=== PATIENT | male | born 1955 | race Caucasian/White ===

== ENCOUNTER 2023-03-07 08:36 | Outpatient (OUT) | payer OTHER, SELFPAY ==
[2023-03-07 09:35] LABS: Basophils Absolute Auto 0.1 10^3/uL (0.0-0.1); Basophils Percent Auto 0.9 % (0.2-2.0); Eosinophils Absolute Auto 0.2 10^3/uL (0.0-0.7); Hematocrit 38.3 % (42.0-54.0); Immature Granulocytes Abs Auto 0.07 10^3/uL (0.00-0.03); Immature Granulocytes Pct Auto 1.1 % (0.0-0.5); Lymphocytes Percent Auto 15.1 % (20.5-60.0); Mean Corpuscular HGB Conc 33.9 g/dL (29.9-35.2); Mean Platelet Volume 9.9 fL (9.5-13.5); Monocytes Absolute Auto 0.5 10^3/uL (0.3-0.8); Monocytes Percent Auto 7.1 % (1.7-12.0); Neutrophils Absolute Auto 4.6 10^3/uL (1.4-6.5); Neutrophils Percent Auto 72.8 % (43.0-75.0); Platelet Count 285 10^3/uL (150-450); Red Blood Count 3.61 10^6/uL (4.70-6.10); Red Cell Distribution Width 15.2 % (11.0-15.0); White Blood Count 6.4 10^3/uL (4.0-11.0)
[2023-03-07 09:38] LABS: Alanine Aminotransferase 27 U/L (16-63); Albumin Globulin Ratio 1.1; Albumin Level 3.9 g/dL (3.4-5.0); Alkaline Phosphatase 72 U/L (46-116); Anion Gap 14.7; Aspartate Amino Transferase 13 U/L (15-37); BUN Creatinine Ratio 16.1; Bilirubin Total 0.4 mg/dL (0.2-1.0); Calcium 9.3 mg/dL (8.5-10.1); Carbon Dioxide 23.6 mmol/L (21.0-32.0); Chloride 109 mmol/L (98-107); Estimated GFR (African America 48 (>=60); Estimated GFR (Non-African Ame 39 (>=60); Globulin 3.7 g/dL; Glucose 125 mg/dL (74-106); Potassium 4.3 mmol/L (3.5-5.1); Sodium 143 mmol/L (136-145); Total Protein 7.6 g/dL (6.4-8.2)
[2023-03-07 09:53] LABS: Mean Corpuscular Volume 106.1 fL (80.0-94.0)
[2023-03-08 16:09] LABS: Alpha-1-Globulin 0.2 g/dL (0.0-0.4); Alpha-2-Globulin 0.7 g/dL (0.4-1.0); Erythropoietin (EPO), Serum 23.6 mIU/mL (2.6-18.5); Free Kappa Lt Chains,S 57.7 mg/L (3.3-19.4); Free Lambda Lt Chains,S 39.2 mg/L (5.7-26.3); Immunoglobulin A, Qn, Serum 250 mg/dL (61-437); Immunoglobulin G, Qn, Serum 1051 mg/dL (603-1613); Immunoglobulin M, Qn, Serum 97 mg/dL (20-172); Kappa/Lambda Ratio,S 1.47 (0.26-1.65); Protein, Total 6.8 g/dL (6.0-8.5)
== END 2023-03-07 08:37 | disposition home or self-care (01) ==
LOC: LAB 08:41
PROVIDERS: PCP Family Medicine
DX: D64.9 Anemia, unspecified (principal); D75.89 Other specified diseases of blood and blood-forming organs; E11.9 Type 2 diabetes mellitus without complications
CPT/HCPCS: 36415; 80053; 82668; 82784; 84155; 84165; 85025; 86334

== ENCOUNTER 2023-10-26 14:44 | Outpatient (OUT) | payer OTHER, SELFPAY ==
[2023-10-26 15:14] LABS: Potassium 4.4 mmol/L (3.5-5.1)
== END 2023-10-26 14:45 | disposition home or self-care (01) ==
LOC: LAB 14:45
PROVIDERS: PCP Family Medicine; Visit Provider Family Medicine
DX: N18.32 Chronic kidney disease, stage 3b (principal)
CPT/HCPCS: 36415; 84132

== ENCOUNTER 2023-12-03 18:34 | Emergency (ER) | payer OTHER, SELFPAY ==
[2023-12-03] VITALS (8 sets, daily range): BP systolic 126–179; BP diastolic 64–80; PULSE 69–88; TEMP 36.7; O2SAT 93–98; BMI 32.7
--- OUTSIDE RECORDS SUMMARY | 2023-12-03 18:42 | XMS_ITS | CCD ---
Author Organization [facility] Care Team Providers Care Apprentice Carpenter Name Role Phone MARIA ALEJANDRA ANDREA Attending Unavailable MARIA ALEJANDRA ANDREA Admitting Unavailable FAWWAD, NEVILLE Primary Care Unavailable MARIA ALEJANDRA ANDREA Consulting Unavailable MARKER, DR DRUMMOND Admitting Unavailable FAWWAD, NEVILLE Primary Care Unavailable MARKER, DR DRUMMOND Consulting Unavailable MARKER, DR DRUMMOND Attending Unavailable AHDOJOHN PAUL, LINDA Consulting Unavailable King WilliamJhon vazquez Consulting Unavailable FAWWAD, NEVILLE Admitting Unavailable FAWWAD, NEVILLE Primary Care Unavailable RADHA, DR GALILEO Bueno Consulting Unavailable FAWWAD, NEVILLE Attending Unavailable FAWWAD, NEVILLE Consulting Unavailable RAUL BYRD Admitting Unavailable RAUL BYRD Consulting Unavailable FAWWAD, NEVILLE Primary Care Unavailable RAUL BYRD Attending Unavailable RAUL BYRD Attending Unavailable RAUL BYRD Admitting Unavailable RAUL BYRD Primary Care Unavailable RAUL BYRD Consulting Unavailable Raul Byrd Primary Care Physician [phone] Raul Byrd Primary Care Physician Al-Marrawi, Yamilethd Yaser Attending Unavailabl e Al-Marrawi, Mhd Yaser Admitting Unavailabl e Al-Marrawi, Mhd Yaser Attending Unavailabl e Al-Marrawi, Mhd Yaser Admitting Unavailabl e Al-Marrawi, Mhd Yaser Attending Unavailabl e Al-Marrawi, Mhd Yaser Admitting Unavailabl e Al-Marrawi, Mhd Yaser Attending Unavailabl e Al-Marrawi, Mhd Yaser Admitting Unavailabl e Al-Marrawi, Mhd Yaser Attending Unavailabl e Al-Marrawi, Mhd Yaser Attending Unavailabl e Al-Marrawi, Mhd Yaser Admitting Unavailabl e Al-Marrawi, Mhd Yaser Attending Unavailabl Yariel Nguyen Attending Unavailabl e Rox, Camille Child Attending Unavailable Yariel Sethi Attending Unavailsimon e Rox, Camille Child Attending Unavailable Raul Byrd Referring Unavailable Raul Byrd Attending Unavailable Raul Byrd Admitting Unavailable Raul Byrd Attending Unavailable SHARI TURNER Attending Unavailable Raul Byrd Attending Unavailable Raul Byrd Attending Unavailable Raul Byrd Attending Unavailable Allergies Allergy Classification Reported Allergen(s) Allergy Type Date of Onset Reaction(s) Facility (2 sources) Amino Acids; 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: [lisinopril] Drug Allergy [facility] Repository (2 sources) Dextroamphetamin e; 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: [Lipitor] Drug Allergy [facility] Rep[facility] (2 sources) Losartan; 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: [losartan] Drug Allergy 2 [facility] Rep[facility] (2 sources) Simvastatin; 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: [simvastatin] Drug Allergy [facility] Rep[facility] (13 sources) atorvastatin; 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: [atorvastatin] Drug Allergy Cramp (finding) [facility] (14 sources) Dextroamphetamin e; 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: [dextroamphetami ne] Drug Allergy Cramp (finding) [facility] (14 sources) Isoleucine / Leucine / Valine; 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: [parenteral nutrition solution] Drug Allergy Cramp (finding) [facility] (13 sources) Lisinopril; 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: [lisinopril] Drug Allergy Cramp (finding) [facility] (13 sources) Losartan; 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: [losartan] Drug Allergy 2 Other: See Comments [facility] (13 sources) Simvastatin; 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: [simvastatin] Drug Allergy Cramp (finding) [facility] Medications Current Medications Medication Drug Class(es) Dates Sig (Normalized) Sig (Original) 0.5 ML semaglutide 2 MG/ML Auto-Injector (2 sources) Start: 10-10-2023 inject 1 mg by subcutaneous injection every week semaglutide 1 mg/0.5 mL (1 mg dose) subcutaneous solution 1 mg, SubCutaneous, qWeek, # 4 EA, Refills(s) 0, Pharmacy: [facility]/pharmacy #[id number], 172, cm, 10/10/23 13:06:00 EST, Height/Length Dosing, 103.5, kg, 10/10/23 13:10:00 EST, Weight Dosing Start Date: 10/10/23 Status: Ordered 1 mg dose 1.5 ml semaglutide 1.34 mg/ml pen injector (14 sources) Start: 04-11-2023 inject 1 mg by subcutaneous injection every week Ozempic 2 mg/1.5 mL (1 mg dose) subcutaneous solution 1 mg, SubCutaneous, qWeek, 3 EA, Refill(s) 3, [facility] [id number], 172, cm, 05/31/23 15:29:00 EDT, Height/Length Dosing, 102.6, kg, 05/31/23 15:29:00 EDT, Weight Dosing Start Date: 06/08/23 Status: Ordered Start: 01-10-2023 inject 1 mg by subcu taneous injection every week Ozempic 2 mg/1.5 mL (1 mg dose) subcutaneous solution 1 mg, SubCutaneous, qWeek, 3 EA, Refill(s) 3, [facility]/pharmacy #[id number], 172, cm, 01/10/23 14:25:00 EDT, Height/Length Dosing, 102.5, kg, 01/10/23 14:25:00 EDT, Weight Dosing Start Date: 01/10/23 Status: Ordered Start: 09-09-2022 inject 0.5 mg by sub cutaneous injection every week Ozempic 2 mg/1.5 mL (0.25 mg or 0.5 mg dose) subcutaneous solution 0.5 mg, SubCutaneous, qWeek, 9 mL, Refill(s) 1, 90 day supply, [facility]/pharmacy #[id number], 172, cm, 09/09/22 15:33:00 EST, Height/Length Dosing, 104.4, kg, 09/09/22 15:33:00 EST, Weight Dosing Start Date: 09/09/22 Status: Ordered Start: 03-16-2022 inject 0.25 mg by velazco bcutaneous injection every week Ozempic 2 mg/1.5 mL (0.25 mg or 0.5 mg dose) subcutaneous solution 0.25 mg, SubCutaneous, qWeek, 9 mL, Refill(s) 1, 90 day supply, [facility]/pharmacy #[id number], 172, cm, 02/11/22 15:55:00 EDT, Height/Length Dosing, 110.5, kg, 02/11/22 15:55:00 EDT, Weight Dosing Start Date: 03/16/22 Status: Ordered Start: 02-11-2022 End: 03-11-2022 inject 0.25 mg by subcutaneous injection every week Ozempic 2 mg/1.5 mL (0.25 mg or 0.5 mg dose) subcutaneous solution 0.25 mg, SubCutaneous, qWeek for 4 week(s), 2 EA, Refill(s) 0, [facility]/pharmacy #[id number], 172, cm, 02/11/22 15:55:00 EDT, Height/Length Dosing, 110.5, kg, 02/11/22 15:55:00 EDT, Weight Dosing Start Date: 02/11/22 Stop Date: 03/11/22 Status: Ordered valsartan 160 mg oral tablet (13 sources) Angiotensin 2 Receptor Mac Start: 10-10-2023 take 1 tablet by mouth once daily valsartan 160 mg Tab 160 mg = 1 tab(s), Oral, Daily, # 90 tab(s), Refills(s) 3, Pharmacy: [facility]/pharmacy #[id number], 172, cm, 10/10/23 13:06:00 EST, Height/Length Dosing, 103.5, kg, 10/10/23 13:10:00 EST, Weight Dosing Start Date: 10/10/23 Status: Ordered Start: 01-10-2023 take 1 tablet by demetrius th once daily valsartan 160 mg Tab 160 mg = 1 tab(s), Oral, Daily, # 90 tab(s), Refills(s) 3, Pharmacy: [facility]/pharmacy #[id number], 172, cm, 01/10/23 14:25:00 EDT, Height/Length Dosing, 102.5, kg, 01/10/23 14:25:00 EDT, Weight Dosing Start Date: 01/10/23 Status: Ordered Start: 09-09-2022 take 1 tablet by demetrius th once daily valsartan 160 mg Tab 160 mg = 1 tab(s), Oral, Daily, # 90 tab(s), Refills(s) 3, Pharmacy: [facility]/pharmacy #[id number], 172, cm, 09/09/22 15:33:00 EST, Height/Length Dosing, 104.4, kg, 09/09/22 15:33:00 EST, Weight Dosing Start Date: 09/09/22 Status: Ordered Start: 02-11-2022 End: 08-10-2022 take 1 tablet by mouth once daily valsartan 160 mg Tab 160 mg = 1 tab(s), Oral, Daily, X 90 day(s), # 90 tab(s), Refills(s) 1, Pharmacy: [facility]/pharmacy #[id number], 172, cm, 02/11/22 15:55:00 EDT, Height/Length Dosing, 110.5, kg, 02/11/22 15:55:00 EDT, Weight Dosing Start Date: 02/11/22 Stop Date: 08/10/22 Status: Ordered vitamin b12 1 mg/ml injectable solution (6 sources) Vitamin B12 Start: 10-03-2023 inject 1000 ug by intramuscular injection every other week cyanocobalamin 1000 mcg/mL Inj 1,000 mcg, IntraMuscular, q2wk, # 30 mL, Refills(s) 5, Pharmacy: [facility]/pharmacy #[id number], 172, cm, 10/03/23 15:12:00 EST, Height/Length Dosing, 102.3, kg, 10/03/23 15:12:00 EST, Weight Dosing Start Date: 10/03/23 Status: Ordered Start: 10-03-2023 inject 1000 ug by in tramuscular injection every other week cyanocobalamin 1000 mcg/mL Inj 1,000 mcg, IntraMuscular, q2wk, # 30 mL, Refills(s) 5, Pharmacy: [facility]/pharmacy #[id number], 172, cm, 10/03/23 15:12:00 EST, Height/Length Dosing, 102.3, kg, 10/03/23 15:12:00 EST, Weight Dosing Start Date: 10/03/23 Status: Ordered Start: 05-31-2023 inject 1000 ug by in tramuscular injection every other week cyanocobalamin 1000 mcg/mL Inj 1,000 mcg, IntraMuscular, q2wk, # 30 mL, Refills(s) 5, Pharmacy: [facility]/pharmacy #[id number], 172, cm, 05/31/23 15:29:00 EDT, Height/Length Dosing, 102.6, kg, 05/31/23 15:29:00 EDT, Weight Dosing Start Date: 05/31/23 Status: Ordered Problems Active Problems Problem Classification Problem Date Documented Da te Episodic/Chronic Abdominal pain (5 sources) Unspecified abdominal pain; 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: [Lower abdominal pain, unspecified] Onset: 10-30-2021 Episodic Acute and unspecified renal failure (1 source) Acute kidney failure, unspecified; 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: [ACUTE KIDNEY FAILURE UNSPECIFIED] Onset: 11-05-2021 Episodic Cancer of prostate (13 sources) Malignant tumor of prostate Onset: 11-04-2021 11-12-2021 Chronic Cancer of prostate (1 source) Personal history of malignant neoplasm of prostate; 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: [PERSONAL HX MALIG NEOPLASM PROSTATE] Onset: 10-30-2021 Episodic Chronic kidney disease (16 sources) Chronic kidney disease, unspecified; 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: [Chronic kidney disease stage 3] Onset: 10-30-2021 Chronic Deficiency and other anemia (11 sources) Macrocytic anemia 02-16-2022 Episodic Deficiency and other anemia (2 sources) Nutritional anemia; 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: [Nutritional anemia, unspecified] Onset: 09-09-2022 Episodic Diabetes mellitus with complications (20 sources) Type 2 diabetes mellitus with diabetic chronic kidney disease; 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: [Type 2 diabetes mellitus with diabetic nephropathy] Onset: 10-15-2021 Chronic Diabetes mellitus without complication (6 sources) Type 2 diabetes mellitus without complications; 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: [Type 2 diabetes mellitus] Onset: 11-05-2021 11-12-2021 Chronic E Codes: Adverse effects of medical drugs (1 source) Adverse effect of other opioids, initial encounter; 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: [ADVERSE EFF OTH OPIOIDS INITIAL ENC] Onset: 11-05-2021 Episodic Essential hypertension (15 sources) Essential (primary) hypertension; 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: [Essential hypertension] Onset: 11-04-2021 Chronic Other aftercare (1 source) Other group home (current) drug therapy; 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: [OTH PENITENTIARY CURRENT DRUG THERAPY] Onset: 11-05-2021 Episodic Other gastrointestinal disorders (1 source) Drug induced constipation; 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: [DRUG INDUCED CONSTIPATION] Onset: 11-05-2021 Episodic Other gastrointestinal disorders (6 sources) Constipation 04-11-2023 Episodic Other male genital disorders (3 sources) Testicular pain, unspecified; 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: [TESTICULAR PAIN UNSPECIFIED] Onset: 10-28-2021 Episodic Other male genital disorders (1 source) Hydrocele, unspecified; 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: [HYDROCELE UNSPECIFIED] Onset: 10-30-2021 Episodic Other nutritional; endocrine; and metabolic disorders (1 source) Obese class I; 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: [Body mass index (BMI) 34.0-34.9, adult] Onset: 05-17-2022 Chronic Other nutritional; endocrine; and metabolic disorders (1 source) Obese class II; 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: [Body mass index (BMI) 35.0-35.9, adult] Onset: 09-09-2022 Chronic Other nutritional; endocrine; and metabolic disorders (1 source) Overweight in adulthood with body mass index of 25 or more but less than 30; 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: [Body mass index (BMI) 25.0-25.9, adult] Onset: 02-11-2022 Episodic Other screening for suspected conditions (not mental disorders or infectious disease) (1 source) Encounter for screening for malignant neoplasm of prostate; 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: [ENC SCREEN MALIG NEOPLASM PROSTATE] Onset: 10-15-2021 Episodic Residual codes; unclassified (1 source) Acquired absence of other genital organ(s); 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: [ACQUIRED ABSENCE OTH GENITAL ORGANS] Onset: 10-30-2021 Episodic Residual codes; unclassified (1 source) Patient encounter status; 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: [Other specified health status] Onset: 02-11-2022 Episodic Screening and history of mental health and substance abuse codes (3 sources) Personal history of nicotine dependence; 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: [H/O: Disorder] Onset: 10-30-2021 Episodic Spondylosis; intervertebral disc disorders; other back problems (1 source) Radiculopathy, lumbar region; 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: [RADICULOPATHY LUMBAR REGION] Onset: 11-05-2021 Episodic Sprains and strains (1 source) Strain of muscle, fascia and tendon of abdomen, initial encounter; 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: [STRAIN MUSC FASCIA TENDON ABD INIT] Onset: 11-05-2021 Episodic Unclassified (3 sources) LOW BACK PAIN, UNSPECIFIED; 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: [LOW BACK PAIN, UNSPECIFIED] Onset: 11-05-2021 Unclassified (1 source) CONTACT W/AND (SUSP) EXPOS COVID-19; 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: [CONTACT W/AND (SUSP) EXPOS COVID-19] Onset: 11-05-2021 Unclassified (13 sources) Non-smoker 11-12-2021 Unclassified (7 sources) Patient encounter status 02-11-2022 Past or Other Problems Problem Classification Problem Date Documented Da te Episodic/Chronic Inflammatory conditions of male genital organs (5 sources) Epididymitis Onset: 05-17-2022 05-17-2022 Episodic Other connective tissue disease (1 source) Myositis Onset: 11-12-2021 05-17-2022 Episodic Unclassified (1 source) LOW BACK PAIN, UNSPECIFIED; 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: [LOW BACK PAIN, UNSPECIFIED] Onset: 11-02-2021 Results Test Name Value Interpretation Reference Range Facility Ambulatory Visit Summaryon 0 11-29-2023 Ambulatory Visit Summary KENYETTA SCHUMACHER I :1955 Visit Date:11/29/2023 Ambulatory Visit Instructions Your Diagnosis BMI 33.0-33.9,adult Nasal congestion Your Care Team Attending Physician - SHARI TURNER CNP Primary Care Physician - Raul Byrd MD This Is Your Medications List [facility] Prescription (IM 3ml syringes/needles 25gauge, 1 ) cyanocobalamin (cyanocobalamin 1000 mcg/mL Inj) semaglutide (semaglutide 1 mg/0.5 mL (1 mg dose) subcutaneous solution) valsartan (valsartan 160 mg Tab) Procedures Performed Colonoscopy (2018), Endoscopic prostatectomy (2005), Transurethral prostatectomy (2005), History of tonsillectomy (1962), Repair of tendo achilles. Discharge Vitals Temperature (Temporal Artery) 37 ?C Heart Rate (Peripheral) 79 Blood Pressure 120/70 Height 172 cm Height 68 in Weight 99.4 kg Weight 218.68 lb BMI 33.6 What to do next Scheduled Follow-Up Appointments Tuesday 1:00 PM EDT With: Sb LUNDY, Raul Preston Where: [facility] [place] Normal [facility] Family Medicine Office/Clini c Noteon 11-29-2023 Family Medicine Office/Clinic Note Chief Complaint cold like symptoms HPI Staff Patient of Dr. Byrd presents for acute visit. Respiratory C/O: Duration: today Body aches: yes Chest congestion: no Chills: yes Cough: yes Ear complaints: no Eye itching/watering: no Fever: no Headache: yes Nasal congestion: no Nasal discharge: yes clear Poor appetite: no Reduced activity: yes Sinus pain/pressure: no Sneezing: no Sputum production: no Wheezing: no Ill contacts: no Remedies tried: OTC cold medicine Negative COVID test at home. History of Present Illness 68 [address] old patient of Dr. Byrd presents for evaluation of URI.He reports he went to his son's for [facility] and yesterday he started with a sore throat. He reports he took a COVID 19 test yesterday which was negative. He reports this AM he had some chills, headache, nasal drainage, cough, and body aches. He reports he had a mild fever this AM, less than 100 degrees. He reports he is a diabetic and his blood sugars have been under 100. His last HgbA1C was 5.9% in September 2023. He states his symptoms remind him of when he has had bronchitis and COVID in the past. 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 He reports in the past when this has happened, he received a Z-pack and that took care of the symptoms. Review of Systems PHQ Score Initial Depression Screen Score: 0 SCORE Constitutional: no fever, mild chills, no sweats, no weakness Skin: no Jaundice, no rash, no lesions, nopetechiae ENMT: no ear pain, moderate sore throat, no congestion, no hoarseness Respiratory: no shortness of breath, mild cough, no orthopnea, no wheezing Cardiovascular: no chest pain, no palpitations, no edema Musculoskeletal: no back pain, no trauma Neurologic: no headache, no dizziness, no numbness, no weakness Psychiatric: no sleeping problems, no irritability, no mood swings/depression. Additional ROS info: Except as noted in the above Review of Systems and in the History of Present Illness all other systems have been reviewed and are negative or noncontributory. Physical Exam Vitals & Measurements T: 37 ?C(Temporal Artery) HR: 79(Peripheral) BP: 120/70 SpO2: 95% HT: 68 in HT: 172 cm WT: 99.4 kg WT: 218.68 lb BMI: 33.6 General: alert, no acute distress ENMT: TM's clear, oral mucosa moist, yes mild, pharyngeal erythema or exudate Cardiovascular: regular rate and rhythm, normal peripheral perfusion Respiratory: Lungs CTA, respirations non labored Extremities: no deformity, no trauma Neurological: oriented x 4, LOC appropriate for age, CN II-XII intact, motor strength equal & normal bilaterally, sensation equal & normal bilaterally, speech normal Assessment/Plan 1. Respiratory infection (J98.8: Other specified respiratory disorders) Discussed viral vs bacterial infections with patient Explained that patient should take a second COVID test tomorrow as the recommendation is to wait 48-72 hours after symptoms start Discussed waiting until after the second COVID test to start the ATB monitor blood sugar f/u if no improvement in 3-5 days Ordered: azithromycin, = 1 packet(s), Oral, As Directed, as directed on package labeling, X 5 day(s), # 6 tab(s), Refills(s) 0, Pharmacy: [facility]/pharmacy #[id number], 172, cm, 11/29/23 10:49:00 EDT, Height/Length Dosing, 99.4, kg, 11/29/23 10:49:00 EDT, Weight Dosing 2. BMI 33.0-33.9,adult (Z68.33: Body mass index [BMI] 33.0-33.9, adult) The standard range for ages 18 and older is >=18.5 and < 25 kg/m2. Your BMI today was above this range, this falls in the overweight to obese category and there are medical benefits to weight loss. We can offer counselling, referral, and/or medical support in addressing this problem. Your BMI and weight management will be followed at subsequent visits. 3. Nasal congestion (R09.81: Nasal congestion) Discussed viral vs bacterial infections with patient Explained that patient should take a second COVID test tomorrow as the recommendation is to wait 48-72 hours after symptoms start Discussed waiting until after the second COVID test to start the ATB f/u if no improvement in 3-5 days Ordered: azithromycin, = 1 packet(s), Oral, As Directed, as directed on package labeling, X 5 day(s), # 6 tab(s), Refills(s) 0, Pharmacy: [facility]/pharmacy #[id number], 172, cm, 11/29/23 10:49:00 EDT, Height/Length Dosing, 99.4, kg, 11/29/23 10:49:00 EDT, Weight Dosing Influenza Type A&B POC 14242 Follow-up No qualifying data available Problem List/Past Medical History Ongoing Constipation Diabetic nephropathy associated with type 2 diabetes mellitus Epididymitis Essential hypertension Hydrocele of testis Hypertensive disorder Macrocytic anemia Malignant tumor of prostate Non-smoker Physical exam Proteinuria Stage 3b chronic kidney disease Type 2 diabetes mellitus with stage 3b chronic kidney disease, without long-term current use of insulin Historical No qualifying data Procedure (more content not included)... Normal [facility] Comment on above: Result Comment: Elec tronically Signed By: SHARI TURNER CNP\.br\Date and Time Signed: 11/29/23 12:05 EDT Physician Orderon 11-21-2023 Physician Order [id number] Normal [facility] U Microalbon 11-15-2023 Albumin DL <= 20 mg/L (U) [Mass/Vol] 71.0 mg/dL High 0.0-1.9 [facility] Comment on above: Result Comment: This result was corrected due to a unit change error. Please see rachael for further explanation. Performed By: #### [id number] ####[facility] [id number] [place] [address] Physician Orderon 11-03-2023 Physician Order [id number] Normal [facility] Lab Reportson 11-01-2023 Lab Reports [id number] Normal [facility] Consent for Treatmenton 030 Consent for Treatment [id number] Normal [facility] Oncology Progress Noteon Oncology Progress Note Diagnoses 1. Macrocytic anemia (D53.9: Nutritional anemia, unspecified) 2. Stage 3b chronic kidney disease (N18.32: Chronic kidney disease, stage 3b) Oncological History/ROS/PE/Assessment and Plan Chief Complaint Follow-up for macrocytosis history and lab results. History of Present Illness Mr. Schumacher is a 68 year old male former smoker with a history of prostate cancer, HTN, diabetes, stage 3b CKD, macrocytic anemia, epididymitis. Surgical history includes prostatectomy and tonsillectomy. No family history of cancer. He is referred by Dr. Byrd for his macrocytic anemia. Most recent labs reveal hgb 13.4 with elevated MCV, MCH and RDW. Wbc and platelets WNL. Creatinine is elevated at 1.9, calcium ok. Total protein 8, albumin WNL. Prostate cancer. Had surgery and no recurrence since then, followed up for 10 years in [place] and no longer is followed, was about 17 years ago now. Initial consult exam 02/03/23 energy is good, he feels great. Denies sob, chest pain, fevers, chills, sweats, n/v/d/c states he has always been told he has large red cells for as long as he can remember has no pain anywhere. does not drink 03/22/2023 visit: Patient is here for the lab results. He is here for follow-up for his chronic macrocytosis which she was told he has had for like over 20 to 30 years. He denied drinking alcohol more than once a month. He denied being ever alcoholic or has any history of alcohol abuse. He is not on any seizure medications. Current medication which I reviewed with cause macrocytosis. Patient denied ever having history of jaundice. No history of autoimmune diseases to his knowledge that lupus or Raynaud's phenomenon or rheumatoid arthritis and no hematuria or red urine at night or in cold weather. Patient denies any major bruises otherwise. He is not aware of having any family history with hereditary spherocytosis. His review of 12 systems was reviewed and are negative. 05/31/23: he is here for 9 weeks follow-up for his macrocytosis, and B12 deficiency. He also has a history of elevated free light chains which need to be followed in the next 2 to 3 months. He denies any new complaints. He denies any B symptoms. He has been getting the B12 IM injections in his deltoid muscles weekly for the last 8 weeks. He is here for the results of the labs to further outline the plan of care for his B12 deficiency and macrocytosis. He denies any jaundice and denies any abdominal pain or nausea or vomiting or fevers. He denies any bone pain as well. His labs on 05/23/2023 revealed normal haptoglobin of 121. B12 improved to 1120 from 236. His direct Lazaro test was negative also. His LDH was normal 157 in February 2023. Labs from 05/23/2023 revealed hemoglobin stable 13.2 MCV improved from 116 to 105. WBC 9.0 and platelet count of 360,000. 10/03/2023 He is here for 4 months follow-up for his macrocytosis with B12 deficiency. He is taking his B12 injection every other week and is feeling fine. He denies any jaundice or hemolysis symptoms of chills or rigors or fevers and denied any shortness of breath or chest pain or dizziness. The he denied any need for blood transfusion and here he is here for the lab results which revealed normal B12 level normal WBC of 6.9 hemoglobin 12.8 MCV of 106 RDW 16.7 platelet of 336 with normal B12 991, folate 12.4, ferritin 225 and normal M spike or no M spike observed. Immunoglobulins levels are within normal and the free kappa light chains are mildly elevated 71 and 45 with a ratio was normal 1.58. And total bilirubin is actually also normal. 10/31/23: He is here for the results of peripheral blood flow cytometry for hereditary spherocytosis and for the MDS FISH. He denies any bleeding from any source and denies using any seizure medications however he still using the B12 injection every 2 weeks. He denies any enlarged lymph nodes or B symptoms and denies any jaundice. On 10/05/2023 he had peripheral blood flow cytometry for hereditary spherocytosis using the RBC band 3 protein reduction technique revealed no reduction in the RBC cell surface band 3 fluorescence was detected. This reduces, but does not eliminate the possibility of hereditary spherocytosis. His peripheral blood FISH for MDS done on 10/05/2023 revealed normal FISH for 5 q., 7 q., 8 q., and 20 q. So the study was normal for those 5 chromosomal abnormalities but this does not rule out MDS associated with other signal or chromosomal abnormalities. 12 point systems were reviewed and are negative Review of Systems Constitutional: Negative. Eye: Negative. Ear/Nose/Mouth/Throat: Negative. Respiratory: Negative. Cardiovascular: Negative. Gastrointestinal: Negative. Genitourinary: Negative. Hematology/Lymphatics: Negative. Endocrine: Negative. Immunologic: Negative. Musculoskeletal: Negative. Integumentary: Negative. Neurologic: Negative. Psychiatric: Negative. Physical Examination General: Alert and oriented, No acute distress. Eye: Pupils are equa (more content not included)... Normal [facility] Lab Miscellaneous-LCon 10-13 Lab Miscellaneous See Ref Report Invalid Interpretation Code [facility] Comment on above: Order Comment: this test is to be sent to [facility]. and they will forward this test to [facility] for testing. Account bill sent to [employer] on manual req. Lab Mis #[id number] and add to req for test to be forwarded to [facility] test number is [id number]. Per onc. patient to go to OP for testing. Copy of papers were sent to out patient so they know what to draw. [email or web address] 10/05/2023 09:40:45 EST Result Comment: Perf ormed at: [address] [id number] PhD Celestine Bone Performed at: [address] [id number] PhD Celestine Bone See scanned report Performed By: #### 1 [id number] ####[facility] [place] [address] Physician Orderon 10-13-2023 Physician Order [id number]#1.00TIFF Normal [facility] Reference Lab Reporton 10-13 Reference Lab Report [id number]#1.00TIFF Normal [facility] Reference Lab Reporton 10-12 Reference Lab Report [id number]#1.00TIFF Normal [facility] [id number] 10-11-2023 HbA1c (Bld) [Mass fraction] 5.9 % Normal <=5.9 [facility] Comment on above: Performed By: #### 2 589316, 9902352, [id number], [id number] ####[facility] [address] [place] [address] CHEMISTRYOrdered By: SYSTEM SYSTEM on 10-10-2023 Albumin [Mass/Vol] 4.5 g/dL Normal 3.3 - 5.0 gm/dL [facility] Albumin/Globulin [Mass ratio] 1.5 {ratio} Normal 1.1 - 2.2 [facility] Alk Phos 61 [iU]/d Normal 21 - 98 Int._Unit/L [facility] ALT 16 [iU]/d Normal 6 - 46 Int._Unit/L [facility] Anion gap [Moles/Vol] 14 mmol/L Normal 6 - 16 mEq/L [facility] AST 17 [iU]/d Normal 5 - 43 Int._Unit/L [facility] Bili Total 0.4 mg/dL Normal 0.0 - 1.1 mg/dL [facility] Calcium [Mass/Vol] 9.4 mg/dL Normal 8.9 - 11. 1 mg/dL [facility] Chloride [Moles/Vol] 109 mmol/L Normal 101 - 111 mmol/L [facility] Cholesterol [Mass/Vol] 107 mg/dL Low 120 - 200 mg/dL [facility] Cholesterol in HDL [Mass/Vol] 21 mg/dL Invalid Interpretation Code [facility] Comment on above: Result Comment: '>= 60 LOW RISK' '<= 40 HIGH RISK' Cholesterol in LDL [Mass/Vol] 51 mg/dL Normal <=129mg/dL [facility] CO2 [Moles/Vol] 23 mmol/L Normal 21 - 31 mmol/L [facility] Creatinine [Mass/Vol] 1.9 mg/dL High 0.5 - 1.3 mg/dL [facility] eGFR 38 mL/min/1.73 m2 Low >=59mL/min / 1.73 m2 [facility] Globulin (S) [Mass/Vol] 3.0 g/dL Normal 1.4 - 4.0 gm/dL [facility] Glucose [Mass/Vol] 112 mg/dL Normal 55 - 199 mg/dL [facility] Potassium [Moles/Vol] 5.4 mmol/L High 3.5 - 5.3 mmol/L [facility] Protein [Mass/Vol] 7.5 g/dL Normal 6.0 - 7.8 gm/dL [facility] Sodium [Moles/Vol] 141 mmol/L Normal 135 - 145 mmol/L [facility] Triglyceride [Mass/Vol] 429 mg/dL High <=149mg/dL [facility] U Microalb 71.0 microgram/mL High 0.0 - 19.0 mcg/mL [facility] Urea nitrogen [Mass/Vol] 34 mg/dL High 5 - 21 mg/dL [facility] Urea nitrogen/Creatinine [Mass ratio] 18 mg/mg Normal 10 - 20 [facility] VLDL Unable to Calculate mg/dL Invali d Interpretation Code 7 - 40 mg/dL [facility] Comment on above: Result Comment: 'FELY BLE TO REPORT. TRIG > 400 mg/dl' CMPon 10-10-2023 Albumin [Mass/Vol] 4.5 g/dL Normal 3.3-5.0 [facility] Comment on above: Performed By: #### 2 085719, 1960686, 84749407, [id number] ####[facility] [address] [place] [address] Albumin/Globulin [Mass ratio] 1.5 {ratio} Normal 1.1-2.2 [facility] Comment on above: Performed By: #### 2 520468, 1228934, 39904563, [id number] ####[facility] [address] [place] [address] Alk Phos 61 Int._Unit/L Normal 21-98 [facility] Comment on above: Performed By: #### 2 410672, 4772044, 79552737, [id number] ####[facility] [address] [place] [address] ALT 16 Int._Unit/L Normal 6-46 [facility] Comment on above: Performed By: #### 2 281823, 9714486, 26467544, [id number] ####[facility] [address] [place] [address] Anion gap [Moles/Vol] 14 mmol/L Normal 6-16 [facility] Comment on above: Performed By: #### 2 805884, 9186607, 89096444, 707656711 ####[address] [place] [address] AST 17 Int._Unit/L Normal 5-43 [facility] Comment on above: Performed By: #### 2 134473, 4723068, 50002814, [id number] ####[address] [address] Bili Total 0.4 mg/dL Normal 0.0-1.1 [facility] Comment on above: Performed By: #### 2 827892, 0055186, 53542875, [id number] ####[address] [place] [address] BUN/Creat Ratio 18 No Units Normal 10-20 [facility] Comment on above: Performed By: #### 2 873264, 9211210, 02189062, 856024032 ####[facility] [address] [place] [address] Calcium [Mass/Vol] 9.4 mg/dL Normal 8.9-11.1 [facility] Comment on above: Performed By: #### 2 340179, 1699956, 90115869, 582375846 ####[facility] [address] [place] [address] Chloride [Moles/Vol] 109 mmol/L Normal 101-111 [facility] Comment on above: Performed By: #### 2 710721, 6308627, 83393981, [id number] ####[facility] [address] [place] [address] CO2 [Moles/Vol] 23 mmol/L Normal 21-31 [facility] Comment on above: Performed By: #### 2 937518, 7133091, 51887006, [id number] ####[facility] [address] [place] [address] Creatinine [Mass/Vol] 1.9 mg/dL High 0.5-1.3 [facility] Comment on above: Performed By: #### 2 154741, 6359629, 60435630, 846196941 ####[facility] [address] [place] [address] Globulin (S) [Mass/Vol] 3.0 g/dL Normal 1.4-4.0 [facility] Comment on above: Performed By: #### 2 906158, 6636626, 67924525, 143488567 ####[facility] [address] [facility] [place] [address] Glucose [Mass/Vol] 112 mg/dL Normal 55-199 [facility] Comment on above: Performed By: #### 2 912967, 5769974, 95588269, 049321771 ####[facility] [address] [facility] [place] [address] Potassium [Moles/Vol] 5.4 mmol/L High 3.5-5.3 [facility] Comment on above: Performed By: #### 2 269398, 2315847, 02321535, 906439627 ####[facility] [address] [place] [address] Protein [Mass/Vol] 7.5 g/dL Normal 6.0-7.8 [facility] Comment on above: Performed By: #### 2 787727, 9748166, 03661451, 793290951 ####[facility] [address] [facility] [place] [address] Sodium [Moles/Vol] 141 mmol/L Normal 135-145 [facility] Comment on above: Performed By: #### 2 126561, 8999157, 60967707, 177809989 ####[facility] [address] [place] [address] Urea nitrogen [Mass/Vol] 34 mg/dL High 5-21 [facility] Comment on above: Performed By: #### 2 640903, 0264380, 01574993, 022608526 ####[facility] [address] [place] [address] Family Medicine Office/Clini c Noteon 10-10-2023 Family Medicine Office/Clinic Note HPI Staff Kenyetta is a 68 year old male presenting for 6 month follow up DM and htn Do you have any of the following symptoms? Foot Exam: Eye Exam: Last A1C: Hgb A1C %: 5.9 % (09/09/22 16:18:00) Statin: none Patient is here for follow up on hypertension. How often are you checking your blood pressure? _ What are your average readings? _ Yearly BMP: 09/09/22 flu: UTD 05/14/23 History of Present Illness - Here for follow up and CPE - No issues. Physical Exam Vitals & Measurements HR: 86(Peripheral) BP: 138/82 SpO2: 96% HT: 68 in HT: 172 cm WT: 103.5 kg WT: 227.7 lb BMI: 34.99 General: alert, no acute distress ENMT: oral mucosa moist, Cardiovascular: regular rate and rhythm, normal peripheral perfusion Respiratory: Lungs CTA, respirations non labored Extremities: no deformity, no trauma Neurological: oriented x 4, LOC appropriate for age, CN II-XII intact, motor strength equal & normal bilaterally, speech normal Abdomen: Soft, Nontender, Non-distended, + BS Assessment/Plan 1. Physical exam (Z00.00: Encounter for general adult medical examination without abnormal findings) Anticipatory guidance given. Discussed diet and exercise. Discussed immunizations. Ordered: Comprehensive Metabolic Panel HgbA1c Lipid Panel Microalbumin Level Urine 2. Type 2 diabetes mellitus with stage 3b chronic kidney disease, without long-term current use of insulin (E11.22: Type 2 diabetes mellitus with diabetic chronic kidney disease) Well controlled. - A1c today Ordered: Comprehensive Metabolic Panel HgbA1c Lipid Panel Microalbumin Level Urine 3. Stage 3b chronic kidney disease (N18.32: Chronic kidney disease, stage 3b) - Will recheck today - Has improved Ordered: Comprehensive Metabolic Panel HgbA1c Lipid Panel Microalbumin Level Urine 4. Essential hypertension (I10: Essential (primary) hypertension) - At goal Ordered: Comprehensive Metabolic Panel HgbA1c Lipid Panel Microalbumin Level Urine 5. Malignant tumor of prostate (C61: Malignant neoplasm of prostate) - Sees oncology - No issues Ordered: Comprehensive Metabolic Panel HgbA1c Lipid Panel Microalbumin Level Urine 6. BMI 34.0-34.9,adult (Z68.34: Body mass index [BMI] 34.0-34.9, adult) - BMI education given Ordered: Comprehensive Metabolic Panel HgbA1c Lipid Panel Microalbumin Level Urine 7. Non-smoker (Z78.9: Other specified health status) - Please continue to not smoke. Ordered: Comprehensive Metabolic Panel HgbA1c Lipid Panel Microalbumin Level Urine Orders: semaglutide, 1 mg, SubCutaneous, qWeek, # 4 EA, Refills(s) 0, Pharmacy: [facility]/pharmacy #[id number], 172, cm, 10/10/23 13:06:00 EST, Height/Length Dosing, 103.5, kg, 10/10/23 13:10:00 EST, Weight Dosing valsartan, 160 mg = 1 tab(s), Oral, Daily, # 90 tab(s), Refills(s) 3, Pharmacy: [facility]/pharmacy #[id number], 172, cm, 10/10/23 13:06:00 EST, Height/Length Dosing, 103.5, kg, 10/10/23 13:10:00 EST, Weight Dosing Follow-up No qualifying data available Problem List/Past Medical History Ongoing Constipation Diabetic nephropathy associated with type 2 diabetes mellitus Essential hypertension Macrocytic anemia Malignant tumor of prostate Non-smoker Physical exam Stage 3b chronic kidney disease Type 2 diabetes mellitus with stage 3b chronic kidney disease, without long-term current use of insulin Historical No qualifying data Procedure/Surgical History Colonoscopy (2018), Endoscopic prostatectomy (2006), History of tonsillectomy (1962). Medications cyanocobalamin 1000 mcg/mL Inj, 1000 mcg, IntraMuscular, q2wk, 5 refills IM 3ml syringes/needles 25gauge, 1 , See Instructions, 5 refills semaglutide 1 mg/0.5 mL (1 mg dose) subcutaneous solution, 1 mg, SubCutaneous, qWeek valsartan 160 mg Tab, 160 mg= 1 tab(s), Oral, Daily, 3 refills Allergies Amino Acid (Muscle cramps) Lipitor (Muscle cramps) dextroamphetamine (Muscle cramps, Unknown) lisinopril (Muscle cramps) losartan (Other: See Comments) simvastatin (Muscle cramps, Unknown) Social History Alcohol Past, Previous treatment: None., 11/12/2021 Substance Abuse Previous treatment: None., 11/12/2021 Tobacco Former smoker, quit more than 30 days ago Tobacco Use:. Never Smokeless Tobacco Use:. Cigarettes, Started age 27.0 Years. Stopped age 54 Years. Household tobacco concerns: No., 10/10/2023 Family History Acute myocardial infarction: Mother and Father. Immunizations Vaccine Date Status influenza virus vaccine, inactivated 05/14/2023 Recorded influenza virus vaccine, inactivated 05/17/2022 Given influenza virus vaccine, inactivated 05/17/2022 Recorded SARS-CoV-2 (COVID-19) mRNA-1273 vaccine 04/03/2022 Recorded SARS-CoV-2 (COVID-19) mRNA-1273 vaccine 10/04/2021 Recorded SARS-CoV-2 (COVID-19) mRNA-1273 vaccine 07/11/2021 Recorded zoster vaccine live 06/12/2021 Recorded influenza virus vaccine, inactivated 06/01/2021 Recorded zoster vaccin (more content not included)... Normal [facility] Comment on above: Result Comment: Elec tronically Signed By: Sb LUNDY, Raul Preston\.br\Date and Time Signed: 10/10/23 13:35 EST Lipid Panelon 10-10-2023 VLDL UTC Abnormal 7-40 [facility] Comment on above: Result Comment: 'FELY BLE TO REPORT. TRIG > 400 mg/dl' Result verified by Discern Rule. Performed result [facility] (Unable to Calculate) was sent as an Alpha code due the inability to calculate a valid numeric value. Performed By: #### 2 631006, 8808093, 89813658, [id number] ####[address] [place] [address] Cholesterol [Mass/Vol] 107 mg/dL Low 120-200 [facility] Comment on above: Performed By: #### 2 461983, 7107639, 83525635, [id number] ####[facility] [address] [place] [address] Cholesterol in HDL [Mass/Vol] 21 mg/dL Invalid Interpretation Code [facility] Comment on above: Result Comment: '>= 60 LOW RISK' '<= 40 HIGH RISK' Performed By: #### 2 933929, 5030637, 27439334, [id number] ####[facility] [address] [place] [address] Cholesterol in LDL [Mass/Vol] 51 mg/dL Normal <=129 [facility] Comment on above: Performed By: #### 2 432504, 6224879, 30592982, 734632666 ####[facility] [address] [place] [address] Triglyceride [Mass/Vol] 429 mg/dL High <=149 [facility] Comment on above: Performed By: #### 2 687423, 3864762, 54624796, [id number] ####[facility] [address] [place] [address] eGFRon 10-10-2023 eGFR 38 mL/min/1.73 m2 Low >=59 [facility] Comment on above: Order Comment: Order added by Discern Expert. Performed By: #### 2 838491, 7700656, 73259493, [id number] ####[facility] [address] [place] [address] Lab Miscellaneous-LCon 10-07 Lab Miscellaneous COMMENT Invalid Interpretation Code [facility] Comment on above: Result Comment: Test Ordered: [id number] MDS FISH Panel Cells Counted Comment: NAVEED 200/PROBE Cells Analyzed Comment: NAVEED 200/PROBE FISH Result Comment: NAVEED NORMAL MDS PANEL Interpretation Comment: NAVEED The fluorescence in situ hybridization (FISH) analysis of MDS specific chromosome changes was normal. DNA probes specific for chromosome regions 5q33, 7q31, 8q24, and 20q12 showed normal signals in all interphase cells examined. No deletion or trisomy associated with MDS was observed. SPECIFIC PROBE RESULTS: 5q: NORMAL . nuc rhina 5q33(CSF1R,RPS14)x2[200]. 7q: NORMAL. nuc rhina 7q31(MDFICx2)[200]. 8q: NORMAL. nuc rhina 8q24(MYCx2)[200]. 20q: NORMAL. nuc rhina 20q12(PTPRTx2)[200] This analysis is limited to abnormalities detectable by the specific probes included in the study. FISH results should be interpreted within the context of a full cytogenetic analysis and hematologic evaluation. References: Payam Blake (2013) Hematology Am Soc Hematol Educ Program 2013:504-10. PMID: 93073281 Wanda Arriola and Shawnee Shah, (2011) Hematology 16(3):131-8. PMID: 85941034 This test was developed and its performance characteristics determined by [employer] ([employer] It has not been cleared or approved by the U.S. Food and Drug Administration. The DNA probe vendor for this study was [employer] ([employer] Specimen Type Comment: BLOOD Director Review: Comment: NAVEED ABDULLAHI, PHD, FACMG Performed at: [facility] [id number] PhD Celestine Bone Performed By: #### 1 [id number] ####[address] [place] [address] Consent for Treatmenton Consent for Treatment [id number]#1.00TIFF Normal [facility] Lab Miscellaneous-LCon 10-05 Test Code TBD Invalid Interpretation Code [facility] Comment on above: Order Comment: this test is to be sent to [employer]. and they will forward this test to [facility] for testing. Account bill sent to [employer] on manual req. Lab Mis #[id number] and add to req for test to be forwarded to [facility] test number is [id number]. Per onc. patient to go to OP for testing. Copy of papers were sent to out patient so they know what to draw. [email or web address] 10/05/2023 09:40:45 EST Performed By: #### 1 [id number] ####[facility] [address] [place] [address] Test Name spherocytosis Invalid Interpretation Code [facility] Comment on above: Order Comment: this test is to be sent to [facility] and they will forward this test to [facility] for testing. Account bill sent to [facility] on manual req. Lab Misc #[id number] and add to req for test to be forwarded to [facility] test number is [id number]. Per onc. patient to go to OP for testing. Copy of papers were sent to out patient so they know what to draw. [email or web address] 10/05/2023 09:40:45 EST Performed By: #### 1 [id number] ####[address] [place] [address] Reference Laboratory Testing Ordered By: Vandana Sanchez on 10-05-2023 Test Code TBD Invalid Interpretation Code [facility] [facility] Test Name spherocytosis Invalid Interpretation Code [facility] Consent for Treatmenton Consent for Treatment [id number]#1.00TIFF Normal [facility] Consent for Treatment [id number]#1.00TIFF Normal [facility] Immunoglobs. A/E/G/Mon 10-03 IgA Quant duplt test Invalid Interpretation Code [facility] Comment on above: Performed By: #### 2 397311, 17458085, 75647765, 385001589, 87084638, 9520008, 40772880, 4810837, 2563458, 0824165, 2041256, 7073630, 2661308, 7980271, 3691367 ####[facility] [address] [place] [address] IgG Quant duplt test Invalid Interpretation Code [facility] Comment on above: Performed By: #### 2 840798, 33065958, 19068801, 384416862, 19466370, 6943957, 30158382, 6656230, 0814210, 5240837, 7928886, 9425513, 7478875, 5660990, 8952369 ####[facility] [address] [place] [address] IgM Quant duplt test Invalid Interpretation Code [facility] Comment on above: Performed By: #### 2 633973, 12748270, 71443261, 096183374, 00645723, 3569435, 84220691, 2793335, 4573748, 4431658, 4859211, 0747105, 9408311, 7839177, 7038418 ####[address] [address] Lab Miscellaneous-LCon 10-03 Test Code [id number] Invalid Interpretation Code [facility] Comment on above: Performed By: #### 1 [id number] ####[address] [address] Test Name MDS FISH Invalid Interpretation Code [facility] Comment on above: Performed By: #### 1 [id number] ####[address] [address] Oncology Progress Noteon Oncology Progress Note Diagnoses Macrocytosis (D75.89: Other specified diseases of blood and blood-forming organs) Ordered: Immunoglobs. A/E/G/M Lab Miscellaneous- ONC Office Visit 30 Min Orders: cyanocobalamin, 1,000 mcg, IntraMuscular, q2wk, # 30 mL, Refills(s) 5, Pharmacy: [facility]/pharmacy #[id number], 172, cm, 05/31/23 15:29:00 EDT, Height/Length Dosing, 102.6, kg, 05/31/23 15:29:00 EDT, Weight Dosing cyanocobalamin, 1,000 mcg, IntraMuscular, q2wk, # 30 mL, Refills(s) 5, Pharmacy: [facility]/pharmacy #3471, 172, cm, 10/03/23 15:12:00 EST, Height/Length Dosing, 102.3, kg, 10/03/23 15:12:00 EST, Weight Dosing Misc Prescription, IM 3ml syringes/needles 25gauge, 1 , See Instructions, 1 kit(s), 5, IM syringes/needles for B12 injections every 2 weeks, [facility]/pharmacy #3471, Supply, 172, cm, 05/31/23 15:29:00 EDT, Height/Length Dosing, 102.6, kg, 05/31/23 15:29:00 EDT, Weight Dosing Misc Prescription, IM 3ml syringes/needles 25gauge, 1 , See Instructions, 1 kit(s), 5, IM syringes/needles for B12 injections every 2 weeks, [facility]/pharmacy #3471, Supply, 172, cm, 10/03/23 15:12:00 EST, Height/Length Dosing, 102.3, kg, 10/03/23 15:12:00 EST, Weight Dosing Chief Complaint Anemia Per patient no questions or concerns. Oncological History/ROS/PE/Assessment and Plan Chief Complaint Follow-up for macrocytosis history and lab results. History of Present Illness Mr. Schumacher is a 68 year old male former smoker with a history of prostate cancer, HTN, diabetes, stage 3b CKD, macrocytic anemia, epididymitis. Surgical history includes prostatectomy and tonsillectomy. No family history of cancer. He is referred by Dr. Byrd for his macrocytic anemia. Most recent labs reveal hgb 13.4 with elevated MCV, MCH and RDW. Wbc and platelets WNL. Creatinine is elevated at 1.9, calcium ok. Total protein 8, albumin WNL. Prostate cancer. Had surgery and no recurrence since then, followed up for 10 years in [place] and no longer is followed, was about 17 years ago now. Initial consult exam 02/03/23 energy is good, he feels great. Denies sob, chest pain, fevers, chills, sweats, n/v/d/c states he has always been told he has large red cells for as long as he can remember has no pain anywhere. does not drink 03/22/2023 visit: Patient is here for the lab results. He is here for follow-up for his chronic macrocytosis which she was told he has had for like over 20 to 30 years. He denied drinking alcohol more than once a month. He denied being ever alcoholic or has any history of alcohol abuse. He is not on any seizure medications. Current medication which I reviewed with cause macrocytosis. Patient denied ever having history of jaundice. No history of autoimmune diseases to his knowledge that lupus or Raynaud's phenomenon or rheumatoid arthritis and no hematuria or red urine at night or in cold weather. Patient denies any major bruises otherwise. He is not aware of having any family history with hereditary spherocytosis. His review of 12 systems was reviewed and are negative. 05/31/23: he is here for 9 weeks follow-up for his macrocytosis, and B12 deficiency. He also has a history of elevated free light chains which need to be followed in the next 2 to 3 months. He denies any new complaints. He denies any B symptoms. He has been getting the B12 IM injections in his deltoid muscles weekly for the last 8 weeks. He is here for the results of the labs to further outline the plan of care for his B12 deficiency and macrocytosis. He denies any jaundice and denies any abdominal pain or nausea or vomiting or fevers. He denies any bone pain as well. His labs on 05/23/2023 revealed normal haptoglobin of 121. B12 improved to 1120 from 236. His direct Lazaro test was negative also. His LDH was normal 157 in February 2023. Labs from 05/23/2023 revealed hemoglobin stable 13.2 MCV improved from 116 to 105. WBC 9.0 and platelet count of 360,000. 10/03/2023 He is here for 4 months follow-up for his macrocytosis with B12 deficiency. He is taking his B12 injection every other week and is feeling fine. He denies any jaundice or hemolysis symptoms of chills or rigors or fevers and denied any shortness of breath or chest pain or dizziness. The he denied any need for blood transfusion and here he is here for the lab results which revealed normal B12 level normal WBC of 6.9 hemoglobin 12.8 MCV of 106 RDW 16.7 platelet of 336 with normal B12 991, folate 12.4, ferritin 225 and normal M spike or no M spike observed. Immunoglobulins levels are within normal and the free kappa light chains are mildly elevated 71 and 45 with a ratio was normal 1.58. And total bilirubin is actually also normal. Review of Systems Constitutional: Negative. Eye: Negative. Ear/Nose/Mouth/Throat: Negative. Respiratory: Negative. Cardiovascular: Negative. Gastrointestinal: Negative. Genitourinary: Negative. Hematology/Lymphatics: Negative. Endocrine: Negative. Immunologic: Negative. Musculoskeletal: Negative. Integumentary: Negative. Neurologic: Negative. (more content not included)... Normal [facility] Reference Laboratory Testing Ordered By: Susana Lucas on 10-03-2023 Test Code 917734 1 Invalid Interpretation [place] [facility] [place] Name SHERIE FISH Invalid Interpretation Code [facility] [place] [facility] Free K+L Lt Chains,Qn,Son Immunoglobulin light chains.kappa.free (S) [Mass/Vol] 71.1 mg/L High 3.3-19.4 [facility] Comment on above: Performed By: #### 2 999036, 13319607, 30472233, 495508522, 20722180, 9276246, 58932548, 8560304, 5423745, 6419193, 3458398, 2139055, 0743050, 8225372, 6671115 ####[facility] [address] [place] [address] Immunoglobulin light chains.kappa.free/I mmunoglobulin light chains.lambda.free (S) [Mass ratio] 1.58 Invalid Interpretation Code 0.26-1.65 [facility] Comment on above: Result Comment: Perf ormed at: [facility] [address] [id number] PhD Celestine Bone Performed By: #### 2 783096, 21627905, 90216630, 628261734, 90614082, 5631844, 88428902, 8925280, 9340240, 8842788, 9675744, 5221290, 6659583, 3412196, 2998987 ####[facility] [address] [place] [address] Immunoglobulin light chains.lambda.free [Mass/Vol] 45.0 mg/L High 5.7-26.3 [facility] Comment on above: Performed By: #### 2 223391, 27133749, 97641282, 521376643, 24672054, 0184806, 26120920, 1856314, 4125355, 2106308, 7071436, 5172026, 2350421, 6036114, 0815837 ####[facility] [address] [place] [address] REBECCA and PE, Serumon 09-28-19 24 Albumin [Mass/Vol] 3.9 g/dL Invalid Interpretation Code 2.9-4.4 [facility] Comment on above: Performed By: #### 2 953448, 78394309, 00448249, 250652997, 52330273, 7876346, 43924712, 9346301, 5952997, 0155175, 4050982, 5154395, 7252098, 6433978, 7980339 ####[address] [place] [address] Albumin/Globulin [Mass ratio] 1.3 {ratio} Invalid Interpretation Code 0.7-1.7 [facility] Comment on above: Performed By: #### 2 954125, 52915781, 63672359, 898063803, 10857842, 1235614, 74216054, 2464852, 3440524, 6005842, 2310692, 0379133, 8542805, 8592352, 5980247 ####[address] [place] [address] Alpha 1 globulin Elph [Mass/Vol] 0.2 g/dL Invalid Interpretation Code 0.0-0.4 [facility] Comment on above: Performed By: #### 2 770358, 33427198, 36646732, 126802611, 22578969, 4131869, 11777274, 9398643, 4703520, 0936341, 7598394, 0988058, 9966196, 8462456, 7348281 ####[address] [place] [address] Alpha 2 globulin Elph [Mass/Vol] 0.7 g/dL Invalid Interpretation Code 0.4-1.0 [facility] Comment on above: Performed By: #### 2 274968, 63658086, 11069009, 634947844, 54079019, 4055080, 74455219, 4907701, 4415115, 8191157, 2567874, 1304238, 3198468, 0222934, 6802438 ####[facility] [address] [place] [address] Beta globulin Elph [Mass/Vol] 1.0 g/dL Invalid Interpretation Code 0.7-1.3 [facility] Comment on above: Performed By: #### 2 566481, 31511099, 50382689, 242165587, 28769255, 9648225, 31169193, 3461181, 1047542, 2769870, 2619431, 4504510, 7642146, 9788973, 0714715 ####[address] [place] [address] Gamma globulin Elph [Mass/Vol] 1.1 g/dL Invalid Interpretation Code 0.4-1.8 [facility] Comment on above: Performed By: #### 2 311420, 27410192, 45559196, 886891870, 01167599, 4004760, 15030854, 7071145, 9860724, 8038089, 3101347, 7903790, 3807299, 8125641, 8219081 ####[address] [place] [address] Globulin (S) [Mass/Vol] 3.1 g/dL Invalid Interpretation Code 2.2-3.9 [facility] Comment on above: Performed By: #### 2 514385, 79051446, 62401408, 762692695, 68173136, 1658200, 85252104, 6165590, 4884416, 7567519, 0588116, 5725145, 6959151, 7284255, 5498117 ####[address] [place] [address] IgA [Mass/Vol] 253 mg/dL Invalid Interpretation Code 17-685 [facility] Comment on above: Performed By: #### 2 501532, 23277268, 04015294, 882598891, 40677436, 9006405, 45502351, 2448872, 7027622, 1720349, 8261194, 2468562, 4825296, 6286150, 1911462 ####[facility] [address] [place] [address] IgG [Mass/Vol] 1185 mg/dL Invalid Interpretation Code 698-3182 [facility] Comment on above: Performed By: #### 2 948026, 92591802, 58957290, 813866275, 71832023, 8825048, 32214631, 1135050, 3595583, 9168770, 0799243, 8137685, 5822646, 3860952, 6815521 ####[facility] [address] [place] [address] IgM [Mass/Vol] 95 mg/dL Invalid Interpretation Code 75-736 [facility] Comment on above: Performed By: #### 2 442936, 63066117, 27554682, 977346962, 57336210, 4653466, 57053313, 8677162, 7415664, 1562908, 9017575, 1276423, 2999885, 0345797, 1149633 ####[facility] [address] [place] [address] Interpretation IEP [Interp] Comment Invalid Interpretation Code [facility] Comment on above: Result Comment: No m onoclonality detected. Performed By: #### 2 054339, 16572620, 33927858, 190744255, 96871284, 0824872, 74253410, 6971450, 2773758, 7918194, 9813837, 2191559, 1393851, 3379094, 5226425 ####[facility] [address] [place] [address] Laboratory comment Christopher (Report) Comment Invalid Interpretation Code [facility] Comment on above: Result Comment: Prot ein electrophoresis scan will follow via computer, mail, or driving instructor delivery. Performed at: [facility] [id number] [place], [place] [id number] PhD Celestine Bone Performed By: #### 2 915305, 26701190, 32691757, 870405756, 14588021, 9838628, 25744206, 0549653, 5735263, 9554079, 2269884, 2233884, 1789585, 9423200, 3203787 ####[facility] [address] [place] [address] Protein [Mass/Vol] 7.0 g/dL Invalid Interpretation Code 6.0-8.5 [facility] Comment on above: Performed By: #### 2 323488, 99749967, 46940468, 502465991, 93031972, 4516594, 26674424, 8564040, 7045766, 9662776, 6148414, 8447053, 8759022, 0599415, 5726073 ####[facility] [address] [place] [address] Protein.monoclonal Elph [Mass/Vol] Not Observed Invalid Interpretation Code Not Observed [facility] Comment on above: Performed By: #### 2 867147, 36091573, 06668688, 238295026, 96408665, 0011598, 84033453, 5350583, 4102171, 6227606, 5658505, 6776014, 6083591, 0856645, 1646632 ####[facility] [address] [place] [address] Immunoglobs. A/E/G/Mon 09-28 IgE Qn 96 International_Unit/mL Invalid Interpretation Code 6495 [facility] Comment on above: Result Comment: Perf ormed at: [facility] [address] [id number] MD Modesto Robertson Performed By: #### 2 185110, 16623457, 25527551, 435186444, 46640196, 5249917, 06480145, 5199973, 6144735, 7482353, 5099248, 7648314, 9755530, 4749164, 9320434 ####[facility] [address] [place] [address] Path. Reviewon 09-26-2023 Path Review No increase of reticulocytes, schistocytes or hypersegmented granulocytes. Invalid Interpretation Code [facility] Comment on above: Order Comment: Order added by Discern Expert Performed By: #### 2 716523, 62028710, 83465600, 513683079, 01602599, 5117374, 77461332, 8691996, 0549947, 3105248, 1271148, 5350081, 8474554, 0624725, 2174824 ####[facility] [address] [place] [address] Path. Review No increase of reticulocytes, schistocytes or hypersegmented granulocytes. CPT 10963 Invalid Interpretation Code [facility] Comment on above: Other Comment: Order added by Discern Expert CBC w/ Auto Diffon Anisocytosis Ql (Bld) PRESENT Invalid Interpretation Code [facility] Comment on above: Performed By: #### 2 384882, 92297319, 00944129, 070035835, 76592874, 4330004, 09944500, 0913916, 0293135, 0571603, 2254825, 0254856, 7311707, 5300946, 8073732 ####[facility] [address] [place] [address] Band form neutrophils/100 WBC (Bld) 3 % Normal 0-6 [facility] Comment on above: Performed By: #### 2 078700, 73690540, 40702521, 078152320, 39317745, 8762461, 75048369, 5893699, 7023973, 9131754, 0535848, 5231553, 6549646, 4439224, 6325731 ####[address] [place] [address] Basophils/100 WBC (Bld) 1 % Normal 0-1 [facility] Comment on above: Performed By: #### 2 554433, 02279994, 12966719, 274944190, 55799549, 9685839, 64125791, 8836194, 0454093, 6151090, 7483899, 3209830, 8583912, 2606421, 0561025 ####[facility] [address] [place] [address] Eosinophils/100 WBC (Bld) 1 % Normal 0-5 [facility] Comment on above: Performed By: #### 2 049412, 33729440, 53465040, 846167510, 77851683, 6807430, 75662047, 1445942, 1210350, 9257302, 9914504, 4158216, 4728967, 5521816, 7023151 ####[facility] [address] [place] [address] Lymphocytes/100 WBC (Bld) 18 % Normal 14-48 [facility] Comment on above: Performed By: #### 2 976794, 52425129, 77796789, 527208435, 77353611, 5408625, 23887687, 9328677, 2587924, 1581357, 7088700, 0926724, 6908035, 2979523, 9205375 ####[address] [place] [address] Macrocyte PRESENT Invalid Interpretation Code [facility] Comment on above: Performed By: #### 2 807617, 38580344, 46859410, 304122734, 41353738, 3560690, 78716356, 5119247, 1335245, 7257449, 5081045, 4545753, 3938069, 4971551, 8362690 ####[facility] [address] [place] [address] Monocytes/100 WBC (Bld) 8 % Normal 1-11 [facility] Comment on above: Performed By: #### 2 672720, 17320056, 47465054, 057311551, 95804251, 5697942, 56739220, 4219603, 2785418, 8844672, 6267129, 1183155, 0768613, 7848487, 1176309 ####[facility] [address] [place] [address] RBC morphology finding Nom (Bld) SEE MORPHOLOGY Invalid Interpretation Code [facility] Comment on above: Performed By: #### 2 548233, 04730461, 92807604, 887658042, 40697140, 6936627, 93270432, 0843804, 7013745, 9227721, 1888766, 2143834, 8373179, 1355265, 4796521 ####[facility] [address] [place] [address] Segs Man 69 % Normal 50-70 [facility] Comment on above: Performed By: #### 2 347114, 53390124, 66812761, 586874711, 45732713, 9422592, 99968525, 3459204, 9017534, 8312114, 2336041, 7812040, 9187824, 7016071, 6203767 ####[facility] [address] [place] [address] Basophil Absolute 0.1 E9/L Normal 0.0-0.2 [facility] Comment on above: Performed By: #### 2 499173, 08693431, 39392349, 302766828, 29504258, 7938533, 87950119, 0416027, 6979653, 3689714, 6800361, 7353051, 2870605, 0856157, 7256872 ####[facility] [address] [place] [address] Basophils/100 WBC (Bld) 0.9 % Normal 0.0-2.0 [facility] Comment on above: Performed By: #### 2 400177, 23899016, 85972462, 160264811, 01667952, 4618442, 42372773, 6737959, 7922457, 9581656, 6810797, 0536879, 0559733, 5990106, 5276090 ####[facility] [address] [place] [address] Eos Absolute 0.2 E9/L Normal 0.0-0.5 [facility] Comment on above: Performed By: #### 2 721920, 71046477, 31733934, 970329072, 66001469, 8183380, 74668357, 3434227, 5089299, 5860486, 4475628, 5062467, 6852492, 1772868, 1507834 ####[facility] [address] [place] [address] Eosinophils/100 WBC (Bld) 3.2 % Normal 0.0-8.0 [facility] Comment on above: Performed By: #### 2 471568, 77548212, 14695414, 032518122, 80525706, 4994289, 77521441, 1718063, 7800971, 3564421, 2096574, 1291966, 8088323, 2206613, 7705126 ####[facility] [address] [place] [address] Erythrocyte distribution width (RBC) [Ratio] 16.7 % High 10.9-14.2 [facility] Comment on above: Performed By: #### 2 329613, 28579477, 04060466, 176339519, 24360533, 4298782, 51598641, 3774414, 9605852, 5339569, 8813776, 6157111, 1506203, 4937659, 9457043 ####[facility] [address] [place] [address] Hematocrit (Bld) [Volume fraction] 39.0 % Normal 37.7-49.0 [facility] Comment on above: Performed By: #### 2 564992, 11091585, 98473464, 404182497, 12555332, 5074927, 51377468, 6047361, 3113669, 0769332, 8972499, 6865617, 3731051, 0203875, 5718932 ####[facility] [address] [place] [address] Hemoglobin (Bld) [Mass/Vol] 12.8 g/dL Low 13.5-17.5 [facility] Comment on above: Performed By: #### 2 836666, 28137791, 31760868, 829638323, 68242195, 2140347, 18445413, 5547980, 0913312, 1990409, 1249226, 0510073, 8614827, 1247961, 1779661 ####[facility] [address] [place] [address] Lymph Absolute 1.0 E9/L Normal 1.0-4.0 [facility] Comment on above: Performed By: #### 2 663135, 08032129, 84656494, 898347742, 23135672, 1750140, 50564735, 6460875, 2251956, 5679964, 2527778, 0084905, 3132186, 2760881, 0623684 ####[facility] [address] [place] [address] Lymphocytes/100 WBC (Bld) 14.5 % Normal 14.0-50.0 [facility] Comment on above: Performed By: #### 2 418340, 88442332, 19406676, 642160986, 20150467, 8522886, 86749518, 3785602, 0755676, 2699243, 3074712, 0339427, 6184378, 8303691, 5581040 ####[facility] [address] [place] [address] MCH (RBC) [Entitic mass] 35.2 pg High 27.0-34.0 [facility] Comment on above: Performed By: #### 2 719685, 31816286, 90022179, 809086621, 56881952, 2087623, 47616616, 2003067, 9084989, 8022999, 8168048, 4799144, 6127601, 4802170, 2463868 ####[facility] [address] [place] [address] MCHC (RBC) [Mass/Vol] 33.0 g/dL Normal 31.4-36.0 [facility] Comment on above: Performed By: #### 2 299158, 17722307, 80040170, 966466648, 93483150, 4900123, 95021489, 9800046, 7187066, 0130081, 9623581, 7613285, 6999231, 1365664, 0257459 ####[facility] [address] [place] [address] MCV (RBC) [Entitic vol] 106.9 fL High 80.0-100.0 [facility] Comment on above: Performed By: #### 2 802180, 58888883, 33444740, 021591796, 55676221, 2482244, 11996423, 2033585, 8715956, 0639554, 5513912, 1154446, 0647577, 5031912, 6288536 ####[facility] [address] [place] [address] [place]ue Absolute 0.6 E9/L Normal 0.2-1.0 [facility] Comment on above: Performed By: #### 2 514974, 43269598, 24172626, 826709942, 80261740, 0186952, 03363505, 6207083, 1163480, 3631542, 4303013, 1494654, 6195529, 2672516, 9108979 ####[facility] [address] [place] [address] Monocytes/100 WBC (Bld) 8.8 % Normal 4.0-14.0 [facility] Comment on above: Performed By: #### 2 901421, 69888352, 74056479, 094207387, 73594990, 7681928, 65784067, 5980826, 4547354, 2378146, 2370954, 6790175, 8912406, 4472456, 1466523 ####[address] [place] [address] Neutro Absolute 5.0 E9/L Normal 2.0-7.5 [facility] Comment on above: Performed By: #### 2 587744, 58237015, 32538618, 905485087, 71791658, 0817153, 77327115, 3757516, 4408137, 9027728, 6726810, 3356927, 9423852, 8765589, 6685242 ####[address] [address] Neutro Auto 72.6 % Normal 36.0-75.0 [facility] Comment on above: Performed By: #### 2 944797, 37345144, 67826665, 893753419, 65612438, 4508225, 48821840, 5049482, 0353021, 6801223, 8426082, 2427583, 3510532, 7593074, 1921352 ####[address] [address] Platelet 336.0 E9/L Normal 150.0-500.0 [facility] Comment on above: Performed By: #### 2 915544, 64962816, 41033414, 969293555, 65090705, 1579031, 33005376, 1443918, 3033446, 4110757, 7472661, 8943672, 0746556, 4335002, 9693083 ####[address] [place] [address] Platelet mean volume (Bld) [Entitic vol] 7.5 fL Normal 6.4-10.8 [facility] Comment on above: Performed By: #### 2 657530, 87993017, 92916765, 090953369, 17704462, 9741759, 86564978, 8516354, 0591846, 1872562, 0672532, 6456176, 5497966, 4096421, 0768055 ####[facility] [address] [place] [address] RBC 3.6 E12/L Low 4.3-5.9 [facility] Comment on above: Performed By: #### 2 247161, 80765495, 51292500, 038262043, 67675264, 6742094, 05435469, 1093327, 5653132, 2711622, 4785888, 1885367, 2072786, 2533488, 4174073 ####[facility] [address] [place] [address] WBC 6.9 E9/L Normal 4.0-11.0 [facility] Comment on above: Performed By: #### 2 185065, 67117216, 74037645, 929464230, 53274157, 4232489, 98232801, 0137911, 4396593, 9202805, 4997119, 2912498, 9898221, 6471357, 4021250 ####[facility] [address] [place] [address] CHEMISTRYOrdered By: SYSTEM SYSTEM on 09-24-2023 Albumin [Mass/Vol] 4.3 g/dL Normal 3.3 - 5.0 gm/dL [facility] Albumin/Globulin [Mass ratio] 1.6 {ratio} Normal 1.1 - 2.2 [facility] Alk Phos 54 [iU]/d Normal 21 - 98 Int._Unit/L [facility] ALT 17 [iU]/d Normal 6 - 46 Int._Unit/L [facility] Anion gap [Moles/Vol] 12 mmol/L Normal 6 - 16 mEq/L [facility] AST 13 [iU]/d Normal 5 - 43 Int._Unit/L [facility] Bili Total 0.4 mg/dL Normal 0.0 - 1.1 mg/dL [facility] Calcium [Mass/Vol] 9.5 mg/dL Normal 8.9 - 11. 1 mg/dL [facility] Chloride [Moles/Vol] 111 mmol/L Normal 101 - 111 mmol/L [facility] CO2 [Moles/Vol] 26 mmol/L Normal 21 - 31 mmol/L [facility] Cobalamin (Vitamin B12) [Mass/Vol] 991 pg/mL Normal 50 - 1500 pg/mL [facility] Creatinine [Mass/Vol] 1.9 mg/dL High 0.5 - 1.3 mg/dL [facility] eGFR 38 mL/min/1.73 m2 Low >=59mL/min / 1.73 m2 [facility] Ferritin Lvl 225 ng/mL Normal 24 - 336 ng/mL [facility] Folate Lvl 12.4 ng/mL Normal >=6.7ng/mL [facility] Globulin (S) [Mass/Vol] 2.7 g/dL Normal 1.4 - 4.0 gm/dL [facility] Glucose [Mass/Vol] 121 mg/dL Normal 55 - 199 mg/dL [facility] Iron [Mass/Vol] 104 ug/dL Normal 35 - 153 mcg/dL [facility] Iron Sat 32 % Normal 20 - 50 % [facility] LDH 142 [iU]/d Normal 93 - 218 Int._Unit/L [facility] Potassium [Moles/Vol] 4.9 mmol/L Normal 3.5 - 5.3 mmol/L [facility] Protein [Mass/Vol] 7.0 g/dL Normal 6.0 - 7.8 gm/dL [facility] Sodium [Moles/Vol] 144 mmol/L Normal 135 - 145 mmol/L [facility] TIBC 321 ug/dL Normal 250 - 400 mcg/dL [facility] Transferrin [Mass/Vol] 229 mg/dL Normal 200 - 370 mg/dL [facility] CHEMISTRYOrdered By: Staci Youngblood on 09-24-2023 Urea nitrogen [Mass/Vol] 40 mg/dL High 5 - 21 mg/dL [facility] Urea nitrogen/Creatinine [Mass ratio] 21 mg/mg High 10 - 20 [facility] CMPon 09-24-2023 BUN/Creat Ratio 21 No Units High 10-20 [facility] Comment on above: Performed By: #### 2 477140, 56115319, 49961543, 973884325, 35578150, 6996479, 82428164, 0747282, 9782599, 0165138, 8551316, 5388884, 6454186, 0038946, 7294202 ####[facility] [address] [place] [address] Urea nitrogen [Mass/Vol] 40 mg/dL High 5-21 [facility] Comment on above: Performed By: #### 2 653709, 46778504, 33034889, 251796453, 94465662, 8821932, 28243352, 6955689, 8543699, 8335693, 9710406, 3524636, 2856616, 0223902, 6913093 ####[facility] [address] [place] [address] Albumin [Mass/Vol] 4.3 g/dL Normal 3.3-5.0 [facility] Comment on above: Performed By: #### 2 334598, 24954114, 52587765, 499433240, 74115833, 3172483, 45294014, 4915253, 6382904, 9326234, 7685345, 6205886, 3590411, 2585976, 0666602 ####[facility] [address] [place] [address] Albumin/Globulin [Mass ratio] 1.6 {ratio} Normal 1.1-2.2 [facility] Comment on above: Performed By: #### 2 527012, 51076487, 39762737, 908416662, 70894100, 5305381, 43278419, 5983646, 3977792, 6822725, 4795241, 7809112, 4079814, 3888629, 8205405 ####[facility] [address] [place] [address] Alk Phos 54 Int._Unit/L Normal 21-98 [facility] Comment on above: Performed By: #### 2 254159, 50827709, 81578441, 558198490, 75008314, 4339481, 12168390, 5879658, 4075257, 3353636, 7218978, 0834813, 7816650, 1175812, 2490090 ####[facility] [address] [place] [address] ALT 17 Int._Unit/L Normal 6-46 [facility] Comment on above: Performed By: #### 2 170016, 05354930, 32115453, 977572128, 48104744, 8080395, 28452268, 9481686, 6965002, 7307863, 8987299, 3984977, 6977223, 7574382, 7729609 ####[facility] [address] [place] [address] Anion gap [Moles/Vol] 12 mmol/L Normal 6-16 [facility] Comment on above: Performed By: #### 2 544994, 80194367, 48721422, 954207442, 23323152, 9940711, 61086067, 7473300, 7100069, 4512339, 8097326, 6597757, 9925854, 7782027, 6737911 ####[facility] [address] [place] [address] AST 13 Int._Unit/L Normal 5-43 [facility] Comment on above: Performed By: #### 2 459200, 99439702, 48095748, 084298944, 01075924, 1531863, 28137553, 0972568, 4744052, 8253925, 1369140, 4355943, 6513409, 3637966, 0257905 ####[facility] [address] [place] [address] Bili Total 0.4 mg/dL Normal 0.0-1.1 [facility] Comment on above: Performed By: #### 2 805558, 83040858, 90353893, 027850971, 41198418, 8215340, 97545251, 6893952, 3023692, 7787345, 0575694, 5042849, 9408192, 3830612, 5936566 ####[facility] [address] [place] [address] Calcium [Mass/Vol] 9.5 mg/dL Normal 8.9-11.1 [facility] Comment on above: Performed By: #### 2 426692, 73667333, 79665495, 377981984, 39402039, 4514199, 60382853, 6087552, 9274185, 8994655, 0834817, 0813854, 6738035, 9516789, 4642845 ####[facility] [address] [place] [address] Chloride [Moles/Vol] 111 mmol/L Normal 101-111 [facility] Comment on above: Performed By: #### 2 224638, 87062420, 10662462, 497626589, 61871646, 3987183, 75692139, 1587834, 4740357, 4377379, 5083245, 8687297, 6270595, 1983236, 4219916 ####[facility] [address] [place] [address] CO2 [Moles/Vol] 26 mmol/L Normal 21-31 [facility] Comment on above: Performed By: #### 2 393604, 40641868, 49675278, 120518516, 95490473, 7710935, 80629157, 7715354, 8314419, 4474799, 3522970, 6927060, 8830958, 0085100, 4132788 ####[facility] [address] [place] [address] Creatinine [Mass/Vol] 1.9 mg/dL High 0.5-1.3 [facility] Comment on above: Performed By: #### 2 167274, 01111501, 56190465, 832237942, 79550110, 3654876, 19793677, 4523412, 3871430, 8168294, 2676660, 0228810, 7677720, 4637029, 7241632 ####[facility] [address] [place] [address] Globulin (S) [Mass/Vol] 2.7 g/dL Normal 1.4-4.0 [facility] Comment on above: Performed By: #### 2 546626, 11473918, 62828417, 390559432, 46006920, 2106331, 38620183, 5021660, 0730994, 0828223, 3760900, 7063135, 2850100, 0489423, 6952155 ####[facility] [address] [place] [address] Glucose [Mass/Vol] 121 mg/dL Normal 55-199 [facility] Comment on above: Performed By: #### 2 733775, 42912319, 17126666, [id number], 93821332, 9237326, 01392655, 1100882, 8207914, 4893229, 4518196, 7388065, 2092835, 8558907, 0577452 ####[facility] [address] [place] [address] Potassium [Moles/Vol] 4.9 mmol/L Normal 3.5-5.3 [facility] Comment on above: Performed By: #### 2 341431, 31302623, 07871662, 939314773, 75170471, 9356672, 60547458, 3222431, 1968966, 6862684, 8252455, 1577233, 6275933, 5322528, 2397821 ####[facility] [address] [place] [address] Protein [Mass/Vol] 7.0 g/dL Normal 6.0-7.8 [facility] Comment on above: Performed By: #### 2 473307, 99442201, 75514826, 450646791, 18234683, 9795256, 08156156, 8167091, 8012044, 8664703, 3016947, 7822147, 3514185, 9618867, 2596128 ####[facility] [address] [place] [address] Sodium [Moles/Vol] 144 mmol/L Normal 135-145 [facility] Comment on above: Performed By: #### 2 051657, 46473780, 22154561, 827664638, 50738902, 9446123, 03979331, 6560880, 0452336, 5173960, 3792420, 5123633, 7785180, 2785406, 5080564 ####[facility] [address] [place] [address] Consent for Treatmenton 08-30 Consent for Treatment [id number] Normal [facility] Ferritinon 09-24-2023 Ferritin Lvl 225 ng/mL Normal 24-336 [facility] Comment on above: Performed By: #### 2 997438, 61873062, 71520524, 947888663, 09300204, 5963940, 14986064, 3911457, 9409463, 7448381, 3770610, 7784129, 3741643, 8256690, 0989227 ####[facility] [address] [place] [address] Folateon 09-24-2023 Folate Lvl 12.4 ng/mL Normal >=6.7 [facility] Comment on above: Performed By: #### 2 832937, 02854756, 90781247, 695337579, 84832631, 7661802, 27233855, 9547312, 9707763, 0923840, 7352838, 1243135, 1009057, 4347907, 0739802 ####[facility] [address] [place] [address] HEMATOLOGYOrdered By: SYSTEM SYSTEM on 09-24-2023 Basophil Absolute 0.1 E9/L Normal 0.0 - 0.2 E9/L Remisol Heme Basophils/100 WBC (Bld) 0.9 % Normal 0.0 - 2.0 % Remisol Heme Eos Absolute 0.2 E9/L Normal 0.0 - 0.5 E9/L Remisol Heme Eosinophils/100 WBC (Bld) 3.2 % Normal 0.0 - 8.0 % Remisol Heme Erythrocyte distribution width (RBC) [Ratio] 16.7 % High 10.9 - 14.2 % Remisol Heme Hematocrit (Bld) [Volume fraction] 39.0 % Normal 37.7 - 49.0 % Remisol Heme Hemoglobin (Bld) [Mass/Vol] 12.8 g/dL Low 13.5 - 17.5 gm/dL Remisol Heme Lymph Absolute 1.0 E9/L Normal 1.0 - 4.0 E9/L Remisol Heme Lymphocytes/100 WBC (Bld) 14.5 % Normal 14.0 - 50.0 % Remisol Heme MCH (RBC) [Entitic mass] 35.2 pg High 27.0 - 34.0 pg Remisol Heme MCHC (RBC) [Mass/Vol] 33.0 g/dL Normal 31.4 - 36.0 gm/dL Remisol Heme MCV (RBC) [Entitic vol] 106.9 fL High 80.0 - 100.0 fL Remisol Heme [place] Absolute 0.6 E9/L Normal 0.2 - 1.0 E9/L Remisol Heme Monocytes/100 WBC (Bld) 8.8 % Normal 4.0 - 14.0 % Remisol Heme Neutro Absolute 5.0 E9/L Normal 2.0 - 7.5 E9/L Remisol Heme Neutro Auto 72.6 % Normal 36.0 - 75.0 % Remisol Heme Platelet 336.0 E9/L Normal 150.0 - 500.0 E9/L Remisol Heme Platelet mean volume (Bld) [Entitic vol] 7.5 fL Normal 6.4 - 10.8 fL Remisol Heme RBC 3.6 E12/L Low 4.3 - 5.9 E12/L Remisol Heme Reticulocyte 2.5 % High 0.5 - 2.2 % Remisol Hem e WBC 6.9 E9/L Normal 4.0 - 11.0 E9/L Remisol Heme HEMATOLOGYOrdered By: Lavern Pedro on 09-24-2023 Anisocytosis Ql (Bld) PRESENT Invalid Interpretation Code Remisol Heme Band form neutrophils/100 WBC (Bld) 3 % Normal 0 - 6 % Remisol Heme Basophils/100 WBC (Bld) 1 % Normal 0 - 1 % Remisol Heme Eosinophils/100 WBC (Bld) 1 % Normal 0 - 5 % Remisol Heme Lymphocytes/100 WBC (Bld) 18 % Normal 14 - 48 % Remisol Heme Macrocyte PRESENT Invalid Interpretation Code Remisol Heme Monocytes/100 WBC (Bld) 8 % Normal 1 - 11 % Remisol Heme RBC morphology finding Nom (Bld) SEE MORPHOLOGY Invalid Interpretation Code Remisol Heme Segs Man 69 % Normal 50 - 70 % Remisol Heme Ironon 09-24-2023 Iron 104 microgram/dL Normal 35-153 [facility] Comment on above: Performed By: #### 2 997306, 43060534, 46437173, 674264409, 77786603, 9822547, 42709377, 0340679, 1621983, 9993163, 1009246, 5731247, 8711461, 5532640, 8044261 ####[facility] [address] [place] [address] Iron Saturationon 09-24-2023 Iron Sat 32 % Normal 20-50 [facility] Comment on above: Performed By: #### 2 800104, 27578427, 95947069, 088374092, 84777184, 4544716, 94819302, 0255457, 5780047, 3979765, 5851079, 2205106, 2629129, 1781231, 4113684 ####[facility] [address] [place] [address] TIBC 321 microgram/dL Normal 250-400 [facility] Comment on above: Performed By: #### 2 136127, 55697371, 89574842, 098367367, 75649309, 2599179, 44433905, 9145394, 0256035, 6425837, 3146589, 7952208, 6459915, 6790424, 0774425 ####[facility] [address] [place] [address] LDHon 09-24-2023 LDH 142 Int._Unit/L Normal 93-218 [facility] Comment on above: Performed By: #### 2 261898, 22520030, 19915728, 060442269, 04590172, 8984856, 21419773, 9632350, 0313548, 0525553, 4309294, 1482787, 1780522, 6581535, 6037995 ####[facility] [address] [place] [address] Retic Counton 09-24-2023 Reticulocyte 2.5 % High .5-2.2 [facility] Comment on above: Performed By: #### 2 280144, 09178400, 39731006, 210601960, 55191805, 2549706, 88507501, 5278401, 4306894, 7276472, 7906738, 5538943, 8872412, 6373274, 9894680 ####[facility] [address] [place] [address] Transferrinon 09-24-2023 Transferrin [Mass/Vol] 229 mg/dL Normal 200-370 [facility] Comment on above: Performed By: #### 2 621382, 15443153, 85800339, 856875984, 78452809, 6717245, 08502933, 6903927, 3074162, 1716440, 8277937, 2676277, 1739819, 6457919, 7354493 ####[facility] [address] [place] [address] Vit B12on 09-24-2023 Cobalamin (Vitamin B12) [Mass/Vol] 991 pg/mL Normal 50-1500 [facility] Comment on above: Performed By: #### 2 561944, 49424641, 54661409, 132835908, 26982688, 0690463, 44735187, 6236954, 3614717, 9715238, 8228076, 1011439, 2152990, 6115282, 4937294 ####[facility] [address] [place] [address] eGFRon 09-24-2023 eGFR 38 mL/min/1.73 m2 Low >=59 [facility] Comment on above: Order Comment: Order added by Discern Expert. Performed By: #### 2 645713, 71232024, 17057367, 060413789, 41341580, 8144626, 64298100, 7737101, 7717248, 8302418, 8499733, 5195060, 9294125, 4995469, 1358903 ####[facility] [address] [place] [address] Consent for Treatmenton Consent for Treatment [id number]:127 Normal [facility] Oncology Progress Noteon Oncology Progress Note Patient: KENYETTA SCHUMACHER I Age: 68 years Sex: Male : 1955 Associated Diagnoses: None Author: Navdeep LUNDY, Yariel Jin Chief Complaint Follow-up for macrocytosis history and lab results. History of Present Illness Mr. Schumacher is a 68 year old male former smoker with a history of prostate cancer, HTN, diabetes, stage 3b CKD, macrocytic anemia, epididymitis. Surgical history includes prostatectomy and tonsillectomy. No family history of cancer. He is referred by Dr. Byrd for his macrocytic anemia. Most recent labs reveal hgb 13.4 with elevated MCV, MCH and RDW. Wbc and platelets WNL. Creatinine is elevated at 1.9, calcium ok. Total protein 8, albumin WNL. Prostate cancer. Had surgery and no recurrence since then, followed up for 10 years in [place] and no longer is followed, was about 17 years ago now. Initial consult exam 02/03/23 energy is good, he feels great. Denies sob, chest pain, fevers, chills, sweats, n/v/d/c states he has always been told he has large red cells for as long as he can remember has no pain anywhere. does not drink 03/22/2023 visit: Patient is here for the lab results. He is here for follow-up for his chronic macrocytosis which she was told he has had for like over 20 to 30 years. He denied drinking alcohol more than once a month. He denied being ever alcoholic or has any history of alcohol abuse. He is not on any seizure medications. Current medication which I reviewed with cause macrocytosis. Patient denied ever having history of jaundice. No history of autoimmune diseases to his knowledge that lupus or Raynaud's phenomenon or rheumatoid arthritis and no hematuria or red urine at night or in cold weather. Patient denies any major bruises otherwise. He is not aware of having any family history with hereditary spherocytosis. His review of 12 systems was reviewed and are negative. 05/31/23: he is here for 9 weeks follow-up for his macrocytosis, and B12 deficiency. He also has a history of elevated free light chains which need to be followed in the next 2 to 3 months. He denies any new complaints. He denies any B symptoms. He has been getting the B12 IM injections in his deltoid muscles weekly for the last 8 weeks. He is here for the results of the labs to further outline the plan of care for his B12 deficiency and macrocytosis. He denies any jaundice and denies any abdominal pain or nausea or vomiting or fevers. He denies any bone pain as well. His labs on 05/23/2023 revealed normal haptoglobin of 121. B12 improved to 1120 from 236. His direct Lazaro test was negative also. His LDH was normal 157 in February 2023. Labs from 05/23/2023 revealed hemoglobin stable 13.2 MCV improved from 116 to 105. WBC 9.0 and platelet count of 360,000. Review of Systems Constitutional: Negative. Eye: Negative. Ear/Nose/Mouth/Throat: Negative. Respiratory: Negative. Cardiovascular: Negative. Gastrointestinal: Negative. Genitourinary: Negative. Hematology/Lymphatics: Negative. Endocrine: Negative. Immunologic: Negative. Musculoskeletal: Negative. Integumentary: Negative. Neurologic: Negative. Psychiatric: Negative. Health Status Allergies: Allergic Reactions (Selected) Severity Not Documented Amino Acid- Muscle cramps. Dextroamphetamine- Muscle cramps and unknown. Lipitor- Muscle cramps. Lisinopril- Muscle cramps. Losartan- Other: see comments. Simvastatin- Muscle cramps and unknown. Current medications: Home Medications (2) Active Ozempic 2 mg/1.5 mL (1 mg dose) subcutaneous solution 1 mg, SubCutaneous, qWeek valsartan 160 mg Tab 160 mg = 1 tab(s), Oral, Daily , No qualifying data available Problem list: All Problems Stage 3b chronic kidney disease / ICD-10-CM N18.32 / Confirmed Constipation / SNOMED CT 41005447 / Confirmed Essential hypertension / SNOMED CT 78604362 / Confirmed Macrocytic anemia / SNOMED CT 266000575 / Confirmed Malignant tumor of prostate / SNOMED CT 0833375870 / Confirmed Non-smoker / SNOMED CT 86758206 / Confirmed Diabetic nephropathy associated with type 2 diabetes mellitus / SNOMED CT 8322799701 / Confirmed Type 2 diabetes mellitus with stage 3b chronic kidney disease, without long-term current use of insulin / ICD-10-CM E11.22 / Confirmed Canceled: Annual physical exam / IMO 811086 Canceled: Epididymitis / SNOMED CT 78555378 Canceled: Epididymitis / IMO 99683 Canceled: Myositis / SNOMED CT 89187845 Canceled: Myositis of thigh / SNOMED CT 91326143 Canceled: Type 2 diabetes mellitus / SNOMED CT 293050668 Histories Past Medical History: No active or resolved past medical history items have been selected or recorded. Family History: Acute myocardial infarction Father () Mother () Procedure history: Colonoscopy (SNOMED CT 746120656) in 2019 at 64 Years. Endoscopic prostatectomy (SNOMED CT 356401171) in 2005 at 51 Years. History of tonsillectomy (SNOMED CT 6732019471) in 1962 at 8 Years (more content not included)... Normal [facility] Haptoglobinon 05-25-2023 Haptoglobin [Mass/Vol] 121 mg/dL Invalid Interpretation Code 93-779 [facility] Comment on above: Result Comment: Perf ormed at: [facility] [address] [place] [address] [id number] PhD Celestine Bone Performed By: #### 2 365729, 2986676, 4158384, 0378808, 9879665 ####[facility] [address] [place] [address] Auto Diffon 05-23-2023 Basophils/100 WBC (Bld) 0.5 % Normal 0.0-2.0 [facility] Comment on above: Order Comment: Order Added by Discern Expert. Performed By: #### 2 176854, 4766593, 6503037, 4746756, 6124207 ####[address] [place] [address] Basophils/Leukocyte s Auto (Bld) [Pure # fraction] 0.0 E9/L Normal 0.0-0.2 [facility] Comment on above: Order Comment: Order Added by Discern Expert. Performed By: #### 2 822388, 0472387, 2823253, 2556011, 7534294 ####[address] [place] [address] Eosinophils/100 WBC (Bld) 2.3 % Normal 0.0-8.0 [facility] Comment on above: Order Comment: Order Added by Jenelle Expert. Performed By: #### 2 026361, 6042319, 1645493, 1062997, 7238728 ####[address] [address] Eosinophils/Leukocy lorelei Auto (Bld) [Pure # fraction] 0.2 E9/L Normal 0.0-0.5 [facility] Comment on above: Order Comment: Order Added by Jenelle Expert. Performed By: #### 2 320566, 5941023, 0363001, 5446826, 0024448 ####[address] [address] Lymphocytes/100 WBC (Bld) 10.6 % Low 14.0-50.0 [facility] Comment on above: Order Comment: Order Added by Discern Expert. Performed By: #### 2 893548, 4825498, 3403155, 7735475, 9194117 ####[address] [address] Lymphocytes/Leukocy lorelei Auto (Bld) [Pure # fraction] 1.0 E9/L Normal 1.0-4.0 [facility] Comment on above: Order Comment: Order Added by Jenelle Expert. Performed By: #### 2 112152, 7109679, 2226643, 7004193, 1178745 ####[facility] [address] [place] [address] Monocytes/100 WBC (Bld) 6.9 % Normal 4.0-14.0 [facility] Comment on above: Order Comment: Order Added by Discern Expert. Performed By: #### 2 426974, 5197055, 5355707, 7981673, 2522343 ####[address] [place] [address] Monocytes/Leukocyte s Auto (Bld) [Pure # fraction] 0.6 E9/L Normal 0.2-1.0 [facility] Comment on above: Order Comment: Order Added by Discern Expert. Performed By: #### 2 465484, 5958612, 1567922, 2972758, 5524346 ####[address] [address] Neutrophils/100 WBC (Bld) 79.7 % High 36.0-75.0 [facility] Comment on above: Order Comment: Order Added by Discern Expert. Performed By: #### 2 036942, 3237615, 2760634, 5562283, 9790049 ####[address] [address] Neutrophils/Leukocy lorelei Auto (Bld) [Pure # fraction] 7.2 E9/L Normal 2.0-7.5 [facility] Comment on above: Order Comment: Order Added by Discern Expert. Performed By: #### 2 868838, 2726670, 7764960, 3484738, 5400117 ####[address] [place] [address] CBC w/ Auto Diffon 3 Erythrocyte distribution width (RBC) [Ratio] 16.9 % High 10.9-14.2 [facility] Comment on above: Performed By: #### 2 779391, 1597452, 1269123, 8989952, 8617900 ####[address] [address] Hematocrit (Bld) [Volume fraction] 38.5 % Normal 37.7-49.0 [facility] Comment on above: Performed By: #### 2 056770, 7994553, 0593076, 5897544, 1543480 ####[facility] [address] [place] [address] Hemoglobin (Bld) [Mass/Vol] 13.2 g/dL Low 13.5-17.5 [facility] Comment on above: Performed By: #### 2 054554, 3230790, 7047806, 2285352, 1964903 ####[facility] [address] [place] [address] MCH (RBC) [Entitic mass] 36.2 pg High 27.0-34.0 [facility] Comment on above: Performed By: #### 2 916042, 1491940, 6346258, 2887517, 0040242 ####[address] [address] MCHC (RBC) [Mass/Vol] 34.4 g/dL Normal 31.4-36.0 [facility] Comment on above: Performed By: #### 2 023452, 4589967, 2436297, 5471981, 9036518 ####[address] [address] MCV (RBC) [Entitic vol] 105.3 fL High 80.0-100.0 [facility] Comment on above: Performed By: #### 2 735029, 6367872, 1690110, 7071239, 4225256 ####[address] [address] Platelet mean volume (Bld) [Entitic vol] 7.7 fL Normal 6.4-10.8 [facility] Comment on above: Performed By: #### 2 800604, 5569843, 7343855, 5882431, 1957480 ####[address] [address] Platelets (Bld) [#/Vol] 360.0 E9/L Normal 150.0-500.0 [facility] Comment on above: Performed By: #### 2 247837, 4490889, 3811905, 6600904, 2346890 ####[address] [place] [address] RBC (Bld) [#/Vol] 3.7 E12/L Low 4.3-5.9 [facility] Comment on above: Performed By: #### 2 741065, 9937595, 0086322, 5392695, 2730222 ####[address] [address] WBC corrected for nucl RBC Auto (Bld) [#/Vol] 9.0 E9/L Normal 4.0-11.0 [facility] Comment on above: Performed By: #### 2 936316, 1776884, 3424171, 3866123, 6462821 ####[address] [address] Consent for Treatmenton 04-30 Consent for Treatment [id number]:127 Normal [facility] DATon 05-23-2023 WILTON IgG/C3d Gel Interp Negative Normal [facility] Comment on above: Performed By: #### 1 1140804 ####[address] [address] Retic Counton 05-23-2023 Reticulocytes/100 RBC (Bld) 2.0 % High 0.5-1.5 [facility] Comment on above: Performed By: #### 2 236805, 0035855, 8125373, 7356829, 4067705 ####[address] [place] [address] Vit B12on 05-23-2023 Cobalamin (Vitamin B12) [Mass/Vol] 1120 pg/mL Normal 50-1500 [facility] Comment on above: Performed By: #### 2 631669, 5250273, 0618056, 1596430, 7045228 ####[facility] [address] [place] [address] Ambulatory Visit Summaryon 0 04-11-2023 Ambulatory Visit Summary KENYETTA SCHUMACHER I :1955 Visit Date:04/11/2023 Ambulatory Visit Instructions Your Diagnosis Essential hypertension Type 2 diabetes mellitus with stage 3b chronic kidney disease, without long-term current use of insulin BMI 33.0-33.9,adult Class 1 obesity due to excess calories in adult Chronic kidney disease, stage 3b Your Care Team Attending Physician - Raul Byrd MD Primary Care Physician - Raul Byrd MD This Is Your Medications List cyanocobalamin (cyanocobalamin 1000 mcg/mL Inj) semaglutide (Ozempic 2 mg/1.5 mL (1 mg dose) subcutaneous solution) valsartan (valsartan 160 mg Tab) Procedures Performed Colonoscopy (2018), Endoscopic prostatectomy (2005), History of tonsillectomy (1962). Discharge Vitals Temperature (Oral) 36.2 ?C Heart Rate (Peripheral) 84 Respiratory Rate 16 Blood Pressure 126/80 Height 172 cm Height 68 in Weight 100 kg Weight 220 lb BMI 33.8 What to do next Scheduled Follow-Up Appointments Tuesday 3:30 PM EDT With: Where: Oncology Tuesday 1:20 PM EST With: Raul Byrd MD Where: [facility] Normal [facility] Family Medicine Office/Clini c Noteon 04-11-2023 Family Medicine Office/Clinic Note Chief Complaint 3 month follow up htn and diabetes HPI Staff Patient presents for one month follow up dm and htn Do you have any of the following symptoms? Foot Exam: UTD Eye Exam: about year and a half ago, due Last A1C: Hgb A1C %: 5.9 % (09/09/22 16:18:00) Statin: none Patient is here for follow up on hypertension. How often are you checking your blood pressure? every day_ What are your average readings? 128/72 _ Yearly BMP: 03/08/23 questions/concerns: one month of ozempic left He takes a daily multivitamin and mirilax both OTC can he get them as prescriptions for insurance purposes History of Present Illness - Here for follow up. - Doing well - Loosing weight - BS are well controlled. - Continues to feel amazing. Review of Systems PHQ Score Initial Depression Screen Score: 0 Physical Exam Vitals & Measurements T: 36.2 ?C(Oral) HR: 84(Peripheral) RR: 16 BP: 126/80 SpO2: 97% HT: 68 in HT: 172 cm WT: 100 kg WT: 220 lb BMI: 33.8 General: alert, no acute distress ENMT: oral mucosa moist, Cardiovascular: regular rate and rhythm, normal peripheral perfusion Respiratory: Lungs CTA, respirations non labored Extremities: no deformity, no trauma Neurological: oriented x 4, LOC appropriate for age, CN II-XII intact, motor strength equal & normal bilaterally, speech normal Abdomen: Soft, Nontender, Non-distended, + BS Assessment/Plan 1. Essential hypertension (I10: Essential (primary) hypertension) - At goal. No issues. - Will refill when needed. 2. Type 2 diabetes mellitus with stage 3b chronic kidney disease, without long-term current use of insulin (E11.22: Type 2 diabetes mellitus with diabetic chronic kidney disease) - Well controlled. Will refill. 3. BMI 33.0-33.9,adult (Z68.33: Body mass index [BMI] 33.0-33.9, adult) - BMI education given 4. Class 1 obesity due to excess calories in adult (E66.09: Other obesity due to excess calories) - As above 5. Macrocytic anemia (D53.9: Nutritional anemia, unspecified) - Continue seeing Hematology 6. Chronic kidney disease, stage 3b (N18.32: Chronic kidney disease, stage 3b) - Will continue to monitor. 7. Constipation (K59.00: Constipation, unspecified) - Please increase hydration and fiber. - If no improvement, we will send in Miralax. Orders: semaglutide, 1 mg, SubCutaneous, qWeek, 3 EA, Refill(s) 3, [id number], 172, cm, 04/11/23 14:24:00 EDT, Height/Length Dosing, 100, kg, 04/11/23 14:24:00 EDT, Weight Dosing Follow-up No qualifying data available Problem List/Past Medical History Ongoing Constipation Diabetic nephropathy associated with type 2 diabetes mellitus Essential hypertension Macrocytic anemia Malignant tumor of prostate Non-smoker Stage 3b chronic kidney disease Type 2 diabetes mellitus with stage 3b chronic kidney disease, without long-term current use of insulin Historical No qualifying data Procedure/Surgical History Colonoscopy (2018), Endoscopic prostatectomy (2005), History of tonsillectomy (1962). Medications cyanocobalamin 1000 mcg/mL Inj, 1000 mcg= 1 mL, IntraMuscular, qWeek, 1 refills Ozempic 2 mg/1.5 mL (1 mg dose) subcutaneous solution, 1 mg, SubCutaneous, qWeek, 3 refills valsartan 160 mg Tab, 160 mg= 1 tab(s), Oral, Daily, 3 refills Allergies Amino Acid (Muscle cramps) Lipitor (Muscle cramps) dextroamphetamine (Muscle cramps, Unknown) lisinopril (Muscle cramps) losartan (Other: See Comments) simvastatin (Muscle cramps, Unknown) Social History Alcohol Past, Previous treatment: None., 11/12/2021 Substance Abuse Previous treatment: None., 11/12/2021 Tobacco Former smoker, quit more than 30 days ago Tobacco Use:. Never Smokeless Tobacco Use:. Cigarettes, Started age 27.0 Years. Stopped age 54 Years. Household tobacco concerns: No., 04/11/2023 Family History Acute myocardial infarction: Mother and Father. Immunizations Vaccine Date Status influenza virus vaccine, inactivated 05/17/2022 Given influenza virus vaccine, inactivated 05/17/2022 Recorded SARS-CoV-2 (COVID-19) mRNA-1273 vaccine 10/04/2021 Recorded zoster vaccine live 06/12/2021 Recorded influenza virus vaccine, inactivated 06/01/2021 Recorded zoster vaccine live 02/05/2021 Recorded SARS-CoV-2 (COVID-19) mRNA-1273 vaccine 12/03/2020 Recorded SARS-CoV-2 (COVID-19) mRNA-1273 vaccine 11/04/2020 Recorded pneumococcal 13-valent vaccine 05/13/2020 Recorded Normal [facility] Comment on above: Result Comment: Elec tronically Signed By: Sb LUNDY, Raul Nielsen.br\Date and Time Signed: 04/11/23 14:44 EDT Consent for Treatmenton 02-27 Consent for Treatment [id number]:127 Normal [facility] Oncology Noteon 03-22-2023 Oncology Note Oncology Care Coordi nator Office Visit/Treatment Note Current Patient Status/Reason: Pt in for scheduled clinic visit with . I accompanied Dr. Sethi in room. explained lab value result, with further testing options, treatment options. Treatment Plan: B12 inj. weekly x 8, will do today and then is a nurse who will do at home. labs in 8 weeks. Follow-Up Appointment Info/Referrals: F/U in 9 weeks. Resources Offered: Pt/ voiced no questions or concerns to me when I asked. I instructed in outpt labs when and where with understanding voiced. Normal [facility] Comment on above: Result Comment: Elec tronically Signed By: Jessica PARHAM, Emiliana\.br\Date and Time Signed: 03/22/23 15:54 EDT Oncology Progress Noteon Oncology Progress Note Patient: KENYETTA SCHUMACHER I Age: 68 years Sex: Male : 1955 Associated Diagnoses: None Author: Navdeep LUNDY, Yariel Jin Chief Complaint Follow-up for macrocytosis history and lab results. History of Present Illness Mr. Schumacher is a 67 year old male former smoker with a history of prostate cancer, HTN, diabetes, stage 3b CKD, macrocytic anemia, epididymitis. Surgical history includes prostatectomy and tonsillectomy. No family history of cancer. He is referred by Dr. Byrd for his macrocytic anemia. Most recent labs reveal hgb 13.4 with elevated MCV, MCH and RDW. Wbc and platelets WNL. Creatinine is elevated at 1.9, calcium ok. Total protein 8, albumin WNL. Prostate cancer. Had surgery and no recurrence since then, followed up for 10 years in [place] and no longer is followed, was about 17 years ago now. Initial consult exam 02/03/23 energy is good, he feels great. Denies sob, chest pain, fevers, chills, sweats, n/v/d/c states he has always been told he has large red cells for as long as he can remember has no pain anywhere. does not drink 03/22/2023 visit: Patient is here for the lab results. He is here for follow-up for his chronic macrocytosis which she was told he has had for like over 20 to 30 years. He denied drinking alcohol more than once a month. He denied being ever alcoholic or has any history of alcohol abuse. He is not on any seizure medications. Current medication which I reviewed with cause macrocytosis. Patient denied ever having history of jaundice. No history of autoimmune diseases to his knowledge that lupus or Raynaud's phenomenon or rheumatoid arthritis and no hematuria or red urine at night or in cold weather. Patient denies any major bruises otherwise. He is not aware of having any family history with hereditary spherocytosis. His review of 12 systems was reviewed and are negative Review of Systems Constitutional: Negative. Eye: Negative. Ear/Nose/Mouth/Throat: Negative. Respiratory: Negative. Cardiovascular: Negative. Gastrointestinal: Negative. Genitourinary: Negative. Hematology/Lymphatics: Negative. Endocrine: Negative. Immunologic: Negative. Musculoskeletal: Negative. Integumentary: Negative. Neurologic: Negative. Psychiatric: Negative. Health Status Allergies: Allergic Reactions (Selected) Severity Not Documented Amino Acid- Muscle cramps. Dextroamphetamine- Muscle cramps and unknown. Lipitor- Muscle cramps. Lisinopril- Muscle cramps. Losartan- Other: see comments. Simvastatin- Muscle cramps and unknown. Current medications: Home Medications (2) Active Ozempic 2 mg/1.5 mL (1 mg dose) subcutaneous solution 1 mg, SubCutaneous, qWeek valsartan 160 mg Tab 160 mg = 1 tab(s), Oral, Daily , No qualifying data available Problem list: All Problems Stage 3b chronic kidney disease / ICD-10-CM N18.32 / Confirmed Epididymitis / SNOMED CT 71664232 / Confirmed Essential hypertension / SNOMED CT 97014518 / Confirmed Macrocytic anemia / SNOMED CT 090309553 / Confirmed Malignant tumor of prostate / SNOMED CT 2226888710 / Confirmed Non-smoker / SNOMED CT 31193944 / Confirmed Diabetic nephropathy associated with type 2 diabetes mellitus / SNOMED CT 4121048161 / Confirmed Type 2 diabetes mellitus with stage 3b chronic kidney disease, without long-term current use of insulin / ICD-10-CM E11.22 / Confirmed Canceled: Annual physical exam / IMO 633271 Canceled: Epididymitis / SNOMED CT 00110312 Canceled: Myositis / SNOMED CT 41122882 Canceled: Myositis of thigh / SNOMED CT 73402512 Canceled: Type 2 diabetes mellitus / SNOMED CT 552849636 Histories Past Medical History: No active or resolved past medical history items have been selected or recorded. Family History: Acute myocardial infarction Father () Mother () Procedure history: Colonoscopy (SNOMED CT 689357504) in 2019 at 64 Years. Endoscopic prostatectomy (SNOMED CT 978579529) in 2005 at 51 Years. History of tonsillectomy (SNOMED CT 6464516690) in 1962 at 8 Years. Social History Social & Psychosocial Habits Alcohol 11/12/2021 Use: Past Previous treatment: None Substance Abuse 11/12/2021 Previous treatment: None Tobacco 01/10/2023 Tobacco Use: Former smoker, quit more Smokeless tobacco use: Never Type: Cigarettes Started at age: 27.0 Years Stopped at age: 54 Years Concerns about tobacco use in household: No . Physical Examination Vital Signs 03/22/2023 15:00 EDT Temperature Oral 36.5 DegC Peripheral Pulse Rate 80 bpm Respiratory Rate 16 br/min Systolic Blood Pressure 146 mmHg HI Diastolic Blood Pressure 81 mmHg Blood Pressure Location Left arm Mean Arterial Pressure, Cuff 103 mmHg SpO2 95 % General: Alert and oriented, No acute distress. Eye: Pupils are equal, round and reactive to light, Extraocular movements are intact, Normal conjunctiva. HENT: Normocephalic, Normal hearing. Neck: Supple, (more content not included)... Normal [facility] Physician Orderon 03-22-2023 Physician Order [id number]#[id number]:127 Normal [facility] Physician Order [id number]#1.00CD:127 Normal [facility] Outside [facility] 03-21-2023 Outside Labs [id number]#1.00CD:127 Normal [facility] 03-18-2023 Outside Labs [id number]#[id number]:127 Normal [facility] Copper Lvlon 03-12-2023 Copper [Mass/Vol] 111 microgram/dL Invalid Interpretation Code 69-132 [facility] Comment on above: Result Comment: This test was developed and its performance characteristics determined by [facility]. It has not been cleared or approved by the Food and Drug Administration. Detection Limit = 5 Performed at: Lab[address] [id number] MD Modesto Robertson Performed By: #### 1 5456689, 5832590, 6107306, 2908447, 5506008, 3698352, 3352124, 5818154 ####[facility] [address] [place] [address] CHEMISTRYOrdered By: SYSTEM SYSTEM on 03-08-2023 Cobalamin (Vitamin B12) [Mass/Vol] 236 pg/mL Normal 50 - 1500 pg/mL [facility] Remisol Ferritin [Mass/Vol] 232 ng/mL Normal 24 - 336 ng/mL [facility] Remisol Folate [Mass/Vol] ng/mL Normal >=6.7ng/mL [facility] Re misol Iron [Mass/Vol] 59 ug/dL Normal 35 - 153 mcg/dL [facility] Remisol Iron binding capacity [Mass/Vol] 320 ug/dL Normal 250 - 400 mcg/dL [facility] Remisol Iron saturation [Mass fraction] 18 % Low 20 - 50 % [facility] Remisol LDH [Catalytic activity/Vol] 157 [iU]/d Normal 93 - 218 Int._Unit/L [facility] Remisol Transferrin [Mass/Vol] 229 mg/dL Normal 200 - 370 mg/dL [facility] Remisol Consent for Treatmenton 02-26 Consent for Treatment [id number]#1.00CD:127 Normal [facility] Consent for Treatment [id number]#1.00CD:127 Normal [facility] Ferritinon 03-08-2023 Ferritin [Mass/Vol] 232 ng/mL Normal 24-336 [facility] Comment on above: Result Comment: NORM ALS MEN <30 YRS 16-132 ng/mL MEN >30 YRS 8-338 ng/mL WOMEN (PREMEN) 6-104 ng/mL WOMEN (POSTMEN) 12-210 ng/mL Performed By: #### 1 3782173, 6713072, 2832589, 1834442, 0645182, 6509305, 8605680, 9296211 ####[facility] [address] [place] [address] Folateon 03-08-2023 Folate [Mass/Vol] ng/mL Normal >=6.7 [facility] Comment on above: Performed By: #### 1 7122798, 0698845, 3681011, 3100043, 9484463, 0300940, 0399684, 2280700 ####[facility] [address] [place] [address] Ironon 03-08-2023 Iron [Mass/Vol] 59 microgram/dL Normal 35-153 [facility] Comment on above: Performed By: #### 1 7190889, 6512911, 8764246, 0594792, 4158550, 2900121, 0652145, 3171554 ####[facility] [address] [place] [address] Iron Saturationon 03-08-2023 Iron binding capacity [Mass/Vol] 320 microgram/dL Normal 250-400 [facility] Comment on above: Performed By: #### 1 9809786, 1300452, 8832285, 4619565, 5656975, 3869053, 7819664, 0019049 ####[facility] [address] [place] [address] Iron saturation [Mass fraction] 18 % Low 20-50 [facility] Comment on above: Performed By: #### 1 5461124, 1751737, 7073305, 4120991, 6161728, 9539096, 5504790, 0476919 ####[facility] [address] [place] [address] LDHon 03-08-2023 LDH [Catalytic activity/Vol] 157 Int._Unit/L Normal 93-218 [facility] Comment on above: Performed By: #### 1 6678666, 1503973, 9026177, 1445684, 5766446, 9934312, 3660802, 7644817 ####[facility] [address] [place] [address] Oncology Noteon 03-08-2023 Oncology Note Patient was here for scheduled clinic visit - labs were done at [facility] but were not all resulted. This office visit was cancelled per Dr. Sethi but wanted some additional labs ordered. Patient [place] [facility] [place] for B12, Folate, Copper, Iron Studies and LDH. Patient's appointment will be rescheduled for 2 weeks to allow time for labs to be resulted. Normal [facility] Comment on above: Result Comment: Elec tronically Signed By: Ivana PARHAM, Cammie Guzman\.br\Date and Time Signed: 03/08/23 15:40 EDT Outside [facility] 03-08-2023 Outside Labs [id number]#[id number]:127 Normal [facility] Outside Labs [id number]#[id number]:127 Normal [facility] Transferrinon 03-08-2023 Transferrin [Mass/Vol] 229 mg/dL Normal 200-370 [facility] Comment on above: Performed By: #### 1 0608825, 9943610, 7146098, 8420389, 8517531, 7725338, 7071551, 9984411 ####[facility] [address] [place] [address] Vit B12on 03-08-2023 Cobalamin (Vitamin B12) [Mass/Vol] 236 pg/mL Normal 50-1500 [facility] Comment on above: Performed By: #### 1 6596971, 2318198, 9317280, 5512708, 3485733, 3740837, 5449221, 1083379 ####[facility] [address] [place] [address] Consenton 02-23-2023 Consent [id number]#[id number]:127 Normal [facility] Oncology Progress Noteon Oncology Progress Note Patient: KENYETTA SCHUMACHER I Age: 67 years Sex: Male : 1955 Associated Diagnoses: None Author: Rox LUO-, Camille Child History of Present Illness Mr. Schumacher is a 67 year old male former smoker with a history of prostate cancer, HTN, diabetes, stage 3b CKD, macrocytic anemia, epididymitis. Surgical history includes prostatectomy and tonsillectomy. No family history of cancer. He is referred by Dr. Byrd for his macrocytic anemia. Most recent labs reveal hgb 13.4 with elevated MCV, MCH and RDW. Wbc and platelets WNL. Creatinine is elevated at 1.9, calcium ok. Total protein 8, albumin WNL. Prostate cancer. Had surgery and no recurrence since then, followed up for 10 years in [place] and no longer is followed, was about 17 years ago now. Initial consult exam 02/03/23 energy is good, he feels great. Denies sob, chest pain, fevers, chills, sweats, n/v/d/c states he has always been told he has large red cells for as long as he can remember has no pain anywhere. does not drink Review of Systems Constitutional: Negative. Eye: Negative. Ear/Nose/Mouth/Throat: Negative. Respiratory: Negative. Cardiovascular: Negative. Gastrointestinal: Negative. Genitourinary: Negative. Hematology/Lymphatics: Negative. Endocrine: Negative. Immunologic: Negative. Musculoskeletal: Negative. Integumentary: Negative. Neurologic: Negative. Psychiatric: Negative. Health Status Allergies: Allergic Reactions (Selected) Severity Not Documented Amino Acid- Muscle cramps. Dextroamphetamine- Muscle cramps and unknown. Lipitor- Muscle cramps. Lisinopril- Muscle cramps. Losartan- Other: see comments. Simvastatin- Muscle cramps and unknown. Current medications: Home Medications (2) Active Ozempic 2 mg/1.5 mL (1 mg dose) subcutaneous solution 1 mg, SubCutaneous, qWeek valsartan 160 mg Tab 160 mg = 1 tab(s), Oral, Daily , No qualifying data available Problem list: All Problems Stage 3b chronic kidney disease / ICD-10-CM N18.32 / Confirmed Epididymitis / SNOMED CT 05791852 / Confirmed Essential hypertension / SNOMED CT 84544447 / Confirmed Macrocytic anemia / SNOMED CT 934414740 / Confirmed Malignant tumor of prostate / SNOMED CT 0434443156 / Confirmed Non-smoker / SNOMED CT 40590871 / Confirmed Diabetic nephropathy associated with type 2 diabetes mellitus / SNOMED CT 1221953512 / Confirmed Type 2 diabetes mellitus with stage 3b chronic kidney disease, without long-term current use of insulin / ICD-10-CM E11.22 / Confirmed Canceled: Annual physical exam / IMO 637523 Canceled: Epididymitis / SNOMED CT 21724557 Canceled: Myositis / SNOMED CT 05741245 Canceled: Myositis of thigh / SNOMED CT 94941710 Canceled: Type 2 diabetes mellitus / SNOMED CT 744570964 Histories Past Medical History: No active or resolved past medical history items have been selected or recorded. Family History: Acute myocardial infarction Father () Mother () Procedure history: Colonoscopy (955967028) in 2019 at 64 Years. Endoscopic prostatectomy (405676489) in 2005 at 51 Years. History of tonsillectomy (9905512443) in 1962 at 8 Years. Social History Social & Psychosocial Habits Alcohol 11/12/2021 Use: Past Previous treatment: None Substance Abuse 11/12/2021 Previous treatment: None Tobacco 01/10/2023 Tobacco Use: Former smoker, quit more Smokeless tobacco use: Never Type: Cigarettes Started at age: 27.0 Years Stopped at age: 54 Years Concerns about tobacco use in household: No . Physical Examination Vital Signs 02/03/2023 9:00 EDT Temperature Oral 36.5 DegC Peripheral Pulse Rate 77 bpm Respiratory Rate 16 br/min Systolic Blood Pressure 141 mmHg HI Diastolic Blood Pressure 77 mmHg Blood Pressure Location Right arm Mean Arterial Pressure, Cuff 98 mmHg SpO2 94 % Measurements from flowsheet : Measurements 02/03/2023 9:00 EDT Height/Length Measured 172 cm Height/Length Dosing 172.0 cm Weight Dosing 102.9 kg Weight Measured 102.9 kg General: Alert and oriented, No acute distress. Eye: Pupils are equal, round and reactive to light, Extraocular movements are intact, Normal conjunctiva. HENT: Normocephalic, Normal hearing. Neck: Supple, Non-tender, No jugular venous distention. Cardiovascular: Normal rate, Regular rhythm, No murmur, No edema. Gastrointestinal: Soft, Non-tender, Non-distended, Normal bowel sounds, No organomegaly. Musculoskeletal Normal range of motion. Integumentary: Warm, Dry, Schurz, No pallor, No rash. Neurologic: Alert, Oriented, Normal sensory, Cranial Nerves II-XII are grossly intact. Psychiatric: Cooperative, Appropriate mood & affect. Review / Management Results review: No qualifying data available . Impression and Plan Diagnosis Macrocytic anemia (WHU88-DX D53.9, Working, Medical). Education and Follow-up: Discharge Planning: Jared Manzano cbc, cmp, peripheral bloo (more content not included)... Normal [facility] Physician Orderon 02-04-2023 Physician Order [id number]#1.00CD:127 [facility] Consent for Treatmenton Consent for Treatment [id number]:127 [facility] Family Medicine Office/Clini c Noteon 01-12-2023 Family Medicine Office/Clinic Note Chief Complaint follow up htn and dm HPI Staff Follow up diabetes and htn Patient is here for follow up on Diabetes. How often are you checking your blood sugars? daily times per day What are your average readings? 97 Do you have any of the following symptoms? Foot Exam: year ago Eye Exam: little over a year ago Microalbumin: unsure Last A1C: 5.9 09/09/22 Last Chronic Labs: 09/09/22 Patient is here for follow up on hypertension. How often are you checking your blood pressure? Daily What are your average readings? 123/74 Do you have any of the following symptoms? Chest Pain? no Palpitations? no FRANKLIN/SOB? no Headache? no Peripheral Edema? no Light Headedness? no Yearly BMP: 09/09/22_ Refill needed?: _ Health Maintenance: Colon: per pt [address] [place] [address] PSA: <0.1 09/09/22 and free psa < 0.1- continues to follow Urology, Hx of Prostates [place] 2006 covid: UTD questions/concerns: valsartan and ozempic on auto refills at [facility] so not sure on the ozempic if will need a new rx History of Present Illness Kenyetta Schumacher presents today for a follow-up evaluation. The patient is doing well. His blood pressure is within normal limits in the office today. The patient has a history of type 2 diabetes. His weight has stayed steady between 220 and 225 pounds. He would like to lose about 10 more pounds, but he is happy with his current weight. He is currently taking Ozempic 0.5 mg, which he is tolerating well; however, he notes that his appetite is starting to return. He is agreeable to increasing his dose at this time. The patient has a history of macrocytic anemia. His B12 level has been checked in the past and it was normal at that time. He is agreeable to a referral to oncology hematology. He has a [facility] physical on 01/12/2023. At that time, he will have complete metabolic blood work and a GFR completed. He notes that his kidney function was unchanged/stable for approximately 4 years. He will have these sent to me. Review of Systems PHQ Score Initial Depression Screen Score: 0 Physical Exam Vitals & Measurements HR: 65(Peripheral) RR: 16 BP: 118/72 SpO2: 93% HT: 68 in HT: 172 cm WT: 102.55 kg WT: 225.61 lb BMI: 34.66 General: alert, no acute distress ENMT: oral mucosa moist, no pharyngeal erythema or exudate Cardiovascular: regular rate and rhythm, normal peripheral perfusion Respiratory: Lungs CTA, respirations non labored Extremities: no deformity, no trauma Neurological: oriented x 4, LOC appropriate for age, CN II-XII intact, motor strength equal & normal bilaterally, speech normal Assessment/Plan 1. Type 2 diabetes mellitus with stage 3b chronic kidney disease, without long-term current use of insulin (E11.22: Type 2 diabetes mellitus with diabetic chronic kidney disease) The patient has been controlled on Ozempic. We will go up to help with a little bit more weight loss. The patient is still at 5.9 percent compared to 7.1 percent a year ago. The patient is improving significantly. We will continue to monitor on the semaglutide. 2. Macrocytic anemia (D53.9: Nutritional anemia, unspecified) At this time, we are going to send the patient to oncology hematology given that the patient has had normal B12 and folates in the past. I want to make sure that we are not missing something in this patient. 3. Malignant tumor of prostate (C61: Malignant neoplasm of prostate) The patient is seeing urology. No concerns at this time. The patient's last PSA was undetectable. 4. BMI 24.0-24.9, adult (Z68.24: Body mass index [BMI] 24.0-24.9, adult) BMI education given. 5. Stage 3b chronic kidney disease (N18.32: Chronic kidney disease, stage 3b) The patient is getting lab work at work next week. We will have the patient send us his lab work so that we can review. 6. Essential hypertension (I10: Essential (primary) hypertension) The patient is at goal on valsartan. No other issues. We will see the patient back in 3 months. ATTESTATION: Documentation services were performed after patient or guardian consented to allow [facility] to record this visit. LANCE catalog specialist and provider reviewed before signing. LANCE: Ivania Mckeon. Follow-up No qualifying data available Problem List/Past Medical History Ongoing Diabetic nephropathy associated with type 2 diabetes mellitus Epididymitis Essential hypertension Macrocytic anemia Malignant tumor of prostate Non-smoker Stage 3b chronic kidney disease Type 2 diabetes mellitus with stage 3b chronic kidney disease, without long-term current use of insulin Historical No qualifying data Procedure/Surgical History Colonoscopy (2018), Endoscopic prostatectomy (2005), History of tonsillectomy (1962). Medications Ozempic 2 mg/1.5 mL (1 mg dose) subcutaneous solution, 1 mg, SubCutaneous, qWeek, 3 refills valsartan 160 mg Tab, 160 mg= 1 tab(s), Oral, Daily, 3 refills Allergies Amino Acid (Muscle cramps) Li (more content not included)... Normal [facility] Comment on above: Result Comment: Elec tronically Signed By: Raul Byrd MD\.br\Date and Time Signed: 01/12/23 15:12 EDT\.br\Electronically Co-Signed By: Ivania Mckeon\Date and Time Co-Signed: 01/10/23 15:31 EDT Ambulatory Visit Summaryon 0 01-10-2023 Ambulatory Visit Summary KENYETTA SCHUMACHER I :1955 Visit Date:01/10/2023 Ambulatory Visit Instructions Your Diagnosis Type 2 diabetes mellitus with stage 3b chronic kidney disease, without long-term current use of insulin Macrocytic anemia Malignant tumor of prostate BMI 24.0-24.9, adult Stage 3b chronic kidney disease Essential hypertension Your Care Team Attending Physician - Raul Byrd MD Primary Care Physician - Raul Byrd MD This Is Your Medications List semaglutide (Ozempic 2 mg/1.5 mL (1 mg dose) subcutaneous solution) valsartan (valsartan 160 mg Tab) Procedures Performed Colonoscopy (2018), Endoscopic prostatectomy (2005), History of tonsillectomy (1962). Discharge Vitals Heart Rate (Peripheral) 65 Respiratory Rate 16 Blood Pressure 118/72 Height 172 cm Height 68 in Weight 102.55 kg Weight 225.61 lb BMI 34.66 What to do next Scheduled Follow-Up Appointments Tuesday 2:20 PM EDT With: Raul Byrd MD Where: [facility] CBC W Auto Differential pane l (Bld)on 11-11-2021 Basophils/100 WBC (Bld) 2.0 % Normal [facility] Comment on above: Order Comment: Speci men Type: BLOOD SPECIMEN Ordering Facility: [facility] Address: [address] [place] [address] Performed By: #### 5 7021-8 #### [facility] CLIA [id number] [address] [place] [id number] [place] [address] LAB CLIA [id number] [address] [place] [address] [place] Differential cell count method Nom (Bld) Manual Normal [facility] Comment on above: Order Comment: Speci men Type: BLOOD SPECIMEN Ordering Facility: [facility] Address: [address] [place] [address] Performed By: #### 5 7021-8 #### [facility] CLIA [id number] [address] [place] [address] LAB CLIA [id number] [address] [place] [address] [place] Eosinophils (Bld) [#/Vol] 0.00 10*3/uL Normal <0.46 [facility] Comment on above: Order Comment: Speci men Type: BLOOD SPECIMEN Ordering Facility: [facility] Address: [address] [place], [place] [address] Performed By: #### 5 7021-8 #### [facility] CLIA [id number] [address] [place] [address] LAB CLIA [id number] [address] [place] [address] [place] Eosinophils/100 WBC (Bld) 0.0 % Normal [facility] Comment on above: Order Comment: Speci men Type: BLOOD SPECIMEN Ordering Facility: [facility] Address: [address] [place], [place] [address] Performed By: #### 5 7021-8 #### [facility] CLIA [id number] [address] [place] [address] LAB CLIA [id number] [address] [place] [address] [place] Erythrocyte distribution width (RBC) [Ratio] 14.5 % Normal 11.5-15.0 [facility] Comment on above: Order Comment: Speci men Type: BLOOD SPECIMEN Ordering Facility: [facility] Address: [address] [place] [address] Performed By: #### 5 7021-8 #### [facility] CLIA [id number] [address] [place] [address] LAB CLIA [id number] [address] [place] [address] [place] Hematocrit (Bld) [Volume fraction] 36.2 % Low 39.0-51.0 [facility] Comment on above: Order Comment: Speci men Type: BLOOD SPECIMEN Ordering Facility: [facility] Address: [address] [place] [address] Performed By: #### 5 7021-8 #### [facility] CLIA [id number] [address] [place] [address] LAB CLIA [id number] [address] [place] [address] [place] Hemoglobin (Bld) [Mass/Vol] 12.0 g/dL Low 13.0-17.0 [facility] Comment on above: Order Comment: Speci men Type: BLOOD SPECIMEN Ordering Facility: [facility] Address: [address] [place] [address] Performed By: #### 5 7021-8 #### [facility] CLIA [id number] [address] [place] [address] LAB CLIA [id number] [address] [place] [address] [place] Lymphocytes (Bld) [#/Vol] 1.54 10*3/uL Normal 1.00-4.00 [facility] Comment on above: Order Comment: Speci men Type: BLOOD SPECIMEN Ordering Facility: [facility] Address: [address] [place], [place] [address] Performed By: #### 5 7021-8 #### [facility] CLIA [id number] [address] [place] [address] LAB CLIA [id number] [address] [place] [address] [place] Lymphocytes/100 WBC (Bld) 10.0 % Normal [facility] Comment on above: Order Comment: Speci men Type: BLOOD SPECIMEN Ordering Facility: [facility] Address: [address] [place], [place] [address] Performed By: #### 5 7021-8 #### [facility] CLIA [id number] [address] [place] [address] LAB CLIA [id number] [address] [place] [address] [place] MCH (RBC) [Entitic mass] 34.8 pg High 26.0-34.0 [facility] Comment on above: Order Comment: Speci men Type: BLOOD SPECIMEN Ordering Facility: [facility] Address: [address] [place] [address] Performed By: #### 5 7021-8 #### [facility] CLIA [id number] [address] [place] [address] LAB CLIA [id number] [address] [place] [address] [place] MCHC (RBC) [Mass/Vol] 33.1 g/dL Normal 30.5-36.0 [facility] Comment on above: Order Comment: Speci men Type: BLOOD SPECIMEN Ordering Facility: [facility] Address: [address] [place], [place] [address] Performed By: #### 5 7021-8 #### [facility] CLIA [id number] [address] [place] [address] LAB CLIA [id number] [address] [place] [address] [place] MCV (RBC) [Entitic vol] 104.9 fL High 80.0-100.0 [facility] Comment on above: Order Comment: Speci men Type: BLOOD SPECIMEN Ordering Facility: [facility] Address: [address] [place] [address] Performed By: #### 5 7021-8 #### [facility] CLIA [id number] [address] [place] [address] LAB CLIA [id number] [address] [place] [address] [place] MYELO% 1.0 % Normal [facility] Comment on above: Order Comment: Speci men Type: BLOOD SPECIMEN Ordering Facility: [facility] Address: [address] [place] [address] Performed By: #### 5 7021-8 #### [facility] CLIA [id number] [address] [place] [address] LAB CLIA [id number] [address] [place] [address] [place] Neutrophils (Bld) [#/Vol] 12.49 10*3/uL High 1.45-7.50 [facility] Comment on above: Order Comment: Speci men Type: BLOOD SPECIMEN Ordering Facility: [facility] Address: [address] [place] [address] Performed By: #### 5 7021-8 #### [facility] CLIA [id number] [address] [place] [address] LAB CLIA [id number] [address] [place] [address] [place] Neutrophils/100 WBC (Bld) 81.0 % Normal [facility] Comment on above: Order Comment: Speci men Type: BLOOD SPECIMEN Ordering Facility: [facility] Address: [address] [place], [place] [address] Performed By: #### 5 7021-8 #### [facility] CLIA [id number] [address] [place] [address] LAB CLIA [id number] [address] [place] [address] [place] Nucleated RBC/100 WBC (Bld) [Ratio] 0.0 /100 WBC Normal [facility] Comment on above: Order Comment: Speci men Type: BLOOD SPECIMEN Ordering Facility: [facility] Address: [address] [place], [place] [address] Performed By: #### 5 7021-8 #### [facility] CLIA [id number] [address] [place] [address] LAB CLIA [id number] [address] [place] [address] [place] Ovalocytes LM Ql (Bld) Few Normal [facility] Comment on above: Order Comment: Speci men Type: BLOOD SPECIMEN Ordering Facility: [facility] Address: [address] [place] [address] Performed By: #### 5 7021-8 #### [facility] CLIA [id number] [address] [place] [address] LAB CLIA [id number] [address] [place] [address] [place] PLATELET ESTIMATE Increased Normal [facility] Comment on above: Order Comment: Speci men Type: BLOOD SPECIMEN Ordering Facility: [facility] Address: [address] [place] [address] Performed By: #### 5 7021-8 #### [facility] CLIA [id number] [address] [place] [address] LAB CLIA [id number] [address] [place] [address] [place] Platelet mean volume (Bld) [Entitic vol] 9.3 fL Normal 9.0-12.7 [facility] Comment on above: Order Comment: Speci men Type: BLOOD SPECIMEN Ordering Facility: [facility] Address: [address] [place] [address] Performed By: #### 5 7021-8 #### [facility] CLIA [id number] [address] [place] [address] LAB CLIA [id number] [address] [place] [address] [place] Platelets (Bld) [#/Vol] 451 10*3/uL High 150-400 [facility] Comment on above: Order Comment: Speci men Type: BLOOD SPECIMEN Ordering Facility: [facility] Address: [address] [place] [address] Performed By: #### 5 7021-8 #### [facility] CLIA [id number] [address] [place] [address] LAB CLIA [id number] [address] [place] [address] [place] Polychromasia LM Ql (Bld) Slight Normal [facility] Comment on above: Order Comment: Speci men Type: BLOOD SPECIMEN Ordering Facility: [facility] Address: [address] [place] [address] Performed By: #### 5 7021-8 #### [facility] CLIA [id number] [address] [place] [address] LAB CLIA [id number] [address] [place] [address] [place] RBC (Bld) [#/Vol] 3.45 10*6/uL Low 4.20-6.00 [facility] Comment on above: Order Comment: Speci men Type: BLOOD SPECIMEN Ordering Facility: [facility] Address: [address] [place] [address] Performed By: #### 5 7021-8 #### [facility] CLIA [id number] [address] [place] [address] LAB CLIA [id number] [address] [place] [address] [place] RED CELL MORPH Reviewed Normal [facility] Comment on above: Order Comment: Speci men Type: BLOOD SPECIMEN Ordering Facility: [facility] Address: [address] [place] [address] Performed By: #### 5 7021-8 #### [facility] CLIA [id number] [address] [place] [address] LAB CLIA [id number] [address] [place] [address] [place] WAM - ABS BASO 0.31 k/uL High <0.11 [facility] Comment on above: Order Comment: Speci men Type: BLOOD SPECIMEN Ordering Facility: [facility] Address: [address] [place], [place] [address] Performed By: #### 5 7021-8 #### [facility] CLIA [id number] [address] [place] [address] LAB CLIA [id number] [address] [place] [address] [place] WAM - ABS MONO 0.93 k/uL High <0.87 [facility] Comment on above: Order Comment: Speci men Type: BLOOD SPECIMEN Ordering Facility: [facility] Address: [address] [place] [address] Performed By: #### 5 7021-8 #### [facility] CLIA [id number] [address] [place] [address] LAB CLIA [id number] [address] [place] [address] [place] WAM - MONO% 6.0 % Normal [facility] Comment on above: Order Comment: Speci men Type: BLOOD SPECIMEN Ordering Facility: [facility] Address: [address] [place] [address] Performed By: #### 5 7021-8 #### [facility] CLIA [id number] [address] [place] [address] LAB CLIA [id number] [address] [place] [address] [place] WAM ABSOLUTE NRBC <0.01 Normal <0.01 [facility] Comment on above: Order Comment: Speci men Type: BLOOD SPECIMEN Ordering Facility: [facility] Address: [address] [place] [address] Performed By: #### 5 7021-8 #### [facility] CLIA [id number] [address] [place] [address] LAB CLIA [id number] [address] [place] [address] [place] WBC (Bld) [#/Vol] 15.42 10*3/uL High 3.70-11.00 [facility] Comment on above: Order Comment: Speci men Type: BLOOD SPECIMEN Ordering Facility: [facility] Address: [address] [place] [address] Performed By: #### 5 7021-8 #### [facility] CLIA [id number] [address] [place] [address] LAB CLIA [id number] [address] [place] [address] [place] WBC Left Shift Ql (Bld) Present Normal [facility] Comment on above: Order Comment: Speci men Type: BLOOD SPECIMEN Ordering Facility: [facility] Address: [address] [place] [address] Performed By: #### 5 7021-8 #### [facility] CLIA [id number] [address] [place] [address] LAB CLIA [id number] [address] [place] [address] [place] CRP SerPl-mCncon 11-11-2021 CRP [Mass/Vol] 0.4 mg/dL Normal <0.9 [facility] Comment on above: Order Comment: Speci men Type: BLOOD SPECIMEN Ordering Facility: [facility] Address: [address] [place] [address] Performed By: #### 1 988-5 #### [facility] CLIA [id number] [address] [place] [address] [place] Comprehensive metabolic 2000 panelon 11-11-2021 Albumin [Mass/Vol] 4.4 g/dL Normal 3.9-4.9 [facility] Comment on above: Order Comment: Speci men Type: BLOOD SPECIMENOrdering Facility: [facility] Address: [address] [place] [address] Performed By: #### 2 4323-8 ####[facility] [id number] [place] [address] ALP [Catalytic activity/Vol] 53 U/L Normal 38-113 [facility] Comment on above: Order Comment: Speci men Type: BLOOD SPECIMENOrdering Facility: [facility] Address: [address] [place] [address] Performed By: #### 2 4323-8 ####[facility] [id number] [place] [address] ALT [Catalytic activity/Vol] 34 U/L Normal 10-54 [facility] Comment on above: Order Comment: Speci men Type: BLOOD SPECIMENOrdering Facility: [facility] Address: [address] [place] [address] Performed By: #### 2 4323-8 ####[facility] [id number] [place] [address] Anion gap [Moles/Vol] 10 mmol/L Normal 9-18 [facility] Comment on above: Order Comment: Speci men Type: BLOOD SPECIMENOrdering Facility: [facility] Address: [address] [place] [address] Performed By: #### 2 4323-8 ####[facility] [id number] [place] [address] AST [Catalytic activity/Vol] 18 U/L Normal 14-40 [facility] Comment on above: Order Comment: Speci men Type: BLOOD SPECIMENOrdering Facility: [facility] Address: [address] [place] [address] Performed By: #### 2 4323-8 ####[facility]CL[facility] [id number] [place] [address] Bilirubin [Mass/Vol] 0.2 mg/dL Normal 0.2-1.3 [facility] Comment on above: Order Comment: Speci men Type: BLOOD SPECIMENOrdering Facility: [facility] Address: [address] [place] [address] Performed By: #### 2 4323-8 ####[facility] [id number] [place] [address] Calcium [Mass/Vol] 10.0 mg/dL Normal 8.5-10.2 [facility] Comment on above: Order Comment: Speci men Type: BLOOD SPECIMENOrdering Facility: [facility] Address: [address] [place] [address] Performed By: #### 2 4323-8 ####[facility] LAB[facility]IA [id number] [place] [address] Chloride [Moles/Vol] 105 mmol/L Normal 97-105 [facility] Comment on above: Order Comment: Speci men Type: BLOOD SPECIMENOrdering Facility: [facility] Address: [address] [place] [address] Performed By: #### 2 4323-8 ####[facility] LABCLIA [id number] [place] [address] CO2 [Moles/Vol] 20 mmol/L Low 22-30 [facility] Comment on above: Order Comment: Speci men Type: BLOOD SPECIMENOrdering Facility: [facility] Address: [address] [place] [address] Performed By: #### 2 4323-8 ####[facility] LABCLIA [id number] [place] [address] Creatinine [Mass/Vol] 1.69 mg/dL High 0.73-1.22 [facility] Comment on above: Order Comment: Speci men Type: BLOOD SPECIMENOrdering Facility: [facility] Address: [address] [place] [address] Performed By: #### 2 4323-8 ####[facility] LABCLIA [id number] [place] [address] ESTIMATED GLOMERULAR FILTRATION RATE 44 mL/min/1.73m??? Low >=60 [facility] Comment on above: Order Comment: Speci men Type: BLOOD SPECIMENOrdering Facility: [facility] Address: [address] [place] [address] Result Comment: Sara mated Glomerular Filtration Rate (eGFR) is calculated using the 2020 CKD-EPI creatinine equation. This equation utilizes serum creatinine, sex, and age as parameters. The creatinine assay has traceable calibration to isotope dilution-mass spectrometry. Refer to KDIGO guidelines for clinical interpretation. In patients with unstable renal function, e.g. those with acute kidney injury, the eGFR may not accurately reflect actual GFR. Performed By: #### 2 4323-8 ####[facility] LAB[facility] [id number] [place] [address] Glucose [Mass/Vol] 249 mg/dL High 74-99 [facility] Comment on above: Order Comment: Normai bennie Type: BLOOD SPECIMENOrdering Facility: [facility] Address: [address] [place] [address] Result Comment: The [place] [employer] (ADA) provides guidance for cutoff values for fasting glucose and random glucose. The ADA defines fasting as no caloric intake for at least 8 hours. Fasting plasma glucose results between 100 to 125 mg/dL indicate increased risk for diabetes (prediabetes). Fasting plasma glucose results greater than or equal to 126 mg/dL meet the criteria for diagnosis of diabetes. In the absence of unequivocal hyperglycemia, results should be confirmed by repeat testing. In a patient with classic symptoms of hyperglycemia or hyperglycemic crisis, random plasma glucose results greater than or equal to 200 mg/dL meet the criteria for diagnosis of diabetes. Reference: Standards of Medical Care in Diabetes 2016, [place] Diabetes Association. Diabetes Care. 2016.39(Suppl 1). Performed By: #### 2 4323-8 ####[facility] LAB[facility] [id number] [place] [address] Potassium [Moles/Vol] 5.3 mmol/L High 3.7-5.1 [facility] Comment on above: Order Comment: Speci men Type: BLOOD SPECIMENOrdering Facility: [facility] Address: [address] [place] [address] Performed By: #### 2 4323-8 ####[facility] LABCLIA [id number] [place] [address] Protein [Mass/Vol] 7.4 g/dL Normal 6.3-8.0 [facility] Comment on above: Order Comment: Speci men Type: BLOOD SPECIMENOrdering Facility: [facility] Address: [address] [place] [address] Performed By: #### 2 4323-8 ####[facility] LABCLIA [id number] [place] [address] Sodium [Moles/Vol] 135 mmol/L Low 136-144 [facility] Comment on above: Order Comment: Speci men Type: BLOOD SPECIMENOrdering Facility: [facility] Address: [address] [place] [address] Performed By: #### 2 4323-8 ####[facility] LABCLIA [id number] [place] [address] Urea nitrogen [Mass/Vol] 57 mg/dL High 9-24 [facility] Comment on above: Order Comment: Speci men Type: BLOOD SPECIMENOrdering Facility: [facility] Address: [address] [place] [address] Performed By: #### 2 4323-8 ####[facility] LABCLIA [id number] [place] [address] ESR Westergren method (Bld) [Velocity]on 11-11-2021 ESR (Bld) [Velocity] 48 mm/h High 0-15 [facility] Comment on above: Order Comment: Speci men Type: BLOOD SPECIMENOrdering Facility: [facility] Address: [address] [place], [place] [address] Performed By: #### 4 537-7 ####[facility] LABCLIA [id number] [address] IMMUNOFIXATION SCREEN, SERUM on 11-11-2021 MPA RESULT No M protein is identified. Normal No M protein is identified. [facility] Comment on above: Order Comment: Speci men Type: BLOOD SPECIMEN Ordering Facility: [facility] Address: [address] [place], [place] [address] Performed By: #### 1 988-5 #### [facility] CLIA [id number] [address] [place] [address] OF [facility] STAFF REVIEW (MPA) Reviewed by Ren Hooks MD, Ph.D ([id number]) Normal [facility] Comment on above: Order Comment: Speci men Type: BLOOD SPECIMEN Ordering Facility: [facility] Address: [address] [place], [place] [address] Performed By: #### 1 988-5 #### [facility] CLIA [id number] [address] [place] [address] [place] IMMUNOGLOBULINS GAMon 2021 IgA [Mass/Vol] 285 mg/dL Normal 70-400 [facility] Comment on above: Order Comment: Speci men Type: BLOOD SPECIMEN Ordering Facility: [facility] Address: [address] [place], [place] [address] Performed By: #### 1 988-5 #### [facility] CLIA [id number] [address] [place] [address] [place] IgG [Mass/Vol] 1053 mg/dL Normal 700-1,600 [facility] Comment on above: Order Comment: Speci men Type: BLOOD SPECIMEN Ordering Facility: [facility] Address: [address] [place], [place] [address] Performed By: #### 1 988-5 #### [facility] CLIA [id number] [address] [place] [address] [place] IgM [Mass/Vol] 101 mg/dL Normal 40-230 [facility] Comment on above: Order Comment: Speci men Type: BLOOD SPECIMEN Ordering Facility: [facility] Address: [address] [place] [address] Performed By: #### 1 988-5 #### [facility] CLIA [id number] [address] [place] [address] [place] KAPPA/NEWMAN,FREE,SERon 2021 Immunoglobulin light chains.kappa.free (S) [Mass/Vol] 32.4 mg/L High 3.3-19.4 [facility] Comment on above: Order Comment: Speci men Type: BLOOD SPECIMENOrdering Facility: [facility] Address: [address] [place] [address] Performed By: #### K LFRS ####[facility] LABCLIA [id number] [place] [address] [place] Immunoglobulin light chains.kappa/Immuno globulin light chains.lambda (S) [Mass ratio] 1.05 Normal 0.26-1.65 [facility] Comment on above: Order Comment: Speci men Type: BLOOD SPECIMENOrdering Facility: [facility] Address: [address] [place], [place] [address] Performed By: #### K LFRS ####[facility] LABCLIA [id number] [place] [address] [place] Immunoglobulin light chains.lambda.free [Mass/Vol] 31.0 mg/L High 5.7-26.3 [facility] Comment on above: Order Comment: Speci men Type: BLOOD SPECIMENOrdering Facility: [facility] Address: [address] [place] [address] Performed By: #### K LFRS ####[facility] LABCLIA [id number] [place] [address] [place] Basic metabolic 2000 panelon 11-07-2021 Anion gap [Moles/Vol] 11 mmol/L Normal 9-18 [facility] Comment on above: Order Comment: Speci men Type: BLOOD SPECIMEN Ordering Facility: [facility] Address: [address] [place], [place] [address] Performed By: #### 1 988-5 #### [facility] CLIA [id number] [address] [place] [address] [place] Calcium [Mass/Vol] 9.5 mg/dL Normal 8.5-10.2 [facility] Comment on above: Order Comment: Speci men Type: BLOOD SPECIMEN Ordering Facility: [facility] Address: [address] [place], [place] [address] Performed By: #### 1 988-5 #### [facility] CLIA [id number] [address] [place] [address] [place] Chloride [Moles/Vol] 103 mmol/L Normal 97-105 [facility] Comment on above: Order Comment: Speci men Type: BLOOD SPECIMEN Ordering Facility: [facility] Address: [address] [place] [address] Performed By: #### 1 988-5 #### [facility] CLIA [id number] [address] [place] [address] [place] CO2 [Moles/Vol] 21 mmol/L Low 22-30 [facility] Comment on above: Order Comment: Speci men Type: BLOOD SPECIMEN Ordering Facility: [facility] Address: [address] [place] [address] Performed By: #### 1 988-5 #### [facility] CLIA [id number] [address] [place], [place] [address] [place] Creatinine [Mass/Vol] 1.81 mg/dL High 0.73-1.22 [facility] Comment on above: Order Comment: Misty avery Type: BLOOD SPECIMEN Ordering Facility: [facility] Address: [address] [place], [place] [address] Performed By: #### 1 988-5 #### [facility] CLIA [id number] [address] [place] [address] [place] ESTIMATED GLOMERULAR FILTRATION RATE 41 mL/min/1.73m??? Low >=60 [facility] Comment on above: Order Comment: Misty avery Type: BLOOD SPECIMEN Ordering Facility: [facility] Address: [address] [place] [address] Result Comment: Sara mated Glomerular Filtration Rate (eGFR) is calculated using the 2020 CKD-EPI creatinine equation. This equation utilizes serum creatinine, sex, and age as parameters. The creatinine assay has traceable calibration to isotope dilution-mass spectrometry. Refer to KDIGO guidelines for clinical interpretation. In patients with unstable renal function, e.g. those with acute kidney injury, the eGFR may not accurately reflect actual GFR. Performed By: #### 1 988-5 #### [facility] CLIA [id number] [address] [place] [address] [place] Glucose [Mass/Vol] 179 mg/dL High 74-99 [facility] Comment on above: Order Comment: Misty bennie Type: BLOOD SPECIMEN Ordering Facility: [facility] Address: [address] [place] [address] Result Comment: The [place] Diabetes Association (ADA) provides guidance for cutoff values for fasting glucose and random glucose. The ADA defines fasting as no caloric intake for at least 8 hours. Fasting plasma glucose results between 100 to 125 mg/dL indicate increased risk for diabetes (prediabetes). Fasting plasma glucose results greater than or equal to 126 mg/dL meet the criteria for diagnosis of diabetes. In the absence of unequivocal hyperglycemia, results should be confirmed by repeat testing. In a patient with classic symptoms of hyperglycemia or hyperglycemic crisis, random plasma glucose results greater than or equal to 200 mg/dL meet the criteria for diagnosis of diabetes. Reference: Standards of Medical Care in Diabetes 2016, [place] Diabetes Association. Diabetes Care. 2016.39(Suppl 1). Performed By: #### 1 988-5 #### [facility] CLIA [id number] [address] [place] [address] [place] Potassium [Moles/Vol] 5.5 mmol/L High 3.7-5.1 [facility] Comment on above: Order Comment: Speci men Type: BLOOD SPECIMEN Ordering Facility: [facility] Address: [address] [place], [place] [address] Performed By: #### 1 988-5 #### [facility] CLIA [id number] [address] [place] [address] [place] Sodium [Moles/Vol] 135 mmol/L Low 136-144 [facility] Comment on above: Order Comment: Speci men Type: BLOOD SPECIMEN Ordering Facility: [facility] Address: [address] [place] [address] Performed By: #### 1 988-5 #### [facility] CLIA [id number] [address] [place] [address] [place] Urea nitrogen [Mass/Vol] 38 mg/dL High 9-24 [facility] Comment on above: Order Comment: Speci men Type: BLOOD SPECIMEN Ordering Facility: [facility] Address: [address] [place] [address] Performed By: #### 1 988-5 #### [facility] CLIA [id number] [address] [place] [address] [place] CBC panel Auto (Bld)on 11-07 Erythrocyte distribution width (RBC) [Ratio] 13.9 % Normal 11.5-15.0 [facility] Comment on above: Order Comment: Speci men Type: BLOOD SPECIMENOrdering Facility: [facility] Address: [address] [place] [address] Performed By: #### 5 8410-2 ####[facility] [id number] [address] [place] Hematocrit (Bld) [Volume fraction] 33.1 % Low 39.0-51.0 [facility] Comment on above: Order Comment: Speci men Type: BLOOD SPECIMENOrdering Facility: [facility] Address: [address] [place] [address] Performed By: #### 5 8410-2 ####[facility] [id number] [address] [place] Hemoglobin (Bld) [Mass/Vol] 10.9 g/dL Low 13.0-17.0 [facility] Comment on above: Order Comment: Speci men Type: BLOOD SPECIMENOrdering Facility: [facility] Address: [address] [place] [address] Performed By: #### 5 8410-2 ####[facility]IA [id number] [address] MCH (RBC) [Entitic mass] 35.3 pg High 26.0-34.0 [facility] Comment on above: Order Comment: Speci men Type: BLOOD SPECIMENOrdering Facility: [facility] Address: [address] [place] [address] Performed By: #### 5 8410-2 ####[facility] [id number] [address] [place] MCHC (RBC) [Mass/Vol] 32.9 g/dL Normal 30.5-36.0 [facility] Comment on above: Order Comment: Speci men Type: BLOOD SPECIMENOrdering Facility: [facility] Address: [address] [place], [place] [address] Performed By: #### 5 8410-2 ####[facility] [id number] [place] [address] [place] MCV (RBC) [Entitic vol] 107.1 fL High 80.0-100.0 [facility] Comment on above: Order Comment: Speci men Type: BLOOD SPECIMENOrdering Facility: [facility] Address: [address] [place] [address] Performed By: #### 5 8410-2 ####[facility]IA [id number] [place] [address] [place] Nucleated RBC (Bld) [#/Vol] 10*3/uL Normal <0.01 [facility] Comment on above: Order Comment: Speci men Type: BLOOD SPECIMENOrdering Facility: [facility] Address: [address] [place], [place] [address] Performed By: #### 5 8410-2 ####[facility]IA [id number] [place] [address] [place] Platelet mean volume (Bld) [Entitic vol] 9.5 fL Normal 9.0-12.7 [facility] Comment on above: Order Comment: Speci men Type: BLOOD SPECIMENOrdering Facility: [facility] Address: [address] [place], [place] [address] Performed By: #### 5 8410-2 ####[facility]IA [id number] [place] [address] [place] Platelets (Bld) [#/Vol] 354 10*3/uL Normal 150-400 [facility] Comment on above: Order Comment: Speci men Type: BLOOD SPECIMENOrdering Facility: [facility] Address: [address] [place] [address] Performed By: #### 5 8410-2 ####[facility] [id number] [place] [address] [place] RBC (Bld) [#/Vol] 3.09 10*6/uL Low 4.20-6.00 [facility] Comment on above: Order Comment: Speci men Type: BLOOD SPECIMENOrdering Facility: [facility] Address: [address] [place] [address] Performed By: #### 5 8410-2 ####[facility] [id number] [place] [address] [place] WBC (Bld) [#/Vol] 5.89 10*3/uL Normal 3.70-11.00 [facility] Comment on above: Order Comment: Speci men Type: BLOOD SPECIMENOrdering Facility: [facility] Address: [address] [place], [place] [address] Performed By: #### 5 8410-2 ####[facility] [id number] [address] [place] CNDSon 11-07-2021 CNDS HNO ID: [id number] Author: Ida Lo MD Service: General Internal Medicine Author Type: Physician Type: Discharge Summary Filed: 11/07/2021 2:07 PM Note Text: DISCHARGE SUMMARY PATIENT NAME: Kenyetta Schumacher ADMISSION DATE: 11/04/2021 DISCHARGE DATE: 11/07/2021 ATTENDING PHYSICIAN: Ida Lo MD Code Status: Full Code Highest Readmission Risk Score: 17 The 30 day readmissions risk score is derived from an internally validated risk model which evaluates patient level characteristics, utilization history, medication orders and lab results up until the day of discharge. Patients with a score of 40 or above are considered highest risk for readmission. Specific patient level drivers will be listed at the bottom of the summary. CONSULTING TEAMS DURING HOSPITALIZATION: Rheumatology: Urology: Treatment Team: Attending Provider: Ida Lo MD Primary Service: Gi 3 REASON FOR HOSPITALIZATION: Left groin pain DIAGNOSIS: Active Problems: Groin pain POA: Unknown Right epididymitis POA: Unknown Primary hypertension POA: Unknown Type 2 diabetes mellitus with other specified complication (HCC) POA: Unknown Stage 3 chronic kidney disease (HCC) POA: Unknown Prostate cancer (HCC) POA: Unknown Epididymitis POA: Yes Obesity, Class I, BMI 30-34.9 POA: Unknown Resolved Problems: * No resolved hospital problems. * OPERATIONS DURING HOSPITALIZATION: None PROCEDURES DURING HOSPITALIZATION: 1. Ultrasound scrotum on 11/04/2021: Findings suggestive of right epididymitis. Small left varicocele. Normal sonographic appearance of the testes with normal arterial and venous flow. 2. CT abdomen pelvis with IV contrast on 11/04/2021: NO ACUTE PROCESS. SMALL LEFT ADRENAL NODULE LIKELY AN ADENOMA. 3. MRI thoracic and lumbar spine with and without contrast on 11/05/2021: Mild thoracic spondylosis without high-grade canal narrowing or cord compression, abnormal cord signal, or abnormal enhancement. Lumbar spondylosis as described worst at L4-5 with mild to moderate canal narrowing, and at L5-S1 with a right sided synovial cyst causing mild mass effect on the exiting right L5 nerve root. ?No abnormal laryngeal enhancement. T2 intermediate lesion in the midpole the right kidney, and retrospect had intermediate attenuation on the recent CT abdomen and pelvis, measuring up to 1.5 cm. While this may be due to a hemorrhagic cyst, consider follow-up renal ultrasound for further evaluation if clinically indicated. Anatomic Thoracic/Lumbar Variant: None. ?L4-5 is considered the level of the iliac crest and assume there are 5 lumbar-type vertebrae 4. MRI pelvis with and without contrast on 11/05/2021: Nonspecific edema like signal within the proximal adductor compartments may represent myositis versus low-grade strain; correlate with history. No discrete mass or marrow replacing lesion. HOSPITAL COURSE: Mr. Kenyetta Schumacher is a 66 year old male?with PMHx of HTN, CKD 3, diabetes, prostate cancer, left adrenal nodule, nicotine dependence, bilateral hydroceles,?presented?to ER?with left groin pain?that started all of a sudden on 10/28/21 . ? Active Problems: Groin pain, left more than right. Mid-lower back pain Inability to ambulate - Presented to [facility] on 10/28/21 with groin pain, workup at that time including CT A/P, MRI lumbar spine, scrotal US, CRP, UA were negative. At [facility] -CT abdomen and pelvis did not show any evidence of acute findings. -MRI pelvis showed findings suggestive of myositis in proximal adductor compartments and L5-S1 with a right sided synovial cyst causing mild mass effect on the exiting right L5 nerve root (question if clinically relevant). CK level was normal. Evaluated by rheumatology. Recommended prednisone based on MRI findings. With 2 doses of prednisone 40 mg daily, patient experienced significant relief in pain and started ambulating with walker. Rheumatology recommended tapering dose of prednisone: 30 mg daily for 2 days, 20 mg daily for 2 days, 10 mg daily for 2 days and then stop. Rheumatology will arrange follow-up appointment after discharge. Unfortunately, there was no definitive diagnosis though patient showed significant improvement in left groin pain with prednisone. Initially PT/OT recommended home PT/OT. But with significant improvement in ambulation, patient was provided with outpatient prescription for PT and OT. -?US?scrotum?showed findings suggestive of right?epididimitis.?CRP 14.2, ESR 117. No leukocytosis. Negative UA. CT A/P without acute process. Patient was started on Bactrim. Urology evaluated but based on physical exam and ultrasound findings, determined that patient did not have epididymis. Bactrim was stopped prior to discharge. CRP improved from 14.2 to 4.6 prior to discharge.CRP likely improved due to prednisone. Urine cultures, blood cultures did not show (more content not included)... Normal [facility] CONSULT PROGon 11-07-2021 CONSULT PROG HNO ID: [id number] Author: Quinton Bhatt MD Service: Rheumatology Author Type: Physician Type: Consult Progress Note Filed: 11/07/2021 4:30 PM Note Text: Rheumatology Consult Progress Note Patient name: Kenyetta Schumacher Requesting provider: Hanny Alcala MD Reason for consult: Groin pain, back pain SUBJECTIVE Interval events: - Received prednisone 40 mg x 2 doses (yesterday and today) - Feels significantly better today, able to ambulate with much reduced pain Medical History: PAST MEDICAL HISTORY Diagnosis Date - Adrenal nodule (HCC) - Primary hypertension - Prostate cancer (HCC) - Stage 3 chronic kidney disease (HCC) - Type 2 diabetes mellitus with other specified complication (HCC) History reviewed. No pertinent surgical history. Social History Tobacco Use - Smoking status: Not on file - Smokeless tobacco: Not on file Substance Use Topics - Alcohol use: Not on file - Drug use: Not on file No family history on file. ALLERGIES Allergen Reactions - Amino Acids Other: See Comments - Dextroamphetamine Other: See Comments - Losartan Other: See Comments - Simvastatin Other: See Comments Current Facility-Administered Medications Medication Dose Route Frequency - sodium chloride 0.9 % (flush) 3-5 mL (BD POSIFLUSH) 3-5 mL INTRAVENOUS q 12 H - NaCl 0.9% iv flush bag 20 mL INTRAVENOUS PRN - acetaminophen 650 mg tab(s) (TYLENOL) 650 mg ORAL q 6 H PRN - polyethylene glycol 3350 17 g packet (MIRALAX, GLYCOLAX) 17 g ORAL DAILY - heparin 5,000 Units injection 5,000 Units SUBCUTANEOUS q 12 H - oxyCODONE IR 5 mg tab(s) (ROXICODONE) 5 mg ORAL q 3 H PRN - lidocaine 4 % 1 Patch (SALONPAS) 1 Patch TRANSDERMAL DAILY AT 9 PM And - lidocaine patch - REMOVE OTHER DAILY And - lidocaine - VERIFY PATCH OTHER q 8 H - morphine 4 mg injection 4 mg INTRAVENOUS q 8 H PRN - dextrose 40 % 15 g 15 g ORAL PRN Or - glucagon 1 mg injection 1 mg INTRAMUSCULAR PRN Or - dextrose 50% in water 25 mL syringe 12.5 g INTRAVENOUS PRN - insulin lispro injection (rapid acting) (HumaLOG) SUBCUTANEOUS w MEALS AND HS - ondansetron orally disintegrating 4 mg tab(s) (ZOFRAN ODT) 4 mg ORAL q 6 H PRN Or - ondansetron (PF) 4 mg injection (ZOFRAN) 4 mg INTRAVENOUS q 6 H PRN - senna 8.6 mg tab(s) (SENOKOT) 8.6 mg ORAL BID Review of Systems: Positives in bold. GENERAL: weight loss, fevers, chills, or sweats. fatigue or lightheadedness RESPIRATORY: Cough, SOB, or wheezing CARDIOVASCULAR: Chest pain, leg swelling or palpitations GI: Nausea, vomiting, diarrhea, constipation, melena, hematochezia : Burning with urination, dysuria, hematuria SKIN: Rash OBJECTIVE 11/06/21199911/06/21 2323 11/07/21 0408 11/07/21 0810 BP: 112/50 120/53 122/56 111/53 Pulse: 80 78 74 73 Resp: 20 20 20 16 Temp: 36.7 ?C (98.1 ?F) 36.9 ?C (98.4 ?F) 36.7 ?C (98.1 ?F) 36.4 ?C (97.5 ?F) TempSrc: Oral Oral Oral Oral SpO2: 93% 92% 91% 92% Weight: Height: Intake/Output Summary (Last 24 hours) at 11/07/2021 1055 Last data filed at 11/07/2021 1000 Gross per 24 hour Intake 1190 ml Output 1975 ml Net -785 ml Exam: General Appearance: alert, in no acute distress Skin: Skin color, texture, turgor normal, no suspicious rashes or lesions Head: Normocephalic, atraumatic Eyes: Anicteric sclera. Pupils are equally round Lung: breathing comfortably on room air Extremities: No deformities, edema, skin discoloration, clubbing or cyanosis Neuro: grossly intact Hips: External rotation ROM intact. Internal rotation of the hips and hip roll are both not limited by pain today, and there is no pain with resisted adduction of the hips. Recent Labs 11/07/21 0556 11/06/21 0550 11/05/21 1223 11/05/21 1030 11/04/21 1422 11/04/21 1225 WBC 5.89 5.43 -- 8.50 < > 8.95 HB 10.9* 10.3* -- 10.7* < > 12.5* HCT 33.1* 32.3* -- 33.1* < > 37.8* PLT 354 289 -- 322 < > 310 NA 135* 140 137 138 -- 139 K 5.5* 5.2* 5.3* 5.5* -- 4.9 CHLOR 103 105 104 105 -- 106* CO2 21* 23 18* 19* -- 21* CREAT 1.81* 2.03* 1.97* 1.97* -- 1.80* BUN 38* 38* 40* 38* -- 44* GLUC 179* 114* 137* 164* -- 135* TPROT -- -- -- -- -- 7.7 ALB -- -- -- -- -- 4.3 CA 9.5 8.8 9.5 9.2 -- 9.6 ALKPHOS -- -- -- -- -- 61 TBILI -- -- -- -- -- 0.3 AST -- -- -- -- -- 10* ALT -- -- -- -- -- 16 CRP 4.6* -- 9.9* -- -- 14.2* < > = values in this interval not displayed. Imaging: MRI Pelvis IMPRESSION: Nonspecific edema like signal within the proximal adductor compartments may represent myositis versus low-grade strain; correlate with history. No discrete mass or marrow replacing lesion. MRI T/L spine Mild thoracic spondylosis without high-grade canal narrowing or cord compression, abnormal cord signal, or abnormal enhancement. Lumbar spondylosis as described worst at L4-5 with mild to moderate canal narrowing, and at L5-S1 with a right sided synovial cyst causing mild mass effect on the exiting (more content not included)... Normal [facility] CRP SerPl-mCncon 11-07-2021 CRP [Mass/Vol] 4.6 mg/dL High <0.9 [facility] Comment on above: Order Comment: Speci men Type: BLOOD SPECIMEN Ordering Facility: [facility] Address: [address] [place] [address] Performed By: #### 1 988-5 #### [facility] CLIA [id number] [address] [place] [address] [place] ALLIED HEALTHon 11-06-2021 ALLIED HEALTH HNO ID: [id number] Author: RT Krista(R) Service: Radiology Author Type: Technologist Type: Allied Health Filed: 11/05/2021 10:26 PM Note Text: Radiology Service Progress Note PATIENT NAME: Kenyetta Schumacher DATE OF SERVICE: November 05, 2021 TIME: 10:26 PM PATIENT IDENTITY VERIFICATION COMPLETED USING TWO (2) IDENTIFIERS: Name and Date of confirmed by patient verbally and Name and Date of confirmed by identification band. FALL SCREENING: Has the patient had 2 falls in the last year or 1 fall with injury or currently using an Ambulatory Assistive Device (Walker, Cane, Wheelchair, Crutches, etc.)? Inpatient: Screened on floor PATIENT GENDER DATA: Male PATIENT RELEVANT IMPLANT DATA REVIEWED: Yes RADIOLOGY DEPARTMENT: MR; Exam(s) Completed: Lower MSK: Pelvis, bilateral Spine: Thoracic spine and Lumbar spine PERIPHERAL IV DATA: Inpatient: see LDA documentation SIGNED BY: IESHA VelascoR) November 05, 2021 10:26 PM Normal [facility] Basic metabolic 2000 panelon 11-06-2021 Anion gap [Moles/Vol] 12 mmol/L Normal 9-18 [facility] Comment on above: Order Comment: Speci men Type: BLOOD SPECIMEN Ordering Facility: [facility] Address: [address] [place] [address] Performed By: #### 1 988-5 #### [facility] CLIA [id number] [address] [place] [address] [place] Calcium [Mass/Vol] 8.8 mg/dL Normal 8.5-10.2 [facility] Comment on above: Order Comment: Speci men Type: BLOOD SPECIMEN Ordering Facility: [facility] Address: [address] [place] [address] Performed By: #### 1 988-5 #### [facility] CLIA [id number] [address] [place] [address] [place] Chloride [Moles/Vol] 105 mmol/L Normal 97-105 [facility] Comment on above: Order Comment: Speci men Type: BLOOD SPECIMEN Ordering Facility: [facility] Address: [address] [place], [place] [address] Performed By: #### 1 988-5 #### [facility] CLIA [id number] [address] [place] [address] [place] CO2 [Moles/Vol] 23 mmol/L Normal 22-30 [facility] Comment on above: Order Comment: Speci men Type: BLOOD SPECIMEN Ordering Facility: [facility] Address: [address] [place], [place] [address] Performed By: #### 1 988-5 #### [facility] CLIA [id number] [address] [place] [address] [place] Creatinine [Mass/Vol] 2.03 mg/dL High 0.73-1.22 [facility] Comment on above: Order Comment: Misty avery Type: BLOOD SPECIMEN Ordering Facility: [facility] Address: [address] [place], [place] [id number] Performed By: #### 1 988-5 #### [facility] CLIA [id number] [address] [place] [address] [place] ESTIMATED GLOMERULAR FILTRATION RATE 36 mL/min/1.73m??? Low >=60 [facility] Comment on above: Order Comment: Misty avery Type: BLOOD SPECIMEN Ordering Facility: [facility] Address: [address] [place] [address] Result Comment: Sara mated Glomerular Filtration Rate (eGFR) is calculated using the 2020 CKD-EPI creatinine equation. This equation utilizes serum creatinine, sex, and age as parameters. The creatinine assay has traceable calibration to isotope dilution-mass spectrometry. Refer to KDIGO guidelines for clinical interpretation. In patients with unstable renal function, e.g. those with acute kidney injury, the eGFR may not accurately reflect actual GFR. Performed By: #### 1 988-5 #### [facility] CLIA [id number] [address] [place] [address] [place] Glucose [Mass/Vol] 114 mg/dL High 74-99 [facility] Comment on above: Order Comment: Misty bennie Type: BLOOD SPECIMEN Ordering Facility: [facility] Address: [address] [place] [address] Result Comment: The [place] Diabetes Association (ADA) provides guidance for cutoff values for fasting glucose and random glucose. The ADA defines fasting as no caloric intake for at least 8 hours. Fasting plasma glucose results between 100 to 125 mg/dL indicate increased risk for diabetes (prediabetes). Fasting plasma glucose results greater than or equal to 126 mg/dL meet the criteria for diagnosis of diabetes. In the absence of unequivocal hyperglycemia, results should be confirmed by repeat testing. In a patient with classic symptoms of hyperglycemia or hyperglycemic crisis, random plasma glucose results greater than or equal to 200 mg/dL meet the criteria for diagnosis of diabetes. Reference: Standards of Medical Care in Diabetes 2016, [place] Diabetes [employer]. Diabetes Care. 2016.39(Suppl 1). Performed By: #### 1 988-5 #### [facility] CLIA [id number] [address] [place] [address] [place] Potassium [Moles/Vol] 5.2 mmol/L High 3.7-5.1 [facility] Comment on above: Order Comment: Speci men Type: BLOOD SPECIMEN Ordering Facility: [facility] Address: [address] [place] [address] Performed By: #### 1 988-5 #### [facility] CLIA [id number] [address] [place] [address] [place] Sodium [Moles/Vol] 140 mmol/L Normal 136-144 [facility] Comment on above: Order Comment: Speci men Type: BLOOD SPECIMEN Ordering Facility: [facility] Address: [address] [place] [address] Performed By: #### 1 988-5 #### [facility] CLIA [id number] [address] [place] [address] [place] Urea nitrogen [Mass/Vol] 38 mg/dL High 9-24 [facility] Comment on above: Order Comment: Speci men Type: BLOOD SPECIMEN Ordering Facility: [facility] Address: [address] [place] [address] Performed By: #### 1 988-5 #### [facility] CLIA [id number] [address] [place] [address] [place] CASE MANAGEMon 11-06-2021 CASE MANAGEM HNO ID: [id number] Author: Galileo Rubalcava RN Service: ? Author Type: Registered Nurse Type: Care Mgt Progress Note Filed: 11/06/2021 2:09 PM Note Text: CARE MANAGEMENT WEEKEND PLANNING NOTE NO WEEKEND DISCHARGE Disposition: CASE MANAGMENT PROVIDER LIST: Home Care Anticipated Discharge Date: early next week Weekend Vessel [employer] Se[employer] Pager #: For weekend CM needs, please contact on-call CM at: G Building - [address] H Building - [address] J Building - [address] [facility] - [address] Needs accepting [facility], multiple referrals sent. SIGNATURE: Galileo Rubalcava RN PATIENT NAME: Kenyetta Schumacher DATE: November 06, 2021 TIME: 2:09 PM PAGER/CONTACT #: [phone] Normal [facility] CBC panel Auto (Bld)on 11-06 Erythrocyte distribution width (RBC) [Ratio] 14.4 % Normal 11.5-15.0 [facility] [facility] Comment on above: Order Comment: Speci men Type: BLOOD SPECIMENOrdering Facility: [facility] Address: [address] [place] [address] Performed By: #### 5 8410-2 ####[facility] [id number] [place] [address] [place] Hematocrit (Bld) [Volume fraction] 32.3 % Low 39.0-51.0 [facility] Comment on above: Order Comment: Speci men Type: BLOOD SPECIMENOrdering Facility: [facility] Address: [address] [place] [address] Performed By: #### 5 8410-2 ####[facility] LABIA [id number] [place] [address] [place] Hemoglobin (Bld) [Mass/Vol] 10.3 g/dL Low 13.0-17.0 [facility] Comment on above: Order Comment: Speci men Type: BLOOD SPECIMENOrdering Facility: [facility] Address: [address] [place] [address] Performed By: #### 5 8410-2 ####[facility] LABIA [id number] [place] [address] [place] MCH (RBC) [Entitic mass] 35.4 pg High 26.0-34.0 [facility] Comment on above: Order Comment: Speci men Type: BLOOD SPECIMENOrdering Facility: [facility] Address: [address] [place] [address] Performed By: #### 5 8410-2 ####[facility] LABIA [id number] [address] [place] [facility] MCHC (RBC) [Mass/Vol] 31.9 g/dL Normal 30.5-36.0 [facility] Comment on above: Order Comment: Speci men Type: BLOOD SPECIMENOrdering Facility: [facility] Address: [address] [place], [place] [id number] Performed By: #### 5 8410-2 ####[facility] LABIA [id number] [address] [place] MCV (RBC) [Entitic vol] 111.0 fL High 80.0-100.0 [facility] Comment on above: Order Comment: Speci men Type: BLOOD SPECIMENOrdering Facility: [facility] Address: [address] [place], [place] [id number] Performed By: #### 5 8410-2 ####[facility] LABIA [id number] [place] [address] [place] Nucleated RBC (Bld) [#/Vol] 10*3/uL Normal <0.01 [facility] Comment on above: Order Comment: Speci men Type: BLOOD SPECIMENOrdering Facility: [facility] Address: [address] [place] [id number] Performed By: #### 5 8410-2 ####[facility] LABIA [id number] [address] [place] Platelet mean volume (Bld) [Entitic vol] 9.5 fL Normal 9.0-12.7 [facility] Comment on above: Order Comment: Speci men Type: BLOOD SPECIMENOrdering Facility: [facility] Address: [address] [place], [place] [id number] Performed By: #### 5 8410-2 ####[facility] LABIA [id number] [place] [address] [place] Platelets (Bld) [#/Vol] 289 10*3/uL Normal 150-400 [facility] Comment on above: Order Comment: Speci men Type: BLOOD SPECIMENOrdering Facility: [facility] Address: [address] [place] [address] Performed By: #### 5 8410-2 ####[facility] LABCLIA [id number] [place] [address] [place] RBC (Bld) [#/Vol] 2.91 10*6/uL Low 4.20-6.00 [facility] Comment on above: Order Comment: Speci men Type: BLOOD SPECIMENOrdering Facility: [facility] Address: [address] [place] [address] Performed By: #### 5 8410-2 ####[facility] LABCLIA [id number] [place] [address] [place] [facility] WBC (Bld) [#/Vol] 5.43 10*3/uL Normal 3.70-11.00 [facility] Comment on above: Order Comment: Speci men Type: BLOOD SPECIMENOrdering Facility: [facility] Address: [address] [place] [address] Performed By: #### 5 8410-2 ####[facility] LABCLIA [id number] [place] [address] [place] CK CREATINE KINASEon 022 CK [Catalytic activity/Vol] 30 U/L Low 51-298 [facility] Comment on above: Order Comment: Speci men Type: BLOOD SPECIMENOrdering Facility: [facility] Address: [address] [place], [place] [address] Performed By: #### 2 284-8, CK, 15110-0 ####[facility] LABCLIA [id number] [place] [address] [place] CONSULT PROGon 11-06-2021 CONSULT PROG HNO ID: [id number] Author: Quinton Bhatt MD Service: Rheumatology Author Type: Physician Type: Consult Progress Note Filed: 11/06/2021 6:58 PM Note Text: Rheumatology Consult Progress Note Patient name: Kenyetta Schumacher Requesting provider: Hanny Alcala MD Reason for consult: Groin pain, back pain SUBJECTIVE Interval events: - pt feels symptomatically better. Able to walk with assistance - CRP down trending, ESR slightly lower - MRI T/L, pelvis findings noted. Medical History: PAST MEDICAL HISTORY Diagnosis Date - Adrenal nodule (HCC) - Primary hypertension - Prostate cancer (HCC) - Stage 3 chronic kidney disease (HCC) - Type 2 diabetes mellitus with other specified complication (HCC) History reviewed. No pertinent surgical history. Social History Tobacco Use - Smoking status: Not on file - Smokeless tobacco: Not on file Substance Use Topics - Alcohol use: Not on file - Drug use: Not on file No family history on file. ALLERGIES Allergen Reactions - Amino Acids Other: See Comments - Dextroamphetamine Other: See Comments - Losartan Other: See Comments - Simvastatin Other: See Comments Current Facility-Administered Medications Medication Dose Route Frequency - sodium chloride 0.9 % (flush) 3-5 mL (BD POSIFLUSH) 3-5 mL INTRAVENOUS q 12 H - NaCl 0.9% iv flush bag 20 mL INTRAVENOUS PRN - acetaminophen 650 mg tab(s) (TYLENOL) 650 mg ORAL q 6 H PRN - polyethylene glycol 3350 17 g packet (MIRALAX, GLYCOLAX) 17 g ORAL DAILY - heparin 5,000 Units injection 5,000 Units SUBCUTANEOUS q 12 H - oxyCODONE IR 5 mg tab(s) (ROXICODONE) 5 mg ORAL q 3 H PRN - lidocaine 4 % 1 Patch (SALONPAS) 1 Patch TRANSDERMAL DAILY AT 9 PM And - lidocaine patch - REMOVE OTHER DAILY And - lidocaine - VERIFY PATCH OTHER q 8 H - morphine 4 mg injection 4 mg INTRAVENOUS q 8 H PRN - sulfamethoxazole-trimethop rim 800-160 mg 1 tablet (BACTRIM DS,SEPTRA DS) 1 tablet ORAL q 12 H - dextrose 40 % 15 g 15 g ORAL PRN Or - glucagon 1 mg injection 1 mg INTRAMUSCULAR PRN Or - dextrose 50% in water 25 mL syringe 12.5 g INTRAVENOUS PRN - insulin lispro injection (rapid acting) (HumaLOG) SUBCUTANEOUS w MEALS AND HS - ondansetron orally disintegrating 4 mg tab(s) (ZOFRAN ODT) 4 mg ORAL q 6 H PRN Or - ondansetron (PF) 4 mg injection (ZOFRAN) 4 mg INTRAVENOUS q 6 H PRN - senna 8.6 mg tab(s) (SENOKOT) 8.6 mg ORAL BID Review of Systems: Positives in bold. GENERAL: weight loss, fevers, chills, or sweats. fatigue or lightheadedness RESPIRATORY: Cough, SOB, or wheezing CARDIOVASCULAR: Chest pain, leg swelling or palpitations GI: Nausea, vomiting, diarrhea, constipation, melena, hematochezia : Burning with urination, dysuria, hematuria SKIN: Rash OBJECTIVE 11/05/21 1951 11/06/21 0351 11/06/21 0811 11/06/21 1148 BP: 113/57 109/51 105/50 (!) 107/49 Pulse: 89 68 76 75 Resp: Temp: 36.4 ?C (97.5 ?F) 36.7 ?C (98.1 ?F) 36.2 ?C (97.2 ?F) 36.5 ?C (97.7 ?F) TempSrc: Oral Oral Oral Oral SpO2: 93% 94% 94% 93% Weight: Height: Intake/Output Summary (Last 24 hours) at 11/06/2021 1538 Last data filed at 11/06/2021 1400 Gross per 24 hour Intake 1010 ml Output 1900 ml Net -890 ml Exam: General Appearance: alert, in no acute distress Skin: Skin color, texture, turgor normal, no suspicious rashes or lesions Head: Normocephalic, atraumatic Eyes: Anicteric sclera. Pupils are equally round Oropharynx: Lips, mucosa, and tongue normal Lung: lungs clear to auscultation, no wheezing or rhonchi Heart: RRR without murmur, gallop, or rubs Abdomen: soft, non tender BS present. Abdomen mildly distended. Extremities: No deformities, edema, skin discoloration, clubbing or cyanosis Neuro: Grossly intact. : No scrotal tenderness or denis swelling. Back: TTP in the lower back at the midline. Hips: External rotation ROM intact. Limited ROM d/t pain with internal rotation/adduction bilaterally, overall improving. Recent Labs 11/06/21 0550 11/05/21 1223 11/05/21 1030 11/04/21 1422 11/04/21 1225 WBC 5.43 -- 8.50 9.33 8.95 HB 10.3* -- 10.7* 11.2* 12.5* HCT 32.3* -- 33.1* 33.5* 37.8* PLT 289 -- 322 297 310 NA 140 137 138 -- 139 K 5.2* 5.3* 5.5* -- 4.9 CHLOR 105 104 105 -- 106* CO2 23 18* 19* -- 21* CREAT 2.03* 1.97* 1.97* -- 1.80* BUN 38* 40* 38* -- 44* GLUC 114* 137* 164* -- 135* TPROT -- -- -- -- 7.7 ALB -- -- -- -- 4.3 CA 8.8 9.5 9.2 -- 9.6 ALKPHOS -- -- -- -- 61 TBILI -- -- -- -- 0.3 AST -- -- -- -- 10* ALT -- -- -- -- 16 CRP -- 9.9* -- -- 14.2* Imaging: MRI Pelvis IMPRESSION: Nonspecific edema like signal within the proximal adductor compartments may represent myositis versus low-grade strain; correlate with history. No discrete mass or marrow replacing lesion. MRI T/L spine Mild thoracic spondylosis without high-grade canal narrowing or cord compression, abnormal cord signal, or abnormal enhanc (more content not included)... Normal [facility] ESR Westergren method (Bld) [Velocity]on 11-06-2021 ESR (Bld) [Velocity] 114 mm/h High 0-15 [facility] Comment on above: Order Comment: Speci men Type: BLOOD SPECIMEN [facility]: [facility] Address: [address] [place] [phone] Performed By: #### 1 988-5 #### [facility] CLIA [id number] [address] [place] [address] [place] [address] [place] Folate SerPl-mCncon 11-07-19 Folate [Mass/Vol] 11.6 ng/mL Normal >4.7 [facility] Comment on above: Order Comment: Speci men Type: BLOOD SPECIMEN [facility] Address: [address] [place] [address] Performed By: #### 1 988-5 #### [facility] CLIA [id number] [address] [place] [address] [place] [address] [place] MRI LUMBAR SPINE WO/W IVCONo n 11-06-2021 MRI LUMBAR SPINE WO/W IVCON * * *Final Report* * * DATE OF EXAM: Nov 05 2021 10:50PM QBM 0304 - MRI LUMBAR SPINE WO/W IVCON / PROCEDURE REASON: Back pain, cancer or infection suspected * * * * Physician Interpretation * * * * EXAMINATION: MRI THORACIC SPINE WO/W IVCON, MRI LUMBAR SPINE WO/W IVCON CLINICAL HISTORY: Back pain, cancer or infection suspected TECHNIQUE: Routine lumbosacral and thoracic spine MR protocol without and with intravenous gadolinium. MQ: [id number] Contrast: Dotarem. Contrast Dose: 20 cc Route of Administration: IV COMPARISON: CT abdomen and pelvis 10/07/21 RESULT: THORACIC: Counting reference: Lumbosacral junction. For the purposes of this report, L4-5 is considered the level of the iliac crest and assume there are 5 lumbar-type vertebrae. Anatomic variant: None. Localizer images: There is a T2 intermediate lesion in the midpole the right kidney, measuring up to 1.5 cm, with intermediate Hounsfield units. This may be due to hemorrhagic cyst. Consider follow-up MRI of the kidneys without and with contrast for further evaluation if clinically indicated. Alignment: Alignment is anatomic. Cord: The thoracic spinal cord is within normal limits of signal intensity and morphology. No abnormal cord or leptomeningeal enhancement. Bone marrow signal/fracture: No evidence of pathologic marrow infiltration. No evidence of prior fracture. Thoracic soft tissues: The paraspinal soft tissues are within normal limits. Canal and foramina: Central disc protrusion at T6-T7 causes mild canal narrowing and abuts the ventral cord without cord compression. Minimal disc bulges are also noted at T2-T3 and T5-T6. The thoracic canal and foramina are otherwise patent within the constraints of the study. LUMBAR: Counting reference: Lumbosacral junction. For the purposes of this report, L4-5 is considered the level of the iliac crest and assume there are 5 lumbar-type vertebrae. Anatomic variant: None. Localizer images: No significant findings. Alignment: Alignment is anatomic. Bone marrow signal/fracture: No evidence of pathologic marrow infiltration. No evidence of prior fracture. Conus: The conus is within normal limits of signal intensity and morphology. No abnormal leptomeningeal enhancement. Paraspinal soft tissues: Paraspinal soft tissues are within normal limits. T12-L1: Canal and foramina are patent. L1-L2: Canal and foramina are patent. L2-L3: Canal and foramina are patent. Facet arthropathy is noted. L3-L4: There is disc degeneration with diffuse disc bulge and facet arthropathy accentuated by epidural lipomatosis causing mild canal narrowing, and mild bilateral foraminal stenosis. L4-L5: There is disc degeneration with diffuse disc bulge and facet arthropathy accentuated by epidural lipomatosis causing mild to moderate canal narrowing, without significant foraminal stenosis. L5-S1: There is disc degeneration with mild diffuse disc bulge and facet arthropathy, without significant canal narrowing. There is a right-sided synovial cyst as seen on image 21 of series 22 measuring up to 4 mm which causes moderate to severe right foraminal stenosis with mild mass effect on the exiting right L5 nerve root. Sacrum and iliac wings: The visualized sacrum and iliac wings are within normal limits. The presacral soft tissues are normal in appearance. IMPRESSION: Mild thoracic spondylosis without high-grade canal narrowing or cord compression, abnormal cord signal, or abnormal enhancement. Lumbar spondylosis as described worst at L4-5 with mild to moderate canal narrowing, and at L5-S1 with a right sided synovial cyst causing mild mass effect on the exiting right L5 nerve root. No abnormal laryngeal enhancement. T2 intermediate lesion in the midpole the right kidney, and retrospect had intermediate attenuation on the recent CT abdomen and pelvis, measuring up to 1.5 cm. While this may be due to a hemorrhagic cyst, consider follow-up renal ultrasound for further evaluation if clinically indicated. Anatomic Thoracic/Lumbar Variant: None. L4-5 is considered the level of the iliac crest and assume there are 5 lumbar-type vertebrae. ACTIONABLE RESULT: FOLLOW-UP Acuity: Actionable Findings: Kidneys/Ureters/Bladder Routing Code: GU_1 Recommendation: US KIDNEY/BLADDER Time Frame: At the discretion of the clinical team. COMMUNICATION: Results will be communicated with the ordering provider via [employer] staff message or phone message by [facility] within 2 business days of report finalization. Algorithms for management of incidental imaging findings can be found on the [facility] Intranet Sharepoint site at: [email or web address]%20Findi ngs%20at%20Imaging/Forms/A llItems.aspx Security Assessor: KAHLIL Transcribe Date/Time: Nov 05 2021 10:51P Dictated by : KATIE (more content not included)... Invalid Interpretation Code [facility] MRI PELVIS ORTHO GEN WO/W IV CONon 11-06-2021 MRI PELVIS ORTHO GEN WO/W IVCON * * *Final Report* * * DATE OF EXAM: Nov 05 2021 10:50PM QBM 0230 - MRI PELVIS ORTHO GEN WO/W IVCON / PROCEDURE REASON: Joint pain, hip * * * * Physician Interpretation * * * * EXAMINATION: MRI PELVIS ORTHO GEN WO/W IVCON HISTORY: Joint pain, hip . History of prostate cancer. assess the pelvic musculature and bony structures TECHNIQUE: Routine multiplanar MRI of the pelvis without and with contrast; 20 Dotarem IV COMPARISON: CT abdomen pelvis dated 11/04/2021. RESULT: Bone Marrow: No fractures or suspicious marrow replacing lesions. Hip joints: Large [id number] images of the hips are unremarkable. Evaluation of articular cartilage and labrum is limited. Sacroiliac joints: Within normal limits. Pubic symphysis: Minimal edema like signal, possibly mechanical/degenerative. Tendons: The iliopsoas, hamstring, gluteal, and rectus femoris tendons are intact. Muscles: Small amount of edema-like signal within the bilateral adductor compartments near the pubic symphysis origin. No focal fatty atrophy of the remaining musculature. Other: Postsurgical changes related to prostatectomy with foci of metallic artifact along the anterior pelvis. No discrete enhancing mass or fluid collection. Localizer images: No significant additional findings. IMPRESSION: Nonspecific edema like signal within the proximal adductor compartments may represent myositis versus low-grade strain; correlate with history. No discrete mass or marrow replacing lesion. Security Assessor: PSCDangelo Transcribe Date/Time: Nov 06 2021 7:55A Dictated by : QUINTON PELAEZ MD This examination was interpreted and the report reviewed and electronically signed by: SUSAN YI MD on Nov 06 2021 8:32AM EST [id number] Normal [facility] MRI THORACIC SPINE WO/W IVCO Non 11-06-2021 MRI THORACIC SPINE WO/W IVCON * * *Final Report* * * DATE OF EXAM: Nov 05 2021 10:50PM QBM 0326 - MRI THORACIC SPINE WO/W IVCON / PROCEDURE REASON: Back pain, cancer or infection suspected * * * * Physician Interpretation * * * * EXAMINATION: MRI THORACIC SPINE WO/W IVCON, MRI LUMBAR SPINE WO/W IVCON CLINICAL HISTORY: Back pain, cancer or infection suspected TECHNIQUE: Routine lumbosacral and thoracic spine MR protocol without and with intravenous gadolinium. MQ: [id number]_3 Contrast: Dotarem. Contrast Dose: 20 cc Route of Administration: IV COMPARISON: CT abdomen and pelvis 10/07/21 RESULT: THORACIC: Counting reference: Lumbosacral junction. For the purposes of this report, L4-5 is considered the level of the iliac crest and assume there are 5 lumbar-type vertebrae. Anatomic variant: None. Localizer images: There is a T2 intermediate lesion in the midpole the right kidney, measuring up to 1.5 cm, with intermediate Hounsfield units. This may be due to hemorrhagic cyst. Consider follow-up MRI of the kidneys without and with contrast for further evaluation if clinically indicated. Alignment: Alignment is anatomic. Cord: The thoracic spinal cord is within normal limits of signal intensity and morphology. No abnormal cord or leptomeningeal enhancement. Bone marrow signal/fracture: No evidence of pathologic marrow infiltration. No evidence of prior fracture. Thoracic soft tissues: The paraspinal soft tissues are within normal limits. Canal and foramina: Central disc protrusion at T6-T7 causes mild canal narrowing and abuts the ventral cord without cord compression. Minimal disc bulges are also noted at T2-T3 and T5-T6. The thoracic canal and foramina are otherwise patent within the constraints of the study. LUMBAR: Counting reference: Lumbosacral junction. For the purposes of this report, L4-5 is considered the level of the iliac crest and assume there are 5 lumbar-type vertebrae. Anatomic variant: None. Localizer images: No significant findings. Alignment: Alignment is anatomic. Bone marrow signal/fracture: No evidence of pathologic marrow infiltration. No evidence of prior fracture. Conus: The conus is within normal limits of signal intensity and morphology. No abnormal leptomeningeal enhancement. Paraspinal soft tissues: Paraspinal soft tissues are within normal limits. T12-L1: Canal and foramina are patent. L1-L2: Canal and foramina are patent. L2-L3: Canal and foramina are patent. Facet arthropathy is noted. L3-L4: There is disc degeneration with diffuse disc bulge and facet arthropathy accentuated by epidural lipomatosis causing mild canal narrowing, and mild bilateral foraminal stenosis. L4-L5: There is disc degeneration with diffuse disc bulge and facet arthropathy accentuated by epidural lipomatosis causing mild to moderate canal narrowing, without significant foraminal stenosis. L5-S1: There is disc degeneration with mild diffuse disc bulge and facet arthropathy, without significant canal narrowing. There is a right-sided synovial cyst as seen on image 21 of series 22 measuring up to 4 mm which causes moderate to severe right foraminal stenosis with mild mass effect on the exiting right L5 nerve root. Sacrum and iliac wings: The visualized sacrum and iliac wings are within normal limits. The presacral soft tissues are normal in appearance. IMPRESSION: Mild thoracic spondylosis without high-grade canal narrowing or cord compression, abnormal cord signal, or abnormal enhancement. Lumbar spondylosis as described worst at L4-5 with mild to moderate canal narrowing, and at L5-S1 with a right sided synovial cyst causing mild mass effect on the exiting right L5 nerve root. No abnormal laryngeal enhancement. T2 intermediate lesion in the midpole the right kidney, and retrospect had intermediate attenuation on the recent CT abdomen and pelvis, measuring up to 1.5 cm. While this may be due to a hemorrhagic cyst, consider follow-up renal ultrasound for further evaluation if clinically indicated. Anatomic Thoracic/Lumbar Variant: None. L4-5 is considered the level of the iliac crest and assume there are 5 lumbar-type vertebrae. ACTIONABLE RESULT: FOLLOW-UP Acuity: Actionable Findings: Kidneys/Ureters/Bladder Routing Code: GU_1 Recommendation: US KIDNEY/BLADDER Time Frame: At the discretion of the clinical team. COMMUNICATION: Results will be communicated with the ordering provider via [employer] staff message or phone message by [facility] within 2 business days of report finalization. Algorithms for management of incidental imaging findings can be found on the [facility] Intranet Sharepoint site at: [email or web address] [email or web address]%[email or web address]/A llItems.aspx Security Assessor: KAHLIL Transcribe Date/Time: Nov 05 2021 10:51P Dictated by : JANETTE (more content not included)... Invalid Interpretation Code [facility] THERAPY NTon 11-06-2021 THERAPY NT HNO ID: [id number] Author: Angela Velasquez OT/L Service: Occupational Therapy Author Type: Occupational Therapist Type: Therapy (PT/OT/Speech/Resp) Filed: 11/06/2021 1:58 PM Note Text: Occupational Therapy Treatment SERVICE DATE: 11/06/2021 SERVICE TIME: 1306 to 1347 ROOM: [place] [id number] Recommended Discharge Disposition: Home OT Recommended Discharge Disposition Comments: Once pt medically stable anticipate safe d/c to home with OT to further assess adaptive equipment needs, improve overall strength, and maximize IND with ADLs/IADLs. He may require assistance to complete IADLs due to pain. Pt could progress to outpatient OT services if pain is controlled. Pt is agreeable to plan. Anticipated Discharge Needs: Physical Assist at Home Physical Assist at Home for: Cleaning;Laundry;Meals;Gabriella f Care;Shopping;Transportati on OT 6 Clicks Score: 21 Precautions/Activity Restrictions: Fall Risk Current Hospital Course: 66 year old male here with chronic kidney disease, diabetes, hypertension on losartan, presenting with acute groin pain and back pain. Patient states approximately 10 days ago, started having mild left inguinal/groin pain. Over the left first 1 to 2 days, seem to worsen and spread to the right side as well. Went to outside ED, where CT scan and ultrasound were done, both unremarkable and discharged home. Return to ED several days after, his pain was significantly worse and having trouble ambulating as well. Repeat CT scan and ultrasound unremarkable. Did show hydroceles. Otherwise no acute emergent process on either imaging study. Was admitted at that time for MRI L-spine. MRI was negative as well for acute cord compression. Discharged home. These images were all completed yesterday. Now comes into the ED, stating he is still unable to walk and still has severe pain. States he has groin pain, that is radiating to his back. It is worsened significantly by walking, better with rest. States specifically has inner groin pain, that is worsened by adduction of the hips (bilat but worse on the left). No bowel or bladder incontinence. No sensation of urinary retention. No dysuria. Urinating normally. Normal bowel movements although recently has been constipated secondary to pain medication given at outside ED. Reason for Hospital Admission: back/groin pain Relevant Past Medical History: chronic kidney disease, diabetes, hypertension Response to Therapy Interventions: Good participation in activities, Improved tolerance for activity, On-track to achieve discharge goals, Low activity tolerance, Pain, Requires additional time to complete activities Occupational Therapy Problem List: Pain;Impaired Self Care;Decreased Activity Tolerance;Decreased Strength;Functional Mobility Impairment;Balance Impaired Treatment Interventions: Education;Self Care / Home Management;Functional Mobility Training;Balance Training;Joint Mobility Plan for next visit: Energy conservation, Exercise instruction/handout, Standing tolerance, Standing balance, Toileting instruction Home Environment Patient Lives With: Spouse Assistance Available: 24 Hour Entry To Home: Stairs Number Of Stairs Into Home: 2 Number Of Stairs To Bed/Bath: 0 Tub/Shower Type: tub shower on first floor; walk in shower in basement (pt typically uses walk in shower but is currently unable due to increased pain and decreased ability to ambulate) Laundry: in basement completes Equipment Owned: Rollator;Wheeled Walker;Wheelchair;Shower Chair;Hand Held Shower;Commode-3 in 1 Prior Functional Level: Within Functional Limits Prior Functional Level Comments: Pt reports he was IND with ADL/IADLs prior to increased levels of pain; he currently requires assitance to complete ADLs/IADLs due to limited functional mobility; driving; no falls; he reports walking with a rollator at home the past 10 days and resorted to using wheelchair as needed Patient Report: I still have a twing when I first stand CURRENT FUNCTIONAL STATUS: Most recent performance Current Activities of Daily Living Assist Level Additional Information Feeding Independent Grooming Set Up Bathing Upper Body Minimal Assistance Bathing Lower Body Maximal Assistance Dressing Upper Body Set Up Dressing Lower Body Minimal Assistance Toileting Stand By Assistance Instrumental Activities of Daily Living Assist Level Additional Information Meal/Beverage Prep Cleaning Laundry Medication Management with Strategies Functional Mobility Assist Level Additional Information Rolling Supine to Sit Independent Sit to Supine Minimal Assistance Scooting Independent Sit to Stand Stand By Assistance Stand to Sit Stand By Assistance Bed to Chair Stand By Assistance Stepping Wheeled Walker;Gait Belt Toilet/Commode Contact Guard Assistance Shower Functional Mobility Stand By Assistance Wheeled Walker Blank thorpe indicate activity not attempted Tra (more content not included)... Normal [facility] Basic metabolic 2000 panelon 11-05-2021 Anion gap [Moles/Vol] 15 mmol/L Normal 9-18 [facility] Comment on above: Order Comment: Speci men Type: BLOOD SPECIMENOrdering Facility: [facility] Address: [address] [place] [address] Performed By: #### Isaiah Corcoran, 45058-6, , 1987-12, B12 ####[facility] LABCLIA [id number] [place] [address] [place] Calcium [Mass/Vol] 9.5 mg/dL Normal 8.5-10.2 [facility] Comment on above: Order Comment: Speci men Type: BLOOD SPECIMENOrdering Facility: [facility] Address: [address] [place] [address] Performed By: #### Isaiah Corcoran, 87802-6, 26304-5, 1987-12, B12 ####[facility] LABCLIA [id number] [place] [address] [place] Chloride [Moles/Vol] 104 mmol/L Normal 97-105 [facility] Comment on above: Order Comment: Speci men Type: BLOOD SPECIMENOrdering Facility: [facility] Address: [address] [place] [address] Performed By: #### C K, 29737-4, 79520-5, 1987-12, B12 ####[facility] LABCLIA [id number] [address] [place] CO2 [Moles/Vol] 18 mmol/L Low 22-30 [facility] Comment on above: Order Comment: Speci men Type: BLOOD SPECIMENOrdering Facility: [facility] Address: [address] [place] [address] Performed By: #### C K, 21367-4, 09812-6, 1987-12, B12 ####[facility] LABIA [id number] [address] [place] Creatinine [Mass/Vol] 1.97 mg/dL High 0.73-1.22 [facility] Comment on above: Order Comment: Speci men Type: BLOOD SPECIMENOrdering Facility: [facility] Address: [address] [place] [address] Performed By: #### Isaiah K, 81010-6, , 1987-12, B12 ####[facility] LABIA [id number] [place] [address] [place] ESTIMATED GLOMERULAR FILTRATION RATE 37 mL/min/1.73m??? Low >=60 [facility] Comment on above: Order Comment: Speci men Type: BLOOD SPECIMENOrdering Facility: [facility] Address: [address] [place] [address] Result Comment: Sara mated Glomerular Filtration Rate (eGFR) is calculated using the 2020 CKD-EPI creatinine equation. This equation utilizes serum creatinine, sex, and age as parameters. The creatinine assay has traceable calibration to isotope dilution-mass spectrometry. Refer to KDIGO guidelines for clinical interpretation. In patients with unstable renal function, e.g. those with acute kidney injury, the eGFR may not accurately reflect actual GFR. Performed By: #### Isaiah Corcoran, 38610-3, , 1987-12, B12 ####[facility] LABCLIA [id number] [address] [address] [place] Glucose [Mass/Vol] 137 mg/dL High 74-99 [facility] Comment on above: Order Comment: Misty avery Type: BLOOD SPECIMENOrdering Facility: [facility] Address: [address] [place] [address] Result Comment: The [place] Diabetes Association (ADA) provides guidance for cutoff values for fasting glucose and random glucose. The ADA defines fasting as no caloric intake for at least 8 hours. Fasting plasma glucose results between 100 to 125 mg/dL indicate increased risk for diabetes (prediabetes). Fasting plasma glucose results greater than or equal to 126 mg/dL meet the criteria for diagnosis of diabetes. In the absence of unequivocal hyperglycemia, results should be confirmed by repeat testing. In a patient with classic symptoms of hyperglycemia or hyperglycemic crisis, random plasma glucose results greater than or equal to 200 mg/dL meet the criteria for diagnosis of diabetes. Reference: Standards of Medical Care in Diabetes 2016, [place] Diabetes Association. Diabetes Care. 2016.39(Suppl 1). Performed By: #### Isaiah Corcoran, 80988-1, , 1987-12, B12 ####[facility] LABCLIA [id number] [place] [id number] [place] Potassium [Moles/Vol] 5.3 mmol/L High 3.7-5.1 [facility] Comment on above: Order Comment: Misty avery Type: BLOOD SPECIMENOrdering Facility: [facility] Address: [address] [place] [address] Performed By: #### Isaiah Corcoran, 65229-2, , 1987-12, B12 ####[facility] LABCLIA [id number] [address] [address] [place] Sodium [Moles/Vol] 137 mmol/L Normal 136-144 [facility] Comment on above: Order Comment: Speci men Type: BLOOD SPECIMENOrdering Facility: [facility] Address: [address] [place] [address] Performed By: #### C Nilo, 81872-1, 62483-9, 1987-12, B12 ####[facility] LABCLIA [id number] [place] [address] [place] Urea nitrogen [Mass/Vol] 40 mg/dL High 9-24 [facility] Comment on above: Order Comment: Speci men Type: BLOOD SPECIMENOrdering Facility: [facility] Address: [address] [place], [place] [address] Performed By: #### Isaiah Corcoran, 52248-5, 16806-3, 1987-12, B12 ####[facility] LABCLIA [id number] [place] [address] [place] Anion gap [Moles/Vol] 14 mmol/L Normal 9-18 [facility] Comment on above: Order Comment: Speci men Type: BLOOD SPECIMENOrdering Facility: [facility] Address: [address] [place], [place] [address] Performed By: #### 2 4321-2 ####[facility] LABCLIA [id number] [place] [address] [place] Calcium [Mass/Vol] 9.2 mg/dL Normal 8.5-10.2 [facility] Comment on above: Order Comment: Speci men Type: BLOOD SPECIMENOrdering Facility: [facility] Address: [address] [place], [place] [address] Performed By: #### 2 4321-2 ####[facility] LABCLIA [id number] [place] [address] [place] Chloride [Moles/Vol] 105 mmol/L Normal 97-105 [facility] Comment on above: Order Comment: Speci men Type: BLOOD SPECIMENOrdering Facility: [facility] Address: [address] [place] [address] Performed By: #### 2 4321-2 ####[facility] LABCLIA [id number] [place] [address] [place] CO2 [Moles/Vol] 19 mmol/L Low 22-30 [facility] Comment on above: Order Comment: Speci men Type: BLOOD SPECIMENOrdering Facility: [facility] Address: [address] [place] [address] Performed By: #### 2 4321-2 ####[facility] LABIA [id number] [place] [address] [place] Creatinine [Mass/Vol] 1.97 mg/dL High 0.73-1.22 [facility] Comment on above: Order Comment: Speci men Type: BLOOD SPECIMENOrdering Facility: [facility] Address: [address] [place] [address] Performed By: #### 2 4321-2 ####[facility] LABIA [id number] [place] [address] [place] ESTIMATED GLOMERULAR FILTRATION RATE 37 mL/min/1.73m??? Low >=60 [facility] Comment on above: Order Comment: Speci men Type: BLOOD SPECIMENOrdering Facility: [facility] Address: [address] [place] [address] Result Comment: Sara mated Glomerular Filtration Rate (eGFR) is calculated using the 2020 CKD-EPI creatinine equation. This equation utilizes serum creatinine, sex, and age as parameters. The creatinine assay has traceable calibration to isotope dilution-mass spectrometry. Refer to KDIGO guidelines for clinical interpretation. In patients with unstable renal function, e.g. those with acute kidney injury, the eGFR may not accurately reflect actual GFR. Performed By: #### 2 4321-2 ####[facility] LABCLIA [id number] [place] [address] [place] Glucose [Mass/Vol] 164 mg/dL High 74-99 [facility] Comment on above: Order Comment: Speci men Type: BLOOD SPECIMENOrdering Facility: [facility] Address: [address] [place] [address] Result Comment: The [place] Diabetes Association (ADA) provides guidance for cutoff values for fasting glucose and random glucose. The ADA defines fasting as no caloric intake for at least 8 hours. Fasting plasma glucose results between 100 to 125 mg/dL indicate increased risk for diabetes (prediabetes). Fasting plasma glucose results greater than or equal to 126 mg/dL meet the criteria for diagnosis of diabetes. In the absence of unequivocal hyperglycemia, results should be confirmed by repeat testing. In a patient with classic symptoms of hyperglycemia or hyperglycemic crisis, random plasma glucose results greater than or equal to 200 mg/dL meet the criteria for diagnosis of diabetes. Reference: Standards of Medical Care in Diabetes 2016, [place] Diabetes Association. Diabetes Care. 2016.39(Suppl 1). Performed By: #### 2 4321-2 ####[facility] LABCLIA [id number] [place] [address] [place] Potassium [Moles/Vol] 5.5 mmol/L High 3.7-5.1 [facility] Comment on above: Order Comment: Speci men Type: BLOOD SPECIMENOrdering Facility: [facility] Address: [address] [place] [address] Performed By: #### 2 4321-2 ####[facility] LABCLIA [id number] [place] [address] [place] Sodium [Moles/Vol] 138 mmol/L Normal 136-144 [facility] Comment on above: Order Comment: Speci men Type: BLOOD SPECIMENOrdering Facility: [facility] Address: [address] [place] [address] Performed By: #### 2 4321-2 ####[facility] LABCLIA [id number] [place] [address] [place] Urea nitrogen [Mass/Vol] 38 mg/dL High 9-24 [facility] Comment on above: Order Comment: Speci men Type: BLOOD SPECIMENOrdering Facility: [facility] Address: [address] [place] [address] Performed By: #### 2 4321-2 ####[facility] LABCLIA [id number] [place] [address] [place] CBC panel Auto (Bld)on 11-05 Erythrocyte distribution width (RBC) [Ratio] 14.7 % Normal 11.5-15.0 [facility] Comment on above: Order Comment: Speci men Type: BLOOD SPECIMENOrdering Facility: [facility] Address: [address] [place] [address] Performed By: #### 5 8410-2 ####[facility] LABIA [id number] [place] [address] [place] Hematocrit (Bld) [Volume fraction] 33.1 % Low 39.0-51.0 [facility] Comment on above: Order Comment: Speci men Type: BLOOD SPECIMENOrdering Facility: [facility] Address: [address] [place] [address] Performed By: #### 5 8410-2 ####[facility] LABIA [id number] [place] [address] [place] Hemoglobin (Bld) [Mass/Vol] 10.7 g/dL Low 13.0-17.0 [facility] Comment on above: Order Comment: Speci men Type: BLOOD SPECIMENOrdering Facility: [facility] Address: [address] [place] [address] Performed By: #### 5 8410-2 ####[facility] LABIA [id number] [place] [address] [place] MCH (RBC) [Entitic mass] 35.3 pg High 26.0-34.0 [facility] Comment on above: Order Comment: Speci men Type: BLOOD SPECIMENOrdering Facility: [facility] Address: [address] [place], [place] [address] Performed By: #### 5 8410-2 ####[facility] LABIA [id number] [address] [place] [facility] MCHC (RBC) [Mass/Vol] 32.3 g/dL Normal 30.5-36.0 [facility] Comment on above: Order Comment: Speci men Type: BLOOD SPECIMENOrdering Facility: [facility] Address: [address] [place], [place] [address] Performed By: #### 5 8410-2 ####[facility] LABIA [id number] [place] [address] [place] MCV (RBC) [Entitic vol] 109.2 fL High 80.0-100.0 [facility] Comment on above: Order Comment: Speci men Type: BLOOD SPECIMENOrdering Facility: [facility] Address: [address] [place], [place] [address] Performed By: #### 5 8410-2 ####[facility] [id number] [place] [address] [place] Nucleated RBC (Bld) [#/Vol] 10*3/uL Normal <0.01 [facility] Comment on above: Order Comment: Speci men Type: BLOOD SPECIMENOrdering Facility: [facility] Address: [address] [place] [address] Performed By: #### 5 8410-2 ####[facility] LABIA [id number] [place] [address] [place] Platelet mean volume (Bld) [Entitic vol] 9.4 fL Normal 9.0-12.7 [facility] Comment on above: Order Comment: Speci men Type: BLOOD SPECIMENOrdering Facility: [facility] Address: [address] [place], [place] [address] Performed By: #### 5 8410-2 ####[facility] LABCLIA [id number] [place] [address] [place] Platelets (Bld) [#/Vol] 322 10*3/uL Normal 150-400 [facility] Comment on above: Order Comment: Speci men Type: BLOOD SPECIMENOrdering Facility: [facility] Address: [address] [place], [place] [address] Performed By: #### 5 8410-2 ####[facility] LABCLIA [id number] [place] [address] [place] RBC (Bld) [#/Vol] 3.03 10*6/uL Low 4.20-6.00 [facility] Comment on above: Order Comment: Speci men Type: BLOOD SPECIMENOrdering Facility: [facility] Address: [address] [place] [address] Performed By: #### 5 8410-2 ####[facility] LABCLIA [id number] [place] [address] [place] WBC (Bld) [#/Vol] 8.50 10*3/uL Normal 3.70-11.00 [facility] Comment on above: Order Comment: Speci men Type: BLOOD SPECIMENOrdering Facility: [facility] Address: [address] [place], [place] [address] Performed By: #### 5 8410-2 ####[facility] LABCLIA [id number] [address] STATES OF [facility] CK CREATINE KINASEon 022 CK [Catalytic activity/Vol] 36 U/L Low 51-298 [facility] Comment on above: Order Comment: Speci men Type: BLOOD SPECIMENOrdering Facility: [facility] Address: [address] [place], [place] [address] Performed By: #### C K, 41700-3, 28246-3, 1987-, B12 ####[facility] LABCLIA [id number] [place] [id number] [place] CONSULTon 11-05-2021 CONSULT HNO ID: [id number] Author: Quinton Bhatt MD Service: Rheumatology Author Type: Physician Type: Consults Filed: 11/05/2021 5:22 PM Note Text: Rheumatology Consult History AND Physical Patient name: Kenyetta Schumacher Requesting provider: Hanny Alcala MD Reason for consult: Groin pain, back pain SUBJECTIVE History of Present Illness: This is a 66 year old male with PMHx of HTN, CKD 3, diabetes, prostate cancer, left adrenal nodule, nicotine dependence, bilateral hydroceles, who presented to the ER on 11/04 with groin pain and back pain with inability to ambulate, found to have R epididymitis with elevated inflammatory markers, admitted for further mgmt. Rheumatology consulted to assist with diagnosis and management of the same. Per admission HANDP:? He first developed bilateral groin pain 10 days ago, while he was seated, worse on the left, for which he was evaluated in [facility] ER on 10/28/21. CT A/P WO contrast and MRI lumbar spine with no definitive diagnosis. Revealed only constipation and minimal disc desiccation L4-L5. Scrotal US with small b/l septated debris-filled hydroceles, moderate sized left varicocele. No evidence of testicular torsion or epididymoorchitis. CRP was normal at that time. ? He reports inability to walk since then, he has been having to use a walker, whereas previously walked without support. Also reports mid-lower back pain, denies radicular symptoms. Denies dysuria, frequency, urgency, fever/ chills, saddle anesthesia, sensory loss, paresthesia, penile discharge. Has been having constipation and small amount of urine incontinence. Denies risk factors for STI, monogamous with . ? ED course HDS, afebrile, on RA ? CBC without leukocytosis, mild anemia, MCV 109 sCr 1.8 (baseline sCr 1.6-1.8. sCr 2 on 10/28/21), BUN 44 HCO3 21 CRP 14.2 ESR 117 UA with 2+ protein and 1-2 casts, otherwise negative UCx in process CT A/P w/ IV contrast - no acute process. Small 1.8cm left adrenal nodule, likely adenoma. US scrotum showing right epididymitis. Normal blood flow. Started on bactrim and admitted. On interview, pt is AOx3 in NAD; HDS on RA. Reports the history above. He indicates that he feels that he is already improving since he was started on abx. Last sexual encounter 4 months ago, monogamous with . No hx of STI. Main issue is bilateral groin pain and across to his pubic bone that shoots to his lower back, only upon attempt to stand/walk. No pain when lying in bed or sitting, only with weight bearing. All his sx started 10 days ago, entirely in his usual state of health prior. Denies weight loss, poor appetite, joint pain, skin rash, oral/genital ulcers, scrotal pain, urinary or GI sx.UTD on colonoscopy (unremarkable per his report 3 years ago), PSA checks yearly with his PCP have been normal per patient. Former smoker, quit 12 years ago (1 PPD for ~30 years prior). Denies drug use or excessive drinking. 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 Medical History: PAST MEDICAL HISTORY Diagnosis Date - Adrenal nodule (HCC) - Primary hypertension - Prostate cancer (HCC) - Stage 3 chronic kidney disease (HCC) - Type 2 diabetes mellitus with other specified complication (HCC) History reviewed. No pertinent surgical history. Social History Tobacco Use - Smoking status: Not on file - Smokeless tobacco: Not on file Substance Use Topics - Alcohol use: Not on file - Drug use: Not on file No family history on file. ALLERGIES Allergen Reactions - Amino Acids Other: See Comments - Dextroamphetamine Other: See Comments - Losartan Other: See Comments - Simvastatin Other: See Comments Current Facility-Administered Medications Medication Dose Route Frequency - iv contrast (radiology procedure) INTRAVENOUS DIRECTED PRN - valsartan 160 mg tab(s) (DIOVAN) 160 mg ORAL DAILY - sodium chloride 0.9 % (flush) 3-5 mL (BD POSIFLUSH) 3-5 mL INTRAVENOUS q 12 H - NaCl 0.9% iv flush bag 20 mL INTRAVENOUS PRN - acetaminophen 650 mg tab(s) (TYLENOL) 650 mg ORAL q 6 H PRN - polyethylene glycol 3350 17 g packet (MIRALAX, GLYCOLAX) 17 g ORAL DAILY - heparin 5,000 Units injection 5,000 Units SUBCUTANEOUS q 12 H - oxyCODONE IR 5 mg tab(s) (ROXICODONE) 5 mg ORAL q 3 H PRN - lidocaine 4 % 1 Patch (SALONPAS) 1 Patch TRANSDERMAL DAILY AT 9 PM And - lidocaine patch - REMOVE OTHER DAILY And - lidocaine - VERIFY PATCH OTHER q 8 H - morphine 4 mg injection 4 mg INTRAVENOUS q 8 H PRN - sulfamethoxazole-trimethop rim 800-160 mg 1 tablet (BACTRIM DS,SEPTRA DS) 1 tablet ORAL q 12 H - dextrose 40 % 15 g 15 g ORAL PRN Or - glucagon 1 mg injection 1 mg INTRAMUSCULAR PRN Or - dextrose 50% in water 25 mL syringe 12.5 g INTRAVENOUS PRN - insulin lispro injection (rapid acting) (HumaLOG) SUBCUTANEOUS w MEALS AND HS - iv contrast (radiology procedure) INTRAVENOUS DIRECTED PRN - iv contrast (radiology procedure) INTRAVENOUS A (more content not included)... Normal [facility] CONSULT HNO ID: [id number] Author: Willie Foster MD Service: Urology Author Type: Physician Type: Consults Filed: 11/06/2021 12:04 PM Note Text: UROLOGY SERVICE CONSULT NOTE PATIENT NAME: Kenyetta Schumacher ASSESSMENT AND PLAN: Kenyetta Schumacher is a 66 year old male with a PMHx of HTN, T2DM, CKD, Prostate Ca s/p RALP (15 years ago, [place]) that presented to the ED with black and bilateral groin pain with ambulation. Urology is consulted regarding groin pain. Vital signs are stable. Labs without leukocytosis, hemoglobin stable, creatinine at 1.97 (unclear baseline). UA negative. Urine culture in process. US with mildly enlarged epididymis with increased flow. CT scan without hydronephrosis, no pelvic fluid collection. Recommendations - No urologic source to explain thoracic/lumbar/bilateral groin pain - No acute urological intervention - Suspect penis pain 2/2 referred pain from groin - Non-tender testes on physical exam and UA neg- no clinical suspicion for epididymitis at the moment - Recommend PT eval and pelvic floor physical therapy - APMS consult for pain management - Elevated Sed rate and CRP levels, along with degenerative bone changes - recommend Rheumatology consult To be discussed staff Dr. Foster. Plans are not considered final until note co-signed by Dr. Foster. HPI Kenyetta Schumacher is a 66 year old male with a PMHx of HTN, T2DM, CKD, Prostate Ca s/p RALP (15 years ago, [place]) that presented to the ED with black and bilateral groin pain with ambulation. Urology is consulted regarding groin pain. Pt refers that since last Tuesday he had left groin pain, like he pulled a muscle that gradually progressed to back pain and bilateral groin scrotal pain that radiates down tip of his penis. Pt refers he is s/p RALP 15 years ago and very happy with results. He has mild stress incontinence since surgery, otherwise voiding well with good stream. Denies UTIs, gross hematuria, dysuria, nephrolithiasis. All PSAs have been undetectable. No history of radiation. Pt has had constipation for the past week, but last bowel movement yesterday. Pain is 10/10 when ever he is weight baring, reliefs with rest. Refers nausea and feeling anxious when he has the pain. Otherwise denies fever, chills, penile discharge, foul-smelling urine. PAST MEDICAL HISTORY Diagnosis Date - Adrenal nodule (HCC) - Primary hypertension - Prostate cancer (HCC) - Stage 3 chronic kidney disease (HCC) - Type 2 diabetes mellitus with other specified complication (HCC) History reviewed. No pertinent surgical history. No family history on file. Social History Tobacco Use - Smoking status: Not on file - Smokeless tobacco: Not on file Substance Use Topics - Alcohol use: Not on file - Drug use: Not on file MEDICATIONS: Prior to Admission Medications: glipiZIDE (GLUCOTROL) 5 mg tablet Take 5 mg by mouth once daily. valsartan (DIOVAN) 160 mg tablet Take 160 mg by mouth once daily. Current Facility-Administered Medications Medication Dose Route Frequency - iv contrast (radiology procedure) INTRAVENOUS DIRECTED PRN - valsartan 160 mg tab(s) (DIOVAN) 160 mg ORAL DAILY - sodium chloride 0.9 % (flush) 3-5 mL (BD POSIFLUSH) 3-5 mL INTRAVENOUS q 12 H - NaCl 0.9% iv flush bag 20 mL INTRAVENOUS PRN - acetaminophen 650 mg tab(s) (TYLENOL) 650 mg ORAL q 6 H PRN - polyethylene glycol 3350 17 g packet (MIRALAX, GLYCOLAX) 17 g ORAL DAILY - heparin 5,000 Units injection 5,000 Units SUBCUTANEOUS q 12 H - oxyCODONE IR 5 mg tab(s) (ROXICODONE) 5 mg ORAL q 3 H PRN - lidocaine 4 % 1 Patch (SALONPAS) 1 Patch TRANSDERMAL DAILY AT 9 PM And - lidocaine patch - REMOVE OTHER DAILY And - lidocaine - VERIFY PATCH OTHER q 8 H - morphine 4 mg injection 4 mg INTRAVENOUS q 8 H PRN - sulfamethoxazole-trimethop rim 800-160 mg 1 tablet (BACTRIM DS,SEPTRA DS) 1 tablet ORAL q 12 H - dextrose 40 % 15 g 15 g ORAL PRN Or - glucagon 1 mg injection 1 mg INTRAMUSCULAR PRN Or - dextrose 50% in water 25 mL syringe 12.5 g INTRAVENOUS PRN - insulin lispro injection (rapid acting) (HumaLOG) SUBCUTANEOUS w MEALS AND HS - iv contrast (radiology procedure) INTRAVENOUS DIRECTED PRN - iv contrast (radiology procedure) INTRAVENOUS DIRECTED PRN ALLERGIES: Amino Acids, Dextroamphetamine, Losartan, and Simvastatin COMPLETE REVIEW OF SYSTEMS: GEN: (-)Fevers, weight loss CV: denies chest pain PULM: No cough or difficulty breathing GI: (+) constipation : See HPI HEME: no famhx of abnormal bleeding or bruising SKIN: (-)new rashes ID: (-)recent illness All other relevant ROS reviewed and otherwise negative unless documented above PHYSICAL EXAM: BP 123/57 Pulse 96 Temp 36.7 ?C (98.1 ?F) (Oral) Resp 17 Ht 175.3 cm (5' 9.02 ) Wt 106.9 kg (235 lb 10.8 oz) SpO2 94% BMI 34.79 kg/m? Gen: No apparent distress, well-nourishe (more content not included)... Normal [facility] CRP SerPl-ncon 11-05-2021 CRP [Mass/Vol] 9.9 mg/dL High <0.9 [facility] Comment on above: Order Comment: Speci men Type: BLOOD SPECIMENOrdering Facility: [facility] Address: [address] [place] [id number] Performed By: #### Isaiah Corcoran, 25333-7, 78189-8, 1987-12, B12 ####[facility] LABIA [id number] [place] [address] [place] Free PSA [Mass/Vol]on 2021 Free PSA/Total PSA [Mass fraction] Normal [facility] Comment on above: Order Comment: Speci men Type: BLOOD SPECIMENOrdering Facility: [facility] Address: [address] [place], [place] [id number] Result Comment: Perc ent free not reported when Total and/or Free PSA value is below the lower limit of detection. Unable to calculate because free PSA is below assay range of 0.02 ng/mL. Total and free PSA test methodology used is the Electrochemiluminescence Immunoassay by [employer]. Total or free PSA values by differing methodologies cannot be interchanged. The below table lists the probability of finding prostate cancer upon needle biopsy, for men 50 years or older and total PSA concentrations from 4.0-10.0 ng/mL. Results should be interpreted within the broader clinical context. Free PSA(%) 50-59 years 60-69 years >69 years <11 49.2% 57.5% 64.5% 11-18 26.9% 33.9% 40.8% 19-25 18.3% 23.9% 29.7% >25 9.1% 12.2% 15.8% Performed By: #### Isaiah Corcoran, 32590-8, 84716-0, 1987-12, B12 ####[facility] LABIA [id number] [place] [id number] [place] Prostate specific Ag [Mass/Vol] ng/mL Normal <2.60 [facility] Comment on above: Order Comment: Speci men Type: BLOOD SPECIMENOrdering Facility: [facility] Address: [address] [place] [address] Result Comment: Tota l PSA test methodology used is the Electrochemiluminescence Immunoassay by [employer]. Total PSA values by differing methodologies cannot be interchanged. Performed By: #### Isaiah Corcoran, 74620-8, 25683-6, 1988-5, B12 ####[facility] LABCLIA [id number] [address] [place] GC AMPLIFICATION, URINEon GC AMPLIFICATION, URINE GC AMPLIFICATION: Negative for Neisseria gonorrhoeae by amplification Normal [facility] Comment on above: Performed By: #### U GC ####[facility] LABCLIA [id number] [address] [place] GC/CHLAMYDIA AMPLIF, URINEon 11-05-2021 GC/CHLAMYDIA AMPLIF, URINE GC AMPLIFICATION: Negative for Neisseria gonorrhoeae by amplification CHLAMYDIA AMPLIFICATION: Negative for Chlamydia trachomatis by amplification Normal [facility] Comment on above: Performed By: #### U GCCT ####[facility] LABCLIA [id number] [address] [place] GC/CHLAMYDIA AMPLIF, URINE GC AMPLIFICATION: Negative for Neisseria gonorrhoeae by amplification CHLAMYDIA AMPLIFICATION: Negative for Chlamydia trachomatis by amplification Normal [facility] Comment on above: Performed By: #### U GCCT ####[facility] LABCLIA [id number] [address] [place] NURSING PROGon 11-05-2021 NURSING PROG HNO ID: [id number] Author: Lala Awad RN Service: Radiology Author Type: Registered Nurse Type: Nursing Progress Note Filed: 11/05/2021 9:03 PM Note Text: Radiology Service Progress Note DATE OF SERVICE: November 05, 2021 TIME: 9:03 PM PATIENT WEIGHT: 235LBS PATIENT IDENTITY VERIFICATION COMPLETED USING TWO (2) STANDARD IDENTIFIERS: Name and Date of confirmed by patient verbally and Name and Date of confirmed by identification band. FALL SCREENING: Has the patient had 2 falls in the last year or 1 fall with injury or currently using an Ambulatory Assistive Device (Walker, Cane, Wheelchair, Crutches, etc.)? Inpatient: Screened on floor PATIENT GENDER DATA: Male ALLERGIES: Reviewed and unchanged CONTRAST ALLERGY: No EXAM: MRI - CONTRAST TYPE: GROUP II IV SITE: Inpatient - refer to LDA documentation IV SITE APPEARANCE: Clean,Dry and Intact SIGNATURE: Lala Awad RN PATIENT NAME: Kenyetta Schumacher DATE: November 05, 2021 TIME: 9:03 PM [facility] NURSING PROG HNO ID: [id number] Author: Thais De La Vega RN Service: ? Author Type: Registered Nurse Type: Nursing Progress Note Filed: 11/04/2021 11:41 PM Note Text: Nursing Progress Note Patient Name: Kenyetta Schumacher Patient Location: [place] [address] Transfer Note: Patient transferred into room/unit h81-21 in stable condition. Actions taken: No futher actions taken at this time. Will continue to monitor and check with patient. This note was completed by: Thais De La Vega [facility] NURSING PROG HNO ID: [id number] Author: Val Bruce RN Service: Nursing Author Type: Registered Nurse Type: Nursing Progress Note Filed: 11/04/2021 10:31 PM Note Text: Nursing Progress Note Patient Name: Kenyetta Schumacher Patient Location: [place] [address]/[facility] Daily Note: 2212: Report given to Yandy PARHAM on 2229: Patient left unit at this time via wheelchair in stable condition. Patient transferred to H81-21 with all belongings. This note was completed by: Val Brcue [facility] THERAPY NTon 11-05-2021 THERAPY NT HNO ID: [id number] Author: Luis Carlos Maher PT Service: Physical Therapy Author Type: Physical Therapist Type: Therapy (PT/OT/Speech/Resp) Filed: 11/05/2021 11:43 AM Note Text: Physical Therapy Evaluation SERVICE DATE: 11/05/2021 SERVICE TIME: 1108 to 1132 [facility] Recommended Discharge Disposition: Home PT Recommended Discharge Disposition Comments: Pt appropriate for d/c to home PT with 24h physical assistance once medically ready - pt agreeable. Anticipated Discharge Needs: Physical Assist at Home Physical Assist at Home for: Cleaning;Laundry;Meals;Gabriella f Care;Shopping;Transportati on Recommended Discharge Equipment: No equipment needs anticipated PT 6 Clicks Score: 19 Precautions/Activity Restrictions: Fall Risk Current Hospital Course: 66 year old male here with chronic kidney disease, diabetes, hypertension on losartan, presenting with acute groin pain and back pain. Patient states approximately 10 days ago, started having mild left inguinal/groin pain. Over the left first 1 to 2 days, seem to worsen and spread to the right side as well. Went to outside ED, where CT scan and ultrasound were done, both unremarkable and discharged home. Return to ED several days after, his pain was significantly worse and having trouble ambulating as well. Repeat CT scan and ultrasound unremarkable. Did show hydroceles. Otherwise no acute emergent process on either imaging study. Was admitted at that time for MRI L-spine. MRI was negative as well for acute cord compression. Discharged home. These images were all completed yesterday. Now comes into the ED, stating he is still unable to walk and still has severe pain. States he has groin pain, that is radiating to his back. It is worsened significantly by walking, better with rest. States specifically has inner groin pain, that is worsened by adduction of the hips (bilat but worse on the left). No bowel or bladder incontinence. No sensation of urinary retention. No dysuria. Urinating normally. Normal bowel movements although recently has been constipated secondary to pain medication given at outside ED. Reason for Hospital Admission: back/groin pain Relevant Past Medical History: chronic kidney disease, diabetes, hypertension Response to Therapy Interventions: Good participation in activities, Low activity tolerance, Pain, Requires additional time to complete activities Continue skilled needs due to: Continued monitoring of vital signs during mobility required, Functional mobility/skill impairments, Safety concerns Physical Therapy Problem List: Pain;Safety Deficits;Impaired Self Care;Decreased Activity Tolerance;Decreased Range Of Motion;Decreased Strength;Functional Mobility Impairment;Balance Impaired;Education Deficit Treatment Interventions: Education;Self Care / Home Management;Energy Conservation Training;Joint Mobility;Strengthening;Fun ctional Mobility Training;Balance Training;Neuromuscular Re-education Plan for next visit: Gait training, Standing Balance, Standing Tolerance Home Environment Patient Lives With: Spouse Assistance Available: 24 Hour Entry To Home: Stairs Number Of Stairs Into Home: 2 Number Of Stairs To Bed/Bath: 0 Tub/Shower Type: tub shower on first floor; walk in shower in basement (pt typically uses walk in shower but is currently unable due to increased pain and decreased ability to ambulate) Laundry: in basement completes Equipment Owned: Rollator;Wheeled Walker;Wheelchair;Shower Chair;Hand Held Shower;Commode-3 in 1 Prior Functional Level: Within Functional Limits Prior Functional Level Comments: Pt reports he was IND with ADL/IADLs prior to increased levels of pain; he currently requires assitance to complete ADLs/IADLs due to limited functional mobility; driving; no falls; he reports walking with a rollator at home the past 10 days and resorted to using wheelchair as needed Patient Report: agreeable to Pt CURRENT FUNCTIONAL STATUS: Most recent performance Current Functional Mobility Assist Level Additional Information Rolling Stand By Assistance Supine to Sit Stand By Assistance (HOB elevated) Sit to Supine Stand By Assistance Scooting Stand By Assistance Sit to Stand Contact Guard Assistance Stand to Sit Contact Guard Assistance Bed to Chair Toilet/Commode Gait Contact Guard Assistance Gait Device: Wheeled Walker Gait Distance (feet): 2x20' Stairs Curb Step Car Transfer Blank thorpe indicate activity not attempted General Deviations/Observations: Naty decreased;Difficulty changing direction/turning;Flexed trunk posture;Step length decreased;UE weight bearing on assistive device excessive JH-HLM: 6: Walk 10 steps or more Learning/Educational Needs: Discharge Plan;Equipment;Family Education/Training;Functio nal Activities/Mobility;Plan of Care;PT In-Hospital Exercise Program;Rehabilitation Techniques and Procedures;Safety Goals for Plan of Care: (more content not included)... Normal [facility] THERAPY NT HNO ID: [id number] Author: Luis Carlos Maher, PT Service: Physical Therapy Author Type: Physical Therapist Type: Therapy (PT/OT/Speech/Resp) Filed: 11/05/2021 10:04 AM Note Text: PHYSICAL THERAPY MISSED VISIT SERVICE DATE: 11/05/2021 SERVICE TIME: 1003 to 1003 ROOM: [place] [address] Patient not seen due to Illness (per OT and RN pt having N/V d/t back pain from ambulating). Will re-attempt as appropriate/able. SIGNATURE: Luis Carlos Maher PT PATIENT NAME: Kenyetta Schumacher DATE: November 05, 2021 TIME: 10:04 AM Normal [facility] THERAPY NT HNO ID: [id number] Author: Angela Velasquez OT/L Service: Occupational Therapy Author Type: Occupational Therapist Type: Therapy (PT/OT/Speech/Resp) Filed: 11/05/2021 9:33 AM Note Text: Occupational Therapy Evaluation SERVICE DATE: 11/05/2021 SERVICE TIME: 0807 to 0916 ROOM: [place] [address] Recommended Discharge Disposition: Home OT Recommended Discharge Disposition Comments: Once pt medically stable anticipate safe d/c to home with OT to further assess adaptive equipment needs, improve overall strength, and maximize IND with ADLs/IADLs. He may require assistance to complete IADLs due to pain. Pt could progress to outpatient OT services if pain is controlled. Pt is agreeable to plan. Anticipated Discharge Needs: Physical Assist at Home Physical Assist at Home for: Cleaning;Laundry;Meals;Tra nsportation;Shopping;Self Care OT 6 Clicks Score: 19 Precautions/Activity Restrictions: Fall Risk Current Hospital Course: 66 year old male here with chronic kidney disease, diabetes, hypertension on losartan, presenting with acute groin pain and back pain. Patient states approximately 10 days ago, started having mild left inguinal/groin pain. Over the left first 1 to 2 days, seem to worsen and spread to the right side as well. Went to outside ED, where CT scan and ultrasound were done, both unremarkable and discharged home. Return to ED several days after, his pain was significantly worse and having trouble ambulating as well. Repeat CT scan and ultrasound unremarkable. Did show hydroceles. Otherwise no acute emergent process on either imaging study. Was admitted at that time for MRI L-spine. MRI was negative as well for acute cord compression. Discharged home. These images were all completed yesterday. Now comes into the ED, stating he is still unable to walk and still has severe pain. States he has groin pain, that is radiating to his back. It is worsened significantly by walking, better with rest. States specifically has inner groin pain, that is worsened by adduction of the hips (bilat but worse on the left). No bowel or bladder incontinence. No sensation of urinary retention. No dysuria. Urinating normally. Normal bowel movements although recently has been constipated secondary to pain medication given at outside ED. Reason for Hospital Admission: back/groin pain Relevant Past Medical History: chronic kidney disease, diabetes, hypertension Response to Therapy Interventions: Good participation in activities, Low activity tolerance, Multiple ongoing medical issues, Pain, Requires additional time to complete activities Assessment Comments: Pt completed functional mobility this AM from EOB>bathroom>chair. Pain increased with functional mobility and pt became nauseated due to increased pain. Continue skilled needs due to: Functional impairment, Safety concerns Occupational Therapy Problem List: Pain;Impaired Self Care;Decreased Activity Tolerance;Decreased Strength;Functional Mobility Impairment;Balance Impaired Cognition/Communication Deficits Responsiveness: Alert, Awake Follows Commands: 3-step Commands Cognitive Clinical Tests and Screens: 4AT Screening 4AT Screening Is there any confusion or change in mental status or behavior in the last 2 weeks?: No Assess alertness (ask patient to state their name and address): Normal (fully alert, but not agitated, throughout assessment) Ask patient: age, date of , current year, and current location: No mistakes Ask patient to tell me the months of the year backwards order, starting with July : Able to state 7+ months correctly Acute change or fluctuating mental status: No 4AT Score: 0 Delirium Positive/Negative: Negative Treatment Interventions: Education;Self Care / Home Management;Joint Mobility;Functional Mobility Training;Balance Training Plan for next visit: Chair/commode transfer training, Energy conservation, Equipment needed (specify), Exercise instruction/handout, Sit to stand transfers, Standing balance, Standing tolerance, Toileting instruction, Dressing training Home Environment Patient Lives With: Spouse Assistance Available: 24 Hour Entry To Home: Stairs Number Of Stairs Into Home: 2 Number Of Stairs To Bed/Bath: 0 Tub/Shower Type: tub shower on first floor; walk in shower in basement (pt typically uses walk in shower but is currently unable due to increased pain and decreased ability to ambulate) Laundry: in basement completes Equipment Owned: Rollator;Wheeled Walker;Wheelchair;Shower Chair;Hand Held Shower;Commode-3 in 1 Prior Functional Level: Within Functional Limits Prior Functional Level Comments: Pt reports he was IND with ADL/IADLs prior to increased levels of pain; he currently requires assitance to complete ADLs/IADLs due to limited functional mobility; driving; no falls; he reports walking with a rollator at home the past 10 days and resorted to using wheelchair as n (more content not included)... Normal [facility] VITAMIN B12 BLOODon 11-06-19 22 Cobalamin (Vitamin B12) [Mass/Vol] 483 pg/mL Normal 232-1,245 [facility] Comment on above: Order Comment: Speci men Type: BLOOD SPECIMENOrdering Facility: [facility] Address: [address] [place], [place] [id number] Performed By: #### C K, 23864-7, 81763-0, 1987-12, B12 ####[facility] LABCLIA [id number] [place] [address] [place] Bacteria Bld Culton 11-05-19 22 Bacteria identified Cx Nom (Bld) CULTURE, BLOOD: No growth 5 days Normal [facility] Comment on above: Performed By: #### 6 00-7 ####[facility] LABCLIA [id number] [place] [address] [place] Bacteria Ur Culton 2 Bacteria identified Cx Nom (U) CULTURE, URINE: No growth (<1,000 CFU/ml) Normal [facility] Comment on above: Performed By: #### 6 30-4 ####[facility] LABCLIA [id number] [place] [address] [place] CBC panel Auto (Bld)on 11-04 Erythrocyte distribution width (RBC) [Ratio] 14.5 % Normal 11.5-15.0 [facility] Comment on above: Order Comment: Speci men Type: BLOOD SPECIMEN Ordering Facility: [facility] Address: [address] [place] [address] Performed By: #### 1 988-5 #### [facility] CLIA [id number] [address] [place] [address] [place] Hematocrit (Bld) [Volume fraction] 33.5 % Low 39.0-51.0 [facility] Comment on above: Order Comment: Speci men Type: BLOOD SPECIMEN Ordering Facility: [facility] Address: [address] [place], [place] [id number] Performed By: #### 1 988-5 #### [facility] CLIA [id number] [address] [place] [address] [place] Hemoglobin (Bld) [Mass/Vol] 11.2 g/dL Low 13.0-17.0 [facility] Comment on above: Order Comment: Speci men Type: BLOOD SPECIMEN Ordering Facility: [facility] Address: [address] [place], [place] [id number] Performed By: #### 1 988-5 #### [facility] CLIA [id number] [address] [place] [address] [place] MCH (RBC) [Entitic mass] 36.4 pg High 26.0-34.0 [facility] Comment on above: Order Comment: Speci men Type: BLOOD SPECIMEN Ordering Facility: [facility] Address: [address] [place], [place] [id number] Performed By: #### 1 988-5 #### [facility] CLIA [id number] [address] [place] [address] [place] MCHC (RBC) [Mass/Vol] 33.4 g/dL Normal 30.5-36.0 [facility] Comment on above: Order Comment: Speci men Type: BLOOD SPECIMEN Ordering Facility: [facility] Address: [address] [place], [place] [address] Performed By: #### 1 988-5 #### [facility] CLIA [id number] [address] [place] [address] [place] MCV (RBC) [Entitic vol] 108.8 fL High 80.0-100.0 [facility] Comment on above: Order Comment: Speci men Type: BLOOD SPECIMEN Ordering Facility: [facility] Address: [address] [place], [place] [address] Performed By: #### 1 988-5 #### [facility] CLIA [id number] [address] [place] [address] [place] Nucleated RBC (Bld) [#/Vol] 10*3/uL Normal <0.01 [facility] Comment on above: Order Comment: Speci men Type: BLOOD SPECIMEN Ordering Facility: [facility] Address: [address] [place], [place] [id number] Performed By: #### 1 988-5 #### [facility] CLIA [id number] [address] [place] [address] [place] Platelet mean volume (Bld) [Entitic vol] 9.5 fL Normal 9.0-12.7 [facility] Comment on above: Order Comment: Speci men Type: BLOOD SPECIMEN Ordering Facility: [facility] Address: [address] [place] [address] Performed By: #### 1 988-5 #### [facility] CLIA [id number] [address] [place] [address] [place] Platelets (Bld) [#/Vol] 297 10*3/uL Normal 150-400 [facility] Comment on above: Order Comment: Speci men Type: BLOOD SPECIMEN Ordering Facility: [facility] Address: [address] [place] [address] Performed By: #### 1 988-5 #### [facility] CLIA [id number] [address] [place] [address] [place] RBC (Bld) [#/Vol] 3.08 10*6/uL Low 4.20-6.00 [facility] Comment on above: Order Comment: Speci men Type: BLOOD SPECIMEN Ordering Facility: [facility] Address: [address] [place] [address] Performed By: #### 1 988-5 #### [facility] CLIA [id number] [address] [place] [address] [place] WBC (Bld) [#/Vol] 9.33 10*3/uL Normal 3.70-11.00 [facility] Comment on above: Order Comment: Speci men Type: BLOOD SPECIMEN Ordering Facility: [facility] Address: [address] [place] [address] Performed By: #### 1 988-5 #### [facility] CLIA [id number] [address] [place] [address] [place] Erythrocyte distribution width (RBC) [Ratio] 14.6 % Normal 11.5-15.0 [facility] Comment on above: Order Comment: Speci men Type: BLOOD SPECIMENOrdering Facility: [facility] Address: [address] [place] [address] Performed By: #### 5 8410-2 ####[facility] [id number] [place] [address] [place] Hematocrit (Bld) [Volume fraction] 37.8 % Low 39.0-51.0 [facility] Comment on above: Order Comment: Speci men Type: BLOOD SPECIMENOrdering Facility: [facility] Address: [address] [place], [place] [address] Performed By: #### 5 8410-2 ####[facility] [id number] [place] [address] [place] Hemoglobin (Bld) [Mass/Vol] 12.5 g/dL Low 13.0-17.0 [facility] Comment on above: Order Comment: Speci men Type: BLOOD SPECIMENOrdering Facility: [facility] Address: [address] [place], [place] [address] Performed By: #### 5 8410-2 ####[facility] [id number] [address] MCH (RBC) [Entitic mass] 36.0 pg High 26.0-34.0 [facility] Comment on above: Order Comment: Speci men Type: BLOOD SPECIMENOrdering Facility: [facility] Address: [address] [place], [place] [address] Performed By: #### 5 8410-2 ####[facility] [id number] [address] [place] MCHC (RBC) [Mass/Vol] 33.1 g/dL Normal 30.5-36.0 [facility] Comment on above: Order Comment: Speci men Type: BLOOD SPECIMENOrdering Facility: [facility] Address: [address] [place], [place] [address] Performed By: #### 5 8410-2 ####[facility] [id number] [address] [place] MCV (RBC) [Entitic vol] 108.9 fL High 80.0-100.0 [facility] Comment on above: Order Comment: Speci men Type: BLOOD SPECIMENOrdering Facility: [facility] Address: [address] [place], [place] [address] Performed By: #### 5 8410-2 ####[facility] [id number] [address] [place] Nucleated RBC (Bld) [#/Vol] 10*3/uL Normal <0.01 [facility] Comment on above: Order Comment: Speci men Type: BLOOD SPECIMENOrdering Facility: [facility] Address: [address] [place], [place] [address] Performed By: #### 5 8410-2 ####[facility] [id number] [place] [address] [place] Platelet mean volume (Bld) [Entitic vol] 9.8 fL Normal 9.0-12.7 [facility] Comment on above: Order Comment: Speci men Type: BLOOD SPECIMENOrdering Facility: [facility] Address: [address] [place], [place] [address] Performed By: #### 5 8410-2 ####[facility] [id number] [place] [address] [place] Platelets (Bld) [#/Vol] 310 10*3/uL Normal 150-400 [facility] Comment on above: Order Comment: Speci men Type: BLOOD SPECIMENOrdering Facility: [facility] Address: [address] [place], [place] [address] Performed By: #### 5 8410-2 ####[facility] [id number] [place] [address] [place] RBC (Bld) [#/Vol] 3.47 10*6/uL Low 4.20-6.00 [facility] Comment on above: Order Comment: Speci men Type: BLOOD SPECIMENOrdering Facility: [facility] Address: [address] [place], [place] [address] Performed By: #### 5 8410-2 ####[facility] [id number] [place] [address] [place] WBC (Bld) [#/Vol] 8.95 10*3/uL Normal 3.70-11.00 [facility] Comment on above: Order Comment: Speci men Type: BLOOD SPECIMENOrdering Facility: [facility] Address: [address] [place], [place] [address] Performed By: #### 5 8410-2 ####[facility]CLIA [id number] [place] [id number] [place] CONSULTon 11-04-2021 CONSULT HNO ID: [id number] Author: Eugene Kaminski MD Service: Geriatrics Author Type: Physician Type: Consults Filed: 11/04/2021 6:52 PM Note Text: Geriatric Medicine Service: Emergency Department Evaluation Consultation requested by the Emergency Department, who will receive Geriatric Medicine recommendations by way of the electronic medical record HISTORY OF PRESENT ILLNESS - 66 years old gentleman with ?Essential hypertension?takes valsartan 160 mg every day ?Type 2 diabetes?previously it was diet controlled, 2 weeks ago was started on glipizide 5 mg every day, as per patient last hemoglobin A1c was 7.9. ?History of CA prostate?15 years ago had surgery ?Chronic kidney disease?as per patient is stable for last 4 years Concerns from Patient -patient is currently in ER with difficulty walking because of the pain in his groin area. Pain started in the left groin 10 days ago while he was sitting and since then it has been getting worse. Patient describes the pain as sharp going across his pelvis and in the back as well. Patient also complains of significant worsening of understanding. Patient has been to the emergency room twice and was admitted once. Patient has required oxycodone 5/325 every 8 hours for pain control, in addition diazepam and Robaxin was prescribed as well. Patient had work-up which included CT of abdomen pelvis, testicular ultrasound and MRI of LS-spine?which showed constipation and a minimal L4-L5 disc disease. Concerns from Emergency Department -mobility limitation Social History/ Social Support: What is your living situation?: Family If you are living at home, do you have any assistance?: Yes Insurance/ACO - Insurance: Payor: [employer] / Plan: C[employer] OAP / Product Type: Open Access / Previous Admissions: Any admissions or ED visits in the last six months?: Yes Number of admissions or ED visits in the last six months: 2 Mobility: Number of falls in the past 12 months: 0 Amount of physical activity: Fair to good prior to the pain started Medications: Number of medications: less than 5 medications Patient is compliant with medications?: Yes Functional Evaluation: (I= independent, A= assistance, D= dependent) ? B-ADLs: Bathing: I, Dressing: I, Toileting: I, Transferring: I, Continence: I, Feeding: I (Carmen Index): 6 I-ADLs: Ability to use phone: I, Shopping: I, Cooking: I, Housekeeping: I, Laundry: I, Transportation: I, Medications: I, Handle Finances: I (Ledy scale): 8 Cognitive Status: No concerns Depression: No flowsheet data found. No concerns Weight Loss: Weight loss is present?: No Current appetite: Good The patient's allergies, current medications, past medical history, past surgical history, social history, and family history have been reviewed with the patient and have been updated as appropriate. Please see the relevant sections in [facility] EHR for appropriate details. ALLERGIES Allergen Reactions - Amino Acids Other: See Comments - Dextroamphetamine Other: See Comments - Losartan Other: See Comments - Simvastatin Other: See Comments Current Facility-Administered Medications Medication Dose Route Frequency - iv contrast (radiology procedure) INTRAVENOUS DIRECTED PRN No current outpatient medications on file. History reviewed. No pertinent past medical history. In addition please see HPI History reviewed. No pertinent surgical history. In addition please see HPI Social History Tobacco Use - Smoking status: Not on file - Smokeless tobacco: Not on file Substance Use Topics - Alcohol use: Not on file - Drug use: Not on file Smoking - Denies No family history on file. Dementia - Denies Review of Systems: Constipation, diarrhea, or change in bowel habits: Reports Incontinence: Denies Sleep difficulties: Denies Dizziness/ headache: Denies Weakness: Denies Vision difficulties: Denies Hearing difficulties: Denies Chewing or swallowing difficulties: Denies Dyspnea: Denies Edema: Denies Chest pain: Denies Abdominal pain: Denies Back pain: Reports The remainder of the review of systems as above is negative. Diagnostic Evaluation: Glucose (mg/dL) Date Value 11/04/2021 135 Potassium (mmol/L) Date Value 11/04/2021 4.9 Sodium (mmol/L) Date Value 11/04/2021 139 Chloride (mmol/L) Date Value 11/04/2021 106 CO2 (mmol/L) Date Value 11/04/2021 21 Creatinine (mg/dL) Date Value 11/04/2021 1.80 BUN (mg/dL) Date Value 11/04/2021 44 Anion Gap (mmol/L) Date Value 11/04/2021 12 Calcium, Total (mg/dL) Date Value 11/04/2021 9.6 Protein, Total (g/dL) Date Value 11/04/2021 7.7 Albumin (g/dL) Date Value 11/04/2021 4.3 Bilirubin, Total (mg/dL) Date Value 11/04/2021 0.3 Alkaline Phosphatase (U/L) Date Value 11/04/2021 61 AST (U/L) Date Value 11/04/2021 10 ALT (U/L) Date Value 11/04/2021 16 CBC: Hemoglobin (g/dL) Date Value (more content not included)... Normal [facility] CRP SerPl-mCncon 11-04-2021 CRP [Mass/Vol] 14.2 mg/dL High <0.9 [facility] Comment on above: Order Comment: Speci men Type: BLOOD SPECIMENOrdering Facility: [facility] Address: [address] [place] [address] Performed By: #### 2 4323-8, 1987-12 ####[facility] [id number] [address] [place] CT ABD/PEL W IVCONon 022 CT ABD/PEL W IVCON * * *Final Report* * * DATE OF EXAM: Nov 04 2021 3:11PM [facility] 0530 - CT ABD/PEL W IVCON / PROCEDURE REASON: Abd pain, diverticulitis suspected * * * * Physician Interpretation * * * * EXAMINATION: CT ABDOMEN AND PELVIS WITH IV CONTRAST CLINICAL HISTORY: Presenting with groin and back pain, reportedly evaluated at outside hospital with no findings. TECHNIQUE: CT of the abdomen and pelvis was performed using standard technique, scanning from just above the dome of the diaphragm to the symphysis pubis. MQ: CTAP_3 Contrast: IV: 150 ml of Omnipaque 300 CT Radiation dose: Integrated Dose-length product (DLP) for this visit = 1132 mGy*cm. CT Dose Reduction Employed: Automated exposure control (AEC) COMPARISON: None. RESULT: Liver: No mass. Biliary: No bile duct dilation. Gallbladder is unremarkable. Spleen: No mass. No splenomegaly. Pancreas: No mass or duct dilation. Adrenals: * 1.8 cm LEFT adrenal nodule (2:40). * No RIGHT adrenal mass Kidneys: Cyst measuring up to 3.6 cm in the right lower pole. Additional subcentimeter low-attenuation lesions are too small to characterize but likely benign. No calculus or hydronephrosis. GI tract: No dilation or wall thickening. Normal appendix. Lymph nodes: No abdominal or pelvic lymphadenopathy. Mesentery/Peritoneum: No ascites or mass. Retroperitoneum: No mass. Bilateral iliopsoas are unremarkable. Vasculature: - Abdominal aorta and iliac arteries: Atherosclerotic calcifications without aneurysm. - Celiac and SMA: Patent without stenosis. - Portal venous system (SMV, splenic vein, portal vein and branches): Patent. - Hepatic veins: Patent. Pelvis: No mass, ascites or fluid collection. Bones/Soft Tissues: Degenerative changes. Lower thorax: Calcified granuloma in the left lower lobe. Core Winding Operator (topogram) images: No additional findings. IMPRESSION: NO ACUTE PROCESS. SMALL LEFT ADRENAL NODULE LIKELY AN ADENOMA. Security Assessor: PSCDangelo Transcribe Date/Time: Nov 04 2021 3:18P Dictated by : DEMI JOHNSTON, This examination was interpreted and the report reviewed and electronically signed by: KODI MOORE MD on Nov 04 2021 3:32PM EST [id number] Normal [facility] Comprehensive metabolic 2000 panelon 11-04-2021 Albumin [Mass/Vol] 4.3 g/dL Normal 3.9-4.9 [facility] Comment on above: Order Comment: Speci men Type: BLOOD SPECIMENOrdering Facility: [facility] Address: [address] [place] [address] Performed By: #### 2 1987-12 ####[facility] [id number] [facility] [place] [address] [place] ALP [Catalytic activity/Vol] 61 U/L Normal 38-113 [facility] Comment on above: Order Comment: Speci men Type: BLOOD SPECIMENOrdering Facility: [facility] Address: [address] [place] [address] Performed By: #### 2 1987-12 ####[facility]IA [id number] [place] [id number] [place] ALT [Catalytic activity/Vol] 16 U/L Normal 10-54 [facility] Comment on above: Order Comment: Speci men Type: BLOOD SPECIMENOrdering Facility: [facility] Address: [address] [place], [place] [address] Performed By: #### 2 4323-03, 1987-12 ####[facility]CLIA [id number] [place] [address] [place] Anion gap [Moles/Vol] 12 mmol/L Normal 9-18 [facility] Comment on above: Order Comment: Speci men Type: BLOOD SPECIMENOrdering Facility: [facility] Address: [address] [place] [address] Performed By: #### 2 4323-03, 1987-12 ####[facility]CLIA [id number] [place] [address] [place] AST [Catalytic activity/Vol] 10 U/L Low 14-40 [facility] Comment on above: Order Comment: Speci men Type: BLOOD SPECIMENOrdering Facility: [facility] Address: [address] [place], [place] [address] Performed By: #### 2 4323-03, 1987-12 ####[facility]CLIA [id number] [place] [address] [place] Bilirubin [Mass/Vol] 0.3 mg/dL Normal 0.2-1.3 [facility] Comment on above: Order Comment: Speci men Type: BLOOD SPECIMENOrdering Facility: [facility] Address: [address] [place] [address] Performed By: #### 2 43211-03, 1987-12 ####[facility]CLIA [id number] [place] [address] [place] Calcium [Mass/Vol] 9.6 mg/dL Normal 8.5-10.2 [facility] Comment on above: Order Comment: Speci men Type: BLOOD SPECIMENOrdering Facility: [facility] Address: [address] [place], [place] [id number] Performed By: #### 2 4323-03, 1987-12 ####[facility]CLIA [id number] [facility] [place] [address] [place] Chloride [Moles/Vol] 106 mmol/L High 97-105 [facility] Comment on above: Order Comment: Speci men Type: BLOOD SPECIMENOrdering Facility: [facility] Address: [address] [place], [place] [address] Performed By: #### 2 4323-03, 1987-12 ####[facility]CLIA [id number] [place] [address] [place] CO2 [Moles/Vol] 21 mmol/L Low 22-30 [facility] Comment on above: Order Comment: Speci men Type: BLOOD SPECIMENOrdering Facility: [facility] Address: [address] [place], [place] [address] Performed By: #### 2 4323-03, 1987-12 ####[facility]CLIA [id number] [place] [address] [place] Creatinine [Mass/Vol] 1.80 mg/dL High 0.73-1.22 [facility] Comment on above: Order Comment: Speci men Type: BLOOD SPECIMENOrdering Facility: [facility] Address: [address] [place] [address] Performed By: #### 2 4323-03, 1987-12 ####[facility]CLIA [id number] [place] [address] [place] ESTIMATED GLOMERULAR FILTRATION RATE 41 mL/min/1.73m??? Low >=60 [facility] Comment on above: Order Comment: Speci men Type: BLOOD SPECIMENOrdering Facility: [facility] Address: [address] [place] [address] Result Comment: Sara mated Glomerular Filtration Rate (eGFR) is calculated using the 2020 CKD-EPI creatinine equation. This equation utilizes serum creatinine, sex, and age as parameters. The creatinine assay has traceable calibration to isotope dilution-mass spectrometry. Refer to KDIGO guidelines for clinical interpretation. In patients with unstable renal function, e.g. those with acute kidney injury, the eGFR may not accurately reflect actual GFR. Performed By: #### 2 4323-03, 1987-12 ####[facility] LABIA [id number] [place] [address] [place] Glucose [Mass/Vol] 135 mg/dL High 74-99 [facility] Comment on above: Order Comment: Specjoe avery Type: BLOOD SPECIMENOrdering Facility: [facility] Address: [address] [place] [address] Result Comment: The [place] Diabetes Association (ADA) provides guidance for cutoff values for fasting glucose and random glucose. The ADA defines fasting as no caloric intake for at least 8 hours. Fasting plasma glucose results between 100 to 125 mg/dL indicate increased risk for diabetes (prediabetes). Fasting plasma glucose results greater than or equal to 126 mg/dL meet the criteria for diagnosis of diabetes. In the absence of unequivocal hyperglycemia, results should be confirmed by repeat testing. In a patient with classic symptoms of hyperglycemia or hyperglycemic crisis, random plasma glucose results greater than or equal to 200 mg/dL meet the criteria for diagnosis of diabetes. Reference: Standards of Medical Care in Diabetes 2016, [place] Diabetes Association. Diabetes Care. 2016.39(Suppl 1). Performed By: #### 2 4323-03, 1987-12 ####[facility] LABIA [id number] [place] [id number] [place] Potassium [Moles/Vol] 4.9 mmol/L Normal 3.7-5.1 [facility] Comment on above: Order Comment: Specjoe men Type: BLOOD SPECIMENOrdering Facility: [facility] Address: [address] [place] [id number] Performed By: #### 2 4323-03, 1987-12 ####[facility] LABCLIA [id number] [place] [address] [place] Protein [Mass/Vol] 7.7 g/dL Normal 6.3-8.0 [facility] Comment on above: Order Comment: Speci men Type: BLOOD SPECIMENOrdering Facility: [facility] Address: [address] [place] [address] Performed By: #### 2 43211-03, 1987-12 ####[facility] LABCLIA [id number] [place] [address] [place] Sodium [Moles/Vol] 139 mmol/L Normal 136-144 [facility] Comment on above: Order Comment: Speci men Type: BLOOD SPECIMENOrdering Facility: [facility] Address: [address] [place] [address] Performed By: #### 2 43211-03, 1987-12 ####[facility] LABCLIA [id number] [place] [address] [place] Urea nitrogen [Mass/Vol] 44 mg/dL High 9-24 [facility] Comment on above: Order Comment: Speci men Type: BLOOD SPECIMENOrdering Facility: [facility] Address: [address] [place] [address] Performed By: #### 2 43211-03, 1987-12 ####[facility] LABIA [id number] [place] [id number] [place] ED NOTEon 11-04-2021 ED NOTE HNO ID: [id number] Author: Sylvia Bull RN Service: ? Author Type: Registered Nurse Type: ED Notes Filed: 11/04/2021 7:51 PM Note Text: Report to Brett HEIN [facility] ED NOTE HNO ID: [id number] Author: Simón Yoder RN Service: Emergency Medicine Author Type: Registered Nurse Type: ED Notes Filed: 11/04/2021 10:05 AM Note Text: Pt presented to ED for back and groin pain. Pt states I was seen for this and they did scans, but they can't figure out what is going on . NAD noted at this time. Normal [facility] ED PROV NOTEon 11-04-2021 ED PROV NOTE HNO ID: [id number] Author: Eugene Seo MD Service: Emergency Medicine Author Type: Physician Type: ED Provider Notes Filed: 11/04/2021 7:00 PM Note Text: ED Provider Note Patient Name: Kenyetta Schumacher : 1955 SERVICE DATE: 11/04/21 History Patient presents with: Groin Pain Back Pain HPI 66 year old male here with chronic kidney disease, diabetes, hypertension on losartan, presenting with acute groin pain and back pain. Patient states approximately 10 days ago, started having mild left inguinal/groin pain. Over the left first 1 to 2 days, seem to worsen and spread to the right side as well. Went to outside ED, where CT scan and ultrasound were done, both unremarkable and discharged home. Return to ED several days after, his pain was significantly worse and having trouble ambulating as well. Repeat CT scan and ultrasound unremarkable. Did show hydroceles. Otherwise no acute emergent process on either imaging study. Was admitted at that time for MRI L-spine. MRI was negative as well for acute cord compression. Discharged home. These images were all completed yesterday. Now comes into the ED, stating he is still unable to walk and still has severe pain. States he has groin pain, that is radiating to his back. It is worsened significantly by walking, better with rest. States specifically has inner groin pain, that is worsened by adduction of the hips (bilat but worse on the left). No bowel or bladder incontinence. No sensation of urinary retention. No dysuria. Urinating normally. Normal bowel movements although recently has been constipated secondary to pain medication given at outside ED. No chest pain or shortness of breath. No fevers or chills. PMH: as above Meds: Losartan No family history on file. Social History Tobacco Use - Smoking status: Not on file - Smokeless tobacco: Not on file Substance and Sexual Activity - Alcohol use: Not on file - Drug use: Not on file - Sexual activity: Not on file ALLERGIES Allergen Reactions - Amino Acids Other: See Comments - Dextroamphetamine Other: See Comments - Losartan Other: See Comments - Simvastatin Other: See Comments Review of Systems Constitutional: Negative for fever. Respiratory: Negative for shortness of breath. Cardiovascular: Negative for chest pain. Gastrointestinal: Positive for constipation. Negative for abdominal pain. Genitourinary: See hpi Musculoskeletal: Positive for back pain. Negative for neck pain and neck stiffness. Skin: Negative for rash and wound. Neurological: Negative for headaches. All other systems reviewed and are negative. Physical Exam Vitals [11/04/21 0958] BP Pulse Temp Temp src Resp SpO2 Weight Height 143/77 (!) 99 36.6 ?C (97.8 ?F) Oral 18 95 % 105.7 kg (233 lb) 1.753 m (5' 9 ) Physical Exam Vitals reviewed. Constitutional: General: He is not in acute distress. Appearance: He is not toxic-appearing. Eyes: Conjunctiva/sclera: Conjunctivae normal. Cardiovascular: Rate and Rhythm: Normal rate. Pulses: Normal pulses. Pulmonary: Effort: No respiratory distress. Breath sounds: Normal breath sounds. No wheezing. Abdominal: General: There is no distension. Palpations: Abdomen is soft. Tenderness: There is no abdominal tenderness. There is no guarding or rebound. Genitourinary: Comments: Testes nontender. Scrotum nontender, not erythematous. No inguinal hernia noted. Musculoskeletal: Cervical back: Neck supple. Legs: Comments: Mild tenderness over bilateral vastus medialis tendons, at the site of insertion. Abduction of the thighs well-tolerated bilaterally, but significant pain with abduction of the thighs (left greater than right). Distal pulses intact, no leg edema noted. No calf tenderness. Cap refill normal. C-spine nontender in the midline or paraspinal regions. L-spine nontender in the midline or paraspinal regions. Significant T-spine tenderness in the area of T9-T10 in the midline. No rashes. Neurological: Mental Status: He is alert. Comments: Awake, alert, appropriately oriented. Intact strength and sensation in all 4 extremities. Normal speech. Psychiatric: Mood and Affect: Mood normal. Diagnostic Testing ED Labs Ordered and Reviewed CBC - Abnormal; Notable for the following components: Result Value Ref Range RBC 3.47 (*) 4.20 - 6.00 m/uL Hemoglobin 12.5 (*) 13.0 - 17.0 g/dL Hematocrit 37.8 (*) 39.0 - 51.0 % MCV 108.9 (*) 80.0 - 100.0 fL MCH 36.0 (*) 26.0 - 34.0 pg All other components within normal limits COMP METABOLIC PANEL - Abnormal; Notable for the following components: AST 10 (*) 14 - 40 U/L Glucose 135 (*) 74 - 99 mg/dL BUN 44 (*) 9 - 24 mg/dL Creatinine 1.80 (*) 0.73 - 1.22 mg/dL Chloride 106 (*) 97 - 105 mmol/L CO2 21 (*) 22 - 30 mmol/L Estimated Glomerular Filtration Rate 41 (*) >=60 mL/min/1.73m? All other components within normal limits U (more content not included)... Normal [facility] ESR Westergren method (Bld) [Velocity]on 11-04-2021 ESR (Bld) [Velocity] 117 mm/h High 0-15 [facility] Comment on above: Order Comment: Speci men Type: BLOOD SPECIMENOrdering Facility: [facility] Address: [address] [place] [address] Performed By: #### 4 537-7 ####[facility] LABCLIA [id number] [address] STATES OF [facility] HISTORY PHYSICALon 2 HISTORY PHYSICAL HNO ID: [id number] Author: Beverly Noel MD Service: Hospital Medicine Author Type: Physician Type: HANDP Filed: 11/04/2021 9:32 PM Note Text: DEPARTMENT OF HOSPITAL MEDICINE HISTORY AND PHYSICAL EXAM SERVICE DATE: 11/04/2021 SERVICE TIME: 6:10 PM Primary Care Physician: Shaikh Quinton MD NIGHT AND WEEKEND COVERAGE: For issues tonight, please page [phone]. After 7:30am please page updated treatment team in Epic. Subjective CHIEF COMPLAINT: groin pain HPI: This is a 66 year old male with PMHx of HTN, CKD 3, diabetes, prostate cancer, left adrenal nodule, nicotine dependence, bilateral hydroceles, who presents to the ER with groin pain. He first developed bilateral groin pain 10 days ago, while he was seated, worse on the left, for which he was evaluated in [facility]SH ER on 10/28/21. CT A/P WO contrast and MRI lumbar spine with no definitive diagnosis. Revealed only constipation and minimal disc desiccation L4-L5. Scrotal US with small b/l septated debris-filled hydroceles, moderate sized left varicocele. No evidence of testicular torsion or epididymoorchitis. CRP was normal at that time. He reports inability to walk since then, he has been having to use a walker, whereas previously walked without support. Also reports mid-lower back pain, denies radicular symptoms. Denies dysuria, frequency, urgency, fever/ chills, saddle anesthesia, sensory loss, paresthesia, penile discharge. Has been having constipation and small amount of urine incontinence. Denies risk factors for STI, monogamous with . ED course HDS, afebrile, on RA CBC without leukocytosis, mild anemia, MCV 109 sCr 1.8 (baseline sCr 1.6-1.8. sCr 2 on 10/28/21), BUN 44 HCO3 21 CRP 14.2 ESR 117 UA with 2+ protein and 1-2 casts, otherwise negative UCx in process CT A/P w/ IV contrast - no acute process. Small 1.8cm left adrenal nodule, likely adenoma. US scrotum showing right epididymitis. Normal blood flow. Given 500 LRB, IV morphine and bactrim PO. Admitted to [facility] for further management. PAST MEDICAL HISTORY Diagnosis Date - Adrenal nodule (HCC) - Primary hypertension - Prostate cancer (HCC) - Stage 3 chronic kidney disease (HCC) - Type 2 diabetes mellitus with other specified complication (HCC) History reviewed. No pertinent surgical history. No family history on file. Social History Tobacco Use - Smoking status: Not on file - Smokeless tobacco: Not on file Substance Use Topics - Alcohol use: Not on file - Drug use: Not on file MEDICATIONS: Reviewed glipiZIDE (GLUCOTROL) 5 mg tablet, Take 5 mg by mouth once daily. , Disp: , Rfl: valsartan (DIOVAN) 160 mg tablet, Take 160 mg by mouth once daily., Disp: , Rfl: ALLERGIES Allergen Reactions - Amino Acids Other: See Comments - Dextroamphetamine Other: See Comments - Losartan Other: See Comments - Simvastatin Other: See Comments REVIEW OF SYSTEM: Negative except for as given above in HPI Objective PHYSICAL EXAM: BP 140/57 Pulse 102 Temp (Src) 97.9 (Oral) Resp 19 Ht 5' 9.016 (1.75m) Wt 235 lb 10.8 oz (106.9kg) SpO2 95% BMI 34.79 kg/(m2). O2 Therapy: Room Air Physical Exam Performed: GENERAL: Alert, no distress, cooperative EYES: EOMI LUNGS: Lungs clear to auscultation, Good diaphragmatic excursion CARDIAC: Normal S1 and S2; no rubs, murmurs, or gallops ABDOMEN: Abdomen soft, non-tender, BS normal, No masses or organomegaly Genital exam: non tender groin, testes, scrotum, no penile discharge EXTREMITIES:no edema Back: TTP around T10 NEURO: AxOx3, Cranial nerves II-XII intact. LE: b/l foot strength 5/5, right leg flexion limited due to exacerbation of left groin pain, ext 5/5. Strength 5/5 left leg, though somewhat limited due to pain. No sensory deficit The remainder of the physical exam is noncontributory. Lines, Drains, and Airways Line Peripheral 11/04/21 1246 Right Antecubital 20 Gauge <1 day DATA: Diagnostic tests reviewed for today's visit: Most recent labs and imaging results. Assessment/Plan This is a 66 year old male with PMHx of HTN, CKD 3, diabetes, prostate cancer, left adrenal nodule, nicotine dependence, bilateral hydroceles, who presents to the ER with groin pain that started all of a sudden on 10/28/21. Denies LUTS except for small amount of urine leakage. Also has severe mid to lower back pain and inability to ambulate due to severe left groin pain on walking. Groin pain, L > R Right epididymitis Mid-lower back pain Inability to ambulate Presented to OSH ER on 10/28/21 with groin pain, workup at that time including CT A/P, MRI lumbar spine, scrotal US, CRP, UA were negative. Workup in ER today with US scrotum showing right epididimitis. CRP 14.2, ESR 117. No leukocytosis. Negative UA. CT A/P without acute process. Interesting he has pain in the left groin. Plan - continue empiric bactrim for epididymitis. Avoid FQ due to concern in ER for ?tendonitis (more content not included)... Normal [facility] NURSING PROGon 11-04-2021 NURSING PROG HNO ID: [id number] Author: Val Bruce, RN Service: Nursing Author Type: Registered Nurse Type: Nursing Progress Note Filed: 11/04/2021 8:35 PM Note Text: Nursing Progress Note Patient Name: Kenyetta Schumacher Patient Location: AT 005/ATU05 Transfer Note: Patient transferred into room/unit ATU-05 from ED Actions taken: bed in lowest position, call light within reach This note was completed by: Val Bruce [facility] SARS-CoV-2 RNA Resp Ql ANDREA+p robeon 11-04-2021 SARS-CoV-2 (COVID-19) RNA ANDREA+probe Ql (Resp) COVID 19 RESULT: SARS-CoV-2 (Agent of COVID-19) Not Detected by RT-PCR or equivalent method. This test has been authorized by FDA under an Emergency Use Authorization (EUA). [facility] Comment on above: Performed By: #### 9 4500-6 ####[facility] LABIA [id number] [place] [address] [place] US DOPPLER COMPLETEon 2021 US DOPPLER COMPLETE * * *Final Report* * * DATE OF EXAM: Nov 04 2021 2:58PM [facility] - US DOPPLER COMPLETE / PROCEDURE REASON: Pelvic pain, male * * * * Physician Interpretation * * * * EXAMINATION: SCROTAL ULTRASOUND WITH DOPPLER IMAGING CLINICAL HISTORY: Left groin and back pain TECHNIQUE: Sonography of the scrotal contents with color flow and spectral Doppler imaging of the testicular vasculature was performed. Images were obtained and stored in a permanent archive. M: USC_2 COMPARISON: None RESULT: RIGHT SCROTUM: Right testis: 4.3 x 2.2 x 3.1 cm. Homogeneous with no calcifications or mass. Normal intratesticular arterial and venous flow with normal spectral waveforms. Epididymis: Mildly enlarged along the body and tail with asymmetrically increased color Doppler flow. Hydrocele: physiologic fluid present Varicocele: absent LEFT SCROTUM: Left testis: 4.5 x 2.1 x 2.5 cm. Homogeneous with no calcifications or mass. Normal intratesticular arterial and venous flow with normal spectral waveforms. Epididymis: Normal. Vascular flow on Color Doppler is symmetric to the contralateral side. Hydrocele: none Varicocele: present IMPRESSION: Findings suggestive of right epididymitis. Small left varicocele. Normal sonographic appearance of the testes with normal arterial and venous flow. Security Assessor: KAHLIL Transcribe Date/Time: Nov 04 2021 3:11P Dictated by : DEMI JOHNSTON DO This examination was interpreted and the report reviewed and electronically signed by: ADALID EPPS MD on Nov 04 2021 3:19PM EST [id number] Normal [facility] US SCROTUM AND CONTENTSon US SCROTUM AND CONTENTS * * *Final Report* * * DATE OF EXAM: Nov 04 2021 2:50PM [facility] [place] [facility] - US SCROTUM AND CONTENTS / PROCEDURE REASON: Testicular torsion * * * * Physician Interpretation * * * * EXAMINATION: SCROTAL ULTRASOUND WITH DOPPLER IMAGING CLINICAL HISTORY: Left groin and back pain TECHNIQUE: Sonography of the scrotal contents with color flow and spectral Doppler imaging of the testicular vasculature was performed. Images were obtained and stored in a permanent archive. M: USC_2 COMPARISON: None RESULT: RIGHT SCROTUM: Right testis: 4.3 x 2.2 x 3.1 cm. Homogeneous with no calcifications or mass. Normal intratesticular arterial and venous flow with normal spectral waveforms. Epididymis: Mildly enlarged along the body and tail with asymmetrically increased color Doppler flow. Hydrocele: physiologic fluid present Varicocele: absent LEFT SCROTUM: Left testis: 4.5 x 2.1 x 2.5 cm. Homogeneous with no calcifications or mass. Normal intratesticular arterial and venous flow with normal spectral waveforms. Epididymis: Normal. Vascular flow on Color Doppler is symmetric to the contralateral side. Hydrocele: none Varicocele: present IMPRESSION: Findings suggestive of right epididymitis. Small left varicocele. Normal sonographic appearance of the testes with normal arterial and venous flow. Security Assessor: KAHLIL Transcribe Date/Time: Nov 04 2021 3:11P Dictated by : DEMI JOHNSTON DO This examination was interpreted and the report reviewed and electronically signed by: ADALID EPPS MD on Nov 04 2021 3:19PM EST [id number] Normal [facility] Urinalysis complete panel (U )on 11-04-2021 Bilirubin Ql (U) Negative Normal Negative [facility] Comment on above: Order Comment: Speci men Type: URINE SPECIMENOrdering Facility: [facility] Address: [address] [place] [address] Performed By: #### 2 4356-8 ####[facility] LABIA [id number] [place] [address] [place] Clarity (Unsp spec) Clear Normal Clear [facility] Comment on above: Order Comment: Speci men Type: URINE SPECIMENOrdering Facility: [facility] Address: [address] [place] [address] Performed By: #### 2 4356-8 ####[facility] LABCLIA [id number] [place] [address] [place] Color (U) Light Yellow Normal Yellow [facility] Comment on above: Order Comment: Speci men Type: URINE SPECIMENOrdering Facility: [facility] Address: [address] [address] Performed By: #### 2 4356-8 ####[facility] LABIA [id number] [place] [address] [place] Glucose Test strip (U) [Mass/Vol] Negative Normal Negative [facility] Comment on above: Order Comment: Speci men Type: URINE SPECIMENOrdering Facility: [facility] Address: [address] [address] Performed By: #### 2 4356-8 ####[facility] LABCLIA [id number] [place] [address] [place] Hemoglobin Ql (U) Negative Normal Negative [facility] Comment on above: Order Comment: Speci men Type: URINE SPECIMENOrdering Facility: [facility] Address: [address] [place], [place] [id number] Performed By: #### 2 4356-8 ####[facility] LABCLIA [id number] [place] [address] [place] Hyaline casts (Urine sed) [#/Area] 1-3 /LPF Abnormal 0 /LPF [facility] Comment on above: Order Comment: Speci men Type: URINE SPECIMENOrdering Facility: [facility] Address: [address] [place] [address] Performed By: #### 2 4356-8 ####[facility] LABCLIA [id number] [place] [address] [place] Ketones Ql (U) Negative Normal Negative [facility] Comment on above: Order Comment: Speci men Type: URINE SPECIMENOrdering Facility: [facility] Address: [address] [place], [place] [id number] Performed By: #### 2 4356-8 ####[facility] LABCLIA [id number] [place] [address] [place] Leukocyte esterase Test strip Ql (U) Negative Normal Negative [facility] Comment on above: Order Comment: Speci men Type: URINE SPECIMENOrdering Facility: [facility] Address: [address] [place], [place] [id number] Performed By: #### 2 4356-8 ####[facility] LABCLIA [id number] [place] [address] [place] Nitrite Ql (U) Negative Normal Negative [facility] Comment on above: Order Comment: Speci men Type: URINE SPECIMENOrdering Facility: [facility] Address: [address] [place], [place] [id number] Performed By: #### 2 4356-8 ####[facility] LABIA [id number] [address] [place] [facility] pH (U) 5.0 [pH] Normal 5.0-8.0 [facility] Comment on above: Order Comment: Speci men Type: URINE SPECIMENOrdering Facility: [facility] Address: [address] [place], [place] [id number] Performed By: #### 2 4356-8 ####[facility] LABIA [id number] [place] [address] [place] Protein (U) [Mass/Vol] 2+ Abnormal Negative [facility] Comment on above: Order Comment: Speci men Type: URINE SPECIMENOrdering Facility: [facility] Address: [address] [place], [place] [id number] Performed By: #### 2 4356-8 ####[facility] LABIA [id number] [place] [address] [place] RBC LM.HPF (Urine sed) [#/Area] 0-3 /HPF Normal 0-3 /HPF [facility] Comment on above: Order Comment: Speci men Type: URINE SPECIMENOrdering Facility: [facility] Address: [address] [place], [place] [id number] Performed By: #### 2 4356-8 ####[facility] LABIA [id number] [place] [address] [place] Specific gravity (U) [Rel density] 1.023 Normal 1.005-1.030 [facility] Comment on above: Order Comment: Speci men Type: URINE SPECIMENOrdering Facility: [facility] Address: [address] [place], [place] [id number] Performed By: #### 2 4356-8 ####[facility] LABCLIA [id number] [place] [address] [place] Urobilinogen Ql (U) Negative Normal Negative [facility] Comment on above: Order Comment: Speci men Type: URINE SPECIMENOrdering Facility: [facility] Address: [address] [place] [address] Performed By: #### 2 4356-8 ####[facility] LABCLIA [id number] [place] [address] [place] WBC LM.HPF (Urine sed) [#/Area] 0-5 /HPF Normal 0-5 /HPF [facility] Comment on above: Order Comment: Speci men Type: URINE SPECIMENOrdering Facility: [facility] Address: [address] [place] [address] Performed By: #### 2 4356-8 ####[facility] LABIA [id number] [place] [address] [place] [address] ABD/PELVIS WO CONon 11-03 CT ABD/PELVIS WO CON EXAMINATION: CT ABD/PELVIS WO CON, 11/03/2021 1:28 PM EST HISTORY: CALCULUS OF KIDNEY , bilateral groin pain, left testicular pain COMPARISON: 10/28/2021 TECHNIQUE: CT scan of the abdomen and pelvis was performed without IV contrast. CT dose reduction technique was used, including Automated Exposure Control. FINDINGS: LUNG BASES: No visible pulmonary or pleural disease. Small amount of pericardial fluid felt to be within normal limits LIVER: No enlargement, atrophy, abnormal density, or significant focal lesion. BILIARY: Diffuse hypoattenuation suggesting hepatic steatosis. PANCREAS: No lesion, fluid collection, ductal dilatation, or atrophy. SPLEEN: No enlargement or focal lesion. ADRENALS: Normal right. 1.9 cm left adrenal nodule, stable KIDNEYS: Bilateral adrenal hypodensities, cysts are favored. Stable 6 mm right renal cortical hypodensity axial image 58. No hydronephrosis or obstructing nephrolithiasis . BOWEL/MESENTERY: moderate amount of stool in the colon and rectum. Nonobstructive bowel gas pattern. Normal appendix AORTA/VASCULAR: No aortic aneurysm. Moderate diffuse atherosclerosis RETROPERITONEUM: No mass or adenopathy. LYMPH NODES: No adenopathy. URINARY BLADDER: No visible focal wall thickening, lesion, or calculus. PELVIC ORGANS: Prostate gland is not visualized ABDOMINAL WALL: No mass or hernia. BONES: No bony lesion or fracture. OTHER: Negative. IMPRESSION: Moderate amount of stool throughout the colon No obstructive uropathy Electronically authenticated by: GALILEO GARCIA Date: 2021-11-03 14:22 Normal [facility] Covid-19 PCR (CVDTBH)on SARS-CoV-2 (COVID-19) RNA ANDREA+probe Ql (Unsp spec) Not detected Normal NOT DETECTED [facility] Comment on above: Result Comment: This test is not yet approved or cleared by the [place] FDA. When there are no FDA-approved or cleared tests available, and other criteria are met, FDA can make tests available under an emergency access mechanism called an Emergency Use Authorization (EUA). The EUA for this test is supported by the Product Development Ecologist of Health and Human Service's (HHS's) declaration that circumstances exist to justify the emergency use of in vitro diagnostics for the detection and/or diagnosis of the virus that causes COVID-19. This EUA will remain in effect (meaning this test can be used) for the duration of the COVID-19 declaration justifying emergency of IVDs, unless it is terminated or revoked by FDA (after which the test may no longer be used). When diagnostic testing is negative, the possibility of a false negative should be considered in the context of a patient's recent exposures and the presence of clinical signs and symptoms consistent with SARS-CoV-2. Performed By: #### S EDR #### [facility] [address] [place] [address] Dr. Mary Lee MRI LSPINE WO CONon 11-04-19 MRI LSPINE WO CON EXAMINATION: MRI LSP INE WO CON HISTORY: Low back pain COMPARISON: CT exam 10/28/2021 TECHNIQUE: A variety of imaging planes and parameters were utilized for visualization of suspected pathology. FINDINGS: For the purposes of numbering, sagittal T2 image # 8 extends from the T11-T12 vertebral body superiorly to the S3 level inferiorly. PARASPINAL AREA: Normal with no visible mass. Ectasia of the infrarenal aorta up to 2.6 cm in diameter BONES: Normal alignment with no acute fracture or spondylolisthesis. No bone edema. CORD/CAUDA EQUINA: Normal caliber, contour, and signal intensity. DISC LEVELS: 12-L1: No significant disc/facet abnormality, spinal stenosis, or foraminal stenosis. L1-L2: No significant disc/facet abnormality, spinal stenosis, or foraminal stenosis. L2-L3: No significant disc/facet abnormality, spinal stenosis, or foraminal stenosis. L3-L4: No significant disc/facet abnormality, spinal stenosis, or foraminal stenosis. L4-L5: Early degenerative disc disease is present without focal protrusion or neural impingement. L5-S1: No significant disc/facet abnormality, spinal stenosis, or foraminal stenosis. IMPRESSION: Minimal disc desiccation L4-L5 No disc bulge or herniation. No central or foraminal stenosis Electronically authenticated by: GALILEO GARCIA Date: 2021-11-03 13:16 Normal [facility] POINT OF CARE GLUCOSEon 03-0 Glucose [Mass/Vol] 181 mg/dL Critically high 74-106 T [facility] Comment on above: Performed By: #### C RP, CMP #### [facility] [address] [place] [address] Dr. Mary Lee US SCROTUM W VASCULAR ORGANo n 11-03-2021 US SCROTUM W VASCULAR ORGAN EXAMINATION: US SCROTUM W VASCULAR ORGAN HISTORY: Inguinal pain COMPARISON: 10/28/2021 TECHNIQUE: High-resolution sonographic imaging of the scrotum and contents was performed. FINDINGS: The right testicle is normal in size, contour and homogeneous echotexture measuring 4.0 x 2.8 x 2.4 cm. Normal color and Doppler flow. The right epididymis is normal in appearance. The left testicle is normal in size, contour and homogeneous echotexture measuring 3.7 x 2.6 x 2.4 cm. Normal color and Doppler flow. The left epididymis is normal in appearance. Small bilateral septated debris-filled hydroceles No right varicocele. Moderate left varicocele IMPRESSION: No evidence of testicular torsion or epididymoorchitis Small bilateral septated debris-filled hydroceles Moderate sized left varicocele Electronically authenticated by: GALILEO GARCIA Date: 2021-11-03 14:55 Normal [facility] CBC AUTO DIFFon 11-02-2021 BASO # 0.1 103/ul Normal 0.0-0.1 [facility] Comment on above: Performed By: #### C RP, CMP #### [facility] [address] [place] [address] Dr. Mary Lee Basophils/100 WBC (Bld) 0.6 % Normal 0.2-2.0 [facility] Comment on above: Performed By: #### C RP, CMP #### [facility] [address] [place] [address] Dr. Mary Lee EO # 0.2 103/ul Normal 0.0-0.7 [facility] Comment on above: Performed By: #### C RP, CMP #### [facility] [address] [place] [address] Dr. Mary Lee Eosinophils/100 WBC (Bld) 1.9 % Normal 0.9-7.0 [facility] Comment on above: Performed By: #### C RP, CMP #### [facility] [address] [place] [address] Dr. Mary Lee Erythrocyte distribution width (RBC) [Ratio] 14.7 % Normal 11.0-15.0 [facility] Comment on above: Performed By: #### C RP, CMP #### [facility] [address] [place] [address] Dr. Mary Lee Hematocrit (Bld) [Volume fraction] 35.9 % Critically low 42.0-54.0 [facility] Comment on above: Performed By: #### C RP, CMP #### [facility] [address] [place] [address] Dr. Mary Lee Hemoglobin (Bld) [Mass/Vol] 11.9 g/dL Critically low 14.0-18.0 [facility] Comment on above: Performed By: #### C RP, CMP #### [facility] [address] [place] [address] Dr. Mary Lee IG # 0.04 10e3/ul Critically high 0.00-0.03 [facility] Comment on above: Performed By: #### C RP, CMP #### [facility] [address] [address] [address] Mary Lee IG % 0.5 % Normal 0.0-0.5 [facility] Comment on above: Performed By: #### C RP, CMP #### [facility] [address] [address] [address] Mary Lee LYMPH # 0.8 103/ul Critically low 1.2-3.8 [facility] Comment on above: Performed By: #### C RP, CMP #### [facility] [address] [address] [address] Mary Lee Lymphocytes/100 WBC (Bld) 10.1 % Critically low 20.5-60.0 [facility] Comment on above: Performed By: #### C RP, CMP #### [facility] [address] [address] [address] Mary Lee MANUAL DIFF REQ NO Normal [facility] Comment on above: Performed By: #### C RP, CMP #### [facility] [address] [address] [address] Mary Lee MCH (RBC) [Entitic mass] 36.1 pg Critically high 25.9-34.0 [facility] Comment on above: Performed By: #### C RP, CMP #### [facility] [address] [address] [address] Mary Lee MCHC (RBC) [Mass/Vol] 33.1 g/dL Normal 29.9-35.2 [facility] Comment on above: Performed By: #### C RP, CMP #### [facility] [address] [address] [address] Mary Lee MCV (RBC) [Entitic vol] 108.8 fL Critically high 80.0-94.0 [facility] Comment on above: Performed By: #### C RP, CMP #### [facility] [address] [address] [address] Mary Lee MONO # 0.7 103/ul Normal 0.3-0.8 [facility] Comment on above: Performed By: #### C RP, CMP #### [facility] [address] [place] [address] Dr. Mary Lee Monocytes/100 WBC (Bld) 8.1 % Normal 1.7-12.0 [facility] Comment on above: Performed By: #### C RP, CMP #### [facility] [address] [place] [address] Dr. Mary Lee NEUT # 6.6 103/ul Critically high 1.4-6.5 [facility] Comment on above: Performed By: #### C RP, CMP #### [facility] [address] [place] [address] Dr. Mary Lee Neutrophils/100 WBC (Bld) 78.8 % Critically high 43.0-75.0 [facility] Comment on above: Performed By: #### C RP, CMP #### [facility] [address] [place] [address] Dr. Mary Lee Platelet mean volume (Bld) [Entitic vol] 9.3 fL Critically low 9.5-13.5 [facility] Comment on above: Performed By: #### C RP, CMP #### [facility] [address] [place] [address] Dr. Mary Lee PLT 268 103/ul Normal 150-450 [facility] Comment on above: Performed By: #### C RP, CMP #### [facility] [address] [place] [address] Dr. Mary Lee RBC 3.30 106/ul Critically low 4.70-6.10 [facility] Comment on above: Performed By: #### C RP, CMP #### [facility] [address] [place] [address] Dr. Mary Lee WBC 8.3 103/ul Normal 4.0-11.0 [facility] Comment on above: Performed By: #### C RP, CMP #### [facility] [address] [place] [address] Dr. Mary Lee POINT OF CARE GLUCOSEon 03-0 Glucose [Mass/Vol] 135 mg/dL Critically high 74-106 T [facility] Comment on above: Performed By: #### S EDR #### [facility] [address] [place] [address] Dr. Mary Lee PROF 14(COMP METB)on 022 Albumin [Mass/Vol] 3.5 g/dL Normal 3.5-5.0 [facility] Comment on above: Performed By: #### C MP #### [facility] [address] [place] [address] Dr. Mary Lee Albumin/Globulin [Mass ratio] 0.8 {ratio} Normal [facility] Comment on above: Performed By: #### C MP #### [facility] [address] [place] [address] Dr. Mary Lee ALP [Catalytic activity/Vol] 65 U/L Normal 38-126 [facility] Comment on above: Performed By: #### C MP #### [facility] [address] [place] [address] Dr. Mary Lee ALT [Catalytic activity/Vol] 22 U/L Normal 21-72 [facility] Comment on above: Performed By: #### C MP #### [facility] [address] [place] [address] Dr. Mary Lee Anion gap [Moles/Vol] 12.7 mmol/L Normal [facility] Comment on above: Performed By: #### C MP #### [facility] [address] [place] [address] Dr. Mary Lee AST [Catalytic activity/Vol] 12 U/L Critically low 17-59 [facility] Comment on above: Performed By: #### C MP #### [facility] [address] [place] [address] Dr. Mary Lee Bilirubin [Mass/Vol] 0.4 mg/dL Normal 0.2-1.3 [facility] Comment on above: Performed By: #### C MP #### [facility] [address] [place] [address] Dr. Mary Lee Calcium [Mass/Vol] 8.9 mg/dL Normal 8.4-10.2 [facility] Comment on above: Performed By: #### C MP #### [facility] [address] [place] [address] Dr. Mary Lee Chloride [Moles/Vol] 101 mmol/L Normal 98-107 [facility] Comment on above: Performed By: #### C MP #### [facility] [address] [address] [address] Mary Lee CO2 [Moles/Vol] 24.8 mmol/L Normal 22.0-30.0 [facility] Comment on above: Performed By: #### C MP #### [facility] [address] [place] [address] Dr. Mary Lee Creatinine [Mass/Vol] 2.03 mg/dL Critically high 0.66-1.25 [facility] Comment on above: Performed By: #### C MP #### [facility] [address] [place] [address] Dr. Mary Lee EGFR-AF CYMRAES 40 mL/min/1.73m2 Critically low >=60 [facility] Comment on above: Performed By: #### C MP #### [facility] [address] [place] [address] Dr. Mary Lee EGFR-NON AF CYMRAES 33 mL/min/1.73m2 Critically low >=60 [facility] Comment on above: Performed By: #### C MP #### [facility] [address] [place] [address] Dr. Mary Lee Globulin (S) [Mass/Vol] 4.3 g/dL Normal [facility] Comment on above: Performed By: #### C MP #### [facility] [address] [address] [address] Mary Lee Glucose [Mass/Vol] 175 mg/dL Critically high 74-106 [facility] Comment on above: Performed By: #### C MP #### [facility] [address] [place] [address] Dr. Mary Lee Potassium [Moles/Vol] 4.5 mmol/L Normal 3.4-5.0 [facility] Comment on above: Performed By: #### C MP #### [facility] [address] [place] [address] Dr. Mary Lee Protein [Mass/Vol] 7.8 g/dL Normal 6.1-8.2 [facility] Comment on above: Performed By: #### C MP #### [facility] [address] [address] [address] Mary Lee Sodium [Moles/Vol] 134 mmol/L Critically low 137-145 Th [facility] Comment on above: Performed By: #### C MP #### [facility] [address] [place] [address] Dr. Mary Lee Urea nitrogen [Mass/Vol] 48.0 mg/dL Critically high 9.0-20.0 [facility] Comment on above: Performed By: #### C MP #### [facility] [address] [place] [address] Dr. Mary Lee Urea nitrogen/Creatinine [Mass ratio] 23.6 mg/mg Normal [facility] Comment on above: Performed By: #### C MP #### [facility] [address] [place] [address] Dr. Mary Lee ER URINE PROFILEon 2 Bilirubin Ql (U) Negative Normal NEGATIVE [facility] Comment on above: Performed By: #### C RP, CMP #### [facility] [address] [place] [address] Dr. Mary Lee Clarity (U) CLEAR Normal CLEAR [facility] Comment on above: Performed By: #### C RP, CMP #### [facility] [address] [place] [address] Dr. Mary Lee Color (U) LT. YELLOW Normal YELLOW [facility] Comment on above: Performed By: #### C RP, CMP #### [facility] [address] [place] [address] Dr. Mary Lee ERUAHD A micrscopic examina tion will be performed if indicated. Normal [facility] Comment on above: Performed By: #### C RP, CMP #### [facility] [address] [place] [address] Dr. Mary Lee Glucose Ql (U) 100 mg/dl Abnormal NEGATIVE [facility] Comment on above: Performed By: #### C RP, CMP #### [facility] [address] [place] [address] Dr. Mary Lee Hemoglobin Ql (U) TRACE-INTACT Abnormal NEGATIVE [facility] Comment on above: Performed By: #### C RP, CMP #### [facility] [address] [place] [address] Dr. Mary Lee Ketones Ql (U) Negative Normal NEGATIVE [facility] Comment on above: Performed By: #### C RP, CMP #### [facility] [address] [place] [address] Dr. Mary Lee LEUKOCYTES Negative Normal NEGATIVE [facility] Comment on above: Performed By: #### C RP, CMP #### [facility] [address] [place] [address] Dr. Mary Lee Nitrite Ql (U) Negative Normal NEGATIVE [facility] Comment on above: Performed By: #### C RP, CMP #### [facility] [address] [place] [address] Dr. Mary Lee pH (U) 5.5 [pH] Normal 5-9 [facility] Comment on above: Performed By: #### C RP, CMP #### [facility] [address] [place] [address] Dr. Mary Lee Protein (U) [Mass/Vol] 100 mg/dL Abnormal NEGATIVE/ TRACE [facility] Comment on above: Performed By: #### C RP, CMP #### [facility] [address] [place] [address] Dr. Mary Lee SPEC GRAVITY 1.025 Normal 1.005-<=1.0 25 [facility] Comment on above: Performed By: #### C RP, CMP #### [facility] [address] [place] [address] Dr. Mary Lee UR MICRO IND INDICATED Normal [facility] Comment on above: Performed By: #### C RP, CMP #### [facility] [address] [place] [address] Dr. Mary Lee Urobilinogen Qn (U) 0.2 {Ofelia'U}/dL Normal 0.2 - 1. 0 [facility] Comment on above: Performed By: #### C RP, CMP #### [facility] [address] [place] [address] Dr. Mary Lee URINE MICROSCOPIC ONLYon BACTERIA NONE SEEN Normal NONE SEEN [facility] Comment on above: Performed By: #### C RP, CMP #### [facility] [address] [place] [address] Dr. Mary Lee Bacteria identified Cx Nom (U) NOT INDICATED Normal [facility] Comment on above: Performed By: #### C RP, CMP #### [facility] [address] [place] [address] Dr. Mary Lee CAST SEEN Abnormal NONE SEEN [facility] Comment on above: Performed By: #### C RP, CMP #### [facility] [address] [place] [address] Dr. Mary Lee Crystals LM Nom (Urine sed) NONE SEEN Normal NONE SEEN [facility] Comment on above: Performed By: #### C RP, CMP #### [facility] [address] [place] [address] Dr. Mary Lee Epithelial cells LM Ql (Urine sed) RARE Normal NONE SEEN /RARE [facility] Comment on above: Performed By: #### C RP, CMP #### [facility] [address] [place] [address] Dr. Mary Lee MUCOUS TRACE Abnormal NONE SEEN [facility] Comment on above: Performed By: #### C RP, CMP #### [facility] [address] [place] [address] Dr. Mary Lee RBC NONE SEEN Abnormal 0-2 [facility] Comment on above: Performed By: #### C RP, CMP #### [facility] [address] [place] [address] Dr. Mary Lee WBC 0-2 Abnormal NONE SEEN [facility] Comment on above: Performed By: #### C , [facility] #### [facility] [address] [address] [address] ABD/PELVIS WO CONon 10-29 CT ABD/PELVIS WO CON EXAMINATION: CT ABD/PELVIS WO CON, 10/28/2021 9:50 PM EST HISTORY: Necrotizing fasciitis COMPARISON: CT lumbar spine dated 02/17/2019 and Report of prior CT of the abdomen/pelvis dated 02/15/2008 (images for this examination are not available for comparison) TECHNIQUE: CT scan of the abdomen and pelvis was performed without IV contrast. CT dose reduction technique was used, including Automated Exposure Control. FINDINGS: Benign calcified nodule is seen in the left lung base. The lung bases are otherwise clear. The heart size is normal. Tiny pericardial effusion versus pericardial thickening is seen. The liver, gallbladder, spleen, pancreas and the right adrenal gland appear unremarkable on this noncontrast examination. 2 cm mild heterogeneous left adrenal nodule is seen, which appears stable since prior CT lumbar spine dated 02/17/2019. 3.6 cm low density is seen in the inferior pole of the right kidney, as well as a 15 mm low density in the inferior pole of the left kidney, which can be better characterized with renal ultrasound, but which CT appearance can be seen with cystic structures. There is no evidence for nephrolithiasis or hydronephrosis bilaterally. No ureteral calculus is seen bilaterally. The urinary bladder appears unremarkable. The stomach and duodenum appear unremarkable. Nonobstructive bowel pattern is seen. Normal-appearing appendix is visualized. No significant bowel wall thickening is seen. The urinary bladder appears unremarkable. No significant free fluid or abnormal fluid collection is seen in the abdomen and pelvis. Aortic and iliac arterial consolidation is seen without aneurysmal dilatation. No significant soft tissue gas is seen. No acute osseous abnormality is seen. IMPRESSION: Tiny pericardial effusion versus pericardial thickening is seen. 2 cm left adrenal nodule, stable since prior lumbar spine CT of 02/17/2019. No evidence for soft tissue gas. Normal-appearing appendix is visualized. Likely bilateral renal cysts. Electronically authenticated by: LINDA PEREZ Date: 2021-10-28 22:21 Normal [facility] CBC AUTO DIFFon 10-28-2021 BASO # 0.1 103/ul Normal 0.0-0.1 [facility] Comment on above: Performed By: #### S EDR #### [facility] [address] [address] [address] Mary Lee Basophils/100 WBC (Bld) 0.6 % Normal 0.2-2.0 [facility] Comment on above: Performed By: #### S EDR #### [facility] [address] [address] [address] Mary Lee EO # 0.2 103/ul Normal 0.0-0.7 [facility] Comment on above: Performed By: #### S EDR #### [facility] [address] [address] [address] Mary Lee Eosinophils/100 WBC (Bld) 1.5 % Normal 0.9-7.0 [facility] Comment on above: Performed By: #### S EDR #### [facility] [address] [place] [address] Dr. Mary Lee Erythrocyte distribution width (RBC) [Ratio] 15.0 % Normal 11.0-15.0 [facility] Comment on above: Performed By: #### S EDR #### [facility] [address] [place] [address] Dr. Mary Lee Hematocrit (Bld) [Volume fraction] 37.8 % Critically low 42.0-54.0 [facility] Comment on above: Performed By: #### S EDR #### [facility] [address] [place] [address] Dr. Mary Lee Hemoglobin (Bld) [Mass/Vol] 12.6 g/dL Critically low 14.0-18.0 [facility] Comment on above: Performed By: #### S EDR #### [facility] [address] [place] [address] Dr. Mary Lee IG # 0.11 10e3/ul Critically high 0.00-0.03 [facility] Comment on above: Performed By: #### S EDR #### [facility] [address] [place] [address] Dr. Mary Lee IG % 1.0 % Critically high 0.0-0.5 [facility] Comment on above: Performed By: #### S EDR #### [facility] [address] [place] [address] Dr. Mary Lee LYMPH # 1.2 103/ul Normal 1.2-3.8 [facility] Comment on above: Performed By: #### S EDR #### [facility] [address] [address] [address] Mary Lee Lymphocytes/100 WBC (Bld) 11.2 % Critically low 20.5-60.0 [facility] Comment on above: Performed By: #### S EDR #### [facility] [address] [place] [address] Dr. Mary Lee MANUAL DIFF REQ NO Normal [facility] Comment on above: Performed By: #### S EDR #### [facility] [address] [place] [address] Dr. Mary Lee MCH (RBC) [Entitic mass] 35.7 pg Critically high 25.9-34.0 [facility] Comment on above: Performed By: #### S EDR #### [facility] [address] [place] [address] Dr. Mary Lee MCHC (RBC) [Mass/Vol] 33.3 g/dL Normal 29.9-35.2 [facility] Comment on above: Performed By: #### S EDR #### [facility] [address] [place] [address] Dr. Mary Lee MCV (RBC) [Entitic vol] 107.1 fL Critically high 80.0-94.0 [facility] Comment on above: Performed By: #### S EDR #### [facility] [address] [place] [address] Dr. Mary Lee MONO # 0.9 103/ul Critically high 0.3-0.8 [facility] Comment on above: Performed By: #### S EDR #### [facility] [address] [place] [address] Dr. Mary Lee Monocytes/100 WBC (Bld) 8.1 % Normal 1.7-12.0 [facility] Comment on above: Performed By: #### S EDR #### [facility] [address] [place] [address] Dr. Mary Lee NEUT # 8.2 103/ul Critically high 1.4-6.5 [facility] Comment on above: Performed By: #### S EDR #### [facility] [address] [place] [address] Dr. Mary Lee Neutrophils/100 WBC (Bld) 77.6 % Critically high 43.0-75.0 [facility] Comment on above: Performed By: #### S EDR #### [facility] [address] [place] [address] Dr. Mary Lee Platelet mean volume (Bld) [Entitic vol] 9.7 fL Normal 9.5-13.5 [facility] Comment on above: Performed By: #### S EDR #### [facility] [address] [place] [address] Dr. Mary Lee PLT 265 103/ul Normal 150-450 [facility] Comment on above: Performed By: #### S EDR #### [facility] [address] [place] [address] Dr. Mary Lee RBC 3.53 106/ul Critically low 4.70-6.10 [facility] Comment on above: Performed By: #### S EDR #### [facility] [address] [place] [address] Dr. Mary Lee WBC 10.6 103/ul Normal 4.0-11.0 [facility] Comment on above: Performed By: #### S EDR #### [facility] [address] [place] [address] Dr. Mary Lee CRPon 10-28-2021 CRP 0.9 mg/dL Normal <=1.0 [facility] Comment on above: Performed By: #### C RP, CMP #### [facility] [address] [place] [address] Dr. Mary Lee CULTURE BLOODon 10-28-2021 Microscopic examination of blood, culture Culture Observations: NO GROWTH AT 5 DAYS. Normal [facility] Comment on above: Performed By: #### C RP, CMP #### [facility] [address] [place] [address] Dr. Mary Lee ER URINE PROFILEon 2 Bilirubin Ql (U) Negative Normal NEGATIVE [facility] Comment on above: Performed By: #### C RP, CMP #### [facility] [address] [place] [address] Dr. Mray Lee Clarity (U) CLEAR Normal CLEAR [facility] Comment on above: Performed By: #### C RP, CMP #### [facility] [address] [place] [address] Dr. Mary Lee Color (U) LT. YELLOW Normal YELLOW [facility] Comment on above: Performed By: #### C RP, CMP #### [facility] [address] [place] [address] Dr. Mary CRUZ A micrscopic examina tion will be performed if indicated. Normal [facility] Comment on above: Performed By: #### C RP, CMP #### [facility] [address] [place] [address] Dr. Mary Lee Glucose Ql (U) 250 mg/dl Abnormal NEGATIVE [facility] Comment on above: Performed By: #### C RP, CMP #### [facility] [address] [place] [address] Dr. Mary Lee Hemoglobin Ql (U) Negative Normal NEGATIVE [facility] Comment on above: Performed By: #### C RP, CMP #### [facility] [address] [place] [address] Dr. Mary Lee Ketones Ql (U) Negative Normal NEGATIVE [facility] Comment on above: Performed By: #### C RP, CMP #### [facility] [address] [place] [address] Dr. Mary Lee LEUKOCYTES Negative Normal NEGATIVE [facility] Comment on above: Performed By: #### C RP, CMP #### [facility] [address] [place] [address] Dr. Mary Lee Nitrite Ql (U) Negative Normal NEGATIVE [facility] Comment on above: Performed By: #### C RP, CMP #### [facility] [address] [place] [address] Dr. Mary Lee pH (U) 5.5 [pH] Normal 5-9 [facility] Comment on above: Performed By: #### C RP, CMP #### [facility] [address] [place] [address] Dr. Mary Lee Protein (U) [Mass/Vol] 100 mg/dL Abnormal NEGATIVE/ TRACE [facility] Comment on above: Performed By: #### C RP, CMP #### [facility] [address] [place] [address] Dr. Mary Lee SPEC GRAVITY 1.025 Normal 1.005-<=1.0 25 [facility] Comment on above: Performed By: #### C RP, CMP #### [facility] [address] [place] [address] Dr. Mary Lee UR MICRO IND INDICATED Normal [facility] Comment on above: Performed By: #### C RP, CMP #### [facility] [address] [place] [address] Dr. Mary Lee Urobilinogen Qn (U) 0.2 {Ofelia'U}/dL Normal 0.2 - 1. 0 [facility] Comment on above: Performed By: #### C RP, CMP #### [facility] [address] [place] [address] Dr. Mary Lee LACTATE/LACTIC ACIDon 2021 Lactate [Moles/Vol] mmol/L Critically low 0.7-2.0 [facility] Comment on above: Performed By: #### L ACT #### [facility] [address] [place] [address] Dr. Mary Lee PROF 14(COMP METB)on 022 Albumin [Mass/Vol] 3.9 g/dL Normal 3.5-5.0 [facility] Comment on above: Performed By: #### C RP, CMP #### [facility] [address] [place] [address] Dr. Mary Lee Albumin/Globulin [Mass ratio] 1.0 {ratio} Normal [facility] Comment on above: Performed By: #### C RP, CMP #### [facility] [address] [place] [address] Dr. Mary Lee ALP [Catalytic activity/Vol] 65 U/L Normal 38-126 [facility] Comment on above: Performed By: #### C RP, CMP #### [facility] [address] [place] [address] Dr. Mary Lee ALT [Catalytic activity/Vol] 32 U/L Normal 21-72 [facility] Comment on above: Performed By: #### C RP, CMP #### [facility] [address] [place] [address] Dr. Mary Lee Anion gap [Moles/Vol] 17.0 mmol/L Normal [facility] Comment on above: Performed By: #### C RP, CMP #### [facility] [address] [place] [address] Dr. Mary Lee AST [Catalytic activity/Vol] 18 U/L Normal 17-59 [facility] Comment on above: Performed By: #### C RP, CMP #### [facility] [address] [place] [address] Dr. Mary Lee Bilirubin [Mass/Vol] 0.4 mg/dL Normal 0.2-1.3 [facility] Comment on above: Performed By: #### C RP, CMP #### [facility] [address] [place] [address] Dr. Mary Lee Calcium [Mass/Vol] 9.7 mg/dL Normal 8.4-10.2 [facility] Comment on above: Performed By: #### C RP, CMP #### [facility] [address] [place] [address] Dr. Mary Lee Chloride [Moles/Vol] 105 mmol/L Normal 98-107 [facility] Comment on above: Performed By: #### C RP, CMP #### [facility] [address] [place] [address] Dr. Mary Lee CO2 [Moles/Vol] 19.9 mmol/L Critically low 22.0-30.0 [facility] Comment on above: Performed By: #### C RP, CMP #### [facility] [address] [address] [address] Mary Lee Creatinine [Mass/Vol] 2.12 mg/dL Critically high 0.66-1.25 [facility] Comment on above: Performed By: #### C RP, CMP #### [facility] [address] [address] [address] Mary Lee EGFR-AF CYMRAES 38 mL/min/1.73m2 Critically low >=60 [facility] Comment on above: Performed By: #### C RP, CMP #### [facility] [address] [place] [address] Dr. Mary Lee EGFR-NON AF CYMRAES 32 mL/min/1.73m2 Critically low >=60 [facility] Comment on above: Performed By: #### C RP, CMP #### [facility] [address] [place] [address] Dr. Mary Lee Globulin (S) [Mass/Vol] 4.0 g/dL Normal [facility] Comment on above: Performed By: #### C RP, CMP #### [facility] [address] [address] [address] Mary Lee Glucose [Mass/Vol] 156 mg/dL Critically high 74-106 [facility] Comment on above: Performed By: #### C RP, CMP #### [facility] [address] [place] [address] Dr. Mary Lee Potassium [Moles/Vol] 4.9 mmol/L Normal 3.4-5.0 [facility] Comment on above: Performed By: #### C RP, CMP #### [facility] [address] [place] [address] Dr. Mary Lee Protein [Mass/Vol] 7.9 g/dL Normal 6.1-8.2 [facility] Comment on above: Performed By: #### C RP, CMP #### [facility] [address] [place] [address] Dr. Mary Lee Sodium [Moles/Vol] 137 mmol/L Normal 137-145 [facility] Comment on above: Performed By: #### C RP, CMP #### [facility] [address] [place] [address] Dr. Mary Lee Urea nitrogen [Mass/Vol] 55.0 mg/dL Critically high 9.0-20.0 [facility] Comment on above: Performed By: #### C RP, CMP #### [facility] [address] [place] [address] Dr. Mary Lee Urea nitrogen/Creatinine [Mass ratio] 25.9 mg/mg Normal [facility] Comment on above: Performed By: #### C RP, CMP #### [facility] [address] [place] [address] Dr. Mary Lee [facility] 27 mm/hr Critically high <=20 [facility] Comment on above: Performed By: #### S EDR #### [facility] [address] [place] [address] Dr. Mary Lee URINE MICROSCOPIC ONLYon BACTERIA NONE SEEN Normal NONE SEEN [facility] Comment on above: Performed By: #### C RP, CMP #### [facility] [address] [place] [address] Dr. Mary Lee Bacteria identified Cx Nom (U) NOT INDICATED Normal [facility] Comment on above: Performed By: #### C RP, CMP #### [facility] [address] [place] [address] Dr. Mary Lee CAST NONE SEEN Normal NONE SEEN [facility] Comment on above: Performed By: #### C RP, CMP #### [facility] [address] [place] [address] Dr. Mary Lee Crystals LM Nom (Urine sed) NONE SEEN Normal NONE SEEN [facility] Comment on above: Performed By: #### C RP, CMP #### [facility] [address] [place] [address] Dr. Mary Lee Epithelial cells LM Ql (Urine sed) RARE Normal NONE SEEN /RARE [facility] Comment on above: Performed By: #### C RP, CMP #### [facility] [address] [place] [address] [address] [address] Mary Lee MUCOUS NONE SEEN Normal NONE SEEN [facility] Comment on above: Performed By: #### C RP, CMP #### [facility] [id number] Mary Lee RBC 0-2 Normal 0-2 [facility] Comment on above: Performed By: #### C RP, CMP #### [facility] [address] [place], [place] [address] Dr. Mary Lee WBC 0-2 Abnormal NONE SEEN [facility] Comment on above: Performed By: #### C RP, CMP #### [facility] [address] [place] [address] [address] [address] Mary Lee US SCROTUM W VASCULAR ORGANo n 10-28-2021 US SCROTUM W VASCULAR ORGAN EXAM: US SCROTUM W VASCULAR ORGAN, 10/28/2021 HISTORY: O/E - testicular swelling . Bilateral scrotal pain for one day. COMPARISON: None. TECHNIQUE: Sonographic images of the scrotum were obtained in standard projections with spectral Doppler and color flow imaging. FINDINGS: The right testicle appears normal and measures 4.1 x 2.3 x 3.1 cm. Normal right testicular arterial inflow and venous outflow is documented with a resistive index of 0.45. The right epididymis measures 0.8 cm and shows multiple ovoid subcentimeter hypoechoic foci with medium echoes, as on image [id number]. These are nonspecific. Normal color flow is noted. A septated hydrocele is seen in the inferior to the testicle. The left testicle appears normal and measures 3.8 x 2.2 x 2.3 cm. Normal left testicular arterial inflow and venous outflow is documented. The left epididymis measures 1.2 cm and appears unremarkable. A complex septated left hydrocele is seen inferior to the testicle. Left varicocele is noted with veins measuring up to 3.3 mm. IMPRESSION: 1. Unremarkable bilateral testicles. 2. Negative for epididymitis, orchitis, or testicular torsion. 3. Complex bilateral septated hydroceles. 4. Nonspecific heterogeneous right epididymis without epididymitis. Precautionary follow up recommended in 3-4 months to assess stability and exclude underlying mass. 5. Mild left varicocele. Electronically authenticated by: JHON STOUT Date: 2021-10-28 21:18 Normal [facility] CBC AUTO DIFFon 10-13-2021 BASO # 0.1 103/ul Normal 0.0-0.1 [facility] Comment on above: Performed By: #### C BC #### [facility] [address] [address] [address] Mary Lee Basophils/100 WBC (Bld) 0.9 % Normal 0.2-2.0 [facility] Comment on above: Performed By: #### C BC #### [facility] [address] [place] [address] Dr. Mary Lee EO # 0.1 103/ul Normal 0.0-0.7 [facility] Comment on above: Performed By: #### C BC #### [facility] [address] [address] [address] Mary Lee Eosinophils/100 WBC (Bld) 2.2 % Normal 0.9-7.0 [facility] Comment on above: Performed By: #### C BC #### [facility] [address] [place] [address] Dr. Mary Lee Erythrocyte distribution width (RBC) [Ratio] 15.1 % Critically high 11.0-15.0 [facility] Comment on above: Performed By: #### C BC #### [facility] [address] [address] [address] Mary Lee Hematocrit (Bld) [Volume fraction] 37.0 % Critically low 42.0-54.0 [facility] Comment on above: Performed By: #### C BC #### [facility] [address] [place] [address] Dr. Mary Lee Hemoglobin (Bld) [Mass/Vol] 12.4 g/dL Critically low 14.0-18.0 [facility] Comment on above: Performed By: #### C BC #### [facility] [address] [address] [address] Mary Lee IG # 0.05 10e3/ul Critically high 0.00-0.03 [facility] Comment on above: Performed By: #### C BC #### [facility] [address] [address] [address] Mary Lee IG % 0.9 % Critically high 0.0-0.5 [facility] [place] [facility] Comment on above: Performed By: #### C BC #### [facility] [address] [address] [address] Mary Lee LYMPH # 1.0 103/ul Critically low 1.2-3.8 [facility] Comment on above: Performed By: #### C BC #### [facility] [address] [place] [address] Dr. Mary Lee Lymphocytes/100 WBC (Bld) 16.9 % Critically low 20.5-60.0 [facility] Comment on above: Performed By: #### C BC #### [facility] [address] [address] [address] Mary Lee MANUAL DIFF REQ NO Normal [facility] Comment on above: Performed By: #### C BC #### [facility] [address] [address] [address] Mary Lee MCH (RBC) [Entitic mass] 35.6 pg Critically high 25.9-34.0 [facility] Comment on above: Performed By: #### C BC #### [facility] [address] [address] [address] Mary Lee MCHC (RBC) [Mass/Vol] 33.5 g/dL Normal 29.9-35.2 [facility] Comment on above: Performed By: #### C BC #### [facility] [address] [address] [address] Mary Lee MCV (RBC) [Entitic vol] 106.3 fL Critically high 80.0-94.0 [facility] Comment on above: Performed By: #### C BC #### [facility] [address] [address] [address] Mary Lee MONO # 0.5 103/ul Normal 0.3-0.8 [facility] Comment on above: Performed By: #### C BC #### [facility] [address] [place] [address] Dr. Mary Lee Monocytes/100 WBC (Bld) 8.4 % Normal 1.7-12.0 [facility] Comment on above: Performed By: #### C BC #### [facility] [address] [place] [address] Dr. Mary Lee NEUT # 4.1 103/ul Normal 1.4-6.5 [facility] Comment on above: Performed By: #### C BC #### [facility] [address] [place] [address] Dr. Mary Lee Neutrophils/100 WBC (Bld) 70.7 % Normal 43.0-75.0 [facility] Comment on above: Performed By: #### C BC #### [facility] [address] [place] [address] Dr. Mary Lee Platelet mean volume (Bld) [Entitic vol] 9.9 fL Normal 9.5-13.5 [facility] Comment on above: Performed By: #### C BC #### [facility] [address] [place] [address] Dr. Mary Lee PLT 248 103/ul Normal 150-450 [facility] Comment on above: Performed By: #### C BC #### [facility] [address] [place] [address] Dr. Mary Lee RBC 3.48 106/ul Critically low 4.70-6.10 [facility] Comment on above: Performed By: #### C BC #### [facility] [address] [place] [address] Dr. Mary Lee WBC 5.8 103/ul Normal 4.0-11.0 [facility] Comment on above: Performed By: #### C BC #### [facility] [address] [place] [address] Dr. Mary Lee DIRECT LDLon 10-13-2021 Cholesterol in LDL [Mass/Vol] 43 mg/dL Normal [facility] Comment on above: Performed By: #### D LDL, LIPID, CMP #### [facility] [address] [address] [address] Mary Lee DLDL NORMAL SEE BELOW Normal [facility] Comment on above: Result Comment: <100 mg/dl OPTIMAL 100 - 129 mg/dl NEAR OR ABOVE OPTIMAL 130 - 159 mg/dl BORDERLINE HIGH 160 - 189 mg/dl HIGH >190 mg/dl VERY HIGH Performed By: #### D LDL, LIPID, CMP #### [facility] [address] [address] [address] Mary Lee GLYCOHEMOGLOBIN A1Con 2021 ADA RECOMMENDATION ADA THERAPEUTIC TARG ET 6.0 - 7.0 ACTION SUGGESTED > 7.0 Normal [facility] Comment on above: Performed By: #### S EDR #### [facility] [address] [place] [address] Dr. Mary Lee Glucose [Mass/Vol] 237 mg/dL Normal [facility] Comment on above: Performed By: #### S EDR #### [facility] [address] [address] [address] Mary Lee HbA1c (Bld) [Mass fraction] 9.9 % Critically high <=6.0 [facility] Comment on above: Performed By: #### S EDR #### [facility] [address] [place] [address] Dr. Mary Lee LIPID PROFILEon 10-13-2021 CHOL-HDL RATIO NORM SEE BELOW Normal [facility] Comment on above: Result Comment: 3.3 - 4.4 LOW RISK 4.4 - 7.1 AVERAGE RISK 7.1 - 11.0 MODERATE RISK >11.0 HIGH RISK Performed By: #### D LDL, LIPID, CMP #### [facility] [address] [place] [address] Dr. Mary Lee Cholesterol [Mass/Vol] 147 mg/dL Normal <=200 [facility] Comment on above: Performed By: #### D LDL, LIPID, CMP #### [facility] [address] [address] [address] Mary Lee Cholesterol in HDL [Mass/Vol] 25 mg/dL Normal [facility] Comment on above: Performed By: #### D LDL, LIPID, CMP #### [facility] [address] [address] [address] Mary Lee Cholesterol.total/C holesterol in HDL [Mass ratio] 5.9 {ratio} Normal [facility] Comment on above: Performed By: #### D LDL, LIPID, CMP #### [facility] [address] [address] [address] Mary Lee HDL NORMAL > or = 60 mg/dl - LO W CARDIOVASCULAR RISK <40 mg/dl - HIGH CARDIOVASCULAR RISK Normal [facility] Comment on above: Performed By: #### D LDL, LIPID, CMP #### [facility] [address] [place] [address] Dr. Mary Lee LDL CALC NORMAL SEE BELOW Normal [facility] Comment on above: Result Comment: <100 mg/dl OPTIMAL 100 - 129 mg/dl NEAR OR ABOVE OPTIMAL 130 - 159 mg/dl BORDERLINE HIGH 160 - 189 mg/dl HIGH >190 mg/dl VERY HIGH Performed By: #### D LDL, LIPID, CMP #### [facility] [address] [address] [address] Mary Lee Triglyceride [Mass/Vol] 598 mg/dL Critically high <=150 [facility] Comment on above: Performed By: #### D LDL, LIPID, CMP #### [facility] [address] [address] [address] Mary Lee PROF 14(COMP METB)on 022 Albumin [Mass/Vol] 3.8 g/dL Normal 3.5-5.0 [facility] Comment on above: Performed By: #### D LDL, LIPID, CMP #### [facility] [address] [place] [address] Dr. Mary Lee Albumin/Globulin [Mass ratio] 0.9 {ratio} Normal [facility] Comment on above: Performed By: #### D LDL, LIPID, CMP #### [facility] [address] [address] [address] Mary Lee ALP [Catalytic activity/Vol] 71 U/L Normal 38-126 [facility] Comment on above: Performed By: #### D LDL, LIPID, CMP #### [facility] [address] [address] [address] Mary Lee ALT [Catalytic activity/Vol] 31 U/L Normal 21-72 [facility] Comment on above: Performed By: #### D LDL, LIPID, CMP #### [facility] [address] [address] [address] Mary Lee Anion gap [Moles/Vol] 12.2 mmol/L Normal [facility] Comment on above: Performed By: #### D LDL, LIPID, CMP #### [facility] [address] [place] [address] Dr. Mary Lee AST [Catalytic activity/Vol] 14 U/L Critically low 17-59 [facility] Comment on above: Performed By: #### D LDL, LIPID, CMP #### [facility] [address] [address] [address] Mary Lee Bilirubin [Mass/Vol] 0.5 mg/dL Normal 0.2-1.3 [facility] Comment on above: Performed By: #### D LDL, LIPID, CMP #### [facility] [address] [address] [address] Mary Lee Calcium [Mass/Vol] 9.3 mg/dL Normal 8.4-10.2 [facility] Comment on above: Performed By: #### D LDL, LIPID, CMP #### [facility] [address] [address] [address] Mary Lee Chloride [Moles/Vol] 105 mmol/L Normal 98-107 [facility] Comment on above: Performed By: #### D LDL, LIPID, CMP #### [facility] [address] [address] [address] Mary Lee CO2 [Moles/Vol] 23.7 mmol/L Normal 22.0-30.0 [facility] Comment on above: Performed By: #### D LDL, LIPID, CMP #### [facility] [address] [address] [address] Mary Lee Creatinine [Mass/Vol] 1.62 mg/dL Critically high 0.66-1.25 [facility] Comment on above: Performed By: #### D LDL, LIPID, CMP #### [facility] [address] [address] [address] Mary Lee EGFR-AF CYMRAES 52 mL/min/1.73m2 Critically low >=60 [facility] Comment on above: Performed By: #### D LDL, LIPID, CMP #### [facility] [address] [address] [address] Mary Lee EGFR-NON AF CYMRAES 43 mL/min/1.73m2 Critically low >=60 [facility] Comment on above: Performed By: #### D LDL, LIPID, CMP #### [facility] [address] [address] [address] Mary Lee Globulin (S) [Mass/Vol] 4.0 g/dL Normal [facility] Comment on above: Performed By: #### D LDL, LIPID, CMP #### [facility] [address] [address] [address] Mary Lee Glucose [Mass/Vol] 231 mg/dL Critically high 74-106 T [facility] Comment on above: Performed By: #### D LDL, LIPID, CMP #### [facility] [address] [address] [address] Mary Lee Potassium [Moles/Vol] 3.9 mmol/L Normal 3.4-5.0 [facility] Comment on above: Performed By: #### D LDL, LIPID, CMP #### [facility] [address] [address] [address] Mary Lee Protein [Mass/Vol] 7.8 g/dL Normal 6.1-8.2 [facility] Comment on above: Performed By: #### D LDL, LIPID, CMP #### [facility] [address] [address] [address] Mary Lee Sodium [Moles/Vol] 137 mmol/L Normal 137-145 [facility] Comment on above: Performed By: #### D LDL, LIPID, CMP #### [facility] [id number] Mary Lee Urea nitrogen [Mass/Vol] 30.0 mg/dL Critically high 9.0-20.0 [facility] Comment on above: Performed By: #### D LDL, LIPID, CMP #### [facility] [id number] Mary Lee Urea nitrogen/Creatinine [Mass ratio] 18.5 mg/mg Normal [facility] Comment on above: Performed By: #### D LDL, LIPID, CMP #### [facility] [id number] Mary Lee XR knee LT 4V*on 09-06-2021 XR knee LT 4V* [facility] [address] XRay Report Signed Patient: Kenyetta Schumacher MR#: [id number] [birth year] : 1955 Acct:[id number] Age/Sex: 66 / M ADM Date: 09/06/21 Loc: XDUCLY Room: Type: [facility] Attending Dr: Sharifa Traore APRN Ordering Provider: Sharifa Traore APRN Date of Service: 09/06/21 XR/XR knee LT 4V*: Acute pain of left knee Copies to: Sharifa Traore APRN LEFT KNEE - 4 views COMPARISON: None CLINICAL DATA: Patient hit patella on the corner of a table a few days ago and has continued pain. AP, lateral and both oblique views were obtained. No acute fracture or dislocation is identified. There may be slight narrowing at the patellofemoral joint space. There is mild tricompartment marginal spurring, greatest at the patella. There are enthesophytes at the insertion of quadriceps tendon and origin of the patellar tendon. There is no sizable knee effusion or soft tissue swelling. XR/XR knee LT 4V* IMPRESSION: MODERATE DEGENERATIVE CHANGES. NO ACUTE BONY INJURY. Impression dictated by: Alexandra Ojeda M.D.09/06/2021 10:44 AM Dictation Location: [place] [address] Transcribed By: [facility] 09/06/211043 Dictated By: Alexandra Ojeda MD 09/06/211041 Signed By: 09/06/21 104 [facility] CBC (INCLUDES DIFF/PLT)on Basophils (Bld) [#/Vol] 0.062 10*3/uL Normal 0-200 [facility] Comment on above: Performed By: #### 1 0231, 6399, 7600 #### [facility] of [address], [address] [place] [address] Account Manager: Cam Karimi MD Basophils/100 WBC (Bld) 1.0 % Normal [facility] Comment on above: Performed By: #### 1 0231, 63, 7600 #### [facility] [place] [address] Account Manager: Cam Karimi MD Eosinophils (Bld) [#/Vol] 0.18 10*3/uL Normal 15-500 [facility] Comment on above: Performed By: #### 1 0231, 6399, 7600 #### [facility] of [place] [address] Account Manager: Cam Karimi MD Eosinophils/100 WBC (Bld) 2.9 % Normal [facility] Comment on above: Performed By: #### 1 0231, 6399, 7600 #### [facility] of [place] [address] Account Manager: Cam Karimi MD Erythrocyte distribution width (RBC) [Ratio] 14.9 % Normal 11.0-15.0 [facility] Comment on above: Performed By: #### 1 0231, 6399, 7600 #### [facility] of [place] [address] Account Manager: Cam Karimi MD Hematocrit (Bld) [Volume fraction] 39.0 % Normal 38.5-50.0 [facility] Comment on above: Performed By: #### 1 0231, 63, 7600 #### [facility] of [place] [address] Account Manager: Cam Karimi MD Hemoglobin (Bld) [Mass/Vol] 13.7 g/dL Normal 13.2-17.1 [facility] Comment on above: Performed By: #### 1 0231, 6399, 7600 #### [facility] of [place] [address] Account Manager: Cam Karimi MD Lymphocytes (Bld) [#/Vol] 1.166 10*3/uL Normal 850-3900 [facility] Comment on above: Performed By: #### 1 0231, 63, 7600 #### [facility] of [place] [address] Account Manager: Cam Karimi MD Lymphocytes/100 WBC (Bld) 18.8 % Normal [facility] Comment on above: Performed By: #### 1 023, 63, 7600 #### [facility] of [place] [address] Account Manager: Cam Karimi MD MCH (RBC) [Entitic mass] 36.7 pg High 27.0-33.0 [facility] Comment on above: Performed By: #### 1 023, 63, 7600 #### [facility] of [place] [address] Account Manager: Cam Karimi MD MCHC (RBC) [Mass/Vol] 35.1 g/dL Normal 32.0-36.0 [facility] Comment on above: Performed By: #### 1 0231, 63, 7600 #### [facility] of [place] [address] Account Manager: Cam Karimi MD MCV (RBC) [Entitic vol] 104.6 fL High 80.0-100.0 [facility] Comment on above: Performed By: #### 1 0231, 63, 7600 #### [facility] of [address], [address] [place], [place] [id number] Account Manager: Cam Karimi MD Monocytes (Bld) [#/Vol] 0.626 10*3/uL Normal 200-950 [facility] Comment on above: Performed By: #### 1 0231, 6399, 7600 #### [facility] of [address], [address] [place] [address] Account Manager: Cam Karimi MD Monocytes/100 WBC (Bld) 10.1 % Normal [facility] Comment on above: Performed By: #### 1 0231, 63, 7600 #### [facility] of [address], [address] [place] [address] Account Manager: Cam Karimi MD Neutrophils (Bld) [#/Vol] 4.166 10*3/uL Normal 8604-7965 [facility] Comment on above: Performed By: #### 1 0231, 63, 7600 #### [facility] of [address], [address] [place] [address] Account Manager: Cam Karimi MD Neutrophils/100 WBC (Bld) 67.2 % Normal [facility] Comment on above: Performed By: #### 1 0231, 6399, 7600 #### [facility] of [address], [address] [place], [place] [id number] Account Manager: Cam Karimi MD Platelet mean volume (Bld) [Entitic vol] 10.6 fL Normal 7.5-12.5 [facility] Comment on above: Performed By: #### 1 0231, 6399, 7600 #### [facility] of [address], [address] [place] [address] Account Manager: Cam Karimi MD Platelets (Bld) [#/Vol] 260 10*3/uL Normal 140-400 [facility] Comment on above: Performed By: #### 1 0231, 6399, 7600 #### [facility] of [address], [address] [place] [address] Account Manager: Cam Karimi MD RBC (Bld) [#/Vol] 3.73 10*6/uL Low 4.20-5.80 [facility] Comment on above: Performed By: #### 1 0231, 6399, 7600 #### [facility] of [address], [address] [place] [address] Account Manager: Cam Karimi MD WBC (Bld) [#/Vol] 6.2 10*3/uL Normal 3.8-10.8 [facility] Comment on above: Performed By: #### 1 0231, 6399, 7600 #### [facility] of [address], [address] [place] [address] Account Manager: Cam Karimi MD COMPREHENSIVE METABOLIC PANE [facility] 01-13-2021 Albumin [Mass/Vol] 4.5 g/dL Normal 3.6-5.1 [facility] Comment on above: Performed By: #### 1 0231, 6399, 7600 #### [facility] of [address], [address] [place] [address] Account Manager: Cam Karimi MD Albumin/Globulin [Mass ratio] 1.5 {ratio} Normal 1.0-2.5 [facility] Comment on above: Performed By: #### 1 0231, 6399, 7600 #### [facility] of [address], [address] [place] [address] Account Manager: Cam Karimi MD ALP [Catalytic activity/Vol] 48 U/L Normal 35-144 [facility] Comment on above: Performed By: #### 1 0231, 6399, 7600 #### [facility] of [address], [address] [place] [address] Account Manager: Cam Karimi MD ALT [Catalytic activity/Vol] 19 U/L Normal 9-46 [facility] Comment on above: Performed By: #### 1 0231, 6399, 7600 #### [facility] of [address], [address] [place] [address] Account Manager: Cam Karimi MD AST [Catalytic activity/Vol] 15 U/L Normal 10-35 [facility] Comment on above: Performed By: #### 1 0231, 63, 7600 #### [facility] [address], [address] [place] [address] Account Manager: Cam Karimi MD Bilirubin [Mass/Vol] 0.5 mg/dL Normal 0.2-1.2 [facility] Comment on above: Performed By: #### 1 0231, 63, 7600 #### [facility] [address], [address] [place] [address] Account Manager: Cam Karimi MD Calcium [Mass/Vol] 9.6 mg/dL Normal 8.6-10.3 [facility] Comment on above: Performed By: #### 1 0231, 63, 7600 #### [facility] [place] [address] Account Manager: Cam Karimi MD Chloride [Moles/Vol] 111 mmol/L High 98-110 [facility] Comment on above: Performed By: #### 1 0231, 63, 7600 #### [facility] [place] [address] Account Manager: Cam Karimi MD CO2 [Moles/Vol] 19 mmol/L Low 20-32 [facility] Comment on above: Performed By: #### 1 0231, 63, 7600 #### [facility] [place] [address] Account Manager: Cam Karimi MD Creatinine [Mass/Vol] 1.69 mg/dL High 0.70-1.25 [facility] Comment on above: Result Comment: For patients >49 years of age, the reference limit for Creatinine is approximately 13% higher for people identified as -Austrian. Performed By: #### 1 0231, 6399, 7600 #### [facility] [address], [address] [place] [address] Account Manager: Cam Karimi MD eGFR NON-AFR. CYMRAES 42 mL/min/1.73m2 Low > OR = 60 [facility] Comment on above: Performed By: #### 1 230, 63, 7600 #### [facility] [place] [address] Account Manager: Cam Karimi MD GFR/1.73 sq M.predicted among blacks MDRD (S/P/Bld) [Vol rate/Area] 49 mL/min/{1.73_m2} Low > OR = 60 [facility] Comment on above: Performed By: #### 1 230, 63, 7600 #### [facility] [place] [address] Account Manager: Cam Karimi MD Globulin (S) [Mass/Vol] 3.0 g/dL Normal 1.9-3.7 [facility] Comment on above: Performed By: #### 1 230, 09, 8910 #### [facility] [place] [address] Account Manager: Cam Karimi MD Glucose [Mass/Vol] 147 mg/dL High 65-99 [facility] Comment on above: Result Comment: Fasting reference interval For someone without known diabetes, a glucose value >125 mg/dL indicates that they may have diabetes and this should be confirmed with a follow-up test. Performed By: #### 1 230, 51, 5060 #### [facility] [place] [address] Account Manager: Cam Karimi MD Potassium [Moles/Vol] 4.7 mmol/L Normal 3.5-5.3 [facility] Comment on above: Performed By: #### 1 230, 63, 7600 #### [facility] [place] [address] Account Manager: Cam Karimi MD Protein [Mass/Vol] 7.5 g/dL Normal 6.1-8.1 [facility] Comment on above: Performed By: #### 1 230, 6399, 7600 #### [facility] of [address], [address] [place] [address] Account Manager: Cam Karimi MD Sodium [Moles/Vol] 139 mmol/L Normal 135-146 [facility] Comment on above: Performed By: #### 1 0231, 6399, 7600 #### [facility] of [address], [address] [place] [address] Account Manager: Cam Karimi MD Urea nitrogen [Mass/Vol] 43 mg/dL High 7-25 [facility] Comment on above: Performed By: #### 1 0231, 6399, 7600 #### [facility] of [address], [address] [place] [address] Account Manager: Cam Karimi MD Urea nitrogen/Creatinine [Mass ratio] 25 mg/mg High 6-22 [facility] Comment on above: Performed By: #### 1 0231, 63, 7600 #### [facility] of [address], [address] [place] [address] Account Manager: Cam Karimi MD LIPID PANEL, [address] Cholesterol [Mass/Vol] 149 mg/dL Normal <200 [facility] Comment on above: Performed By: #### 1 0231, 6399, 7600 #### [facility] of [address], [address] [place] [address] Account Manager: Cam Karimi MD Cholesterol in HDL [Mass/Vol] 28 mg/dL Low > OR = 40 [facility] Comment on above: Performed By: #### 1 0231, 6399, 7600 #### [facility] of [place] [address] Account Manager: Cam Karimi MD Cholesterol in LDL [Mass/Vol] 78 mg/dL Normal [facility] Comment on above: Result Comment: Refe rence range: <100 Desirable range <100 mg/dL for primary prevention; <70 mg/dL for patients with CHD or diabetic patients with > or = 2 CHD risk factors. LDL-C is now calculated using the Jamey calculation, which is a validated novel method providing better accuracy than the Friedewald equation in the estimation of LDL-C. Sy SS et al. DAVID. 2013;310(19): 3605-8057 (http://education.[employer]/faq/RYQ732) Performed By: #### 1 0231, 6399, 7600 #### [facility] [address], [address] [place] [address] Account Manager: Cam Karimi MD Cholesterol.total/C holesterol in HDL [Mass ratio] 5.3 {ratio} High <5.0 [facility] Comment on above: Performed By: #### 1 0231, 5406, 7090 #### [facility] [address], [address] [place] [address] Account Manager: Cam Karimi MD NON HDL CHOLESTEROL 121 mg/dL (calc) Normal <130 [facility] Comment on above: Result Comment: For patients with diabetes plus 1 major ASCVD risk factor, treating to a non-HDL-C goal of <100 mg/dL (LDL-C of <70 mg/dL) is considered a therapeutic option. Performed By: #### 1 0231, 2896, 3160 #### [facility] [address], [address] [place] [address] Account Manager: Cam Karimi MD Triglyceride [Mass/Vol] 353 mg/dL High <150 [facility] Comment on above: Result Comment: If a non-fasting specimen was collected, consider repeat triglyceride testing on a fasting specimen if clinically indicated. Clifford et al. J. of Clin. Lipidol. 2015;9:129-169. Performed By: #### 1 0231, 3749, 6110 #### [facility] [address], [address] [place] [address] Account Manager: Cam Karimi MD CBC AUTO DIFFon 12-22-2020 BASO # 0.1 103/ul Normal 0.0-0.1 [facility] Comment on above: Performed By: #### C BC #### [facility] [address] [place], [place] [address] Tom Alexandra Basophils/100 WBC (Bld) 1.0 % Normal 0.2-2.0 [facility] Comment on above: Performed By: #### C BC #### [facility] [address] [place] [id number] Tom Alexandra EO # 0.2 103/ul Normal 0.0-0.7 [facility] Comment on above: Performed By: #### C BC #### [facility] [address] [place] [id number] Tom Alexandra Eosinophils/100 WBC (Bld) 2.3 % Normal 0.9-7.0 [facility] Comment on above: Performed By: #### C BC #### [facility] [address] [place] [id number] Tom Alexandra Erythrocyte distribution width (RBC) [Ratio] 14.8 % Normal 11.0-15.0 [facility] Comment on above: Performed By: #### C BC #### [facility] [address] [place] [id number] Tom Alexandra Hematocrit (Bld) [Volume fraction] 37.5 % Critically low 42.0-54.0 [facility] Comment on above: Performed By: #### C BC #### [facility] [address] [place], [place] [id number] Tom Alexandra Hemoglobin (Bld) [Mass/Vol] 12.8 g/dL Critically low 14.0-18.0 [facility] Comment on above: Performed By: #### C BC #### [facility] [address] [place] [id number] Tom Alexandra IG # 0.05 10e3/ul Critically high 0.00-0.03 [facility] Comment on above: Performed By: #### C BC #### [facility] [address] [place] [id number] Tom Alexandra IG % 0.7 % Critically high 0.0-0.5 [facility] Comment on above: Performed By: #### C BC #### [facility] [address] [place] [address] Tom Morris LYMPH # 1.3 103/ul Normal 1.2-3.8 [facility] Comment on above: Performed By: #### C BC #### [facility] [address] [place], [place] [id number] Tom Morris Lymphocytes/100 WBC (Bld) 17.9 % Critically low 20.5-60.0 [facility] Comment on above: Performed By: #### C BC #### [facility] [address] [place] [address] Tom Morris MANUAL DIFF REQ NO Normal [facility] [place] [facility] Comment on above: Performed By: #### C BC #### [facility] [address] [place], [place] [id number] Tom Morris MCH (RBC) [Entitic mass] 36.4 pg Critically high 25.9-34.0 [facility] Comment on above: Performed By: #### C BC #### [facility] [address] [place] [address] Tomalberto Morris MCHC (RBC) [Mass/Vol] 34.1 g/dL Normal 29.9-35.2 [facility] Comment on above: Performed By: #### C BC #### [facility] [address] [place] [address] Tom Morris MCV (RBC) [Entitic vol] 106.5 fL Critically high 80.0-94.0 [facility] Comment on above: Result Comment: macr ocytosis 3+; teardrop cells 1+ Performed By: #### C BC #### [facility] [address] [place] [address] Tom Morris MONO # 0.6 103/ul Normal 0.3-0.8 [facility] Comment on above: Performed By: #### C BC #### [facility] [address] [place], [place] [id number] Tom Morris Monocytes/100 WBC (Bld) 8.0 % Normal 1.7-12.0 [facility] Comment on above: Performed By: #### C BC #### [facility] [address] [place] [id number] Tom Morris NEUT # 4.9 103/ul Normal 1.4-6.5 [facility] Comment on above: Performed By: #### C BC #### [facility] [address] [place] [id number] Tom Morris Neutrophils/100 WBC (Bld) 70.1 % Normal 43.0-75.0 [facility] Comment on above: Performed By: #### C BC #### [facility] [address] [place] [id number] Tom Morris Platelet mean volume (Bld) [Entitic vol] 10.3 fL Normal 9.5-13.5 [facility] Comment on above: Performed By: #### C BC #### [facility] [address] [place], [place] [id number] Tom Morris PLT 257 103/ul Normal 150-450 [facility] Comment on above: Performed By: #### C BC #### [facility] [address] [place], [place] [id number] Tom Morris RBC 3.52 106/ul Critically low 4.70-6.10 [facility] Comment on above: Performed By: #### C BC #### [facility] [address] [place], [place] [id number] Tom Morris WBC 7.0 103/ul Normal 4.0-11.0 [facility] Comment on above: Performed By: #### C BC #### [facility] [address] [place], [place] [id number] Tom Morris DIRECT LDLon 12-22-2020 Cholesterol in LDL [Mass/Vol] 57 mg/dL Normal [facility] Comment on above: Performed By: #### S EDR #### [facility] [address] [place], [place] [id number] Dr. Mary Lee DLD NORMAL SEE BELOW Normal [facility] Comment on above: Result Comment: <100 mg/dl OPTIMAL 100 - 129 mg/dl NEAR OR ABOVE OPTIMAL 130 - 159 mg/dl BORDERLINE HIGH 160 - 189 mg/dl HIGH >190 mg/dl VERY HIGH Performed By: #### S EDR #### [facility] [address] [place] [address] [address] Mary Lee LIPID PROFILEon 12-22-2020 CHOL-HDL RATIO NORM SEE BELOW Normal [facility] Comment on above: Result Comment: 3.3 - 4.4 LOW RISK 4.4 - 7.1 AVERAGE RISK 7.1 - 11.0 MODERATE RISK >11.0 HIGH RISK Performed By: #### S EDR #### [facility] [address] [place] [address] [address] Mary Lee Cholesterol [Mass/Vol] 139 mg/dL Normal <=200 [facility] Comment on above: Performed By: #### S EDR #### [facility] [address] [place] [address] [address] Mary Lee Cholesterol in HDL [Mass/Vol] 21 mg/dL Normal [facility] Comment on above: Performed By: #### S EDR #### [facility] [address] [place] [address] [address] Mary Lee Cholesterol.total/C holesterol in HDL [Mass ratio] 6.6 {ratio} Normal [facility] Comment on above: Performed By: #### S EDR #### [facility] [address] [place] [address] [address] Mary Lee HDL NORMAL > or = 60 mg/dl - LO W CARDIOVASCULAR RISK <40 mg/dl - HIGH CARDIOVASCULAR RISK Normal [facility] Comment on above: Performed By: #### S EDR #### [facility] [address] [place] [address] [address] Mary Lee LDL CALC NORMAL SEE BELOW Normal [facility] [place] [facility] Comment on above: Result Comment: <100 mg/dl OPTIMAL 100 - 129 mg/dl NEAR OR ABOVE OPTIMAL 130 - 159 mg/dl BORDERLINE HIGH 160 - 189 mg/dl HIGH >190 mg/dl VERY HIGH Performed By: #### S EDR #### [facility] [address] [place] [address] [address] Mary Lee Triglyceride [Mass/Vol] 652 mg/dL Critically high <=150 [facility] Comment on above: Performed By: #### S EDR #### [facility] [address] [place] [address] Dr. Mary Lee PROF 14(COMP METB)on 021 Albumin [Mass/Vol] 3.9 g/dL Normal 3.5-5.0 [facility] Comment on above: Performed By: #### S EDR #### [facility] [address] [place] [address] Dr. Mary Lee Albumin/Globulin [Mass ratio] 1.0 {ratio} Normal [facility] Comment on above: Performed By: #### S EDR #### [facility] [address] [place] [address] Dr. Mary Lee ALP [Catalytic activity/Vol] 47 U/L Normal 38-126 [facility] Comment on above: Performed By: #### S EDR #### [facility] [address] [place] [address] Dr. Mary Lee ALT [Catalytic activity/Vol] 27 U/L Normal 21-72 [facility] Comment on above: Performed By: #### S EDR #### [facility] [address] [place] [address] Dr. Mary Lee Anion gap [Moles/Vol] 16.0 mmol/L Normal [facility] Comment on above: Performed By: #### S EDR #### [facility] [address] [place] [address] Dr. Mary Lee AST [Catalytic activity/Vol] 16 U/L Critically low 17-59 [facility] Comment on above: Performed By: #### S EDR #### [facility] [address] [place] [address] Dr. Mary Lee Bilirubin [Mass/Vol] 0.4 mg/dL Normal 0.2-1.3 [facility] Comment on above: Performed By: #### S EDR #### [facility] [address] [place] [address] Dr. Mary Lee Calcium [Mass/Vol] 9.1 mg/dL Normal 8.4-10.2 [facility] Comment on above: Performed By: #### S EDR #### [facility] [address] [place] [address] [address] Mary Lee Chloride [Moles/Vol] 108 mmol/L Critically high 98-107 [facility] Comment on above: Performed By: #### S EDR #### [facility] [address] [place] [address] [address] Mary Lee CO2 [Moles/Vol] 20.5 mmol/L Critically low 22.0-30.0 [facility] Comment on above: Performed By: #### S EDR #### [facility] [address] [place] [address] [address] Mary Lee Creatinine [Mass/Vol] 1.78 mg/dL Critically high 0.66-1.25 [facility] Comment on above: Performed By: #### S EDR #### [facility] [address] [place] [address] Dr. Mary Lee EGFR-AF CYMRAES 47 mL/min/1.73m2 Critically low >=60 [facility] Comment on above: Performed By: #### S EDR #### [facility] [address] [place] [address] Dr. Mary Lee EGFR-NON AF CYMRAES 39 mL/min/1.73m2 Critically low >=60 [facility] Comment on above: Performed By: #### S EDR #### [facility] [address] [place] [address] Dr. Mary Lee Globulin (S) [Mass/Vol] 4.0 g/dL Normal [facility] Comment on above: Performed By: #### S EDR #### [facility] [address] [place] [address] [address] Mary Lee Glucose [Mass/Vol] 131 mg/dL Critically high 74-106 [facility] Comment on above: Performed By: #### S EDR #### [facility] [address] [place] [address] [address] Mary Lee Potassium [Moles/Vol] 4.5 mmol/L Normal 3.4-5.0 [facility] Comment on above: Performed By: #### S EDR #### [facility] [address] [place] [address] [address] Mary Lee Protein [Mass/Vol] 7.9 g/dL Normal 6.1-8.2 [facility] Comment on above: Performed By: #### S EDR #### [facility] [address] [place] [address] [address] Mary Lee Sodium [Moles/Vol] 140 mmol/L Normal 137-145 [facility] Comment on above: Performed By: #### S EDR #### [facility] [address] [place] [address] [address] Mary Lee Urea nitrogen [Mass/Vol] 44.0 mg/dL Critically high 9.0-20.0 [facility] Comment on above: Performed By: #### S EDR #### [facility] [address] [place] [address] [address] Mary Lee Urea nitrogen/Creatinine [Mass ratio] 24.7 mg/mg Normal [facility] Comment on above: Performed By: #### S EDR #### [facility] [address] [place] [address] [address] Mary Lee Vital Signs Date Time Vital Sign Value Performing Clinician Michelle harvey 10-31-2023 15:01-0500 Body temperature 97.7 [degF] d Al-Marrawi [facility] 10-31-2023 15:01-0500 Diastolic blood pressure 77 mm[Hg] d Al-Marrawi [facility] 10-31-2023 15:01-0500 Heart rate 77 /min d Al-Marrawi [facility] 10-31-2023 15:01-0500 Mean blood pressure 96 mm[Hg] d Al-Marrawi [facility] 10-31-2023 15:01-0500 Respiratory rate 16 /min d Al-Marrawi [facility] 10-31-2023 15:01-0500 SaO2% (BldA) [Mass fraction] 95 % Mhd Al-Marrawi [facility] 10-31-2023 15:01-0500 Systolic blood pressure 133 mm[Hg] Mhd Al-Marrawi [facility] 05-31-2023 15:00-0400 Blood Pressure Location Mhd Al-Marrawi [facility] 05-31-2023 15:00-0400 Body temperature 97.88 [degF] Mhd Al-Marrawi [facility] 05-31-2023 15:00-0400 Diastolic blood pressure 81 mm[Hg] Mhd Al-Marrawi [facility] 05-31-2023 15:00-0400 Heart rate 77 /min Mhd Al-Marrawi [facility] 05-31-2023 15:00-0400 Mean blood pressure 102 mm[Hg] Mhd Al-Marrawi [facility] 05-31-2023 15:00-0400 Respiratory rate 14 /min Mhd Al-Marrawi [facility] 05-31-2023 15:00-0400 SaO2% (BldA) [Mass fraction] 97 % Mhd Al-Marrawi [facility] 05-31-2023 15:00-0400 Systolic blood pressure 145 mm[Hg] Mhd Al-Marrawi [facility] 03-08-2023 15:00-0400 Blood Pressure Location Camille Gramajo [facility] 03-08-2023 15:00-0400 Body temperature 98.06 [degF] Camille Gramajo [facility] 03-08-2023 15:00-0400 Diastolic blood pressure 84 mm[Hg] Camille Gramajo [facility] 03-08-2023 15:00-0400 Heart rate 82 /min Camille Gramajo [facility] 03-08-2023 15:00-0400 Mean blood pressure 104 mm[Hg] Camille Gramajo [facility] 03-08-2023 15:00-0400 Respiratory rate 16 /min Camille Gramajo [facility] 03-08-2023 15:00-0400 SaO2% (BldA) [Mass fraction] 95 % Camille Gramajo [facility] 03-08-2023 15:00-0400 Systolic blood pressure 145 mm[Hg] Camille Gramajo [facility] 09-09-2022 15:31-0500 Blood Pressure Location Raul Byrd [facility] 09-09-2022 15:31-0500 Diastolic blood pressure 76 mm[Hg] Raul Byrd [facility] 09-09-2022 15:31-0500 Heart rate 80 /min Raul Byrd [facility] 09-09-2022 15:31-0500 SaO2% (BldA) [Mass fraction] 98 % Raul Byrd [facility] 09-09-2022 15:31-0500 Systolic blood pressure 124 mm[Hg] Raul Byrd [facility] 05-17-2022 17:45-0400 Blood Pressure Location Raul Byrd [facility] 05-17-2022 17:45-0400 Diastolic blood pressure 76 mm[Hg] Raul Byrd [facility] 05-17-2022 17:45-0400 Heart rate 82 /min Raul Byrd [facility] 05-17-2022 17:45-0400 SaO2% (BldA) [Mass fraction] 96 % Raul Byrd [facility] 05-17-2022 17:45-0400 Systolic blood pressure 136 mm[Hg] Raul Byrd [facility] 02-11-2022 16:30-0400 Diastolic blood pressure 80 mm[Hg] Raul Byrd [facility] 02-11-2022 16:30-0400 Mean blood pressure 101 mm[Hg] Raul Byrd [facility] 02-11-2022 16:30-0400 Systolic blood pressure 142 mm[Hg] Raul Byrd [facility] 02-11-2022 15:51-0400 Blood Pressure Location Raul Byrd [facility] 02-11-2022 15:51-0400 Diastolic blood pressure 82 mm[Hg] Raul Byrd [facility] 02-11-2022 15:51-0400 Heart rate 95 /min Raul Byrd [facility] 02-11-2022 15:51-0400 SaO2% (BldA) [Mass fraction] 98 % Raul Byrd [facility] 02-11-2022 15:51-0400 Systolic blood pressure 146 mm[Hg] Raul Byrd [facility] Encounters Encounter Date Encounter Type Care Provider Facility Start: 11-29-2023 End: 11-30-2023 ambulatory SHARI TURNER Facility:[facility] Start: 11-01-2023 ambulatory Mhd Al[place]Marrawi [place] [place]: 10-31-2023 End: 11-01-2023 ambulatory Mhd Yaser Al-Marrawi [place] [place] Start: 10-31-2023 End: 10-31-2023 Patient encounter procedure Mhd Yaser Al-Marrawi [facility] Start: 10-10-2023 End: 10-11-2023 ambulatory Raul Byrd [place] [place]: 10-10-2023 End: 10-10-2023 Lab Drop off Raul Byrd [facility] Start: 10-05-2023 End: 10-06-2023 ambulatory Mhd Yaser Al-Marrawi [place] [place]: 10-05-2023 End: 10-05-2023 Patient encounter procedure Mhd Yaser Al-Marrawi [facility] Start: 10-03-2023 End: 10-04-2023 ambulatory Mhd Yaser Al-Marrawi [place] [place]: 10-03-2023 End: 10-04-2023 ambulatory Mhd Yaser Al-Marrawi [place] [place] Start: 10-03-2023 End: 10-03-2023 Patient encounter procedure Mhd Yaser Al-Marrawi [facility] Start: 09-24-2023 End: 09-25-2023 ambulatory Mhd Yaser Al-Marrawi [place] [place]: 09-24-2023 End: 09-24-2023 Patient encounter procedure Mhd Yaser Al-Marrawi [facility] Start: 05-31-2023 End: 06-01-2023 ambulatory Mhd Yaser Al-Marrawi [place] [place]: 05-31-2023 End: 05-31-2023 Patient encounter procedure Mhd Yaser Al-Marrawi [facility] Start: 05-23-2023 End: 05-24-2023 ambulatory Mhd Yaser Al-Marrawi [place] [place]: 04-11-2023 End: 04-12-2023 ambulatory [facility] Start: 03-22-2023 End: 03-23-2023 ambulatory Mhd Yaser Al-Marrawi [place] [place]: 03-08-2023 End: 03-09-2023 ambulatory Mhd Yaser Al-Marrawi [place] [place] Start: 03-08-2023 End: 03-08-2023 Patient encounter procedure Camille Child Rox [facility] Start: 02-03-2023 End: 02-04-2023 ambulatory Camille Danyell Gramajo [place] [place] Start: 01-10-2023 End: 01-11-2023 ambulatory Raul Byrd [facility] Start: 09-09-2022 End: 09-09-2022 Lab Drop off Raul Byrd [facility] Start: 09-09-2022 End: 09-09-2022 Patient encounter procedure Raul Byrd [facility] Start: 05-17-2022 End: 05-17-2022 Patient encounter procedure Raul Byrd [facility] Start: 02-11-2022 End: 02-11-2022 Lab Drop off Raul Byrd [facility] Start: 02-11-2022 End: 02-11-2022 Patient encounter procedure Raul Byrd [facility] Start: 02-11-2022 End: 02-11-2022 Well adult monitoring check done Raul Byrd [facility] Start: 11-02-2021 End: 11-03-2021 ambulatory SHAIKH QUINTON Facility:[facility] Start: 10-31-2021 End: 10-31-2021 ambulatory MARIA ALEJANDRA ANDREA Facility:[facility] Start: 10-28-2021 End: 10-29-[address] HODA SAUCEDO Facility:[facility] Start: 10-15-2021 Encounter for genera l adult medical examination without abnormal findings RAUL BYRD [facility] Start: 10-13-2021 End: 10-14-2021 ambulatory RAUL BYRD Facility:[facility] Start: 10-13-2021 End: 10-14-2021 Encounter for general adult medical examination without abnormal findings RAUL BYRD Facility:[facility] Start: 12-22-2020 End: 12-23-2020 ambulatory RAUL BYRD Facility:[facility] Procedures Date Procedure Procedure Detail Performing Clinician Start: 10-13-2021 PSA screening MARIA ALEJANDRA CAMPOS Comment on above: Performed By: #### C RP, CMP #### [facility] [address] [place] [address] Dr. Mary Lee Start: 08-29-2018 Colonoscopy Raul de la torre Start: 08-29-2005 Transurethral prostatectomy Raul Byrd Start: 08-29-1962 History of tonsillectomy Raul Byrd Plan of Treatment Date Care Activity Detail Author Start: 04-02-2024 ambulatory Ambulatory Facility:[facility] Immunizations Immunization Date Immunization Notes Care Provider [facility] 05-14-2023 influenza virus vaccine, unspecified formulation Mhd Al-Marrawi [facility] 05-17-2022 influenza, high dose seasonal, preservative-free Raul Byrd [facility] 05-17-2022 influenza virus vaccine, unspecified formulation Raul Byrd [facility] 04-03-2022 SARS-CoV-2 (COVID-19 ) mRNA-1273 vaccine Mhd Al-Marrawi [facility] 10-04-2021 SARS-CoV-2 (COVID-19 ) mRNA-1273 vaccine Raul Sb [facility] 07-11-2021 SARS-CoV-2 (COVID-19 ) mRNA-1273 vaccine Mhd Al-Marrawi [facility] 06-12-2021 zoster vaccine, live Raul Byrd [facility] 06-01-2021 influenza virus vaccine, unspecified formulation Raul Byrd [facility] 06-10-2021 zoster vaccine, live Raul Byrd [facility] 12-03-2020 SARS-CoV-2 (COVID-19 ) mRNA-1273 vaccine Raul Byrd [facility] 11-04-2020 SARS-CoV-2 (COVID-19 ) mRNA-1273 vaccine Raul Byrd [facility] 05-13-2020 influenza virus vaccine, unspecified formulation Mhd Al-Marrawi [facility] 05-13-2020 pneumococcal conjuga te vaccine, 13 valent Raul Byrd [facility] 06-28-2018 influenza virus vaccine, unspecified formulation Mhd Al-Marrawi [facility] 08-16-2017 influenza virus vaccine, unspecified formulation Mhd Al-Marrawi [facility] 07-05-2016 influenza virus vaccine, unspecified formulation Mhd Al-Marrawi [facility] 09-13-2013 influenza virus vaccine, unspecified formulation Mhd Al-Marrawi [facility] Payers Date Payer Category Payer Private Health Insurance [id number] 1955 Unknown [id number] 2.16.84 [id number] 1955 Unknown [id number] 2.16.84 0.1.672958.3.579.2.593 1955 Unknown [id number] 2.16.84 0.1.319309.3.579.2.593 1955 Unknown [id number] 2.16.84 0.1.501667.3.579.2.593 1956 Unknown [id number] 2.16.84 0.1.180077.3.579.2.593 1956 Unknown [id number] 2.16.8 40.1.158201.3.579.2.72 1956 Unknown [id number] 2.16.8 40.1.173283.3.579.2.72 1956 Unknown [id number] 2.16.8 40.1.264582.3.579.2.72 1956 Unknown [id number] 2.16.8 40.1.442923.3.579.2.727 1956 Unknown [id number] 2.16.8 40.1.697770.3.579.2.72 1956 Unknown [id number] 2.16.8 40.1.136620.3.579.2.72 1956 Unknown [id number] 2.16.8 40.1.400415.3.579.2.727 1956 Unknown [id number] 2.16.8 40.1.695167.3.579.2.727 1956 Unknown [id number] 2.16.8 40.1.854358.3.579.2.727 1956 Unknown [id number] 2.16.8 40.1.075959.3.579.2.727 1956 Unknown [id number] 2.16.8 40.1.256057.3.579.2.72 1956 Unknown [id number] 2.16.8 40.1.820471.3.579.2.727 1956 Unknown [id number] 2.16.8 40.1.225201.3.579.2.727 1956 Unknown [id number] 2.16.8 40.1.975120.3.579.2.727 1956 Unknown [id number] 2.16.8 40.1.839726.3.579.2.727 1956 Unknown [id number] 2.16.8 40.1.819127.3.579.2.72 1956 Unknown [id number] 2.16.8 40.1.312264.3.579.2.727 1956 Unknown [id number] 2.16.8 40.1.607220.3.579.2.727 Social History Date Type Detail Facility Start: 02-11-2022 End: 10-10-2023 Tobacco smoking status Ex-smoker (finding) [facility] Tobacco smoking status Never [facility] Sex Assigned At Male [facility] Medical Equipment Procedure Code Equipment Code Equipment Origin al Text Equipment Identifier Dates IM 3ml syringes/needles 25gauge, 1 , See Instructions, 1 kit(s), 5, IM syringes/needles for B12 injections every 2 weeks, [id number], Supply, 172, cm, 05/31/23 15:29:00 EDT, Height/Length Dosing, 102.6, kg, 05/31/23 15:29:00 EDT, Weight Dosing Start: 05-31-2023 IM 3ml syringes/needles 25gauge, 1 , See Instructions, 1 kit(s), 5, IM syringes/needles for B12 injections every 2 weeks, [id number], Supply, 172, cm, 05/31/23 15:29:00 EDT, Height/Length Dosing, 102.6, kg, 05/31/23 15:29:00 EDT, Weight Dosing Start: 05-31-2023 IM 3ml syringes/needles 25gauge, 1 , See Instructions, 1 kit(s), 5, IM syringes/needles for B12 injections every 2 weeks, [id number], Supply, 172, cm, 10/03/23 15:12:00 EST, Height/Length Dosing, 102.3, kg, 10/03/23 15:12:00 EST, Weight Dosing Start: 10-03-2023 IM 3ml syringes/needles 25gauge, 1 , See Instructions, 1 kit(s), 5, IM syringes/needles for B12 injections every 2 weeks, [id number], Supply, 172, cm, 10/03/23 15:12:00 EST, Height/Length Dosing, 102.3, kg, 10/03/23 15:12:00 EST, Weight Dosing Start: 10-03-2023 IM 3ml syringes/needles 25gauge, 1 , See Instructions, 1 kit(s), 5, IM syringes/needles for B12 injections every 2 weeks, [id number], Supply, 172, cm, 10/03/23 15:12:00 EST, Height/Length Dosing, 102.3, kg, 10/03/23 15:12:00 EST, Weight Dosing Start: 10-03-2023 IM 3ml syringes/needles 25gauge, 1 , See Instructions, 1 kit(s), 5, IM syringes/needles for B12 injections every 2 weeks, [id number], Supply, 172, cm, 10/03/23 15:12:00 EST, Height/Length Dosing, 102.3, kg, 10/03/23 15:12:00 EST, Weight Dosing Start: 10-03-2023 Functional Status Date Assessment Result Facility 09-09-2022 Functional Status N/A [facility] 05-17-2022 Functional Status N/A [facility] 02-11-2022 Functional Status N/A [facility] Clinical Notes 11-04-2021 to 10-03-2023 LaboratoryLaboratoryLaboratoryLaboratoryLaboratory Note Date & Type Note Facility 10-03-2023 Hospital Discharge instructions Follow Up Care 10/03/2023 15:37:58 With:Navdeep LUNDY, Yariel Jin MED, ONC Address: When: Unknown Comments:-Continue B12 IM injection every 2 weeks at home. Alternatively can use B12 sublingual at 2500 mcg once daily.- Labs in 6 months: CBCD, CMP, LDH. B12, folate, copper and iron studies.- Return in 6 months for results. [facility] 03-22-2023 Hospital Discharge instructions Follow Up Care 03/22/2023 16:06:20 With:Yariel Sethi Address: [facility] [place] [address] [phone] Business (1) When: Unknown Comments:Plan:- Change B12 IM injection from weekly to every 2 weeks at home.- Refill his B12 will be sent to [facility].- Labs in 3 months: Peripheral blood flow cytometry for hereditary spherocytosis, Myeloma labs, Iron studies, folate, B12 level, CBCD, CMP and Retic count (since it was 2.0) and LDH.- RTC in 3 months. [facility] 09-09-2022 Hospital Discharge instructions Patient Education 09/09/2022 15:40:48 BMI for Adults BMI for Adults Body mass index (BMI) is a number that is calculated from a person's weight and height. BMI may help to estimate how much of a person's weight is composed of fat. BMI can help identify those who may be at higher risk for certain medical problems. How is BMI used with adults? BMI is used as a screening tool to identify possible weight problems. It is used to check whether a person is obese, overweight, healthy weight, or underweight. How is BMI calculated? BMI measures your weight and compares it to your height. This can be done either in [place] ([place] or metric measurements. Note that charts are available to help you find your BMI quickly and easily without having to do these calculations yourself. To calculate your BMI in [place] measurements, your health care provider will: 1.Measure your weight in pounds (lb). 2.Multiply the number of pounds by 703. For example, for a person who weighs 180 lb, multiply that number by 703, which equals 126,540. 3.Measure your height in inches (in). Then multiply that number by itself to get a measurement called inches squared. For example, for a person who is 70 in tall, the inches squared measurement is 70 in x 70 in, which equals 4900 inches squared. 4.Divide the total from Step 2 (number of lb x 703) by the total from Step 3 (inches squared): 126,540 4900 = 25.8. This is your BMI. To calculate your BMI in metric measurements, your health care provider will: 1.Measure your weight in kilograms (kg). 2.Measure your height in meters (m). Then multiply that number by itself to get a measurement called meters squared. For example, for a person who is 1.75 m tall, the meters squared measurement is 1.75 m x 1.75 m, which is equal to 3.1 meters squared. 3.Divide the number of kilograms (your weight) by the meters squared number. In this example: 70 3.1 = 22.6. This is your BMI. How is BMI interpreted? To interpret your results, your health care provider will use BMI charts to identify whether you are underweight, normal weight, overweight, or obese. The following guidelines will be used: Underweight: BMI less than 18.5. Normal weight: BMI between 18.5 and 24.9. Overweight: BMI between 25 and 29.9. Obese: BMI of 30 and above. Please note: Weight includes both fat and muscle, so someone with a muscular build, such as an athlete, may have a BMI that is higher than 24.9. In cases like these, BMI is not an accurate measure of body fat. To determine if excess body fat is the cause of a BMI of 25 or higher, further assessments may need to be done by a health care provider. BMI is usually interpreted in the same way for men and women. Why is BMI a useful tool? BMI is useful in two ways: Identifying a weight problem that may be related to a medical condition, or that may increase the risk for medical problems. Promoting lifestyle and diet changes in order to reach a healthy weight. Summary Body mass index (BMI) is a number that is calculated from a person's weight and height. BMI may help to estimate how much of a person's weight is composed of fat. BMI can help identify those who may be at higher risk for certain medical problems. BMI can be measured using Lao measurements or metric measurements. To interpret your results, your health care provider will use BMI charts to identify whether you are underweight, normal weight, overweight, or obese. This information is not intended to replace advice given to you by your health care provider. Make sure you discuss any questions you have with your health care provider. Document Released: 04/26/2005 Document Revised: 07/28/2018 Document Reviewed: 06/28/2018 [employer] Patient Education 2020 [employer] [facility] 05-17-2022 Hospital Discharge instructions Patient Education 05/17/2022 18:03:15 BMI for Adults BMI for Adults Body mass index (BMI) is a number that is calculated from a person's weight and height. BMI may help to estimate how much of a person's weight is composed of fat. BMI can help identify those who may be at higher risk for certain medical problems. How is BMI used with adults? BMI is used as a screening tool to identify possible weight problems. It is used to check whether a person is obese, overweight, healthy weight, or underweight. How is BMI calculated? BMI measures your weight and compares it to your height. This can be done either in [place] ([place] or metric measurements. Note that charts are available to help you find your BMI quickly and easily without having to do these calculations yourself. To calculate your BMI in [place] ([place] measurements, your health care provider will: 1.Measure your weight in pounds (lb). 2.Multiply the number of pounds by 703. For example, for a person who weighs 180 lb, multiply that number by 703, which equals 126,540. 3.Measure your height in inches (in). Then multiply that number by itself to get a measurement called inches squared. For example, for a person who is 70 in tall, the inches squared measurement is 70 in x 70 in, which equals 4900 inches squared. 4.Divide the total from Step 2 (number of lb x 703) by the total from Step 3 (inches squared): 126,540 4900 = 25.8. This is your BMI. To calculate your BMI in metric measurements, your health care provider will: 1.Measure your weight in kilograms (kg). 2.Measure your height in meters (m). Then multiply that number by itself to get a measurement called meters squared. For example, for a person who is 1.75 m tall, the meters squared measurement is 1.75 m x 1.75 m, which is equal to 3.1 meters squared. 3.Divide the number of kilograms (your weight) by the meters squared number. In this example: 70 3.1 = 22.6. This is your BMI. How is BMI interpreted? To interpret your results, your health care provider will use BMI charts to identify whether you are underweight, normal weight, overweight, or obese. The following guidelines will be used: Underweight: BMI less than 18.5. Normal weight: BMI between 18.5 and 24.9. Overweight: BMI between 25 and 29.9. Obese: BMI of 30 and above. Please note: Weight includes both fat and muscle, so someone with a muscular build, such as an athlete, may have a BMI that is higher than 24.9. In cases like these, BMI is not an accurate measure of body fat. To determine if excess body fat is the cause of a BMI of 25 or higher, further assessments may need to be done by a health care provider. BMI is usually interpreted in the same way for men and women. Why is BMI a useful tool? BMI is useful in two ways: Identifying a weight problem that may be related to a medical condition, or that may increase the risk for medical problems. Promoting lifestyle and diet changes in order to reach a healthy weight. Summary Body mass index (BMI) is a number that is calculated from a person's weight and height. BMI may help to estimate how much of a person's weight is composed of fat. BMI can help identify those who may be at higher risk for certain medical problems. BMI can be measured using Lao measurements or metric measurements. To interpret your results, your health care provider will use BMI charts to identify whether you are underweight, normal weight, overweight, or obese. This information is not intended to replace advice given to you by your health care provider. Make sure you discuss any questions you have with your health care provider. Document Released: 04/26/2005 Document Revised: 07/28/2018 Document Reviewed: 06/28/2018 [employer] Patient Education 2019 [employer] [facility] 02-11-2022 Hospital Discharge instructions Patient Education 02/11/2022 16:35:12 BMI for Adults BMI for Adults Body mass index (BMI) is a number that is calculated from a person's weight and height. BMI may help to estimate how much of a person's weight is composed of fat. BMI can help identify those who may be at higher risk for certain medical problems. How is BMI used with adults? BMI is used as a screening tool to identify possible weight problems. It is used to check whether a person is obese, overweight, healthy weight, or underweight. How is BMI calculated? BMI measures your weight and compares it to your height. This can be done either in [place] ([place] or metric measurements. Note that charts are available to help you find your BMI quickly and easily without having to do these calculations yourself. To calculate your BMI in [place] ([place] measurements, your health care provider will: 1.Measure your weight in pounds (lb). 2.Multiply the number of pounds by 703. For example, for a person who weighs 180 lb, multiply that number by 703, which equals 126,540. 3.Measure your height in inches (in). Then multiply that number by itself to get a measurement called inches squared. For example, for a person who is 70 in tall, the inches squared measurement is 70 in x 70 in, which equals 4900 inches squared. 4.Divide the total from Step 2 (number of lb x 703) by the total from Step 3 (inches squared): 126,540 4900 = 25.8. This is your BMI. To calculate your BMI in metric measurements, your health care provider will: 1.Measure your weight in kilograms (kg). 2.Measure your height in meters (m). Then multiply that number by itself to get a measurement called meters squared. For example, for a person who is 1.75 m tall, the meters squared measurement is 1.75 m x 1.75 m, which is equal to 3.1 meters squared. 3.Divide the number of kilograms (your weight) by the meters squared number. In this example: 70 3.1 = 22.6. This is your BMI. How is BMI interpreted? To interpret your results, your health care provider will use BMI charts to identify whether you are underweight, normal weight, overweight, or obese. The following guidelines will be used: Underweight: BMI less than 18.5. Normal weight: BMI between 18.5 and 24.9. Overweight: BMI between 25 and 29.9. Obese: BMI of 30 and above. Please note: Weight includes both fat and muscle, so someone with a muscular build, such as an athlete, may have a BMI that is higher than 24.9. In cases like these, BMI is not an accurate measure of body fat. To determine if excess body fat is the cause of a BMI of 25 or higher, further assessments may need to be done by a health care provider. BMI is usually interpreted in the same way for men and women. Why is BMI a useful tool? BMI is useful in two ways: Identifying a weight problem that may be related to a medical condition, or that may increase the risk for medical problems. Promoting lifestyle and diet changes in order to reach a healthy weight. Summary Body mass index (BMI) is a number that is calculated from a person's weight and height. BMI may help to estimate how much of a person's weight is composed of fat. BMI can help identify those who may be at higher risk for certain medical problems. BMI can be measured using Lao measurements or metric measurements. To interpret your results, your health care provider will use BMI charts to identify whether you are underweight, normal weight, overweight, or obese. This information is not intended to replace advice given to you by your health care provider. Make sure you discuss any questions you have with your health care provider. Document Released: 04/26/2005 Document Revised: 07/28/2018 Document Reviewed: 06/28/2018 [employer] Patient Education 2020 [employer] 02/11/2022 16:35:03 Chronic Kidney Disease, Adult Chronic Kidney Disease, Adult Chronic kidney disease (CKD) occurs when the kidneys become damaged slowly over a long period of time. The kidneys are a pair of organs that do many important jobs in the body, including: Removing waste and extra fluid from the blood to make urine. Making hormones that maintain the amount of fluid in tissues and blood vessels. Maintaining the right amount of fluids and chemicals in the body. A small amount of kidney damage may not cause problems, but a large amount of damage may make it hard or impossible for the kidneys to work the way they should. If steps are not taken to slow down kidney damage or to stop it from getting worse, the kidneys may stop working permanently (end-stage renal disease or ESRD). Most of the time, CKD does not go away, but it can often be controlled. People who have CKD are usually able to live normal lives. What are the causes? The most common causes of this condition are diabetes and high blood pressure (hypertension). Other causes include: Heart and blood vessel (cardiovascular) disease. Kidney diseases, such as: ?Glomerulonephritis. ?Interstitial nephritis. ?Polycystic kidney disease. ?Renal vascular disease. Diseases that affect the immune system. Genetic diseases. Medicines that damage the kidneys, such as anti-inflammatory medicines. Being around or being in contact with poisonous (toxic) substances. A kidney or urinary infection that occurs again and again (recurs). Vasculitis. This is swelling or inflammation of the blood vessels. A problem with urine flow that may be caused by: ?Cancer. ?Having kidney stones more than one time. ?An enlarged prostate, in males. What increases the risk? You are more likely to develop this condition if you: Are older than age 60. Are female. Are -Austrian, , , , or . Are a current or former smoker. Are obese. Have a family history of kidney disease or failure. Often take medicines that are damaging to the kidneys. What are the signs or symptoms? Symptoms of this condition include: Swelling (edema) of the face, legs, ankles, or feet. Tiredness (lethargy) and having less energy. Nausea or vomiting. Confusion or trouble concentrating. Problems with urination, such as: ?Painful or burning feeling during urination. ?Decreased urine production. ?Frequent urination, especially at night. ?Bloody urine. Muscle twitches and cramps, especially in the legs. Shortness of breath. Weakness. Loss of appetite. Metallic taste in the mouth. Trouble sleeping. Dry, itchy skin. A low blood count (anemia). Pale lining of the eyelids and surface of the eye (conjunctiva). Symptoms develop slowly and may not be obvious until the kidney damage becomes severe. It is possible to have kidney disease for years without having any symptoms. How is this diagnosed? This condition may be diagnosed based on: Blood tests. Urine tests. Imaging tests, such as an ultrasound or CT scan. A test in which a sample of tissue is removed from the kidneys to be examined under a microscope (kidney biopsy). These test results will help your health care provider determine how serious the CKD is. How is this treated? There is no cure for most cases of this condition, but treatment usually relieves symptoms and prevents or slows the progression of the disease. Treatment may include: Making diet changes, which may require you to avoid alcohol, salty foods (sodium), and foods that are high in potassium, calcium, and protein. Medicines: ?To lower blood pressure. ?To control blood glucose. ?To relieve anemia. ?To relieve swelling. ?To protect your bones. ?To improve the balance of electrolytes in your blood. Removing toxic waste from the body through types of dialysis, if the kidneys can no longer do their job (kidney failure). Managing any other conditions that are causing your CKD or making it worse. Follow these instructions at home: Medicines Take penx-cuh-ggpbmma and prescription medicines only as told by your health care provider. The dose of some medicines that you take may need to be adjusted. Do not take any new medicines unless approved by your health care provider. Many medicines can worsen your kidney damage. Do not take any vitamin and mineral supplements unless approved by your health care provider. Many nutritional supplements can worsen your kidney damage. General instructions Follow your prescribed diet as told by your health care provider. Do not use any products that contain nicotine or tobacco, such as cigarettes and e-cigarettes. If you need help quitting, ask your health care provider. Monitor and track your blood pressure at home. Report changes in your blood pressure as told by your health care provider. If you are being treated for diabetes, monitor and track your blood sugar (blood glucose) levels as told by your health care provider. Maintain a healthy weight. If you need help with this, ask your health care provider. Start or continue an exercise plan. Exercise at least 30 minutes a day, 5 days a week. Keep your immunizations up to date as told by your health care provider. Keep all follow-up visits as told by your health care provider. This is important. Where to find more information [employer]: www.aakp.org National Kidney Foundation: www.kidney.org [employer]: www.akfinc.org [facility]: www.lifeoptions.org and www.kidneyschool.org Contact a health care provider if: Your symptoms get worse. You develop new symptoms. Get help right away if: You develop symptoms of ESRD, which include: ?Headaches. ?Numbness in the hands or feet. ?Easy bruising. ?Frequent hiccups. ?Chest pain. ?Shortness of breath. ?Lack of menstruation, in women. You have a fever. You have decreased urine production. You have pain or bleeding when you urinate. Summary Chronic kidney disease (CKD) occurs when the kidneys become damaged slowly over a long period of time. The most common causes of this condition are diabetes and high blood pressure (hypertension). There is no cure for most cases of this condition, but treatment usually relieves symptoms and prevents or slows the progression of the disease. Treatment may include a combination of medicines and lifestyle changes. This information is not intended to replace advice given to you by your health care provider. Make sure you discuss any questions you have with your health care provider. Document Released: 05/24/2009 Document Revised: 07/28/2018 Document Reviewed: 09/22/2017 [employer] Patient Education 2020 [employer] 02/11/2022 16:34:57 Hypertension, Adult Hypertension, Adult High blood pressure (hypertension) is when the force of blood pumping through the arteries is too strong. The arteries are the blood vessels that carry blood from the heart throughout the body. Hypertension forces the heart to work harder to pump blood and may cause arteries to become narrow or stiff. Untreated or uncontrolled hypertension can cause a heart attack, heart failure, a stroke, kidney disease, and other problems. A blood pressure reading consists of a higher number over a lower number. Ideally, your blood pressure should be below 120/80. The first ( top ) number is called the systolic pressure. It is a measure of the pressure in your arteries as your heart beats. The second ( bottom ) number is called the diastolic pressure. It is a measure of the pressure in your arteries as the heart relaxes. What are the causes? The exact cause of this condition is not known. There are some conditions that result in or are related to high blood pressure. What increases the risk? Some risk factors for high blood pressure are under your control. The following factors may make you more likely to develop this condition: Smoking. Having type 2 diabetes mellitus, high cholesterol, or both. Not getting enough exercise or physical activity. Being overweight. Having too much fat, sugar, calories, or salt (sodium) in your diet. Drinking too much alcohol. Some risk factors for high blood pressure may be difficult or impossible to change. Some of these factors include: Having chronic kidney disease. Having a family history of high blood pressure. Age. Risk increases with age. Race. You may be at higher risk if you are . Gender. Men are at higher risk than women before age 45. After age 65, women are at higher risk than men. Having obstructive sleep apnea. Stress. What are the signs or symptoms? High blood pressure may not cause symptoms. Very high blood pressure (hypertensive crisis) may cause: Headache. Anxiety. Shortness of breath. Nosebleed. Nausea and vomiting. Vision changes. Severe chest pain. Seizures. How is this diagnosed? This condition is diagnosed by measuring your blood pressure while you are seated, with your arm resting on a flat surface, your legs uncrossed, and your feet flat on the floor. The cuff of the blood pressure monitor will be placed directly against the skin of your upper arm at the level of your heart. It should be measured at least twice using the same arm. Certain conditions can cause a difference in blood pressure between your right and left arms. Certain factors can cause blood pressure readings to be lower or higher than normal for a short period of time: When your blood pressure is higher when you are in a health care provider's office than when you are at home, this is called white coat hypertension. Most people with this condition do not need medicines. When your blood pressure is higher at home than when you are in a health care provider's office, this is called masked hypertension. Most people with this condition may need medicines to control blood pressure. If you have a high blood pressure reading during one visit or you have normal blood pressure with other risk factors, you may be asked to: Return on a different day to have your blood pressure checked again. Monitor your blood pressure at home for 1 week or longer. If you are diagnosed with hypertension, you may have other blood or imaging tests to help your health care provider understand your overall risk for other conditions. How is this treated? This condition is treated by making healthy lifestyle changes, such as eating healthy foods, exercising more, and reducing your alcohol intake. Your health care provider may prescribe medicine if lifestyle changes are not enough to get your blood pressure under control, and if: Your systolic blood pressure is above 130. Your diastolic blood pressure is above 80. Your personal target blood pressure may vary depending on your medical conditions, your age, and other factors. Follow these instructions at home: Eating and drinking Eat a diet that is high in fiber and potassium, and low in sodium, added sugar, and fat. An example eating plan is called the DASH (Dietary Approaches to Stop Hypertension) diet. To eat this way: ?Eat plenty of fresh fruits and vegetables. Try to fill one half of your plate at each meal with fruits and vegetables. ?Eat whole grains, such as whole-wheat pasta, brown rice, or whole-grain bread. Fill about one fourth of your plate with whole grains. ?Eat or drink low-fat dairy products, such as skim milk or low-fat yogurt. ?Avoid fatty cuts of meat, processed or cured meats, and poultry with skin. Fill about one fourth of your plate with lean proteins, such as fish, chicken without skin, beans, eggs, or tofu. ?Avoid pre-made and processed foods. These tend to be higher in sodium, added sugar, and fat. Reduce your daily sodium intake. Most people with hypertension should eat less than 1,500 mg of sodium a day. Do not drink alcohol if: ?Your health care provider tells you not to drink. ?You are , may be , or are planning to become . If you drink alcohol: ?Limit how much you use to: ?0 1 drink a day for women. ?0 2 drinks a day for men. ?Be aware of how much alcohol is in your drink. In the [place] one drink equals one 12 oz bottle of beer (355 mL), one 5 oz glass of wine (148 mL), or one 1 oz glass of hard liquor (44 mL). Lifestyle Work with your health care provider to maintain a healthy body weight or to lose weight. Ask what an ideal weight is for you. Get at least 30 minutes of exercise most days of the week. Activities may include walking, swimming, or biking. Include exercise to strengthen your muscles (resistance exercise), such as Pilates or lifting weights, as part of your weekly exercise routine. Try to do these types of exercises for 30 minutes at least 3 days a week. Do not use any products that contain nicotine or tobacco, such as cigarettes, e-cigarettes, and chewing tobacco. If you need help quitting, ask your health care provider. Monitor your blood pressure at home as told by your health care provider. Keep all follow-up visits as told by your health care provider. This is important. Medicines Take [id number] and prescription medicines only as told by your health care provider. Follow directions carefully. Blood pressure medicines must be taken as prescribed. Do not skip doses of blood pressure medicine. Doing this puts you at risk for problems and can make the medicine less effective. Ask your health care provider about side effects or reactions to medicines that you should watch for. Contact a health care provider if you: Think you are having a reaction to a medicine you are taking. Have headaches that keep coming back (recurring). Feel dizzy. Have swelling in your ankles. Have trouble with your vision. Get help right away if you: Develop a severe headache or confusion. Have unusual weakness or numbness. Feel faint. Have severe pain in your chest or abdomen. Vomit repeatedly. Have trouble breathing. Summary Hypertension is when the force of blood pumping through your arteries is too strong. If this condition is not controlled, it may put you at risk for serious complications. Your personal target blood pressure may vary depending on your medical conditions, your age, and other factors. For most people, a normal blood pressure is less than 120/80. Hypertension is treated with lifestyle changes, medicines, or a combination of both. Lifestyle changes include losing weight, eating a healthy, low-sodium diet, exercising more, and limiting alcohol. This information is not intended to replace advice given to you by your health care provider. Make sure you discuss any questions you have with your health care provider. Document Released: 08/15/2006 Document Revised: 04/25/2019 Document Reviewed: 04/25/2019 [employer] Patient Education 2020 [employer] 02/11/2022 16:34:50 Health Maintenance, Male Health Maintenance, Male Adopting a healthy lifestyle and getting preventive care are important in promoting health and wellness. Ask your health care provider about: The right schedule for you to have regular tests and exams. Things you can do on your own to prevent diseases and keep yourself healthy. What should I know about diet, weight, and exercise? Eat a healthy diet Eat a diet that includes plenty of vegetables, fruits, low-fat dairy products, and lean protein. Do not eat a lot of foods that are high in solid fats, added sugars, or sodium. Maintain a healthy weight Body mass index (BMI) is a measurement that can be used to identify possible weight problems. It estimates body fat based on height and weight. Your health care provider can help determine your BMI and help you achieve or maintain a healthy weight. Get regular exercise Get regular exercise. This is one of the most important things you can do for your health. Most adults should: Exercise for at least 150 minutes each week. The exercise should increase your heart rate and make you sweat (moderate-intensity exercise). Do strengthening exercises at least twice a week. This is in addition to the moderate-intensity exercise. Spend less time sitting. Even light physical activity can be beneficial. Watch cholesterol and blood lipids Have your blood tested for lipids and cholesterol at 20 years of age, then have this test every 5 years. You may need to have your cholesterol levels checked more often if: Your lipid or cholesterol levels are high. You are older than 40 years of age. You are at high risk for heart disease. What should I know about cancer screening? Many types of cancers can be detected early and may often be prevented. Depending on your health history and family history, you may need to have cancer screening at various ages. This may include screening for: Colorectal cancer. Prostate cancer. Skin cancer. Lung cancer. What should I know about heart disease, diabetes, and high blood pressure? Blood pressure and heart disease High blood pressure causes heart disease and increases the risk of stroke. This is more likely to develop in people who have high blood pressure readings, are of descent, or are overweight. Talk with your health care provider about your target blood pressure readings. Have your blood pressure checked: ?Every 3 5 years if you are 18 39 years of age. ?Every year if you are 40 years old or older. If you are between the ages of 65 and 75 and are a current or former smoker, ask your health care provider if you should have a one-time screening for abdominal aortic aneurysm (AAA). Diabetes Have regular diabetes screenings. This checks your fasting blood sugar level. Have the screening done: Once every three years after age 45 if you are at a normal weight and have a low risk for diabetes. More often and at a younger age if you are overweight or have a high risk for diabetes. What should I know about preventing infection? Hepatitis B If you have a higher risk for hepatitis B, you should be screened for this virus. Talk with your health care provider to find out if you are at risk for hepatitis B infection. Hepatitis C Blood testing is recommended for: Everyone born from 1945 through 1965. Anyone with known risk factors for hepatitis C. Sexually transmitted infections (STIs) You should be screened each year for STIs, including gonorrhea and chlamydia, if: ?You are sexually active and are younger than 24 years of age. ?You are older than 24 years of age and your health care provider tells you that you are at risk for this type of infection. ?Your sexual activity has changed since you were last screened, and you are at increased risk for chlamydia or gonorrhea. Ask your health care provider if you are at risk. Ask your health care provider about whether you are at high risk for HIV. Your health care provider may recommend a prescription medicine to help prevent HIV infection. If you choose to take medicine to prevent HIV, you should first get tested for HIV. You should then be tested every 3 months for as long as you are taking the medicine. Follow these instructions at home: Lifestyle Do not use any products that contain nicotine or tobacco, such as cigarettes, e-cigarettes, and chewing tobacco. If you need help quitting, ask your health care provider. Do not use street drugs. Do not share needles. Ask your health care provider for help if you need support or information about quitting drugs. Alcohol use Do not drink alcohol if your health care provider tells you not to drink. If you drink alcohol: ?Limit how much you have to 0 2 drinks a day. ?Be aware of how much alcohol is in your drink. In the [place] one drink equals one 12 oz bottle of beer (355 mL), one 5 oz glass of wine (148 mL), or one 1 oz glass of hard liquor (44 mL). General instructions Schedule regular health, dental, and eye exams. Stay current with your vaccines. Tell your health care provider if: ?You often feel depressed. ?You have ever been abused or do not feel safe at home. Summary Adopting a healthy lifestyle and getting preventive care are important in promoting health and wellness. Follow your health care provider's instructions about healthy diet, exercising, and getting tested or screened for diseases. Follow your health care provider's instructions on monitoring your cholesterol and blood pressure. This information is not intended to replace advice given to you by your health care provider. Make sure you discuss any questions you have with your health care provider. Document Released: 02/10/2009 Document Revised: 08/08/2019 Document Reviewed: 08/08/2019 [employer] Patient Education 2020 [employer] 02/11/2022 16:04:12 BMI for Adults BMI for Adults Body mass index (BMI) is a number that is calculated from a person's weight and height. BMI may help to estimate how much of a person's weight is composed of fat. BMI can help identify those who may be at higher risk for certain medical problems. How is BMI used with adults? BMI is used as a screening tool to identify possible weight problems. It is used to check whether a person is obese, overweight, healthy weight, or underweight. How is BMI calculated? BMI measures your weight and compares it to your height. This can be done either in [place] or metric measurements. Note that charts are available to help you find your BMI quickly and easily without having to do these calculations yourself. To calculate your BMI in [place] measurements, your health care provider will: 1.Measure your weight in pounds (lb). 2.Multiply the number of pounds by 703. For example, for a person who weighs 180 lb, multiply that number by 703, which equals 126,540. 3.Measure your height in inches (in). Then multiply that number by itself to get a measurement called inches squared. For example, for a person who is 70 in tall, the inches squared measurement is 70 in x 70 in, which equals 4900 inches squared. 4.Divide the total from Step 2 (number of lb x 703) by the total from Step 3 (inches squared): 126,540 4900 = 25.8. This is your BMI. To calculate your BMI in metric measurements, your health care provider will: 1.Measure your weight in kilograms (kg). 2.Measure your height in meters (m). Then multiply that number by itself to get a measurement called meters squared. For example, for a person who is 1.75 m tall, the meters squared measurement is 1.75 m x 1.75 m, which is equal to 3.1 meters squared. 3.Divide the number of kilograms (your weight) by the meters squared number. In this example: 70 3.1 = 22.6. This is your BMI. How is BMI interpreted? To interpret your results, your health care provider will use BMI charts to identify whether you are underweight, normal weight, overweight, or obese. The following guidelines will be used: Underweight: BMI less than 18.5. Normal weight: BMI between 18.5 and 24.9. Overweight: BMI between 25 and 29.9. Obese: BMI of 30 and above. Please note: Weight includes both fat and muscle, so someone with a muscular build, such as an athlete, may have a BMI that is higher than 24.9. In cases like these, BMI is not an accurate measure of body fat. To determine if excess body fat is the cause of a BMI of 25 or higher, further assessments may need to be done by a health care provider. BMI is usually interpreted in the same way for men and women. Why is BMI a useful tool? BMI is useful in two ways: Identifying a weight problem that may be related to a medical condition, or that may increase the risk for medical problems. Promoting lifestyle and diet changes in order to reach a healthy weight. Summary Body mass index (BMI) is a number that is calculated from a person's weight and height. BMI may help to estimate how much of a person's weight is composed of fat. BMI can help identify those who may be at higher risk for certain medical problems. BMI can be measured using [place]o measurements or metric measurements. To interpret your results, your health care provider will use BMI charts to identify whether you are underweight, normal weight, overweight, or obese. This information is not intended to replace advice given to you by your health care provider. Make sure you discuss any questions you have with your health care provider. Document Released: 04/26/2005 Document Revised: 07/28/2018 Document Reviewed: 06/28/2018 [employer] Patient Education 2020 [employer] [facility] [place] 11-06-2021 Note HNO ID: [id number] Author: Hanny Alcala MD Service: General Internal Medicine Author Type: Physician Type: Progress Notes Filed: 11/06/2021 7:15 PM Note Text: DEPARTMENT OF HOSPITAL MEDICINE PROGRESS NOTE SERVICE DATE: 11/06/2021 SERVICE TIME: 9:08 AM Hospital Medicine/Primary Attending: Hanny Alcala MD NIGHT AND WEEKEND COVERAGE: [facility] COVERAGE: Days: [phone], please page Hanny Alcala for patient issues. Nights: [id number], please page Team GIM 3: G/H 8th floor: [id number]; Non 8th floor [id number] Subjective INTERVAL HPI: Patient reports feeling somewhat better today, pain in grain improved, but still present. No fevers or chills. Pain in mid thoracic back still present but better. No BM but passing gas, feels more distended. No urinary symptoms. Current Facility-Administered Medications Medication Dose Route Frequency - sodium chloride 0.9 % (flush) 3-5 mL (BD POSIFLUSH) 3-5 mL INTRAVENOUS q 12 H - NaCl 0.9% iv flush bag 20 mL INTRAVENOUS PRN - acetaminophen 650 mg tab(s) (TYLENOL) 650 mg ORAL q 6 H PRN - polyethylene glycol 3350 17 g packet (MIRALAX, GLYCOLAX) 17 g ORAL DAILY - heparin 5,000 Units injection 5,000 Units SUBCUTANEOUS q 12 H - oxyCODONE IR 5 mg tab(s) (ROXICODONE) 5 mg ORAL q 3 H PRN - lidocaine 4 % 1 Patch (SALONPAS) 1 Patch TRANSDERMAL DAILY AT 9 PM And - lidocaine patch - REMOVE OTHER DAILY And - lidocaine - VERIFY PATCH OTHER q 8 H - morphine 4 mg injection 4 mg INTRAVENOUS q 8 H PRN - sulfamethoxazole-trimethoprim 800-160 mg 1 tablet (BACTRIM DS,SEPTRA DS) 1 tablet ORAL q 12 H - dextrose 40 % 15 g 15 g ORAL PRN Or - glucagon 1 mg injection 1 mg INTRAMUSCULAR PRN Or - dextrose 50% in water 25 mL syringe 12.5 g INTRAVENOUS PRN - insulin lispro injection (rapid acting) (HumaLOG) SUBCUTANEOUS w MEALS AND HS - ondansetron orally disintegrating 4 mg tab(s) (ZOFRAN ODT) 4 mg ORAL q 6 H PRN Or - ondansetron (PF) 4 mg injection (ZOFRAN) 4 mg INTRAVENOUS q 6 H PRN - iv contrast (radiology procedure) INTRAVENOUS DIRECTED PRN - senna 8.6 mg tab(s) (SENOKOT) 8.6 mg ORAL BID Objective PHYSICAL EXAM: BP 105/50 Pulse 76 Temp (Src) 97.2 (Oral) Resp 18 Ht 5' 9.016 (1.75m) Wt 235 lb 10.8 oz (106.9kg) SpO2 94% BMI 34.79 kg/(m2). O2 Therapy: Room Air Physical Exam Performed GENERAL: Alert, no distress, cooperative EYES: EOMI LUNGS: Lungs clear to auscultation, Good diaphragmatic excursion CARDIAC: Normal S1 and S2; no rubs, murmurs, or gallops ABDOMEN: Abdomen soft, non-tender, protuberant BS normal, No masses or organomegaly Genital exam: non tender groin, testes, scrotum, no penile discharge EXTREMITIES: trace pretibial edema Back: TTP around T10 NEURO: AxOx3, Cranial nerves II-XII intact. LE: b/l foot strength 5/5, right leg flexion limited due to exacerbation of right groin pain, ext 5/5. Strength 5/5 left leg, though somewhat limited due to pain. No sensory deficit The remainder of the physical exam is noncontributory. ? Lines, Drains, and Airways Line Peripheral 11/04/21 1246 Right Antecubital 20 Gauge 1 day Reviewed lines and needs to be continued: REASONS: IV meds DATA: Diagnostic tests reviewed for today's visit: Most recent labs Most recent imaging Assessment/Plan Problem List Groin pain POA: . Right epididymitis POA: . Primary hypertension POA: . Type 2 diabetes mellitus with other specified complication (HCC) POA: . Stage 3 chronic kidney disease (HCC) POA: . Prostate cancer (HCC) POA: . Epididymitis POA: Yes Obesity, Class I, BMI 30-34.9 POA: . HOSPITAL COURSE: Kenyetta Schumacher is a 66 year old male with PMHx of HTN, CKD 3, diabetes, prostate cancer, left adrenal nodule, nicotine dependence, bilateral hydroceles, who presents to the ER with groin pain that started all of a sudden on 10/28/21 - similar to presentation of BLANCA last year, now with findings of myositis on MRI in the proximal adductor compartments as well as finding of right epididymitis. Active Problems: Groin pain, L > R Right epididymitis Mid-lower back pain Inability to ambulate - Presented to [facility] ER on 10/28/21 with groin pain, workup at that time including CT A/P, MRI lumbar spine, scrotal US, CRP, UA were negative. - US scrotum showing right epididimitis. CRP 14.2, ESR 117. No leukocytosis. -Negative UA. CT A/P without acute process. -MRI revealing of myositis within proximal adductor compartments and L5-S1 with a right sided synovial cyst causing mild mass effect on the exiting right L5 nerve root (question if clinically relevant) - neg gonorrhea, chlamydia NAAT Plan - continue empiric bactrim for epididymitis. Avoid FQ due to concern in ER for ?tendonitis - trend CRP, ESR, fever curve - appreciate input from urology - consult rheumatology - appreciate reccs - discuss MRI findings with spine - they do not feel the finding is clinically relevant nor does it correlate (more content not included)... [place] [facility] Note HNO ID: [id number] Author: Hanny Alcala MD Service: General Internal Medicine Author Type: Physician Type: Progress Notes Filed: 11/05/2021 5:51 PM Note Text: DEPARTMENT OF HOSPITAL MEDICINE PROGRESS NOTE SERVICE DATE: 11/05/2021 SERVICE TIME: 10:36 AM Hospital Medicine/Primary Attending: Hanny Alcala MD NIGHT AND WEEKEND COVERAGE: [facility] C[facility]: Days: [phone], please page Hanny Alcala for patient issues. Nights: [phone], please page Team GIM 3: G/H 8th floor: [address]; Non 8th floor [address] Subjective INTERVAL HPI: Admitted overnight. Pain in R>L groin has not changed. No pain upon palpation of groin or testicles. Pain only occurs with weight bearing or feels pulling sensation on grown when he lifts right leg. Pain described as sharp, starts in the groin and shoots into testicle then down and out the penis. No discharge, no blood. No sexual intercourse in >1 month due to history of prostate cancer. Has been checking his PSA with his PCP yearly, and has been told that it is normal - no follow up with urology otherwise. No recent falls. No knee or hip pain. Did notice back pain, sol in thoracic area, that has worsened with use of a walker that he started because of the groin pain. No vision changes, no changes in test, smell, no fevers, chills, sweats, no weight changes, eating well. States he has good urine output without feeling any residual. No dribbling. No bleeding, bruising. Current Facility-Administered Medications Medication Dose Route Frequency - iv contrast (radiology procedure) INTRAVENOUS DIRECTED PRN - valsartan 160 mg tab(s) (DIOVAN) 160 mg ORAL DAILY - sodium chloride 0.9 % (flush) 3-5 mL (BD POSIFLUSH) 3-5 mL INTRAVENOUS q 12 H - NaCl 0.9% iv flush bag 20 mL INTRAVENOUS PRN - acetaminophen 650 mg tab(s) (TYLENOL) 650 mg ORAL q 6 H PRN - polyethylene glycol 3350 17 g packet (MIRALAX, GLYCOLAX) 17 g ORAL DAILY - heparin 5,000 Units injection 5,000 Units SUBCUTANEOUS q 12 H - oxyCODONE IR 5 mg tab(s) (ROXICODONE) 5 mg ORAL q 3 H PRN - lidocaine 4 % 1 Patch (SALONPAS) 1 Patch TRANSDERMAL DAILY AT 9 PM And - lidocaine patch - REMOVE OTHER DAILY And - lidocaine - VERIFY PATCH OTHER q 8 H - morphine 4 mg injection 4 mg INTRAVENOUS q 8 H PRN - sulfamethoxazole-trimethoprim 800-160 mg 1 tablet (BACTRIM DS,SEPTRA DS) 1 tablet ORAL q 12 H - dextrose 40 % 15 g 15 g ORAL PRN Or - glucagon 1 mg injection 1 mg INTRAMUSCULAR PRN Or - dextrose 50% in water 25 mL syringe 12.5 g INTRAVENOUS PRN - insulin lispro injection (rapid acting) (HumaLOG) SUBCUTANEOUS w MEALS AND HS - iv contrast (radiology procedure) INTRAVENOUS DIRECTED PRN - iv contrast (radiology procedure) INTRAVENOUS DIRECTED PRN Objective PHYSICAL EXAM: BP 123/57 Pulse 96 Temp (Src) 98.1 (Oral) Resp 17 Ht 5' 9.016 (1.75m) Wt 235 lb 10.8 oz (106.9kg) SpO2 94% BMI 34.79 kg/(m2). O2 Therapy: Room Air Physical Exam Performed GENERAL: Alert, no distress, cooperative EYES: EOMI LUNGS: Lungs clear to auscultation, Good diaphragmatic excursion CARDIAC: Normal S1 and S2; no rubs, murmurs, or gallops ABDOMEN: Abdomen soft, non-tender, BS normal, No masses or organomegaly Genital exam: non tender groin, testes, scrotum, no penile discharge EXTREMITIES: no edema Back: TTP around T10 NEURO: AxOx3, Cranial nerves II-XII intact. LE: b/l foot strength 5/5, right leg flexion limited due to exacerbation of right groin pain, ext 5/5. Strength 5/5 left leg, though somewhat limited due to pain. No sensory deficit The remainder of the physical exam is noncontributory. ? Lines, Drains, and Airways Line Peripheral 11/04/21 1246 Right Antecubital 20 Gauge <1 day Reviewed lines and needs to be continued: REASONS: IV meds DATA: Diagnostic tests reviewed for today's visit: Most recent labs Most recent imaging Assessment/Plan Problem List Groin pain POA: . Right epididymitis POA: . Primary hypertension POA: . Type 2 diabetes mellitus with other specified complication (HCC) POA: . Stage 3 chronic kidney disease (HCC) POA: . Prostate cancer (HCC) POA: . Epididymitis POA: Yes Obesity, Class I, BMI 30-34.9 POA: . HOSPITAL COURSE: Kenyetta Schumacher is a 66 year old male with PMHx of HTN, CKD 3, diabetes, prostate cancer, left adrenal nodule, nicotine dependence, bilateral hydroceles, who presents to the ER with groin pain that started all of a sudden on 10/28/21. Active Problems: Groin pain, L > R Right epididymitis Mid-lower back pain Inability to ambulate Presented to [facility]SH ER on 10/28/21 with groin pain, workup at that time including CT A/P, MRI lumbar spine, scrotal US, CRP, UA were negative. Workup in ER today with US scrotum showing right epididimitis. CRP 14.2, ESR 117. No leukocytosis. Negative UA. CT A/P without acute process. Plan - continue empiric bactrim for epididymitis. Avoid FQ due to concern in ER for ?t (more content not included)... [facility] 11-04-2021 Note HNO ID: [id number] Author: RT Bing(R) Service: Radiology Author Type: Technologist Type: Progress Notes Filed: 11/04/2021 3:07 PM Note Text: Radiology Service Progress Note DATE OF SERVICE: November 04, 2021 TIME: 3:03 PM PATIENT IDENTITY VERIFICATION COMPLETED USING TWO (2) STANDARD IDENTIFIERS: Name and Date of confirmed by patient verbally. FALL SCREENING: Has the patient had 2 falls in the last year or 1 fall with injury or currently using an Ambulatory Assistive Device (Walker, Cane, Wheelchair, Crutches, etc.)? Emergency Room Patient: Screened in ED PATIENT GENDER DATA: Male PATIENT RELEVANT IMPLANT DATA REVIEWED: Yes ALLERGIES: Reviewed and unchanged CONTRAST ALLERGY: NO. EXAM: CT -CONTRAST INDUCED NEPHROPATHY RISK FACTORS: Patient age > 60 years CREATININE: Creatinine Date Value Ref Range Status 11/04/2021 1.80 (H) 0.73 - 1.22 mg/dL Final Estimated Glomerular Filtration Rate Date Value Ref Range Status 11/04/2021 41 (L) >=60 mL/min/1.73m? Final Comment: Estimated Glomerular Filtration Rate (eGFR) is calculated using the 2020 CKD-EPI creatinine equation. This equation utilizes serum creatinine, sex, and age as parameters. The creatinine assay has traceable calibration to isotope dilution-mass spectrometry. Refer to KDIGO guidelines for clinical interpretation. In patients with unstable renal function, e.g. those with acute kidney injury, the eGFR may not accurately reflect actual GFR. P.O.C.T. RESULTS: POC done: Yes, See Lab Tab November 04, 2021 TREATMENT: N/A PERIPHERAL IV DATA: Inpatient - refer to LDA documentation RADIOLOGY DEPARTMENT: CT; Exam(s) Completed: Abdomen/Pelvis SIGNATURE: RT Bing(R) PATIENT NAME: Kenyetta Schumacher DATE: November 04, 2021 TIME: 3:03 PM [facility] 11-04-2021 Note HNO ID: [id number] Author: ALEX Myers Service: Care Management Author Type: Channel Lip Stiffener Insoles Type: Care Mgt Initial Assessment Filed: 11/04/2021 2:03 PM Note Text: CARE MANAGEMENT: ASSESSMENT AND DISCHARGE PLAN SERVICE DATE: November 04, 2021 SERVICE TIME: 2:03 PM PRIMARY CARE PHYSICIAN: Shaikh Quinton MD ADMISSION STATUS: Emergency Needs Prior to Discharge: To Be Determined MEDICAL: [employer] 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 : 1 - Never How confident are you filling out medical forms by yourself?: 1 - Extremely Baseline Mental Status Prior to this Illness what was the patient's Baseline Mental Status?: Alert AND Oriented Prior to this illness, has anyone described the patient having any of the following behaviors?: Not Applicable Relationship of the informant to the patient:: Self Functional Status: Independent Does Patient Currently Receive Any Community Services or Home Care?: None Equipment Prior to Admission: Rollator Scooter Has the Patient Been in a Retirement Facility in the Past 30 days?: No SOCIAL: Living Arrangements: Home Lives With: Spouse Financial Resources: Employed Primary Contact: No emergency contact information on file. Supportive Patient Contact:: Yes Contact Resources: Family Caregiver AssessmentCaregiver is ready, willing and able to meet the patient's needs as recommended by the inter-professional team:: Yes Does the patient have an acute stroke diagnosis, or has the patient had a stroke during this admission?: No Patient's perception of need for this admission: pain Medication Adherance I am convinced of the importance of my prescription medication: 0 - Agree Completely I worry that my prescription medication will do more harm than good to me : 0 - Disagree Completely I feel financially burdened by my [id number] expenses for my prescription medication:: 0 - Disagree Completely Risk Score: 0 Patient is categorized as: Low risk < 2 Are you interested in bedside delivery of your medications? No Is Patient Psychosocially Complex?: No ASSESSMENT AND PLAN: Medical Needs: Medical Needs: Other Needs (Pain) Psychosocial Needs: Psychosocial Needs: None FREEDOM OF CHOICE EXPLAINED: [place] of Choice Given: No Reason Not Given: Unable to complete with this assessment - revisit POTENTIAL TRANSITION PLANS To Be Determined SW met with pt, pt's spouse, pt's son at bedside. Pt from [place]. Pt reports he has had multiple ED visits recently for this back/groin pain. Pt has been using a rollator for approx 10 days. Prior to this, pt totally independent. 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 Pt takes 2 medications Denies any food/financial insecurity. Family will provide transportation at d/c. Geriatrics consulted. SW will continue to follow while pt remains in ED SIGNATURE: ALEX Myers PATIENT NAME: Kenyetta Schumacher DATE: November 04, 2021 TIME: 2:01 PM PAGER/CONTACT #: [phone] [facility] Evaluation + Plan note Future Appointments Appointment Date:08/13/2022 03:20:00 PM Scheduled Provider:Raul Byrd MD Location:[facility] Appointment Type:[facility] Evaluation + Plan note Future Appointments Appointment Date:08/13/2022 03:20:00 PM Scheduled Provider:Raul Byrd MD Location:[facility] Appointment Type: Open Diagnostic Tests PendingCBC w/ Auto Diff 02/11/22Comprehensive Metabolic Panel 02/11/22Lipid Panel 02/11/2204IkmB8q 02/11/22Microalbumin Level Urine 02/11/22 [facility] Evaluation + Plan note Future Appointments Appointment Date:12/08/2022 03:00:00 PM Scheduled Provider:Raul Byrd MD Location:[facility] Appointment Type:[facility] Evaluation + Plan note Future Appointments Appointment Date:12/08/2022 03:00:00 PM Scheduled Provider:Raul Byrd MD Location:[facility] Appointment Type: Open Diagnostic Tests PendingCBC w/ Auto Diff 09/09/22Comprehensive Metabolic Panel 09/09/22Lipid Panel 09/09/2265JrmY5r 09/09/22PSA Free & Total 09/09/22 [facility] Evaluation + Plan note Future Appointments Appointment Date:03/22/2023 03:30:00 PM Scheduled Provider: Location:[facility] Appointment Type:ONC Office Visit 30 (FT) Appointment Date:04/11/2023 02:20:00 PM Scheduled Provider:Raul Byrd MD Location:[facility] Appointment Type:[facility] Evaluation + Plan note Future Appointments Appointment Date:03/22/2023 03:30:00 PM Scheduled Provider: Location:[facility] Appointment Type:ONC Office Visit 30 (FT) Appointment Date:04/11/2023 02:20:00 PM Scheduled Provider:Raul Byrd MD Location:[facility] Appointment Type:FM Open Diagnostic Tests PendingCopper Level 03/08/23 [facility] Evaluation + Plan note Future Appointments Appointment Date:09/06/2023 03:30:00 PM Scheduled Provider: Location:.ONCOLOGY Appointment Type:ONC Office Visit 30 (FT) Appointment Date:10/10/2023 01:20:00 PM Scheduled Provider:Raul Byrd MD Location:[facility] Appointment Type:FM Open Diagnostic Tests PendingReticulocyte Count 05/31/23 Future Scheduled TestsU Protein/Creat Ratio 04/11/2382MmyE3y 04/11/23Microalbumin Level Urine 04/11/23IFE and PE, Serum 08/26/23Immunoglobs. A/E/G/M 08/26/23Free K+L Lt Chains,Qn,S 08/26/23CBC w/ Auto Diff 08/26/23Comprehensive Metabolic Panel 08/26/23Ferritin 08/26/23Folate Level 08/26/23Iron Level 08/26/23Iron Percent Saturation 08/26/23Lactate Dehydrogenase 08/26/23Transferrin 08/26/23Vitamin B12 Level 08/26/23 [facility] Evaluation + Plan note Future Appointments Appointment Date:10/03/2023 03:00:00 PM Scheduled Provider: Location:.ONCOLOGY Appointment Type:ONC Office Visit 30 (FT) Appointment Date:10/10/2023 01:15:00 PM Scheduled Provider:Raul Byrd MD Location:[facility] Appointment Type:FM Open Diagnostic Tests PendingPath. Review 09/24/23IFE and PE, Serum 09/24/23Free K+L Lt Chains,Qn,S 09/24/23Immunoglobs. A/E/G/M 09/24/23 Future Scheduled TestsU Protein/Creat Ratio 04/11/2319OgwT7g 04/11/23Microalbumin Level Urine 04/11/23 [facility] Evaluation + Plan note Future Appointments Appointment Date:10/10/2023 01:15:00 PM Scheduled Provider:Raul Byrd MD Location:[facility] Appointment Type:FM Open Appointment Date:10/31/2023 03:00:00 PM Scheduled Provider:Yariel Sethi MD Location:.ONCOLOGY Appointment Type:ONC Office Visit 30 (FT) Future Scheduled TestsU Protein/Creat Ratio 04/11/2376PswH8m 04/11/23Microalbumin Level Urine 04/11/23 [facility] Evaluation + Plan note Future Appointments Appointment Date:10/31/2023 03:00:00 PM Scheduled Provider:Yariel Sethi MD Location:[facility] Appointment Type:ONC Office Visit 30 (FT) Appointment Date:04/02/2024 01:00:00 PM Scheduled Provider:Raul Byrd MD Location:[facility] Appointment Type: Open Diagnostic Tests [id number] 10/10/23 Future Scheduled TestsU Protein/Creat Ratio [id number] 04/11/23Microalbumin Level Urine 04/11/23 [facility] Evaluation + Plan note Future Appointments Appointment Date:04/02/2024 01:00:00 PM Scheduled Provider:Raul Byrd MD Location:[facility] Appointment Type: Open Future Scheduled TestsU Protein/Creat Ratio 04/11/2381ZikC6t 04/11/23Copper Level 03/26/24Microalbumin Level Urine 04/11/23CBC w/ Auto Diff 03/26/24Comprehensive Metabolic Panel 03/26/24Ferritin 03/26/24Folate Level 03/26/24Iron Level 03/26/24Iron Percent Saturation 03/26/24Lactate Dehydrogenase 03/26/24Transferrin 03/26/24Vitamin B12 Level 03/26/24 [facility] Hospital course Narrative No data available for this section [facility] Discharge instructions No data available for this section [facility] Progress note No data available for this section [facility] [place] Summary Purpose Family History No Family History Records FoundNo Family History Records FoundNo Family History Records FoundNo Family History Records Found No data available for this section No data available for this section No data available for this section No data available for this section No data available for this section No data available for this section No Family History Records Found Advance Directives No Advanced Directives Records FoundNo Advanced Directives Records FoundNo Advanced Directives Records FoundNo Advanced Directives Records FoundNo Advanced Directives Records Found Additional Source Comments (unrecognized sect ion and content) No Status Records FoundNo Status Records FoundNo Status Records FoundNo Status Records FoundNo Status Records Found INFORMATION SOURCE (unrecogn ized section and content) DATE CREATED AUTHOR 01/19/2021 [facility] DATE CREATED AUTHOR AUTHOR'S ORGANIZ ATION 09/10/2021 [facility] DATE CREATED AUTHOR AUTHOR'S ORGANIZ ATION 11/06/2021 [facility] DATE CREATED AUTHOR AUTHOR'S ORGANIZ ATION 11/20/2021 [facility] DATE CREATED AUTHOR AUTHOR'S ORGANIZ ATION 11/30/2023 [facility] Care Team (unrecognized sect ion and content) Personnel Name: Raul Byrd MD Address: [address] [place] [address] Personnel Name: Raul Byrd MD Address: [address] [place] [address] Personnel Name: Raul Byrd MD Address: [address] [place] [address] Personnel Name: Raul Byrd MD Address: Address: [address] [place] [address] Personnel Name: Raul Byrd MD Address: Address: [address] [place] [address] Personnel Name: Raul Byrd MD Address: Address: [address] [place] [address] Personnel Name: Raul Byrd MD Address: Address: [address] [place] [address] Personnel Name: Raul Byrd MD Address: Address: [address] [place] [address] Personnel Name: Raul Byrd MD Address: Address: [address] [place] [address] Personnel Name: Raul Byrd MD Address: Address: [address] [place] [address] Personnel Name: Raul Byrd MD Address: [facility] [place] Personnel Name: Raul Byrd MD Address: Address: [facility] [address] Personnel Name: Raul Byrd MD Address: Address: [address] [place] [address] FOR RECORDS PERTAINING TO PATIENTS WHO ARE OR HAVE BEEN ENROLLED IN A CHEMICAL DEPENDENCY/SUBSTANCEABUSE PROGRAM, SOME INFORMATION MAY BE OMITTED. This clinical summary was aggregated from multiple sources. Caution should be exercised in using it in the provision of clinical care. This summary normalizes information from multiple sources, and as a consequence, information in this document may materially change the coding, format and clinical context of patient data. In addition, data may be omitted in some cases. CLINICAL DECISIONS SHOULD BE BASED ON THE PRIMARY CLINICAL RECORDS. [facility] [employer] [facility]. provides no warranty or guarantee of the accuracy or completeness of information in this document.
--- NOTE | 2023-12-03 18:48 | XR_ITS ---
The [address] [address] Patient Name: KENYETTA WEST MRN: [id number] date: 1955 Sex: M Assigned Patient Location: ER Current Patient Location: ED.MAIN Accession/Order Number: [id number] Exam Date: 12/03/2023 19:10 Report Date: 12/03/2023 20:08 At the request of: AGUSTIN DANIELSON Procedure: XR chest 1V EXAM: XR chest 1V HISTORY: pain COMPARISON: None. TECHNIQUE: Single view of the chest FINDINGS: Cardiomegaly. Calcified left lung nodule. No focal consolidation, pleural effusion, pulmonary congestion or pneumothorax. XR/XR chest 1V IMPRESSION: No acute findings. Electronically authenticated by: ENMANUEL HERNANDEZ Date: 12/03/2023 20:08
--- NOTE | 2023-12-03 18:48 | ECG_ITS ---
The [facility] Test Date: 2023-12-03 Pat Name: KENYETTA WEST Department: Room: - Gender: Male [employer] C[employer]: : 1955 Requested By: RAUL BYRD Order Number: [id number] Reading MD: BAYLEE MARSH Measurements Intervals [place]ound Rate: 75 P: 49 SD: 172 QRS: 88 QRSD: 106 T: 54 QT: 370 QTc: 399 Interpretive Statements 1100 Sinus rhythm 2440 Incomplete right bundle branch block 9130 borderline ECG Compared to ECG 02/17/2018 22:33:42 Incomplete right bundle-branch block now present Electronically Signed On 12-04-2023 7:40:25 EDT by BAYLEE MARSH
--- NOTE | 2023-12-03 18:51 | ED_ITS ---
HPI - Chest Pain General Chief Complaint: Upper Respiratory Infection Stated Complaint: Upper Respiratory Infection Time Seen by Provider: 12/03/23 18:36 History of Present Illness HPI narrative: 68-year-old male presents here to the emergency room with chief complaint of burning sensation in his chest. Patient states he had a burning sensation and pressure in his chest yesterday. He states that then released. He states he has an upper respiratory infection, influenza he feels over the last couple of weeks. He states today he tried to go out for a walk and developed a burning sensation around 11:00 this morning and continues until he arrives here to the emergency room. He denies any radiation of his pain. He denies any vomiting, nausea fever or chills. He denies cardiac history himself. He has a history of type 2 diabetes. He denies a history of smoking. He states his last stress test was over 10 years ago. He does have a family history of coronary artery arrest by his mom and dad but they were both elderly. Patient's vital signs are stable. He is not tachycardic.Patient did arrive by private car. at bedside Related Data Home Medications ?Medication ?Instructions ?Recorded ?Confirmed semaglutide 1 mg/dose (4 mg/3 mL) 1 mg subcut .weekly 12/03/23 12/03/23 subcutaneous pen injector (Ozempic) valsartan 160 mg tablet 160 mg PO DAILY 12/03/23 12/03/23 Allergies Allergy/AdvReac Type Severity Reaction Status Date / Time No Known Drug Allergies Allergy Verified 12/03/23 18:39 Review of Systems ROS Narrative All Systems are negative except as noted/marked.All systems reviewed and otherwise negative Exam Narrative Exam Narrative: A Nurses note and vital signs reviewed and patient is not hypoxic. General: The patient appears well and in no apparent distress. Patient is resting comfortably on cart. Skin: Warm, dry, no pallor noted. There is no rash noted. Head: Normocephalic, atraumatic Eye: Normal conjunctiva, no drainage, EOMI. PERRL Ears, Nose, Mouth, and Throat: oral mucosa is moist. Nares patent. Mouth without vesicles. Ear canals patent. Tm's without Erythema Cardiovascular: Regular Rate and Rhythm Respiratory: Patient is in no distress, no accessory muscle use, lungs are clear to auscultation, no wheezing, rales or rhonchi Back: non-tender, no CVA tenderness bilaterally to percussion. GI: Normal bowel sounds, no tenderness to palpation, no masses appreciated. No rebound, guarding, or rigidity noted. Musculoskeletal: The patient has no evidence of calf tenderness, no pitting edema, symmetrical pulses noted bilaterally Neurological: A&O x4, normal speech Psychiatric: Cooperative Constitutional Vital Signs, click to edit/add: Last Vital Signs Temp 98.0 F 12/03/23 18:39 Pulse 76 12/03/23 19:29 Resp 20 12/03/23 19:29 BP 128/64 12/03/23 19:29 Pulse Ox 93 L 12/03/23 19:29 O2 Del Method Room Air 12/03/23 19:29 Course Vital Signs Vital signs: Vital Signs Temperature 98.0 F 12/03/23 18:39 Pulse Rate 88 12/03/23 18:39 Respiratory Rate 18 12/03/23 18:39 Blood Pressure 179/80 H 12/03/23 18:39 Pulse Oximetry 98 12/03/23 18:39 Oxygen Delivery Method Room Air 12/03/23 18:39 Temperature 98.0 F 12/03/23 18:39 Pulse Rate 76 12/03/23 19:29 Respiratory Rate 20 12/03/23 19:29 Blood Pressure 128/64 12/03/23 19:29 Pulse Oximetry 93 L 12/03/23 19:29 Oxygen Delivery Method Room Air 12/03/23 19:29 MDM - Chest Pain MDM Narrative Medical decision making narrative: 68-year-old male presents here to the emergency room with chief complaint of burning sensation in his chest. Patient states he had a burning sensation and pressure in his chest yesterday. He states that then released. He states he has an upper respiratory infection, influenza he feels over the last couple of weeks. He states today he tried to go out for a walk and developed a burning sensation around 11:00 this morning and continues until he arrives here to the emergency room. He denies any radiation of his pain. He denies any vomiting, nausea fever or chills. He denies cardiac history himself. He has a history of type 2 diabetes. He denies a history of smoking. He states his last stress te st was over 10 years ago. He does have a family history of coronary artery arrest by his mom and dad but they were both elderly. Patient's vital signs are stable. He is not tachycardic.Patient did arrive by private car. at bedside Upon arrival to the emergency room, EKG , IV was established. Was performed at 1848 for sinus rhythm with incomplete rightBundle jw block.Blood work was also drawn. Patient was initially medicated here with aspirin and nitro. Patient did not have relief of his symptoms with nitro. CBC BMP were not resulted patient had an elevated BUN and creatinine 358. Initial troponin was 1557.3. Repeat troponin resulted at 2039 shows an elevation of 2693.4. Repeat EKG performed at 2037 showed no acute changes continued sinus rhythm being of 72 bpm incomplete right bundle branch block. We have no previous EKGs to compare. Heparin drip as well as nitro drip for being started. I spoke to Dr. Bonner [facility]. Initial call was placed [id number]. Hospitalist from [facility] returned our phone call at [phone]. She does agree for admission. Patient and are at bedside they agree with plan of care and transportation. We discussed the risks of his condition. Patient verbalizes understanding. Patient's vital signs remained stable. Current blood pressure is 147/ 70, heart rate of 72, pulse ox on room air is 95%. waiting bed assignment and patient will then be transferred. Differential Diagnosis Differential diagnosis: Likely stable angina, unstable angina pectoris, atypical chest pain, costochondritis and chest pain Medical Records Data Attestation: I reviewed the patient's medical records. Lab Data Attestation: I reviewed the patient's lab results. Labs: Lab Results 12/03/23 12/03/23 Range/Units 18:54 20:09 WBC 11.0 (4.0-11.0) 10^3/uL RBC 3.37 L (4.70-6.10) 10^6/uL Hgb 12.1 L (14.0-18.0) g/dL Hct 36.2 L (42.0-54.0) % MCV 107.4 H (80.0-94.0) fL MCH 35.9 H (25.9-34.0) pg MCHC 33.4 (29.9-35.2) g/dL RDW 15.0 (11.0-15.0) % Plt Count 361 (150-450) 10^3/uL MPV 9.8 (9.5-13.5) fL Neut % (Auto) 80.5 H (43.0-75.0) % Lymph % (Auto) 9.4 L (20.5-60.0) % [place] % (Auto) 7.2 (1.7-12.0) % Eos % (Auto) 1.9 (0.9-7.0) % Baso % (Auto) 0.5 (0.2-2.0) % Neut # (Auto) 8.9 H (1.4-6.5) 10^3/uL Lymph # (Auto) 1.0 L (1.2-3.8) 10^3/uL [place] # (Auto) 0.8 (0.3-0.8) 10^3/uL Eos # (Auto) 0.2 (0.0-0.7) 10^3/uL Baso # (Auto) 0.1 (0.0-0.1) 10^3/uL Abs Immat Gran (auto) 0.05 H (0.00-0.03) 10^3/uL Imm/Tot Granulo (auto) 0.5 (0.0-0.5) % PT 10.4 (9.0-11.6) sec INR 0.98 APTT 30.7 (22.3-36.2) sec Sodium 144 (136-145) mmol/L Potassium 4.3 (3.5-5.1) mmol/L Chloride 109 H (98-107) mmol/L Carbon Dioxide 23.4 (21.0-32.0) mmol/L Anion Gap 15.9 BUN 35.0 H (7.0-18.0) mg/dL Creatinine 2.08 H (0.70-1.30) mg/dL Est GFR ( Amer) 39 L (>=60) Est GFR (Non-Af Amer) 32 L (>=60) BUN/Creatinine Ratio 16.8 Glucose 114 H (74-106) mg/dL Calcium 9.2 (8.5-10.1) mg/dL Total Bilirubin 0.4 (0.2-1.0) mg/dL AST 25 (15-37) U/L ALT 17 (16-63) U/L Alkaline Phosphatase 80 (46-116) U/L Troponin I High Sens 1557.3 H* 2693.4 H* (4.0-76.1) pg/mL NT-Pro-B Natriuret Pep 178.0 (<=900.0) pg/mL Total Protein 7.3 (6.4-8.2) g/dL Albumin 3.6 (3.4-5.0) g/dL Globulin 3.7 g/dL Albumin/Globulin Ratio 1.0 Imaging Data Chest x-ray: Radiologist's impression: ITS Impressions Chest X-Ray 12/03/23 18:48 IMPRESSION: No acute findings. Electronically authenticated by: ENMANUEL HERNANDEZ Date: 12/03/2023 20:08 ECG Data Interpretation: 1847 EKG shows normal sinus rhythm with a rate of 75 bpm MT interval 172 ms QRS duration 106 ms, no ST elevation or depression. No STEMI 2037 EKG showed normal sinus rhythm with a rate of 72 bpm, MT interval 156 ms QRS duration 108 ms, no acute STEMI no ST elevation or depression Core Measures AMI core measures followed: Yes Heart Score History: Slightly/Non-Suspicious ECG: Normal Age: >65 years Risk Factors: 1 or 2 Risk Factors Troponin: >3X Normal Limit Total Heart Score Recommendations & Risks:: 5 Discharge Plan Discharge Chief Complaint: Upper Respiratory Infection Clinical Impression: Non-STEMI (non-ST elevated myocardial infarction) Patient Disposition: [facility] Time of Disposition Decision: 20:41 Discharge location: [facility] [place] [address] Bonner Condition: Fair Mode of Transportation: EMS
[2023-12-03 19:01] LABS: Basophils Absolute Auto 0.1 10^3/uL (0.0-0.1); Basophils Percent Auto 0.5 % (0.2-2.0); Eosinophils Absolute Auto 0.2 10^3/uL (0.0-0.7); Eosinophils Percent Auto 1.9 % (0.9-7.0); Hematocrit 36.2 % (42.0-54.0); Hemoglobin 12.1 g/dL (14.0-18.0); Immature Granulocytes Abs Auto 0.05 10^3/uL (0.00-0.03); Immature Granulocytes Pct Auto 0.5 % (0.0-0.5); Lymphocytes Percent Auto 9.4 % (20.5-60.0); Mean Corpuscular HGB Conc 33.4 g/dL (29.9-35.2); Mean Corpuscular Hemoglobin 35.9 pg (25.9-34.0); Mean Corpuscular Volume 107.4 fL (80.0-94.0); Mean Platelet Volume 9.8 fL (9.5-13.5); Monocytes Absolute Auto 0.8 10^3/uL (0.3-0.8); Monocytes Percent Auto 7.2 % (1.7-12.0); Neutrophils Absolute Auto 8.9 10^3/uL (1.4-6.5); Neutrophils Percent Auto 80.5 % (43.0-75.0); Platelet Count 361 10^3/uL (150-450); Red Blood Count 3.37 10^6/uL (4.70-6.10)
[2023-12-03 19:15] LABS: INR 0.98; Partial Thromboplastin Time 30.7 sec (22.3-36.2); Prothrombin Time 10.4 sec (9.0-11.6)
[2023-12-03] MEDS: ASPIRIN 81 MG TAB.CHEW 324 MG PO (19:16)
[2023-12-03] MEDS: NITROGLYCERIN 0.4 MG BOTTLE 0.400000000000000022 MG PO (19:16)
[2023-12-03 19:23] LABS: Alanine Aminotransferase 17 U/L (16-63); Albumin Level 3.6 g/dL (3.4-5.0); Alkaline Phosphatase 80 U/L (46-116); Anion Gap 15.9; Aspartate Amino Transferase 25 U/L (15-37); BUN Creatinine Ratio 16.8; Bilirubin Total 0.4 mg/dL (0.2-1.0); Calcium 9.2 mg/dL (8.5-10.1); Carbon Dioxide 23.4 mmol/L (21.0-32.0); Chloride 109 mmol/L (98-107); Estimated GFR (African America 39 (>=60); Estimated GFR (Non-African Ame 32 (>=60); Globulin 3.7 g/dL; Glucose 114 mg/dL (74-106); Potassium 4.3 mmol/L (3.5-5.1); Sodium 144 mmol/L (136-145); Total Protein 7.3 g/dL (6.4-8.2)
[2023-12-03 19:33] LABS: Troponin I High Sensitivity 1557.3 pg/mL (4.0-76.1)
--- NOTE | 2023-12-03 19:35 | PC.NURSE ---
1st nitro given. /10 pain
--- NOTE | 2023-12-03 19:37 | PC.NURSE ---
No change in pain
--- NOTE | 2023-12-03 19:39 | PC.NURSE ---
After 3 nitros no change in discomfort
--- NOTE | 2023-12-03 19:40 | PC.NURSE ---
After 3 Nitros no change in pain.
--- NOTE | 2023-12-03 19:41 | PC.NURSE ---
PA aware of troponin in to talk with patient
[2023-12-03] MEDS: MORPHINE SULFATE 2 MG/ML SYRINGE IV (20:05)
[2023-12-03 20:37] LABS: Troponin I High Sensitivity 2693.4 pg/mL (4.0-76.1)
--- NOTE | 2023-12-03 20:38 | ECG_ITS ---
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
[2023-12-03] MEDS: HEPARIN SODIUM,PORCINE/D5W 25,000 UNIT/500 ML IV.SOLN 20 UNIT IV (20:40)
[2023-12-03] MEDS: 0.9 % SODIUM CHLORIDE 1,000 ML 1000 ML IV (20:40)
[2023-12-03] MEDS: HEPARIN SODIUM (PORCINE) 5,000 UNIT/ML VIAL 4000 UNIT IV (20:41)
[2023-12-03] MEDS: NITROGLYCERIN IN 5 % DEXTROSE 50 MG/250 ML INFUS..BTL IV (20:51)
--- NOTE | 2023-12-03 22:04 | PC.NURSE ---
Report to Sp at [facility] . [phone]. He will be going to room 4024. is aware
== END 2023-12-03 22:46 | disposition short-term general hospital (02) ==
PROVIDERS: Physician Assistant; Emergency Provider Emergency Medicine Emergency Medical Services; PCP Family Medicine
DX: I21.4 Non-ST elevation (NSTEMI) myocardial infarction (principal); E11.9 Type 2 diabetes mellitus without complications; Z79.899 Other long term (current) drug therapy
CPT/HCPCS: 36415; 71045; 80053; 83880; 84484; 85025; 85610; 85730; 93005; 96374; 96375; 99285

== ENCOUNTER 2024-04-19 07:06 | Outpatient (RCR) | payer OTHER, SELFPAY ==
--- NOTE | 2023-12-29 15:10 | CR1_ITS ---
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
--- NOTE | 2024-01-03 15:50 | CR1_ITS ---
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
--- NOTE | 2024-01-31 14:33 | CR1_ITS ---
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
--- NOTE | 2024-02-29 09:23 | CR1_ITS ---
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
--- NOTE | 2024-04-02 14:09 | CR1_ITS ---
The 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
--- NOTE | 2024-04-19 15:08 | CR1_ITS ---
The [facility] Test Date: 2024-04-19 Pat Name: KENYETTA WEST Department: Room: - Gender: Male Offset Press Assistant: : 1955 Requested By: BAYLEE MARSH Order Number: [id number] Zan MD: BAYLEE MARSH Interpretive Statements Session Date: Electronically Signed On 04-19-2024 21:38:53 EDT by BAYLEE MARSH
== END 2024-05-18 07:53 | disposition home or self-care (01) ==
LOC: CR 07:06
PROVIDERS: PCP Family Medicine; Visit Provider Internal Medicine Cardiovascular Disease
DX: I25.10 Atherosclerotic heart disease of native coronary artery without angina pectoris (principal); I21.3 ST elevation (STEMI) myocardial infarction of unspecified site; Z98.61 Coronary angioplasty status
CPT/HCPCS: 93798

== ENCOUNTER 2024-07-07 07:21 | Outpatient (OUT) | payer OTHER, SELFPAY ==
--- OUTSIDE RECORDS SUMMARY | 2024-07-07 07:26 | XMS_ITS | CCD ---
Author Organization [facility] Care Team Providers Care Tank Processor Name Role Phone MARIA ALEJANDRA ANDREA Attending Unavailable MARIA ALEJANDRA ANDREA Admitting Unavailable SHAIKH OVIEDO Primary Care Unavailable MARIA ALEJANDRA ANDREA Consulting Unavailable MARKER, DR DRUMMOND Admitting Unavailable FAWWAD, NEVILLE Primary Care Unavailable MARKER, DR DRUMMOND Consulting Unavailable MARKER, DR DRUMMOND Attending Unavailable LINDA PEREZ Consulting Unavailable Jhon Stout Consulting Unavailable QUINTON, NEVILLE Admitting Unavailable QUINTON, NEVILLE Primary Care Unavailable MEADE, DR GALILEO Bueno Consulting Unavailable FAPatricioWAD, NEVILLE Attending Unavailable QUINTON, NEVILLE Consulting Unavailable RAUL BYRD Admitting Unavailable RAUL BYRD Consulting Unavailable QUINTON, NEVILLE Primary Care Unavailable RAUL BYRD Attending Unavailable RAUL BYRD Attending Unavailable RAUL BYRD Admitting Unavailable RAUL BYRD Primary Care Unavailable RAUL BYRD Consulting Unavailable Raul Byrd Primary Care Physician [phone] Raul Byrd Primary Care Physician [phone] MD Raul Byrd Primary Care Provider [phone] MD Kailey Velasquez Admit Provider DO Paul Barriga Attending Provider Kailey Velasquez Admitting Unavailable Raul Byrd Primary Care Unavailable Paul Barriga Attending Unavailable Ivania Garnett Consulting Unavailable Patricio Taylor Consulting Unavailable Veronica Yates Consulting Unavailable Jhon King Consulting Unavail able Dannie Shaw Consulting Unavailable Marcos Mora Consulting Unavailab [place] Consulting Unavailable Alycia Lopez Consulting Unavailable Silvano Angel Consulting Unavailab Nikunj Kiran Consulting Unavailable Ana Cristina Ramey Consulting Unavailable Kassidy Oconnor Consulting Unavailable Al-Marrawi, Mhd Yaser Attending Unavailabl e Al-Marrawi, Mhd Yaser Admitting Unavailabl Raul Patrick Attending Unavailable Raul Byrd Attending Unavailable Al-Marrawi, Mhd Yaser Admitting Unavailabl e Al-Marrawi, Mhd Yaser Attending Unavailabl e Al-Marrawi, Mhd Yaser Admitting Unavailabl e Al-Marrawi, Mhd Yaser Attending Unavailabl e Al-Marrawi, Mhd Yaser Admitting Unavailabl e Al-Marrawi, Mhd Yaser Attending Unavailabl e Raul Byrd Attending Unavailable Raul Byrd. Admitting Unavailable Al-Marrawi, Mhd Yaser Admitting Unavailabl e Al-Marrawi, Mhd Yaser Attending Unavailabl e Al-Marrawi, Mhd Yaser Attending Unavailabl e Al-Marrawi, Mhd Yaser Attending Unavailabl e Al-Marrawi, Mhd Yaser Attending Unavailabl e MD Steve Layne Attending Unavailable Raul Byrd Referring Unavailable Raul Byrd Admitting Unavailable SHARI TURNER Attending Unavailable Raul Byrd Attending Unavailable Raul Byrd Attending Unavailable Raul Byrd Attending Unavailable Raul Byrd Attending Unavailable Raul Byrd Attending Unavailable Allergies Allergy Classification Reported Allergen(s) Allergy Type Date of Onset Reaction(s) Facility (3 sources) Amino Acids; 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: [lisinopril] Drug Allergy [facility] (3 sources) Dextroamphetamine ; 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: [Lipitor] Drug Allergy [facility] (3 sources) Losartan; 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: [losartan] Drug Allergy 2 [facility] (3 sources) Simvastatin; 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: [simvastatin] Drug Allergy [facility] (15 sources) atorvastatin; 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: [atorvastatin] Drug Allergy Surekha (finding) [facility] [place] (17 sources) Dextroamphetamine ; 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: [dextroamphetamin e] Drug Allergy Cramp (finding) [facility] (17 sources) Isoleucine / Leucine / Valine; 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: [parenteral nutrition solution] Drug Allergy Cramp (finding) [facility] (15 sources) Lisinopril; 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: [lisinopril] Drug Allergy Cramp (finding) [facility] (15 sources) Losartan; 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: [losartan] Drug Allergy 2 Other: See Comments [facility] (15 sources) Simvastatin; 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: [simvastatin] Drug Allergy Cramp (finding) [facility] (1 source) atorvastatin Drug Allergy 4 Repository Medications Current Medications Medication Drug Class(es) Dates Sig (Normalized) Sig (Original) 0.5 ML semaglutide 2 MG/ML Auto-Injector (4 sources) Start: 02-13-2024 inject 1 mg by subcutaneous injection every week semaglutide 1 mg/0.5 mL (1 mg dose) subcutaneous solution 1 mg, SubCutaneous, qWeek, # 4 EA, Refills(s) 0, Pharmacy: [facility]/pharmacy #[id number], 172, cm, 02/13/24 14:47:00 EDT, Height/Length Dosing, 97.2, kg, 02/13/24 14:47:00 EDT, Weight Dosing Start Date: 02/13/24 Status: Ordered Start: 10-10-2023 inject 1 mg by subcu taneous injection every week semaglutide 1 mg/0.5 mL (1 mg dose) subcutaneous solution 1 mg, SubCutaneous, qWeek, # 4 EA, Refills(s) 0, Pharmacy: [facility]/pharmacy #[id number], 172, cm, 10/10/23 13:06:00 EST, Height/Length Dosing, 103.5, kg, 10/10/23 13:10:00 EST, Weight Dosing Start Date: 10/10/23 Status: Ordered aspirin 81 mg oral tablet (3 sources) Platelet Aggregation Inhibitor, Nonsteroidal Anti-inflammatory Drug Start: 12-06-2023 take 81 mg by mouth once daily aspirin 81 mg, Oral, Daily, Refills(s) 0 Start Date: 12/06/23 Status: Ordered Start: 12-05-2023 take 81 mg by mouth once daily Aspirin Active 81 MG PO Daily 90 December 05, 2023 12:00am atorvastatin 40 mg oral tablet (3 sources) HMG-CoA Reductase Inhibitor Start: 02-08-2024 take 1 tablet by mouth once daily atorvastatin 40 mg Tab 40 mg = 1 tab(s), Oral, Daily, # 30 tab(s), Refills(s) 6, Pharmacy: [facility]/pharmacy #[id number], 172, cm, 02/08/24 15:17:00 EDT, Height/Length Dosing, 97.2, kg, 02/08/24 15:17:00 EDT, Weight Dosing Start Date: 02/08/24 Status: Ordered Start: 12-05-2023 take 80 mg by mouth once daily in the evening Atorvastatin Active 80 MG PO Every evening December 05, 2023 12:00am Metoprolol (3 sources) beta-Adrenergic Mac Start: 12-06-2023 take 12.5 mg by mouth twice daily metoprolol 12.5 mg, Oral, BID, Refills(s) 0 Start Date: 12/06/23 Status: Ordered Start: 12-05-2023 take 12.5 mg by mout h twice daily Metoprolol Tartrate Active 12.5 MG PO Twice daily December 05, 2023 12:00am nitroglycerin 0.4 mg sublingual powder (3 sources) Nitrate Vasodilator Start: 12-06-2023 nitroglyce rin 0.4 mg, SubLingual, q5min, PRN Chest pain, Refills(s) 0 Start Date: 12/06/23 Status: Ordered Start: 12-05-2023 Nitroglycerin Active 0.4 MG SUBLINGUAL Q5M December 05, 2023 12:00am Ozempic (15 sources) Start: 02-08-2024 Ozempic Refill (s) 0 Start Date: 02/08/24 Status: Ordered Start: 04-11-2023 inject 1 mg by subcu taneous injection every week Ozempic 2 mg/1.5 mL (1 mg dose) subcutaneous solution 1 mg, SubCutaneous, qWeek, 3 EA, Refill(s) 3, [facility] [id number], 172, cm, 05/31/23 15:29:00 EDT, Height/Length Dosing, 102.6, kg, 05/31/23 15:29:00 EDT, Weight Dosing Start Date: 06/08/23 Status: Ordered Start: 01-10-2023 inject 1 mg by subcu taneous injection every week Ozempic 2 mg/1.5 mL (1 mg dose) subcutaneous solution 1 mg, SubCutaneous, qWeek, 3 EA, Refill(s) 3, [facility] #[id number], 172, cm, 01/10/23 14:25:00 EDT, Height/Length Dosing, 102.5, kg, 01/10/23 14:25:00 EDT, Weight Dosing Start Date: 01/10/23 Status: Ordered Start: 09-09-2022 inject 0.5 mg by sub cutaneous injection every week Ozempic 2 mg/1.5 mL (0.25 mg or 0.5 mg dose) subcutaneous solution 0.5 mg, SubCutaneous, qWeek, 9 mL, Refill(s) 1, 90 day supply, [facility]/pharmacy #[id number], 172, cm, 09/09/22 15:33:00 EST, Height/Length Dosing, 104.4, kg, 09/09/22 15:33:00 EST, Weight Dosing Start Date: 09/09/22 Status: Ordered Start: 03-16-2022 inject 0.25 mg by velazco bcutaneous injection every week Ozempic 2 mg/1.5 mL (0.25 mg or 0.5 mg dose) subcutaneous solution 0.25 mg, SubCutaneous, qWeek, 9 mL, Refill(s) 1, 90 day supply, [id number], 172, cm, 02/11/22 15:55:00 EDT, Height/Length Dosing, 110.5, kg, 02/11/22 15:55:00 EDT, Weight Dosing Start Date: 03/16/22 Status: Ordered Start: 02-11-2022 End: 03-11-2022 inject 0.25 mg by subcutaneous injection every week Ozempic 2 mg/1.5 mL (0.25 mg or 0.5 mg dose) subcutaneous solution 0.25 mg, SubCutaneous, qWeek for 4 week(s), 2 EA, Refill(s) 0, [facility]/pharmacy #[id number], 172, cm, 02/11/22 15:55:00 EDT, Height/Length Dosing, 110.5, kg, 02/11/22 15:55:00 EDT, Weight Dosing Start Date: 02/11/22 Stop Date: 03/11/22 Status: Ordered Semaglutide (1 source) Start: 12-04-2023 Semaglutide (Ozempic) 1 mg/dose (4 mg/3 mL) pen injector Active MG SUBCUT December 04, 2023 12:00am ticagrelor 90 mg oral tablet (3 sources) Start: 12-05-2023 take 90 mg by mouth twice daily Brilinta (ticagrelor) 90 mg, Oral, BID, Refills(s) 0 Start Date: 12/06/23 Status: Ordered valsartan 80 mg oral tablet (16 sources) Angiotensin 2 Receptor Mac Start: 04-16-2024 take 1 tablet by mouth once daily valsartan 80 mg Tab See Instructions, TAKE 1 TABLET BY MOUTH EVERY DAY, # 90 tab(s), Refills(s) 4, Pharmacy: [facility]/pharmacy #[id number], 172, cm, 02/13/24 14:47:00 EDT, Height/Length Dosing, 97.2, kg, 02/13/24 14:47:00 EDT, Weight Dosing Start Date: 04/16/24 Status: Ordered Start: 01-16-2024 take 1 tablet by demetrius once daily valsartan 80 mg Tab 80 mg = 1 tab(s), Oral, Daily, # 90 tab(s), Refills(s) 0, Pharmacy: [facility]/pharmacy #[id number], 172, cm, 01/16/24 14:46:00 EDT, Height/Length Dosing, 96.7, kg, 01/16/24 14:46:00 EDT, Weight Dosing Start Date: 01/16/24 Status: Ordered Start: 12-04-2023 take 1 tablet by demetrius once daily Valsartan Active MG PO Daily December 04, 2023 12:00am FreeTextSi tablet Orally Once a day; Note: Source Status: Taking; Provider: Marino Skaggs ( ) Start: 10-10-2023 take 1 tablet by demetrius once daily valsartan 160 mg Tab 160 mg = 1 tab(s), Oral, Daily, # 90 tab(s), Refills(s) 3, Pharmacy: [facility]/pharmacy #[id number], 172, cm, 10/10/23 13:06:00 EST, Height/Length Dosing, 103.5, kg, 10/10/23 13:10:00 EST, Weight Dosing Start Date: 10/10/23 Status: Ordered Start: 01-10-2023 take 1 tablet by demetrius once daily valsartan 160 mg Tab 160 mg = 1 tab(s), Oral, Daily, # 90 tab(s), Refills(s) 3, Pharmacy: [facility]/pharmacy #[id number], 172, cm, 01/10/23 14:25:00 EDT, Height/Length Dosing, 102.5, kg, 01/10/23 14:25:00 EDT, Weight Dosing Start Date: 01/10/23 Status: Ordered Start: 09-09-2022 take 1 tablet by [facility] once daily valsartan 160 mg Tab 160 mg = 1 tab(s), Oral, Daily, # 90 tab(s), Refills(s) 3, Pharmacy: [facility]/pharmacy #[id number], 172, cm, 09/09/22 15:33:00 EST, Height/Length Dosing, 104.4, kg, 09/09/22 15:33:00 EST, Weight Dosing Start Date: 09/09/22 Status: Ordered Start: 02-11-2022 End: 08-10-2022 take 1 tablet by mouth once daily valsartan 160 mg Tab 160 mg = 1 tab(s), Oral, Daily, X 90 day(s), # 90 tab(s), Refills(s) 1, Pharmacy: [facility]/pharmacy #[id number], 172, cm, 02/11/22 15:55:00 EDT, Height/Length Dosing, 110.5, kg, 02/11/22 15:55:00 EDT, Weight Dosing Start Date: 02/11/22 Stop Date: 08/10/22 Status: Ordered vitamin b12 1 mg/ml injectable solution (9 sources) Vitamin B12 Start: 12-04-2023 Cyanocobalamin (Vitamin B-12) Active MCG SOLUTION December 04, 2023 12:00am Start: 10-03-2023 inject 1000 ug by in tramuscular injection every other week cyanocobalamin 1000 mcg/mL Inj 1,000 mcg, IntraMuscular, q2wk, # 30 mL, Refills(s) 5, Pharmacy: [facility]/pharmacy #[id number], 172, cm, 10/03/23 15:12:00 EST, Height/Length Dosing, 102.3, kg, 10/03/23 15:12:00 EST, Weight Dosing Start Date: 10/03/23 Status: Ordered Start: 10-03-2023 inject 1000 ug by in tramuscular injection every other week cyanocobalamin 1000 mcg/mL Inj 1,000 mcg, IntraMuscular, q2wk, # 30 mL, Refills(s) 5, Pharmacy: [facility]/pharmacy #[id number], 172, cm, 10/03/23 15:12:00 EST, Height/Length Dosing, 102.3, kg, 10/03/23 15:12:00 EST, Weight Dosing Start Date: 10/03/23 Status: Ordered Start: 05-31-2023 inject 1000 ug by in tramuscular injection every other week cyanocobalamin 1000 mcg/mL Inj 1,000 mcg, IntraMuscular, q2wk, # 30 mL, Refills(s) 5, Pharmacy: [facility]/pharmacy #[id number], 172, cm, 05/31/23 15:29:00 EDT, Height/Length [...] [ACUTE KIDNEY FAILURE UNSPECIFIED] Onset: 11-05-2021 Episodic Acute myocardial infarction (3 sources) Myocardial infarction; 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: [Non-ST elevation (NSTEMI) myocardial infarction] Onset: 12-04-2023 12-04-2023 Chronic Cancer of prostate (15 sources) Malignant tumor of prostate Onset: 11-04-2021 11-12-2021 Chronic Cancer of prostate (1 source) Personal history of malignant neoplasm of prostate; 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: [PERSONAL HX MALIG NEOPLASM PROSTATE] Onset: 10-30-2021 Episodic Chronic kidney disease (20 sources) Chronic kidney disease, unspecified; 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: [Chronic kidney disease stage 3] Onset: 10-30-2021 Chronic Chronic kidney disease (1 source) Chronic kidney disease; 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: [Chronic kidney disease, stage 3a] Onset: 12-04-2023 Coronary atherosclerosis and other heart disease (3 sources) Coronary atherosclerosis; 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: [Atherosclerotic heart disease of [place] coronary artery without angina pectoris] Onset: 02-08-2024 Chronic Deficiency and other anemia (13 sources) Macrocytic anemia 02-16-2022 Episodic Deficiency and other anemia (2 sources) Nutritional anemia; 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: [Nutritional anemia, unspecified] Onset: 09-09-2022 Episodic Diabetes mellitus with complications (20 sources) Type 2 diabetes mellitus with diabetic chronic kidney disease; 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: [Type 2 diabetes mellitus with diabetic nephropathy] Onset: 10-15-2021 Chronic Diabetes mellitus without complication (8 sources) Type 2 diabetes mellitus without complications; 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: [Type 2 diabetes mellitus] Onset: 11-05-2021 11-12-2021 Chronic E Codes: Adverse effects of medical drugs (1 source) Adverse effect of other opioids, initial encounter; 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: [ADVERSE EFF OTH OPIOIDS INITIAL ENC] Onset: 11-05-2021 Episodic Essential hypertension (20 sources) Essential (primary) hypertension; 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: [Essential hypertension] Onset: 11-04-2021 Chronic Other aftercare (1 source) 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; 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: [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] Onset: 11-05-2021 Episodic Other aftercare (2 sources) Post-discharge follow-up 12-08-2023 Episodic Other gastrointestinal disorders (1 source) Drug induced constipation; 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: [DRUG INDUCED CONSTIPATION] Onset: 11-05-2021 Episodic Other gastrointestinal disorders (8 sources) Constipation 04-11-2023 Episodic Other male genital [...] W/AND (SUSP) EXPOS COVID-19] Onset: 11-05-2021 Unclassified (15 sources) Non-smoker 11-12-2021 Unclassified (7 sources) Patient encounter status 02-11-2022 Past or Other Problems Problem Classification Problem Date Documented Da te Episodic/Chronic Genitourinary symptoms and ill-defined conditions (2 sources) Proteinuria Onset: 01-17-2017 11-29-2023 Episodic Inflammatory conditions of male genital organs (5 sources) Epididymitis Onset: 05-17-2022 05-17-2022 Episodic Other connective tissue disease (1 source) Myositis Onset: 11-12-2021 05-17-2022 Episodic Other male genital disorders (2 sources) Hydrocele of testis Onset: 10-30-2021 11-29-2023 Episodic Unclassified (1 source) LOW BACK PAIN, UNSPECIFIED; 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: [LOW BACK PAIN, UNSPECIFIED] Onset: 11-02-2021 Results Test Name Value Interpretation Reference Range Facil ity Ambulatory Visit Summaryon 0 05-21-2024 Ambulatory Visit Summary Ambulatory Visit Summary KENYETTA SCHUMACHER Viji :1955 Visit Date:05/21/2024 Ambulatory Visit Instructions Your Diagnosis Type 2 diabetes mellitus with stage 3b chronic kidney disease, without long-term current use of insulin Proteinuria Essential hypertension BMI 33.0-33.9,adult Class 1 obesity due to excess calories in adult Former smoker Chronic kidney disease, stage 3b Your Care Team Attending Physician - Raul Byrd MD Primary Care Physician - Raul Byrd MD This Is Your Medications List [facility] Prescription (IM 3ml syringes/needles 25gauge, 1 ) aspirin atorvastatin (atorvastatin 40 mg Tab) cyanocobalamin (cyanocobalamin 1000 mcg/mL Inj) metoprolol nitroglycerin semaglutide (semaglutide 1 mg/0.5 mL (1 mg dose) subcutaneous solution) ticagrelor (Brilinta (ticagrelor)) valsartan (valsartan 80 mg Tab) Procedures Performed Cardiac catheterization (12/04/2023), Colonoscopy (2018), Endoscopic prostatectomy (2005), Transurethral prostatectomy (2005), History of tonsillectomy (1962), Repair of tendo achilles. Discharge Vitals Temperature (Temporal Artery) 36.4 ?C Heart Rate (Peripheral) 76 Respiratory Rate 16 Blood Pressure 126/64 Height 172 cm Height 68 in Weight 100.1 kg Weight 220.22 lb BMI 33.84 What to do next Scheduled Follow-Up Appointments 2023 3:00 PM EST With: Xi LUNDY, Steve Wong Where: Cardiology Clinic Tuesday 3:20 PM EDT With: Navdeep LUNDY, Yariel Jin Where: Oncology Tuesday 3:30 PM EDT With: Raul Byrd MD Where: [place] [id number]- Medications What How Much When Why Instructions Unchanged aspirin 81 Milligram By Mouth Every day Unchanged atorvastatin (atorvastatin 40 mg Tab) 1 Tablets By Mouth Every day Unchanged cyanocobalamin (cyanocobalamin 1000 mcg/ mL Inj) 1,000 Microgram Intramuscular Every other week B12 deficiency Unchanged metoprolol 12.5 Milligram By Mouth 2 times a day Unchanged Misc Prescription (IM 3ml syringes/ needles 25gauge, 1 ) See instructions B12 deficiency IM syringes/ needles for B12 injections every 2 weeks Unchanged nitroglycerin 0.4 Milligram Sublingual Every 5 minutes as needed for Chest pain Unchanged semaglutide (semaglutide 1 mg/ 0.5 mL (1 mg dose) subcutaneous solution) 1 Milligram Subcutaneous Every week Unchanged ticagrelor (Brilinta (ticagrelor)) 90 Milligram By Mouth 2 times a day Unchanged valsartan (valsartan 80 mg Tab) See instructions TAKE 1 TABLET BY MOUTH EVERY DAY Allergies Amino Acid (Muscle cramps) Lipitor (Muscle cramps) dextroamphetamine (Muscle cramps, Unknown) lisinopril (Muscle cramps) losartan (Other: See Comments) simvastatin (Muscle cramps, Unknown) Problems Ongoing - Any problem that you are currently receiving treatment for. CAD in [place] artery Constipation Diabetic nephropathy associated with type 2 diabetes mellitus Essential hypertension Hospital discharge follow-up Hydrocele of testis Macrocytic anemia Malignant tumor of prostate Non-smoker Nutritional anemia, unspecified Proteinuria Stage 3b chronic kidney disease Type 2 diabetes mellitus with stage 3b chronic kidney disease, without long-term current use of insulin Patient Survey You may receive a survey via text or e-mail asking about your office visit. Please share your experience with us by completing your survey. We appreciate your feedback and thank you for choosing us for your care. Normal [facility] Family Medicine Office/Clini c Noteon 05-21-2024 Family Medicine Office/Clinic Note Family Medicine Office/Clinic Note HPI Staff Kenyetta is a 69 year old male presenting for 3 month follow up HTN, DM Do you have any of the following symptoms? Foot Exam: gets with his yearly wellness which is coming up Eye Exam: due end of this year. Last A1C: Hgb A1C %: 5.9 % (10/10/23 13:39:00) Statin: atorvastatin blood sugars 95-107 in the afternoons Patient is here for follow up on hypertension. How often are you checking your blood pressure? Daily What are your average readings? average 119-128 over 68-74_ Yearly BMP: 09/24/23 flu: done 2 days ago at [facility] questions/concerns: none. feels fine History of Present Illness Patient is here for follow-up. No concerns at this time. Patientwas recently at oncology and got lab work done. No further concerns from the patient. Review of Systems PHQ Score Initial Depression Screen Score: 0 SCORE Physical Exam Vitals & Measurements T: 36.4 ?C(Temporal Artery) HR: 76(Peripheral) RR: 16 BP: 126/64 SpO2: 96% HT: 68 in HT: 172 cm WT: 100.1 kg WT: 220.22 lb BMI: 33.84 General: alert, no acute distress ENMT: oral mucosa moist, Cardiovascular: regular rate and rhythm, normal peripheral perfusion Respiratory: Lungs CTA, respirations non labored Extremities: no deformity, no trauma Neurological: oriented x 4, LOC appropriate for age, CN II-XII intact, motor strength equal & normal bilaterally, speech normal Abdomen: Soft, Nontender, Non-distended, + BS Assessment/Plan 1. Type 2 diabetes mellitus with stage 3b chronic kidney disease, without long-term current use of insulin (E11.22: Type 2 diabetes mellitus with diabetic chronic kidney disease) A1c in September was 5.9. Patient does had lab May 08. Will check labs at next visit. Continue on medication as before. 2. Proteinuria (R80.9: Proteinuria, unspecified) Will continue on valsartan. 3. Essential hypertension (I10: Essential (primary) hypertension) At goal at this time. 4. BMI 33.0-33.9,adult (Z68.33: Body mass index [BMI] 33.0-33.9, adult) BMI education added 5. Class 1 obesity due to excess calories in adult (E66.09: Other obesity due to excess calories) Diet and exercise advised 6. Former smoker (Z87.891: Personal history of nicotine dependence) Please continue to not smoke. Chronic kidney disease, stage 3b (N18.32: Chronic kidney disease, stage 3b) Stable. Orders: semaglutide, 1 mg, SubCutaneous, qWeek, # 4 EA, Refills(s) 0, Pharmacy: [facility]/pharmacy #[id number], 172, cm, 05/21/24 14:49:00 EDT, Height/Length Dosing, 100.1, kg, 05/21/24 14:49:00 EDT, Weight Dosing Follow-up No qualifying data available Patient Education BMI for Adults Problem List/Past Medical History Ongoing CAD in [place] artery Constipation Diabetic nephropathy associated with type 2 diabetes mellitus Essential hypertension Hospital discharge follow-up Hydrocele of testis Macrocytic anemia Malignant tumor of prostate Non-smoker Nutritional anemia, unspecified Proteinuria Stage 3b chronic kidney disease Type 2 diabetes mellitus with stage 3b chronic kidney disease, without long-term current use of insulin Historical No qualifying data Procedure/Surgical History Cardiac catheterization (12/04/2023), Colonoscopy (2018), Endoscopic prostatectomy (2005), Transurethral prostatectomy (2005), History of tonsillectomy (1962), Repair of tendo achilles. Medications aspirin, 81 mg, Oral, Daily atorvastatin 40 mg Tab, 40 mg= 1 tab(s), Oral, Daily, 6 refills Brilinta (ticagrelor), 90 mg, Oral, BID cyanocobalamin 1000 mcg/mL Inj, 1000 mcg, IntraMuscular, q2wk, 5 refills IM 3ml syringes/needles 25gauge, 1 , See Instructions, 5 refills metoprolol, 12.5 mg, Oral, BID nitroglycerin, 0.4 mg, SubLingual, q5min, PRN, Self Directed semaglutide 1 mg/0.5 mL (1 mg dose) subcutaneous solution, 1 mg, SubCutaneous, qWeek valsartan 80 mg Tab, See Instructions, 4 refills Allergies Amino Acid (Muscle cramps) Lipitor [...] age 54 Years. Household tobacco concerns: No., 05/21/2024 Family History Acute myocardial infarction: Mother and Father. Immunizations Vaccine Date Status influenza virus vaccine, inactivated 05/19/2024 Recorded influenza virus vaccine, inactivated 05/14/2023 Recorded influenza virus vaccine, inactivated 05/17/2022 Given influenza virus vaccine, inactivated 05/17/2022 Recorded SARS-CoV-2 (COVID-19) mRNA-1273 vaccine 04/03/2022 Recorded SARS-CoV-2 (COVID-19) mRNA-1273 vaccine 10/04/2021 Recorded SARS-CoV-2 (COVID-19) mRNA-1273 vaccine 07/11/2021 Recorded zos (more content not included)... Normal [facility] Comment on above: Result Comment: Elec tronically Signed By: Sb LUNDY, Raul Preston\.br\Date and Time Signed: 05/21/24 15:19 EDT Copper Lvlon 05-12-2024 Copper [Mass/Vol] 85 microgram/dL Invalid Interpretation Code 69-132 [facility] Comment on above: Result Comment: This test was developed and its performance characteristics determined by [facility]. It has not been cleared or approved by the Food and Drug Administration. Detection Limit = 5 Performed at: [facility] [address] [id number] MD Modesto Robertson Performed By: #### 1 [id number] #### [facility] [address] [place] [address] CBC w/ Auto Diffon 4 Basophils/100 WBC (Bld) 0.6 % Normal 0.0-2.0 [facility] Comment on above: Performed By: #### 2 [id number] #### [facility] [address] [place] [address] Basophils/Leukocytes Auto (Bld) [Pure # fraction] 0.0 E9/L Normal 0.0-0.2 [facility] Comment on above: Performed By: #### 2 [id number] #### [facility] [address] [place] [address] Eosinophils (Bld) [#/Vol] 0.2 E9/L Normal 0.0-0.5 [facility] Comment on above: Performed By: #### 2 [id number] #### [facility] [address] [place] [address] Eosinophils/100 WBC (Bld) 2.4 % Normal 0.0-8.0 [facility] Comment on above: Performed By: #### 2 [id number] #### [facility] [address] [place] [address]268 Erythrocyte distribution width (RBC) [Ratio] 16.3 % High 10.9-14.2 [facility] Comment on above: Performed By: #### 2 [id number] #### [facility] [address] [place] [address] Hematocrit (Bld) [Volume fraction] 36.6 % Low 37.7-49.0 [facility] Comment on above: Performed By: #### 2 [id number] #### [facility] [address] [place] [address] Hemoglobin (Bld) [Mass/Vol] 12.6 g/dL Low 13.5-17.5 [facility] Comment on above: Performed By: #### 2 [id number] #### [facility] [address] [place] [address] Lymphocytes (Bld) [#/Vol] 1.0 E9/L Normal 1.0-4.0 [facility] Comment on above: Performed By: #### 2 [id number] #### [facility] [address] [place] [address] Lymphocytes/100 WBC (Bld) 11.6 % Low 14.0-50.0 [facility] Comment on above: Performed By: #### 2 [id number] #### [facility] [address] [place] [address] MCH (RBC) [Entitic mass] 37.0 pg High 27.0-34.0 [facility] Comment on above: Performed By: #### 2 [id number] #### [facility] [address] [place] [address] MCHC (RBC) [Mass/Vol] 34.5 g/dL Normal 31.4-36.0 [facility] Comment on above: Performed By: #### 2 [id number] #### [facility] [address] [place] [address] MCV (RBC) [Entitic vol] 107.4 fL High 80.0-100.0 [facility] Comment on above: Performed By: #### 2 [id number] #### [facility] [address] [place] [address]127 Monocytes (Bld) [#/Vol] 0.7 E9/L Normal 0.2-1.0 [facility] Comment on above: Performed By: #### 2 [id number] #### [facility] [address] [place] [address] Neutrophils (Bld) [#/Vol] 6.7 E9/L Normal 2.0-7.5 [facility] Comment on above: Performed By: #### 2 [id number] #### [facility] [address] [place] [address] Neutrophils/100 WBC (Bld) 77.7 % High 36.0-75.0 [facility] Comment on above: Performed By: #### 2 [id number] #### [facility] [address] [place] [address] Platelet mean volume (Bld) [Entitic vol] 7.7 fL Normal 6.4-10.8 [facility] Comment on above: Performed By: #### 2 [id number] #### [facility] [address] [place] [address] Platelets (Bld) [#/Vol] 404.0 E9/L Normal 150.0-500.0 [facility] Comment on above: Performed By: #### 2 [id number] #### [facility] [address] [place] [address] RBC (Bld) [#/Vol] 3.4 E12/L Low 4.3-5.9 [facility] Comment on above: Performed By: #### 2 [id number] #### [facility] [address] [place] [address] WBC corrected for nucl RBC Auto (Bld) [#/Vol] 8.7 E9/L Normal 4.0-11.0 [facility] Comment on above: Performed By: #### 2 [id number] #### [facility] [address] [place] [address] CHEMISTRYOrdered By: SYSTEM SYSTEM on 05-08-2024 Albumin [Mass/Vol] 4.5 g/dL Normal 3.3 - 5.0 gm/dL R emisol Chem Albumin/Globulin [Mass ratio] 1.5 {ratio} Normal 1.1 - 2.2 Remisol Chem ALP [Catalytic activity/Vol] 62 [iU]/d Normal 21 - 98 Int._Unit/L Remisol Chem ALT No additional P-5'-P [Catalytic activity/Vol] 25 [iU]/d Normal 6 - 46 Int._Unit/L Remisol Chem Anion gap [Moles/Vol] 13 mmol/L Normal 6 - 16 mEq/L Remisol Chem AST [Catalytic activity/Vol] 17 [iU]/d Normal 5 - 43 Int._Unit/L Remisol Chem Bilirubin [Mass/Vol] 0.7 mg/dL Normal 0.0 - 1.1 mg/dL Remisol Chem Calcium [Mass/Vol] 9.5 mg/dL Normal 8.9 - 11.1 mg/dL Remisol Chem Chloride [Moles/Vol] 110 mmol/L Normal 101 - 111 mmol/ L Remisol Chem CO2 [Moles/Vol] 21 mmol/L Normal 21 - 31 mmol/L Remis ol Chem Cobalamin (Vitamin B12) [Mass/Vol] 733 pg/mL Normal 50 - 1500 pg/mL Remisol Chem Creatinine [Mass/Vol] 2.0 mg/dL High 0.5 - 1.3 mg/dL Remisol Chem eGFR 36 mL/min/1.73 m2 Low >=59mL/min/1.73 m2 Remisol Chem Ferritin [Mass/Vol] 181 ng/mL Normal 24 - 336 ng/mL R emisol Chem Folate [Mass/Vol] 13.4 ng/mL Normal >=6.7ng/mL Remisol Chem Globulin (S) [Mass/Vol] 3.1 g/dL Normal 1.4 - 4.0 gm/dL Remisol Chem Glucose [Mass/Vol] 95 mg/dL Normal 55 - 199 mg/dL Re misol Chem Iron [Mass/Vol] 103 ug/dL Normal 35 - 153 mcg/dL Matt edbbie Chem Iron binding capacity [Mass/Vol] 308 ug/dL Normal 250 - 400 mcg/dL Remisol Kassidy m Iron saturation [Mass fraction] 33 % Normal 20 - 50 % Remisol Chem Potassium [Moles/Vol] 4.7 mmol/L Normal 3.5 - 5.3 mmol/L Remisol Chem Protein [Mass/Vol] 7.6 g/dL Normal 6.0 - 7.8 gm/dL R emisol Chem Sodium [Moles/Vol] 139 mmol/L Normal 135 - 145 mmol/L Remisol Chem Transferrin [Mass/Vol] 220 mg/dL Normal 200 - 370 mg/dL Remisol Chem Urea nitrogen [Mass/Vol] 42 mg/dL High 5 - 21 mg/dL Remisol Chem Urea nitrogen/Creatinine [Mass ratio] 21 mg/mg High 10 - 20 Remisol Chem CMPon 05-08-2024 Albumin [Mass/Vol] 4.5 g/dL Normal 3.3-5.0 [facility] Comment on above: Performed By: #### 2 [id number] #### [facility] [address] [place] [address] Albumin/Globulin (S) [Mass conc ratio] 1.5 Normal 1.1-2.2 [facility] Comment on above: Performed By: #### 2 [id number] #### [facility] [address] [place] [address] ALP [Catalytic activity/Vol] 62 Int._Unit/L Normal 21-98 [facility] Comment on above: Performed By: #### 2 [id number] #### [facility] [address] [place] [address] ALT No additional P-5'-P [Catalytic activity/Vol] 25 Int._Unit/L Normal 6-46 [facility] Comment on above: Performed By: #### 2 [id number] #### [facility] [address] [place] [address] Anion gap [Moles/Vol] 13 mmol/L Normal 6-16 [facility] Comment on above: Performed By: #### 2 [id number] #### [facility] [address] [place] [address] AST [Catalytic activity/Vol] 17 Int._Unit/L Normal 5-43 [facility] Comment on above: Performed By: #### 2 [id number] #### [facility] [address] [place] [address] Bilirubin [Mass/Vol] 0.7 mg/dL Normal 0.0-1.[address] [facility] Comment on above: Performed By: #### 2 [id number] #### [facility] [address] [place] [address] Calcium [Mass/Vol] 9.5 mg/dL Normal 8.9-11.1 [facility] Comment on above: Performed By: #### 2 [id number] #### [facility] [address] [place] [address] Chloride [Moles/Vol] 110 mmol/L Normal 101-[address] [facility] Comment on above: Performed By: #### 2 [id number] #### [facility] [address] [place] [address] CO2 [Moles/Vol] 21 mmol/L Normal 21-[address] [facility] Comment on above: Performed By: #### 2 [id number] #### [facility] [address] [place] [address] Creatinine [Mass/Vol] 2.0 mg/dL High 0.5-1.3 [facility] Comment on above: Performed By: #### 2 [id number] #### [facility] [address] [place] [address] Globulin (S) [Mass/Vol] 3.1 g/dL Normal 1.4-4.0 [facility] Comment on above: Performed By: #### 2 [id number] #### [facility] [address] [place] [address] Glucose [Mass/Vol] 95 mg/dL Normal 55-199 [facility] Comment on above: Performed By: #### 2 [id number] #### [facility] [address] [place] [address] Potassium [Moles/Vol] 4.7 mmol/L Normal 3.5-5.3 [facility] Comment on above: Performed By: #### 2 [id number] #### [facility] [address] [place] [address] Protein [Mass/Vol] 7.6 g/dL Normal 6.0-7.8 [facility] Comment on above: Performed By: #### 2 [id number] #### [facility] [address] [place] [address] Sodium [Moles/Vol] 139 mmol/L Normal 135-145 [facility] Comment on above: Performed By: #### 2 [id number] #### [facility] [address] [place] [address] Urea nitrogen [Mass/Vol] 42 mg/dL High 5-21 [facility] Comment on above: Performed By: #### 2 [id number] #### [facility] [address] [place] [address] Urea nitrogen/Creatinine [Mass ratio] 21 No Units High 10-20 [facility] Comment on above: Performed By: #### 2 [id number] #### [facility] [address] [place] [address] Ferritinon 05-08-2024 Ferritin [Mass/Vol] 181 ng/mL Normal 24-[address] [facility] Comment on above: Performed By: #### 2 [id number] #### [facility] [address] [place] [address] Folateon 05-08-2024 Folate [Mass/Vol] 13.4 ng/mL Normal >=6.7 [facility] Comment on above: Performed By: #### 2 [id number] #### [facility] [address] [place] [address] HEMATOLOGYOrdered By: SYSTEM SYSTEM on 05-08-2024 Basophils/100 WBC (Bld) 0.6 % Normal 0.0 - 2.0 % Remisol Heme Basophils/Leukocytes Auto (Bld) [Pure # fraction] 0.0 E9/L Normal 0.0 - 0.2 E9/L Remisol Heme Eosinophils (Bld) [#/Vol] 0.2 E9/L Normal 0.0 - 0.5 E9/L Remisol Heme Eosinophils/100 WBC (Bld) 2.4 % Normal 0.0 - 8.0 % Remisol Heme Erythrocyte distribution width (RBC) [Ratio] 16.3 % High 10.9 - 14.2 % Remisol Heme Hematocrit (Bld) [Volume fraction] 36.6 % Low 37.7 - 49.0 % Remisol Heme Hemoglobin (Bld) [Mass/Vol] 12.6 g/dL Low 13.5 - 17.5 gm/dL Remisol Heme Lymphocytes (Bld) [#/Vol] 1.0 E9/L Normal 1.0 - 4.0 E9/L Remisol Heme Lymphocytes/100 WBC (Bld) 11.6 % Low 14.0 - 50.0 % Remisol Heme MCH (RBC) [Entitic mass] 37.0 pg High 27.0 - 34.0 pg Remisol Heme MCHC (RBC) [Mass/Vol] 34.5 g/dL Normal 31.4 - 36.0 gm/dL Remisol Heme MCV (RBC) [Entitic vol] 107.4 fL High 80.0 - 100.0 fL Remisol Heme Monocytes (Bld) [#/Vol] 0.7 E9/L Normal 0.2 - 1.0 E9/L Remisol Heme Monocytes/100 WBC (Bld) 7.7 % Normal 4.0 - 14.0 % Remisol Heme Neutrophils (Bld) [#/Vol] 6.7 E9/L Normal 2.0 - 7.5 E9/L Remisol Heme Neutrophils/100 WBC (Bld) 77.7 % High 36.0 - 75.0 % Remisol Heme Platelet mean volume (Bld) [Entitic vol] 7.7 fL Normal 6.4 - 10.8 fL Remisol Heme Platelets (Bld) [#/Vol] 404.0 E9/L Normal 150.0 - 500.0 E9/L Remisol Heme RBC (Bld) [#/Vol] 3.4 E12/L Low 4.3 - 5.9 E12/L Re misol Heme WBC corrected for nucl RBC Auto (Bld) [#/Vol] 8.7 E9/L Normal 4.0 - 11.0 E9/L Remisol Heme Ironon 05-08-2024 Iron [Mass/Vol] 103 microgram/dL Normal 35-153 [facility] Comment on above: Performed By: #### 2 [id number] #### [facility] [address] [place] [address] Iron Saturationon 05-08-2024 Iron binding capacity [Mass/Vol] 308 microgram/dL Normal 250-400 [facility] Comment on above: Performed By: #### 2 [id number] #### [facility] [address] [place] [address] Iron saturation [Mass fraction] 33 % Normal 20-50 [facility] Comment on above: Performed By: #### 2 [id number] #### [facility] [address] [place] [address] Transferrinon 05-08-2024 Transferrin [Mass/Vol] 220 mg/dL Normal 200-370 [facility] Comment on above: Performed By: #### 2 [id number] #### [facility] [address] [place] [address] Vit B12on 05-08-2024 Cobalamin (Vitamin B12) [Mass/Vol] 733 pg/mL Normal 50-1500 [facility] Comment on above: Performed By: #### 2 [id number] #### [facility] [address] [place] [address] eGFRon 05-08-2024 eGFR 36 mL/min/1.73 m2 Low >=59 [facility] Comment on above: Order Comment: Order added by Discern Expert. Performed By: #### 1 [id number] #### [facility] [address] [place] [address] Coding Summary.on 02-20-2024 Coding Summary. [id number]+PG hlYWQ+LK2CRHLnC96lcA RmdI8uV4RSFLvJHzpeJH DTINbOJmTfbqXdFD1iqY NjZXJu IC8+EC5oLDVdIejioMHv a3L7iXL4Q54gol0lCDdu fUH5YFNcPnKruwdso9bh oIx3MHalAulzFrEi RYMbrK76DYV7eE25Dz53 uNTjeIMez5yhoPh0MvMz OXYfVEF2uAtwPOmjg5Kg CUYzV24xhHCpk5D8 IGNvbGxhcHNlOyBlbXB0 wC0uUQefenkfh2uilqnv Ibl5fu02lTDyo9Z2nGX1 Q7SyfjL7DSPttEDa CayqoLLFyB7qdomuh5it aglkOyQiSDPkBQo9GFs1 JAZlqMlgEwLsIF33OZE8 WUKzmuGgH3JpSNVa iUvaRxF4w7C4Rd7ZC8VY HhvjP3ZFTKRYXEfjxYS+ NP80nr61K5UcTcjfOpw2 RMZhNKI1tWK4hN6h DKHeQDioa2E0nTM1A3Bt xkKzrn6aa2xqVEXmGKys H11mcTMst6M4SLTszUM1 SRPwoThrEhZttS18 Oyc+DWBmnJhme3GiLdgd o0wxv6qwlNx3OybmKKNe vfPwbNkwLSX9w9HbKi6q NKXqxCR9zJU2uK0y MyYtEeM5GDtuZ953PuZc vSYxPkfwP00jV0YpmZD+ HRQpHju6RDDtfUahCL6d L9MwFQQqflsbdDTp fZgnXA7pVVYudwklJBXs qZ7qPMWrO1l5BqDaUvY1 OUidL9LwDYExkkqjSw90 fJ5rWbDkWjJ7QSxj R8LbjzR4MOYsmTIeQMln TYR3Q35rb4R2GTYwSYSl CDG2zNM1hP0alZrvvvww bGVmdDsgdmVydGlj VLbwILelG224BGWteTus PkNvZGluZyBEYXRlOiAg MDYvMjQvMjAyNDwvdGQ+ IUYiFUO6nBoySOGv qWJmOTdeJu5sgUerlIzx TN3aMSZlawxwGHXcyS9o DCWntYZpkIigCH0pQWSo ddyrz681NpGsKDT2 MYGxvNSaG4HihV3vKrYk UVRpDSElD8RktAQqQCyr A538WGdsPqO1EJLjveVb X1YrWGPukZgsGgA6 i1P6Lf5Si9RqscmlJ6Cc xRHhXmIoKmisDMq8Q1Vx PjwvdHI+QX96CCHkBA75 CYs4FXP2wLbjEWab UKQxX1WahK8cTiYyMDFp ZGRkOyc+PHRhYmxlIHdp ZHRoPScxMDAlJyBzdHls VM2bNm3eMSSdCGJn cBmgoDQnOxDal3veHRIp EOdvWT7skUuzR3RdpGS6 HRHbu5e9Rb28D88zV1Ff dXA+IQHeiFN6bAF0 iO7cVlNqKvA5NRwtW156 IuYnoFIeXfkto9ctg2bn jGn2SdI5WOQobuFawAdo BNZ9e8EpMf16G61w IHdpZHRoPSIxNSUiIHZh dFgpvw9tfB5rRy6+PGNv pFA5xAM0oT1uAyKjRpE2 UWfxM640KdRoyOKd Oyrtm4kwm8mazYy2OjEp XDIcclIlbPrzGUC0f6Yh Dy67I2DkpLrfr5FgBji6 li63mKLqr2G6nSM5 J1FzPKTklserqICuuTff OO1rYRQbxqicYGDiaU7w QXVkB3a3UoGmXcA7HEoa G9QykfI4KWNiwQPh YPJzgDYAlP9mhucpu5cj tkeoYtXmKLBuYVb1XLo5 HFHyhBzjJaYdXZU1HcU8 LSX5cIGktB0kbNgx dkkvjO0bOkx+BUI3oSFw xDWGVU6lNnpqzRL+PHRk KBP8qRhbIGolXZIpvB3u LSYyP9a3VrUzCmW0 HOtlJ6CjtjC2TTMpqZZh TWWreTLXvX9necqtn1lp bszyYeCgNPZzMFq3FQm4 LWFsaWduOiBsZWZ0 AtT2VWA7mXLiwH0zzKlv danujX8hZxy+QmlydGgg DNW8YNn0W3YbIms5LWNw tYkgWO6paNBuGDcx Hr5idFpdtLshKT4dKUKg efkne742WyErj4teRNLo mKRnCYakVUB8T60fb6T9 YASnLJSiSRH9wDM6 yG9oaSbvcelleDGvfVzc eoRvzHynMVctTXblQ334 AVWxaNheBfNgWDd5O7Vk Sra6SRDmfVziWN7k fTIrMDcpGq4plZwquQnb VG7pQIXxtkibo854XtPt u1ccHEFcyBLpWHoxHXG7 O87nw4B0QPVeESKb PCV7yWD3oC6rkUqgxkay bGVmdDsgdmVydGljYWwt PFnzA646DEUvbNxpQwAt gXc7K8VfQaj1ETGd qLggGM3tvCQhCRgjPk3r wFkjjBezGR7lSFFpinzk y699AlWme9ffMNEnyGSm BDqiMAL3H19xx1W7 PGEiJZFcPGJ3gTY1iK9l bGlnbjogbGVmdDsgdmVy yAzoEYnzFNcwW705AFKo cDsnPlBhdGllbnQg EZaxLBk0M3MmYsvodHX+ XM87QIIzGH31iIOluXJt y4fgoXb7WaXcYHUsLVI6 dNtjWCsup3YjLLBh D57aoWZca7A0KACgbJfo yTZaOoFbcSX8uJ3rVRxl sjnwp7gkrdarNorpw9yv lt19qO96G16oPFhw ZHRoPSIzMCUiIHZhbGln ua2czP9mMi3+PGNvbCB3 wKJ6cE3bNITbDbF8OEba B325JsHsrMTnIfis w6fzr0bvbUl1FuJ9LNXx jaTitFegNKP4s3VeOg89 W77xUBqfCYGbCKPgNQZz XGWguPypju1fnD1u Ii8+NLCfeDB2mXL9kB5n XzRyIgD6FSmsA544YjJy wFLqSgdvZ89kA3VicVU+ ENEqZli5BLXjpOjd UN7uwFJzWOzoOf6vJLO7 YyTbSwWmGTbdG9RfXSLp kqghyhqsiTG9AOLxNPJm pR92Ac1gpHdbRDAs lUZXlD2ttdeqi1exlagy EkDfNUBkSEw9JUd7EKZb jWzwVcUqWGI2GdX1CLI6 rDRfwY6ewPgginvc qR7fN1AzINDijyvrCo79 iZ2fEbEhDsZ4EIdbXnh+ HdINJurJXVARTF8NYQXS YEc8J5JiBes2FWTk wSnhLA4kqQPmWYhxLl9n rFwvyMfxCP6pBYHwfdbl VYQinJ9uBRFmmKImwNkx QB2dUFObkwqbq787 ZoOiMUZ9TBPxfRGqU9Rm aZ1pRmMyKXWdSVJlG9Jp hLGjXXutH985WEgrNqL7 BZNbigYcJ9JmMHFj xGeqKfF7y9D8Kc3zFv8f UR1yRDJ0HL67OG90bKJv o5O8iSE7M0YeYADmdeze lekfpOH9MLIsIIYk zR07eBVcZEebIc3ro5H2 y541WROdQSKzrB44Uy8s vHmlJIXtyUVJwE9imwdk a7dzvfolIoMoZFAu XPb6YHj1OVPxlGrnPpAd QBZ8QlV3XQT1bIRlsV8p mKbofzgbxG8iKpg+Njcg WSGcxoL1E8AcXhi1 HQFzeUyaCE5xvBWeEFzt Xu5ifOesiGzkQN4gQGVg jcyeACGhuM9qCAFplZFb pQhgMA6tFJYdpgfb g719RqMcVRV8TJTycTFv O7OmhG7eBgSuRHLpVUYo X0RqcQRnTBvrR238CVvz JbH0BDMizoQoD8Jd ZKQeqBhyArU8z4Y1Fz2V TWxnZW29TH65sRRup6V6 bWP1M1FgDZZwjyzgyamf rAB3LMClRLGkfD64 vTVyOHkfEc0dq2V1t911 WZWqKFDwoU07Fw5zxMwf UUAzcNJUpE6zbshrz8uy cjogIzAwMDAwMDt0 JWt1XZJjcLyjWmWmWVI4 ZaC9PJW3vQNpmJ9lfZwm xeezzB2hRip+V5P9gGJ0 aWVudDwvdGQ+PC90 oh58M2GrCvikEyq8UGDj ENN5nHU6bO5oIWIkKHqa a6S5wKT3Q8DnxtNnni6v h3ciSLAxPNsiI13i jOExe4I5HTDqhHC0VCLl nLbiEgAmfS14Yqo+PGNv eIbby6MoZxylx3rpr8di kJy5DdQzPLPhuvOs oJdiXJW1i7OcCb65W24q IHdpZHRoPSIzMCUiIHZh eXjoit0pvW3mRq6+PGNv iKL5lOJ7lG1rJmUr UiE3UAskN404QkXceLRf Pdilr5ucv0mahDj8TzVs VHMtixFdaJfxOLR8t6Ak Cy49Y4JhcUcha6Nw Bcf9wq58yPZbv8K3yGI7 T1ErRJJobdyuwYJwfTeh PL0jXSGahutgAXLycF1n EQAgS5i9KgQjMiN8 IPsoF1SswfV9OPVlpVVp JSYtlQKDcM2dnpuao4lq umacMmNxGUDlPNg1YIt5 LWFsaWduOiBsZWZ0 PwN6KXO8pFJglR3smVlu xncpsR6qIgw+HCj2l4qx pQEyTM0fxLV3DS01ZQ65 bWJuq2Q6jCV3V3Ne NYXbeqptonqszSB2QTAq XPInxR16Ey3smHlqZp9v NWZiSXV5SODpsCPoS4Kw bK7dFkMhFKWwAFBw L2WhjGTqKMfrC846KPbk SbX9ZKPqylBmX8VfSJYj xKlqOoN0t9F7Ne3VTN30 NV07MC05zXYby3F4 kTG2Y7LuMWRfkwblouha rUD3HJVyHFSbfO28Jn9v wWxcUs1tMMPnXUL0MYNf eKApI8YpdO4ySnZx HVHnHYOvQ1NmsJTbXSgr Z586HHdkEtC2LAOojrVg X6AcTOVycUntBmZ5w3X0 Mt8FCe57GW11VA74 hZInh9G2jTP6B5XnUKLc cyuqoledcFO9KBOyFFKj iA77Ll6xxKujTo3iGDEv BRF9YBFwdEBjR2Dw sT1mLhCgKIVoTDLpT0Ci bIWzFSnrF338VUlmYwY7 RYLsieEdQ8DzMEGggGwh NnD3z5B7Yz3NMTsc gfv4R5TfSpzjgIO+PC90 DFTlTF40bDXudDHsa7sr vDa4KoBcKJVfEHJ4aLbk LQpsr8BrVFQkH65u lNKjq4A4BZErd (more content not included)... Normal [facility] Ambulatory Visit Summaryon 0 02-13-2024 Ambulatory Visit Summary KENYETTA SCHUMACHER I :1955 Visit Date:02/13/2024 Ambulatory Visit Instructions Your Diagnosis CAD in [place] band artery Essential hypertension BMI 32.0-32.9,adult Class 1 obesity due to excess calories in adult Former smoker Your Care Team Attending Physician - Raul Byrd MD Primary Care Physician - Raul Byrd MD This Is Your Medications List [facility] Prescription (IM 3ml syringes/needles 25gauge, 1 ) aspirin atorvastatin (atorvastatin 40 mg Tab) cyanocobalamin (cyanocobalamin 1000 mcg/mL Inj) metoprolol nitroglycerin semaglutide (Ozempic) semaglutide (semaglutide 1 mg/0.5 mL (1 mg dose) subcutaneous solution) ticagrelor (Brilinta (ticagrelor)) valsartan (valsartan 80 mg Tab) Procedures Performed Cardiac catheterization (12/04/2023), Colonoscopy (2018), Endoscopic prostatectomy (2005), Transurethral prostatectomy (2005), History of tonsillectomy (1962), Repair of tendo achilles. Discharge Vitals Temperature (Temporal Artery) 36.8 ?C Heart Rate (Peripheral) 92 Respiratory Rate 16 Blood Pressure 112/70 Height 172 cm Height 68 in Weight 97.2 kg Weight 213.84 lb BMI 32.86 What to do next Scheduled Follow-Up Appointments Tuesday 3:40 PM EDT With: Navdeep LUNDY, Yariel Jin Where: [facility] Tuesday 2:00 PM EDT With: Sb LUNDY, Raul Preston Where: [facility] Medicine [place] [facility] Medicine Office/Clini c Noteon 02-13-2024 Family Medicine Office/Clinic Note HPI Staff Kenyetta is a 68 year old male presenting for one month follow up CAD, HTN Patient is here for follow up on hypertension. How often are you checking your blood pressure? Daily What are your average readings? 128/70_ Yearly BMP:10/10/23 _ questions/concerns: none History of Present Illness - Pt here for follow up. - Likes the new [employer]. - Less fogginess with the meds. Review of Systems PHQ Score Initial Depression Screen Score: 0 SCORE Physical Exam Vitals & Measurements T: 36.8 ?C(Temporal Artery) HR: 92(Peripheral) RR: 16 BP: 112/70 SpO2: 96% HT: 68 in HT: 172 cm WT: 97.2 kg WT: 213.84 lb BMI: 32.86 General: alert, no acute distress ENMT: oral mucosa moist, Cardiovascular: regular rate and rhythm, normal peripheral perfusion Respiratory: Lungs CTA, respirations non labored Extremities: no deformity, no trauma Neurological: oriented x 4, LOC appropriate for age, CN II-XII intact, motor strength equal & normal bilaterally, speech normal Abdomen: Soft, Nontender, Non-distended, + BS Assessment/Plan 1. CAD in [place] artery (I25.10: Atherosclerotic heart disease of [place] coronary artery without angina pectoris) - No cp - Doing well. - Meds adjusted. - Discussed new med dosage. - Pt feels good 2. Essential hypertension (I10: Essential (primary) hypertension) - At goal. - No issues. - Still working on loosing weight. 3. BMI 32.0-32.9,adult (Z68.32: Body mass index [BMI] 32.0-32.9, adult) 4. Class 1 obesity due to excess calories in adult (E66.09: Other obesity due to excess calories) 5. Former smoker (Z87.891: Personal history of nicotine dependence) Orders: semaglutide, 1 mg, SubCutaneous, qWeek, # 4 EA, Refills(s) 0, Pharmacy: [facility]/pharmacy #[id number], 172, cm, 02/13/24 14:47:00 EDT, Height/Length Dosing, 97.2, kg, 02/13/24 14:47:00 EDT, Weight Dosing Follow-up No qualifying data available Problem List/Past Medical History Ongoing CAD in [place] artery Constipation Diabetic nephropathy associated with type 2 diabetes mellitus Essential hypertension Hospital discharge follow-up Hydrocele of testis Macrocytic anemia Malignant tumor of prostate Non-smoker Proteinuria Stage 3b chronic kidney disease Type 2 diabetes mellitus with stage 3b chronic kidney disease, without long-term current use of insulin Historical No qualifying data Procedure/Surgical History Cardiac catheterization (12/04/2023), Colonoscopy (2018), Endoscopic prostatectomy (2005), Transurethral prostatectomy (2005), History of tonsillectomy (1962), Repair of tendo achilles. Medications aspirin, 81 mg, Oral, Daily atorvastatin 40 mg Tab, 40 mg= 1 tab(s), Oral, Daily, 6 refills Brilinta (ticagrelor), 90 mg, Oral, BID cyanocobalamin 1000 mcg/mL Inj, 1000 mcg, IntraMuscular, q2wk, 5 refills IM 3ml syringes/needles 25gauge, 1 , See Instructions, 5 refills metoprolol, 12.5 mg, Oral, BID nitroglycerin, 0.4 mg, SubLingual, q5min, PRN semaglutide 1 mg/0.5 mL (1 mg dose) subcutaneous solution, 1 mg, SubCutaneous, qWeek valsartan 80 mg Tab, 80 mg= 1 tab(s), Oral, Daily Allergies Amino Acid (Muscle cramps) Lipitor (Muscle [...] age 54 Years. Household tobacco concerns: No., 02/13/2024 Family History Acute myocardial infarction: Mother and [...] 11/04/2020 Recorded pneumococcal 13-valent vaccine 05/13/2020 Recorded influenza virus vaccine, inactivated 05/13/2020 Recorded influenza virus vaccine, inactivated 06/28/2018 Recorded influenza virus vaccine, inactivated 08/16/2017 Recorded influenza virus vaccine, inactivated 07/05/2016 Recorded influenza virus vaccine, inactivated 09/13/2013 Recorded Normal [facility] Comment on above: Result Comment: Elec tronically Signed By: Sb LUNDY, Raul Nielsen.br\Date and Time Signed: 02/13/24 15:00 EDT Echocardiographyon Echocardiography [id number] 27#1.00TIFF [facility] Outside Operativeon 02-09-20 24 Outside Operative [id number] 69#1.00TIFF [facility] Outside Progress Noteon 01-27 Outside Progress Note [id number] 69#1.00TIFF [facility] Consent for Treatmenton 01-27 Consent for Treatment [id number] #1.00TIFF [facility] Heart and Vascular Office/Cl inic Noteon 02-08-2024 Heart and Vascular Office/Clinic Note Chief Complaint here to establish care History of Present Illness The patient is a very pleasant 68-year-old gentleman with past medical history of hypertension, diabetes mellitus type 2, coronary artery disease with presentation in November 2023 with acute non-ST elevation myocardial infarction, attempt at revascularization of a nondominant circumflex artery (infarct-related vessel, moderate coronary artery disease otherwise) at , who presents today to get a second opinion regarding his cardiac medications. He is feeling well overall, complaining of some mental fogginess ; reports no chest pain, shortness of breath, dizziness or lightheadedness, palpitations, syncope or presyncope. He is undergoing cardiac rehabilitation with no issues. He did have substantial side effects from SGL 2 inhibitors in the past Review of Systems ROS - Provider Constitutional: no fever, no chills, no fatigue Skin:no rash, no lesions ENMT: no ear pain, no sore throat, no congestion. Respiratory: no shortness of breath, no cough, no wheezing. Cardiovascular: no chest pain, no palpitations, no edema. Gastrointestinal: no nausea, no vomiting, no diarrhea, no GI bleeding. Genitourinary: no dysuria, no frequencyno hematuria Musculoskeletal: no back pain, no trauma. Neurologic: no headache, no dizziness, no numbness, no weakness. Psychiatric: no sleeping problems, no irritability, no mood swings/depression. Heme/Lymph: no bleeding tendency, no bruising tendency, no petechiae, Allergy/Immuno logic: no seasonal allergies, no food allergies, no recurrent infections Physical Exam Vitals & Measurements HR: 90(Peripheral) BP: 124/68 SpO2: 96% HT: 68 in HT: 172 cm WT: 97.2 kg WT: 213.84 lb BMI: 32.86 General: alert, no acute distress Neck: Supple, noJVD nocarotid bruit Cardiovascular: regular rate and rhythm, no murmur normal peripheral perfusion Respiratory: Lungs CTAB, respirations non labored Extremities: no edema left lower extremity. no edema right lower extremity Neurological: oriented x 4, LOC appropriate for age, speech normal Skin: Warm, dry, intact- no rash or concerning lesions Assessment/Plan 1. CAD in [place] artery (I25.10: Atherosclerotic heart disease of [place] coronary artery without angina pectoris) Doing well, asymptomatic. Continue DAPT for at least 1 year. Aggressive secondary prevention, cardiac rehabilitation. Will request prior records from [facility]. We may decrease Lipitor to 40 mg nightly, fasting lipid profile in 3 to 4 weeks. 2. Essential hypertension (I10: Essential (primary) hypertension) Blood pressure appears to be well-controlled 3. Type 2 diabetes mellitus with stage 3b chronic kidney disease, without long-term current use of insulin (E11.22: Type 2 diabetes mellitus with diabetic chronic kidney disease) Managed by primary services. The patient is not a candidate for SGL 2 inhibitors Follow-up No qualifying data available Problem List/Past Medical History Ongoing CAD in [place] artery Constipation Diabetic nephropathy associated with type 2 diabetes mellitus Essential hypertension Hospital discharge follow-up Hydrocele of testis Macrocytic anemia Malignant tumor of prostate Non-smoker Proteinuria Stage 3b chronic kidney disease Type 2 diabetes mellitus with stage 3b chronic kidney disease, without long-term current use of insulin Historical No qualifying data Procedure/Surgical History Cardiac catheterization (12/04/2023), Colonoscopy (2018), Endoscopic prostatectomy (2005), Transurethral prostatectomy (2005), History of tonsillectomy (1962), Repair of tendo achilles. Medications aspirin, 81 mg, Oral, Daily Brilinta (ticagrelor), 90 mg, Oral, BID cyanocobalamin 1000 mcg/mL Inj, 1000 mcg, IntraMuscular, q2wk, 5 refills IM 3ml syringes/needles 25gauge, 1 , See Instructions, 5 refills metoprolol, 12.5 mg, Oral, BID nitroglycerin, 0.4 mg, SubLingual, q5min, PRN Ozempic semaglutide 1 mg/0.5 mL (1 mg dose) subcutaneous solution, 1 mg, SubCutaneous, qWeek valsartan 80 mg Tab, 80 mg= 1 tab(s), Oral, Daily Allergies Amino Acid (Muscle cramps) Lipitor (Muscle [...] age 54 Years. Household tobacco concerns: No., 01/16/2024 Family History Acute myocardial infarction: Mother and Father. Immunizations Vaccine Date Status influenza virus vaccine, inactivated 05/14/2023 Recorded influenza virus vaccine, inactivated 05/17/2022 Given influenza virus vaccine, inactivated 05/17/2022 Recorded SARS-CoV-2 (COVID-19) mRN (more content not included)... [facility] Comment on above: Result Comment: Elec tronically Signed By: Xi LUNDY, Steve Wong\.br\Date and Time Signed: 02/08/24 15:49 EDT Physician Orderon 02-08-2024 Physician Order [id number] 1#1.00TIFF [facility] Physician Referralon 024 Physician Referral [id number]# 1.00TIFF [facility] Ambulatory Visit Summaryon 0 01-16-2024 Ambulatory Visit Summary KENYETTA SCHUMACHER I :1955 Visit Date:01/16/2024 Ambulatory Visit Instructions Your Diagnosis CAD in [place] artery Essential hypertension Type 2 diabetes mellitus with stage 3b chronic kidney disease, without long-term current use of insulin BMI 32.0-32.9,adult Class 1 obesity due to excess calories in adult Former smoker Your Care Team Attending Physician - Raul Byrd MD Primary Care Physician - Raul Byrd MD This Is Your Medications List Contact prescribing physician if questions or concerns Misc Prescription (IM 3ml syringes/needles 25gauge, 1 ) aspirin atorvastatin cyanocobalamin (cyanocobalamin 1000 mcg/mL Inj) metoprolol nitroglycerin semaglutide (semaglutide 1 mg/0.5 mL (1 mg dose) subcutaneous solution) ticagrelor (Brilinta (ticagrelor)) valsartan (valsartan 160 mg Tab) Procedures Performed Cardiac catheterization (12/04/2023), Colonoscopy (2018), Endoscopic prostatectomy (2006), Transurethral prostatectomy (2005), History of tonsillectomy (1962), Repair of tendo achilles. Discharge Vitals Temperature (Temporal Artery) 36.3 ?C Heart Rate (Peripheral) 82 Respiratory Rate 16 Blood Pressure 122/76 Height 172 cm Height 68 in Weight 96.7 kg Weight 212.74 lb BMI 32.69 What to do next Scheduled Follow-Up Appointments Tuesday 2:45 PM EDT With: Sb LUNDY, Raul Preston Where: [facility] [address] [place] [address]- \.br\ Tuesday 3:30 PM EDT \.br\ With: Navdeep LUNDY, Yariel Jin\.br\ Where: [facility]\.br\ Medications\.br\ What How Much When Why Instructions\.br\ Unchanged aspirin 81 Milligram By Mouth Every day Contact prescribing physician if questions or concerns \.br\ Unchanged atorvastatin 80 Milligram By Mouth Every day Contact prescribing physician if questions or concerns \.br\ Unchanged cyanocobalamin (cyanocobalamin 1000 mcg/ mL Inj) 1,000 Microgram Intramuscular Every other week B12 deficiency Contact prescribing physician if questions or concerns \.br\ Unchanged metoprolol 12.5 Milligram By Mouth 2 times a day Contact prescribing physician if questions or concerns \.br\ Unchanged Misc Prescription (IM 3ml syringes/ needles 25gauge, 1 ) See instructions B12 deficiency IM syringes/ needles for B12 injections every 2 weeks Contact prescribing physician if questions or concerns \.br\ Unchanged nitroglycerin 0.4 Milligram Sublingual Every 5 minutes as needed for Chest pain Contact prescribing physician if questions or concerns \.br\ Unchanged semaglutide (semaglutide 1 mg/ 0.5 mL (1 mg dose) subcutaneous solution) 1 Milligram Subcutaneous Every week Contact prescribing physician if questions or concerns \.br\ Unchanged ticagrelor (Brilinta (ticagrelor)) 90 Milligram By Mouth 2 times a day Contact prescribing physician if questions or concerns \.br\ Unchanged valsartan (valsartan 160 mg Tab) 1 Tablets By Mouth Every day Contact prescribing physician if questions or concerns \.br\ Allergies\.br\ Amino Acid (Muscle cramps)\.br\ Lipitor (Muscle cramps)\.br\ dextroamphetamine (Muscle cramps, Unknown)\.br\ lisinopril (Muscle cramps)\.br\ losartan (Other: See Comments)\.br\ simvastatin (Muscle cramps, Unknown)\.br\ Problems\.br\ Ongoing - Any problem that you are currently receiving treatment for.\.br\ CAD in [place] artery\.br\ Constipation\.br\ Diabetic nephropathy associated with type 2 diabetes mellitus\.br\ Essential hypertension\.br\ Hospital discharge follow-up\.br\ Hydrocele of testis\.br\ Macrocytic anemia\.br\ Malignant tumor of prostate\.br\ Non-smoker\.br\ Proteinuria\.br\ Stage 3b chronic kidney disease\.br\ Type 2 diabetes mellitus with stage 3b chronic kidney disease, without long-term current use of insulin\.br\ Patient Survey\.br\ You may receive a survey via text or e-mail asking about your office visit. Please share your experience with us by completing your survey. We appreciate your feedback and thank you for choosing us for your care.\.br\ \.br\ [facility] Family Medicine Office/Clini c Noteon 01-16-2024 Family Medicine Office/Clinic Note HPI Staff Kenyetta is a 68 year old male presenting for one month follow up [place], CAD Physically he's okay, but he's struggling possibly with the meds, he's foggy and scatterbrained. Takes meds when first gets up and okay but by afternoon he's got issues. Tired and some muscle fatigue at the end of the day Doing cardiac rehab and doing well with that questions/concerns: History of Present Illness - Here for follow up from his recent [place]. -Struggling in the afternoon. - Doing well with Cardiac rehab. - Gets tired in the afternoon. Review of Systems PHQ Score Initial Depression Screen Score: 0 SCORE Physical Exam Vitals & Measurements T: 36.3 ?C(Temporal Artery) HR: 82(Peripheral) RR: 16 BP: 122/76 SpO2: 96% HT: 68 in HT: 172 cm WT: 96.7 kg WT: 212.74 lb BMI: 32.69 General: alert, no acute distress ENMT: oral mucosa moist, Cardiovascular: regular rate and rhythm, normal peripheral perfusion Respiratory: Lungs CTA, respirations non labored Extremities: no deformity, no trauma Neurological: oriented x 4, LOC appropriate for age, CN II-XII intact, motor strength equal & normal bilaterally, speech normal Abdomen: Soft, Nontender, Non-distended, + BS Assessment/Plan 1. CAD in [place] artery (I25.10: Atherosclerotic heart disease of [place] coronary artery without angina pectoris) - Discussed Meds and which ones could be making him tired. - Will cut the valsartan to see if this helps. - Discussed Plavix instead of Brilinta. - Will refer to another senior quality methods specialist for a second opinion. Ordered: [facility] Internal Ambulatory Referral 2. Essential hypertension (I10: Essential (primary) hypertension) - At goal. Ordered: [facility] Internal Ambulatory Referral 3. Type 2 diabetes mellitus with stage 3b chronic kidney disease, without long-term current use of insulin (E11.22: Type 2 diabetes mellitus with diabetic chronic kidney disease) - Stable. NO issues at this time. Ordered: [facility] Internal Ambulatory Referral 4. BMI 32.0-32.9,adult (Z68.32: Body mass index [BMI] 32.0-32.9, adult) - BMI education given Ordered: [facility] Internal Ambulatory Referral 5. Class 1 obesity due to excess calories in adult (E66.09: Other obesity due to excess calories) - Diet and exercise advised Ordered: [facility] Internal Ambulatory Referral 6. Former smoker (Z87.891: Personal history of nicotine dependence) - Please continue to not smoke. Orders: valsartan, 80 mg = 1 tab(s), Oral, Daily, # 90 tab(s), Refills(s) 0, Pharmacy: [facility]/pharmacy #[id number], 172, cm, 01/16/24 14:46:00 EDT, Height/Length Dosing, 96.7, kg, 01/16/24 14:46:00 EDT, Weight Dosing Follow-up No qualifying data available Patient Education BMI for Adults Problem List/Past Medical History Ongoing CAD in [place] artery Constipation Diabetic nephropathy associated with type 2 diabetes mellitus Essential hypertension Hospital discharge follow-up Hydrocele of testis Macrocytic anemia Malignant tumor of prostate Non-smoker Proteinuria Stage 3b chronic kidney disease Type 2 diabetes mellitus with stage 3b chronic kidney disease, without long-term current use of insulin Historical No qualifying data Procedure/Surgical History Cardiac catheterization (12/04/2023), Colonoscopy (2018), Endoscopic prostatectomy (2005), Transurethral prostatectomy (2005), History of tonsillectomy (1962), Repair of tendo achilles. Medications aspirin, 81 mg, Oral, Daily atorvastatin, 80 mg, Oral, Daily Brilinta (ticagrelor), 90 mg, Oral, BID cyanocobalamin 1000 mcg/mL Inj, 1000 mcg, IntraMuscular, q2wk, 5 refills IM 3ml syringes/needles 25gauge, 1 , See Instructions, 5 refills metoprolol, 12.5 mg, Oral, BID nitroglycerin, 0.4 mg, SubLingual, q5min, PRN semaglutide 1 mg/0.5 mL (1 mg dose) subcutaneous solution, 1 mg, SubCutaneous, qWeek valsartan 80 mg Tab, 80 mg= 1 tab(s), Oral, Daily Allergies Amino Acid (Muscle cramps) Lipitor (Muscle [...] age 54 Years. Household tobacco concerns: No., 01/16/2024 Family History Acute myocardial infarction: Mother and Father. Immunizations Vaccine Date Status influenza virus vaccine, inactivated 05/14/2023 Recorded influenza virus vaccine, inactivated 05/17/2022 Given influenza virus vaccine, inactivated 05/17/2022 Recorded SARS-CoV-2 (COVID-19) mRNA-1273 vaccine 04/03/2022 Recorded SARS-CoV-2 (COVID-19) mRNA-1273 vaccine 10/04/2021 Recorded SARS-CoV-2 (COVID-19) mRNA-1273 vaccine 07/11/2021 Recorded zoster vaccine live 06/12/2021 Recorded influenza virus vaccine, inactivated 06/01/2021 (more content not included)... Normal [facility] Comment on above: Result Comment: Ruben southally Signed By: Sb LUNDY, Raul Nielsen.mary\Date and Time Signed: 01/16/24 15:22 EDT Patient Educationon 01-16-20 Patient Education Nutrition BMI for Adults What is BMI? Body mass index (BMI) is a number that is calculated from a person's weight and height. BMI can help estimate how much of a person's weight is composed of fat. BMI does not measure body fat directly. Rather, it is an alternative to procedures that directly measure body fat, which can be difficult and expensive. BMI can help identify people who may be at higher risk for certain medical problems. What are BMI measurements used for? BMI is used as a screening tool to identify possible weight problems. It helps determine whether a person is obese, overweight, a healthy weight, or underweight. BMI is useful for: ? Identifying a weight problem that may be related to a medical condition or may increase the risk for medical problems. ? Promoting changes, such as changes in diet and exercise, to help reach a healthy weight. BMI screening can be repeated to see if these changes are working. How is BMI calculated? BMI involves measuring your weight in relation to your height. Both height and weight are measured, and the BMI is calculated from those numbers. This can be done either in [place] ([place] or metric measurements. Note that charts and online BMI calculators are available to help you find your BMI quickly and easily without having to do these calculations yourself. To calculate your BMI in Italian ([place] measurements: 1. Measure your weight in pounds (lb). 2. Multiply the number of pounds by 703. ? For example, for a person who weighs 180 lb, multiply that number by 703, which equals 126,540. 3. Measure your height in inches. Then multiply that number by itself to get a measurement called inches squared. ? For example, for a person who is 70 inches tall, the inches squared measurement is 70 inches x 70 inches, which equals 4,900 inches squared. 4. Divide the total from step 2 (number of lb x 703) by the total from step 3 (inches squared): 126,540 ? 4,900 = 25.8. This is your BMI. To calculate your BMI in metric measurements: 1. Measure your weight in kilograms (kg). 2. Measure your height in meters (m). Then multiply that number by itself to get a measurement called meters squared. ? For example, for a person who is 1.75 m tall, the meters squared measurement is 1.75 m x 1.75 m, which is equal to 3.1 meters squared. 3. Divide the number of kilograms (your weight) by the meters squared number. In this example: 70 ? 3.1 = 22.6. This is your BMI. What do the results mean? BMI charts are used to identify whether you are underweight, normal weight, overweight, or obese. The following guidelines will be used: ? Underweight: BMI less than 18.5. ? Normal weight: BMI between 18.5 and 24.9. ? Overweight: BMI between 25 and 29.9. ? Obese: BMI of 30 or above. Keep these notes in mind: ? Weight includes both fat and muscle, so someone with a muscular build, such as an athlete, may have a BMI that is higher than 24.9. In cases like these, BMI is not an accurate measure of body fat. ? To determine if excess body fat is the cause of a BMI of 25 or higher, further assessments may need to be done by a health care provider. ? BMI is usually interpreted in the same way for men and women. Where to find more information For more information about BMI, including tools to quickly calculate your BMI, go to these websites: ? Centers for Disease Control and Prevention: www.cdc.gov ? [place] Heart Association: www.heart.org ? National Heart, Lung, and Blood [employer]: www.nhlbi.nih.gov Summary ? Body mass index (BMI) is a number that is calculated from a person's weight and height. ? BMI may help estimate how much of a person's weight is composed of fat. BMI can help identify those who may be at higher risk for certain medical problems. ? BMI can be measured using Italian measurements or metric measurements. ? BMI charts are used to identify whether you are underweight, normal weight, overweight, or obese. This information is not intended to replace advice given to you by your health care provider. Make sure you discuss any questions you have with your health care provider. Document Revised: 05/07/2020 Document Reviewed: 03/14/2020 [employer] Patient Education ? 2022 [facility] Case Information Case Priority: None Programs: -- Referral Source: Electromechanical Engineer Referral Reason: Care coordination Case Type: Transition Care Management Risk Score: -- Case Status: Enrolled (December 06, 2023) Date Assigned: December 06, 2023 Assigned By: Tank Snyder Date Enrolled: December 06, 2023 Assigned Primary Personnel: Tank Snyder Assigned Secondary Personnel: -- Case Physician: Raul Byrd MD Problems Ongoing CAD in [place] artery Constipation Diabetic nephropathy associated with type 2 diabetes mellitus Epididymitis Essential hypertension Hospital discharge follow-up Hydrocele of testis Hypertensive disorder Macrocytic anemia Malignant tumor of prostate Non-smoker Physical exam Proteinuria Stage 3b chronic kidney disease Type 2 diabetes mellitus with stage 3b chronic kidney disease, without long-term current use of insulin Historical No qualifying data Procedure/Surgical History Cardiac catheterization (12/04/2023), Colonoscopy (2018), Endoscopic prostatectomy (2005), Transurethral prostatectomy (2005), History of tonsillectomy (1962), Repair of tendo achilles. Home Medications aspirin, 81 mg, Oral, Daily atorvastatin, 80 mg, Oral, Daily Brilinta (ticagrelor), 90 mg, Oral, BID cyanocobalamin 1000 mcg/mL Inj, 1000 mcg, IntraMuscular, q2wk, 5 refills IM 3ml syringes/needles 25gauge, 1 , See Instructions, 5 refills metoprolol, 12.5 mg, Oral, BID nitroglycerin, 0.4 mg, SubLingual, q5min, PRN semaglutide 1 mg/0.5 mL (1 mg dose) [...] age 54 Years. Household tobacco concerns: No., 12/08/2023 Family History Acute myocardial infarction: Mother and Father. Screenings and Assessments 12/06/23 09:25:00 Result Name Value Comment Phone Call Monitoring Consent Agreed to continue call Phone Verification Patient Information Full name, street address and date of verified CM Program Enrollment Provides verbal consent for enrollment Goals and Interventions Care Plan Progress Note TCM#4- Spoke with patient for final TCM call. Patient states he is doing good. Notes today is his first session of cardiac rehab. Patient denies any cardiac c/o. Patient denies need for refills states he does have a couple things to discuss with doc at on 01/15. Patient denies any further questions or concerns. Communication Events Date: December 29, 2023 Method: Phone call Type: Outbound Duration (min): 2 Outcome: Case discussion Contact Type: trade show coordinator Contact Name: Tank Snyder Notes: ADRIENNE#4- see tcm note. Created By: Tank Synder Date: December 22, 2023 Method: Phone call Type: Outbound Duration (min): 1 Outcome: Left message-voicemail Contact Type: trade show coordinator Contact Name: Tank Snyder Notes: ADRIENNE#3- left VM for return call. Created By: Tank Snyder Date: December 15, 2023 Method: Phone call Type: Outbound Duration (min): 2 Outcome: Case discussion Contact Type: trade show coordinator Contact Name: Tank Snyder Notes: ADRIENNE#2- see tcm note. Created By: Tank Snyder Date: December 15, 2023 Method: Phone call Type: Outbound Duration (min): 1 Outcome: Left message-person Contact Type: trade show coordinator Contact Name: Tank Snyder Notes: ADRIENNE#2- spoke with patient briefly, was just arriving to Cardio f/u will call later today. Created By: Tank Snyder Date: December 06, 2023 Method: Phone call Type: Outbound Duration (min): 6 Outcome: Case discussion Contact Type: trade show coordinator Contact Name: Tank Snyder Notes: TCM#1- See tcm note. Created By: Tank Snyder [facility] ECG 12-Leadon 12-16-2023 ECG 12-Lead [id number] #1.00TIFF [facility] ED Note-Physicianon 12-16-19 24 ED Note-Physician [id number] #1.00TIFF [facility] ED Note-Physician [id number] #1.00TIFF [facility] Population Healthon 12-15-19 [facility] Case Information Case Priority: None Programs: -- Referral Source: Electromechanical Engineer Referral Reason: Care coordination Case Type: Transition Care Management Risk Score: -- Case Status: Enrolled (December 06, 2023) Date Assigned: December 06, 2023 Assigned By: Tank Snyder Date Enrolled: December 06, 2023 Assigned Primary Personnel: Tank Snyder Assigned Secondary Personnel: -- Case Physician: Raul Byrd MD Ongoing CAD in capitan grande band artery Constipation Diabetic nephropathy associated with type 2 diabetes mellitus Epididymitis Essential hypertension Hospital discharge follow-up Hydrocele of testis Hypertensive disorder Macrocytic anemia Malignant tumor of prostate Non-smoker Physical exam Proteinuria Stage 3b chronic kidney disease Type 2 diabetes mellitus with stage 3b chronic kidney disease, without long-term current use of insulin Historical No qualifying data Procedure/Surgical History Cardiac catheterization (12/04/2023), Colonoscopy (2018), Endoscopic prostatectomy (2005), Transurethral prostatectomy (2005), History of tonsillectomy (1962), Repair of tendo achilles. Home Medications aspirin, 81 mg, Oral, Daily atorvastatin, 80 mg, Oral, Daily Brilinta (ticagrelor), 90 mg, Oral, BID cyanocobalamin 1000 mcg/mL Inj, 1000 mcg, IntraMuscular, q2wk, 5 refills IM 3ml syringes/needles 25gauge, 1 , See Instructions, 5 refills metoprolol, 12.5 mg, Oral, BID nitroglycerin, 0.4 mg, SubLingual, q5min, PRN semaglutide 1 mg/0.5 mL (1 mg dose) [...] age 54 Years. Household tobacco concerns: No., 12/08/2023 Family History Acute myocardial infarction: Mother and Father. Screenings and Assessments 12/06/23 09:25:00 Result Name Value Comment Phone Call Monitoring Consent Agreed to continue call Phone Verification Patient Information Full name, street address and date of verified CM Program Enrollment Provides verbal consent for enrollment Goals and Interventions Care Plan Progress Note TCM#2-Patient states he is doing good. States his appointment with Dr. Taylor this am went good. Patient will be completing cardiac rehab at [facility]. Patient does mention he can 'be a bit spacey at times', notes per Dr. Taylor likely r/t the metoprolol. There were no medication changes made. Patient denies it being of concern. Will report if symptoms worsen. Patient denies any issues or concerns with bowel or urinary system. States he is eating and drinking well. Patient states everything is going well. Denies any further questions or concerns. Communication Events Date: December 15, 2023 Method: Phone call Type: Outbound Duration (min): 130 Outcome: Case discussion Contact Type: trade show coordinator Contact Name: Tank Snyder Notes: TCM#2- see tcm note. Created By: Tank Snyder Date: December 15, 2023 Method: Phone call Type: Outbound Duration (min): 1 Outcome: Left message-person Contact Type: trade show coordinator Contact Name: Tank Snyder Notes: TCM#2- spoke with patient briefly, was just arriving to Cardio f/u will call later today. Created By: Tank Snyder Date: December 06, 2023 Method: Phone call Type: Outbound Duration (min): 6 Outcome: Case discussion Contact Type: trade show coordinator Contact Name: Tank Snyder Notes: TCM#1- See tcm note. Created By: Tank Snyder [facility] RAD - MISCon 12-15-2023 RAD - MISC [phone] [id number] #[id number] [facility] Ambulatory Visit Summaryon 0 12-08-2023 Ambulatory Visit Summary KENYETTA SCHUMACHER I :1955 Visit Date:12/08/2023 Ambulatory Visit Instructions Your Diagnosis BMI 32.0-32.9,adult Class 1 obesity due to excess calories in adult Former smoker Your Care Team Attending Physician - Raul Byrd MD Primary Care Physician - Raul Byrd MD This Is Your Medications List [facility] Prescription (IM 3ml syringes/needles 25gauge, 1 ) aspirin atorvastatin cyanocobalamin (cyanocobalamin 1000 mcg/mL Inj) metoprolol nitroglycerin semaglutide (semaglutide 1 mg/0.5 mL (1 mg dose) subcutaneous solution) ticagrelor (Brilinta (ticagrelor)) valsartan (valsartan 160 mg Tab) Procedures Performed Cardiac catheterization (12/04/2023), Colonoscopy (2018), Endoscopic prostatectomy (2005), Transurethral prostatectomy (2005), History of tonsillectomy (1962), Repair of tendo achilles. Discharge Vitals Temperature (Oral) 36.6 ?C Heart Rate (Peripheral) 82 Respiratory Rate 16 Blood Pressure 108/70 Height 172 cm Height 68 in Weight 97.2 kg Weight 213.84 lb BMI 32.86 What to do next Scheduled Follow-Up Appointments 2023 2:15 PM EDT With: Raul Byrd MD Where: [facility] [place] [address] [place] [address]- \.br\ Tuesday 3:30 PM EDT \.br\ With: Navdeep LUNDY, Yariel Jin\.br\ Where: [facility]\.br\ Medications\.br\ What How Much When Why Instructions\.br\ Unchanged aspirin 81 Milligram By Mouth Every day\.br\ Unchanged atorvastatin 80 Milligram By Mouth Every day\.br\ Unchanged cyanocobalamin (cyanocobalamin 1000 mcg/ mL Inj) 1,000 Microgram Intramuscular Every other week B12 deficiency\.br\ Unchanged metoprolol 12.5 Milligram By Mouth 2 times a day\.br\ Unchanged Misc Prescription (IM 3ml syringes/ needles 25gauge, 1 ) See instructions B12 deficiency IM syringes/ needles for B12 injections every 2 weeks \.br\ Unchanged nitroglycerin 0.4 Milligram Sublingual Every 5 minutes as needed for Chest pain\.br\ Unchanged semaglutide (semaglutide 1 mg/ 0.5 mL (1 mg dose) subcutaneous solution) 1 Milligram Subcutaneous Every week\.br\ Unchanged ticagrelor (Brilinta (ticagrelor)) 90 Milligram By Mouth 2 times a day\.br\ Unchanged valsartan (valsartan 160 mg Tab) 1 Tablets By Mouth Every day\.br\ Allergies\.br\ Amino Acid (Muscle cramps)\.br\ Lipitor (Muscle cramps)\.br\ dextroamphetamine (Muscle cramps, Unknown)\.br\ lisinopril (Muscle cramps)\.br\ losartan (Other: See Comments)\.br\ simvastatin (Muscle cramps, Unknown)\.br\ Problems\.br\ Ongoing - Any problem that you are currently receiving treatment for.\.br\ Constipation\.br\ Diabetic nephropathy associated with type 2 diabetes mellitus\.br\ Epididymitis\.br\ Essential hypertension\.br\ Hydrocele of testis\.br\ Hypertensive disorder\.br\ Macrocytic anemia\.br\ Malignant tumor of prostate\.br\ Non-smoker\.br\ Physical exam\.br\ Proteinuria\.br\ Stage 3b chronic kidney disease\.br\ Type 2 diabetes mellitus with stage 3b chronic kidney disease, without long-term current use of insulin\.br\ Patient Survey\.br\ You may receive a survey via text or e-mail asking about your office visit. Please share your experience with us by completing your survey. We appreciate your feedback and thank you for choosing us for your care.\.br\ \.br\ [facility] Family Medicine Office/Clini c Noteon 12-08-2023 Family Medicine Office/Clinic Note HPI Staff Kenyetta is a 68 year old male presenting for hospital follow up TCM: Hospital: [facility] Admission date: 12/03/23 seen ER only then transferred [facility] DR Taylor Discharge date: 12/05/23 Symptoms the patient presented with: had [place], had cath and had a small block back of heart but couldn't get through so stopped the cath and will treat with medications Current concerns: had some major sweats couple times this night no distress, just drenched wondering if it's one of his new meds, last night he was fine History of Present Illness Pt here for follow up after his NSTEMI - Doing well. - Seeing Dr. Taylor - Doing well now. - Reviewed meds - exercising: Starting Cardio rehab - loosing weight Review of Systems PHQ Score Initial Depression Screen Score: 0 SCORE Physical Exam Vitals & Measurements T: 36.6 ?C(Oral) HR: 82(Peripheral) RR: 16 BP: 108/70 SpO2: 97% HT: 68 in HT: 172 cm WT: 97.2 kg WT: 213.84 lb BMI: 32.86 General: alert, no acute distress ENMT: oral mucosa moist, Cardiovascular: normal peripheral perfusion Respiratory: respirations non labored Extremities: no deformity, no trauma Neurological: oriented x 4, LOC appropriate for age, CN II-XII intact, motor strength equal & normal bilaterally, speech normal Assessment/Plan 1. Hospital discharge follow-up (Z09: Encounter for follow-up examination after completed treatment for conditions other than malignant neoplasm) - TCM call reviewed - Meds Reconcilled - Requesting records from [facility] 2. NSTEMI (non-ST elevated myocardial infarction) (I21.4: Non-ST elevation (NSTEMI) myocardial infarction) - Following with cardio - No issues at this time - CP is resolved 3. CAD in capitan grande band artery (I25.10: Atherosclerotic heart disease of capitan grande band coronary artery without angina pectoris) - Medically optimized - Sweats could be from meds. - Pt to discuss with cardiology. 4. Malignant tumor of prostate (C61: Malignant neoplasm of prostate) - Seeing Urology. 5. BMI 32.0-32.9,adult (Z68.32: Body mass index [BMI] 32.0-32.9, adult) BMI education given - Discussed diet and exercise 6. Class 1 obesity due to excess calories in adult (E66.09: Other obesity due to excess calories) - As above 7. Former smoker (Z87.891: Personal history of nicotine dependence) - Please continue to not smoke. Follow-up No qualifying data available Problem List/Past Medical History Ongoing CAD in capitan grande band artery Constipation Diabetic nephropathy associated with type 2 diabetes mellitus Epididymitis Essential hypertension Hospital discharge follow-up Hydrocele of testis Hypertensive disorder Macrocytic anemia Malignant tumor of prostate Non-smoker Physical exam Proteinuria Stage 3b chronic kidney disease Type 2 diabetes mellitus with stage 3b chronic kidney disease, without long-term current use of insulin Historical No qualifying data Procedure/Surgical History Cardiac catheterization (12/04/2023), Colonoscopy (2018), Endoscopic prostatectomy (2005), Transurethral prostatectomy (2005), History of tonsillectomy (1962), Repair of tendo achilles. Medications aspirin, 81 mg, Oral, Daily atorvastatin, 80 mg, Oral, Daily Brilinta (ticagrelor), 90 mg, Oral, BID cyanocobalamin 1000 mcg/mL Inj, 1000 mcg, IntraMuscular, q2wk, 5 refills IM 3ml syringes/needles 25gauge, 1 , See Instructions, 5 refills metoprolol, 12.5 mg, Oral, BID nitroglycerin, 0.4 mg, SubLingual, q5min, PRN semaglutide 1 mg/0.5 mL (1 mg dose) [...] age 54 Years. Household tobacco concerns: No., 12/08/2023 Family History Acute myocardial infarction: Mother and [...] 11/04/2020 Recorded pneumococcal 13-valent vaccine 05/13/2020 Recorded influenza virus vaccine, (more content not included)... Normal [facility] Comment on above: Result Comment: Elec tronically Signed By: Raul Byrd MD\.br\Date and Time Signed: 12/08/23 08:29 EDT [facility] 12-06-19 [facility] Case Information Case Priority: None Programs: -- Referral Source: Electromechanical Engineer Referral Reason: Care coordination Case Type: Transition Care Management Risk Score: -- Case Status: Enrolled (December 06, 2023) Date Assigned: December 06, 2023 Assigned By: Tank Snyder Date Enrolled: December 06, 2023 Assigned Primary Personnel: Tank Snyder Assigned Secondary Personnel: -- Case Physician: Raul Byrd MD Problems Ongoing Constipation Diabetic nephropathy associated with type 2 diabetes mellitus Epididymitis Essential hypertension Hydrocele of testis Hypertensive disorder Macrocytic anemia Malignant tumor of prostate Non-smoker Physical exam Proteinuria Stage 3b chronic kidney disease Type 2 diabetes mellitus with stage 3b chronic kidney disease, without long-term current use of insulin Historical No qualifying data Procedure/Surgical History Colonoscopy (2018), Endoscopic prostatectomy (2005), Transurethral prostatectomy (2005), History of tonsillectomy (1962), Repair of tendo achilles. Home Medications aspirin, 81 mg, Oral, Daily atorvastatin, 80 mg, Oral, Daily Brilinta (ticagrelor), 90 mg, Oral, BID cyanocobalamin 1000 mcg/mL Inj, 1000 mcg, IntraMuscular, q2wk, 5 refills IM 3ml syringes/needles 25gauge, 1 , See Instructions, 5 refills metoprolol, 12.5 mg, Oral, BID semaglutide 1 mg/0.5 mL (1 mg dose) [...] age 54 Years. Household tobacco concerns: No., 11/29/2023 Family History Acute myocardial infarction: Mother and Father. Screenings and Assessments 12/06/23 09:25:00 Result Name Value Comment Phone Call Monitoring Consent Agreed to continue call Phone Verification Patient Information Full name, street address and date of verified CM Program Enrollment Provides verbal consent for enrollment Goals and Interventions Care Plan Progress Note Admit Date: 12/03/23 from [facility] to [facility] Date of Discharge: 12/05/23 [facility] (no d/c summary available) Follow-up appointment scheduled? yes, TCM f/u with PCP Dr. Byrd 12/08/23 at 0745 Did you understand your discharge instructions? yes Are you able to follow them? yes Did you receive new medications? yes, asa 81 mg qd, Brilinta 90 mg BID, atorvastatin 80 mg QD, metoprolol tartrate 12.5 mg BID Have you filled the Rx's? yes Are you taking them as prescribed? yes Are you having difficulty eating or swallowing your pills? no Are you having any stomach upset, diarrhea or constipation? no How are you sleeping? good, but up last night q 2 hr Are you having any pain? no Do you have everything you need at home to care for yourself? yes Do you have Home Health? no Called patient for initial Transitional Care Management Program call. Readmission risk unavailable. Discussed d/c instructions and dx of NSTEMI with patient. Patient underwent a heart cath, right radial approach. Preformed by Dr. Taylor. Medications reconciled with patient, EHR, and D/C list. Reviewed purpose and side effects of new medications with patient. Patient states he is 'feeling good.' Denies any CP or SOB. Patient states he did not have PCI. Dr. Taylor is going to treat with medication. Patient reports cath access site, right radial, 'is good.' Notes you can 'barely see it.' Patient is to remain off work until 12/12/[address] Taylor instruction. Patient denies any bowel or urinary system issues. Reviewed the following appointments with patient: TCM f/u with PCP 12/08/23 at 0745 and Cardiology f/u 12/14. CN explained TCM program and gave CN contact number. Patient denies any further questions or concerns. Communication Events Date: December 06, 2023 Method: Phone call Type: Outbound Duration (min): 6 Outcome: Case discussion Contact Type: trade show coordinator Contact Name: Tank Snyder Notes: TCM#1- See tcm note. Created By: Tank Snyder Normal [facility] Basic Metabolic Panelon 04-0 Anion gap [Moles/Vol] 11.6 mmol/L Normal 6.0-15.0 [facility] Comment on above: Performed By: #### B RL, CBC #### [place] [address] [place] Calcium [Mass/Vol] 8.7 mg/dL Normal 8.6-10.3 [facility] Comment on above: Performed By: #### B RL, CBC #### [place] [address] [place] Chloride [Moles/Vol] 109 mmol/L High 98-107 [facility] Comment on above: Performed By: #### B RL, CBC #### [facility] [address] [place] [address] [place] CO2 [Moles/Vol] 24.5 mmol/L Normal 21.0-31.0 [facility] Comment on above: Performed By: #### B MP, CBC #### [place] [address] [place] Creatinine [Mass/Vol] 1.58 mg/dL High 0.70-1.30 [facility] Comment on above: Performed By: #### B MP, CBC #### [place] [address] [place] Creatinine Clr Calc Pharmacy 51.88 Normal [facility] Comment on above: Result Comment: PERF ORMED BY: [place] [address] PATHOLOGIST MANAGER LABOR DELIVERY JAIME PACKER M.D. Performed By: #### B MP, CBC #### [place] [address] [place] GFR/1.73 sq M.predicted MDRD (S/P/Bld) [Vol rate/Area] 47.645 mL/min/{1.73_m2} Normal [facility] Comment on above: Performed By: #### B MP, CBC #### [address] Glucose [Mass/Vol] 106 mg/dL High 70-100 [facility] Comment on above: Result Comment: [place] Glucose Reference Range is dependent on time and content of last meal. Glucose of more than 200 mg/dL in a nonstressed, ambulatory subject supports the diagnosis of Diabetes Mellitus. ADA recommended reference range Performed By: #### B MP, CBC #### [place] [address] [place] Potassium [Moles/Vol] 4.1 mmol/L Normal 3.5-5.1 [facility] Comment on above: Performed By: #### B MP, CBC #### [place] [address] [place] Sodium [Moles/Vol] 141 mmol/L Normal 136-145 [facility] Comment on above: Performed By: #### B MP, CBC #### [address] Urea nitrogen [Mass/Vol] 19 mg/dL Normal 7-25 [facility] Comment on above: Performed By: #### B MP, CBC #### [address] Basophils Auto (Bld) [#/Vol] Ordered By: Kailey Velasquez on 12-05-2023 Basophils (Bld) [#/Vol] 0.0 10*3/uL 0.0-0.2 Basophils/100 WBC Auto (Bld) Ordered By: Kailey Velasquez on 12-05-2023 Basophils/100 WBC (Bld) 0.3 % . Calcium [Mass/volume] in Ser um or PlasmaOrdered By: Kailey Velasquez on 12-05-2023 Calcium [Mass/Vol] 8.7 mg/dL 8.6-10.3 [facility] Carbon dioxide, total [Moles /volume] in Serum or PlasmaOrdered By: Kailey Velasquez on 12-05-2023 CO2 [Moles/Vol] 24.5 mmol/L 21.0-31.0 [facility] Chloride [Moles/volume] in S stanislaw or PlasmaOrdered By: Kailey Velasquez on 12-05-2023 Chloride [Moles/Vol] 109 mmol/L 98-107 [facility] Complete Blood Count Auto Di ffon 12-05-2023 Basophils (Bld) [#/Vol] 0.0 10*3/uL Normal 0.0-0.2 [facility] Comment on above: Result Comment: PERF ORMED BY: [place] [address] PATHOLOGIST MANAGER LABOR DELIVERY JAIME PACKER M.D. Performed By: #### B MP, CBC #### [address] Basophils/100 WBC (Bld) 0.3 % Normal . [facility] Comment on above: Performed By: #### B MP, CBC #### [place] [address] [place] Eosinophils (Bld) [#/Vol] 0.1 10*3/uL Normal 0.0-0.45 [facility] Comment on above: Performed By: #### B MP, CBC #### [address] Eosinophils/100 WBC (Bld) 1.2 % Normal . [facility] Comment on above: Performed By: #### B MP, CBC #### [address] Erythrocyte distribution width (RBC) [Ratio] 16.8 % High 12.0-14.8 [facility] Comment on above: Performed By: #### B MP, CBC #### [address] Hematocrit (Bld) [Volume fraction] 34.1 % Low 38.8-50.0 [facility] Comment on above: Performed By: #### B MP, CBC #### [address] Hemoglobin (Bld) [Mass/Vol] 11.5 g/dL Low 13.0-17.0 [facility] Comment on above: Performed By: #### B MP, CBC #### [address] Lymphocytes (Bld) [#/Vol] 0.8 10*3/uL Low 1.00-4.8 [facility] Comment on above: Performed By: #### B MP, CBC #### [address] Lymphocytes/100 WBC (Bld) 6.6 % Normal . [facility] Comment on above: Performed By: #### B MP, CBC #### [address] MCH (RBC) [Entitic mass] 35.8 pg High 27.5-35.2 [facility] Comment on above: Performed By: #### B MP, CBC #### [address] MCV (RBC) [Entitic vol] 105.6 fL High 83.5-101 [facility] Comment on above: Performed By: #### B MP, CBC #### [address] Mean Corpuscular HGB Conc 33.8 g/dL Normal 32.5-35.6 [facility] Comment on above: Performed By: #### B MP, CBC #### [address] Monocytes (Bld) [#/Vol] 1.1 10*3/uL High 0.0-0.8 [facility] Comment on above: Performed By: #### B MP, CBC #### [address] Monocytes/100 WBC (Bld) 8.8 % Normal . [facility] Comment on above: Performed By: #### B MP, CBC #### [address] Neutrophils (Bld) [#/Vol] 10.2 10*3/uL High 1.8-7.7 [facility] Comment on above: Performed By: #### B MP, CBC #### [address] Neutrophils/100 WBC (Bld) 83.1 % Normal . [facility] Comment on above: Performed By: #### B MP, CBC #### [address] NRBC% 0.2 /100{WBC} Normal 0-0.5 [facility] Comment on above: Performed By: #### B MP, CBC #### [address] Platelet mean volume (Bld) [Entitic vol] 7.6 fL Normal 6.6-10.1 [facility] Comment on above: Performed By: #### B MP, CBC #### [address] Platelets (Bld) [#/Vol] 339 10*3/uL Normal 150-450 [facility] Comment on above: Performed By: #### B MP, CBC #### [facility] [address] RBC (Bld) [#/Vol] 3.23 10*6/uL Low 3.90-5.60 [facility] Comment on above: Performed By: #### B MP, CBC #### [facility] [address] WBC (Bld) [#/Vol] 12.3 10*3/uL High 4.1-10.5 [facility] Comment on above: Performed By: #### B MP, CBC #### [address] Creatinine [Mass/volume] in Serum or PlasmaOrdered By: Kailey Velasquez on 12-05-2023 Creatinine [Mass/Vol] 1.58 mg/dL 0.70-1.30 ECG 12 lead ECGon 12-05-2023 ECG 12 lead ECG [facility] [employer] [address] [place] [address] Electrocardiograph Report Signed Patient: Kenyetta Schumacher I MR#: [id number] : 1955 Acct:[id number] Age/Sex: 68 / M ADM Date: 12/03/23 Loc: Room: [address] [place] [address] Type: ADM IN Attending Dr: Paul Barriga DO Ordering Provider: Patricio Taylor DO Date of Service: 12/05/2304/21/500 ECG/ECG 12 lead ECG: Post Angioplasty Procedure in AM Copies to: Test Reason : Blood Pressure : / mmHG Vent. Rate : 081 BPM Atrial Rate : 081 BPM P-R Int : 180 ms QRS Dur : 108 ms QT Int : 378 ms P-R-T Axes : 062 065 059 degrees QTc Int : 439 ms Sinus rhythm with premature supraventricular complexes Incomplete right bundle branch block Borderline ECG When compared with ECG of 04-DEC-2023 07:36, premature supraventricular complexes are now present Confirmed by SCAR LUNDY [id number] on 12/05/2023 11:25:39 AM Referred By: Electronically Signed By:MONTSERRAT KING MD [facility] Transcribed By: MUS Signed By Jhon King MD 12/05/23 1125 Normal [facility] echo transthoracicon [facility] echo transthoracic [facility] [employer] [address] [place] [address] Echocardiogram Signed Patient: Kenyetta Schumacher I MR#: [id number] : 1955 Acct:[id number] Age/Sex: 68 / M ADM Date: 12/03/23 Loc: Room: [address] [place] [address] Type: ADM IN Attending Dr: Paul Barriga DO Ordering Provider: Kailey Velasquez MD Date of Service: 12/04/2303/21/137 [facility] echo transthoracic: nstemi Copies to: MD Jhon Ortega MD Weight: 219 lb Performed By: Delfina Rojas FE BSA: 2.1 m2 BP: 124/72 mmHg HR: 70 Reason For Study: nstemi History: Former Smoker. Family history of CAD. Interpretation Summary Ejection Fraction = 55-60%. Mild concentric left ventricular hypertrophy. The left atrium appears mildly dilated. Procedure/Quality: A two-dimensional transthoracic echocardiogram with color flow, Doppler and injection of contrast agent Definity was performed. The study was technically good in quality. Left Ventricle: The left ventricular size is normal. Mild concentric left ventricular hypertrophy. Ejection Fraction = 55-60%. No left ventricular thrombus or mass is seen. Left Atrium: The left atrium appears mildly dilated. The atrial septum appears normal. Right Atrium: The right atrium appears normal in size. Right Ventricle: The right ventricular size, thickness and function are normal. Aortic Valve: The aortic valve is normal in structure and function. Mitral Valve: The mitral valve is normal in structure and function. Tricuspid Valve: The tricuspid valve is normal in structure and function. Pulmonic Valve: The pulmonic valve is not well visualized. Arteries: The aortic root is normal size. The aortic arch was visualized and no abnormalities were seen. Pericardium/Pleura: No pericardial effusion seen. There is no pleural effusion. IVC/Hepatic Veins: The inferior vena cava is normal in size, with a normal collapsibility index. Measurements with Normals IVSd: 1.3 cm (0.7-1.1 cm)LVIDd: 4.5 cm (3.7-5.4 cm) LVPWd: 1.3 cm (0.7-1.1 cm)LVIDs: 3.2 cm (2.3-3.6 cm) LA dimension: 4.6 cm (2.3-4.0 cm)Ao root diam: 3.6 cm(2.0-3.6 cm) asc Aorta Diam: 3.6 cm(2.1-3.4cm) Doppler with Normals LV V1 max: 109.9 cm/sec (0.7-1.7m/s)MV E max pepe: 68.4 cm/sec(0.8-1.3m/s) MV A max pepe: 94.6 cm/sec(0.0-0.0m/s) MV E/A: 0.72 (<1.5) MMode/2D Measurements Calculations TAPSE: 2.9 cm FS: 29.7 % Ao root area: LVOT diam: 2.1 cm RV S Pepe: EDV(Teich): 10.1 cm2 LVOT area: 3.5 cm2 14.9 cm/sec 92.3 ml ESV(Teich): 39.7 ml EF(Teich): 56.9 % __ LVLd ap4: 8.7 cm SV(MOD-sp4): LAV(MOD-sp4): LA A2 area: 21.8 cm2 EDV(MOD-sp4): 76.2 ml 62.9 ml 135.0 ml LAV(MOD-sp2): LA A4 area: 22.1 cm2 LVLs ap4: 7.4 cm 62.3 ml LA length (vol): ESV(MOD-sp4): 6.2 cm 58.8 ml LA vol: 66.1 ml EF(MOD-sp4): 56.4 % LA vol index: 31.2 ml/m2 Doppler Measurements Calculations MV dec time: E/E' lat: 8.3 MV dec slope: Ao V2 max: 0.16 sec E/E' med: 8.1 143.9 cm/sec 424.4 cm/sec2 Ao max P.3 mmHg Ao mean P.6 mmHg Ao V2 mean: 102.7 cm/sec Ao V2 VTI: 26.9 cm CLARE(I,D): 2.5 cm2 CLARE(V,D): 2.7 cm2 __ LV V1 max PG: RAP systole: 4.8 mmHg 3.0 mmHg LV V1 mean P.5 mmHg LV V1 mean: 74.7 cm/sec LV V1 VTI: 19.3 cm Transcribed By: SCV Performed At: 12/05/23 0902 Signed By: Jhon King MD 12/05/23 1032 Normal [facility] Eosinophils Auto (Bld) [#/Vo l]Ordered By: Kailey Velasquez on 12-05-2023 Eosinophils (Bld) [#/Vol] 0.1 10*3/uL 0.0-0.45 Eosinophils/100 WBC Auto (Bl d)Ordered By: Kailey Velasquez on 12-05-2023 Eosinophils/100 WBC (Bld) 1.2 % . Erythrocyte distribution wid th Auto (RBC) [Ratio]Ordered By: Kailey Velasquez on 12-05-2023 Erythrocyte distribution width (RBC) [Ratio] 16.8 % 12.0-14.8 Glucose Glucometer (BldC) [M ass/Vol]Ordered By: Paul Barriga on 12-05-2023 Glucose [Mass/Vol] 130 mg/dL [facility] Comment on above: Random Glucose Refer ence Range is dependent on time and content of last meal. Glucose of more than 200 mg/dL in a nonstressed, ambulatory subject supports the diagnosis of Diabetes Mellitus. Glucose Poct Glucometerson 0 12-05-2023 Glucose [Mass/Vol] 130 mg/dL Normal [facility] Comment on above: Result Comment: [place] om Glucose Reference Range is dependent on time and content of last meal. Glucose of more than 200 mg/dL in a nonstressed, ambulatory subject supports the diagnosis of Diabetes Mellitus. PERFORMED BY: [facility] [address] [place] [address] PATHOLOGIST MANAGER LABOR DELIVERY JAIME PACKER M.D. Performed By: #### C BC, PT, PTT #### [facility] [address] Glucose [Mass/volume] in Ser um or PlasmaOrdered By: Kailey Velasquez on 12-05-2023 Glucose [Mass/Vol] 106 mg/dL 70-100 [facility] Comment on above: ADA recommended refe rence rangeRandom Glucose Reference Range is dependent on time and content of last meal. Glucose of more than 200 mg/dL in a nonstressed, ambulatory subject supports the diagnosis of Diabetes Mellitus. Hematocrit Auto (Bld) [Volum e fraction]Ordered By: Kailey Velasquez on 12-05-2023 Hematocrit (Bld) [Volume fraction] 34.1 % 38.8-50.0 Hemoglobin [Mass/volume] in BloodOrdered By: Kailey Velasquez on 12-05-2023 Hemoglobin (Bld) [Mass/Vol] 11.5 g/dL 13.0-17.0 Leukocytes [#/volume] correc basim for nucleated erythrocytes in Blood by Automated counOrdered By: Kailey Velasquez on 12-05-2023 WBC corrected for nucl RBC Auto (Bld) [#/Vol] 12.3 10*3/uL 4.1-10.5 Lymphocytes Auto (Bld) [#/Vo l]Ordered By: Kailey Velasquez on 12-05-2023 Lymphocytes (Bld) [#/Vol] 0.8 10*3/uL 1.00-4.8 Lymphocytes/100 WBC Auto (Bl d)Ordered By: Kailey Velasquez on 12-05-2023 Lymphocytes/100 WBC (Bld) 6.6 % . MCH Auto (RBC) [Entitic mass ]Ordered By: Kailey Velasquez on 12-05-2023 MCH (RBC) [Entitic mass] 35.8 pg 27.5-35.2 MCHC Auto (RBC) [Mass/Vol]Or dered By: Kailey Velasquez on 12-05-2023 MCHC (RBC) [Mass/Vol] 33.8 g/dL 32.5-35.6 MCV Auto (RBC) [Entitic vol] Ordered By: Kailey Velasquez on 12-05-2023 MCV (RBC) [Entitic vol] 105.6 fL 83.5-101 Monocytes Auto (Bld) [#/Vol] Ordered By: Kailey Velasquez on 12-05-2023 Monocytes (Bld) [#/Vol] 1.1 10*3/uL 0.0-0.8 Monocytes/100 WBC Auto (Bld) Ordered By: Kailey Velasquez on 12-05-2023 Monocytes/100 WBC (Bld) 8.8 % . Neutrophils Auto (Bld) [#/Vo l]Ordered By: Kailey Velasquez on 12-05-2023 Neutrophils (Bld) [#/Vol] 10.2 10*3/uL 1.8-7.7 Neutrophils/100 WBC Auto (Bl d)Ordered By: Kailey Velasquez on 12-05-2023 Neutrophils/100 WBC (Bld) 83.1 % . No Panel InformationOrdered By: Kailey Velasquez on 12-05-2023 Estimated GFR (CKD-EPI) 47.645 mL/Min Pharmacy Creatinine Clearance (Chem 51.88 Nucleated erythrocytes [Pres ence] in Blood by Automated countOrdered By: Kailey Velasquez on 12-05-2023 Nucleated RBC Auto Ql (Bld) 0.2 /100{WBC} 0-0.5 Platelet mean volume Auto (B ld) [Entitic vol]Ordered By: Kailey Velasquez on 12-05-2023 Platelet mean volume (Bld) [Entitic vol] 7.6 fL 6.6-10.1 Platelets Auto (Bld) [#/Vol] Ordered By: Kailey Velasquez on 12-05-2023 Platelets (Bld) [#/Vol] 339 10*3/uL 150-450 Potassium [Moles/volume] in Serum or PlasmaOrdered By: Kailey Velasquez on 12-05-2023 Potassium [Moles/Vol] 4.1 mmol/L 3.5-5.1 RBC Auto (Bld) [#/Vol]Ordere d By: Kailey Velasquez on 12-05-2023 RBC (Bld) [#/Vol] 3.23 10*6/uL 3.90-5.60 [facility] Serum or plasma anion gap de terminationOrdered By: Kailey Velasquez on 12-05-2023 Anion gap [Moles/Vol] 11.6 mmol/L 6.0-15.0 Sodium [Moles/volume] in Ser um or PlasmaOrdered By: Kailey Velasquez on 12-05-2023 Sodium [Moles/Vol] 141 mmol/L 136-145 [facility] Troponin I High Sensitivityo n 12-05-2023 Troponin I High Sensitivity 55550.3 pg/mL Off scale high 0.0-20.0 [facility] Comment on above: Result Comment: Crit ical Result : Called at: 12/05/2023 05:35:22 PERFORMED BY: [place] [address] PATHOLOGIST MANAGER LABOR DELIVERY JAIME PACKER M.D. Performed By: #### H S TROP #### [address] Troponin I.cardiac [Mass/vol ume] in Serum or Plasma by Detection limit <= 0.01 ng/Ordered By: Patricio Taylor on 12-05-2023 Troponin I.cardiac DL <= 0.01 ng/mL [Mass/Vol] 86843.3 pg/mL 0.0-20.0 Comment on above: Critical Result : Ca lledat: 12/05/2023 05:35:22 Urea nitrogen [Mass/volume] in Serum or PlasmaOrdered By: Kailey Velasquez on 12-05-2023 Urea nitrogen [Mass/Vol] 19 mg/dL 725 WBC Auto (Bld) [#/Vol]Ordere d By: Kailey Velasquez on 12-05-2023 WBC (Bld) [#/Vol] 12.3 10*3/uL 4.1-10.5 [facility] Activated partial thrombopla stin time (aPTT) in platelet poor plasma by coagulation aOrdered By: Kailey Velasquez on 12-04-2023 aPTT Coag (PPP) [Time] 44.7 s 25.1-36.5 Comment on above: A hematocrit value g reater than 55% may lead to inaccurate results in coagulation testing. Patients having hematocrit values >55% require a special collection tube for coagulation studies. Please contact the laboratory at [phone] for redraw instructions. Alanine aminotransferase [En zymatic activity/volume] in Serum or PlasmaOrdered By: Kailey Velasquez on 12-04-2023 ALT [Catalytic activity/Vol] 19 U/L 7-52 Albumin [Mass/volume] in Ser um or Plasma by Bromocresol green (BCG) dye binding methoOrdered By: Kailey Velasquez on 12-04-2023 Albumin BCG dye [Mass/Vol] 3.7 g/dL 3.5-5.7 Alkaline phosphatase [Enzyma tic activity/volume] in Serum or PlasmaOrdered By: Kailey Velasquez on 12-04-2023 ALP [Catalytic activity/Vol] 60 U/L 34-104 Aspartate aminotransferase [ Enzymatic activity/volume] in Serum or PlasmaOrdered By: Kailey Velasquez on 12-04-2023 AST [Catalytic activity/Vol] 74 U/L 13-39 Bilirubin.total [Mass/volume ] in Serum or PlasmaOrdered By: Kailey Velasquez on 12-04-2023 Bilirubin [Mass/Vol] 0.3 mg/dL 0.3-1.0 [facility] Cholesterol [Mass/volume] in Serum or PlasmaOrdered By: Kailey Velasquez on 12-04-2023 Cholesterol [Mass/Vol] 91 mg/dL 140-200 Comment on above: Chol less than 200 m g/dl low riskChol 201-239 mg/dl borderline riskChol 240 mg/dl and greater high risk Cholesterol in LDL Calc [Mas s/Vol]Ordered By: Kailey Velasquez on 12-04-2023 Cholesterol in LDL [Mass/Vol] 29 mg/dL 0-100 Comment on above: LDL ATP III CLASSIFI CATIONLDL less than 100 mg/dL OptimalLDL 100-129 mg/dL Near or above optimalLDL 130-159 mg/dL Borderline highLDL 160-189 mg/dL HighLDL greater than 189 mg/dL Very high Cholesterol in VLDL Calc [Ma ss/Vol]Ordered By: Kailey Velasquez on 12-04-2023 Cholesterol in VLDL [Mass/Vol] 46 mg/dL Complete Blood Count Auto Di ffon 12-04-2023 Basophils (Bld) [#/Vol] 0.0 10*3/uL Normal 0.0-0.2 [facility] Comment on above: Result Comment: PERF ORMED BY: [place] [address] PATHOLOGIST MANAGER LABOR DELIVERY JAIME PACKER M.D. Performed By: #### C BC #### [facility] [address] [place] [address] [place] Basophils/100 WBC (Bld) 0.5 % Normal . [facility] Comment on above: Performed By: #### C BC #### [facility] [address] [place] [address] [place] Eosinophils (Bld) [#/Vol] 0.2 10*3/uL Normal 0.0-0.45 [facility] Comment on above: Performed By: #### C BC #### [facility] [address] [place] [address] [place] Eosinophils/100 WBC (Bld) 2.2 % Normal . [facility] Comment on above: Performed By: #### C BC #### [address] Erythrocyte distribution width (RBC) [Ratio] 16.7 % High 12.0-14.8 [facility] Comment on above: Performed By: #### C BC #### [address] Hematocrit (Bld) [Volume fraction] 31.7 % Low 38.8-50.0 [facility] Comment on above: Performed By: #### C BC #### [address] Hemoglobin (Bld) [Mass/Vol] 11.0 g/dL Low 13.0-17.0 [facility] Comment on above: Performed By: #### C BC #### [address] Lymphocytes (Bld) [#/Vol] 1.0 10*3/uL Normal 1.00-4.8 [facility] Comment on above: Performed By: #### C BC #### [address] Lymphocytes/100 WBC (Bld) 12.5 % Normal . [facility] Comment on above: Performed By: #### C BC #### [address] MCH (RBC) [Entitic mass] 36.8 pg High 27.5-35.2 [facility] Comment on above: Performed By: #### C BC #### [address] MCV (RBC) [Entitic vol] 105.8 fL High 83.5-101 [facility] Comment on above: Performed By: #### C BC #### [address] Mean Corpuscular HGB Conc 34.7 g/dL Normal 32.5-35.6 [facility] Comment on above: Performed By: #### C BC #### [place] [address] [place] Monocytes (Bld) [#/Vol] 0.7 10*3/uL Normal 0.0-0.8 [facility] Comment on above: Performed By: #### C BC #### [address] Monocytes/100 WBC (Bld) 8.3 % Normal . [facility] Comment on above: Performed By: #### C BC #### [address] Neutrophils (Bld) [#/Vol] 6.1 10*3/uL Normal 1.8-7.7 [facility] Comment on above: Performed By: #### C BC #### [address] Neutrophils/100 WBC (Bld) 76.5 % Normal . [facility] Comment on above: Performed By: #### C BC #### [address] NRBC% 0.1 /100{WBC} Normal 0-0.5 [facility] Comment on above: Performed By: #### C BC #### [address] Platelet mean volume (Bld) [Entitic vol] 7.7 fL Normal 6.6-10.1 [facility] Comment on above: Performed By: #### C BC #### [place] [address] [place] Platelets (Bld) [#/Vol] 329 10*3/uL Normal 150-450 [facility] Comment on above: Performed By: #### C BC #### [address] RBC (Bld) [#/Vol] 3.00 10*6/uL Low 3.90-5.60 [facility] Comment on above: Performed By: #### C BC #### [address] [place] [address] [place] WBC (Bld) [#/Vol] 8.0 10*3/uL Normal 4.1-10.5 [facility] Comment on above: Performed By: #### C BC #### [address] Basophils (Bld) [#/Vol] 0.1 10*3/uL Normal 0.0-0.2 [facility] Comment on above: Result Comment: PERF ORMED BY: [place] [address] PATHOLOGIST MANAGER LABOR DELIVERY JAIME PACKER M.D. Performed By: #### C BC, PT, PTT #### [address] Basophils/100 WBC (Bld) 0.7 % Normal . [facility] Comment on above: Performed By: #### C BC, PT, PTT #### [address] Eosinophils (Bld) [#/Vol] 0.2 10*3/uL Normal 0.0-0.45 [facility] Comment on above: Performed By: #### C BC, PT, PTT #### [address] Eosinophils/100 WBC (Bld) 2.3 % Normal . [facility] Comment on above: Performed By: #### C BC, PT, PTT #### [address] Erythrocyte distribution width (RBC) [Ratio] 16.6 % High 12.0-14.8 [facility] Comment on above: Performed By: #### C BC, PT, PTT #### [address] Hematocrit (Bld) [Volume fraction] 34.6 % Low 38.8-50.0 [facility] Comment on above: Performed By: #### C BC, PT, PTT #### [address] Hemoglobin (Bld) [Mass/Vol] 11.7 g/dL Low 13.0-17.0 [facility] Comment on above: Performed By: #### C BC, PT, PTT #### [address] Lymphocytes (Bld) [#/Vol] 1.0 10*3/uL Normal 1.00-4.8 [facility] Comment on above: Performed By: #### C BC, PT, PTT #### [address] Lymphocytes/100 WBC (Bld) 11.9 % Normal . [facility] Comment on above: Performed By: #### C BC, PT, PTT #### [address] MCH (RBC) [Entitic mass] 35.7 pg High 27.5-35.2 [facility] Comment on above: Performed By: #### C BC, PT, PTT #### [address] MCV (RBC) [Entitic vol] 105.7 fL High 83.5-101 [facility] Comment on above: Performed By: #### C BC, PT, PTT #### [address] Mean Corpuscular HGB Conc 33.8 g/dL Normal 32.5-35.6 [facility] Comment on above: Performed By: #### C BC, PT, PTT #### [address] Monocytes (Bld) [#/Vol] 0.7 10*3/uL Normal 0.0-0.8 [facility] Comment on above: Performed By: #### C BC, PT, PTT #### [address] Monocytes/100 WBC (Bld) 8.0 % Normal . [facility] Comment on above: Performed By: #### C BC, PT, PTT #### [address] [address] [place] Neutrophils (Bld) [#/Vol] 6.7 10*3/uL Normal 1.8-7.7 [facility] Comment on above: Performed By: #### C BC, PT, PTT #### [address] Neutrophils/100 WBC (Bld) 77.1 % Normal . [facility] Comment on above: Performed By: #### C BC, PT, PTT #### [address] NRBC% 0.0 /100{WBC} Normal 0-0.5 [facility] Comment on above: Performed By: #### C BC, PT, PTT #### [address] Platelet mean volume (Bld) [Entitic vol] 7.6 fL Normal 6.6-10.1 [facility] Comment on above: Performed By: #### C BC, PT, PTT #### [address] Platelets (Bld) [#/Vol] 373 10*3/uL Normal 150-450 [facility] Comment on above: Performed By: #### C BC, PT, PTT #### [address] RBC (Bld) [#/Vol] 3.28 10*6/uL Low 3.90-5.60 [facility] Comment on above: Performed By: #### C BC, PT, PTT #### [address] WBC (Bld) [#/Vol] 8.7 10*3/uL Normal 4.1-10.5 [facility] Comment on above: Performed By: #### C BC, PT, PTT #### [address] Comprehensive Metabolic Pane shadi 12-04-2023 Albumin [Mass/Vol] 3.7 g/dL Normal 3.5-5.7 [facility] Comment on above: Performed By: #### C BC, PT, PTT #### [address] Albumin/Globulin [Mass ratio] 1.8 {ratio} Normal [facility] Comment on above: Performed By: #### C BC, PT, PTT #### [facility] [address] ALP [Catalytic activity/Vol] 60 U/L Normal 34-104 [facility] Comment on above: Performed By: #### C BC, PT, PTT #### [facility] [address] [place] [address] ALT [Catalytic activity/Vol] 19 U/L Normal 7-52 [facility] Comment on above: Performed By: #### C BC, PT, PTT #### [address] Anion gap [Moles/Vol] 12.9 mmol/L Normal 6.0-15.0 [facility] Comment on above: Performed By: #### C BC, PT, PTT #### [place] [address] [place] AST [Catalytic activity/Vol] 74 U/L High 13-39 [facility] Comment on above: Performed By: #### C BC, PT, PTT #### [address] Bilirubin [Mass/Vol] 0.3 mg/dL Normal 0.3-1.0 [facility] Comment on above: Performed By: #### C BC, PT, PTT #### [place] [address] [place] Calcium [Mass/Vol] 8.6 mg/dL Normal 8.6-10.3 [facility] Comment on above: Performed By: #### C BC, PT, PTT #### [place] [address] [place] Chloride [Moles/Vol] 113 mmol/L High 98-107 [facility] Comment on above: Performed By: #### C BC, PT, PTT #### [address] CO2 [Moles/Vol] 23.3 mmol/L Normal 21.0-31.0 [facility] Comment on above: Performed By: #### C BC, PT, PTT #### [place] [address] [place] Creatinine [Mass/Vol] 1.86 mg/dL High 0.70-1.30 [facility] Comment on above: Performed By: #### C BC, PT, PTT #### [place] [address] [place] Creatinine Clr Calc Pharmacy 44.07 Normal [facility] Comment on above: Performed By: #### C BC, PT, PTT #### [place] [address] [place] GFR/1.73 sq M.predicted MDRD (S/P/Bld) [Vol rate/Area] 39.174 mL/min/{1.73_m2} Normal [facility] Comment on above: Performed By: #### C BC, PT, PTT #### [place] [address] [place] Globulin (S) [Mass/Vol] 2.1 g/dL Normal [facility] Comment on above: Performed By: #### C BC, PT, PTT #### [place] [address] [place] Glucose [Mass/Vol] 112 mg/dL High 70-100 [facility] Comment on above: Result Comment: [place] Glucose Reference Range is dependent on time and content of last meal. Glucose of more than 200 mg/dL in a nonstressed, ambulatory subject supports the diagnosis of Diabetes Mellitus. ADA recommended reference range Performed By: #### C BC, PT, PTT #### [address] Potassium [Moles/Vol] 4.2 mmol/L Normal 3.5-5.1 [facility] Comment on above: Performed By: #### C BC, PT, PTT #### [place] [address] [place] Protein [Mass/Vol] 5.8 g/dL Low 6.4-8.9 [facility] Comment on above: Performed By: #### C BC, PT, PTT #### [address] Sodium [Moles/Vol] 145 mmol/L Normal 136-145 [facility] Comment on above: Performed By: #### C BC, PT, PTT #### [facility] [address] [place] [address] Urea nitrogen [Mass/Vol] 33 mg/dL High 7-25 [facility] Comment on above: Performed By: #### C BC, PT, PTT #### [address] ECG 12 lead ECGon 12-04-2023 ECG 12 [place] [address] Electrocardiograph Report Signed Patient: Kenyetta Schumacher I MR#: [id number] : 1955 Acct:[id number] Age/Sex: 68 / M ADM Date: 12/03/23 Loc: Room: [address] [place] [address] Type: ADM IN Attending Dr: Paul Barriga DO Ordering Provider: Kailey Velasquez MD Date of Service: 12/04/2303/21/500 ECG/ECG 12 lead ECG: abn Copies to: Test Reason : Blood Pressure : / mmHG Vent. Rate : 067 BPM Atrial Rate : 067 BPM P-R Int : 190 ms QRS Dur : 108 ms QT Int : 400 ms P-R-T Axes : 066 063 062 degrees QTc Int : 422 ms Normal sinus rhythm Incomplete right bundle branch block Borderline ECG No previous ECGs available Confirmed by [id number] on 12/04/2023 12:31:03 PM Referred By: Electronically Signed By:MONTSERRAT KING MD FAC Transcribed By: MUS Signed By Jhon King MD 12/04/23 1231 Normal [facility] ECG 12 lead ECG [facility] [employer] [address] [place] [address] Electrocardiograph Report Signed Patient: Kenyetta Schumacher I MR#: [id number] : 1955 Acct:[id number] Age/Sex: 68 / M ADM Date: 12/03/23 Loc: 4 Room: [address] [place] [address] Type: ADM IN Attending Dr: Paul Barriga DO Ordering Provider: Kailey Velasquez MD Date of Service: 12/03/2302/20/2328 ECG/ECG 12 lead ECG: NSTEMI Copies to: Test Reason : Blood Pressure : / mmHG Vent. Rate : 075 BPM Atrial Rate : 075 BPM P-R Int : 182 ms QRS Dur : 110 ms QT Int : 392 ms P-R-T Axes : 063 064 056 degrees QTc Int : 437 ms Normal sinus rhythm Incomplete right bundle branch block Borderline ECG When compared with ECG of 03-DEC-2023 23:32, (Unconfirmed) No significant change was found Confirmed by [facility] ([id number] on 12/04/2023 12:31:00 PM Referred By: HOSP Electronically Signed By:MONTSERRAT KING MD FAC Transcribed By: MUS Signed By Jhon King MD 12/04/23 1231 Normal [facility] Globulin Calc (S) [Mass/Vol] Ordered By: Kailey Velasquez on 12-04-2023 Globulin (S) [Mass/Vol] 2.1 g/dL Glucose Poct Glucometerson 0 12-04-2023 Glucose [Mass/Vol] 149 mg/dL Normal [facility] Comment on above: Result Comment: [place] Glucose Reference Range is dependent on time and content of last meal. Glucose of more than 200 mg/dL in a nonstressed, ambulatory subject supports the diagnosis of Diabetes Mellitus. PERFORMED BY: [place] [address] PATHOLOGIST MANAGER LABOR DELIVERY JAIME PACKER M.D. Performed By: #### C BC, PT, PTT #### [facility] [address] [place] [address] Glucose [Mass/Vol] 103 mg/dL Normal [facility] Comment on above: Result Comment: [place] om Glucose Reference Range is dependent on time and content of last meal. Glucose of more than 200 mg/dL in a nonstressed, ambulatory subject supports the diagnosis of Diabetes Mellitus. PERFORMED BY: [place] [address] PATHOLOGIST MANAGER LABOR DELIVERY JAIME PACKER M.D. Performed By: #### C BC, PT, PTT #### [address] Glucose [Mass/Vol] 72 mg/dL Normal [facility] Comment on above: Result Comment: [place] om Glucose Reference Range is dependent on time and content of last meal. Glucose of more than 200 mg/dL in a nonstressed, ambulatory subject supports the diagnosis of Diabetes Mellitus. PERFORMED BY: [place] [address] PATHOLOGIST MANAGER LABOR DELIVERY JAIME PACKER M.D. Performed By: #### C BC, PT, PTT #### [address] [address] [facility] Glucose [Mass/Vol] 113 mg/dL Normal [facility] Comment on above: Result Comment: [place] om Glucose Reference Range is dependent on time and content of last meal. Glucose of more than 200 mg/dL in a nonstressed, ambulatory subject supports the diagnosis of Diabetes Mellitus. PERFORMED BY: [place] [id number] PATHOLOGIST MANAGER LABOR DELIVERY JAIME PACKER M.D. Performed By: #### C BC, PT, PTT #### [address] [address] [facility] Lipid Panelon 12-04-2023 Cholesterol [Mass/Vol] 91 mg/dL Low 140-200 [facility] Comment on above: Result Comment: Chol less than 200 mg/dl low risk Chol 201-239 mg/dl borderline risk Chol 240 mg/dl and greater high risk Performed By: #### C BC, PT, PTT #### [place] [id number] [place] Cholesterol in HDL [Mass/Vol] 16 mg/dL Low 23-92 [facility] Comment on above: Result Comment: HDL CHOL ATP-III CLASSIFICATION Cardiovascular Risk HDL > or equal to 60 mg/dL LOW HDL < 40 mg/dL HIGH Performed By: #### C BC, PT, PTT #### [facility] [address] Cholesterol.total/Ch olesterol in HDL [Mass ratio] 5.7 {ratio} Normal <5.0 [facility] Comment on above: Result Comment: PERF ORMED BY: [place] [address] PATHOLOGIST MANAGER LABOR DELIVERY JAIME PACKER M.D. Performed By: #### C BC, PT, PTT #### [facility] [address] LDL Cholesterol,Calculat ed 29 mg/dL Normal 0-100 [facility] Comment on above: Result Comment: LDL ATP III CLASSIFICATION LDL less than 100 mg/dL Optimal LDL 100-129 mg/dL Near or above optimal LDL 130-159 mg/dL Borderline high LDL 160-189 mg/dL High LDL greater than 189 mg/dL Very high Performed By: #### C BC, PT, PTT #### [address] Triglyceride w/Reflex 230 mg/dL High 0-149 [facility] Comment on above: Result Comment: TRIG ATP III CLASSIFICATION TRIG less than 150 mg/dL Normal TRIG 150-199 mg/dL Borderline high TRIG 200-500 mg/dL High TRIG greater than 500 mg/dL Very high Standard traceable to the Center for Disease Conrtrol and Prevention (CDC) test method. Performed By: #### C BC, PT, PTT #### [facility] [address] VLDL CHOLESTEROL 46 mg/dL Normal [facility] Comment on above: Performed By: #### C BC, PT, PTT #### [facility] [address] Magnesiumon 12-04-2023 Magnesium [Mass/Vol] 1.9 mg/dL Normal 1.9-2.7 [facility] Comment on above: Order Comment: Commsantos nt add [id number] Result Comment: PERF ORMED BY: [place] [address] PATHOLOGIST MANAGER LABOR DELIVERY JAIME PACKER M.D. Performed By: #### C BC, PT, PTT #### [facility] [address] [place] [address] [place] Partial Thromboplastin Timeo n 12-04-2023 aPTT Coag (Bld) [Time] 44.7 s High 25.1-36.5 [facility] Comment on above: Result Comment: A he matocrit value greater than 55% may lead to inaccurate results in coagulation testing. Patients having hematocrit values >55% require a special collection tube for coagulation studies. Please contact the laboratory at [phone] for redraw instructions. PERFORMED BY: [place] [address] PATHOLOGIST MANAGER LABOR DELIVERY JAIME PACKER M.D. Performed By: #### C BC, PT, PTT #### [address] [address] [place] aPTT Coag (Bld) [Time] 43.6 s High 25.1-36.5 [facility] Comment on above: Result Comment: A he matocrit value greater than 55% may lead to inaccurate results in coagulation testing. Patients having hematocrit values >55% require a special collection tube for coagulation studies. Please contact the laboratory at [phone] for redraw instructions. PERFORMED BY: [place] [address] PATHOLOGIST MANAGER LABOR DELIVERY JAIME PACKER M.D. Performed By: #### C BC, PT, PTT #### [facility] [address] [place], [place] [id number] [place] aPTT Coag (Bld) [Time] 49.7 s High 25.1-36.5 [facility] Comment on above: Result Comment: A he matocrit value greater than 55% may lead to inaccurate results in coagulation testing. Patients having hematocrit values >55% require a special collection tube for coagulation studies. Please contact the laboratory at [phone] for redraw instructions. PERFORMED BY: [place] [address] PATHOLOGIST MANAGER LABOR DELIVERY JAIME PACKER M.D. Performed By: #### C BC, PT, PTT #### [place] [id number] [facility] Protein [Mass/volume] in Ser um or PlasmaOrdered By: Kailey Velasquez on 12-04-2023 Protein [Mass/Vol] 5.8 g/dL 6.4-8.9 [facility] Prothrombin Time INRon 12-03 INR Coag (PPP) [Relative time] 1.1 {INR} Normal [facility] Comment on above: Result Comment: INR Therapeutic Range A) Pre- and Peroperative OAT started two weeks before surgery. NOT HIP SURGERY: 1.5 - 2.5 HIP SURGERY: 2 - 3 B) Primary and secondary prevention of venous THROMBOSIS: 2 - 3 C) Active venous thrombosis, pulmonary embolism and prevention of recurrent venous thrombosis: 2 - 3 D) Prevention of arterial thromboembolism including patients with mechanical heart valves: 3 - 4.5 Performed By: #### C BC, PT, PTT #### [address] PT Coag (PPP) [Time] 12.7 s Normal 9.0-12.9 [facility] Comment on above: Result Comment: A he matocrit value greater than 55% may lead to inaccurate results in coagulation testing. Patients having hematocrit values >55% require a special collection tube for coagulation studies. Please contact the laboratory at [phone] for redraw instructions. Performed By: #### C BC, PT, PTT #### [address] [address] [facility] Serum or plasma albumin/glob ulin mass ratioOrdered By: Kailey Velasquez on 12-04-2023 Albumin/Globulin [Mass ratio] 1.8 {ratio} Serum or plasma high density lipoprotein (HDL) cholesterol measurementOrdered By: Kailey Velasquez on 12-04-2023 Cholesterol in HDL [Mass/Vol] 16 mg/dL 23-92 Comment on above: HDL CHOL ATP-III CLA SSIFICATION Cardiovascular RiskHDL > or equal to 60 mg/dL LOWHDL < 40 mg/dL HIGH Serum or plasma total choles terol/high density lipoprotein (HDL) cholesterol mass ratOrdered By: Kailey Velasquez on 12-04-2023 Cholesterol.total/Ch olesterol in HDL [Mass ratio] 5.7 {ratio} <5.0 Triglyceride [Mass/volume] i n Serum or PlasmaOrdered By: Kailey Velasquez on 12-04-2023 Triglyceride [Mass/Vol] 230 mg/dL 0-149 Comment on above: TRIG ATP III CLASSIF ICATIONTRIG less than 150 mg/dL NormalTRIG 150-199 mg/dL Borderline highTRIG 200-500 mg/dL High TRIG greater than 500 mg/dL Very highStandard traceable to the Center for Disease Conrtrol and Prevention (CDC) test method. Troponin I High Sensitivityo n 12-04-2023 Troponin I High Sensitivity 85504.0 pg/mL Off scale high 0.0-20.0 [facility] Comment on above: Result Comment: Crit ical Result : Called to and read back by: CARLITOS BANG at: 12/04/2023 18:37:20 by:YANDY PERFORMED BY: [place] [address] PATHOLOGIST MANAGER LABOR DELIVERY JAIME PACKER M.D. Performed By: #### H S TROP #### [facility] [address] [place] [address] Troponin I High Sensitivity 13464.2 pg/mL Off scale high 0.0-20.0 [facility] Comment on above: Order Comment: Criti emeli value result called at [phone] on 12/04/23 Result Comment: Crit ical value result calls attempted x4 at 0932 on 12/04/23 PERFORMED BY: [place] [address] PATHOLOGIST MANAGER LABOR DELIVERY JAIME PACKER M.D. Performed By: #### C BC, PT, PTT #### [address] Troponin I High Sensitivity 11768.1 pg/mL Off scale high 0.0-20.0 [facility] Comment on above: Order Comment: 0330 Result Comment: Crit ical Result : Called to and read back by: ABDOUL SANTILLAN at: 12/04/2023 05:37:26 by:[id number] PERFORMED BY: [place] [phone] PATHOLOGIST MANAGER LABOR DELIVERY JAIME PACKER M.D. Performed By: #### H S TROP #### [address] Troponin I High Sensitivity 5343.8 pg/mL Off scale high 0.0-20.0 [facility] Comment on above: Result Comment: Crit ical Result : Called to and read back by: ABDOUL SANTILLAN at: 12/04/2023 00:58:14 by:[email or web address] PERFORMED BY: [place] [address] PATHOLOGIST MANAGER LABOR DELIVERY JAIME PACKER M.D. Performed By: #### H S TROP #### [address] INR in Platelet poor plasma by Coagulation assayOrdered By: Kailey Velasquez on 12-03-2023 INR Coag (PPP) [Relative time] 1.1 {INR} Comment on above: INR Therapeutic Rang e A) Pre- and Peroperative OAT started two weeks before surgery. NOT HIP SURGERY: 1.5 - 2.5 HIP SURGERY: 2 - 3B) Primary and secondary prevention of venous THROMBOSIS: 2 - 3C) Active venous thrombosis, pulmonary embolismand prevention of recurrent venous thrombosis: 2 - 3D) Prevention of arterial thromboembolismincluding patients with mechanical heart valves: 3 - 4.5 Magnesium [Mass/volume] in S stanislaw or PlasmaOrdered By: Kailey Velasquez on 12-03-2023 Magnesium [Mass/Vol] 1.9 mg/dL 1.9-2.7 [facility] Prothrombin time (PT)Ordered By: Kailey Velasquez on 12-03-2023 PT Coag (PPP) [Time] 12.7 s 9.0-12.9 [facility] Comment on above: A hematocrit value g reater than 55% may lead to inaccurate results in coagulation testing. Patients having hematocrit values >55% require a special collection tube for coagulation studies. Please contact the laboratory at [phone] for redraw instructions. Ambulatory Visit Summaryon 0 11-29-2023 Ambulatory Visit Summary KENYETTA SCHUMACHER I :1955 Visit Date:11/29/2023 Ambulatory Visit Instructions Your Diagnosis BMI 33.0-33.9,adult Nasal congestion Your Care Team Attending Physician - SHARI TURNER CNP Primary Care Physician - Raul Byrd MD This Is Your Medications List Misc Prescription (IM 3ml syringes/needles 25gauge, 1 ) [...] Follow-Up Appointments Tuesday 1:00 PM EDT With: Raul Byrd MD Where: [facility] [place] Normal [facility] Family Medicine Office/Clini c Noteon 11-29-2023 Family [...] reports he went to his son's for Easter and yesterday he started with a sore [...] day(s), # 6 tab(s), Refills(s) 0, Pharmacy: [facility]/pharmacy #[id number], 172, cm, 11/29/23 10:49:00 EDT, Height/Length [...] day(s), # 6 tab(s), Refills(s) 0, Pharmacy: [facility]/pharm[facility] #[id number], 172, cm, 11/29/23 10:49:00 EDT, Height/Length Dosing, 99.4, kg, 11/29/23 10:49:00 EDT, Weight Dosing Influenza Type A&B POC 35915 Follow-up No qualifying data available Problem List/Past [...] data Procedure (more content not included)... Normal [facility] Comment on above: Result Comment: Elec tronically Signed By: SHARI TURNER CNP\Date and Time Signed: 11/29/23 12:05 EDT Physician Orderon 11-21-2023 Physician Order [id number] 2#1.00TIFF [facility] U Microalbon 11-15-2023 Albumin DL <= 20 mg/L (U) [Mass/Vol] 71.0 mg/dL High 0.0-1.9 [facility] Comment on above: Result Comment: This result was corrected due to a unit change error. Please see rachael for further explanation. Performed By: #### 1 [id number] #### [facility] Laboratory [address] [place] [address] Physician Orderon 11-03-2023 Physician Order [id number] #1.00TIFF [facility] Lab Reportson 11-01-2023 Lab Reports [id number] #1.00TIFF [facility] Consent for Treatmenton Consent for Treatment [id number] #1.00TIFF [facility] Oncology Progress Noteon Oncology Progress Note Diagnoses 1. Macrocytic anemia (D53.9: Nutritional anemia, unspecified) 2. Stage 3b chronic kidney disease (N18.32: Chronic kidney disease, stage 3b) Oncological History/ROS/PE/Asses sment and Plan Chief Complaint Follow-up for macrocytosis [...] then, followed up for 10 years in [place] and no longer is followed, was about [...] Review of Systems Constitutional: Negative. Eye: Negative. Ear/Nose/Mouth/Throa t: Negative. Respiratory: Negative. Cardiovascular: Negative. Gastrointestinal: Negative. Genitourinary: Negative. Hematology/Lymphatic s: Negative. Endocrine: Negative. Immunologic: Negative. Musculoskeletal: Negative. Integumentary: Negative. Neurologic: Negative. Psychiatric: Negative. Physical Examination General: Alert and oriented, No acute distress. Eye: Pupils are equa (more content not included)... Normal [facility] Lab Miscellaneous-LCon 10-13 Lab Miscellaneous See Ref Report Invalid Interpretation Code [facility] Comment on above: Order Comment: [facility] will forward this test to [facility] for testing. [facility] req. Lab Misc #[id number] and add to req for test to be forwarded to [facility] test number is [id number]. Per onc. patient to go to OP for testing. Copy of papers were sent to out patient so they know what to draw. [id number] 10/05/2023 09:40:45 EST Result Comment: Perf ormed at: [address] [id number] PhD Celestine Bone Performed at: [address] [id number] PhD Celestine Bone See scanned report Performed By: #### 1 [id number] #### [facility] Laboratory [address] [place] [address] Physician Orderon 10-13-2023 Physician Order [id number] 5#1.00TIFF Normal [facility] Reference Lab Reporton 10-13 Reference Lab Report [id number] 7#1.00TIFF Normal [facility] Reference Lab Reporton 10-12 Reference Lab Report [id number] 29#1.00TIFF Normal [facility] [id number] 10-11-2023 HbA1c (Bld) [Mass fraction] 5.9 % Normal <=5.9 [facility] Comment on above: Performed By: #### 2 [id number], [id number], [id number], [id number] ####[facility] [address] [place] [address] CHEMISTRYOrdered By: SYSTEM SYSTEM on 10-10-2023 Albumin [Mass/Vol] 4.5 g/dL Normal 3.3 - 5.0 gm/dL R emisol Chem Albumin/Globulin [Mass ratio] 1.5 {ratio} Normal 1.1 - 2.2 Remisol Chem Alk Phos 61 [iU]/d Normal 21 - 98 Int._Unit/L Remisol Chem ALT 16 [iU]/d Normal 6 - 46 Int._Unit/L Remiso l Chem Anion gap [Moles/Vol] 14 mmol/L Normal 6 - 16 mEq/L [facility] Chem AST 17 [iU]/d Normal 5 - 43 Int._Unit/L Remiso l Chem Bili Total 0.4 mg/dL Normal 0.0 - 1.1 mg/dL Remisol C hem Calcium [Mass/Vol] 9.4 mg/dL Normal 8.9 - 11.1 mg/dL [facility] Chloride [Moles/Vol] 109 mmol/L Normal 101 - 111 mmol/ L [facility] Cholesterol [Mass/Vol] 107 mg/dL Low 120 - 200 mg/dL [facility] Cholesterol in HDL [Mass/Vol] 21 mg/dL Invalid Interpretation Code [facility] Comment on above: Result Comment: '>= 60 LOW RISK' '<= 40 HIGH RISK' Cholesterol in LDL [Mass/Vol] 51 mg/dL Normal <=129mg/dL [facility] CO2 [Moles/Vol] 23 mmol/L Normal 21 - 31 mmol/L Remis ol Chem Creatinine [Mass/Vol] 1.9 mg/dL High 0.5 - 1.3 mg/dL [facility] Chem eGFR 38 mL/min/1.73 m2 Low >=59mL/min/1.73 m2 [facility] Globulin (S) [Mass/Vol] 3.0 g/dL Normal 1.4 - 4.0 gm/dL [facility] Glucose [Mass/Vol] 112 mg/dL Normal 55 - 199 mg/dL Re misol Chem Potassium [Moles/Vol] 5.4 mmol/L High 3.5 - 5.3 mmol/L Remisol Chem Protein [Mass/Vol] 7.5 g/dL Normal 6.0 - 7.8 gm/dL R emisol Chem Sodium [Moles/Vol] 141 mmol/L Normal 135 - 145 mmol/L [facility] Triglyceride [Mass/Vol] 429 mg/dL High <=149mg/dL [facility] U Microalb 71.0 microgram/mL High 0.0 - 19.0 mcg/mL [facility] Urea nitrogen [Mass/Vol] 34 mg/dL High 5 - 21 mg/dL [facility] Urea nitrogen/Creatinine [Mass ratio] 18 mg/mg Normal 10 - 20 Rem[facility] VLDL Unable to Calculate mg/dL Invalid Interpretation Code 7 - 40 mg/dL [facility] Comment on above: Result Comment: 'FELY BLE TO REPORT. TRIG > 400 mg/dl' CMPon 10-10-2023 Albumin [Mass/Vol] 4.5 g/dL Normal 3.3-5.0 [facility] Comment on above: Performed By: #### 2 538434, [id number], [id number], [id number] #### [facility] [address] [place] [address] Albumin/Globulin [Mass ratio] 1.5 {ratio} Normal 1.1-2.2 [facility] Comment on above: Performed By: #### 2 618474, [id number], [id number], [id number] #### [facility] [address] [place] [address] Alk Phos 61 Int._Unit/L Normal 21-98 [facility] Comment on above: Performed By: #### 2 710937, [id number], 75441392, 5422578 #### [facility] [address] [place] [address] ALT 16 Int._Unit/L Normal 6-46 [facility] Comment on above: Performed By: #### 2 672829, [id number], 02646945, 2932215 #### [facility] [address] [place] [address] Anion gap [Moles/Vol] 14 mmol/L Normal 6-16 [facility] Comment on above: Performed By: #### 2 960101, [id number], 23510105, 4792496 #### [facility] [address] [place] [address] AST 17 Int._Unit/L Normal 5-43 [facility] Comment on above: Performed By: #### 2 239797, [id number], 24047461, 2270090 #### [facility] [address] [place] [address] Bili Total 0.4 mg/dL Normal 0.0-1.1 [facility] Comment on above: Performed By: #### 2 769185, [id number], 08976856, 1200481 #### [facility] [address] [place] [address] BUN/Creat Ratio 18 No Units Normal 10-20 [facility] Comment on above: Performed By: #### 2 846275, 893843285, 65435405, 1470184 #### [facility] [address] [place] [address] Calcium [Mass/Vol] 9.4 mg/dL Normal 8.9-11.1 [facility] Comment on above: Performed By: #### 2 134922, [id number], 83121562, 5248681 #### [facility] [address] [place] [address] Chloride [Moles/Vol] 109 mmol/L Normal 101-[address] [facility] Comment on above: Performed By: #### 2 066113, [id number], 01818950, 3233643 #### [facility] [address] [place] [address] CO2 [Moles/Vol] 23 mmol/L Normal 21-[address] [facility] Comment on above: Performed By: #### 2 736244, 101739327, 93480765, 2260662 #### [facility] [address] [place] [address] Creatinine [Mass/Vol] 1.9 mg/dL High 0.5-1.3 [facility] Comment on above: Performed By: #### 2 018512, [id number], 09628283, 2913784 #### [facility] [address] [place] [address] Globulin (S) [Mass/Vol] 3.0 g/dL Normal 1.4-4.0 [facility] Comment on above: Performed By: #### 2 854787, [id number], 40505686, 4294442 #### [facility] [address] [place] [address] Glucose [Mass/Vol] 112 mg/dL Normal 55-199 [facility] Comment on above: Performed By: #### 2 926108, [id number], 18139174, 8510010 #### [facility] [address] [place] [address] Potassium [Moles/Vol] 5.4 mmol/L High 3.5-5.3 [facility] Comment on above: Performed By: #### 2 250091, 004253514, 24809357, 5570142 #### [facility] [address] [place] [address] Protein [Mass/Vol] 7.5 g/dL Normal 6.0-7.8 [facility] Comment on above: Performed By: #### 2 077074, 371329173, 48996188, 7273124 #### [facility] [address] [place] [address] Sodium [Moles/Vol] 141 mmol/L Normal 135-145 [facility] Comment on above: Performed By: #### 2 517450, 740875531, 23844257, 5959648 #### [facility] [address] [place] [address] Urea nitrogen [Mass/Vol] 34 mg/dL High 5-21 [facility] Comment on above: Performed By: #### 2 737303, [id number], 90902841, 2464936 #### [facility] [address] [place] [address] Family Medicine Office/Clini c Noteon 10-10-2023 Family Medicine Office/Clinic Note HPI Staff Sprague is a 68 year old male presenting [...] qWeek, # 4 EA, Refills(s) 0, Pharmacy: [facility]/pharmacy #[id number], 172, cm, 10/10/23 13:06:00 EST, Height/Length Dosing, 103.5, kg, 10/10/23 13:10:00 EST, Weight Dosing valsartan, 160 mg = 1 tab(s), Oral, Daily, # 90 tab(s), Refills(s) 3, Pharmacy: [facility]/pharmacy #[id number], 172, cm, 10/10/23 13:06:00 EST, Height/Length [...] zoster vaccin (more content not included)... Normal [facility] Comment on above: Result Comment: Elec tronically Signed By: Sb LUNDY, Raul Nielsen.br\Date and Time Signed: 10/10/23 13:35 EST Lipid Panelon 10-10-2023 VLDL UTC Abnormal 7-40 [facility] Comment on above: Result Comment: 'FELY BLE TO REPORT. TRIG > 400 mg/dl' Result verified by [employer] Rule. Performed result UT (Unable to Calculate) was sent as an Alpha code due the inability to calculate a valid numeric value. Performed By: #### 2 705882, [id number], 32078951, 3261471 ####[facility] [address] [place] [address] Cholesterol [Mass/Vol] 107 mg/dL Low 120-200 [facility] Comment on above: Performed By: #### 2 011961, [id number], 99710026, 2014759 ####[facility] [address] [place] [address] Cholesterol in HDL [Mass/Vol] 21 mg/dL Invalid Interpretation Code [facility] Comment on above: Result Comment: '>= 60 LOW RISK' '<= 40 HIGH RISK' Performed By: #### 2 322976, [id number], 10825759, 8737733 ####[facility] [address] [place] [address] Cholesterol in LDL [Mass/Vol] 51 mg/dL Normal <=129 [facility] Comment on above: Performed By: #### 2 110321, [id number], 97948730, 0890561 ####[facility] [address] [place] [address] Triglyceride [Mass/Vol] 429 mg/dL High <=149 [facility] Comment on above: Performed By: #### 2 717196, 836206997, 78490774, 4334759 ####[facility] [address] [place] [address] eGFRon 10-10-2023 eGFR 38 mL/min/1.73 m2 Low >=59 [facility] Comment on above: Order Comment: Order added by Discern Expert. Performed By: #### 2 589395, [id number], 21444401, 8231914 ####[facility] [address] [place] [address] Lab Miscellaneous-LCon 10-07 Lab Miscellaneous COMMENT Invalid Interpretation Code [facility] Comment on above: Result Comment: Test Ordered: [id number] MDS FISH Panel Cells Counted Comment: NAVEED [...] Am Soc Hematol Educ Program 2013:504-10. PMID: 28666870 Wanda Arriola and Shawnee Shah, (2011) Hematology 16(3):131-8. PMID: 51099033 This test was developed and its performance characteristics determined by [employer] It has not been cleared or approved by the U.S. Food and Drug Administration. The DNA probe vendor for this study was [employer] Specimen Type Comment: NAVEED BLOOD Director Review: Comment: NAVEED ABDULLAHI, PHD, FACMG Performed at: [address] [id number] PhD Celestine Bone Performed By: #### 1 [id number] #### [facility] Laboratory [address] [place] [address] Consent for Treatmenton Consent for Treatment [id number] #1.00TIFF Normal [facility] Lab Miscellaneous-LCon 10-05 Test Code TBD Invalid Interpretation Code [facility] Comment on above: Order Comment: this test is to be sent to [facility] and they will forward this test to [facility] for testing. [facility] Lab Mis #[id number] and add to req for test to be forwarded to [facility] test number is [id number]. Per onc. patient to go to OP for testing. Copy of papers were sent to out patient so they know what to draw. [email or web address] 10/05/2023 09:40:45 EST Performed By: #### 1 [id number] #### [facility] Laboratory [address] [place] [address] Test Name spherocytosis Invalid Interpretation Code [facility] Comment on above: Order Comment: this test is to be sent to [employer] system master and they will forward this test to [facility] for testing. Account bill sent to [facility] on manual req. Lab Mis #[id number] and add to req for test to be forwarded to [facility] test number is [id number]. Per onc. patient to go to OP for testing. Copy of papers were sent to out patient so they know what to draw. [id number] 10/05/2023 09:40:45 EST Performed By: #### 1 [id number] #### [facility] Laboratory [address] [place] [address] Reference Laboratory Testing Ordered By: Vandana Sanchez on 10-05-2023 Test Code TBD Invalid Interpretation Code [facility] SendOutsSS Test Name spherocytosis Invalid Interpretation Code [facility] SendOutsSS Consent for Treatmenton Consent for Treatment [id number] #1.00TIFF Normal [facility] Consent for Treatment [id number] #1.00TIFF Normal [facility] Immunoglobs. A/E/G/Mon 10-03 IgA Quant duplt test Invalid Interpretation Code [facility] Comment on above: Performed By: #### 1 7283458, [id number], 6013602, 9703214, 17765735, 8231324, 7444799, 5811801, 3698806, 2158140, 6001190, 2545398, 33330004, 28013333, 4792517 ####[facility] [address] [place] [address] IgG Quant duplt test Invalid Interpretation Code [facility] Comment on above: Performed By: #### 1 7116885, 810652293, 0424845, 2349669, 47949752, 1245968, 1151531, 4574621, 9889799, 4509666, 3321214, 0188280, 32302869, 26236460, 2761940 ####[facility] [address] [place] [address] IgM Quant duplt test Invalid Interpretation Code [facility] Comment on above: Performed By: #### 1 6619592, 809989052, 1281278, 6913520, 26172739, 7331800, 4716559, 3676613, 2378171, 4849847, 1368756, 0139621, 33669603, 63666533, 1196330 ####[facility] [address] [place] [address] Lab Miscellaneous-LCon 10-03 Test Code 475962 Invalid Interpretation Code [facility] Comment on above: Performed By: #### 1 [id number] #### [facility] Laboratory [address] [place] [address] Test Name MDS FISH Invalid Interpretation Code [facility] Comment on above: Performed By: #### 1 [id number] #### [facility] Laboratory [address] [place] [address] Oncology Progress Noteon Oncology Progress Note Diagnoses Macrocytosis (D75.89: Other specified diseases of blood and blood-forming organs) Ordered: Immunoglobs. A/E/G/M Lab Miscellaneous-LC ONC Office Visit 30 Min Orders: cyanocobalamin, 1,000 mcg, IntraMuscular, q2wk, # 30 mL, Refills(s) 5, [id number], cm, 05/31/23 15:29:00 EDT, Height/Length Dosing, 102.6, kg, 05/31/23 15:29:00 EDT, Weight Dosing cyanocobalamin, 1,000 mcg, IntraMuscular, q2wk, # 30 mL, Refills(s) 5, Pharmacy: [facility]/pharmacy #[id number], 172, cm, 10/03/23 15:12:00 EST, Height/Length Dosing, 102.3, kg, 10/03/23 15:12:00 EST, Weight Dosing Misc Prescription, IM 3ml syringes/needles 25gauge, 1 , See Instructions, 1 kit(s), 5, IM syringes/needles for B12 injections every 2 weeks, [facility]/pharmacy #[id number], Supply, 172, cm, 05/31/23 15:29:00 EDT, Height/Length Dosing, 102.6, kg, 05/31/23 15:29:00 EDT, Weight Dosing Misc Prescription, IM 3ml syringes/needles 25gauge, 1 , See Instructions, 1 kit(s), 5, IM syringes/needles for B12 injections every 2 weeks, [id number], 172, cm, 10/03/23 15:12:00 EST, Height/Length Dosing, 102.3, kg, 10/03/23 15:12:00 EST, Weight Dosing Chief Complaint Anemia Per patient no questions or concerns. Oncological History/ROS/PE/Asses sment and Plan Chief Complaint Follow-up for macrocytosis [...] then, followed up for 10 years in [place] and no longer is followed, was about [...] Review of Systems Constitutional: Negative. Eye: Negative. Ear/Nose/Mouth/Throa t: Negative. Respiratory: Negative. Cardiovascular: Negative. Gastrointestinal: Negative. Genitourinary: Negative. Hematology/Lymphatic s: Negative. Endocrine: Negative. Immunologic: Negative. Musculoskeletal: Negative. Integumentary: Negative. Neurologic: Negative. (more content not included)... Normal [facility] Reference Laboratory Testing Ordered By: Susana Lucas on 10-03-2023 Test Code 929047 [address] [facility] SendOutsSS Test Name MDS FISH Invalid Interpretation Code [facility] SendOutsSS Free K+L Lt Chains,Qn,Son Immunoglobulin light chains.kappa.free (S) [Mass/Vol] 71.1 mg/L High 3.3-19.4 [facility] Comment on above: Performed By: #### 1 1094032, 026660976, 1739045, 3683419, 99488715, 6685078, 3295935, 7139472, 2659487, 6193105, 5719245, 4019628, 12901140, 74392266, 9009831 ####[facility] [address] [place] [address] Immunoglobulin light chains.kappa.free/Im munoglobulin light chains.lambda.free (S) [Mass ratio] 1.58 Invalid Interpretation Code 0.26-1.65 [facility] Comment on above: Result Comment: Perf ormed at: [facility] [address] [id number] PhD Celestine Bone Performed By: #### 1 7956539, 823345319, 8166413, 8842632, 68656113, 8089371, 0068341, 8788982, 1304422, 1687190, 3186396, 0287845, 14989445, 62324548, 0405662 ####[facility] [address] [place] [address] Immunoglobulin light chains.lambda.free [Mass/Vol] 45.0 mg/L High 5.7-26.3 [facility] Comment on above: Performed By: #### 1 9380881, 474622051, 7290911, 3264365, 09716618, 4302327, 3036379, 3709437, 3106616, 7018824, 8287639, 0457039, 88472073, 08163289, 9781173 ####[facility] [address] [place] [address] REBECCA and PE, Serumon 09-28-19 24 Albumin [Mass/Vol] 3.9 g/dL Invalid Interpretation Code 2.9-4.4 [facility] Comment on above: Performed By: #### 1 8971794, 151514951, 4608102, 2369948, 13031728, 4052070, 8263001, 0612078, 8122496, 8984171, 8352001, 9481191, 67391242, 29934272, 0383465 ####[facility] [address] [place] [address] Albumin/Globulin [Mass ratio] 1.3 {ratio} Invalid Interpretation Code 0.7-1.7 [facility] Comment on above: Performed By: #### 1 9047958, 927032447, 5573669, 0560412, 52022221, 9772134, 7376768, 1714190, 0225234, 5989097, 5158530, 4692152, 17808038, 08323167, 7491133 ####[address] [place] [address] Alpha 1 globulin Elph [Mass/Vol] 0.2 g/dL Invalid Interpretation Code 0.0-0.4 [facility] Comment on above: Performed By: #### 1 8385470, 999485251, 9224380, 0783803, 59872813, 8583652, 1198888, 1510400, 9466151, 6272467, 8665260, 9652815, 71526078, 25811655, 0999610 ####[address] [place] [address] Alpha 2 globulin Elph [Mass/Vol] 0.7 g/dL Invalid Interpretation Code 0.4-1.0 [facility] Comment on above: Performed By: #### 1 2476934, 211551875, 4911273, 9055571, 46681578, 6039606, 7033655, 1425323, 4667817, 9124124, 2300369, 2733234, 41620990, 55217555, 4153413 ####[address] [place] [address] Beta globulin Elph [Mass/Vol] 1.0 g/dL Invalid Interpretation Code 0.7-1.3 [facility] Comment on above: Performed By: #### 1 3055055, 787423358, 7880330, 7758952, 38703453, 8900316, 4668737, 5487837, 0993979, 2377688, 2074920, 1848508, 41942377, 86623661, 8922485 ####[facility] [address] [place] [address] Gamma globulin Elph [Mass/Vol] 1.1 g/dL Invalid Interpretation Code 0.4-1.8 [facility] Comment on above: Performed By: #### 1 5304862, 802104025, 5661220, 1908331, 02913697, 0789302, 3679140, 3671122, 9448673, 7606108, 6726683, 6392762, 65872061, 93191293, 5942705 ####[address] [place] [address] Globulin (S) [Mass/Vol] 3.1 g/dL Invalid Interpretation Code 2.2-3.9 [facility] Comment on above: Performed By: #### 1 0479702, 448630763, 1837715, 7771232, 22432668, 3977899, 3494943, 3051192, 9866801, 8966458, 9868057, 6288289, 68680032, 79695450, 5861401 ####[address] [place] [address] IgA [Mass/Vol] 253 mg/dL Invalid Interpretation Code 61437 [facility] Comment on above: Performed By: #### 1 1077561, 796546983, 8446549, 8870966, 46248532, 4380858, 2077354, 6735528, 6384584, 1275743, 3958407, 8064144, 12814427, 83758250, 3349402 ####[address] [place] [address] IgG [Mass/Vol] 1185 mg/dL Invalid Interpretation Code 603-6482 [facility] Comment on above: Performed By: #### 1 3308314, 130715319, 8111471, 8747206, 11009715, 0728111, 6824134, 5483591, 8640087, 8237222, 5354424, 5132626, 27736597, 18279322, 6386631 ####[facility] [address] [place] [address] IgM [Mass/Vol] 95 mg/dL Invalid Interpretation Code 20172 [facility] Comment on above: Performed By: #### 1 8942397, 551193430, 6880197, 8344780, 58874292, 7013531, 8693358, 6416616, 2606827, 0310652, 6873226, 5725471, 55254789, 71810334, 1970598 ####[facility] [address] [place] [address] Interpretation IEP [Interp] Comment Invalid Interpretation Code [facility] Comment on above: Result Comment: No m onoclonality detected. Performed By: #### 1 0957043, 621680132, 9800753, 3497785, 74250610, 0509530, 6172207, 2957590, 5515737, 7623145, 7668677, 9784539, 09235782, 64792937, 2950217 ####[facility] [address] [place] [address] Laboratory comment Christopher (Report) Comment Invalid Interpretation Code [facility] Comment on above: Result Comment: Prot ein electrophoresis scan will follow via computer, mail, or electroencephalogram technologist delivery. Performed at: [address] [id number] PhD Celestine Bone Performed By: #### 1 8889424, 355943847, 8970605, 7600734, 20053991, 4610529, 0527718, 4416126, 9513083, 5097169, 6241473, 0132774, 31703753, 46051212, 4395489 ####[facility] [address] [place] [address] Protein [Mass/Vol] 7.0 g/dL Invalid Interpretation Code 6.0-8.5 [facility] Comment on above: Performed By: #### 1 3658004, 542782024, 4698032, 0065155, 36990194, 7081089, 2104672, 1260629, 9679145, 3382272, 4079428, 1457731, 17227592, 58577026, 9047693 ####[address] [place] [address] Protein.monoclonal Elph [Mass/Vol] Not Observed Invalid Interpretation Code Not Observed [facility] Comment on above: Performed By: #### 1 4871982, 703107511, 3871569, 5819131, 41119029, 3223793, 3482232, 1823349, 8932053, 6500635, 5219671, 2673177, 84968616, 64895270, 6968775 ####[address] [place] [address] Immunoglobs. A/E/G/Mon 09-28 IgE Qn 96 International_Unit/m L Invalid Interpretation Code 6-495 [facility] Comment on above: Result Comment: Perf ormed at: [facility] [address] [id number] MD Modesto Robertson Performed By: #### 1 7433134, 407507027, 7175414, 2862784, 36410914, 3467757, 9451136, 2768942, 0402516, 2392964, 4071450, 4481653, 93417302, 10660715, 0332332 ####[address] [place] [address] Path. Reviewon 09-26-2023 Path Review No increase of reticulocytes, schistocytes or hypersegmented granulocytes. Invalid Interpretation Code [facility] Comment on above: Order Comment: Order added by Discern Expert Performed By: #### 1 7754101, 154115176, 0536948, 3266275, 22232123, 7698891, 5344941, 1941506, 0034451, 3195901, 5045124, 0344522, 57193503, 42523510, 3293292 ####[facility] [address] [place] [address] Path. Review No increase of reticulocytes, schistocytes or hypersegmented granulocytes. CPT 09964 Invalid Interpretation Code [facility] Comment on above: Other Comment: Order added by Discern Expert CBC w/ Auto Diffon 4 Anisocytosis Ql (Bld) PRESENT Invalid Interpretation Code [facility] Comment on above: Performed By: #### 1 5463957, 551333217, 4184455, 4067802, 63077208, 1386163, 9263438, 3726508, 3714205, 9423733, 4541079, 4482979, 91969491, 38403230, 4104411 ####[address] [place] [address] Band form neutrophils/100 WBC (Bld) 3 % Normal 0-6 [facility] Comment on above: Performed By: #### 1 0012366, 167694749, 8310564, 3868647, 53175712, 1627028, 7439011, 6202229, 1484484, 8725203, 0814541, 3479593, 11901392, 08696473, 1161514 ####[address] [place] [address] Basophils/100 WBC (Bld) 1 % Normal 0-1 [facility] Comment on above: Performed By: #### 1 3688328, 572399608, 7811702, 2135269, 51708752, 2534672, 5338983, 1128787, 8159229, 9146953, 5134211, 9789503, 95126950, 22419491, 6186511 ####[address] [place] [address] Eosinophils/100 WBC (Bld) 1 % Normal 0-5 [facility] Comment on above: Performed By: #### 1 3125212, 284843886, 8088295, 4632709, 07007136, 5136278, 8384037, 2578862, 3465731, 1623136, 8600453, 2329612, 17217365, 85791232, 6941507 ####[facility] [address] [place] [address] Lymphocytes/100 WBC (Bld) 18 % Normal 14-48 [facility] Comment on above: Performed By: #### 1 2258421, 780628006, 9871356, 7816559, 62025498, 2136488, 9527642, 1583552, 4822484, 1864580, 2495381, 8611604, 68263944, 35758549, 4278350 ####[facility] [address] [place] [address] Macrocyte PRESENT Invalid Interpretation Code [facility] Comment on above: Performed By: #### 1 1879011, 582516537, 3094278, 4057098, 52974464, 5558608, 5101886, 1645698, 0517603, 3629634, 7973989, 8330596, 17657636, 08002035, 4897188 ####[facility] [address] [place] [address] Monocytes/100 WBC (Bld) 8 % Normal 1-11 [facility] Comment on above: Performed By: #### 1 6885128, 789903177, 0011017, 1329457, 43676979, 8774086, 0681725, 3620323, 1988712, 1690230, 3264715, 4777616, 78507069, 70093997, 8291328 ####[facility] [address] [place] [address] RBC morphology finding Nom (Bld) SEE MORPHOLOGY Invalid Interpretation Code [facility] Comment on above: Performed By: #### 1 5299084, 244947401, 1470460, 8742336, 48123612, 2032262, 8185711, 3912527, 3130868, 5825382, 7300864, 2162246, 93892210, 70108670, 7800660 ####[facility] [address] [place] [address] Segs Man 69 % Normal 50-70 [facility] Comment on above: Performed By: #### 1 5343125, 202472017, 0609945, 8065503, 49821261, 7538876, 5720035, 5300174, 0027366, 6503844, 2427346, 3646023, 90589605, 75930059, 4346341 ####[facility] [address] [place] [address] Basophil Absolute 0.1 E9/L Normal 0.0-0.2 [facility] Comment on above: Performed By: #### 1 6660062, 468002577, 9999724, 8365953, 03445989, 6734066, 5350458, 4008347, 5810354, 1188920, 4205635, 2288356, 34496688, 31960335, 5369442 ####[facility] [address] [place] [address] Basophils/100 WBC (Bld) 0.9 % Normal 0.0-2.0 [facility] Comment on above: Performed By: #### 1 3086099, 285585201, 8036294, 6602505, 02489707, 7075573, 2953182, 1119920, 7468457, 7856382, 2538203, 2559810, 56542084, 51021050, 0039612 ####[facility] [address] [place] [address] Eos Absolute 0.2 E9/L Normal 0.0-0.5 [facility] Comment on above: Performed By: #### 1 0356061, 438275348, 4763128, 9408955, 69849358, 6202400, 7041615, 9003822, 3227287, 5122535, 1135705, 5388642, 49449403, 63492024, 0211539 ####[facility] [address] [place] [address] Eosinophils/100 WBC (Bld) 3.2 % Normal 0.0-8.0 [facility] Comment on above: Performed By: #### 1 2776203, 030688580, 6611248, 4484478, 30195774, 4950860, 7916716, 8605551, 9962303, 5461378, 7774056, 4924370, 18108613, 46225002, 7050501 ####[facility] [address] [place] [address] Erythrocyte distribution width (RBC) [Ratio] 16.7 % High 10.9-14.2 [facility] Comment on above: Performed By: #### 1 3304339, 889770079, 3692476, 4305605, 98936872, 1378822, 0706883, 0655930, 6193133, 1380598, 1618787, 0485549, 65416195, 37069883, 7041168 ####[facility] [address] [place] [address] Hematocrit (Bld) [Volume fraction] 39.0 % Normal 37.7-49.0 [facility] Comment on above: Performed By: #### 1 8485417, 948337747, 1437225, 7537753, 77966363, 8890687, 8922227, 8649574, 2129857, 5781583, 2273339, 0432760, 96826417, 12568866, 2773214 ####[facility] [address] [place] [address] Hemoglobin (Bld) [Mass/Vol] 12.8 g/dL Low 13.5-17.5 [facility] Comment on above: Performed By: #### 1 7738333, 139207515, 9236843, 1033272, 56737428, 7658874, 8360032, 0057790, 3431722, 0547168, 8938497, 3260411, 79139018, 81601120, 9376764 ####[facility] [address] [place] [address] Lymph Absolute 1.0 E9/L Normal 1.0-4.0 [facility] Comment on above: Performed By: #### 1 7900883, 430324650, 4798641, 3631228, 40057784, 3670207, 2028032, 3771268, 6812656, 6090837, 0554252, 5773842, 53312570, 29177923, 8874501 ####[facility] [address] [place] [address] Lymphocytes/100 WBC (Bld) 14.5 % Normal 14.0-50.0 [facility] Comment on above: Performed By: #### 1 8141835, 371226497, 7223375, 7185552, 56367611, 1546674, 8369478, 4051490, 8825803, 5725269, 5473192, 6194118, 63110429, 31301944, 5870158 ####[facility] [address] [place] [address] MCH (RBC) [Entitic mass] 35.2 pg High 27.0-34.0 [facility] Comment on above: Performed By: #### 1 6326236, 483837011, 8690617, 3078785, 73559261, 5575971, 6650442, 9153282, 0253285, 4645257, 2625518, 5975583, 68255976, 24580543, 3232358 ####[facility] [address] [place] [address] MCHC (RBC) [Mass/Vol] 33.0 g/dL Normal 31.4-36.0 [facility] Comment on above: Performed By: #### 1 5642703, 663350816, 7417207, 5635939, 12310150, 2382792, 2765183, 0131843, 4626484, 9821656, 3978332, 2158951, 79190409, 34825886, 4288341 ####[facility] [address] [place] [address] MCV (RBC) [Entitic vol] 106.9 fL High 80.0-100.0 [facility] Comment on above: Performed By: #### 1 4531951, 830840623, 1509247, 8774155, 52911738, 3222171, 1013080, 8292471, 8991937, 0056019, 3664015, 6844232, 87755287, 94960527, 7183664 ####[facility] [address] [place] [address] Crook Absolute 0.6 E9/L Normal 0.2-1.0 [facility] Comment on above: Performed By: #### 1 7471983, 544598730, 7519544, 6002671, 68146802, 2438988, 9131042, 1925527, 7254355, 7226962, 8965279, 8512931, 66128271, 75105082, 1625091 ####[address] [address] Monocytes/100 WBC (Bld) 8.8 % Normal 4.0-14.0 [facility] Comment on above: Performed By: #### 1 5584108, 191862640, 6000284, 7696619, 85301189, 1830985, 3847532, 0263729, 0548669, 8213955, 9037692, 6198699, 13602698, 03927236, 0487110 ####[address] [address] Neutro Absolute 5.0 E9/L Normal 2.0-7.[address] [facility] Comment on above: Performed By: #### 1 4731329, 769490615, 3068059, 7292491, 44387158, 0969194, 6197219, 1541221, 3266480, 5779035, 6258966, 4264378, 02471191, 96784906, 0357396 ####[address] [place] [address] Neutro Auto 72.6 % Normal 36.0-75.0 [facility] Comment on above: Performed By: #### 1 7061510, 110728103, 5176194, 8584167, 08404543, 4565173, 5585732, 6073302, 2274784, 2242627, 5780260, 8377725, 65001218, 90701032, 5066568 ####[facility] [address] [place] [address] Platelet 336.0 E9/L Normal 150.0-500.0 [facility] Comment on above: Performed By: #### 1 2501930, 686837045, 2828082, 9453984, 88609993, 6436887, 6673124, 6106982, 5883644, 9499767, 3161306, 2414388, 21228087, 05811981, 5747603 ####[facility] [address] [place] [address] Platelet mean volume (Bld) [Entitic vol] 7.5 fL Normal 6.4-10.8 [facility] Comment on above: Performed By: #### 1 1729077, 419867323, 4701197, 9541350, 76567385, 4255087, 3277875, 6890734, 1449032, 4922222, 6738290, 0795183, 00067643, 58406281, 7721373 ####[address] [place] [address] RBC 3.6 E12/L Low 4.3-5.9 [facility] Comment on above: Performed By: #### 1 6627227, 937440226, 1562565, 9861042, 04890081, 0321844, 3065374, 8006421, 6898126, 8718871, 3101678, 1053779, 05273830, 96919248, 3104168 ####[address] [place] [address] WBC 6.9 E9/L Normal 4.0-11.0 [facility] Comment on above: Performed By: #### 1 7889552, 685252318, 8951091, 7951162, 57641582, 3338225, 7171635, 2720832, 1163999, 4220560, 2855275, 2164981, 72888237, 28372497, 6184546 ####[facility] [address] [place] [id number] CHEMISTRYOrdered By: SYSTEM SYSTEM on 09-24-2023 Albumin [Mass/Vol] 4.3 g/dL Normal 3.3 - 5.0 gm/dL R emisol Chem Albumin/Globulin [Mass ratio] 1.6 {ratio} Normal 1.1 - 2.2 Remisol Chem Alk Phos 54 [iU]/d Normal 21 - 98 Int._Unit/L Remisol Chem ALT 17 [iU]/d Normal 6 - 46 Int._Unit/L Remiso l Chem Anion gap [Moles/Vol] 12 mmol/L Normal 6 - 16 mEq/L Remisol Chem AST 13 [iU]/d Normal 5 - 43 Int._Unit/L Remiso l Chem Bili Total 0.4 mg/dL Normal 0.0 - 1.1 mg/dL Remisol C hem Calcium [Mass/Vol] 9.5 mg/dL Normal 8.9 - 11.1 mg/dL Remisol Chem Chloride [Moles/Vol] 111 mmol/L Normal 101 - 111 mmol/ L Remisol Chem CO2 [Moles/Vol] 26 mmol/L Normal 21 - 31 mmol/L Remis ol Chem Cobalamin (Vitamin B12) [Mass/Vol] 991 pg/mL Normal 50 - 1500 pg/mL Remisol Chem Creatinine [Mass/Vol] 1.9 mg/dL High 0.5 - 1.3 mg/dL Remisol Chem eGFR 38 mL/min/1.73 m2 Low >=59mL/min/1.73 m2 Remisol Chem Ferritin Lvl 225 ng/mL Normal 24 - 336 ng/mL Remisol Chem Folate Lvl 12.4 ng/mL Normal >=6.7ng/mL Remisol Chem Globulin (S) [Mass/Vol] 2.7 g/dL Normal 1.4 - 4.0 gm/dL Remisol Chem Glucose [Mass/Vol] 121 mg/dL Normal 55 - 199 mg/dL Re misol Chem Iron [Mass/Vol] 104 ug/dL Normal 35 - 153 mcg/dL Matt debbie Chem Iron Sat 32 % Normal 20 - 50 % Remisol Chem LDH 142 [iU]/d Normal 93 - 218 Int._Unit/L Remisol Chem Potassium [Moles/Vol] 4.9 mmol/L Normal 3.5 - 5.3 mmol/L Remisol Chem Protein [Mass/Vol] 7.0 g/dL Normal 6.0 - 7.8 gm/dL R emisol Chem Sodium [Moles/Vol] 144 mmol/L Normal 135 [...] BUN/Creat Ratio 21 No Units High 10-20 [facility] Comment on above: Performed By: #### 1 [id number], 432131166, 7356368, 2284422, 91986452, 5133293, 7846359, 5908491, 2954786, 4020009, 8742875, 4230326, 57435421, 96210039, 7952555 ####[facility] [address] [place] [address] Urea nitrogen [Mass/Vol] 40 mg/dL High 5-21 [facility] Comment on above: Performed By: #### 1 4288122, 150349203, 0408955, 3716643, 04706099, 5523234, 1533327, 4842295, 8174749, 0309873, 9305872, 6181655, 41271728, 37315841, 3683787 ####[facility] [address] [place] [address] Albumin [Mass/Vol] 4.3 g/dL Normal 3.3-5.0 [facility] Comment on above: Performed By: #### 1 4086030, 665995453, 6091321, 8827418, 88004322, 6110679, 5762758, 1963984, 0307935, 8920551, 5042285, 7018668, 21756682, 87818566, 8878882 ####[facility] [address] [place] [address] Albumin/Globulin [Mass ratio] 1.6 {ratio} Normal 1.1-2.2 [facility] Comment on above: Performed By: #### 1 3211655, 493197597, 6120281, 6842828, 50024931, 8311317, 5010588, 6850982, 6679715, 1776733, 2943013, 0551310, 06238241, 96771819, 9229484 ####[facility] [address] [place] [address] Alk Phos 54 Int._Unit/L Normal 21-98 [facility] Comment on above: Performed By: #### 1 5586984, 708759757, 4962224, 9562318, 51837223, 5577314, 1771791, 5487391, 9604601, 5963859, 6396378, 0042899, 67079005, 64317585, 0270991 ####[facility] [address] [place] [address] ALT 17 Int._Unit/L Normal 6-46 [facility] Comment on above: Performed By: #### 1 6588476, 825582067, 4184505, 1813503, 70263708, 8875828, 9914591, 0746361, 3836151, 5830961, 6320220, 8120684, 14900249, 14784930, 1814244 ####[address] [place] [address] Anion gap [Moles/Vol] 12 mmol/L Normal 6-16 [facility] Comment on above: Performed By: #### 1 1009269, 708471747, 2128315, 2908635, 97209664, 7264787, 7196882, 9485778, 6204748, 4375527, 5305553, 3742754, 68779871, 09079354, 1507419 ####[facility] [address] [place] [address] AST 13 Int._Unit/L Normal 5-43 [facility] Comment on above: Performed By: #### 1 0988630, 338472973, 1943191, 5078812, 32715840, 1095659, 2305961, 1163532, 5200775, 6892014, 8048812, 1926640, 68107738, 06821236, 8270919 ####[facility] [address] [place] [address] Bili Total 0.4 mg/dL Normal 0.0-1.1 [facility] Comment on above: Performed By: #### 1 4535417, 622153104, 8902760, 1084629, 18917159, 6421137, 7778830, 7420910, 0703058, 0864536, 7717331, 7946626, 15720444, 33954648, 3166876 ####[facility] [address] [place] [address] Calcium [Mass/Vol] 9.5 mg/dL Normal 8.9-11.1 [facility] Comment on above: Performed By: #### 1 6686626, 806068525, 9895993, 1103750, 53830377, 9785543, 4837542, 8928013, 8786320, 6396577, 9911081, 4361069, 10026702, 59989240, 3610939 ####[facility] [address] [place] [address] Chloride [Moles/Vol] 111 mmol/L Normal 101-[address] [facility] Comment on above: Performed By: #### 1 7948708, 214010207, 4771722, 5913744, 29225409, 2520745, 7724582, 3189923, 6670206, 0889580, 2200555, 3380414, 61602640, 31712638, 4915460 ####[facility] [address] [place] [address] CO2 [Moles/Vol] 26 mmol/L Normal 21-[address] [facility] Comment on above: Performed By: #### 1 3171776, 153494956, 3070995, 6512389, 75003647, 4448382, 5112560, 3942435, 7591451, 5331147, 5598796, 2709217, 87501939, 80403868, 6077917 ####[facility] [address] [place] [address] Creatinine [Mass/Vol] 1.9 mg/dL High 0.5-1.3 [facility] Comment on above: Performed By: #### 1 0750110, 915413122, 2081388, 5266109, 71351663, 4028546, 1891065, 9037051, 2540972, 3862586, 8771233, 1108268, 95589823, 59117241, 8555313 ####[facility] [address] [place] [address] Globulin (S) [Mass/Vol] 2.7 g/dL Normal 1.4-4.0 [facility] Comment on above: Performed By: #### 1 0123556, 956897163, 0607285, 7363045, 79050812, 9245682, 8152161, 7600862, 5177259, 1073356, 9500538, 4498351, 71030347, 90533909, 9901142 ####[facility] [address] [place] [address] Glucose [Mass/Vol] 121 mg/dL Normal 55-199 [facility] Comment on above: Performed By: #### 1 1926896, 596172858, 4196517, 6145214, 17055515, 7377966, 0683962, 9126147, 6462495, 5549043, 3639633, 3000945, 44522485, 26345752, 4294740 ####[facility] [address] [place] [address] Potassium [Moles/Vol] 4.9 mmol/L Normal 3.5-5.3 [facility] Comment on above: Performed By: #### 1 9509298, 735016237, 7567091, 7025862, 86621567, 6576475, 0986145, 1696374, 8028744, 2899298, 1491568, 4078802, 83531334, 50656193, 3013697 ####[facility] [address] [place] [address] Protein [Mass/Vol] 7.0 g/dL Normal 6.0-7.8 [facility] Comment on above: Performed By: #### 1 5826475, 714927835, 6242699, 6870474, 25411234, 4583245, 8786960, 7144714, 2032626, 8091114, 9605495, 0452586, 60783311, 58516438, 8339422 ####[address] [place] [address] Sodium [Moles/Vol] 144 mmol/L Normal 135-145 [facility] Comment on above: Performed By: #### 1 0835160, 128254408, 5221102, 3917381, 54299480, 4327036, 9582723, 0741579, 4355847, 6923276, 1796530, 5302750, 34481391, 76727517, 2426226 ####[address] [place] [address] Consent for Treatmenton 08-30 Consent for Treatment [id number] #[id number] Normal [facility] Ferritinon 09-24-2023 Ferritin Lvl 225 ng/mL Normal 24-336 [facility] Comment on above: Performed By: #### 1 5440853, 920110888, 4743860, 8859249, 53904467, 1856861, 9554101, 8832233, 8356881, 4236474, 5592682, 5143687, 19663536, 68027938, 5867414 ####[facility] [address] [place] [address] Folateon 09-24-2023 Folate Lvl 12.4 ng/mL Normal >=6.7 [facility] Comment on above: Performed By: #### 1 0143117, 985895904, 5902138, 8757321, 59153147, 7083690, 6166464, 3476422, 2288632, 7359799, 7058326, 8517207, 32752829, 38201389, 3221660 ####[facility] [address] [place] [address] HEMATOLOGYOrdered By: SYSTEM SYSTEM on 09-24-2023 Basophil Absolute 0.1 E9/L Normal 0.0 - 0.2 E9/L Rem isol Heme Basophils/100 WBC (Bld) 0.9 % Normal [...] 1.0 E9/L Normal 1.0 - 4.0 E9/L Remiso l Heme Lymphocytes/100 WBC (Bld) 14.5 % Normal 14.0 - 50.0 % Remisol Heme MCH (RBC) [Entitic mass] 35.2 pg High 27.0 - 34.0 pg Remisol Heme MCHC (RBC) [Mass/Vol] 33.0 g/dL Normal 31.4 - 36.0 gm/dL Remisol Heme MCV (RBC) [Entitic vol] 106.9 fL High 80.0 - 100.0 fL Remisol Heme Crook Absolute 0.6 E9/L Normal 0.2 - 1.0 E9/L Remisol Heme Monocytes/100 WBC (Bld) 8.8 % Normal 4.0 - 14.0 % Remisol Heme Neutro Absolute 5.0 E9/L Normal 2.0 - 7.5 E9/L Remis ol Heme Neutro Auto 72.6 % Normal 36.0 - 75.0 % Remisol He me Platelet 336.0 E9/L Normal 150.0 - 500.0 E9/L Remiso l Heme Platelet mean volume (Bld) [Entitic vol] 7.5 fL Normal 6.4 - 10.8 fL Remisol Heme RBC 3.6 E12/L Low 4.3 - 5.9 E12/L Remisol H su Reticulocyte 2.5 % High 0.5 - 2.2 % Remisol Hem e WBC 6.9 E9/L Normal 4.0 - 11.0 E9/L Remisol H su HEMATOLOGYOrdered By: Lavern Pedro on 09-24-2023 Anisocytosis [...] Ironon 09-24-2023 Iron 104 microgram/dL Normal 35-153 [facility] Comment on above: Performed By: #### 1 1783850, 070745577, 6319796, 9593752, 43131758, 8547272, 5194362, 0012376, 6751415, 6346901, 8983073, 6566309, 97232190, 15979011, 9750859 ####[address] [place] [address] Iron Saturationon 09-24-2023 Iron Sat 32 % Normal 20-50 [facility] Comment on above: Performed By: #### 1 0200014, 870884091, 1562529, 3538672, 26209591, 8955244, 8767072, 8729057, 2771996, 6114381, 9758903, 8371767, 23030667, 48678133, 6292327 ####[facility] [address] [place] [address] TIBC 321 microgram/dL Normal 250-400 [facility] Comment on above: Performed By: #### 1 7640635, 941381734, 4719266, 2019136, 62473064, 1558273, 8450827, 3440797, 2592102, 4661282, 1594542, 9024811, 11645623, 88771096, 4342820 ####[facility] [address] [place] [address] LDHon 09-24-2023 LDH 142 Int._Unit/L Normal 93-[address] [facility] Comment on above: Performed By: #### 1 5051101, 286596145, 2637046, 3437889, 26484471, 9200525, 1055148, 4543443, 9989712, 3679765, 1121163, 0076927, 56479933, 41869887, 7958865 ####[facility] [address] [place] [address] Retic Counton 09-24-2023 Reticulocyte 2.5 % High .5-2.2 [facility] Comment on above: Performed By: #### 1 4724093, 638933758, 5900332, 3835913, 28180353, 8258413, 0400437, 2486104, 6785271, 6497384, 9827154, 8115156, 26088110, 16553492, 8310639 ####[facility] [address] [place] [address] Transferrinon 09-24-2023 Transferrin [Mass/Vol] 229 mg/dL Normal 200-370 [facility] Comment on above: Performed By: #### 1 7898050, 866562637, 4507577, 1037676, 03470146, 4554394, 4690854, 9653710, 9433904, 1816069, 8202684, 4721169, 75951398, 85004706, 3574615 ####[facility] [address] [place] [address] Vit B12on 09-24-2023 Cobalamin (Vitamin B12) [Mass/Vol] 991 pg/mL Normal 50-1500 [facility] Comment on above: Performed By: #### 1 1959978, 701869041, 5701534, 0256892, 10223208, 1234167, 4797854, 3679820, 8073433, 6614570, 8321590, 1233406, 01377724, 06321169, 0007489 ####[facility] [address] [place] [address] eGFRon 09-24-2023 eGFR 38 mL/min/1.73 m2 Low >=59 [facility] Comment on above: Order Comment: Order added by Discern Expert. Performed By: #### 1 2457389, 297690898, 0802923, 8620959, 92510249, 5843719, 2237455, 0343690, 2126391, 0159714, 7828838, 6708182, 07331229, 97570242, 3538391 ####[facility] [address] [place] [address] CHEMISTRYOrdered By: SYSTEM SYSTEM on 03-08-2023 Cobalamin (Vitamin B12) [Mass/Vol] 236 pg/mL Normal 50 - 1500 pg/mL [facility] Remisol Ferritin [Mass/Vol] 232 ng/mL Normal 24 - 336 ng/mL [facility] Remisol Folate [Mass/Vol] ng/mL Normal >=6.7ng/mL [facility] Re misol Iron [Mass/Vol] 59 ug/dL Normal 35 - 153 mcg/dL [facility] Remisol Iron binding capacity [Mass/Vol] 320 ug/dL Normal 250 - 400 mcg/dL [facility] Remiso l Iron saturation [Mass fraction] 18 % Low 20 - 50 % [facility] Remisol LDH [Catalytic activity/Vol] 157 [iU]/d Normal 93 - 218 Int._Unit/L [facility] Remisol Transferrin [Mass/Vol] 229 mg/dL Normal 200 - 370 mg/dL [facility] Remisol CBC W Auto Differential pane l (Bld)on 11-11-2021 Basophils/100 WBC (Bld) 2.0 % Normal [facility] Comment on above: Order Comment: Speci men Type: BLOOD SPECIMEN Ordering Facility: [facility] Address: [address] [place] [address] Performed By: #### 5 7021-8 #### [facility] CLIA [id number] [address] [place] [address] LAB CLIA [id number] [address] [place] [address] [place] Differential cell count method Nom (Bld) Manual Normal [facility] Comment on above: Order Comment: Speci men Type: BLOOD SPECIMEN Ordering Facility: [facility] Address: [address] [place] [address] Performed By: #### 5 7021-8 #### [facility] CLIA [id number] [address] [place] [address] LAB CLIA [id number] [address] [place] [address] [place] Eosinophils (Bld) [#/Vol] 0.00 10*3/uL Normal <0.46 [facility] Comment on above: Order Comment: Speci men Type: BLOOD SPECIMEN Ordering Facility: [facility] Address: [address] [place] [address] Performed By: #### 5 7021-8 #### [facility] CLIA [id number] [address] [place] [address] LAB CLIA [id number] [address] [place] [address] [place] Eosinophils/100 WBC (Bld) 0.0 % Normal [facility] Comment on above: Order Comment: Speci men Type: BLOOD SPECIMEN Ordering Facility: [facility] Address: [address] [place] [address] Performed By: #### 5 7021-8 #### [facility] CLIA [id number] [address] [place] [address] LAB CLIA [id number] [address] [place] [address] [place] Erythrocyte distribution width (RBC) [Ratio] 14.5 % Normal 11.5-15.0 [facility] Comment on above: Order Comment: Speci men Type: BLOOD SPECIMEN Ordering Facility: [facility] Address: [address] [place] [address] Performed By: #### 5 7021-8 #### [facility] CLIA [id number] [address] [place] [address] LAB CLIA [id number] [address] [place] [address] [place] Hematocrit (Bld) [Volume fraction] 36.2 % Low 39.0-51.0 [facility] Comment on above: Order Comment: Speci men Type: BLOOD SPECIMEN Ordering Facility: [facility] Address: [address] [place] [address] Performed By: #### 5 7021-8 #### [facility] CLIA [id number] [address] [place] [address] LAB CLIA [id number] [address] [place] [address] [place] Hemoglobin (Bld) [Mass/Vol] 12.0 g/dL Low 13.0-17.0 [facility] Comment on above: Order Comment: Speci men Type: BLOOD SPECIMEN Ordering Facility: [facility] Address: [address] [place] [address] Performed By: #### 5 7021-8 #### [facility] CLIA [id number] [address] [place] [address] LAB CLIA [id number] [address] [place] [address] [place] Lymphocytes (Bld) [#/Vol] 1.54 10*3/uL Normal 1.00-4.00 [facility] Comment on above: Order Comment: Speci men Type: BLOOD SPECIMEN Ordering Facility: [facility] Address: [address] [place] [address] Performed By: #### 5 7021-8 #### [facility] CLIA [id number] [address] [place] [address] LAB CLIA [id number] [address] [place] [address] [place] Lymphocytes/100 WBC (Bld) 10.0 % Normal [facility] Comment on above: Order Comment: Speci men Type: BLOOD SPECIMEN Ordering Facility: [facility] Address: [address] [place] [address] Performed By: #### 5 7021-8 #### [facility] CLIA [id number] [address] [place] [address] LAB CLIA [id number] [address] [place] [address] [place] MCH (RBC) [Entitic mass] 34.8 pg High 26.0-34.0 [facility] Comment on above: Order Comment: Speci men Type: BLOOD SPECIMEN Ordering Facility: [facility] Address: [address] [place], [place] [address] Performed By: #### 5 7021-8 #### [facility] CLIA [id number] [address] [place] [address] LAB CLIA [id number] [address] [place] [address] [place] MCHC (RBC) [Mass/Vol] 33.1 g/dL Normal 30.5-36.0 [facility] Comment on above: Order Comment: Speci men Type: BLOOD SPECIMEN Ordering Facility: [facility] Address: [address] [place] [address] Performed By: #### 5 7021-8 #### [facility] CLIA [id number] [address] [place] [address] LAB CLIA [id number] [address] [place] [address] [place] MCV (RBC) [Entitic vol] 104.9 fL High 80.0-100.0 [facility] Comment on above: Order Comment: Speci men Type: BLOOD SPECIMEN Ordering Facility: [facility] Address: [address] [place] [address] Performed By: #### 5 7021-8 #### [facility] CLIA [id number] [address] [place] [address] LAB CLIA [id number] [address] [place] [address] [place] MYELO% 1.0 % Normal [facility] Comment on above: Order Comment: Speci men Type: BLOOD SPECIMEN Ordering Facility: [facility] Address: [address] [place] [address] Performed By: #### 5 7021-8 #### [facility] CLIA [id number] [address] [place] [address] LAB CLIA [id number] [address] [place] [address] [place] Neutrophils (Bld) [#/Vol] 12.49 10*3/uL High 1.45-7.50 [facility] Comment on above: Order Comment: Speci men Type: BLOOD SPECIMEN Ordering Facility: [facility] Address: [address] [place] [address] Performed By: #### 5 7021-8 #### [facility] CLIA [id number] [address] [place] [address] [facility] CLIA [id number] [address] [place], [place] [address] [place] Neutrophils/100 WBC (Bld) 81.0 % Normal [facility] Comment on above: Order Comment: Speci men Type: BLOOD SPECIMEN Ordering Facility: [facility] Address: [address] [place] [address] Performed By: #### 5 7021-8 #### [facility] CLIA [id number] [address] [place], [place] [address] [facility] CLIA [id number] [address] [place] [address] [place] Nucleated RBC/100 WBC (Bld) [Ratio] 0.0 /100 WBC Normal [facility] Comment on above: Order Comment: Speci men Type: BLOOD SPECIMEN Ordering Facility: [facility] Address: [address] [place] [address] Performed By: #### 5 7021-8 #### [facility] CLIA [id number] [address] [place] [address] LAB CLIA [id number] [address] [place] [address] [place] Ovalocytes LM Ql (Bld) Few Normal [facility] Comment on above: Order Comment: Speci men Type: BLOOD SPECIMEN Ordering Facility: [facility] Address: [address] [place] [address] Performed By: #### 5 7021-8 #### [facility] CLIA [id number] [address] [place], [place] [address] [facility] CLIA [id number] [address] [place], [place] [address] [place] PLATELET ESTIMATE Increased Normal [facility] Comment on above: Order Comment: Speci men Type: BLOOD SPECIMEN Ordering Facility: [facility] Address: [address] [place] [address] Performed By: #### 5 7021-8 #### [facility] CLIA [id number] [address] [place] [address] LAB CLIA [id number] [address] [place] [address] [place] Platelet mean volume (Bld) [Entitic vol] 9.3 fL Normal 9.0-12.7 [facility] Comment on above: Order Comment: Speci men Type: BLOOD SPECIMEN Ordering Facility: [facility] Address: [address] [place] [address] Performed By: #### 5 7021-8 #### [facility] CLIA [id number] [address] [place] [address] LAB CLIA [id number] [address] [place] [address] [place] Platelets (Bld) [#/Vol] 451 10*3/uL High 150-400 [facility] Comment on above: Order Comment: Speci men Type: BLOOD SPECIMEN Ordering Facility: [facility] Address: [address] [place] [address] Performed By: #### 5 7021-8 #### [facility] CLIA [id number] [address] [place] [address] LAB CLIA [id number] [address] [place] [address] [place] Polychromasia LM Ql (Bld) Slight Normal [facility] Comment on above: Order Comment: Speci men Type: BLOOD SPECIMEN Ordering Facility: [facility] Address: [address] [place] [address] Performed By: #### 5 7021-8 #### [facility] CLIA [id number] [address] [place] [address] LAB CLIA [id number] [address] [place] [address] [place] RBC (Bld) [#/Vol] 3.45 10*6/uL Low 4.20-6.00 [facility] Comment on above: Order Comment: Speci men Type: BLOOD SPECIMEN Ordering Facility: [facility] Address: [address] [place], [place] [address] Performed By: #### 5 7021-8 #### [facility] CLIA [id number] [address] [place] [address] LAB CLIA [id number] [address] [place] [address] [place] RED CELL MORPH Reviewed Normal [facility] Comment on above: Order Comment: Speci men Type: BLOOD SPECIMEN Ordering Facility: [facility] Address: [address] [place] [address] Performed By: #### 5 7021-8 #### [facility] CLIA [id number] [address] [place] [address] LAB CLIA [id number] [address] [place] [address] [place] WAM - ABS BASO 0.31 k/uL High <0.11 [facility] Comment on above: Order Comment: Speci men Type: BLOOD SPECIMEN Ordering Facility: [facility] Address: [address] [place] [address] Performed By: #### 5 7021-8 #### [facility] CLIA [id number] [address] [place] [address] LAB CLIA [id number] [address] [place] [address] [place] WAM - ABS MONO 0.93 k/uL High <0.87 [facility] Comment on above: Order Comment: Speci men Type: BLOOD SPECIMEN Ordering Facility: [facility] Address: [address] [place] [address] Performed By: #### 5 7021-8 #### [facility] CLIA [id number] [address] [place] [address] LAB CLIA [id number] [address] [place] [address] [place] WAM - MONO% 6.0 % Normal [facility] Comment on above: Order Comment: Speci men Type: BLOOD SPECIMEN Ordering Facility: [facility] Address: [address] [place] [address] Performed By: #### 5 7021-8 #### [facility] CLIA [id number] [address] [place] [address] LAB CLIA [id number] [address] [place] [address] [place] WAM ABSOLUTE NRBC <0.01 Normal <0.01 [facility] Comment on above: Order Comment: Speci men Type: BLOOD SPECIMEN Ordering Facility: [facility] Address: [address] [place] [address] Performed By: #### 5 7021-8 #### [facility] CLIA [id number] [address] [place] [address] LAB CLIA [id number] [address] [place] [address] [place] WBC (Bld) [#/Vol] 15.42 10*3/uL High 3.70-11.00 [facility] Comment on above: Order Comment: Speci men Type: BLOOD SPECIMEN Ordering Facility: [facility] Address: [address] [place] [address] Performed By: #### 5 7021-8 #### [facility] CLIA [id number] [address] [place] [address] LAB CLIA [id number] [address] [place] [address] [place] WBC Left Shift Ql (Bld) Present Normal [facility] Comment on above: Order Comment: Speci men Type: BLOOD SPECIMEN Ordering Facility: [facility] Address: [address] [place] [address] Performed By: #### 5 7021-8 #### [facility] CLIA [id number] [address] [place] [address] [facility] CLIA [id number] [address] [place], [place] [address] [facility] [place] CRP SerPl-mCncon 11-11-2021 CRP [Mass/Vol] 0.4 mg/dL Normal <0.9 [facility] Comment on above: Order Comment: Speci men Type: BLOOD SPECIMEN Ordering Facility: [facility] Address: [address] [place] [address] Performed By: #### 1 988-5 #### [facility] CLIA [id number] [address] [place] [address] [place] Comprehensive metabolic 2000 panelon 11-11-2021 Albumin [Mass/Vol] 4.4 g/dL Normal 3.9-4.9 [facility] Comment on above: Order Comment: Speci men Type: BLOOD SPECIMENOrdering Facility: [facility] Address: [address] [place] [address] Performed By: #### 2 4323-8 ####[facility] LABCLIA [id number] [place] [address] ALP [Catalytic activity/Vol] 53 U/L Normal 38-113 [facility] Comment on above: Order Comment: Speci men Type: BLOOD SPECIMENOrdering Facility: [facility] Address: [address] [place], [place] [address] Performed By: #### 2 4323-8 ####[facility] LABCLIA [id number] [place] [address] ALT [Catalytic activity/Vol] 34 U/L Normal 10-54 [facility] Comment on above: Order Comment: Speci men Type: BLOOD SPECIMENOrdering Facility: [facility] Address: [address] [place] [address] Performed By: #### 2 4323-8 ####[facility] LABCLIA [id number] [place] [address] Anion gap [Moles/Vol] 10 mmol/L Normal 9-18 [facility] Comment on above: Order Comment: Speci men Type: BLOOD SPECIMENOrdering Facility: [facility] Address: [address] [place] [address] Performed By: #### 2 4323-8 ####[facility] LABCLIA [id number] [place] [address] AST [Catalytic activity/Vol] 18 U/L Normal 14-40 [facility] Comment on above: Order Comment: Speci men Type: BLOOD SPECIMENOrdering Facility: [facility] Address: [address] [place] [address] Performed By: #### 2 4323-8 ####[facility] LABCLIA [id number] [place] [address] Bilirubin [Mass/Vol] 0.2 mg/dL Normal 0.2-1.3 [facility] Comment on above: Order Comment: Speci men Type: BLOOD SPECIMENOrdering Facility: [facility] Address: [address] [place] [address] Performed By: #### 2 4323-8 ####[facility] LABCLIA [id number] [place] [address] Calcium [Mass/Vol] 10.0 mg/dL Normal 8.5-10.2 [facility] Comment on above: Order Comment: Speci men Type: BLOOD SPECIMENOrdering Facility: [facility] Address: [address] [place] [address] Performed By: #### 2 4323-8 ####[facility] LABCLIA [id number] [place] [address] Chloride [Moles/Vol] 105 mmol/L Normal 97-105 [facility] Comment on above: Order Comment: Speci men Type: BLOOD SPECIMENOrdering Facility: [facility] Address: [address] [place] [address] Performed By: #### 2 4323-8 ####[facility] LABCLIA [id number] [place] [address] CO2 [Moles/Vol] 20 mmol/L Low 22-30 [facility] Comment on above: Order Comment: Speci men Type: BLOOD SPECIMENOrdering Facility: [facility] Address: [address] [place] [address] Performed By: #### 2 4323-8 ####[facility] LABCLIA [id number] [place] [address] Creatinine [Mass/Vol] 1.69 mg/dL High 0.73-1.22 [facility] Comment on above: Order Comment: Speci men Type: BLOOD SPECIMENOrdering Facility: [facility] Address: [address] [place] [address] Performed By: #### 2 4323-8 ####[facility] LABCLIA [id number] [place] [address] ESTIMATED GLOMERULAR FILTRATION RATE 44 mL/min/1.73m??? Low >=60 [facility] Comment on above: Order Comment: Speci men Type: BLOOD SPECIMENOrdering Facility: [facility] Address: [address] [place] [address] Result Comment: Sara mated Glomerular Filtration Rate [...] actual GFR. Performed By: #### 2 4323-8 ####[facility] LABCLIA [id number] [place] [address] Glucose [Mass/Vol] 249 mg/dL High 74-99 [facility] Comment on above: Order Comment: Speci men Type: BLOOD SPECIMENOrdering Facility: [facility] Address: [address] [place], [place] [address] Result Comment: [place] Diabetes Association (ADA) provides guidance for cutoff [...] Standards of Medical Care in Diabetes 2016, [place] Diabetes Association. Diabetes Care. 2016.39(Suppl 1). Performed By: #### 2 4323-8 ####[facility] LABCLIA [id number] [place] [address] Potassium [Moles/Vol] 5.3 mmol/L High 3.7-5.1 [facility] Comment on above: Order Comment: Speci men Type: BLOOD SPECIMENOrdering Facility: [facility] Address: [address] [place], [place] [address] Performed By: #### 2 4323-8 ####[facility] LABCLIA [id number] [place] [address] Protein [Mass/Vol] 7.4 g/dL Normal 6.3-8.0 [facility] Comment on above: Order Comment: Speci men Type: BLOOD SPECIMENOrdering Facility: [facility] Address: [address] [place] [address] Performed By: #### 2 4323-8 ####[facility] LABCLIA [id number] [place] [address] Sodium [Moles/Vol] 135 mmol/L Low 136-144 [facility] Comment on above: Order Comment: Speci men Type: BLOOD SPECIMENOrdering Facility: [facility] Address: [address] [place] [address] Performed By: #### 2 4323-8 ####[facility] LABCLIA [id number] [place] [address] Urea nitrogen [Mass/Vol] 57 mg/dL High 9-24 [facility] Comment on above: Order Comment: Speci men Type: BLOOD SPECIMENOrdering Facility: [facility] Address: [address] [place] [address] Performed By: #### 2 4323-8 ####[facility] LABCLIA [id number] [place] [address] ESR Westergren method (Bld) [Velocity]on 11-11-2021 ESR (Bld) [Velocity] 48 mm/h High 0-15 [facility] Comment on above: Order Comment: Speci men Type: BLOOD SPECIMENOrdering Facility: [facility] Address: [address] [place] [address] Performed By: #### 4 537-7 ####[facility] LABCLIA [id number] [address] [place] IMMUNOFIXATION SCREEN, SERUM on 11-11-2021 MPA RESULT No M protein is identified. Normal No M protein is identified. [facility] Comment on above: Order Comment: Speci men Type: BLOOD SPECIMEN Ordering Facility: [facility] Address: [address] [place], [place] [address] Performed By: #### 1 988-5 #### [facility] CLIA [id number] [address] [place], [place] [address] [address] [place] STAFF REVIEW (MPA) Reviewed by Ren Hooks MD, Ph.D ([id number]) Normal [facility] Comment on above: Order Comment: Speci men Type: BLOOD SPECIMEN Ordering Facility: [facility] Address: [address] [place] [address] Performed By: #### 1 988-5 #### [facility] CLIA [id number] [address] [place] [address] [place] IMMUNOGLOBULINS GAMon 2021 IgA [Mass/Vol] 285 mg/dL Normal 70-400 [facility] Comment on above: Order Comment: Speci men Type: BLOOD SPECIMEN Ordering Facility: [facility] Address: [address] [place], [place] [address] Performed By: #### 1 988-5 #### [facility] CLIA [id number] [address] [place] [address] [place] IgG [Mass/Vol] 1053 mg/dL Normal 700-1,600 [facility] Comment on above: Order Comment: Speci men Type: BLOOD SPECIMEN Ordering Facility: [facility] Address: [address] [place], [place] [address] Performed By: #### 1 988-5 #### [facility] CLIA [id number] [address] [place] [address] [place] IgM [Mass/Vol] 101 mg/dL Normal 40-230 [facility] Comment on above: Order Comment: Speci men Type: BLOOD SPECIMEN Ordering Facility: [facility] Address: [address] [place] [address] Performed By: #### 1 988-5 #### [facility] CLIA [id number] [address] [place] [address] [place] KAPPA/NEWMAN,FREE,SERon 2021 Immunoglobulin light chains.kappa.free (S) [Mass/Vol] 32.4 mg/L High 3.3-19.4 [facility] Comment on above: Order Comment: Speci men Type: BLOOD SPECIMENOrdering Facility: [facility] Address: [address] [place], [place] [address] Performed By: #### K LFRS ####[facility] LABCLIA [id number] [address] Immunoglobulin light chains.kappa/Immunog lobulin light chains.lambda (S) [Mass ratio] 1.05 Normal 0.26-1.65 [facility] Comment on above: Order Comment: Speci men Type: BLOOD SPECIMENOrdering Facility: [facility] Address: [address] [place], [place] [address] Performed By: #### K LFRS ####[facility] LABCLIA [id number] [place] [address] [place] Immunoglobulin light chains.lambda.free [Mass/Vol] 31.0 mg/L High 5.7-26.3 [facility] Comment on above: Order Comment: Speci men Type: BLOOD SPECIMENOrdering Facility: [facility] Address: [address] [place] [address] Performed By: #### K LFRS ####[facility] LABCLIA [id number] [place] [address] [place] Basic metabolic 2000 panelon 11-07-2021 Anion gap [Moles/Vol] 11 mmol/L Normal 9-18 [facility] Comment on above: Order Comment: Speci men Type: BLOOD SPECIMEN Ordering Facility: [facility] Address: [address] [place], [place] [address] Performed By: #### 1 988-5 #### [facility] CLIA [id number] [address] [place] [address] [place] Calcium [Mass/Vol] 9.5 mg/dL Normal 8.5-10.2 [facility] Comment on above: Order Comment: Speci men Type: BLOOD SPECIMEN Ordering Facility: [facility] Address: [address] [place], [place] [address] Performed By: #### 1 988-5 #### [facility] CLIA [id number] [address] [place] [address] [place] Chloride [Moles/Vol] 103 mmol/L Normal 97-105 [facility] Comment on above: Order Comment: Speci men Type: BLOOD SPECIMEN Ordering Facility: [facility] Address: [address] [place] [address] Performed By: #### 1 988-5 #### [facility] CLIA [id number] [address] [place] [address] [place] CO2 [Moles/Vol] 21 mmol/L Low 22-30 [facility] Comment on above: Order Comment: Speci men Type: BLOOD SPECIMEN Ordering Facility: [facility] Address: [address] [place] [address] Performed By: #### 1 988-5 #### [facility] CLIA [id number] [address] [place] [address] [place] Creatinine [Mass/Vol] 1.81 mg/dL High 0.73-1.22 [facility] Comment on above: Order Comment: Speci men Type: BLOOD SPECIMEN Ordering Facility: [facility] Address: [address] [place] [address] Performed By: #### 1 988-5 #### [facility] CLIA [id number] [address] [place] [address] [place] ESTIMATED GLOMERULAR FILTRATION RATE 41 mL/min/1.73m??? Low >=60 [facility] Comment on above: Order Comment: Speci men Type: BLOOD SPECIMEN Ordering Facility: [facility] Address: [address] [place] [address] Result Comment: Sara mated Glomerular Filtration Rate [...] GFR. Performed By: #### 1 988-5 #### [facility] CLIA [id number] [address] [place] [address] [place] Glucose [Mass/Vol] 179 mg/dL High 74-99 [facility] Comment on above: Order Comment: Misty avery Type: BLOOD SPECIMEN Ordering Facility: [facility] Address: [address] [place] [address] Result Comment: The [place] Diabetes Association (ADA) provides guidance for cutoff [...] Standards of Medical Care in Diabetes 2016, [place] Diabetes Association. Diabetes Care. 2016.39(Suppl 1). Performed By: #### 1 988-5 #### [facility] CLIA [id number] [address] [place] [address] [place] Potassium [Moles/Vol] 5.5 mmol/L High 3.7-5.1 [facility] Comment on above: Order Comment: Misty avery Type: BLOOD SPECIMEN Ordering Facility: [facility] Address: [address] [place], [place] [address] Performed By: #### 1 988-5 #### [facility] CLIA [id number] [address] [place] [address] [place] Sodium [Moles/Vol] 135 mmol/L Low 136-144 [facility] Comment on above: Order Comment: Misty avery Type: BLOOD SPECIMEN Ordering Facility: [facility] Address: [address] [place] [address] Performed By: #### 1 988-5 #### [facility] CLIA [id number] [address] [place] [address] [place] Urea nitrogen [Mass/Vol] 38 mg/dL High 9-24 [facility] Comment on above: Order Comment: Speci men Type: BLOOD SPECIMEN Ordering Facility: [facility] Address: [address] [place], [place] [address] Performed By: #### 1 988-5 #### [facility] CLIA [id number] [address] [place] [address] [place] CBC panel Auto (Bld)on 11-07 Erythrocyte distribution width (RBC) [Ratio] 13.9 % Normal 11.5-15.0 [facility] Comment on above: Order Comment: Speci men Type: BLOOD SPECIMENOrdering Facility: [facility] Address: [address] [place], [place] [address] Performed By: #### 5 8410-2 ####[facility] LABCLIA [id number] [place] [address] [place] Hematocrit (Bld) [Volume fraction] 33.1 % Low 39.0-51.0 [facility] Comment on above: Order Comment: Speci men Type: BLOOD SPECIMENOrdering Facility: [facility] Address: [address] [place], [place] [address] Performed By: #### 5 8410-2 ####[facility] LABCLIA [id number] [place] [address] [place] Hemoglobin (Bld) [Mass/Vol] 10.9 g/dL Low 13.0-17.0 [facility] Comment on above: Order Comment: Speci men Type: BLOOD SPECIMENOrdering Facility: [facility] Address: [address] [place], [place] [address] Performed By: #### 5 8410-2 ####[facility] [id number] [place] [address] [place] MCH (RBC) [Entitic mass] 35.3 pg High 26.0-34.0 [facility] Comment on above: Order Comment: Speci men Type: BLOOD SPECIMENOrdering Facility: [facility] Address: [address] [place] [address] Performed By: #### 5 8410-2 ####[facility] [id number] [place] [address] [place] MCHC (RBC) [Mass/Vol] 32.9 g/dL Normal 30.5-36.0 [facility] Comment on above: Order Comment: Speci men Type: BLOOD SPECIMENOrdering Facility: [facility] Address: [address] [place] [address] Performed By: #### 5 8410-2 ####[facility] [id number] [place] [address] [place] MCV (RBC) [Entitic vol] 107.1 fL High 80.0-100.0 [facility] Comment on above: Order Comment: Speci men Type: BLOOD SPECIMENOrdering Facility: [facility] Address: [address] [place], [place] [address] Performed By: #### 5 8410-2 ####[facility] [id number] [address] [place] Nucleated RBC (Bld) [#/Vol] 10*3/uL Normal <0.01 [facility] Comment on above: Order Comment: Speci men Type: BLOOD SPECIMENOrdering Facility: [facility] Address: [address] [place], [place] [address] Performed By: #### 5 8410-2 ####[facility] [id number] [address] [place] Platelet mean volume (Bld) [Entitic vol] 9.5 fL Normal 9.0-12.7 [facility] Comment on above: Order Comment: Speci men Type: BLOOD SPECIMENOrdering Facility: [facility] Address: [address] [place], [place] [address] Performed By: #### 5 8410-2 ####[facility] LABCLIA [id number] [place] [address] [place] Platelets (Bld) [#/Vol] 354 10*3/uL Normal 150-400 [facility] Comment on above: Order Comment: Speci men Type: BLOOD SPECIMENOrdering Facility: [facility] Address: [address] [place], [place] [address] Performed By: #### 5 8410-2 ####[facility] LABIA [id number] [place] [address] [place] RBC (Bld) [#/Vol] 3.09 10*6/uL Low 4.20-6.00 [facility] Comment on above: Order Comment: Speci men Type: BLOOD SPECIMENOrdering Facility: [facility] Address: [address] [place], [place] [address] Performed By: #### 5 8410-2 ####[facility] LABIA [id number] [place] [address] [place] WBC (Bld) [#/Vol] 5.89 10*3/uL Normal 3.70-11.00 [facility] Comment on above: Order Comment: Speci men Type: BLOOD SPECIMENOrdering Facility: [facility] Address: [address] [place], [place] [address] Performed By: #### 5 8410-2 ####[facility] LABCLIA [id number] [address] [place] CNDSon 11-07-2021 CNDS HNO ID: [id number] Author: Ida Lo MD Service: General Internal [...] of the summary. CONSULTING TEAMS DURING HOSPITALIZATION: Rheumatology:Dr.Buny gardner Urology: Treatment Team: Attending Provider: Ida Lo MD Primary Service: Gim 3 REASON FOR HOSPITALIZATION: Left groin pain [...] cancer, left adrenal nodule, nicotine dependence, bilateral hydroceles,?presente d?to ER?with left groin pain?that started all of [...] PT and OT. -?US?scrotum?showed findings suggestive of right?epididimitis.? CRP 14.2, ESR 117. No leukocytosis. Negative [...] not show (more content not included)... Normal [facility] CONSULT PROGon 11-07-2021 CONSULT PROG HNO ID: [id number] Author: Quinton Bhatt MD Service: Rheumatology Author [...] Comments - Simvastatin Other: See Comments Current Facility-Administere d Medications Medication Dose Route Frequency - sodium [...] the exiting (more content not included)... Normal [facility] CRP SerPl-mCncon 11-07-2021 CRP [Mass/Vol] 4.6 mg/dL High <0.9 [facility] Comment on above: Order Comment: Speci men Type: BLOOD SPECIMEN Ordering Facility: [facility] Address: [address] [place] [address] Performed By: #### 1 988-5 #### [facility] CLIA [id number] [address] [place] [address] [place] ALLIED HEALTHon 11-06-2021 ALLIED HEALTH HNO ID: [id number] Author: RT Krista(R) Service: Radiology Author Type: [...] DATA: Inpatient: see LDA documentation SIGNED BY: RT Krista(R) November 05, 2021 10:26 PM Normal [facility] Basic metabolic 2000 panelon 11-06-2021 Anion gap [Moles/Vol] 12 mmol/L Normal 9-18 [facility] Comment on above: Order Comment: Speci men Type: BLOOD SPECIMEN Ordering Facility: [facility] Address: [address] [place] [id number] Performed By: #### 1 988-5 #### [facility] CLIA [id number] [address] [place] [address] [place] Calcium [Mass/Vol] 8.8 mg/dL Normal 8.5-10.2 [facility] Comment on above: Order Comment: Speci men Type: BLOOD SPECIMEN Ordering Facility: [facility] Address: [address] [place] [phone] Performed By: #### 1 988-5 #### [facility] CLIA [id number] [address] [place] [address] [place] Chloride [Moles/Vol] 105 mmol/L Normal 97-105 [facility] Comment on above: Order Comment: Speci men Type: BLOOD SPECIMEN Ordering Facility: [facility] Address: [address] [place] [address] Performed By: #### 1 988-5 #### [facility] CLIA [id number] [address] [place] [address] [place] CO2 [Moles/Vol] 23 mmol/L Normal 22-30 [facility] Comment on above: Order Comment: Speci men Type: BLOOD SPECIMEN Ordering Facility: [facility] Address: [address] [place] [address] Performed By: #### 1 988-5 #### [facility] CLIA [id number] [address] [place] [address] [place] Creatinine [Mass/Vol] 2.03 mg/dL High 0.73-1.22 [facility] Comment on above: Order Comment: Speci men Type: BLOOD SPECIMEN Ordering Facility: [facility] Address: [address] [place] [address] Performed By: #### 1 988-5 #### [facility] CLIA [id number] [address] [place] [address] [place] ESTIMATED GLOMERULAR FILTRATION RATE 36 mL/min/1.73m??? Low >=60 [facility] Comment on above: Order Comment: Speci men Type: BLOOD SPECIMEN Ordering Facility: [facility] Address: [address] [place] [address] Result Comment: Sara mated Glomerular Filtration Rate [...] GFR. Performed By: #### 1 988-5 #### [facility] CLIA [id number] [address] [place] [address] [place] Glucose [Mass/Vol] 114 mg/dL High 74-99 [facility] Comment on above: Order Comment: Misty avery Type: BLOOD SPECIMEN Ordering Facility: [facility] Address: [address] [place], [place] [id number] Result Comment: The [place] Diabetes Association (ADA) provides guidance for cutoff [...] Standards of Medical Care in Diabetes 2016, [place] Diabetes Association. Diabetes Care. 2016.39(Suppl 1). Performed By: #### 1 988-5 #### [facility] CLIA [id number] [address] [place] [address] [place] Potassium [Moles/Vol] 5.2 mmol/L High 3.7-5.1 [facility] Comment on above: Order Comment: Misty avery Type: BLOOD SPECIMEN Ordering Facility: [facility] Address: [address] [place] [phone] Performed By: #### 1 988-5 #### [facility] CLIA [id number] [address] [place] [address] [place] Sodium [Moles/Vol] 140 mmol/L Normal 136-144 [facility] Comment on above: Order Comment: Misty avery Type: BLOOD SPECIMEN Ordering Facility: [facility] Address: [address] [place], [place] [phone] Performed By: #### 1 988-5 #### [facility] CLIA [id number] [address] [place] [address] [place] Urea nitrogen [Mass/Vol] 38 mg/dL High 9-24 [facility] Comment on above: Order Comment: Speci men Type: BLOOD SPECIMEN Ordering Facility: [facility] Address: [address] [place] [address] Performed By: #### 1 988-5 #### [facility] CLIA [id number] [address] [place] [address] [place] CASE MANAGEMon 11-06-2021 CASE MANAGEM HNO ID: [id number] Author: Galileo Rubalcava RN Service: ? Author Type: Registered Nurse Type: Care Mgt Progress Note Filed: 11/06/2021 2:09 PM Note Text: CARE MANAGEMENT WEEKEND PLANNING NOTE NO WEEKEND DISCHARGE Disposition: CASE MANAGMENT PROVIDER LIST: Home Care Anticipated Discharge Date: early next week Weekend [employer] Pager #: For weekend CM needs, please contact on-call CM at: G Building - [address] H Building - [address] J Building - [address] M Building - [address] Needs accepting [facility], multiple referrals sent. SIGNATURE: Galileo Rubalcava RN PATIENT NAME: Kenyetta Schumacher DATE: November 06, 2021 TIME: 2:09 PM PAGER/CONTACT #: [phone] Normal [facility] CBC panel Auto (Bld)on 11-06 Erythrocyte distribution width (RBC) [Ratio] 14.4 % Normal 11.5-15.0 [facility] Comment on above: Order Comment: Speci men Type: BLOOD SPECIMENOrdering Facility: [facility] Address: [address] [place], [place] [phone] Performed By: #### 5 8410-2 ####[facility] [id number] [address] [place] Hematocrit (Bld) [Volume fraction] 32.3 % Low 39.0-51.0 [facility] Comment on above: Order Comment: Speci men Type: BLOOD SPECIMENOrdering Facility: [facility] Address: [address] [place] [address] Performed By: #### 5 8410-2 ####[facility] [id number] [place] [address] [place] Hemoglobin (Bld) [Mass/Vol] 10.3 g/dL Low 13.0-17.0 [facility] Comment on above: Order Comment: Speci men Type: BLOOD SPECIMENOrdering Facility: [facility] Address: [address] [place] [address] Performed By: #### 5 8410-2 ####[facility] [id number] [place] [address] [place] MCH (RBC) [Entitic mass] 35.4 pg High 26.0-34.0 [facility] Comment on above: Order Comment: Speci men Type: BLOOD SPECIMENOrdering Facility: [facility] Address: [address] [place] [address] Performed By: #### 5 8410-2 ####[facility]IA [id number] [place] [address] [place] MCHC (RBC) [Mass/Vol] 31.9 g/dL Normal 30.5-36.0 [facility] Comment on above: Order Comment: Speci men Type: BLOOD SPECIMENOrdering Facility: [facility] Address: [address] [place], [place] [address] Performed By: #### 5 8410-2 ####[facility]IA [id number] [place] [address] [place] MCV (RBC) [Entitic vol] 111.0 fL High 80.0-100.0 [facility] Comment on above: Order Comment: Speci men Type: BLOOD SPECIMENOrdering Facility: [facility] Address: [address] [place], [place] [address] Performed By: #### 5 8410-2 ####[facility]IA [id number] [place] [address] [place] Nucleated RBC (Bld) [#/Vol] 10*3/uL Normal <0.01 [facility] Comment on above: Order Comment: Speci men Type: BLOOD SPECIMENOrdering Facility: [facility] Address: [address] [place], [place] [address] Performed By: #### 5 8410-2 ####[facility] [id number] [place] [address] [place] Platelet mean volume (Bld) [Entitic vol] 9.5 fL Normal 9.0-12.7 [facility] Comment on above: Order Comment: Speci men Type: BLOOD SPECIMENOrdering Facility: [facility] Address: [address] [place], [place] [address] Performed By: #### 5 8410-2 ####[facility]IA [id number] [place] [address] [place] Platelets (Bld) [#/Vol] 289 10*3/uL Normal 150-400 [facility] Comment on above: Order Comment: Speci men Type: BLOOD SPECIMENOrdering Facility: [facility] Address: [address] [place] [phone] Performed By: #### 5 8410-2 ####[facility]IA [id number] [place] [address] [place] RBC (Bld) [#/Vol] 2.91 10*6/uL Low 4.20-6.00 [facility] Comment on above: Order Comment: Speci men Type: BLOOD SPECIMENOrdering Facility: [facility] Address: [address] [place], [place] [address] Performed By: #### 5 8410-2 ####[facility] [id number] [place] [address] [place] WBC (Bld) [#/Vol] 5.43 10*3/uL Normal 3.70-11.00 [facility] Comment on above: Order Comment: Speci men Type: BLOOD SPECIMENOrdering Facility: [facility] Address: [address] [place] [address] Performed By: #### 5 8410-2 ####[facility]IA [id number] [place] [address] [place] CK CREATINE KINASEon 022 CK [Catalytic activity/Vol] 30 U/L Low 51-298 [facility] Comment on above: Order Comment: Speci men Type: BLOOD SPECIMENOrdering Facility: [facility] Address: [address] [place] [address] Performed By: #### 2 284-8, CK, 55886-3 ####[facility]IA [id number] [place] [address] [place] CONSULT PROGon 11-06-2021 CONSULT PROG HNO ID: [id number] Author: Quinton Bhatt MD Service: Rheumatology Author [...] Comments - Simvastatin Other: See Comments Current Facility-Administere d Medications Medication Dose Route Frequency - sodium [...] mg INTRAVENOUS q 8 H PRN - sulfamethoxazole-tri methoprim 800-160 mg 1 tablet (BACTRIM DS,SEPTRA DS) [...] 107/49 Pulse: 89 68 76 75 Resp: 20 20 18 18 Temp: 36.4 ?C (97.5 ?F) 36.7 ?C [...] abnormal enhanc (more content not included)... Normal [facility] ESR Westergren method (Bld) [Velocity]on 11-06-2021 ESR (Bld) [Velocity] 114 mm/h High 0-[facility] Comment on above: Order Comment: Misty avery Type: BLOOD SPECIMEN Ordering Facility: [facility] Address: [address] [place] [address] Performed By: #### 1 988-5 #### [facility] [place] [id number] [address] [place] [address] OF [facility] Folate SerPl-mCncon 11-07-19 22 Folate [Mass/Vol] 11.6 ng/mL Normal >4.7 [facility] Comment on above: Order Comment: Misty avery Type: BLOOD SPECIMEN Ordering Facility: [facility] Address: [address] [place] [address] Performed By: #### 1 988-5 #### [facility] [place] [id number] [address] [place] [address] [place] MRI LUMBAR SPINE WO/W IVCONo [...] vertebrae. ACTIONABLE RESULT: FOLLOW-UP Acuity: Actionable Findings: Kidneys/Ureters/Blad destini Routing Code: GU_1 Recommendation: US KIDNEY/BLADDER Time Frame: At the discretion of the clinical team. COMMUNICATION: Results will be communicated with the ordering provider via Your[employer] staff message or phone message by [employer] within 2 business days of report finalization. Algorithms for management of incidental imaging findings can be found on the [facility] Intranet Sharepoint site at: [email or web address] idental%20Findi ngs%20at%20Imaging/F orms/AllItems.aspx Medical Assistant Float: KAHLIL Transcribe Date/Time: Nov 05 2021 10:51P Dictated by : KATIE (more content not included)... Invalid Interpretation Code [facility] MRI PELVIS ORTHO GEN WO/W IV [...] suspicious marrow replacing lesions. Hip joints: Large msehg-ky-aieu images of the hips are unremarkable. Evaluation of articular cartilage and labrum is limited. Sacroiliac joints: Within normal limits. Pubic symphysis: Minimal edema like signal, possibly mechanical/degenerat cely. Tendons: The iliopsoas, hamstring, gluteal, and rectus [...] No discrete mass or marrow replacing lesion. Medical Assistant Float: [facility] HEBRONDangelo Transcribe Date/Time: Nov 06 2021 7:55A Dictated by : QUINTON PELAEZ MD This examination was interpreted and the report reviewed and electronically signed by: SUSAN YI MD on Nov 06 2021 8:32AM EST [id number] CN Normal [facility] MRI THORACIC SPINE WO/W IVCO Non [...] vertebrae. ACTIONABLE RESULT: FOLLOW-UP Acuity: Actionable Findings: Kidneys/Ureters/Blad destini Routing Code: GU_1 Recommendation: US KIDNEY/BLADDER Time Frame: At the discretion of the clinical team. COMMUNICATION: Results will be communicated with the ordering provider via YourPlace staff message or phone message by [facility] [employer] [facility] within 2 business days of report finalization. Algorithms for management of incidental imaging findings can be found on the [facility] Intranet Sharepoint site at: [email or web address] idental%20Findi ngs%20at%20Imaging/F orms/AllItems.aspx Medical Assistant Float: KAHLIL Transcribe Date/Time: Nov 05 2021 10:51P Dictated by : JANETTE (more content not included)... Invalid Interpretation Code [facility] THERAPY NTon 11-06-2021 THERAPY NT HNO ID: [id number] Author: Angela Velasquez, OT/L Service: Occupational Therapy Author Type: Occupational Therapist Type: Therapy (PT/OT/Speech/Resp) Filed: 11/06/2021 1:58 PM Note Text: Occupational Therapy Treatment SERVICE DATE: 11/06/2021 SERVICE TIME: 1306 to 1347 ROOM: [place] [address] Recommended Discharge Disposition: Home OT Recommended Discharge [...] at Home Physical Assist at Home for: Cleaning;Laundry;Susana ls;Self Care;Shopping;Transp ortation OT 6 Clicks Score: 21 Precautions/Activity Restrictions: [...] Impaired Treatment Interventions: Education;Self Care / Home Management;Functiona l Mobility Training;Balance Training;Joint Mobility Plan for next [...] Laundry: in basement completes Equipment Owned: Rollator;Wheeled Walker;Wheelchair; ower Chair;Hand Held Shower;Commode-3 in 1 Prior Functional [...] attempted Tra (more content not included)... Normal [facility] Basic metabolic 2000 panelon 11-05-2021 Anion gap [Moles/Vol] 15 mmol/L Normal 9-18 [facility] Comment on above: Order Comment: Speci men Type: BLOOD SPECIMENOrdering Facility: [facility] Address: [address] [place] [address] Performed By: #### C K, 65599-7, 86115-8, 1987-12, B12 ####[facility] [id number] [place] [address] [place] Calcium [Mass/Vol] 9.5 mg/dL Normal 8.5-10.2 [facility] Comment on above: Order Comment: Speci men Type: BLOOD SPECIMENOrdering Facility: [facility] Address: [address] [place] [address] Performed By: #### Isaiah Corcoran, 62973-2, 95076-2, 1987-12, B12 ####[facility] [id number] [place] [address] [place] Chloride [Moles/Vol] 104 mmol/L Normal 97-105 [facility] Comment on above: Order Comment: Speci men Type: BLOOD SPECIMENOrdering Facility: [facility] Address: [address] [place], [place] [address] Performed By: #### C K, 01372-8, 19626-8, 1987-12, B12 ####[facility] [id number] [place] [address] [place] CO2 [Moles/Vol] 18 mmol/L Low 22-30 [facility] Comment on above: Order Comment: Speci men Type: BLOOD SPECIMENOrdering Facility: [facility] Address: [address] [place], [place] [address] Performed By: #### C K, 78464-4, 97027-8, 1987-12, B12 ####[facility]IA [id number] [place] [address] [place] Creatinine [Mass/Vol] 1.97 mg/dL High 0.73-1.22 [facility] Comment on above: Order Comment: Speci men Type: BLOOD SPECIMENOrdering Facility: [facility] Address: [address] [place] [address] Performed By: #### Isaiah Corcoran, 64790-6, 04496-0, 1987-12, B12 ####[facility]IA [id number] [place] [address] [place] ESTIMATED GLOMERULAR FILTRATION RATE 37 mL/min/1.73m??? Low >=60 [facility] Comment on above: Order Comment: Misty avery Type: BLOOD SPECIMENOrdering Facility: [facility] Address: [address] [place] [address] Result Comment: Sara mated Glomerular Filtration Rate [...] actual GFR. Performed By: #### Isaiah Corcoran, 08408-1, 45468-5, 1987-12, B12 ####[facility]IA [id number] [place] [address] [place] Glucose [Mass/Vol] 137 mg/dL High 74-99 [facility] Comment on above: Order Comment: Speci men Type: BLOOD SPECIMENOrdering Facility: [facility] Address: [address] [place] [address] Result Comment: The [place] Diabetes Association (ADA) provides guidance for cutoff [...] Standards of Medical Care in Diabetes 2016, [place] Diabetes Association. Diabetes Care. 2016.39(Suppl 1). Performed By: #### Isaiah Corcoran, 55274-7, , 1987-12, B12 ####[facility] [id number] [place] [address] [place] Potassium [Moles/Vol] 5.3 mmol/L High 3.7-5.1 [facility] Comment on above: Order Comment: Speci men Type: BLOOD SPECIMENOrdering Facility: [facility] Address: [address] [place] [address] Performed By: #### Isaiah Corcoran, 25991-4, , 1987-12, B12 ####[facility] [id number] [place] [address] [place] Sodium [Moles/Vol] 137 mmol/L Normal 136-144 [facility] Comment on above: Order Comment: Speci men Type: BLOOD SPECIMENOrdering Facility: [facility] Address: [address] [place] [address] Performed By: #### Isaiah Corcoran, 13171-4, , 1987-12, B12 ####[facility]IA [id number] [place] [address] [place] Urea nitrogen [Mass/Vol] 40 mg/dL High 9-24 [facility] Comment on above: Order Comment: Speci men Type: BLOOD SPECIMENOrdering Facility: [facility] Address: [address] [place] [address] Performed By: #### Isaiah Corcoran, 40897-4, , 1987-12, B12 ####[facility]IA [id number] [place] [address] [place] Anion gap [Moles/Vol] 14 mmol/L Normal 9-18 [facility] Comment on above: Order Comment: Speci men Type: BLOOD SPECIMENOrdering Facility: [facility] Address: [address] [place], [place] [address] Performed By: #### 2 4321-2 ####[facility] [id number] [place] [address] [place] Calcium [Mass/Vol] 9.2 mg/dL Normal 8.5-10.2 [facility] Comment on above: Order Comment: Speci men Type: BLOOD SPECIMENOrdering Facility: [facility] Address: [address] [place], [place] [address] Performed By: #### 2 4321-2 ####[facility]IA [id number] [place] [address] [place] Chloride [Moles/Vol] 105 mmol/L Normal 97-105 [facility] Comment on above: Order Comment: Speci men Type: BLOOD SPECIMENOrdering Facility: [facility] Address: [address] [place], [place] [address] Performed By: #### 2 4321-2 ####[facility] [id number] [place] [address] [place] CO2 [Moles/Vol] 19 mmol/L Low 22-30 [facility] Comment on above: Order Comment: Speci men Type: BLOOD SPECIMENOrdering Facility: [facility] Address: [address] [place], [place] [address] Performed By: #### 2 4321-2 ####[facility]CLIA [id number] [place] [address] [place] Creatinine [Mass/Vol] 1.97 mg/dL High 0.73-1.22 [facility] Comment on above: Order Comment: Misty bennie Type: BLOOD SPECIMENOrdering Facility: [facility] Address: [address] [place] [address] Performed By: #### 2 4321-2 ####[facility] [id number] [place] [address] [place] ESTIMATED GLOMERULAR FILTRATION RATE 37 mL/min/1.73m??? Low >=60 [facility] Comment on above: Order Comment: Speci men Type: BLOOD SPECIMENOrdering Facility: [facility] Address: [address] [place] [address] Result Comment: Sara mated Glomerular Filtration Rate [...] actual GFR. Performed By: #### 2 4321-2 ####[facility] [id number] [place] [address] [place] Glucose [Mass/Vol] 164 mg/dL High 74-99 [facility] Comment on above: Order Comment: Misty bennie Type: BLOOD SPECIMENOrdering Facility: [facility] Address: [address] [place] [address] Result Comment: The [place] Diabetes Association (ADA) provides guidance for cutoff [...] Standards of Medical Care in Diabetes 2016, [place] Diabetes Association. Diabetes Care. 2016.39(Suppl 1). Performed By: #### 2 4321-2 ####[facility]IA [id number] [place] [address] [place] Potassium [Moles/Vol] 5.5 mmol/L High 3.7-5.1 [facility] Comment on above: Order Comment: Speci men Type: BLOOD SPECIMENOrdering Facility: [facility] Address: [address] [place] [address] Performed By: #### 2 4321-2 ####[facility]IA [id number] [place] [address] [place] Sodium [Moles/Vol] 138 mmol/L Normal 136-144 [facility] Comment on above: Order Comment: Speci men Type: BLOOD SPECIMENOrdering Facility: [facility] Address: [address] [place] [address] Performed By: #### 2 4321-2 ####[facility]IA [id number] [place] [address] [place] Urea nitrogen [Mass/Vol] 38 mg/dL High 9-24 [facility] Comment on above: Order Comment: Speci men Type: BLOOD SPECIMENOrdering Facility: [facility] Address: [address] [place] [address] Performed By: #### 2 4321-2 ####[facility]IA [id number] [place] [address] [place] CBC panel Auto (Bld)on 11-05 Erythrocyte distribution width (RBC) [Ratio] 14.7 % Normal 11.5-15.0 [facility] Comment on above: Order Comment: Speci men Type: BLOOD SPECIMENOrdering Facility: [facility] Address: [address] [place] [address] Performed By: #### 5 8410-2 ####[facility]IA [id number] [place] [address] [place] Hematocrit (Bld) [Volume fraction] 33.1 % Low 39.0-51.0 [facility] Comment on above: Order Comment: Speci men Type: BLOOD SPECIMENOrdering Facility: [facility] Address: [address] [place] [address] Performed By: #### 5 8410-2 ####[facility]IA [id number] [place] [address] [place] Hemoglobin (Bld) [Mass/Vol] 10.7 g/dL Low 13.0-17.0 [facility] Comment on above: Order Comment: Speci men Type: BLOOD SPECIMENOrdering Facility: [facility] Address: [address] [place] [address] Performed By: #### 5 8410-2 ####[facility] [id number] [address] OF [facility] MCH (RBC) [Entitic mass] 35.3 pg High 26.0-34.0 [facility] Comment on above: Order Comment: Speci men Type: BLOOD SPECIMENOrdering Facility: [facility] Address: [address] [place] [address] Performed By: #### 5 8410-2 ####[facility]IA [id number] [address] [place] MCHC (RBC) [Mass/Vol] 32.3 g/dL Normal 30.5-36.0 [facility] Comment on above: Order Comment: Speci men Type: BLOOD SPECIMENOrdering Facility: [facility] Address: [address] [place] [address] Performed By: #### 5 8410-2 ####[facility]IA [id number] [place] [address] [place] MCV (RBC) [Entitic vol] 109.2 fL High 80.0-100.0 [facility] Comment on above: Order Comment: Speci men Type: BLOOD SPECIMENOrdering Facility: [facility] Address: [address] [place], [place] [address] Performed By: #### 5 8410-2 ####[facility] [id number] [place] [address] [place] Nucleated RBC (Bld) [#/Vol] 10*3/uL Normal <0.01 [facility] Comment on above: Order Comment: Speci men Type: BLOOD SPECIMENOrdering Facility: [facility] Address: [address] [place], [place] [address] Performed By: #### 5 8410-2 ####[facility]IA [id number] [place] [address] [place] Platelet mean volume (Bld) [Entitic vol] 9.4 fL Normal 9.0-12.7 [facility] Comment on above: Order Comment: Speci men Type: BLOOD SPECIMENOrdering Facility: [facility] Address: [address] [place], [place] [address] Performed By: #### 5 8410-2 ####[facility]IA [id number] [place] [address] [place] Platelets (Bld) [#/Vol] 322 10*3/uL Normal 150-400 [facility] Comment on above: Order Comment: Speci men Type: BLOOD SPECIMENOrdering Facility: [facility] Address: [address] [place], [place] [address] Performed By: #### 5 8410-2 ####[facility] [id number] [place] [address] [place] RBC (Bld) [#/Vol] 3.03 10*6/uL Low 4.20-6.00 [facility] Comment on above: Order Comment: Speci men Type: BLOOD SPECIMENOrdering Facility: [facility] [facility] Address: [address] [place] [address] Performed By: #### 5 8410-2 ####[facility]CLIA [id number] [address] WBC (Bld) [#/Vol] 8.50 10*3/uL Normal 3.70-11.00 [facility] Comment on above: Order Comment: Speci men Type: BLOOD SPECIMENOrdering Facility: [facility] Address: [address] [place] [address] Performed By: #### 5 8410-2 ####[facility] LABIA [id number] [address] CK CREATINE KINASEon 022 CK [Catalytic activity/Vol] 36 U/L Low 51-298 [facility] Comment on above: Order Comment: Speci men Type: BLOOD SPECIMENOrdering Facility: [facility] Address: [address] [place] [address] Performed By: #### C K, 34443-3, 97967-9, 1987-, B12 ####[facility] LABIA [id number] [address] [place] CONSULTon 11-05-2021 CONSULT HNO ID: [id number] Author: Quinton Bhatt MD Service: Rheumatology Author [...] or excessive drinking. 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 Medical History: PAST MEDICAL HISTORY Diagnosis Date [...] Comments - Simvastatin Other: See Comments Current Facility-Administere d Medications Medication Dose Route Frequency - iv [...] mg INTRAVENOUS q 8 H PRN - sulfamethoxazole-tri methoprim 800-160 mg 1 tablet (BACTRIM DS,SEPTRA DS) [...] INTRAVENOUS A (more content not included)... Normal [facility] Tony CONSULT HNO ID: [id number] Author: Willie Foster MD Service: Urology Author [...] Recommendations - No urologic source to explain thoracic/lumbar/bila teral groin pain - No acute urological intervention [...] denies fever, chills, penile discharge, foul-smelling urine. ----- PAST MEDICAL HISTORY Diagnosis Date - Adrenal [...] 160 mg by mouth once daily. Current Facility-Administere d Medications Medication Dose Route Frequency - iv [...] mg INTRAVENOUS q 8 H PRN - sulfamethoxazole-tri methoprim 800-160 mg 1 tablet (BACTRIM DS,SEPTRA DS) [...] distress, well-nourishe (more content not included)... Normal [facility] CRP SerPl-mCncon 11-05-2021 CRP [Mass/Vol] 9.9 mg/dL High <0.9 [facility] Comment on above: Order Comment: Speci men Type: BLOOD SPECIMENOrdering Facility: [facility] Address: [address] [place] [address] Performed By: #### C K, 07563-4, 07299-0, 1987-, B12 ####[facility]CLIA [id number] [address] [place] Free PSA [Mass/Vol]on 2021 Free PSA/Total PSA [Mass fraction] Normal [facility] Comment on above: Order Comment: Speci men Type: BLOOD SPECIMENOrdering Facility: [facility] Address: [address] [place] [address] Result Comment: Perc ent free not reported [...] >25 9.1% 12.2% 15.8% Performed By: #### C K, 28633-1, 50133-9, 1987-12, B12 ####[facility]CLIA [id number] [place] [address] [place] [facility] Prostate specific Ag [Mass/Vol] ng/mL Normal <2.60 [facility] Comment on above: Order Comment: Speci men Type: BLOOD SPECIMENOrdering Facility: [facility] Address: [address] [place] [address] Result Comment: Tota l PSA test methodology used is the Electrochemiluminescence Immunoassay by [employer]. Total PSA values by differing methodologies cannot be interchanged. Performed By: #### C K, 78477-6, , 1987-12, B12 ####[facility]CLIA [id number] [place] [address] [place] GC AMPLIFICATION, URINEon GC AMPLIFICATION, URINE GC AMPLIFICATION: Negative for Neisseria gonorrhoeae by amplification Normal [facility] Comment on above: Performed By: #### U GC ####[facility]CLIA [id number] [place] [address] [place] GC/CHLAMYDIA AMPLIF, URINEon 11-05-2021 GC/CHLAMYDIA AMPLIF, URINE GC AMPLIFICATION: Negative for Neisseria gonorrhoeae by amplification CHLAMYDIA AMPLIFICATION: Negative for Chlamydia trachomatis by amplification Normal [facility] Comment on above: Performed By: #### U GCCT ####[facility]CLIA [id number] [place] [address] [place] GC/CHLAMYDIA AMPLIF, URINE GC AMPLIFICATION: Negative for Neisseria gonorrhoeae by amplification CHLAMYDIA AMPLIFICATION: Negative for Chlamydia trachomatis by amplification Normal [facility] Comment on above: Performed By: #### U GCCT ####[facility] [id number] [place] [address] [place] NURSING PROGon 11-05-2021 NURSING PROG HNO ID: [id number] Author: Lala Awad RN Service: Radiology Author [...] II IV SITE: Inpatient - refer to [facility] documentation IV SITE APPEARANCE: Clean,Dry and Intact SIGNATURE: Lala Awad RN PATIENT NAME: Kenyetta Schumacher DATE: November 05, 2021 TIME: 9:03 PM Normal [facility] NURSING PROG HNO ID: [id number] Author: Thais De La Vega RN Service: ? Author Type: Registered Nurse Type: Nursing Progress Note Filed: 11/04/2021 11:41 PM Note Text: Nursing Progress Note Patient Name: Kenyetta Schumacher Patient Location: H081 021/H081-21 Transfer Note: Patient transferred into room/unit [facility] in stable condition. Actions taken: No futher actions taken at this time. Will continue to monitor and check with patient. This note was completed by: Thais Liang [facility] NURSING PROG HNO ID: [id number] Author: Val Bruce RN Service: Nursing Author Type: Registered Nurse Type: Nursing Progress Note Filed: 11/04/2021 10:31 PM Note Text: Nursing Progress Note Patient Name: Kenyetta Schumacher Patient Location: [place] [address] Daily Note: 2212: Report given to Yandy PAHRAM on H81. 2229: Patient left unit at this time via wheelchair in stable condition. Patient transferred to [facility] with all belongings. This note was completed by: Val Liang [facility] THERAPY NTon 11-05-2021 THERAPY NT HNO ID: [id number] Author: Luis Carlos Maher PT Service: Physical Therapy Author Type: Physical Therapist Type: Therapy (PT/OT/Speech/Resp) Filed: 11/05/2021 11:43 AM Note Text: Physical Therapy Evaluation SERVICE DATE: 11/05/2021 SERVICE TIME: 1108 to 1132 ROOM: [place] [address] Recommended Discharge Disposition: Home PT Recommended Discharge Disposition Comments: Pt appropriate for d/c to home PT with 24h physical assistance once medically ready - pt agreeable. Anticipated Discharge Needs: Physical Assist at Home Physical Assist at Home for: Cleaning;Laundry;Susana ls;Self Care;Shopping;Transp ortation Recommended Discharge Equipment: No equipment needs anticipated [...] Education;Self Care / Home Management;Energy Conservation Training;Joint Mobility;Strengtheni ng;Functional Mobility Training;Balance Training;Neuromuscul ar Re-education Plan for next visit: Gait training, [...] Laundry: in basement completes Equipment Owned: Rollator;Wheeled Walker;Wheelchair; ower Chair;Hand Held Shower;Commode-3 in 1 Prior Functional [...] Blank thorpe indicate activity not attempted General Deviations/Observati ons: Naty decreased;Difficulty changing direction/turning;Fl exed trunk posture;Step length decreased;UE weight bearing on assistive device excessive JH-HLM: 6: Walk 10 steps or more Learning/Educational Needs: Discharge Plan;Equipment;Famil y Education/Training;F unctional Activities/Mobility; Plan of Care;PT In-Hospital Exercise Program;Rehabilitati on Techniques and Procedures;Safety Goals for Plan of Care: (more content not included)... Normal [facility] NT HNO ID: [id number] Author: Luis Carlos Maher PT Service: Physical Therapy Author Type: Physical Therapist Type: Therapy (PT/OT/Speech/Resp) Filed: 11/05/2021 10:04 AM Note Text: PHYSICAL THERAPY MISSED VISIT SERVICE DATE: 11/05/2021 SERVICE TIME: 1003 to 1003 ROOM: [place] [address] Patient not seen due to Illness (per OT and RN pt having N/V d/t back pain from ambulating). Will re-attempt as appropriate/able. SIGNATURE: Luis Carlos Maher PT PATIENT NAME: Kenyetta Schumacher DATE: November 05, 2021 TIME: 10:04 AM [facility] NT HNO ID: [id number] Author: Angela Velasquez OT/L Service: Occupational Therapy Author Type: Occupational Therapist Type: Therapy (PT/OT/Speech/Resp) Filed: 11/05/2021 9:33 AM Note Text: Occupational Therapy Evaluation SERVICE DATE: 11/05/2021 SERVICE TIME: 0807 to 915 ROOM: [place] [address] Recommended Discharge Disposition: Home OT Recommended Discharge [...] at Home Physical Assist at Home for: Cleaning;Laundry;Susana ls;Transportation;Sh opping;Self Care OT 6 Clicks Score: 19 Precautions/Activity [...] Care;Decreased Activity Tolerance;Decreased Strength;Functional Mobility Impairment;Balance Impaired Cognition/Communicat ion Deficits Responsiveness: Alert, Awake Follows Commands: 3-step [...] Laundry: in basement completes Equipment Owned: Rollator;Wheeled Walker;Wheelchair; ower Chair;Hand Held Shower;Commode-3 in 1 Prior Functional [...] as n (more content not included)... Normal [facility] VITAMIN B12 BLOODon 11-06-19 22 Cobalamin (Vitamin B12) [Mass/Vol] 483 pg/mL Normal 232-1,245 [facility] Comment on above: Order Comment: Speci men Type: BLOOD SPECIMENOrdering Facility: [facility] Address: [address] [place], [place] [address] Performed By: #### C K, 46021-4, 19402-0, 1987-, B12 ####[facility]CLIA [id number] [place] [address] [place] Bacteria Bld Culton 11-05-19 22 Bacteria identified Cx Nom (Bld) CULTURE, BLOOD: No growth 5 days Normal [facility] Comment on above: Performed By: #### 6 00-7 ####[facility]CLIA [id number] [place] [address] [place] Bacteria Ur Culton 2 Bacteria identified Cx Nom (U) CULTURE, URINE: No growth (<1,000 CFU/ml) Normal [facility] Comment on above: Performed By: #### 6 30-4 ####[facility]CLIA [id number] [place] [address] [place] CBC panel Auto (Bld)on 11-04 Erythrocyte distribution width (RBC) [Ratio] 14.5 % Normal 11.5-15.0 [facility] Comment on above: Order Comment: Speci men Type: BLOOD SPECIMEN Ordering Facility: [facility] Address: [address] [place] [address] Performed By: #### 1 988-5 #### [facility] CLIA [id number] [address] [place] [address] [place] Hematocrit (Bld) [Volume fraction] 33.5 % Low 39.0-51.0 [facility] Comment on above: Order Comment: Speci men Type: BLOOD SPECIMEN Ordering Facility: [facility] Address: [address] [place], [place] [address] Performed By: #### 1 988-5 #### [facility] CLIA [id number] [address] [place] [address] [place] Hemoglobin (Bld) [Mass/Vol] 11.2 g/dL Low 13.0-17.0 [facility] Comment on above: Order Comment: Speci men Type: BLOOD SPECIMEN Ordering Facility: [facility] Address: [address] [place], [place] [address] Performed By: #### 1 988-5 #### [facility] CLIA [id number] [address] [place] [address] [place] MCH (RBC) [Entitic mass] 36.4 pg High 26.0-34.0 [facility] Comment on above: Order Comment: Speci men Type: BLOOD SPECIMEN Ordering Facility: [facility] Address: [address] [place], [place] [address] Performed By: #### 1 988-5 #### [facility] CLIA [id number] [address] [place] [address] [place] MCHC (RBC) [Mass/Vol] 33.4 g/dL Normal 30.5-36.0 [facility] Comment on above: Order Comment: Speci men Type: BLOOD SPECIMEN Ordering Facility: [facility] Address: [address] [place], [place] [address] Performed By: #### 1 988-5 #### [facility] CLIA [id number] [address] [place] [address] [place] MCV (RBC) [Entitic vol] 108.8 fL High 80.0-100.0 [facility] Comment on above: Order Comment: Speci men Type: BLOOD SPECIMEN Ordering Facility: [facility] Address: [address] [place], [place] [address] Performed By: #### 1 988-5 #### [facility] CLIA [id number] [address] [place] [address] [place] Nucleated RBC (Bld) [#/Vol] 10*3/uL Normal <0.01 [facility] Comment on above: Order Comment: Speci men Type: BLOOD SPECIMEN Ordering Facility: [facility] Address: [address] [place], [place] [address] Performed By: #### 1 988-5 #### [facility] CLIA [id number] [address] [place] [address] [place] Platelet mean volume (Bld) [Entitic vol] 9.5 fL Normal 9.0-12.7 [facility] Comment on above: Order Comment: Speci men Type: BLOOD SPECIMEN Ordering Facility: [facility] Address: [address] [place], [place] [address] Performed By: #### 1 988-5 #### [facility] CLIA [id number] [address] [place] [address] [place] Platelets (Bld) [#/Vol] 297 10*3/uL Normal 150-400 [facility] Comment on above: Order Comment: Speci men Type: BLOOD SPECIMEN Ordering Facility: [facility] Address: [address] [place], [place] [address] Performed By: #### 1 988-5 #### [facility] CLIA [id number] [address] [place] [address] [place] RBC (Bld) [#/Vol] 3.08 10*6/uL Low 4.20-6.00 [facility] Comment on above: Order Comment: Speci men Type: BLOOD SPECIMEN Ordering Facility: [facility] Address: [address] [place] [address] Performed By: #### 1 988-5 #### [facility] CLIA [id number] [address] [place] [address] [place] WBC (Bld) [#/Vol] 9.33 10*3/uL Normal 3.70-11.00 [facility] Comment on above: Order Comment: Speci men Type: BLOOD SPECIMEN Ordering Facility: [facility] Address: [address] [place], [place] [address] Performed By: #### 1 988-5 #### [facility] CLIA [id number] [place] [address] [place] Erythrocyte distribution width (RBC) [Ratio] 14.6 % Normal 11.5-15.0 [facility] Comment on above: Order Comment: Speci men Type: BLOOD SPECIMENOrdering Facility: [facility] Address: [address] [place], [place] [address] Performed By: #### 5 8410-2 ####[facility] LABIA [id number] [place] [address] [place] Hematocrit (Bld) [Volume fraction] 37.8 % Low 39.0-51.0 [facility] Comment on above: Order Comment: Speci men Type: BLOOD SPECIMENOrdering Facility: [facility] Address: [address] [place], [place] [address] Performed By: #### 5 8410-2 ####[facility] LABIA [id number] [place] [address] [place] Hemoglobin (Bld) [Mass/Vol] 12.5 g/dL Low 13.0-17.0 [facility] Comment on above: Order Comment: Speci men Type: BLOOD SPECIMENOrdering Facility: [facility] Address: [address] [place], [place] [address] Performed By: #### 5 8410-2 ####[facility] LABIA [id number] [place] [address] [place] MCH (RBC) [Entitic mass] 36.0 pg High 26.0-34.0 [facility] Comment on above: Order Comment: Speci men Type: BLOOD SPECIMENOrdering Facility: [facility] Address: [address] [place] [address] Performed By: #### 5 8410-2 ####[facility] LABIA [id number] [place] MCHC (RBC) [Mass/Vol] 33.1 g/dL Normal 30.5-36.0 [facility] Comment on above: Order Comment: Speci men Type: BLOOD SPECIMENOrdering Facility: [facility] Address: [address] [place], [place] [address] Performed By: #### 5 8410-2 ####[facility] LABIA [id number] [place] [address] [place] MCV (RBC) [Entitic vol] 108.9 fL High 80.0-100.0 [facility] Comment on above: Order Comment: Speci men Type: BLOOD SPECIMENOrdering Facility: [facility] Address: [address] [place], [place] [address] Performed By: #### 5 8410-2 ####[facility] LABIA [id number] [place] [address] [place] Nucleated RBC (Bld) [#/Vol] 10*3/uL Normal <0.01 [facility] Comment on above: Order Comment: Speci men Type: BLOOD SPECIMENOrdering Facility: [facility] Address: [address] [place], [place] [address] Performed By: #### 5 8410-2 ####[facility] LABIA [id number] [place] [address] [place] Platelet mean volume (Bld) [Entitic vol] 9.8 fL Normal 9.0-12.7 [facility] Comment on above: Order Comment: Speci men Type: BLOOD SPECIMENOrdering Facility: [facility] Address: [address] [place], [place] [address] Performed By: #### 5 8410-2 ####[facility]CLIA [id number] [place] [address] [place] Platelets (Bld) [#/Vol] 310 10*3/uL Normal 150-400 [facility] Comment on above: Order Comment: Speci men Type: BLOOD SPECIMENOrdering Facility: [facility] Address: [address] [place] [address] Performed By: #### 5 8410-2 ####[facility]CLIA [id number] [place] [address] [place] RBC (Bld) [#/Vol] 3.47 10*6/uL Low 4.20-6.00 [facility] Comment on above: Order Comment: Speci men Type: BLOOD SPECIMENOrdering Facility: [facility] Address: [address] [place] [address] Performed By: #### 5 8410-2 ####[facility]CLIA [id number] [place] [address] [place] WBC (Bld) [#/Vol] 8.95 10*3/uL Normal 3.70-11.00 [facility] Comment on above: Order Comment: Speci men Type: BLOOD SPECIMENOrdering Facility: [facility] Address: [address] [place] [address] Performed By: #### 5 8410-2 ####[facility]CLIA [id number] [place] [address] [place] CONSULTon 11-04-2021 CONSULT HNO ID: [id number] Author: Eugene Kaminski MD Service: Geriatrics Author [...] any assistance?: Yes Insurance/ACO - Insurance: Payor: [employer] / Plan: [employer] OAP / Product Type: Open Access / [...] I, Transferring: I, Continence: I, Feeding: I (Cramen Index): 6 I-ADLs: Ability to use phone: [...] appropriate. Please see the relevant sections in Epic EHR for appropriate details. ALLERGIES Allergen Reactions - Amino Acids Other: See Comments - Dextroamphetamine Other: See Comments - Losartan Other: See Comments - Simvastatin Other: See Comments Current Facility-Administere d Medications Medication Dose Route Frequency - iv [...] Date Value (more content not included)... Normal [facility] CRP SerPl-mCncon 11-04-2021 CRP [Mass/Vol] 14.2 mg/dL High <0.9 [facility] Comment on above: Order Comment: Speci men Type: BLOOD SPECIMENOrdering Facility: [facility] Address: [address] [place] [address] [place] [id number] Performed By: #### 2 4323-8, 1987-12 ####[facility]CLIA [id number] [address] [place] [id number] [address] [place] [address] ABD/PEL W IVCONon 022 CT ABD/PEL W IVCON * * *Final Report* * * DATE OF EXAM: Nov 04 2021 3:11PM [facility] 0530 - CT ABD/PEL W IVCON / [...] Lymph nodes: No abdominal or pelvic lymphadenopathy. Mesentery/Peritoneum : No ascites or mass. Retroperitoneum: No mass. [...] Calcified granuloma in the left lower lobe. Digital Advertising Specialist (topogram) images: No additional findings. IMPRESSION: NO ACUTE PROCESS. SMALL LEFT ADRENAL NODULE LIKELY AN ADENOMA. Medical Assistant Float: KAHLIL Transcribe Date/Time: Nov 04 2021 3:18P Dictated by : DEMI JOHNSTON, This examination was interpreted and the report reviewed and electronically signed by: KODI MOORE MD on Nov 04 2021 3:32PM EST [id number] CN Normal [facility] Comprehensive metabolic 2000 panelon 11-04-2021 Albumin [Mass/Vol] 4.3 g/dL Normal 3.9-4.9 [facility] Comment on above: Order Comment: Speci men Type: BLOOD SPECIMENOrdering Facility: [facility] Address: [address] [place] [address] Performed By: #### 2 43211-03, 1987-12 ####[facility]CLIA [id number] [place] [address] [place] ALP [Catalytic activity/Vol] 61 U/L Normal 38-113 [facility] Comment on above: Order Comment: Speci men Type: BLOOD SPECIMENOrdering Facility: [facility] Address: [address] [place] [address] Performed By: #### 2 4323-03, 1987-12 ####[facility]IA [id number] [address] [place] ALT [Catalytic activity/Vol] 16 U/L Normal 10-54 [facility] Comment on above: Order Comment: Speci men Type: BLOOD SPECIMENOrdering Facility: [facility] Address: [address] [place], [place] [id number] Performed By: #### 2 4323-03, 1987-12 ####[facility] [id number] [place] [address] [place] Anion gap [Moles/Vol] 12 mmol/L Normal 9-18 [facility] Comment on above: Order Comment: Speci men Type: BLOOD SPECIMENOrdering Facility: [facility] Address: [address] [place], [place] [address] Performed By: #### 2 4323-03, 1987-12 ####[facility] [id number] [place] [address] [place] AST [Catalytic activity/Vol] 10 U/L Low 14-40 [facility] Comment on above: Order Comment: Speci men Type: BLOOD SPECIMENOrdering Facility: [facility] Address: [address] [place], [place] [address] Performed By: #### 2 4323-03, 1987-12 ####[facility] [id number] [place] [address] [place] Bilirubin [Mass/Vol] 0.3 mg/dL Normal 0.2-1.3 [facility] Comment on above: Order Comment: Speci men Type: BLOOD SPECIMENOrdering Facility: [facility] Address: [address] [place], [place] [address] Performed By: #### 2 4323-03, 1987-12 ####[facility] [id number] [place] [address] [place] Calcium [Mass/Vol] 9.6 mg/dL Normal 8.5-10.2 [facility] Comment on above: Order Comment: Speci men Type: BLOOD SPECIMENOrdering Facility: [facility] Address: [address] [place] [address] Performed By: #### 2 4323-03, 1987-12 ####[facility] [id number] [place] [address] [place] Chloride [Moles/Vol] 106 mmol/L High 97-105 [facility] Comment on above: Order Comment: Speci men Type: BLOOD SPECIMENOrdering Facility: [facility] Address: [address] [place], [place] [address] Performed By: #### 2 43211-03, 1987-12 ####[facility] [id number] [place] [address] [place] CO2 [Moles/Vol] 21 mmol/L Low 22-30 [facility] Comment on above: Order Comment: Speci men Type: BLOOD SPECIMENOrdering Facility: [facility] Address: [address] [place] [address] Performed By: #### 2 4323-03, 1987-12 ####[facility] [id number] [place] [address] [place] Creatinine [Mass/Vol] 1.80 mg/dL High 0.73-1.22 [facility] Comment on above: Order Comment: Speci men Type: BLOOD SPECIMENOrdering Facility: [facility] Address: [address] [place] [address] Performed By: #### 2 4323-03, 1987-12 ####[facility] LABIA [id number] [place] [address] [place] ESTIMATED GLOMERULAR FILTRATION RATE 41 mL/min/1.73m??? Low >=60 [facility] Comment on above: Order Comment: Speci men Type: BLOOD SPECIMENOrdering Facility: [facility] Address: [address] [place] [address] Result Comment: Sara mated Glomerular Filtration Rate [...] reflect actual GFR. Performed By: #### 2 43211-03, 1987-12 ####[facility] LABCLIA [id number] [place] [address] [place] Glucose [Mass/Vol] 135 mg/dL High 74-99 [facility] Comment on above: Order Comment: Misty avery Type: BLOOD SPECIMENOrdering Facility: [facility] Address: [address] [address] [place] [phone] Result Comment: The [place] Diabetes Association (ADA) provides guidance for cutoff [...] Standards of Medical Care in Diabetes 2016, [place] Diabetes Association. Diabetes Care. 2016.39(Suppl 1). Performed By: #### 2 43211-03, 1987-12 ####[facility] LABCLIA [id number] [place] [address] [place] Potassium [Moles/Vol] 4.9 mmol/L Normal 3.7-5.1 [facility] Comment on above: Order Comment: Misty avery Type: BLOOD SPECIMENOrdering Facility: [facility] Address: [address] [phone] Performed By: #### 2 43211-03, 1987-12 ####[facility] LABCLIA [id number] [facility] [place] [address] [place] Protein [Mass/Vol] 7.7 g/dL Normal 6.3-8.0 [facility] Comment on above: Order Comment: Misty avery Type: BLOOD SPECIMENOrdering Facility: [facility] Address: [address] [place], [place] [address] [phone] Performed By: #### 2 4323-03, 1987-12 ####[facility] LABCLIA [id number] [facility] [place] [address] [place] Sodium [Moles/Vol] 139 mmol/L Normal 136-144 [facility] Comment on above: Order Comment: Speci men Type: BLOOD SPECIMENOrdering Facility: [facility] Address: [address] [place], [place] [phone] Performed By: #### 2 4323-8, 1987-12 ####[facility] LABCLIA [id number] [address] OF [facility] Urea nitrogen [Mass/Vol] 44 mg/dL High 9-24 [facility] Comment on above: Order Comment: Speci men Type: BLOOD SPECIMENOrdering Facility: [facility] Address: [address] [place], [place] [phone] Performed By: #### 2 43238, 1987-12 ####[facility] LABCLIA [id number] [address] OF [facility] ED NOTEon 11-04-2021 ED NOTE HNO ID: [id number] Author: Sylvia Bull RN Service: ? Author Type: Registered Nurse Type: ED Notes Filed: 11/04/2021 7:51 PM Note Text: Report to Brett HEIN Normal [facility] ED NOTE HNO ID: [id number] Author: Simón Yoder RN Service: Emergency Medicine Author Type: Registered Nurse Type: ED Notes Filed: 11/04/2021 10:05 AM Note Text: Pt presented to ED for back and groin pain. Pt states I was seen for this and they did scans, but they can't figure out what is going on . NAD noted at this time. Normal [facility] ED PROV NOTEon 11-04-2021 ED PROV NOTE HNO ID: [id number] Author: Eugene Seo MD Service: Emergency Medicine [...] limits U (more content not included)... Normal [facility] ESR Westergren method (Bld) [Velocity]on 11-04-2021 ESR (Bld) [Velocity] 117 mm/h High 0-[address] [facility] Comment on above: Order Comment: Speci men Type: BLOOD SPECIMENOrdering Facility: [facility] Address: [address] [place] [address] Performed By: #### 4 537-7 ####[facility] LABCLIA [id number] [address] [place] [address] [place] HISTORY PHYSICALon HISTORY PHYSICAL HNO ID: [id number] Author: Beverly Noel MD Service: Hospital Medicine Author Type: Physician Type: HANDP Filed: 11/04/2021 9:32 PM Note Text: DEPARTMENT OF HOSPITAL MEDICINE HISTORY AND PHYSICAL EXAM SERVICE DATE: 11/04/2021 SERVICE TIME: 6:10 PM Primary Care Physician: Shaikh Quinton MD NIGHT AND WEEKEND COVERAGE: For issues tonight, please page [phone]. After 7:30am please page updated treatment team [...] IV morphine and bactrim PO. Admitted to [facility] for further management. PAST MEDICAL [...] back pain Inability to ambulate Presented to [facility] ER on 10/28/21 with groin pain, workup [...] for ?tendonitis (more content not included)... Normal [facility] NURSING PROGon 11-04-2021 NURSING PROG HNO ID: [id number] Author: Val Bruce, DIONE Service: Nursing Author Type: Registered Nurse Type: Nursing Progress Note Filed: 11/04/2021 8:35 PM Note Text: Nursing Progress Note Patient Name: Kenyetta Schumacher Patient Location: [facility] Transfer Note: Patient transferred into room/unit ATU-05 from ED Actions taken: bed in lowest position, call light within reach This note was completed by: Val Bruce Normal [facility] SARS-CoV-2 RNA Resp Ql ANDREA+p robeon 11-04-2021 SARS-CoV-2 (COVID-19) RNA ANDREA+probe Ql (Resp) COVID 19 RESULT: SARS-CoV-2 (Agent of COVID-19) Not Detected by RT-PCR or equivalent method. This test has been authorized by FDA under an Emergency Use Authorization (EUA). Normal [facility] Comment on above: Performed By: #### 9 4500-6 ####[facility] LABCLIA [id number] [place] [address] [place] US DOPPLER COMPLETEon 2021 US DOPPLER COMPLETE * * *Final Report* * * DATE OF EXAM: Nov 04 2021 2:58PM [facility] 10[facility] - US DOPPLER COMPLETE / PROCEDURE [...] testes with normal arterial and venous flow. Medical Assistant Float: KAHLIL Transcribe Date/Time: Nov 04 2021 3:11P Dictated by : DEMI JOHNSTON DO This examination was interpreted and the report reviewed and electronically signed by: ADALID EPPS MD on Nov 04 2021 3:19PM EST [id number] CN Normal [facility] US SCROTUM AND CONTENTSon US SCROTUM AND CONTENTS * * *Final Report* * * DATE OF EXAM: Nov 04 2021 2:50PM [facility] 1063 - US SCROTUM AND CONTENTS / [...] testes with normal arterial and venous flow. Medical Assistant Float: PSCB Transcribe Date/Time: Nov 04 2021 3:11P Dictated by : DEMI JOHNSTON DO This examination was interpreted and the report reviewed and electronically signed by: ADALID EPPS MD on Nov 04 2021 3:19PM EST [id number] CN Normal [facility] Urinalysis complete panel (U )on 11-04-2021 Bilirubin Ql (U) Negative Normal Negative [facility] Comment on above: Order Comment: Speci men Type: URINE SPECIMENOrdering Facility: [facility] Address: [address] [place], [place] [address] Performed By: #### 2 4356-8 ####[facility] LABCLIA [id number] [place] [address] [place] Clarity (Unsp spec) Clear Normal Clear [facility] Comment on above: Order Comment: Speci men Type: URINE SPECIMENOrdering Facility: [facility] Address: [address] [place], [place] [address] Performed By: #### 2 4356-8 ####[facility] LABIA [id number] [address] STATES [facility] Color (U) Light Yellow Normal Yellow [facility] Comment on above: Order Comment: Speci men Type: URINE SPECIMENOrdering Facility: [facility] Address: [address] [place] [address] Performed By: #### 2 4356-8 ####[facility] LABIA [id number] [place] [address] [place] Glucose Test strip (U) [Mass/Vol] Negative Normal Negative [facility] Comment on above: Order Comment: Speci men Type: URINE SPECIMENOrdering Facility: [facility] Address: [address] [place], [place] [address] Performed By: #### 2 4356-8 ####[facility] LABIA [id number] [place] [address] [place] Hemoglobin Ql (U) Negative Normal Negative [facility] Comment on above: Order Comment: Speci men Type: URINE SPECIMENOrdering Facility: [facility] Address: [address] [place], [place] [address] Performed By: #### 2 4356-8 ####[facility] LABCLIA [id number] [place] [address] [place] Hyaline casts (Urine sed) [#/Area] 1-3 /LPF Abnormal 0 /LPF [facility] Comment on above: Order Comment: Speci men Type: URINE SPECIMENOrdering Facility: [facility] Address: [address] [place], [place] [address] Performed By: #### 2 4356-8 ####[facility] LABCLIA [id number] [place] [address] [place] Ketones Ql (U) Negative Normal Negative [facility] Comment on above: Order Comment: Speci men Type: URINE SPECIMENOrdering Facility: [facility] Address: [address] [place] [address] Performed By: #### 2 4356-8 ####[facility] LABCLIA [id number] [place] [address] [place] Leukocyte esterase Test strip Ql (U) Negative Normal Negative [facility] Comment on above: Order Comment: Speci men Type: URINE SPECIMENOrdering Facility: [facility] Address: [address] [place], [place] [address] Performed By: #### 2 4356-8 ####[facility] LABCLIA [id number] [place] [address] [place] Nitrite Ql (U) Negative Normal Negative [facility] Comment on above: Order Comment: Speci men Type: URINE SPECIMENOrdering Facility: [facility] Address: [address] [place], [place] [address] Performed By: #### 2 4356-8 ####[facility] LABCLIA [id number] [place] [address] [place] pH (U) 5.0 [pH] Normal 5.0-8.0 [facility] Comment on above: Order Comment: Speci men Type: URINE SPECIMENOrdering Facility: [facility] Address: [address] [place], [place] [address] Performed By: #### 2 4356-8 ####[facility] LABCLIA [id number] [address] STATES OF [facility] Protein (U) [Mass/Vol] 2+ Abnormal Negative [facility] Comment on above: Order Comment: Speci men Type: URINE SPECIMENOrdering Facility: [facility] Address: [address] [place] [address] Performed By: #### 2 4356-8 ####[facility] LABCLIA [id number] [address] STATES OF [facility] RBC LM.HPF (Urine sed) [#/Area] 0-3 /HPF Normal 0-3 /HPF [facility] Comment on above: Order Comment: Speci men Type: URINE SPECIMENOrdering Facility: [facility] Address: [address] [place] [address] Performed By: #### 2 4356-8 ####[facility] LABIA [id number] [address] Specific gravity (U) [Rel density] 1.023 Normal 1.005-1.030 [facility] Comment on above: Order Comment: Speci men Type: URINE SPECIMENOrdering Facility: [facility] Address: [address] [place] [address] Performed By: #### 2 4356-8 ####[facility] LABCLIA [id number] [address] OF [facility] Urobilinogen Ql (U) Negative Normal Negative [facility] Comment on above: Order Comment: Speci men Type: URINE SPECIMENOrdering Facility: [facility] Address: [address] [place] [address] Performed By: #### 2 4356-8 ####[facility] LABCLIA [id number] [place] [address] [place] WBC LM.HPF (Urine sed) [#/Area] 0-5 /HPF Normal 0-5 /HPF [facility] Comment on above: Order Comment: Speci men Type: URINE SPECIMENOrdering Facility: [facility] Address: [address] [place] [address] [place] [address] Performed By: #### 2 4356-8 ####[facility] LABCLIA [id number] [address] [id number] [place] [id number] [place] ABD/PELVIS WO [...] GALILEO GARCIA Date: 2021-11-03 14:22 Normal [facility] Covid-19 PCR (CVDTB)on SARS-CoV-2 (COVID-19) RNA ANDREA+probe Ql (Unsp spec) Not detected Normal NOT DETECTED [facility] Comment on above: Result Comment: This test is not yet approved or cleared by the [place] FDA. When there are no FDA-approved or cleared tests available, and other criteria are met, FDA can make tests available under an emergency access mechanism called an Emergency Use Authorization (EUA). The EUA for this test is supported by the [employer] of Health and Human Service's (HHS's) declaration [...] SARS-CoV-2. Performed By: #### S EDR #### [facility] [address] [place] [address] Dr. Mary Lee MRI LSPINE WO CONon 11-04-19 MRI LSPINE WO CON EXAMINATION: MRI LSPINE WO CON HISTORY: Low back pain COMPARISON: [...] GALILEO GARCIA Date: 2021-11-03 13:16 Normal [facility] POINT OF CARE GLUCOSEon -0 Glucose [Mass/Vol] 181 mg/dL Critically high 74-106 [facility] Comment on above: Performed By: #### C RP, CMP #### [facility] [address] [place] [address] Dr. Mary Lee US SCROTUM W VASCULAR [...] GALILEO GARCIA Date: 2021-11-03 14:55 Normal [facility] CBC AUTO DIFFon 11-02-2021 BASO # 0.1 103/ul Normal 0.0-0.[address] [facility] Comment on above: Performed By: #### C RP, CMP #### [facility] [address] [place] [address] Dr. Mary Lee Basophils/100 WBC (Bld) 0.6 % Normal 0.2-2.[address] [facility] Comment on above: Performed By: #### C RP, CMP #### [facility] [address] [place] [address] Dr. Mary Lee EO # 0.2 103/ul Normal 0.0-0.[address] [facility] Comment on above: Performed By: #### C RP, CMP #### [facility] [address] [place] [address] Dr. Mary Lee Eosinophils/100 WBC (Bld) 1.9 % Normal 0.9-7.[address] [facility] Comment on above: Performed By: #### C RP, CMP #### [facility] [address] [place] [address] Dr. Mary Lee Erythrocyte distribution width (RBC) [Ratio] 14.7 % Normal 11.0-15.[address] [facility] Comment on above: Performed By: #### C RP, CMP #### [facility] [address] [place] [address] Dr. Mary Lee Hematocrit (Bld) [Volume fraction] 35.9 % Critically low 42.0-54.[address] [facility] Comment on above: Performed By: #### C RP, CMP #### [facility] [address] [place] [address] Dr. Mary Lee Hemoglobin (Bld) [Mass/Vol] 11.9 g/dL Critically low 14.0-18.[address] [facility] Comment on above: Performed By: #### C RP, CMP #### [facility] [address] [place] [address] Dr. Mary Lee IG # 0.04 10e3/ul Critically high 0.00-0.[address] [facility] Comment on above: Performed By: #### C RP, CMP #### [facility] [address] [place] [address] Dr. Mary Lee IG % 0.5 % Normal 0.0-0.[address] [facility] Comment on above: Performed By: #### C RP, CMP #### [facility] [address] [place] [address] Dr. Mary Lee LYMPH # 0.8 103/ul Critically low 1.2-3.8 [facility] Comment on above: Performed By: #### C RP, CMP #### [facility] [address] [place] [address] Dr. Mary Lee Lymphocytes/100 WBC (Bld) 10.1 % Critically low 20.5-60.[address] [facility] Comment on above: Performed By: #### C RP, CMP #### [facility] [address] [place] [address] Dr. Mary Lee MANUAL DIFF REQ NO Normal [facility] Comment on above: Performed By: #### C RP, CMP #### [facility] [address] [place] [address] Dr. Mary Lee MCH (RBC) [Entitic mass] 36.1 pg Critically high 25.9-34.[address] [facility] Comment on above: Performed By: #### C RP, CMP #### [facility] [address] [place] [address] Dr. Mary Lee MCHC (RBC) [Mass/Vol] 33.1 g/dL Normal 29.9-35.2 [facility] Comment on above: Performed By: #### C RP, CMP #### [facility] [address] [place] [address] Dr. Mary Lee MCV (RBC) [Entitic vol] 108.8 fL Critically high 80.0-94.[address] [facility] Comment on above: Performed By: #### C RP, CMP #### [facility] [address] [place] [address] Dr. Mary Lee MONO # 0.7 103/ul Normal 0.3-0.[address] [facility] Comment on above: Performed By: #### C RP, CMP #### [facility] [address] [place] [address] Dr. Mary Lee Monocytes/100 WBC (Bld) 8.1 % Normal 1.7-12.0 [facility] Comment on above: Performed By: #### C RP, CMP #### [facility] [address] [place] [address] Dr. Mary Lee NEUT # 6.6 103/ul Critically high 1.4-6.5 [facility] Comment on above: Performed By: #### C RP, CMP #### [facility] [address] [place] [address] Dr. Mary Lee Neutrophils/100 WBC (Bld) 78.8 % Critically high 43.0-75.[address] [facility] Comment on above: Performed By: #### C RP, CMP #### [facility] [address] [address] [address] Mary Lee Platelet mean volume (Bld) [Entitic vol] 9.3 fL Critically low 9.5-13.[address] [facility] Comment on above: Performed By: #### C RP, CMP #### [facility] [address] [place] [address] Dr. Mary Lee PLT 268 103/ul Normal 150-[address] [facility] Comment on above: Performed By: #### C RP, CMP #### [facility] [address] [address] [address] Mary Lee RBC 3.30 106/ul Critically low 4.70-6.10 [facility] Comment on above: Performed By: #### C RP, CMP #### [facility] [address] [address] [address] Mary Lee WBC 8.3 103/ul Normal 4.0-11.[address] [facility] Comment on above: Performed By: #### C RP, CMP #### [facility] [address] [place] [address] Dr. Mary Lee POINT OF CARE GLUCOSEon Glucose [Mass/Vol] 135 mg/dL Critically high 74-106 [facility] Comment on above: Performed By: #### S EDR #### [facility] [address] [place] [address] Dr. Mary Lee PROF 14(COMP METB)on 022 Albumin [Mass/Vol] 3.5 g/dL Normal 3.5-5.0 [facility] Comment on above: Performed By: #### C MP #### [facility] [address] [place] [address] Dr. Mary Lee Albumin/Globulin [Mass ratio] 0.8 {ratio} Normal [facility] Comment on above: Performed By: #### C MP #### [facility] [address] [place] [address] [address] Mary Lee ALP [Catalytic activity/Vol] 65 U/L Normal 38-126 [facility] Comment on above: Performed By: #### C MP #### [facility] [address] [place] [address] Dr. Mary Lee ALT [Catalytic activity/Vol] 22 U/L Normal 21-[address] [facility] Comment on above: Performed By: #### C MP #### [facility] [address] [address] [address] Mary Lee Anion gap [Moles/Vol] 12.7 mmol/L Normal [facility] Comment on above: Performed By: #### C MP #### [facility] [address] [place] [address] Dr. Mary Lee AST [Catalytic activity/Vol] 12 U/L Critically low 17-[address] [facility] Comment on above: Performed By: #### C MP #### [facility] [address] [place] [address] Dr. Mary Lee Bilirubin [Mass/Vol] 0.4 mg/dL Normal 0.2-1.3 [facility] Comment on above: Performed By: #### C MP #### [facility] [address] [place] [address] Dr. Mary Lee Calcium [Mass/Vol] 8.9 mg/dL Normal 8.4-10.2 [facility] Comment on above: Performed By: #### C MP #### [facility] [address] [place] [address] Dr. Mary Lee Chloride [Moles/Vol] 101 mmol/L Normal 98-107 [facility] Comment on above: Performed By: #### C MP #### [facility] [address] [place] [address] Dr. Mary Lee CO2 [Moles/Vol] 24.8 mmol/L Normal 22.0-30.0 [facility] Comment on above: Performed By: #### C MP #### [facility] [address] [place] [address] Dr. Mary Lee Creatinine [Mass/Vol] 2.03 mg/dL Critically high 0.66-1.[address] [facility] Comment on above: Performed By: #### C MP #### [facility] [address] [address] [address] Mary Lee EGFR-AF SAO TOMEAN 40 mL/min/1.73m2 Critically low >=[address] [facility] Comment on above: Performed By: #### C MP #### [facility] [address] [address] [address] Mary Lee EGFR-NON AF SAO TOMEAN 33 mL/min/1.73m2 Critically low >=[address] [facility] Comment on above: Performed By: #### C MP #### [facility] [address] [address] [address] Mary Lee Globulin (S) [Mass/Vol] 4.3 g/dL Normal [facility] Comment on above: Performed By: #### C MP #### [facility] [address] [address] [address] Mary Lee Glucose [Mass/Vol] 175 mg/dL Critically high 74-106 T [facility] Comment on above: Performed By: #### C MP #### [facility] [address] [address] [address] Mary Lee Potassium [Moles/Vol] 4.5 mmol/L Normal 3.4-5.[address] [facility] Comment on above: Performed By: #### C MP #### [facility] [address] [address] [address] Mary Lee Protein [Mass/Vol] 7.8 g/dL Normal 6.1-8.2 [facility] Comment on above: Performed By: #### C MP #### [facility] [address] [address] [address] Mary Lee Sodium [Moles/Vol] 134 mmol/L Critically low 137-145 Th [facility] Comment on above: Performed By: #### C MP #### [facility] [address] [address] [address] Mary Lee Urea nitrogen [Mass/Vol] 48.0 mg/dL Critically high 9.0-20.[address] [facility] Comment on above: Performed By: #### C MP #### [facility] [address] [place] [address] Dr. Mary Lee Urea nitrogen/Creatinine [Mass ratio] 23.6 mg/mg Normal [facility] Comment on above: Performed By: #### C MP #### [facility] [address] [place] [address] Dr. Mary Lee ER URINE PROFILEon 2 Bilirubin Ql (U) Negative Normal NEGATIVE [facility] Comment on above: Performed By: #### C RP, CMP #### [facility] [address] [place] [address] Dr. Mary Lee Clarity (U) CLEAR Normal CLEAR [facility] Comment on above: Performed By: #### C RP, CMP #### [facility] [address] [place] [address] Dr. Mary Lee Color (U) LT. YELLOW Normal YELLOW [facility] Comment on above: Performed By: #### C RP, CMP #### [facility] [address] [place] [address] Dr. Mary CRUZ A micrscopic examination will be performed if indicated. Normal [facility] Comment on above: Performed By: #### C RP, CMP #### [facility] [address] [place] [address] Dr. Mary Lee Glucose Ql (U) 100 mg/dl Abnormal NEGATIVE [facility] Comment on above: Performed By: #### C RP, CMP #### [facility] [address] [place] [address] Dr. Mary Lee Hemoglobin Ql (U) TRACE-INTACT Abnormal NEGATIVE [facility] Comment on above: Performed By: #### C RP, CMP #### [facility] [address] [place] [address] Dr. Mary Lee Ketones Ql (U) Negative Normal NEGATIVE [facility] Comment on above: Performed By: #### C RP, CMP #### [facility] [address] [place] [address] Dr. Mary Lee LEUKOCYTES Negative Normal NEGATIVE [facility] Comment on above: Performed By: #### C RP, CMP #### [facility] [address] [place] [address] Dr. Mary Lee Nitrite Ql (U) Negative Normal NEGATIVE [facility] Comment on above: Performed By: #### C RP, CMP #### [facility] [address] [place] [address] Dr. Mary Lee pH (U) 5.5 [pH] Normal 5-[address] [facility] Comment on above: Performed By: #### C RP, CMP #### [facility] [address] [place] [address] Dr. Mary Lee Protein (U) [Mass/Vol] 100 mg/dL Abnormal NEGATIVE/ TRACE [facility] Comment on above: Performed By: #### C RP, CMP #### [facility] [address] [place] [address] Dr. Mary Lee SPEC GRAVITY 1.025 Normal 1.005-<=1.025 [facility] Comment on above: Performed By: #### C RP, CMP #### [facility] [address] [place] [address] Dr. Mary Lee UR MICRO IND INDICATED Normal [facility] Comment on above: Performed By: #### C RP, CMP #### [facility] [address] [place] [address] Dr. Mary Lee Urobilinogen Qn (U) 0.2 {Ofelia'U}/dL Normal 0.2 - 1. [address] [facility] Comment on above: Performed By: #### C RP, CMP #### [facility] [address] [place] [address] Dr. Mary Lee URINE MICROSCOPIC ONLYon BACTERIA NONE SEEN Normal NONE SEEN [facility] Comment on above: Performed By: #### C RP, CMP #### [facility] [address] [place] [address] Dr. Mary Lee Bacteria identified Cx Nom (U) NOT INDICATED Normal [facility] Comment on above: Performed By: #### C RP, CMP #### [facility] [address] [place] [address] Dr. Mary Lee CAST SEEN Abnormal NONE SEEN [facility] Comment on above: Performed By: #### C RP, CMP #### [facility] [address] [place] [address] Dr. Mary Lee Crystals LM Nom (Urine sed) NONE SEEN Normal NONE SEEN [facility] Comment on above: Performed By: #### C RP, CMP #### [facility] [address] [place] [address] Dr. Mary Lee Epithelial cells LM Ql (Urine sed) RARE Normal NONE SEEN /RARE [facility] Comment on above: Performed By: #### C RP, CMP #### [facility] [address] [place] [address] Dr. Mary Lee MUCOUS TRACE Abnormal NONE SEEN [facility] Comment on above: Performed By: #### C RP, CMP #### [facility] [address] [place] [address] Dr. Mary Lee RBC NONE SEEN Abnormal 0-2 [facility] Comment on above: Performed By: #### C RP, CMP #### [facility] [address] [place] [address] Dr. Mary Lee WBC 0-2 Abnormal NONE SEEN [facility] Comment on above: Performed By: #### C RP, CMP #### [facility] [address] [place] [address] ABD/PELVIS WO CONon [...] LINDA PEREZ Date: 2021-10-28 22:21 Normal [facility] CBC AUTO DIFFon 10-28-2021 BASO # 0.1 103/ul Normal 0.0-0.[address] [facility] Comment on above: Performed By: #### S EDR #### [facility] [address] [place] [address] Dr. Mary Lee Basophils/100 WBC (Bld) 0.6 % Normal 0.2-2.0 [facility] Comment on above: Performed By: #### S EDR #### [facility] [address] [address] [address] Mary Lee EO # 0.2 103/ul Normal 0.0-0.[address] [facility] Comment on above: Performed By: #### S EDR #### [facility] [address] [address] [address] Mary Lee Eosinophils/100 WBC (Bld) 1.5 % Normal 0.9-7.[address] [facility] Comment on above: Performed By: #### S EDR #### [facility] [address] [place] [address] Dr. Mary Lee Erythrocyte distribution width (RBC) [Ratio] 15.0 % Normal 11.0-15.[address] [facility] Comment on above: Performed By: #### S EDR #### [facility] [address] [place] [address] Dr. Mary Lee Hematocrit (Bld) [Volume fraction] 37.8 % Critically low 42.0-54.[address] [facility] Comment on above: Performed By: #### S EDR #### [facility] [address] [place] [address] Dr. Mary Lee Hemoglobin (Bld) [Mass/Vol] 12.6 g/dL Critically low 14.0-18.[address] [facility] Comment on above: Performed By: #### S EDR #### [facility] [address] [place] [address] Dr. Mary Lee IG # 0.11 10e3/ul Critically high 0.00-0.[address] [facility] Comment on above: Performed By: #### S EDR #### [facility] [address] [place] [address] Dr. Mary Lee IG % 1.0 % Critically high 0.0-0.5 [facility] Comment on above: Performed By: #### S EDR #### [facility] [address] [place] [address] Dr. Mary Lee LYMPH # 1.2 103/ul Normal 1.2-3.[address] [facility] Comment on above: Performed By: #### S EDR #### [facility] [address] [place] [address] Dr. Mary Lee Lymphocytes/100 WBC (Bld) 11.2 % Critically low 20.5-60.[address] [facility] Comment on above: Performed By: #### S EDR #### [facility] [address] [place] [address] Dr. Mary Lee MANUAL DIFF REQ NO Normal [facility] Comment on above: Performed By: #### S EDR #### [facility] [address] [place] [address] Dr. Mary Lee MCH (RBC) [Entitic mass] 35.7 pg Critically high 25.9-34.[address] [facility] Comment on above: Performed By: #### S EDR #### [facility] [address] [place] [address] Dr. Mary Lee MCHC (RBC) [Mass/Vol] 33.3 g/dL Normal 29.9-35.2 [facility] Comment on above: Performed By: #### S EDR #### [facility] [address] [place] [address] Dr. Mary Lee MCV (RBC) [Entitic vol] 107.1 fL Critically high 80.0-94.[address] [facility] Comment on above: Performed By: #### S EDR #### [facility] [address] [place] [address] Dr. Mary Lee MONO # 0.9 103/ul Critically high 0.3-0.8 [facility] Comment on above: Performed By: #### S EDR #### [facility] [address] [place] [address] Dr. Mary Lee Monocytes/100 WBC (Bld) 8.1 % Normal 1.7-12.[address] [facility] Comment on above: Performed By: #### S EDR #### [facility] [address] [place] [address] Dr. Mary Lee NEUT # 8.2 103/ul Critically high 1.4-6.5 [facility] Comment on above: Performed By: #### S EDR #### [facility] [address] [place] [address] Dr. Mary Lee Neutrophils/100 WBC (Bld) 77.6 % Critically high 43.0-75.[address] [facility] Comment on above: Performed By: #### S EDR #### [facility] [address] [place] [address] Dr. Mary Lee Platelet mean volume (Bld) [Entitic vol] 9.7 fL Normal 9.5-13.[address] [facility] Comment on above: Performed By: #### S EDR #### [facility] [address] [place] [address] Dr. Mary Lee PLT 265 103/ul Normal 150-450 [facility] Comment on above: Performed By: #### S EDR #### [facility] [address] [place] [address] Dr. Mary Lee RBC 3.53 106/ul Critically low 4.70-6.10 [facility] Comment on above: Performed By: #### S EDR #### [facility] [address] [place] [address] Dr. Mary Lee WBC 10.6 103/ul Normal 4.0-11.[address] [facility] Comment on above: Performed By: #### S EDR #### [facility] [address] [place] [address] Dr. Mary Lee CRPon 10-28-2021 CRP 0.9 mg/dL Normal <=1.[address] [facility] Comment on above: Performed By: #### C RP, CMP #### [facility] [address] [place] [address] Dr. Mary Lee CULTURE BLOODon 10-28-2021 Microscopic examination of blood, culture Culture Observations: NO GROWTH AT 5 DAYS. Normal [facility] Comment on above: Performed By: #### C RP, CMP #### [facility] [address] [place] [address] Dr. Mary Lee ER URINE PROFILEon 2 Bilirubin Ql (U) Negative Normal NEGATIVE [facility] Comment on above: Performed By: #### C RP, CMP #### [facility] [address] [place] [address] Dr. Mary Lee Clarity (U) CLEAR Normal CLEAR [facility] Comment on above: Performed By: #### C RP, CMP #### [facility] [address] [place] [address] Dr. Mary Lee Color (U) LT. YELLOW Normal YELLOW [facility] Comment on above: Performed By: #### C RP, CMP #### [facility] [address] [place] [address] Dr. Mary CRUZ A micrscopic examination will be performed if indicated. Normal [facility] Comment on above: Performed By: #### C RP, CMP #### [facility] [address] [place] [address] Dr. Mary Lee Glucose Ql (U) 250 mg/dl Abnormal NEGATIVE [facility] Comment on above: Performed By: #### C RP, CMP #### [facility] [address] [place] [address] Dr. Mary Lee Hemoglobin Ql (U) Negative Normal NEGATIVE [facility] Comment on above: Performed By: #### C RP, CMP #### [facility] [address] [place] [address] Dr. Mary Lee Ketones Ql (U) Negative Normal NEGATIVE [facility] Comment on above: Performed By: #### C RP, CMP #### [facility] [address] [place] [address] Dr. Mary Lee LEUKOCYTES Negative Normal NEGATIVE [facility] Comment on above: Performed By: #### C RP, CMP #### [facility] [address] [place] [address] Dr. Mary Lee Nitrite Ql (U) Negative Normal NEGATIVE [facility] Comment on above: Performed By: #### C RP, CMP #### [facility] [address] [place] [address] Dr. Mary Lee pH (U) 5.5 [pH] Normal 5-9 [facility] Comment on above: Performed By: #### C RP, CMP #### [facility] [address] [place] [address] Dr. Mary Lee Protein (U) [Mass/Vol] 100 mg/dL Abnormal NEGATIVE/ TRACE [facility] Comment on above: Performed By: #### C RP, CMP #### [facility] [address] [place] [address] Dr. Mary Lee SPEC GRAVITY 1.025 Normal 1.005-<=1.025 [facility] Comment on above: Performed By: #### C RP, CMP #### [facility] [address] [place] [address] Dr. Mary Lee UR MICRO IND INDICATED Normal [facility] Comment on above: Performed By: #### C RP, CMP #### [facility] [address] [place] [address] Dr. Mary Lee Urobilinogen Qn (U) 0.2 {Ofelia'U}/dL Normal 0.2 - 1. [address] [facility] Comment on above: Performed By: #### C RP, CMP #### [facility] [address] [place] [address] Dr. Mary Lee LACTATE/LACTIC ACIDon 2021 Lactate [Moles/Vol] mmol/L Critically low 0.7-2.0 [facility] Comment on above: Performed By: #### L ACT #### [facility] [address] [place] [address] Dr. Mary Lee PROF 14(COMP METB)on 022 Albumin [Mass/Vol] 3.9 g/dL Normal 3.5-5.0 [facility] Comment on above: Performed By: #### C RP, CMP #### [facility] [address] [place] [address] Dr. Mary Lee Albumin/Globulin [Mass ratio] 1.0 {ratio} Normal [facility] Comment on above: Performed By: #### C RP, CMP #### [facility] [address] [place] [address] Dr. Mary Lee ALP [Catalytic activity/Vol] 65 U/L Normal 38-[address] [facility] Comment on above: Performed By: #### C RP, CMP #### [facility] [address] [place] [address] Dr. Mary Lee ALT [Catalytic activity/Vol] 32 U/L Normal 21-[address] [facility] Comment on above: Performed By: #### C RP, CMP #### [facility] [address] [address] [address] Mary Lee Anion gap [Moles/Vol] 17.0 mmol/L Normal [facility] Comment on above: Performed By: #### C RP, CMP #### [facility] [address] [address] [address] Mary Lee AST [Catalytic activity/Vol] 18 U/L Normal 17-[address] [facility] Comment on above: Performed By: #### C RP, CMP #### [facility] [address] [place] [address] Dr. Mary Lee Bilirubin [Mass/Vol] 0.4 mg/dL Normal 0.2-1.3 [facility] Comment on above: Performed By: #### C RP, CMP #### [facility] [address] [place] [address] Dr. Mary Lee Calcium [Mass/Vol] 9.7 mg/dL Normal 8.4-10.2 [facility] Comment on above: Performed By: #### C RP, CMP #### [facility] [address] [place] [address] Dr. Mary Lee Chloride [Moles/Vol] 105 mmol/L Normal 98-107 [facility] Comment on above: Performed By: #### C RP, CMP #### [facility] [address] [place] [address] Dr. Mary Lee CO2 [Moles/Vol] 19.9 mmol/L Critically low 22.0-30.0 [facility] Comment on above: Performed By: #### C RP, CMP #### [facility] [address] [place] [address] Dr. Mary Lee Creatinine [Mass/Vol] 2.12 mg/dL Critically high 0.66-1.25 [facility] Comment on above: Performed By: #### C RP, CMP #### [facility] [address] [place] [address] Dr. Mary Lee EGFR-AF SAO TOMEAN 38 mL/min/1.73m2 Critically low >=60 [facility] Comment on above: Performed By: #### C RP, CMP #### [facility] [address] [address] [address] Mary Lee EGFR-NON AF SAO TOMEAN 32 mL/min/1.73m2 Critically low >=[address] [facility] Comment on above: Performed By: #### C RP, CMP #### [facility] [address] [address] [address] Mary Lee Globulin (S) [Mass/Vol] 4.0 g/dL Normal [facility] Comment on above: Performed By: #### C RP, CMP #### [facility] [address] [address] [address] Mary Lee Glucose [Mass/Vol] 156 mg/dL Critically high 74-106 [facility] Comment on above: Performed By: #### C RP, CMP #### [facility] [address] [address] [address] Mary Lee Potassium [Moles/Vol] 4.9 mmol/L Normal 3.4-5.[address] [facility] Comment on above: Performed By: #### C RP, CMP #### [facility] [address] [address] [address] Mary Lee Protein [Mass/Vol] 7.9 g/dL Normal 6.1-8.2 [facility] Comment on above: Performed By: #### C RP, CMP #### [facility] [address] [place] [address] Dr. Mary Lee Sodium [Moles/Vol] 137 mmol/L Normal 137-145 [facility] Comment on above: Performed By: #### C RP, CMP #### [facility] [address] [address] [address] Mary Lee Urea nitrogen [Mass/Vol] 55.0 mg/dL Critically high 9.0-20.[address] [facility] Comment on above: Performed By: #### C RP, CMP #### [facility] [address] [address] [address] Mary Lee Urea nitrogen/Creatinine [Mass ratio] 25.9 mg/mg Normal [facility] Comment on above: Performed By: #### C RP, CMP #### [facility] [address] [place] [address] Dr. Mary Lee [facility] SED RATE 27 mm/hr Critically high <=20 [facility] Comment on above: Performed By: #### S EDR #### [facility] [address] [place] [address] Dr. Mary Lee URINE MICROSCOPIC ONLYon BACTERIA NONE SEEN Normal NONE SEEN [facility] Comment on above: Performed By: #### C RP, CMP #### [facility] [address] [place] [address] Dr. Mary Lee Bacteria identified Cx Nom (U) NOT INDICATED Normal [facility] Comment on above: Performed By: #### C RP, CMP #### [facility] [address] [place] [address] Dr. Mary Lee CAST NONE SEEN Normal NONE SEEN [facility] Comment on above: Performed By: #### C RP, CMP #### [facility] [address] [place] [address] Dr. Mary Lee Crystals LM Nom (Urine sed) NONE SEEN Normal NONE SEEN [facility] Comment on above: Performed By: #### C RP, CMP #### [facility] [address] [place] [address] Dr. Mary Lee Epithelial cells LM Ql (Urine sed) RARE Normal NONE SEEN /RARE [facility] Comment on above: Performed By: #### C RP, CMP #### [facility] [address] [place] [address] Dr. Mary Lee MUCOUS NONE SEEN Normal NONE SEEN [facility] Comment on above: Performed By: #### C RP, CMP #### [facility] [address] [place] [address] Dr. Mary Lee RBC 0-2 Normal 0-2 [facility] Comment on above: Performed By: #### C RP, CMP #### [facility] [address] [place] [address] Dr. Mary Lee WBC 0-2 Abnormal NONE SEEN [facility] Comment on above: Performed By: #### C RP, CMP #### [facility] [address] [address] [address] Mary Lee US SCROTUM W VASCULAR [...] JHON STOUT Date: 2021-10-28 21:18 Normal [facility] CBC AUTO DIFFon 10-13-2021 BASO # 0.1 103/ul Normal 0.0-0.[address] [facility] Comment on above: Performed By: #### C BC #### [facility] [address] [address] [address] Mary Lee Basophils/100 WBC (Bld) 0.9 % Normal 0.2-2.[address] [facility] Comment on above: Performed By: #### C BC #### [facility] [address] [address] [address] Mary Lee EO # 0.1 103/ul Normal 0.0-0.7 [facility] Comment on above: Performed By: #### C BC #### [facility] [address] [address] [address] Mary Lee Eosinophils/100 WBC (Bld) 2.2 % Normal 0.9-7.[address] [facility] Comment on above: Performed By: #### C BC #### [facility] [address] [place] [address] Dr. Mary Lee Erythrocyte distribution width (RBC) [Ratio] 15.1 % Critically high 11.0-15.[address] [facility] Comment on above: Performed By: #### C BC #### [facility] [address] [place] [address] Dr. Mary Lee Hematocrit (Bld) [Volume fraction] 37.0 % Critically low 42.0-54.[address] [facility] Comment on above: Performed By: #### C BC #### [facility] [address] [place] [address] Dr. Mary Lee Hemoglobin (Bld) [Mass/Vol] 12.4 g/dL Critically low 14.0-18.[address] [facility] Comment on above: Performed By: #### C BC #### [facility] [address] [place] [address] Dr. Mary Lee IG # 0.05 10e3/ul Critically high 0.00-0.03 [facility] Comment on above: Performed By: #### C BC #### [facility] [address] [place] [address] Dr. Mary Lee IG % 0.9 % Critically high 0.0-0.5 [facility] Comment on above: Performed By: #### C BC #### [facility] [address] [place] [address] Dr. Mary Lee LYMPH # 1.0 103/ul Critically low 1.2-3.8 [facility] Comment on above: Performed By: #### C BC #### [facility] [address] [address] [address] Mary Lee Lymphocytes/100 WBC (Bld) 16.9 % Critically low 20.5-60.[address] [facility] Comment on above: Performed By: #### C BC #### [facility] [address] [address] [address] Mary Lee MANUAL DIFF REQ NO Normal [facility] Comment on above: Performed By: #### C BC #### [facility] [address] [place] [address] Dr. Mary Lee MCH (RBC) [Entitic mass] 35.6 pg Critically high 25.9-34.0 [facility] Comment on above: Performed By: #### C BC #### [facility] [address] [place] [address] Dr. Mary Lee MCHC (RBC) [Mass/Vol] 33.5 g/dL Normal 29.9-35.2 [facility] Comment on above: Performed By: #### C BC #### [facility] [address] [place] [address] Dr. Mary Lee MCV (RBC) [Entitic vol] 106.3 fL Critically high 80.0-94.[address] [facility] Comment on above: Performed By: #### C BC #### [facility] [address] [place] [address] Dr. Mary Lee MONO # 0.5 103/ul Normal 0.3-0.8 [facility] Comment on above: Performed By: #### C BC #### [facility] [address] [place] [address] Dr. Mary Lee Monocytes/100 WBC (Bld) 8.4 % Normal 1.7-12.0 [facility] Comment on above: Performed By: #### C BC #### [facility] [address] [place] [address] Dr. Mary Lee NEUT # 4.1 103/ul Normal 1.4-6.5 [facility] Comment on above: Performed By: #### C BC #### [facility] [address] [address] [address] Mary Lee Neutrophils/100 WBC (Bld) 70.7 % Normal 43.0-75.[address] [facility] Comment on above: Performed By: #### C BC #### [facility] [address] [place] [address] Dr. Mary Lee Platelet mean volume (Bld) [Entitic vol] 9.9 fL Normal 9.5-13.[address] [facility] Comment on above: Performed By: #### C BC #### [facility] [address] [address] [address] Mary Lee PLT 248 103/ul Normal 150-[address] [facility] Comment on above: Performed By: #### C BC #### [facility] [address] [place] [address] Dr. Mary Lee RBC 3.48 106/ul Critically low 4.70-6.10 [facility] Comment on above: Performed By: #### C BC #### [facility] [address] [address] [address] Mary Lee WBC 5.8 103/ul Normal 4.0-11.0 [facility] Comment on above: Performed By: #### C BC #### [facility] [address] [address] [address] Mary Lee DIRECT LDLon 10-13-2021 Cholesterol in LDL [Mass/Vol] 43 mg/dL Normal [facility] Comment on above: Performed By: #### D LDL, LIPID, CMP #### [facility] [address] [place] [address] Dr. Mary Lee DLDL NORMAL SEE BELOW Normal [facility] Comment on above: Result Comment: <100 mg/dl OPTIMAL 100 - 129 mg/dl NEAR OR ABOVE OPTIMAL 130 - 159 mg/dl BORDERLINE HIGH 160 - 189 mg/dl HIGH >190 mg/dl VERY HIGH Performed By: #### D LDL, LIPID, CMP #### [facility] [address] [place] [address] Dr. Mary Lee GLYCOHEMOGLOBIN A1Con 2021 ADA RECOMMENDATION ADA THERAPEUTIC TARGET 6.0 - 7.0 ACTION SUGGESTED > 7.[address] [facility] Comment on above: Performed By: #### S EDR #### [facility] [address] [address] [address] Mary Lee Glucose [Mass/Vol] 237 mg/dL Normal [facility] Comment on above: Performed By: #### S EDR #### [facility] [address] [address] [address] Mary Lee HbA1c (Bld) [Mass fraction] 9.9 % Critically high <=6.[address] [facility] Comment on above: Performed By: #### S EDR #### [facility] [address] [address] [address] Mary Lee LIPID PROFILEon 10-13-2021 CHOL-HDL RATIO NORM SEE BELOW Normal [facility] Comment on above: Result Comment: 3.3 - 4.4 LOW RISK 4.4 - 7.1 AVERAGE RISK 7.1 - 11.0 MODERATE RISK >11.0 HIGH RISK Performed By: #### D LDL, LIPID, CMP #### [facility] [address] [address] [address] Mary Lee Cholesterol [Mass/Vol] 147 mg/dL Normal <=[address] [facility] Comment on above: Performed By: #### D LDL, LIPID, CMP #### [facility] [address] [address] [address] Mary Lee Cholesterol in HDL [Mass/Vol] 25 mg/dL Normal [facility] Comment on above: Performed By: #### D LDL, LIPID, CMP #### [facility] [address] [address] [address] Mary Lee Cholesterol.total/Ch olesterol in HDL [Mass ratio] 5.9 {ratio} Normal [facility] Comment on above: Performed By: #### D LDL, LIPID, CMP #### [facility] [address] [address] [address] Mary Lee HDL NORMAL > or = 60 mg/dl - LOW CARDIOVASCULAR RISK <40 mg/dl - HIGH CARDIOVASCULAR RISK Normal [facility] Comment on above: Performed By: #### D LDL, LIPID, CMP #### [facility] [address] [address] [address] Mary Lee LDL CALC NORMAL SEE BELOW Normal [facility] Comment on above: Result Comment: <100 mg/dl OPTIMAL 100 - 129 mg/dl NEAR OR ABOVE OPTIMAL 130 - 159 mg/dl BORDERLINE HIGH 160 - 189 mg/dl HIGH >190 mg/dl VERY HIGH Performed By: #### D LDL, LIPID, CMP #### [facility] [address] [address] [address] Mary Lee Triglyceride [Mass/Vol] 598 mg/dL Critically high <=[address] [facility] Comment on above: Performed By: #### D LDL, LIPID, CMP #### [facility] [address] [address] [address] Mary Lee PROF 14(COMP METB)on 10-13- 022 Albumin [Mass/Vol] 3.8 g/dL Normal 3.5-5.0 [facility] Comment on above: Performed By: #### D LDL, LIPID, CMP #### [facility] [address] [place] [address] Dr. Mary Lee Albumin/Globulin [Mass ratio] 0.9 {ratio} Normal [facility] Comment on above: Performed By: #### D LDL, LIPID, CMP #### [facility] [address] [address] [address] Mary Lee ALP [Catalytic activity/Vol] 71 U/L Normal 38-126 [facility] Comment on above: Performed By: #### D LDL, LIPID, CMP #### [facility] [address] [address] [address] Mary Lee ALT [Catalytic activity/Vol] 31 U/L Normal 21-[address] [facility] Comment on above: Performed By: #### D LDL, LIPID, CMP #### [facility] [address] [address] [address] Mary Lee Anion gap [Moles/Vol] 12.2 mmol/L Normal [facility] Comment on above: Performed By: #### D LDL, LIPID, CMP #### [facility] [address] [address] [address] Mary Lee AST [Catalytic activity/Vol] 14 U/L Critically low 17-59 [facility] Comment on above: Performed By: #### D LDL, LIPID, CMP #### [facility] [address] [address] [address] Mary Lee Bilirubin [Mass/Vol] 0.5 mg/dL Normal 0.2-1.3 [facility] Comment on above: Performed By: #### D LDL, LIPID, CMP #### [facility] [address] [address] [address] Mary Lee Calcium [Mass/Vol] 9.3 mg/dL Normal 8.4-10.2 [facility] Comment on above: Performed By: #### D LDL, LIPID, CMP #### [facility] [address] [address] [address] Mary Lee Chloride [Moles/Vol] 105 mmol/L Normal 98-[address] [facility] Comment on above: Performed By: #### D LDL, LIPID, CMP #### [facility] [address] [address] [address] Mary Lee CO2 [Moles/Vol] 23.7 mmol/L Normal 22.0-30.0 [facility] Comment on above: Performed By: #### D LDL, LIPID, CMP #### [facility] [address] [address] [address] Mary Lee Creatinine [Mass/Vol] 1.62 mg/dL Critically high 0.66-1.[address] [facility] Comment on above: Performed By: #### D LDL, LIPID, CMP #### [facility] [address] [address] [address] Mary Lee EGFR-AF SAO TOMEAN 52 mL/min/1.73m2 Critically low >=60 [facility] Comment on above: Performed By: #### D LDL, LIPID, CMP #### [facility] [address] [address] [address] Mary Lee EGFR-NON AF SAO TOMEAN 43 mL/min/1.73m2 Critically low >=60 [facility] Comment on above: Performed By: #### D LDL, LIPID, CMP #### [facility] [address] [address] [address] Mary Lee Globulin (S) [Mass/Vol] 4.0 g/dL Normal [facility] Comment on above: Performed By: #### D LDL, LIPID, CMP #### [facility] [address] [address] [address] Mary Lee Glucose [Mass/Vol] 231 mg/dL Critically high 74-106 [facility] Comment on above: Performed By: #### D LDL, LIPID, CMP #### [facility] [address] [address] [address] Mary Lee Potassium [Moles/Vol] 3.9 mmol/L Normal 3.4-5.[address] [facility] Comment on above: Performed By: #### D LDL, LIPID, CMP #### [facility] [address] [place] [address] Dr. Mary Lee Protein [Mass/Vol] 7.8 g/dL Normal 6.1-8.2 [facility] Comment on above: Performed By: #### D LDL, LIPID, CMP #### [facility] [address] [place] [address] Dr. Mary Lee Sodium [Moles/Vol] 137 mmol/L Normal 137-145 [facility] Comment on above: Performed By: #### D LDL, LIPID, CMP #### [facility] [address] [place] [address] Dr. Mary Lee Urea nitrogen [Mass/Vol] 30.0 mg/dL Critically high 9.0-20.[address] [facility] Comment on above: Performed By: #### D LDL, LIPID, CMP #### [facility] [address] [place] [address] Dr. Mary Lee Urea nitrogen/Creatinine [Mass ratio] 18.5 mg/mg Normal [facility] Comment on above: Performed By: #### D LDL, LIPID, CMP #### [facility] [address] [place] [address] Dr. Mary Lee CBC (INCLUDES DIFF/PLT)on Basophils (Bld) [#/Vol] 0.062 10*3/uL Normal 0-200 [facility] Comment on above: Performed By: #### 1 0231, 6399, 7600 #### [facility] [address] [place] [address] [employer]: Cam Karimi MD Basophils/100 WBC (Bld) 1.0 % Normal [facility] Comment on above: Performed By: #### 1 0231, 63, 7600 #### [facility] [place] [address] [employer]: Cam Karimi MD Eosinophils (Bld) [#/Vol] 0.18 10*3/uL Normal 15-500 [facility] Comment on above: Performed By: #### 1 023, 63, 7600 #### [facility] [address] [place] [address] [employer]: Cam Karimi MD Eosinophils/100 WBC (Bld) 2.9 % Normal [facility] Comment on above: Performed By: #### 1 023, 63, 7600 #### [facility] [place] [address] [employer]: Cam Karimi MD Erythrocyte distribution width (RBC) [Ratio] 14.9 % Normal 11.0-15.0 [facility] Comment on above: Performed By: #### 1 0231, 63, 7600 #### [facility] [place] [address] [employer]: Cam Karimi MD Hematocrit (Bld) [Volume fraction] 39.0 % Normal 38.5-50.0 [facility] Comment on above: Performed By: #### 1 0231, 6399, 7600 #### [facility] [place] [address] [employer]: Cam Karimi MD Hemoglobin (Bld) [Mass/Vol] 13.7 g/dL Normal 13.2-17.1 [facility] Comment on above: Performed By: #### 1 023, 63, 7600 #### [facility] [place] [address] [employer]: Cam Karimi MD Lymphocytes (Bld) [#/Vol] 1.166 10*3/uL Normal 850-3900 [facility] Comment on above: Performed By: #### 1 023, 63, 7600 #### [facility] [place] [address] [employer]: Cam Karimi MD Lymphocytes/100 WBC (Bld) 18.8 % Normal [facility] Comment on above: Performed By: #### 1 230, 63, 7600 #### [facility] [place] [address] [employer]: Cam Karimi MD MCH (RBC) [Entitic mass] 36.7 pg High 27.0-33.0 [facility] Comment on above: Performed By: #### 1 230, 63, 7600 #### [facility] [place] [address] [employer]: Cam Karimi MD MCHC (RBC) [Mass/Vol] 35.1 g/dL Normal 32.0-36.0 [facility] Comment on above: Performed By: #### 1 230, 63, 7600 #### [facility] [place] [address] [employer]: Cam Karimi MD MCV (RBC) [Entitic vol] 104.6 fL High 80.0-100.0 [facility] Comment on above: Performed By: #### 1 023, 63, 7600 #### [facility] [place] [address] [employer]: Cam Karimi MD Monocytes (Bld) [#/Vol] 0.626 10*3/uL Normal 200-950 [facility] Comment on above: Performed By: #### 1 0231, 63, 7600 #### [facility] [place] [address] [employer]: Cam Karimi MD Monocytes/100 WBC (Bld) 10.1 % Normal [facility] Comment on above: Performed By: #### 1 0231, 63, 7600 #### [facility] [place] [address] [employer]: Cam Karimi MD Neutrophils (Bld) [#/Vol] 4.166 10*3/uL Normal 5898-7318 [facility] Comment on above: Performed By: #### 1 0231, 63, 7600 #### [facility] [place] [address] [employer]: Cam Karimi MD Neutrophils/100 WBC (Bld) 67.2 % Normal [facility] Comment on above: Performed By: #### 1 0231, 63, 7600 #### [facility] [place] [address] [employer]: Cam Karimi MD Platelet mean volume (Bld) [Entitic vol] 10.6 fL Normal 7.5-12.5 [facility] Comment on above: Performed By: #### 1 0231, 63, 7600 #### [facility] [place] [address] [employer]: Cam Karimi MD Platelets (Bld) [#/Vol] 260 10*3/uL Normal 140-400 [facility] Comment on above: Performed By: #### 1 0231, 63, 7600 #### [facility] [place] [address] [employer]: Cam Karimi MD RBC (Bld) [#/Vol] 3.73 10*6/uL Low 4.20-5.80 [facility] Comment on above: Performed By: #### 1 0231, 63, 7600 #### [facility] of [address], [address] [place] [address] [employer]: Cam Karimi MD WBC (Bld) [#/Vol] 6.2 10*3/uL Normal 3.8-10.8 [facility] Comment on above: Performed By: #### 1 0231, 6399, 7600 #### [facility] of [address], [address] [place] [address] [employer]: Cam Karimi MD [facility] 01-13-2021 Albumin [Mass/Vol] 4.5 g/dL Normal 3.6-5.1 [facility] Comment on above: Performed By: #### 1 0231, 6399, 7600 #### [facility] of [address], [address] [place] [address] [employer]: Cam Karimi MD Albumin/Globulin [Mass ratio] 1.5 {ratio} Normal 1.0-2.5 [facility] Comment on above: Performed By: #### 1 0231, 6399, 7600 #### [facility] of [address], [address] [place] [address] [employer]: Cam Karimi MD ALP [Catalytic activity/Vol] 48 U/L Normal 35-144 [facility] Comment on above: Performed By: #### 1 0231, 6399, 7600 #### [facility] [address] [place] [address] [employer]: Cam Karimi MD ALT [Catalytic activity/Vol] 19 U/L Normal 9-46 [facility] Comment on above: Performed By: #### 1 0231, 6399, 7600 #### [facility] [address] [place] [address] [employer]: Cam Karimi MD AST [Catalytic activity/Vol] 15 U/L Normal 10-35 [facility] Comment on above: Performed By: #### 1 0231, 6399, 7600 #### [facility] of [address] [place] [address] [employer]: Cam Karimi MD Bilirubin [Mass/Vol] 0.5 mg/dL Normal 0.2-1.2 [facility] Comment on above: Performed By: #### 1 0231, 6399, 7600 #### [facility] [place] [address] [employer]: Cam Karimi MD Calcium [Mass/Vol] 9.6 mg/dL Normal 8.6-10.3 [facility] Comment on above: Performed By: #### 1 0231, 63, 7600 #### [facility] [address] [address] [employer]: Cam Karimi MD Chloride [Moles/Vol] 111 mmol/L High 98-110 [facility] Comment on above: Performed By: #### 1 0231, 63, 7600 #### [facility] [address] [address] [employer]: Cam Karimi MD CO2 [Moles/Vol] 19 mmol/L Low 20-32 [facility] Comment on above: Performed By: #### 1 0231, 63, 7600 #### [facility] [place] [address] [employer]: Cam Karimi MD Creatinine [Mass/Vol] 1.69 mg/dL High 0.70-1.25 [facility] Comment on above: Result Comment: For patients >49 years of age, the reference limit for Creatinine is approximately 13% higher for people identified as -Citizen Of [place]. Performed By: #### 1 0231, 63, 7600 #### [facility] [place] [address] [employer]: Cam Karimi MD eGFR NON-AFR. SAO TOMEAN 42 mL/min/1.73m2 Low > OR = 60 [facility] Comment on above: Performed By: #### 1 0231, 6399, 7600 #### [facility] [place] [address] [place] [address] [employer]: Cam Karimi MD GFR/1.73 sq M.predicted among blacks MDRD (S/P/Bld) [Vol rate/Area] 49 mL/min/{1.73_m2} Low > OR = 60 [facility] Comment on above: Performed By: #### 1 0231, 63, 7600 #### [facility] [place] [address] [employer]: Cam Karimi MD Globulin (S) [Mass/Vol] 3.0 g/dL Normal 1.9-3.7 [facility] Comment on above: Performed By: #### 1 0231, 63, 7600 #### [facility] [place] [address] [employer]: Cam Karimi MD Glucose [Mass/Vol] 147 mg/dL High 65-99 [facility] Comment on above: Result Comment: Fasting reference interval For someone without known diabetes, a glucose value >125 mg/dL indicates that they may have diabetes and this should be confirmed with a follow-up test. Performed By: #### 1 0231, 63, 7600 #### [facility] [address] [address] [employer]: Cam Karimi MD Potassium [Moles/Vol] 4.7 mmol/L Normal 3.5-5.3 [facility] Comment on above: Performed By: #### 1 023, 63, 7600 #### [facility] [place] [address] [employer]: Cam Karimi MD Protein [Mass/Vol] 7.5 g/dL Normal 6.1-8.1 [facility] Comment on above: Performed By: #### 1 0231, 6399, 7600 #### [facility] [place] [address] [employer]: Cam Karimi MD Sodium [Moles/Vol] 139 mmol/L Normal 135-146 [facility] Comment on above: Performed By: #### 1 0231, 6399, 7600 #### [facility] of [address], [address] [place] [address] [employer]: Cam Karimi MD Urea nitrogen [Mass/Vol] 43 mg/dL High 7-25 [facility] Comment on above: Performed By: #### 1 0231, 6399, 7600 #### [facility] of [address], [address] [place] [address] [employer]: Cam Karimi MD Urea nitrogen/Creatinine [Mass ratio] 25 mg/mg High 6-22 [facility] Comment on above: Performed By: #### 1 0231, 6399, 7600 #### [facility] of [address] [place] [address] [employer]: Cam Karimi MD LIPID PANEL, [address] Cholesterol [Mass/Vol] 149 mg/dL Normal <200 [facility] Comment on above: Performed By: #### 1 0231, 6399, 7600 #### [facility] [address] [place] [address] [employer]: Cam Karimi MD Cholesterol in HDL [Mass/Vol] 28 mg/dL Low > OR = 40 [facility] Comment on above: Performed By: #### 1 0231, 6399, 7600 #### [facility] [place] [address] [employer]: Cam Karimi MD Cholesterol in LDL [Mass/Vol] [...] equation in the estimation of LDL-C. Sy HENDERSON et al. DAVID. 2013;310(19): 6805-6389 (http://education.[employer]faq/TRC434) Performed By: #### 1 230, 63, 7600 #### [facility] [address], [address] [place] [address] [employer]: Cam Karimi MD Cholesterol.total/Ch olesterol in HDL [Mass ratio] 5.3 {ratio} High <5.0 [facility] Comment on above: Performed By: #### 1 230, 63, 7600 #### [facility] [address], [address] [place] [address] [employer]: Cam Karimi MD NON HDL CHOLESTEROL 121 mg/dL (calc) Normal <130 [facility] Comment on above: Result Comment: For patients with diabetes plus 1 major ASCVD risk factor, treating to a non-HDL-C goal of <100 mg/dL (LDL-C of <70 mg/dL) is considered a therapeutic option. Performed By: #### 1 230, 99, 8290 #### [facility] [address], [address] [place] [address] [employer]: Cam Karimi MD Triglyceride [Mass/Vol] 353 mg/dL High <150 [facility] Comment on above: Result Comment: If a non-fasting specimen was collected, consider repeat triglyceride testing on a fasting specimen if clinically indicated. Clifford et al. J. of Clin. Lipidol. 2015;9:129-169. Performed By: #### 1 230, 49, 7600 #### [facility] [address], [address] [place] [address] [employer]: Cam Karimi MD CBC AUTO DIFFon 12-22-2020 BASO # 0.1 103/ul Normal 0.0-0.[address] [facility] Comment on above: Performed By: #### C BC #### [facility] [address] [place], [place] [address] Tom Morris Basophils/100 WBC (Bld) 1.0 % Normal 0.2-2.[address] [facility] Comment on above: Performed By: #### C BC #### [facility] [address] [id number] Tom Alexandra EO # 0.2 103/ul Normal 0.0-0.7 [facility] Comment on above: Performed By: #### C BC #### [facility] [address] [place], [place] [id number] Tom Alexandra Eosinophils/100 WBC (Bld) 2.3 % Normal 0.9-7.0 [facility] Comment on above: Performed By: #### C BC #### [facility] [address] [place] [address] Tom Alexandra Erythrocyte distribution width (RBC) [Ratio] 14.8 % Normal 11.0-15.0 [facility] Comment on above: Performed By: #### C BC #### [facility] [address] [place] [address] Tom Alexandra Hematocrit (Bld) [Volume fraction] 37.5 % Critically low 42.0-54.0 [facility] Comment on above: Performed By: #### C BC #### [facility] [address] [place], [place] [id number] Tom Alexandra Hemoglobin (Bld) [Mass/Vol] 12.8 g/dL Critically low 14.0-18.0 [facility] Comment on above: Performed By: #### C BC #### [facility] [address] [place] [address] Tom Alexandra IG # 0.05 10e3/ul Critically high 0.00-0.03 [facility] Comment on above: Performed By: #### C BC #### [facility] [address] [place] [address] Tom Alexandra IG % 0.7 % Critically high 0.0-0.5 [facility] Comment on above: Performed By: #### C BC #### [facility] [address] [place], [place] [id number] Tom Alexandra LYMPH # 1.3 103/ul Normal 1.2-3.8 [facility] Comment on above: Performed By: #### C BC #### [facility] [address] [place] [address] Tom Morris Lymphocytes/100 WBC (Bld) 17.9 % Critically low 20.5-60.[address] [facility] Comment on above: Performed By: #### C BC #### [facility] [address] [place] [address] Tom Morris MANUAL DIFF REQ NO Normal [facility] Comment on above: Performed By: #### C BC #### [facility] [address] [place] [address] Tomalberto Morris MCH (RBC) [Entitic mass] 36.4 pg Critically high 25.9-34.0 [facility] Comment on above: Performed By: #### C BC #### [facility] [address] [place] [address] Tom Morris MCHC (RBC) [Mass/Vol] 34.1 g/dL Normal 29.9-35.2 [facility] Comment on above: Performed By: #### C BC #### [facility] [address] [place] [address] Tomalberto Morris MCV (RBC) [Entitic vol] 106.5 fL Critically high 80.0-94.0 [facility] Comment on above: Result Comment: macr ocytosis 3+; teardrop cells 1+ Performed By: #### C BC #### [facility] [address] [place] [address] Tom Pereaen MONO # 0.6 103/ul Normal 0.3-0.8 [facility] Comment on above: Performed By: #### C BC #### [facility] [address] [place] [address] Tom Morris Monocytes/100 WBC (Bld) 8.0 % Normal 1.7-12.0 [facility] Comment on above: Performed By: #### C BC #### [facility] [address] [place] [address] Tom Alexandra NEUT # 4.9 103/ul Normal 1.4-6.5 [facility] Comment on above: Performed By: #### C BC #### [facility] [address] [place] [address] Tom Morris Neutrophils/100 WBC (Bld) 70.1 % Normal 43.0-75.[address] [facility] Comment on above: Performed By: #### C BC #### [facility] [address] [id number] Tom Morris Platelet mean volume (Bld) [Entitic vol] 10.3 fL Normal 9.5-13.[address] [facility] Comment on above: Performed By: #### C BC #### [facility] [address] [id number] Tom Morris PLT 257 103/ul Normal 150-450 [facility] Comment on above: Performed By: #### C BC #### [facility] [address] [id number] Tom Morris RBC 3.52 106/ul Critically low 4.70-6.10 [facility] Comment on above: Performed By: #### C BC #### [facility] [address] [id number] Tom Morris WBC 7.0 103/ul Normal 4.0-11.[address] [facility] Comment on above: Performed By: #### C BC #### [facility] [address] [id number] Tom Morris DIRECT LDLon 12-22-2020 Cholesterol in LDL [Mass/Vol] 57 mg/dL Normal [facility] Comment on above: Performed By: #### S EDR #### [facility] [id number] Mary Lee DLDL NORMAL SEE BELOW Normal [facility] Comment on above: Result Comment: <100 mg/dl OPTIMAL 100 - 129 mg/dl NEAR OR ABOVE OPTIMAL 130 - 159 mg/dl BORDERLINE HIGH 160 - 189 mg/dl HIGH >190 mg/dl VERY HIGH Performed By: #### S EDR #### [facility] [address] [place], [place] [id number] Dr. Mary Lee LIPID PROFILEon 12-22-2020 CHOL-HDL RATIO NORM SEE BELOW Normal [facility] Comment on above: Result Comment: 3.3 - 4.4 LOW RISK 4.4 - 7.1 AVERAGE RISK 7.1 - 11.0 MODERATE RISK >11.0 HIGH RISK Performed By: #### S EDR #### [facility] [address] [place] [address] Dr. Mary Lee Cholesterol [Mass/Vol] 139 mg/dL Normal <=[address] [facility] Comment on above: Performed By: #### S EDR #### [facility] [address] [address] [address] Mary Lee Cholesterol in HDL [Mass/Vol] 21 mg/dL Normal [facility] Comment on above: Performed By: #### S EDR #### [facility] [address] [place] [address] Dr. Mary Lee Cholesterol.total/Ch olesterol in HDL [Mass ratio] 6.6 {ratio} Normal [facility] Comment on above: Performed By: #### S EDR #### [facility] [address] [place] [address] Dr. Mary Lee HDL NORMAL > or = 60 mg/dl - LOW CARDIOVASCULAR RISK <40 mg/dl - HIGH CARDIOVASCULAR RISK Normal [facility] Comment on above: Performed By: #### S EDR #### [facility] [address] [place] [address] Dr. Mary Lee LDL CALC NORMAL SEE BELOW Normal [facility] Comment on above: Result Comment: <100 mg/dl OPTIMAL 100 - 129 mg/dl NEAR OR ABOVE OPTIMAL 130 - 159 mg/dl BORDERLINE HIGH 160 - 189 mg/dl HIGH >190 mg/dl VERY HIGH Performed By: #### S EDR #### [facility] [address] [place] [address] Dr. Mary Lee Triglyceride [Mass/Vol] 652 mg/dL Critically high <=[address] [facility] Comment on above: Performed By: #### S EDR #### [facility] [address] [place] [address] Dr. Mary Lee PROF 14(COMP METB)on 021 Albumin [Mass/Vol] 3.9 g/dL Normal 3.5-5.0 [facility] Comment on above: Performed By: #### S EDR #### [facility] [address] [address] [address] Mary Lee Albumin/Globulin [Mass ratio] 1.0 {ratio} Normal [facility] Comment on above: Performed By: #### S EDR #### [facility] [address] [address] [address] Mary Lee ALP [Catalytic activity/Vol] 47 U/L Normal 38-[address] [facility] Comment on above: Performed By: #### S EDR #### [facility] [address] [address] [address] Mary Lee ALT [Catalytic activity/Vol] 27 U/L Normal 21-[address] [facility] Comment on above: Performed By: #### S EDR #### [facility] [address] [address] [address] Mary Lee Anion gap [Moles/Vol] 16.0 mmol/L Normal [facility] Comment on above: Performed By: #### S EDR #### [facility] [address] [address] [address] Mary Lee AST [Catalytic activity/Vol] 16 U/L Critically low 17-[address] [facility] Comment on above: Performed By: #### S EDR #### [facility] [address] [address] [address] Mary Lee Bilirubin [Mass/Vol] 0.4 mg/dL Normal 0.2-1.[address] [facility] Comment on above: Performed By: #### S EDR #### [facility] [address] [address] [address] Mary Lee Calcium [Mass/Vol] 9.1 mg/dL Normal 8.4-10.2 [facility] Comment on above: Performed By: #### S EDR #### [facility] [address] [address] [address] Mary Lee Chloride [Moles/Vol] 108 mmol/L Critically high 98-[address] [facility] Comment on above: Performed By: #### S EDR #### [facility] [address] [address] [address] Mary Lee CO2 [Moles/Vol] 20.5 mmol/L Critically low 22.0-30.[address] [facility] Comment on above: Performed By: #### S EDR #### [facility] [address] [address] [address] Mary Lee Creatinine [Mass/Vol] 1.78 mg/dL Critically high 0.66-1.[address] [facility] Comment on above: Performed By: #### S EDR #### [facility] [address] [address] [address] Mary Lee EGFR-AF SAO TOMEAN 47 mL/min/1.73m2 Critically low >=[address] [facility] Comment on above: Performed By: #### S EDR #### [facility] [address] [place] [address] Dr. Mary Lee EGFR-NON AF SAO TOMEAN 39 mL/min/1.73m2 Critically low >=[address] [facility] Comment on above: Performed By: #### S EDR #### [facility] [address] [address] [address] Mary Lee Globulin (S) [Mass/Vol] 4.0 g/dL Normal [facility] Comment on above: Performed By: #### S EDR #### [facility] [address] [address] [address] Mary Lee Glucose [Mass/Vol] 131 mg/dL Critically high 74-106 [facility] Comment on above: Performed By: #### S EDR #### [facility] [address] [address] [address] Mary Lee Potassium [Moles/Vol] 4.5 mmol/L Normal 3.4-5.[address] [facility] Comment on above: Performed By: #### S EDR #### [facility] [address] [address] [address] Mary Lee Protein [Mass/Vol] 7.9 g/dL Normal 6.1-8.2 [facility] Comment on above: Performed By: #### S EDR #### [facility] [address] [address] [address] Mary Lee Sodium [Moles/Vol] 140 mmol/L Normal 137-145 [facility] Comment on above: Performed By: #### S EDR #### [facility] [address] [address] [address] Mary Lee Urea nitrogen [Mass/Vol] 44.0 mg/dL Critically high 9.0-20.[address] [facility] Comment on above: Performed By: #### S EDR #### [facility] [address] [address] [address] Mary Lee Urea nitrogen/Creatinine [Mass ratio] 24.7 mg/mg Normal [facility] Comment on above: Performed By: #### S EDR #### [facility] [address] [address] [address] Mary Lee Vital Signs Date Time Vital Sign Value Performing Clinician Facility 02-08-2024 15:10-0400 Diastolic blood pressure 68 mm[Hg] Steve Kirnus [facility] 02-08-2024 15:10-0400 Heart rate 90 /min [facility] [facility] 02-08-2024 15:10-0400 SaO2% (BldA) [Mass fraction] 96 % Steve Kirnus [facility] 02-08-2024 15:10-0400 Systolic blood pressure 124 mm[Hg] Steve InToTallynus [facility] 12-05-2023 08:00-0400 Diastolic blood pressure 67 mm[Hg] MD Raul Byrd Work Phone: 12-05-2023 08:00-0400 Heart rate 73 /min MD Raul Byrd Work Phone: 12-05-2023 08:00-0400 Respiratory rate 16 /min MD Raul Byrd Work Phone: 12-05-2023 08:00-0400 SaO2% (BldA) [Mass fraction] 98 % MD Raul Byrd Work Phone: 12-05-2023 08:00-0400 Systolic blood pressure 119 mm[Hg] MD Raul Byrd Work Phone: 12-05-2023 07:31-0400 Body weight 99.2 kg MD Raul Byrd Work Phone: 12-04-2023 20:00-0400 Body temperature 98.2 [degF] MD Raul Byrd Work Phone: 12-03-2023 23:42-0400 Body height 172.72 cm MD Raul Byrd Work Phone: 10-31-2023 15:01-0500 Body temperature 97.7 [degF] Mhd Al-Marrawi [facility] 10-31-2023 15:01-0500 Diastolic blood pressure 77 mm[Hg] Mhd Al-Marrawi [facility] 10-31-2023 15:01-0500 Heart rate 77 /min Mhd Al-Marrawi [facility] 10-31-2023 15:01-0500 Mean blood pressure 96 mm[Hg] Mhd Al-Marrawi [facility] 10-31-2023 15:01-0500 Respiratory rate 16 /min Mhd Al-Marrawi [facility] 10-31-2023 15:01-0500 SaO2% (BldA) [Mass fraction] 95 % Mhd Al-Marrawi [facility] 10-31-2023 15:01-0500 Systolic blood pressure 133 mm[Hg] Mhd Al-Marrawi [facility] 05-31-2023 15:00-0400 Blood Pressure Location Mhd Al-Marrawi [facility] 05-31-2023 15:00-0400 Body temperature 97.88 [degF] Mhd Al-Marrawi [facility] 05-31-2023 15:00-0400 Diastolic blood pressure 81 mm[Hg] Mhd Al-Marrawi [facility] 05-31-2023 15:00-0400 Heart rate 77 /min Mhd Al-Marrawi [facility] 05-31-2023 15:00-0400 Mean blood pressure 102 mm[Hg] d Al-Marrawi [facility] 05-31-2023 15:00-0400 Respiratory rate 14 /min Mhd Al-Marrawi [facility] 05-31-2023 15:00-0400 SaO2% (BldA) [Mass fraction] 97 % Mhd Al-Marrawi [facility] 05-31-2023 15:00-0400 Systolic blood pressure 145 mm[Hg] d Al-Marrawi [facility] 03-08-2023 15:00-0400 Blood Pressure Location Camille Gramajo [facility] 03-08-2023 15:00-0400 Body temperature 98.06 [degF] Camille Gramajo [facility] 03-08-2023 15:00-0400 Diastolic blood pressure 84 mm[Hg] Camille Gramajo [facility] 03-08-2023 15:00-0400 Heart rate 82 /min Camille Gramajo [facility] 03-08-2023 15:00-0400 Mean blood pressure 104 mm[Hg] Camille Gramajo [facility] 03-08-2023 15:00-0400 Respiratory rate 16 /min Camille Gramajo [facility] 03-08-2023 15:00-0400 SaO2% (BldA) [Mass fraction] 95 % Camille Gramajo [facility] 03-08-2023 15:00-0400 Systolic blood pressure 145 mm[Hg] Camille Gramajo [facility] 09-09-2022 15:31-0500 Blood Pressure Location Raul Byrd [facility] 09-09-2022 15:31-0500 Diastolic blood pressure 76 mm[Hg] Raul Byrd [facility] 09-09-2022 15:31-0500 Heart rate 80 /min Raul Byrd [facility] 09-09-2022 15:31-0500 SaO2% (BldA) [Mass fraction] 98 % Raul Byrd [facility] 09-09-2022 15:31-0500 Systolic blood pressure 124 mm[Hg] Raul Byrd [facility] 05-17-2022 17:45-0400 Blood Pressure Location Raul Byrd [facility] 05-17-2022 17:45-0400 Diastolic blood pressure 76 mm[Hg] Raul Byrd [facility] 05-17-2022 17:45-0400 Heart rate 82 /min Raul Byrd [facility] 05-17-2022 17:45-0400 SaO2% (BldA) [Mass fraction] 96 % Raul Byrd [facility] 05-17-2022 17:45-0400 Systolic blood pressure 136 mm[Hg] Raul Byrd [facility] 02-11-2022 16:30-0400 Diastolic blood pressure 80 mm[Hg] Raul Byrd [facility] 02-11-2022 16:30-0400 Mean blood pressure 101 mm[Hg] Raul Byrd [facility] 02-11-2022 16:30-0400 Systolic blood pressure 142 mm[Hg] Raul Byrd [facility] 02-11-2022 15:51-0400 Blood Pressure Location Raul Byrd [facility] 02-11-2022 15:51-0400 Diastolic blood pressure 82 mm[Hg] Raul Byrd [facility] 02-11-2022 15:51-0400 Heart rate 95 /min Raul Byrd [facility] 02-11-2022 15:51-0400 SaO2% (BldA) [Mass fraction] 98 % Raul Byrd [facility] 02-11-2022 15:51-0400 Systolic blood pressure 146 mm[Hg] Raul Byrd [facility] Encounters Encounter Date Encounter Type Care Provider Facility Start: 11-19-2024 ambulatory Raul Byrd Facility : [facility] Start: 05-21-2024 End: 05-21-2024 ambulatory Raul JainReina Byrd Facility:[facility] [place] Start: 05-14-2024 End: 05-14-2024 ambulatory d Davin LewisRaymond Facility:[facility] Start: 05-08-2024 End: 05-08-2024 [facility] Start: 05-08-2024 End: 05-08-2024 [facility] Start: 04-02-2024 ambulatory Raul Byrd Facility : [facility] Start: 02-13-2024 End: 02-13-2024 ambulatory Raul JainReina Byrd Facility: [facility] Start: 02-08-2024 End: 02-08-2024 ambulatory MD Steve Layne Facility:[facility] Start: 02-08-2024 End: 02-08-2024 Patient encounter procedure Steve Layne [facility] Start: 01-16-2024 End: 01-16-2024 ambulatory Raul Byrd Facility: [facility] Start: 12-08-2023 End: 12-08-2023 ambulatory Raul Byrd Facility: [facility] Start: 12-06-2023 End: 01-05-2024 ambulatory Raul Byrd Facility:CD:[id number] Start: 12-04-2023 Non-patient / Non-visit MD Sp Byrd Work Phone: [facility] Work Phone: Start: 12-04-2023 End: 12-05-2023 Evaluation and management of inpatient Kailey Ron Facility: Start: 12-03-2023 End: 12-05-2023 Evaluation and management of inpatient MD Raul Byrd Work Phone: [facility] Work Phone: Start: 11-29-2023 End: 11-29-2023 ambulatory SHARI TURNER Facility:[facility] Start: 11-01-2023 ambulatory Raul Byrd Facility:[facility] Start: 10-31-2023 End: 10-31-2023 ambulatory Mhd Yaser Al-Marrawi Facility:[facility] Start: 10-31-2023 End: 10-31-2023 Patient encounter procedure Mhd Yaser Al-Marrawi [facility] Start: 10-10-2023 End: 10-10-2023 Lab Drop off Raul Byrd [facility] Start: 10-10-2023 End: 10-10-2023 ambulatory Raul Byrd Facility:[facility] Start: 10-05-2023 End: 10-05-2023 ambulatory Mhd Yaser Al-Marrawi Facility:[facility] Start: 10-05-2023 End: 10-05-2023 Patient encounter procedure Mhd Yaser Al-Marrawi [facility] Start: 10-03-2023 End: 10-03-2023 ambulatory Mhd Yaser Al-Marrawi Facility:[facility] Start: 10-03-2023 End: 10-03-2023 Patient encounter procedure Mhd Yaser Al-Marrawi [facility] Start: 10-03-2023 End: 10-03-2023 ambulatory Mhd Yaser Al-Marrawi Facility:[facility] Start: 09-24-2023 End: 09-24-2023 ambulatory Mhd Davin Sethi Facility:[facility] Start: 09-24-2023 End: 09-24-2023 Patient encounter procedure Mhd Davin Sethi [facility] Start: 05-31-2023 End: 05-31-2023 Patient encounter procedure Yamilethd Davin Sethi [facility] Start: 03-08-2023 End: 03-08-2023 Patient encounter procedure Camille Gramajo [facility] Start: 09-09-2022 End: 09-09-2022 Lab Drop off Raul Byrd [facility] Start: 09-09-2022 End: 09-09-2022 Patient encounter procedure Raul Byrd [facility] Start: 05-17-2022 End: 05-17-2022 Patient encounter procedure Raul Byrd [facility] Start: 02-11-2022 End: 02-11-2022 Lab Drop off Raul Byrd [facility] Start: 02-11-2022 End: 02-11-2022 Patient encounter procedure Raul Byrd [facility] Start: 02-11-2022 End: 02-11-2022 Well adult monitoring check done Raul Byrd [facility] Start: 11-02-2021 End: 11-03-2021 ambulatory SHAIKH QUINTON Facility:[facility] Start: 10-31-2021 End: 10-31-2021 ambulatory MARIA ALEJANDRA ANDREA Facility:[facility] Start: 10-28-2021 End: 10-29-[address] HODA SAUCEDO Facility:[facility] Start: 10-15-2021 Encounter for genera l adult medical examination without abnormal findings RAUL BYRD [facility] Start: 10-13-2021 End: 10-14-2021 ambulatory RAUL BYRD Facility:[facility] Start: 10-13-2021 End: 10-14-2021 Encounter for general adult medical examination without abnormal findings RAUL BYRD Facility:[facility] Start: 12-22-2020 End: 12-23-2020 ambulatory RALU BYRD Facility:[facility] Procedures Date Procedure Procedure Detail Performing Clinician Start: 12-04-2023 MD Raul Byrd Work Phone: Start: 12-04-2023 CL LHC & COR Angio MD Joaquin Byrd Work Phone: Start: 12-04-2023 CL PTCA 1st Vessel CX M D Raul Byrd Work Phone: Start: 12-04-2023 Cardiac catheterization Steve Layne Start: 10-13-2021 PSA screening MARIA ALEJANDRA CAMPOS Comment on above: Performed By: #### C RP, CMP #### [facility] [address] [place] [address] Dr. Mary Lee Start: 08-29-2018 Colonoscopy Raul de la torre Start: 08-29-2005 Transurethral prostatectomy Raul Byrd Start: 08-29-1962 History of tonsillectomy Raul Byrd Repair of tendo achilles Oswaldo Layne Plan of Treatment Date Care Activity Detail Author Start: 12-05-2023 Start: 12-04-2023 Referral to cardiac rehabilitation program Start: 12-04-2023 Start: 12-04-2023 Hospital admission Start: 12-04-2023 Patient Education Coronary Angio plasty (DC) Coronary Stenting (DC) Angina (DC) Chest Pain (DC) Drug Eluting Stents [facility] Work Phone: Patient referral [facility] Work Phone: Immunizations Immunization Date Immunization Notes Care Provider Fa cili 05-14-2023 influenza virus vaccine, unspecified formulation Mhd Al-Marrawi [facility] 05-17-2022 influenza, high dose seasonal, preservative-free Raul Byrd [facility] 05-17-2022 influenza virus vaccine, unspecified formulation Raul Byrd [facility] 04-03-2022 SARS-CoV-2 (COVID-19 ) mRNA-1273 vaccine d Al-Marrawi [facility] 10-04-2021 SARS-CoV-2 (COVID-19 ) mRNA-1273 vaccine Raul Sb [facility] 07-11-2021 SARS-CoV-2 (COVID-19 ) mRNA-1273 vaccine d Al-Marrawi [facility] 06-12-2021 zoster vaccine, live Raul Byrd [facility] 06-01-2021 influenza virus vaccine, unspecified formulation Raul Byrd [facility] 02-05-2021 zoster vaccine, live Raul Ross [facility] 12-03-2020 SARS-CoV-2 (COVID-19 ) mRNA-1273 vaccine Raul Byrd [facility] 11-04-2020 SARS-CoV-2 (COVID-19 ) mRNA-1273 vaccine Raul Byrd [facility] 05-13-2020 influenza virus vaccine, unspecified formulation Mhd Al-Marrawi [facility] 05-13-2020 pneumococcal conjuga te vaccine, 13 valent Raul Byrd [facility] 06-28-2018 influenza virus vaccine, unspecified formulation Mhd Al-Marrawi [facility] 08-16-2017 influenza virus vaccine, unspecified formulation Mhd Al-Marrawi [facility] 07-05-2016 influenza virus vaccine, unspecified formulation Mhd Al-Marrawi [facility] 09-13-2013 influenza virus vaccine, unspecified formulation Mhd Al-Marrawi [facility] Payers Date Payer Category Payer Medicare [id number] 2023 Self-pay [id number] 1959 Private Health Insurance [id number] 1955 Unknown [id number] 2.16.84 0.1.376718.3.579.2.593 1955 Unknown [id number] 2.16.84 0.1.608026.3.579.2.593 1955 Unknown [id number] 2.16.84 0.1.347833.3.579.2.593 1955 Unknown [id number] 2.16.84 0.1.233609.3.579.2.593 1955 Unknown [id number] 2.16.84 0.1.907043.3.579.2.593 1955 Unknown [id number] 2.16.8 40.1.187865.3.579.2.72 1955 Unknown [id number] 2.16.8 40.1.266384.3.579.2.727 1956 Unknown [id number] 2.16.8 40.1.680884.3.579.2.72 1956 Unknown [id number] 2.16.8 40.1.156478.3.579.2.727 1956 Unknown [id number] 2.16.8 40.1.209193.3.579.2.727 1956 Unknown [id number] 2.16.8 40.1.932582.3.579.2.727 1956 Unknown [id number] 2.16.8 40.1.565716.3.579.2.727 1956 Unknown [id number] 2.16.8 40.1.947107.3.579.2.727 1956 Unknown [id number] 2.16.8 40.1.617990.3.579.2.72 1956 Unknown [id number] 2.16.8 40.1.942730.3.579.2.727 1956 Unknown [id number] 2.16.8 40.1.693664.3.579.2.727 1956 Unknown [id number] 2.16.8 40.1.811596.3.579.2.727 1956 Unknown [id number] 2.16.8 40.1.379836.3.579.2.727 1956 Unknown [id number] 2.16.8 40.1.518799.3.579.2.72 1956 Unknown [id number] 2.16.8 40.1.961640.3.579.2.727 1956 Unknown [id number] 2.16.8 40.1.007595.3.579.2.727 1956 Unknown [id number] 2.16.8 40.1.110510.3.579.2.727 1956 Unknown [id number] 2.16.8 40.1.886506.3.579.2.727 Unknown [id number] 2.16.8 40.1.645622.3.579.2.531 Social History Date Type Detail Facility Start: 02-11-2022 End: 02-13-2024 Tobacco smoking status Ex-smoker (finding) [facility] Tobacco smoking status Never [facility] Start: 08-29-1984 End: 08-29-2009 [facility] Start: 1955 Sex Assigned At Male F [facility] Medical Equipment Procedure Code Equipment Code Equipment Origin al Text Equipment Identifier Dates IM 3ml syringes/needles 25gauge, 1 , See Instructions, 1 kit(s), 5, IM syringes/needles for B12 injections every 2 weeks, [id number], Supply, 172, cm, 05/31/23 15:29:00 EDT, Height/Length Dosing, 102.6, kg, 05/31/23 15:29:00 EDT, Weight Dosing Start: 05-31-2023 IM 3ml syringes/needles 25gauge, 1 , See Instructions, 1 kit(s), 5, IM syringes/needles for B12 injections every 2 weeks, [id number], Supply, 172, cm, 05/31/23 15:29:00 EDT, [...] syringes/needles for B12 injections every 2 weeks, [id number], Supply, 172, cm, 10/03/23 15:12:00 EST, Height/Length Dosing, 102.3, kg, 10/03/23 15:12:00 EST, Weight Dosing Start: 10-03-2023 IM 3ml syringes/needles 25gauge, 1 , See Instructions, 1 kit(s), 5, IM syringes/needles for B12 injections every 2 weeks, [id number], Supply, 172, cm, 10/03/23 15:12:00 EST, Height/Length Dosing, 102.3, kg, 10/03/23 15:12:00 EST, Weight Dosing Start: 10-03-2023 Goals Date Patient Goal Desired Activity /State Functional Status Date Assessment Result Facility 02-08-2024 Functional Status N/A [facility] 12-05-2023 Functional status Patient at Baseline [facility] Work Phone: 09-09-2022 Functional Status N/A [facility] 05-17-2022 Functional Status N/A [facility] 02-11-2022 Functional Status N/A [facility] Mental Status Date Assessment Result Facility 12-05-2023 Cognitive function Cognitive Sta tus Patient at Baseline [facility] Work Phone: Clinical Notes 11-04-2021 to 05-21-2024 Note Date & Type Note Facility 05-21-2024 Note Patient Education Nutrition BMI for Adults Body mass index (BMI) is a number found using a person's weight and height. BMI can help tell how much of a person's weight is made up of fat. BMI does not measure body fat directly. It is used instead of tests that directly measure body fat, which can be difficult and expensive. What are BMI measurements used for? BMI is useful to: ? Find out if your weight puts you at higher risk for medical problems. ? Help recommend changes, such as in diet and exercise. This can help you reach a healthy weight. BMI screening can be done again to see if these changes are working. How is BMI calculated? Your height and weight are measured. The BMI is found from those numbers. This can be done with U.S. or metric measurements. Note that charts and online BMI calculators are available to help you find your BMI quickly and easily without doing these calculations. To calculate your BMI in [place].S. measurements: 1. Measure your weight in pounds (lb). 2. Multiply the number of pounds by 703. ? So, for an adult who weighs 150 lb, multiply that number by 703: 150 x 703, which equals 105,450. 3. Measure your height in inches. Then multiply that number by itself to get a measurement called inches squared. ? So, for an adult who is 70 inches tall, the inches squared measurement is 70 inches x 70 inches, which equals 4,900 inches squared. 4. Divide the total from step 2 (number of lb x 703) by the total from step 3 (inches squared): 105,450 ? 4,900 = 21.5. This is your BMI. To calculate your BMI in metric measurements: 1. Measure your weight in kilograms (kg). ? For this example, the weight is 70 kg. 2. Measure your height in meters (m). Then multiply that number by itself to get a measurement called meters squared. ? So, for an adult who is 1.75 m tall, the meters squared measurement is 1.75 m x 1.75 m, which equals 3.1 meters squared. 3. Divide the number of kilograms (your weight) by the meters squared number. In this example: 70 ? 3.1 = 22.6. This is your BMI. What do the results mean? BMI charts are used to see if you are underweight, normal weight, overweight, or obese. The following guidelines will be used: ? Underweight: BMI less than 18.5. ? Normal weight: BMI between 18.5 and 24.9. ? Overweight: BMI between 25 and 29.9. ? Obese: BMI of 30 or above. BMI is a tool and cannot diagnose a condition. Talk with your health care provider about what your BMI means for you. Keep these notes in mind: ? Weight includes fat and muscle. Someone with a muscular build, such as an athlete, may have a BMI that is higher than 24.9. In cases like these, BMI is not a correct measure of body fat. ? If you have a BMI of 25 or higher, your provider may need to do more testing to find out if excess body fat is the cause. ? BMI is measured the same way for males and females. Females usually have more body fat than males of the same height and weight. Where to find more information For more information about BMI, including tools to quickly find your BMI, go to: ? Centers for Disease Control and Prevention: cdc.gov ? [place] Heart Association: heart.org ? National Heart, Lung, and Blood Pandora: nhlbi.nih.gov This information is not intended to replace advice given to you by your health care provider. Make sure you discuss any questions you have with your health care provider. Document Revised: 05/05/2023 Document Reviewed: 04/28/2023 [employer] Patient Education ? 2023 [employer]. [facility] 05-14-2024 Note Oncology Progress No te Oncological History/ROS/PE/Assessment and Plan Diagnoses 1. Macrocytic anemia (D53.9: Nutritional anemia, unspecified) 2. Stage 3b chronic kidney disease (N18.32: Chronic kidney disease, stage 3b) History of Present Illness Mr. Schumacher is [...] then, followed up for 10 years in [place] and no longer is followed, was about [...] associated with other signal or chromosomal abnormalities. 05/14/27: He is here for his 6 months follow up for his Macrocytic anemia which is likely multifactorial like anemia of CKD and can not rule out mild MDS as well. He feels fine without complaints and he denied any bleeding form any source and still on Brilinta for his heart or history of [place]. - Labs on 05/08/2024 revealed copper was normal 85, folate was normal at 13.4 and ferritin 181 with iron saturation of 33% normal TIBC 308 and iron is 103. The B12 has declined down to 733 from 991. That has been coming down by 200 points every 6 months. His hemoglobin is still stable at the 12.6 (more content not included)... [facility] 12-04-2023 Progress note Note Date/Time December 04, 2023 1:[address] [facility] [address] [place] [address] Hospitalist Progress Note Signed Patient: Kenyetta Schumacher I MR#: [id number] : 1955 Acct:[id number] Age/Sex: 68 / M Adm Date: 4 Loc: 4 Room: 4W2374-5 Type: ADM IN Attending Dr: Paul Barriga DO Copies to: ~ Date of Service: 12/04/2023 Subjective Subjective Narrative: Seen and evaluated, patient currently sitting up in the bed and conversing with family. Currently states his chest pain is 1-2/10, anticipating his LHC today. All questions answered. Exam Physical Exam Vital Signs: Temp Pulse Resp BP Pulse Ox O2 Del Method 97.8 F 71 18 120/68 94 L Room Air 12/04/23 04:00 12/04/23 12:15 12/04/23 04:00 12/04/23 12:15 12/04/23 04:00 12/04/23 04:00 Narrative: General: Awake alert, no acute distress HEENT: head atraumatic, normocephalic, moist mucous membranes Neck: supple no masses, no lymphadenopathy CVS: regular rate and rhythm, no murmurs or gallops Respiratory: clear to auscultation bilaterally, no wheezing or crackles, symmetric expansion GI: soft, nondistended, nontender, positive bowel sounds with no organomegaly Extremity: moves all extremities, no restrictions of movements, no calf tenderness, no edema Neuro: AOx3, CN II-VII intact. Moves all extremities in all planes of motion. Skin: dry, intact no rashes or lesions Objective Lab Results 12/04/23 04:35 12/04/23 04:35 Meds Allergies and Active Meds Allergies atorvastatin Allergy (Verified 12/03/23 23:34) Abdominal Pain Active Meds: Active Medications Generic Name Dose Route Start Last Admin Trade Name Yosiq PRN Reason Stop Dose Admin Acetaminophen 1,000 mg 12/03/23 23:37 12/04/23 09:11 Acetaminophen 500 Mg Tablet PO 12/02/24 23:36 1,000 mg Q6H PRN Administration Fever or Pain Acetaminophen 650 mg 12/04/23 01:36 Acetaminophen 325 Mg Tablet PO 12/03/24 01:35 Q4H PRN Pain Scale 1 - 5 Al Hydrox/Mg Hydrox/Simethicone 30 ml 12/04/23 11:44 Mag Hydrox/Al Hydrox/Simeth 30 Ml Udc PO 12/03/24 11:43 Q4H PRN Epigastric distress (Non-Card) Aspirin 81 mg 12/04/23 09:00 12/04/23 09:11 Aspirin 81 Mg Tablet. PO 12/03/24 08:59 81 mg DAILY NETO Administration Atorvastatin Calcium 80 mg 12/04/23 21:00 Atorvastatin 80 Mg Tablet PO 12/03/24 20:59 QPM NETO Atropine Sulfate 1 mg 12/04/23 11:46 Atropine Sulfate 1 Mg/10 Ml Syringe IV-PUSH ONCE PRN Symptomatic Bradycardia Dextrose 0 gm 12/04/23 01:36 Dextrose 50% In Water 25 Gm/50 Ml Syringe IV-PUSH 12/03/24 01:35 PRN PRN Hypoglycemia Docusate Sodium 200 mg 12/04/23 01:36 Docusate 100 Mg Capsule PO 12/03/24 01:35 BID PRN Constipation Docusate Sodium 100 mg 12/04/23 11:44 Docusate 100 Mg Capsule PO 12/03/24 11:43 QHS PRN Constipation Glucose 0 gm 12/04/23 01:36 Dextrose 40% Gel 15 Gm Tube PO 12/03/24 01:35 PRN PRN Hypoglycemia Heparin Sodium (Porcine) 3,200 unit 12/03/23 23:35 Heparin *Protocol Bolus* 5,000 Unit/Ml Vial IV-PUSH 12/02/24 23:34 PROTOCOL PRN PTT 40-53 Heparin Sodium (Porcine) 4,000 unit 12/03/23 23:35 Heparin *Protocol Bolus* 5,000 Unit/Ml Vial IV-PUSH 12/02/24 23:34 PROTOCOL PRN PTT < 40 Hydralazine HCl 10 mg 12/04/23 01:36 Hydralazine 20 Mg/Ml Vial IV-PUSH 12/03/24 01:35 Q4H PRN if SBP > 185 Nitroglycerin/Dextrose 50 mg in 250 mls @ 1.5 mls/hr 12/03/23 23:45 12/04/23 12:15 Nitroglycerin 50 Mg-*D5w* IV 12/02/24 23:44 10 mcg/min .Q24H NETO 3 mls/hr Titration Protocol 5 MCG/MIN Heparin Sodium/Sodium Chloride 25,000 unit in 250 mls @ 10 mls/hr 12/03/23 23:45 12/04/23 10:35 Heparin IV 12/02/24 23:44 0 units/hr .Q24H NETO 0 mls/hr Titration Protocol 1,000 UNITS/HR Sodium Chloride 1,000 mls @ 100 mls/hr 12/04/23 02:00 12/04/23 01:58 0.9% Sodium Chloride 1,000 Ml IV 12/03/24 01:59 100 mls/hr .Q10H NETO Administration Sodium Chloride 250 mls @ 999 mls/hr 12/04/23 11:46 0.9% Sodium Chloride 250 Ml IV 12/03/24 11:45 PRN PRN Hypotension Dextrose/Sodium Chloride 1,000 mls @ 80 mls/hr 12/04/23 12:00 5 % Dextrose-0.45 % Nacl IV 12/04/23 14:59 .[id number] [facility] Insulin Aspart 0 units 12/04/23 08:00 12/04/23 09:40 Insulin Aspart 300 Units/3 Ml Insuln.Pen SUBCUT 12/03/24 07:59 Not Given TID.WM.HS [facility] Protocol Lidocaine HCl 10 ml 12/04/23 11:46 Lidocaine 2% Mdv 50 Ml Vial SUBCUT 12/04/23 23:46 ONCE PRN Sheath Removal Lisinopril 2.5 mg 12/05/23 09:00 Lisinopril 2.5 Mg Tablet PO 12/04/24 08:59 DAILY [facility] Meperidine HCl 25 mg 12/04/23 11:46 Meperidine Pf 25 Mg/Ml Vial IV-PUSH 12/04/23 23:46 ONCE PRN Sheath Removal Metoprolol Tartrate 12.5 mg 12/04/23 09:00 12/04/23 09:11 Metoprolol Tartrate 12.5 Mg Tablet PO 12/03/24 08:59 12.5 mg BID [facility] Administration Morphine Sulfate 2 mg 12/04/23 01:24 12/04/23 01:31 Morphine Sulfate 2 Mg/Ml Vial IV-PUSH 2 mg Q2H PRN Administration Chest Pain Morphine Sulfate 4 mg 12/04/23 11:44 Morphine Sulfate 4 Mg/Ml Cartridge IV-PUSH Q20M PRN Chest Pain Nitroglycerin 0.4 mg 12/04/23 11:44 Nitroglycerin 0.4 Mg Tab.Subl SUBLINGUAL 12/03/24 11:43 Q5M PRN Chest Pain Ondansetron HCl 4 mg 12/04/23 01:48 Ondansetron 4 Mg/2 Ml Vial IV-PUSH 12/03/24 01:47 Q4H PRN Nausea And Vomiting Ondansetron HCl 4 mg 12/04/23 11:44 Ondansetron 4 Mg/2 Ml Vial IV-PUSH 12/03/24 11:43 Q6H PRN Nausea And Vomiting Ticagrelor 90 mg 12/04/23 21:00 Ticagrelor 90 Mg Tablet PO 12/03/24 20:59 BID NETO Tramadol HCl 50 mg 12/04/23 11:44 Tramadol 50 Mg Tablet PO 06/01/24 11:43 Q6H PRN Moderate Pain Triamcinolone Acetonide 1 applic 12/04/23 11:44 Triamcinolone 0.1% Cream 15 Gm Tube TOPICAL 12/03/24 11:43 QID PRN Irritation A&P - Hospitalist Assessment/Plan (1) NSTEMI (non-ST elevated myocardial infarction): Plan 1. Non-ST elevation [place] Continue with aspirin, heparin drip Continue statin as ordered Cholesterol panel notable for triglycerides of 230 Continue with morphine as needed Will order echocardiogram Repeated EKG did not reveal any ischemic changes no ST elevation Consult cardiology Left heart cath today shows 100% blockage in the proximal circumflex flex proximal circumflex that was not amenable to intervention, please see the interventional cardiac procedure note for details ? Continue medical therapy including metoprolol,RON inhibitor, statin, ticagrelor and aspirin. 2. Diabetes mellitus type 2, his glucose has been within acceptable ranges 3. Hypertension, blood pressure is quite well-controlled 4. Chronic kidney disease stage III, avoid ARB's for now, start fluids, recheckin a.m. Documented By: Paul Barriga DO 12/04/23 1337 Signed By: <Electronically signed by Paul Barriga DO> 12/04/23 1342 [facility] Work Phone: 1(792) 673-284304-07-2024 Consult note Author Jhon King December 04, 2023 10:10am Note Date/Time December 04, 2023 10:[address] [facility] [address] [place] [address] Cardiology Consult Note Signed Patient: Kenyetta Schumacher I MR#: [id number] : 1955 Acct:[id number] Age/Sex: 68 / M Adm Date: 4 Loc: 4 Room: [address] [place] [address] Type: ADM IN Attending Dr: Paul Barriga DO Copies to: DO Jhon Santana MD, MD~ Cardiology HPI History of Present Illness Consult Date: 12/04/23 Reason for Consult: Non-ST segment elevation [place] HPI: Mr. Schumacher is a 68 year old male seen for the above Patient individual with no history of heart disease. On Tuesday, 2 days ago, he was on a 3 mile walk. He has some transient chest burning and discomfort. After stopping it went away. The following day, Tuesday, he went for similar walk. He had the onset of chest burning but this time after stopping the walk it did not go away. There was no associated radiation of discomfort no nausea vomiting diaphoresis or dyspnea. Because of unrelenting symptomatology went to [facility] emergency room. While there his EKG was unrevealing but troponins were elevated and for this reason he was transferred here. Patient continues to have some chest burning now approximately 12 hours of the onset of symptomatology. EKG x 2 is normal. Troponins have risen to 19,000. Patient's previous history is notable for hypertension on valsartan. He also has type 2 diabetes. He is not treated for hyperlipidemia. He is a never smoker. Siblings have no heart disease. Mother and father had coronary diseaseat old age. Review of Systems Review of Systems All other systems reviewed & are negative unless noted below or in HPI Constitutional Constitutional: Reports system reviewed and no additional complaints, except as documented Eyes Eyes: Reports system reviewed and no additional complaints, except as documented ENT Ears, Nose, Mouth, and Throat: Reports system reviewed and no additional complaints, except as documented Cardiovascular Cardiovascular: Reports as per HPI Respiratory Respiratory: Reports system reviewed and no additional complaints, except as documented Gastrointestinal Gastrointestinal: Reports system reviewed and no additional complaints, except as documented Genitourinary Genitourinary: Reports system reviewed and no additional complaints, except as documented Musculoskeletal Musculoskeletal: Reports system reviewed and no additional complaints, except asdocumented Integumentary/Breasts Skin/Breast: Reports system reviewed and no additional complaints, except as documented Neurologic Neurologic: Reports system reviewed and no additional complaints, except as documented Psychiatric Psychiatric: Reports system reviewed and no additional complaints, except as documented Endocrine Endocrine: Reports system reviewed and no additional complaints, except as documented Hematologic/Lymphatic Hematologic/Lymphatic: Reports system reviewed and no additional complaints, except as documented Allergic/Immunologic Allergic/Immunologic: Reports system reviewed and no additional complaints, except as documented PMFSH Medical History (Updated 12/04/23 @ 10:09 by Jhon King MD) NSTEMI (non-ST elevated myocardial infarction) Family History (Updated 09/06/21 @ 10:07 by Provider Conversion) Father Heart disease Mother Diabetes Hypertension Heart disease Social History Smoking Status: Former smoker Tobacco Type: cigarettes Substance Use Type: None Meds Medications and Allergies Allergies atorvastatin Allergy (Verified 12/03/23 23:34) Abdominal Pain Home Medications cyanocobalamin (vitamin B-12) 1,000 mcg/mL injection solution mcg 12/04/23 [History] semaglutide 1 mg/dose (4 mg/3 mL) subcutaneous pen injector (Ozempic) mg subcut 12/04/23 [History] valsartan 160 mg tablet mg PO DAILY 12/04/23 [History] Exam Physical Exam Vital Signs: Temp Pulse Resp BP Pulse Ox O2 Del Method 97.8 F 71 18 110/65 94 L Room Air 12/04/23 04:00 12/04/23 06:40 12/04/23 04:00 12/04/23 06:40 12/04/23 04:00 12/04/23 04:00 HEENT Head: normal to inspection Ears: hearing grossly normal bilaterally Nose: external nose normal and nares normal Face and sinus: normal facial exam Mouth: oral mucosae normal and tongue normal Eyes Conjunctivae: conjunctivae normal Sclera: sclerae normal Neck Neck: normal visual inspection Carotids: normal carotid upstroke Lymphatic: no lymphadenopathy noted Chest Chest palpation & inspection: normal inspection of the chest Resp Effort & Inspection: normal respiratory effort Auscultation: clear to auscultation bilaterally Cardio Rate: regular rate Rhythm: regular rhythm Heart Sounds: S1 normal and S2 normal GI Inspection: normal to inspection Palpation: soft Skin General: no rashes or lesions noted Neuro General: patient alert, patient awake and patient oriented x3 Cognition: normal cognition Motor: muscle tone normal throughout Sensory Exam: no sensory deficits noted Results - Cardiology Labs 12/04/23 04:35 12/04/23 04:35 Lab results: Cardiac Enzymes 12/04/23 Range/Units 04:35 AST 74 H (13-39) U/L Lipids 12/04/23 Range/Units 04:35 Triglycerides 230 H (0-149) mg/dL Cholesterol 91 L (140-200) mg/dL HDL Cholesterol 16 L (23-92) mg/dL Cholesterol/HDL Ratio 5.7 (<5.0) CBC 12/03/23 12/04/23 Range/Units 23:47 04:35 RBC 3.28 L 3.00 L (3.90-5.60) X10E6/uL Hgb 11.7 L 11.0 L (13.0-17.0) g/dL Hct 34.6 L 31.7 L (38.8-50.0) % Plt Count 373 329 (150-450) x10E3/uL Neut # (Auto) 6.7 6.1 (1.8-7.7) x10E3/uL Lymph # (Auto) 1.0 1.0 (1.00-4.8) x10E3/uL Crook # (Auto) 0.7 0.7 (0.0-0.8) x10E3/uL Eos # (Auto) 0.2 0.2 (0.0-0.45) x10E3/uL Baso # (Auto) 0.1 0.0 (0.0-0.2) x10E3/uL Comprehensive Metabolic Panel 12/04/23 Range/Units 04:35 Sodium 145 (136-145) mmol/L Potassium 4.2 (3.5-5.1) mmol/L Chloride 113 H (98-107) mmol/L Carbon Dioxide 23.3 (21.0-31.0) mmol/L BUN 33 H (7-25) mg/dL Creatinine 1.86 H (0.70-1.30) mg/dL Glucose 112 H (70-100) mg/dL Calcium 8.6 (8.6-10.3) mg/dL AST 74 H (13-39) U/L ALT 19 (7-52) U/L Alkaline Phosphatase 60 (34-104) U/L Total Protein 5.8 L (6.4-8.9) gm/dL Albumin 3.7 (3.5-5.7) gm/dL Intake and Output 12/03/23 12/04/23 12/04/23 23:59 07:59 15:59 Other: # Unmeasured Voids 3 Weight 99.5 kg 99.5 kg Date of Last Bowel Movement 12/03/23 Patient Weight 12/04/23 23:59 Weight 99.5 kg Lab 12/03/23 12/04/23 12/04/23 23:47 04:35 08:36 PT 12.7 INR 1.1 APTT 49.7 H 43.6 H 44.7 H A&P - Cardiology (1) NSTEMI (non-ST elevated myocardial infarction): Assessment/Problem Details: Patient has 2 normal EKGs. Troponin elevation, though, is significant. Because of this we are concerned regarding flow-limiting coronary disease. Possibly circumflex distribution Code(s): I21.4 - Non-ST elevation (NSTEMI) myocardial infarction (2) Stage 3 chronic kidney disease: Assessment/Problem Details: Patient has a known history of stage III and renal insufficiency. Intermittently followed by nephrology. Qualifiers: Chronic kidney disease stage 3 subtype: stage 3a (GFR 45-59) Qualified Code(s): N18.31 - Chronic kidney disease, stage 3a Code(s): N18.30 - Chronic kidney disease, stage 3 unspecified (3) Essential hypertension: Assessment/Problem Details: With good control on valsartan Code(s): I10 - Essential (primary) hypertension (4) Diabetes mellitus: Assessment/Problem Details: For approximately 5 years. Qualifiers: Diabetes mellitus type: type 2 Diabetes mellitus nursing home insulin use: without nursing home use Diabetes mellitus complication status: with kidney complications Diabetes mellitus complication detail: with chronic kidney disease Chronic kidney disease stage: stage 3 (moderate) Chronic kidney disease stage 3 subtype: stage 3a (GFR 45-59) Qualified Code(s): E11.22 - Type 2 diabetes mellitus with diabetic chronic kidney disease; N18.31 - Chronic kidney disease, stage 3a Code(s): E11.9 - Type 2 diabetes mellitus without complications Plan N.p.o. status. I have discussed the case with Dr. Taylor and we plan coronary angiography today. Documented By: Jhon King MD [id number] Signed By: <Electronically signed by MD Jhon King> 12/04/23 1010 [facility] Work Phone: 1(570) 565-277704-07-2024 Procedure note04-07-2024 Procedure note04-07-2024 History and physical note Author Kailey Velasquez December 04, 2023 8:20am Note Date/Time December 04, 2023 1:[address] [facility] [address] [place] [address] Hospitalist H&P Signed Patient: Kenyetta Schumacher I MR#: [id number] : 1955 Acct:[id number] Age/Sex: 68 / M Adm Date: 4 Loc: Room: [address] [place] [address] Type: ADM IN Attending Dr: Paul Barriga DO Copies to: MD Raul Ortega MD, DO~ HPI DATE OF EXAMINATION: 12/04/23 CHIEF COMPLAINT: Chest indigestion HISTORY OF PRESENT ILLNESS: 68 years old male with history of diabetes and hypertension presented to [facility] emergency room with complaints of burning sensation. During the last week patient had some upper respiratory tract infection and he has been having some congestion and hard coughing. 2 days he developed chest pain/burning sensation without any other associated symptoms twice at rest, it lasted about 20 minutes and went away. Yesterday he went for his 3 mile walking when he developed burning sensation however he continued to walk and finish his 3 miles. The burning sensation lasted all day, in the afternoon he was concerned so he presented to emergency room. In emergency room EKG was done showed normal sinuswithout ischemic changes but high-sensitivity troponin was over 1000. He was given aspirin, heparin drip, nitroglycerin drip and morphine and transferred here for further evaluation. Per patient he is in the ingestion slightly improved after he was given morphine but did not resolve. On arrival he still had some indigestion, nonpleuritic, nonpositional nonreproducible without any other symptoms, he was on nitroglycerin drip at 10. EKG was done which revealednormal sinus without ischemic changes. Patient was given morphine. He denies any history of coronary artery disease, he did had remote stress test. He does have underlying hypertension and diabetes takes Ozempic. Otherwise he denies any nausea any sweating any palpitations any dizziness any shortness of breath any lower extremity swelling. He is quite active. Right blood cell counts 11.0, hemoglobin 12.1, platelets 361, INR 0.9, potassium4.3, sodium 144, bicarbonate 23, BUN 35, creatinine 2.0, glucose 114, calcium 9.2, liver enzymes normal troponins 1557, repeated 2693 Chest x-ray without acute findings Review of systems are reviewed and are negative apart was mentioned mentioned inH&P General -patient is awake alert oriented ?3, does not appear to be in distress HEENT -normal oropharyngeal mucosa without any ulcers or exudates Cardiovascular -S1 plus S2, with regular rate, without any murmurs, gallops, rubs Pulmonary -clear to auscultation bilaterally Gastrointestinal -abdomen is soft, nondistended, nontender, bowel sounds positive, no rigidity, no rebound Genitourinary -no flank tenderness Musculoskeletal -no back tenderness, no significant joint swelling, full range of motion Neurological -no focal Skin -no significant ulcers, no rash noted Extremities - no edema in bilateral lower extremities noted Psychiatry - appropriate affect Laboratory work up, imaging studies reviewed EKG personally reviewed by me Previous records in the computer system reviewed [facility] Medical History (Updated 12/04/23 @ 08:20 by Kailey Velasquez MD) NSTEMI (non-ST elevated myocardial infarction) Family History (Updated 09/06/21 @ 10:07 by Provider Conversion) Father Heart disease Mother Diabetes Hypertension Heart disease Social History Smoking Status: Former smoker Tobacco Type: cigarettes Substance Use Type: None Meds Medications and Allergies Allergies atorvastatin Allergy (Verified 12/03/23 23:34) Abdominal Pain Home Medications cyanocobalamin (vitamin B-12) 1,000 mcg/mL injection solution mcg 12/04/23 [History] semaglutide 1 mg/dose (4 mg/3 mL) subcutaneous pen injector (Ozempic) mg subcut 12/04/23 [History] valsartan 160 mg tablet mg PO DAILY 12/04/23 [History] Exam Physical Exam Vital Signs: Temp Pulse Resp BP Pulse Ox O2 Del Method 36.5 C 71 20 135/74 96 Room Air 12/04/23 00:20 12/04/23 00:44 12/04/23 00:20 12/04/23 00:44 12/04/23 00:20 12/04/23 00:20 Results - Hospitalist H&P Lab Results Labs: Laboratory Last Values Corrected WBC 8.7 X10E3/uL (4.1-10.5) 12/03/23 23:47 Uncorrected WBC Count 8.7 x10E3/uL (4.1-10.5) 12/03/23 23:47 RBC 3.28 X10E6/uL (3.90-5.60) L 12/03/23 23:47 Hgb 11.7 g/dL (13.0-17.0) L 12/03/23 23:47 Hct 34.6 % (38.8-50.0) L 12/03/23 23:47 MCV 105.7 fl (83.5-101) H 12/03/23 23:47 MCH 35.7 pg (27.5-35.2) H 12/03/23 23:47 MCHC 33.8 g/dL (32.5-35.6) 12/03/23 23:47 RDW 16.6 % (12.0-14.8) H 12/03/23 23:47 Plt Count 373 x10E3/uL (150-450) 12/03/23 23:47 MPV 7.6 fl (6.6-10.1) 12/03/23 23:47 Neut % (Auto) 77.1 % (.) 12/03/23 23:47 Lymph % (Auto) 11.9 % (.) 12/03/23 23:47 Crook % (Auto) 8.0 % (.) 12/03/23 23:47 Eos % (Auto) 2.3 % (.) 12/03/23 23:47 Baso % (Auto) 0.7 % (.) 12/03/23 23:47 Nucleat RBC Rel Count 0.0 /100 WBC (0-0.5) 12/03/23 23:47 Neut # (Auto) 6.7 x10E3/uL (1.8-7.7) 12/03/23 23:47 Lymph # (Auto) 1.0 x10E3/uL (1.00-4.8) 12/03/23 23:47 Crook # (Auto) 0.7 x10E3/uL (0.0-0.8) 12/03/23 23:47 Eos # (Auto) 0.2 x10E3/uL (0.0-0.45) 12/03/23 23:47 Baso # (Auto) 0.1 x10E3/uL (0.0-0.2) 12/03/23 23:47 PT 12.7 Seconds (9.0-12.9) 12/03/23 23:47 INR 1.1 12/03/23 23:47 APTT 49.7 Seconds (25.1-36.5) H 12/03/23 23:47 Troponin I High Sens 5343.8 pg/mL (0.0-20.0) H* 12/03/23 23:47 Assessment & Plan Assessment/Plan (1) NSTEMI (non-ST elevated myocardial infarction): Plan 1. Non-ST elevation [place] For now continue with aspirin, heparin drip Check lipid profile, and we will start on statin Continue with morphine as needed for chest pain and nitroglycerin drip Will order echocardiogram Repeated EKG did not reveal any ischemic changes no ST elevation Consult cardiology 2. Diabetes mellitus type 2, added sliding scale, n.p.o. for now 3. Hypertension, blood pressure is quite well-controlled 4. Chronic kidney disease stage III, avoid ARB's for now, start fluids, recheck in a.m. Patient was reevaluated early in the morning. After increasing nitroglycerin drip and given morphine his burning sensation resolved, per patient he still had some dull pulsating like sensation on and off but significantly improved since admission. Repeated EKG showed normal sinus without ischemic changes no ST elevation noted I did discuss with Dr. King. For now we will keep NPO. Plan for cardiac cath today IP vs OBS Justification Based on differential dx, clinical care plan, and risk of adverse events, if untreated, in my clinical judgement this patient requires an acute care setting as: INPATIENT because of an expectation of an over 2 midnight stay. Estimated length of stay (# of days): 3 Documented By: Kailey Velasquez MD 12/04/23 0141 Signed By: <Electronically signed by Kailey Velasquez MD> 12/04/23 0820 [facility] Work Phone: 1(309) 836-147502-05-2024 Hospital Discharge instructions Follow Up Care 10/03/2023 15:37:58 With:Navdeep LUNDY, Yariel Jin, MED, ONC Address: When: Unknown Comments:-Continue B12 IM injection every 2 weeks at home. Alternatively can use B12 sublingual at 2500 mcg once daily.- Labs in 6 months: CBCD, CMP, LDH. B12, folate, copper and iron studies.- Return in 6 months for results. [facility]07-25-2023 Hospital Discharge instructions Follow Up Care 03/22/2023 16:06:20 With:Yariel Sethi Address: [facility] [place] [phone] Business (1) When: Unknown Comments:Plan:- Change B12 IM injection from weekly to every 2 weeks at home.- Refill his B12 will be sent to [facility].- Labs in 3 months: Peripheral blood flow cytometry for hereditary spherocytosis, Myeloma labs, Iron studies, folate, B12 level, CBCD, CMP and Retic count (since it was 2.0) and LDH.- RTC in 3 months. [facility]01-12-2023 Hospital Discharge instructions Patient Education 09/09/2022 15:40:48 [...] problems. It is used to check whether aperson is obese, overweight, healthy weight, or underweight. How is BMI calculated? BMI measures your weight and compares it to your height. This can be done either in Italian (U.S[place] or metric measurements. Note that charts are available to help you find your BMI quickly and easily without having to do these calculations yourself. To calculate your BMI in Italian ([place].S[place] measurements, your health care provider will: [...] muscular build, such as an athlete, may havea BMI that is higher than 24.9. In cases like these, BMI is not an accurate measure of body fat. To determine if excess body fat is the cause of a BMI of 25 or higher, further assessments may needto be done by a health care provider. [...] medical problems. BMI can be measured using Italian measurements or metric measurements. To interpret your [...] 04/26/2005 Document Revised: 07/28/2018 Document Reviewed: 06/28/2018 [employer] Patient Education 2019 [employer]. [facility] 09-19-2022 Hospital Discharge instructions Patient Education 05/17/2022 18:03:15 [...] problems. It is used to check whether aperson is obese, overweight, healthy weight, or underweight. How is BMI calculated? BMI measures your weight and compares it to your height. This can be done either in Italian ([place].S[place] or metric measurements. Note that charts are available to help you find your BMI quickly and easily without having to do these calculations yourself. To calculate your BMI in Italian ([place] measurements, your health care provider will: [...] muscular build, such as an athlete, may havea BMI that is higher than 24.9. In cases like these, BMI is not an accurate measure of body fat. To determine if excess body fat is the cause of a BMI of 25 or higher, further assessments may needto be done by a health care provider. [...] medical problems. BMI can be measured using Italian measurements or metric measurements. To interpret your [...] Document Reviewed: 06/28/2018 Else[employer] Patient Education 2019 [employer]. [facility] 06-16-2022 Hospital Discharge instructions Patient Education 02/11/2022 16:35:12 [...] problems. It is used to check whether aperson is obese, overweight, healthy weight, or underweight. How is BMI calculated? BMI measures your weight and compares it to your height. This can be done either in Italian (U.S.) or metric measurements. Note that charts are available to help you find your BMI quickly and easily without having to do these calculations yourself. To calculate your BMI in Italian ([place].S[place] measurements, your health care provider will: [...] muscular build, such as an athlete, may havea BMI that is higher than 24.9. In cases like these, BMI is not an accurate measure of body fat. To determine if excess body fat is the cause of a BMI of 25 or higher, further assessments may needto be done by a health care provider. [...] medical problems. BMI can be measured using Italian measurements or metric measurements. To interpret your [...] 04/26/2005 Document Revised: 07/28/2018 Document Reviewed: 06/28/2018 [employer] Patient Education 2020 [employer]. 02/11/2022 16:35:03 Chronic Kidney Disease, Adult Chronic [...] away, but it can often be controlled. Peoplewho have CKD are usually able to live normal lives. What are the causes? The most common causes of this condition are diabetes and high blood pressure (hypertension). Othercauses include: Heart and blood vessel (cardiovascular) disease. [...] older than age 60. Are female. Are -Citizen Of [place], , , , or . Are a [...] if the kidneys can no longer do theirjob (kidney failure). Managing any other conditions that are causing your CKD or making it worse. Follow these instructions at home: Medicines Take aolu-xoi-tnpmwiw and prescription medicines only as told by [...] track your blood sugar (blood glucose) levels astold by your health care provider. Maintain a [...] is important. Where to find more information Citizen [place] Association of Kidney Patients: www.aakp.org National Kidney Foundation: www.kidney.org Citizen Of [place] Kidney Fund: www.akfinc.org Life [facility] Rehabilitation Program: [...] 05/24/2009 Document Revised: 07/28/2018 Document Reviewed: 09/22/2017 [employer] Patient Education 2020 [employer]. 02/11/2022 16:34:57 Hypertension, Adult Hypertension, Adult High [...] a heart attack, heart failure, a stroke, kidneydisease, and other problems. A blood pressure reading [...] on the floor. The cuff of the bloodpressure monitor will be placed directly against the [...] in sodium, added sugar, and fat. An exampleeating plan is called the DASH (Dietary Approaches [...] contain nicotine or tobacco, such as cigarettes, e- cigarettes, and chewing tobacco. If you need help quitting, ask your health care provider. Monitor your blood pressure at home as told by your health care provider. Keep all follow-up visits as told by your health care provider. This is important. Medicines Take [id number] and prescription medicines only as told by your health care provider. Follow directions carefully. Blood pressure medicines must be taken as prescribed. Do not skip doses of blood pressure medicine. Doing this puts you at risk for problems and can makethe medicine less effective. Ask your health care [...] 08/15/2006 Document Revised: 04/25/2019 Document Reviewed: 04/25/2019 [employer] Patient Education 2020 [employer]. 02/11/2022 16:34:50 Health Maintenance, Male Health Maintenance, [...] high risk for HIV. Your health care providermay recommend a prescription medicine to help prevent HIV infection. If you choose to take medicineto prevent HIV, you should first get tested for HIV. You should then be tested every 3 months for as long as you are taking the medicine. Follow these instructions at home: Lifestyle Do not use any products that contain nicotine or tobacco, such as cigarettes, e- cigarettes, and chewing tobacco. If you need help [...] 02/10/2009 Document Revised: 08/08/2019 Document Reviewed: 08/08/2019 [employer] Patient Education 2020 [employer]. 02/11/2022 16:04:12 BMI for Adults BMI for [...] problems. It is used to check whether aperson is obese, overweight, healthy weight, or underweight. How is BMI calculated? BMI measures your weight and compares it to your height. This can be done either in Italian (U.S[place] or metric measurements. Note that charts are available to help you find your BMI quickly and easily without having to do these calculations yourself. To calculate your BMI in Italian ([place] measurements, your health care provider will: [...] muscular build, such as an athlete, may havea BMI that is higher than 24.9. In cases like these, BMI is not an accurate measure of body fat. To determine if excess body fat is the cause of a BMI of 25 or higher, further assessments may needto be done by a health care provider. [...] medical problems. BMI can be measured using Italian measurements or metric measurements. To interpret your [...] 04/26/2005 Document Revised: 07/28/2018 Document Reviewed: 06/28/2018 [employer] Patient Education 2019 [employer]. [facility] [place] 03-11-2022 NoteHNO ID: [id number] Author: Hanny Alcala MD Service: General Internal Medicine Author Type: Physician Type: Progress Notes Filed: 11/06/2021 7:15 PM Note Text: DEPARTMENT OF HOSPITAL MEDICINE PROGRESS NOTE SERVICE DATE: 11/06/2021 SERVICE TIME: 9:08 AM Hospital Medicine/Primary Attending: Hanny Alcala MD NIGHT AND WEEKEND COVERAGE: [facility] COVERAGE: Days: [phone], please page Hanny Alcala for patient issues. Nights: [phone], please page Team GIChaitanya 3: G/H 8th floor: [address]609; Non 8th floor [id number] Subjective INTERVAL HPI: Patient reports feeling somewhat [...] does it correlate (more content not included)... [facility]03-10-2022 NoteHNO ID: [id number] Author: Hanny Alcala MD Service: General Internal Medicine Author Type: Physician Type: Progress Notes Filed: 11/05/2021 5:51 PM Note Text: DEPARTMENT OF HOSPITAL MEDICINE PROGRESS NOTE SERVICE DATE: 11/05/2021 SERVICE TIME: 10:36 AM Hospital Medicine/Primary Attending: Hanny Alcala MD NIGHT AND WEEKEND COVERAGE: [facility] COVERAGE: Days: [phone], please page Hanny Alcala for patient issues. Nights: [phone], please page Team GIM 3: G/H 8th floor: 77917; Non 8th floor [address] Subjective INTERVAL HPI: Admitted overnight. Pain in [...] in ER for ?t (more content not included)...[facility]03-09-2022 Note HNO ID: [id number] Author: RT Bing(R) Service: Radiology Author Type: [...] Schumacher DATE: November 04, 2021 TIME: 3:03 [facility]03-09-2022 NoteHNO ID: [id number] Author: ALEX Myers Service: Care Management Author Type: Gaming Cage Worker Type: Care Mgt Initial Assessment Filed: 11/04/2021 2:03 PM Note Text: CARE MANAGEMENT: ASSESSMENT AND DISCHARGE PLAN SERVICE DATE: November 04, 2021 SERVICE TIME: 2:03 PM PRIMARY CARE PHYSICIAN: Shaikh Quinton MD ADMISSION STATUS: Emergency Needs Prior to Discharge: To Be Determined 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 Last discharge within 30 days: No Advance Directive: Current Advance Directive: None Electromechanical Engineer Attempted to Assist with AD Completion: Yes [...] Scooter Has the Patient Been in a Chcf Facility in the Past 30 days?: No [...] Completely I feel financially burdened by my xhv-af-qedzcy expenses for my prescription medication:: 0 - Disagree Completely Risk Score: 0 Patient is categorized as: Low risk < 2 Are you interested in bedside delivery of your medications? No Is Patient Psychosocially Complex?: No ASSESSMENT AND PLAN: Medical Needs: Medical Needs: Other Needs (Pain) Psychosocial Needs: Psychosocial Needs: None FREEDOM OF CHOICE EXPLAINED: [place] of Choice Given: No Reason Not Given: Unable to complete with this assessment - revisit POTENTIAL TRANSITION PLANS To Be Determined SW met with pt, pt's spouse, pt's son at bedside. Pt from [place]. Pt reports he has had multiple ED visits recently for this back/groin pain. Pt has been using a rollator for approx 10 days. Prior to this, pt totally independent. 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 Pt takes 2 medications Denies any food/financial insecurity. Family will provide transportation at d/c. Geriatrics consulted. SW will continue to follow while pt remains in ED SIGNATURE: ALEX Myers PATIENT NAME: Kenyetta Schumacher DATE: November 04, 2021 TIME: 2:01 PM PAGER/CONTACT #: [phone] Future Appointments Appointment Date:08/13/2022 03:20:00 PM Scheduled Provider:Raul Byrd MD Location:[facility] Appointment Type:[facility] Evaluation + Plan note Future Appointments Appointment Date:08/13/2022 03:20:00 PM Scheduled Provider:Raul Byrd MD Location:[facility] Appointment Type: Open Diagnostic Tests Pending * CBC w/ Auto Diff 02/11/22 * Comprehensive Metabolic Panel 02/11/22 * Lipid Panel 02/11/22 * HgbA1c 02/11/22 * Microalbumin Level Urine 02/11/22 [facility] Future Appointments Appointment Date:12/08/2022 03:00:00 PM Scheduled Provider:Raul Byrd MD Location:[facility] Appointment Type:[facility] Evaluation + Plan note Future Appointments Appointment Date:12/08/2022 03:00:00 PM Scheduled Provider:Raul Byrd MD Location:[facility] Appointment Type: Open Diagnostic Tests Pending * CBC w/ Auto Diff 09/09/22 * Comprehensive Metabolic Panel 09/09/22 * Lipid Panel 09/09/22 * HgbA1c 09/09/22 * PSA Free & Total 09/09/22 [facility] Future Appointments Appointment Date:03/22/2023 03:30:00 PM Scheduled Provider: Location:.ONCOLOGY Appointment Type:ONC Office Visit 30 (FT) Appointment Date:04/11/2023 02:20:00 PM Scheduled Provider:Raul Byrd MD Location:[facility]ments Appointment Date:03/22/2023 03:30:00 PM Scheduled Provider: Location:.ONCOLOGY Appointment Type:ONC Office Visit 30 (FT) Appointment Date:04/11/2023 02:20:00 PM Scheduled Provider:Raul Byrd MD Location:[facility] Appointment Type:FM Open Diagnostic Tests Pending * Copper Level 03/08/23 [facility] Future Appointments Appointment Date:09/06/2023 03:30:00 PM Scheduled Provider: Location:.ONCOLOGY Appointment Type:ONC Office Visit 30 (FT) Appointment Date:10/10/2023 01:20:00 PM Scheduled Provider:Raul Byrd MD Location:[facility] Appointment Type:FM Open Diagnostic Tests Pending * Reticulocyte Count 05/31/23 Future Scheduled Tests Laboratory* U Protein/Creat Ratio 04/11/23 * HgbA1c 04/11/23 * Microalbumin Level Urine 04/11/23 * REBECCA and PE, Serum 08/26/23 * Immunoglobs. A/E/G/M 08/26/23 * Free K+L Lt Chains,Qn,S 08/26/23 * CBC w/ Auto Diff 08/26/23 * Comprehensive Metabolic Panel 08/26/23 * Ferritin 08/26/23 * Folate Level 08/26/23 * Iron Level 08/26/23 * Iron Percent Saturation 08/26/23 * Lactate Dehydrogenase 08/26/23 * Transferrin 08/26/23 * Vitamin B12 Level 08/26/23 [facility] Future Appointments Appointment Date:10/03/2023 03:00:00 PM Scheduled Provider: Location:.ONCOLOGY Appointment Type:ONC Office Visit 30 (FT) Appointment Date:10/10/2023 01:15:00 PM Scheduled Provider:Raul Byrd MD Location:[facility] Appointment Type:FM Open Diagnostic Tests Pending * Path. Review 09/24/23 * REBECCA and PE, Serum 09/24/23 * Free K+L Lt Chains,Qn,S 09/24/23 * Immunoglobs. A/E/G/M 09/24/23 Future Scheduled Tests Laboratory* U Protein/Creat Ratio 04/11/23 * HgbA1c 04/11/23 * Microalbumin Level Urine 04/11/23 [facility] Future Appointments Appointment Date:10/10/2023 01:15:00 PM Scheduled Provider:Raul Byrd MD Location:[facility] Appointment Type:FM Open Appointment Date:10/31/2023 03:00:00 PM Scheduled Provider:Yariel Sethi MD Location:FT.ONCOLOGY Appointment Type:ONC Office Visit 30 (FT) Future Scheduled Tests Laboratory* U Protein/Creat Ratio 04/11/23 * HgbA1c 04/11/23 * Microalbumin Level Urine 04/11/23 [facility] Future Appointments Appointment Date:10/31/2023 03:00:00 PM Scheduled Provider:Yariel Sethi MD Location:[facility].ONCOLOGY Appointment Type:ONC Office Visit 30 (FT) Appointment Date:04/02/2024 01:00:00 PM Scheduled Provider:Raul Byrd MD Location:[facility] Appointment Type: Open Diagnostic Tests Pending * HgbA1c 10/10/23 Future Scheduled Tests Laboratory* U Protein/Creat Ratio 04/11/23 * HgbA1c 04/11/23 * Microalbumin Level Urine 04/11/23 [facility] Future Appointments Appointment Date:04/02/2024 01:00:00 PM Scheduled Provider:Raul Byrd MD Location:[facility] Appointment Type: Open Future Scheduled Tests Laboratory* U Protein/Creat Ratio 04/11/23 * HgbA1c 04/11/23 * Copper Level 03/26/24 * Microalbumin Level Urine 04/11/23 * CBC w/ Auto Diff 03/26/24 * Comprehensive Metabolic Panel 03/26/24 * Ferritin 03/26/24 * Folate Level 03/26/24 * Iron Level 03/26/24 * Iron Percent Saturation 03/26/24 * Lactate Dehydrogenase 03/26/24 * Transferrin 03/26/24 * Vitamin B12 Level 03/26/24 [facility] Future Appointments Appointment Date:02/13/2024 02:45:00 PM Scheduled Provider:Raul Byrd MD Location:[facility] Appointment Type:FM Open Appointment Date:04/02/2024 01:00:00 PM Scheduled Provider:Raul Byrd MD Location:[facility] Appointment Type:FM Open Appointment Date:05/07/2024 03:30:00 PM Scheduled Provider:Yariel Sethi MD Location:[facility].ONCOLOGY Appointment Type:ONC Office Visit 30 (FT) Appointment Date:08/09/2024 03:00:00 PM Scheduled Provider:Steve Layne MD Location:[facility] Appointment Type:Cardiology Follow Up (FT) Future Scheduled Tests Laboratory* U Protein/Creat Ratio 04/11/23 * HgbA1c 04/11/23 * Microalbumin Level Urine 04/11/23 * Lipid Panel 02/08/24 [facility] Future Appointments Appointment Date:05/14/2024 02:00:00 PM Scheduled Provider:Raul Byrd MD Location:[facility] Appointment Type: Open Appointment Date:05/14/2024 03:40:00 PM Scheduled Provider:Yariel Sethi MD Location:[facility]ONCOLOGY Appointment Type:ONC Office Visit 30 (FT) Appointment Date:08/09/2024 03:00:00 PM Scheduled Provider:Steve Layne MD Location:[facility] Appointment Type:Cardiology Follow Up (FT) Diagnostic Tests Pending * Copper Level 05/08/24 Future Scheduled Tests Laboratory* Lipid Panel 02/08/24 [facility] Evaluation note* Diagnosis Onset Date Resolution Status Diabetes mellitus acute Essential hypertension acute NSTEMI (non-ST elevated myocardial infarction) acute Stage 3 chronic kidney disease acute [facility] Work Phone: Hospital course Narrative No data available for this section [facility] Hospital Discharge instructions No data available for this section [facility] No data available for this section [facility] Progress note Author W Brandon December 05, 2023 11:19am Note Date/Time December 05, 2023 11:[address] [facility] [address] [place] [address] Cardiology Progress Note Signed Patient: Kenyetta Schumacher I MR#: [id number] : 1955 Acct:[id number] Age/Sex: 68 / M Adm Date: 4 Loc: 4P Room: 2A4826-2 Type: ADM IN Attending Dr: Paul Barriga DO Copies to: ~ Date of Service: 12/05/2023 Subjective Principal diagnosis: Non-ST elevation [place], ASHD, failed attempt PCI circumflex Interval history: Mr. Schumacher is a 68 year old male seen for the above Patient individual with no history of heart disease. On Tuesday, 2 days ago, he was on a 3 mile walk. He has some transient chest burning and discomfort. After stopping it went away. The following day, Tuesday, he went for similar walk. He had the onset of chest burning but this time after stopping the walk it did not go away. There was no associated radiation of discomfort no nausea vomiting diaphoresis or dyspnea. Because of unrelenting symptomatology went to [facility] emergency room. While there his EKG was unrevealing but troponins were elevated and for this reason he was transferred here. Patient continues to have some chest burning now approximately 12 hours of the onset of symptomatology. EKG x 2 is normal. Troponins have risen to 19,000. Patient's previous history is notable for hypertension on valsartan. He also has type 2 diabetes. He is not treated for hyperlipidemia. He is a never smoker. Siblings have no heart disease. Mother and father had coronary diseaseat old age. Interim evaluation 12/05/23: Patient stable, up ambulating in the room, currently in chair without any distress, angina, heart failure, arrhythmia doing very well. Right radial access site is without hematoma with excellent pulse Troponins are down to 11,000, ECG normal Appropriate initiation of GDMT initiated yesterday post cath/attempted PTCA. Patient be discharged today on home dose valsartan, including aspirin, ticagrelor, high intensity statin, for TCM cardiology follow-up within 2 weeks, and initiation of cardiac rehab. Appropriate arrangements have been made. Detailed review of his anatomy, attempted intervention as well as oncologic changes and prescriptions discussed x 30 min. Exam Physical Exam Vital Signs: Temp Pulse Resp BP Pulse Ox O2 Del Method 98.2 F 73 16 119/67 98 Room Air 12/04/23 20:00 12/05/23 08:00 12/05/23 08:00 12/05/23 08:00 12/05/23 08:00 12/05/23 08:00 Objective Labs 12/05/23 04:43 12/05/23 04:43 Labs: Laboratory Results - last 24 hr 12/04/23 12/04/23 12/04/23 15:41 17:52 20:52 Corrected WBC Uncorrected WBC Count RBC Hgb Hct MCV MCH MCHC RDW Plt Count MPV Neut % (Auto) Lymph % (Auto) Crook % (Auto) Eos % (Auto) Baso % (Auto) Nucleat RBC Rel Count Neut # (Auto) Lymph # (Auto) Crook # (Auto) Eos # (Auto) Baso # (Auto) PHA Creatinine Clear Sodium Potassium Chloride Carbon Dioxide Anion Gap BUN Creatinine Est GFR (CKD-EPI) Glucose POC Glucose 72 103 Calcium Troponin I High Sens 73243.0 H* 12/04/23 12/05/23 12/05/23 21:59 04:43 07:19 Corrected WBC 12.3 H Uncorrected WBC Count 12.3 H RBC 3.23 L Hgb 11.5 L Hct 34.1 L MCV 105.6 H MCH 35.8 H MCHC 33.8 RDW 16.8 H Plt Count 339 MPV 7.6 Neut % (Auto) 83.1 Lymph % (Auto) 6.6 Crook % (Auto) 8.8 Eos % (Auto) 1.2 Baso % (Auto) 0.3 Nucleat RBC Rel Count 0.2 Neut # (Auto) 10.2 H Lymph # (Auto) 0.8 L Crook # (Auto) 1.1 H Eos # (Auto) 0.1 Baso # (Auto) 0.0 PHA Creatinine Clear 51.88 Sodium 141 Potassium 4.1 Chloride 109 H Carbon Dioxide 24.5 Anion Gap 11.6 BUN 19 Creatinine 1.58 H Est GFR (CKD-EPI) 47.645 Glucose 106 H POC Glucose 149 130 Calcium 8.7 Troponin I High Sens 52014.3 H* A&P - Cardiology (1) NSTEMI (non-ST elevated myocardial infarction): Assessment/Problem Details: Patient has 2 normal EKGs. Troponin elevation, though, is significant. Becauseof this we are concerned regarding flow-limiting coronary disease. Possibly circumflex distribution Code(s): I21.4 - Non-ST elevation (NSTEMI) myocardial infarction (2) Stage 3 chronic kidney disease: Assessment/Problem Details: Patient has a known history of stage III and renal insufficiency. Intermittently followed by nephrology. Qualifiers: Chronic kidney disease stage 3 subtype: stage 3a (GFR 45-59) Qualified Code(s): N18.31 - Chronic kidney disease, stage 3a Code(s): N18.30 - Chronic kidney disease, stage 3 unspecified (3) Essential hypertension: Assessment/Problem Details: With good control on valsartan Code(s): I10 - Essential (primary) hypertension (4) Diabetes mellitus: Assessment/Problem Details: For approximately 5 years. Qualifiers: Diabetes mellitus type: type 2 Diabetes mellitus nursing home insulin use:without middle or intermediate school principal use Diabetes mellitus complication status: with kidney complications Diabetes mellitus complication detail: with chronic kidney disease Chronic kidney disease stage: stage 3 (moderate) Chronic kidney disease stage 3 subtype: stage 3a (GFR 45-59) Qualified Code(s): E11.22 - Type 2 diabetes mellitus with diabetic chronic kidney disease; N18.31 - Chronic kidney disease, stage 3a Code(s): E11.9 - Type 2 diabetes mellitus without complications Plan Okay to discharge today; see above. Documented By: Patricio Taylor DO 12/05/23 1116 Signed By: <Electronically signed by Patricio Taylor DO> 12/05/23 1119 [facility] Work Phone: Summary Purpose Family History No Family History Records Found Relationship Condition Age at Onset Recorded Date/T heather father Unknown Heart disease Unknown Not Specified Diabetes mellitus Unknown Hypertension Unknown Unknown Advance Directives No Advanced Directives Records Found Advance Directive Response Recorded Date/ Time Advance Directives No September 09, 2021 2:51pm Chief Complaint and Reason for Visit Chief Complaint NSTEMI NSTEMI Reason for Visit Diabetes mellitus Essential hypertension NSTEMI (non-ST elevated myocardial infarction) Stage 3 chronic kidney disease Additional Source Comments (unrecognized sect ion and [...] s DATE CREATED AUTHOR AUTHOR'S ORGANIZ ATION 11/06/2021 [facility] DATE CREATED AUTHOR AUTHOR'S ORGANIZ ATION 11/20/2021 [facility] DATE CREATED AUTHOR AUTHOR'S ORGANIZ ATION 01/15/2024 [facility] DATE CREATED AUTHOR AUTHOR'S ORGANIZ ATION 05/10/2024 [facility] DATE CREATED AUTHOR AUTHOR'S ORGANIZ ATION 05/14/2024 [facility] DATE CREATED AUTHOR AUTHOR'S ORGANIZ ATION 05/23/2024 [facility] DATE CREATED AUTHOR AUTHOR'S ORGANIZ ATION 06/15/2024 [facility] Care Team (unrecognized sect ion and content) Team Status: Active Member Role Status Dates Raul Byrd MD Primary Care Provider Active Team Status: Inactive Member Role Status Dates Raul Byrd MD Primary Care Provider Active Start: December 03, 2023 End: December 05, 2023 Kailey Velasquez MD Admit Provider Active Start : December 03, 2023 End: December 05, 2023 Paul Barriga DO Attending Provider Active St art: December 03, 2023 End: December 05, 2023 Team Status: Active Member Role Status Dates Raul Byrd MD Primary Care Provider Active Start: December 04, 2023 Kailey Velasquez MD Admit Provider, Att ending Provider Active Start: December 04, 2023 Paul Barriga DO Other Provider Active Start: December 04, 2023 Ivania Garnett RN Other Provider Active Star t: December 04, 2023 Patricio Taylor DO Other Provider Active Start : December 04, 2023 Veronica Yates MD Other Provider Active Start: December 04, 2023 Jhon King MD Other Provider Active Start: December 04, 2023 Dannie Shaw MD Other Provider Active St art: December 04, 2023 Marcos Mora MD Other Provider Active Start: December 04, 2023 Santa Wang APRN Other Provider Active Start : December 04, 2023 Alycia Lopez MD Other Provider Active Start: A pril 2023 Silvano Angel MD Other Provider Active Start: December 04, 2023 Nikunj Norton MD Other Provider Active Start: A pril 2023 Ana Cristina Ramey , PEDIATRICS PHYSICIAN- Other Provider Active Sta rt: December 04, 2023 Kassidy Oconnor MD Other Provider Active Start: December 04, 2023 FOR RECORDS PERTAINING TO PATIENTS WHO ARE [...] BE BASED ON THE PRIMARY CLINICAL RECORDS. [facility] [employer] provides no warranty or guarantee of the accuracy or completeness of information in this document.
[2024-07-07 08:25] LABS: Alanine Aminotransferase 34 U/L (16-63); Aspartate Amino Transferase 23 U/L (15-37); Chol HDL Ratio 2.8; Cholesterol 79 mg/dL (<=200); HDL Cholesterol 28 mg/dL (40-60); Triglycerides 94 mg/dL (<=150); VLDL CHOLESTEROL 18.8 mg/dL
== END 2024-07-07 07:22 | disposition home or self-care (01) ==
LOC: LAB 07:22
PROVIDERS: PCP Family Medicine; Visit Provider Internal Medicine Cardiovascular Disease
DX: I25.10 Atherosclerotic heart disease of native coronary artery without angina pectoris (principal); I21.3 ST elevation (STEMI) myocardial infarction of unspecified site; E78.2 Mixed hyperlipidemia
CPT/HCPCS: 36415; 80061; 84450; 84460

== ENCOUNTER 2024-12-27 08:34 | Outpatient (OUT) | payer OTHER, SELFPAY ==
[2024-12-27 10:29] LABS: Alanine Aminotransferase 30 U/L (16-63); Aspartate Amino Transferase 17 U/L (15-37); Chol HDL Ratio 2.9; Cholesterol 94 mg/dL (<=200); HDL Cholesterol 32 mg/dL (40-60); Triglycerides 107 mg/dL (<=150); VLDL CHOLESTEROL 21.4 mg/dL
== END 2024-12-27 08:35 | disposition home or self-care (01) ==
LOC: LAB 08:36
PROVIDERS: PCP Family Medicine; Visit Provider Internal Medicine Cardiovascular Disease
DX: E78.2 Mixed hyperlipidemia (principal)
CPT/HCPCS: 36415; 80061; 84450; 84460